=== PATIENT | female | born 1950 | race Caucasian/White ===

== ENCOUNTER 2017-08-26 21:36 | Observation (INO) | payer BC, OTHER ==
[2017-08-26 22:45] LABS: Absolute Lymphocytes (CBC) 2.4 K/uL (0.7-4.9); Absolute Monocytes 0.5 K/uL (0.1-1.3); Absolute Neutrophil 7.7 K/uL (1.8-8.0); Basophils % 0.5 % (0-1.3); Hematocrit 35.6 % (36.0-45.0); Lymphocytes % 22.2 % (15.3-44.8); MCH 29.1 pg (27.0-35.0); MPV 8.3 fL (7.6-11.3); RBC Red Blood Cell Count 4.19 M/uL (3.86-4.86)
[2017-08-26] MEDS ORDERED: ASPIRIN 81 MG CHEWABLE TABLET ONE (22:48)
[2017-08-26 22:56] LABS: Bicarbonate 26 mEq/L (21-31); Glucose Level 97 mg/dL (65-120); Potassium 3.8 mEq/L (3.6-5.0); Sodium Level 135 mEq/L (135-145)
[2017-08-26 23:02] LABS: ALT/SGPT 23 IU/L (10-60); AST/SGOT 18 IU/L (10-42); Albumin 3.6 g/dL (3.2-5.5); Alkaline Phosphatase 25 IU/L (42-121); BUN Blood Urea Nitrogen 25 mg/dL (6-20); Bilirubin Direct 0.1 mg/dL (0-0.2); Bilirubin Total 0.4 mg/dL (0.3-1.2); Creatine Phosphokinase 24 IU/L (22-269); Glomerular Filtration Rate > 90 mL/min (=/>90); Magnesium 1.7 mg/dL (1.8-2.5); Protein, Total 6.4 g/dL (6.0-8.3)
[2017-08-26 23:16] LABS: Protime INR 0.99
--- NOTE | 2017-08-27 01:10 | ER ---
Nurse's Notes [facility] Name: Gregoria Vela Age: 67 yrs Sex: Female : 1950 Arrival Date: 08/26/2017 Time: 21:40 Bed 6 Private MD: Diagnosis: Acute Chest pain;Acute shortness of breath Presentation: 08/26 21:47 Presenting complaint: Patient states: Chest pain that began at 1847; Took some antacids lp1 with no relief; pain to center of chest, burning up to neck and face. Transition of care: patient was not received from another setting of care. Onset of symptoms was August 26, 2017 at 18:47. Care prior to arrival: None. 21:47 Method Of Arrival: Wheelchair lp1 21:47 Acuity: ERIC 3 lp1 Historical: - Allergies: 21:50 Tylenol; lp1 - Home Meds: 21:50 Lisinopril Oral [Active]; fenofibrate oral oral [Active]; Aspirin Oral [Active]; lp1 Isosorbide Mononitrate Oral [Active]; Premarin Oral [Active]; Prozac Oral [Active]; Prevacid Oral [Active]; - PMHx: 21:50 lymphoma; Hypertension; Hyperlipidemia; skin cancer; lp1 - PSHx: 21:50 Hysterectomy; lp1 - Immunization history:: Adult Immunizations up to date. - Social history:: Smoking status: Patient/guardian denies using tobacco. Screenin:50 Abuse screen: Denies threats or abuse. Denies injuries from another. Nutritional lp1 screening: No deficits noted. Tuberculosis screening: No symptoms or risk factors identified. Fall Risk None identified. Assessment: 22:16 General: Appears in no apparent distress. uncomfortable, Behavior is cooperative, tl2 appropriate for age, anxious. Pain: Complains of pain in xyphoid area and mid-sternal area Pain radiates to head Pain currently is 7 out of 10 on a pain scale. Quality of pain is described as burning, sharp, stinging, Pain began this morning. Neuro: Level of Consciousness is awake, alert, obeys commands, Oriented to person, place, time, situation. Cardiovascular: Chest pain quality is burning, stabbing, is located in epigastric area radiates neck episodes are intermittent last 2-3 minutes. Respiratory: Airway is patent Respiratory effort is even, unlabored, Respiratory pattern is regular, symmetrical. GI: reports nausea during pain episodes. : No signs and/or symptoms were reported regarding the genitourinary system. Derm: Skin is pink, warm \T\ dry. 23:07 Reassessment: Patient appears in no apparent distress at this time. No changes from tl2 previously documented assessment. Patient and/or family updated on plan of care and expected duration. Pain level reassessed. Patient is alert, oriented x 3, equal unlabored respirations, skin warm/dry/pink. 08/27 00:57 Reassessment: Patient appears in no apparent distress at this time. Patient and/or tl2 family updated on plan of care and expected duration. Pain level reassessed. Patient is alert, oriented x 3, equal unlabored respirations, skin warm/dry/pink. Pt states she has not had any more episodes of pain since arrival. Pt is ambulatory to restroom. 02:00 Reassessment: Patient appears in no apparent distress at this time. Pt will be tl2 transported to room after shift change due to [employer]inder downtime. Pt resting, no questions or concerns at this time. Vital Signs: 08/26 21:48 BP 163 / 62; Pulse 77; Resp 18; Temp 97.0(TE); Pulse Ox 97% on R/A; Weight 77.11 kg; lp1 Height 5 ft. 1 in. (154.94 cm); Pain 7/10; 22:16 BP 152 / 55; Pulse 61; Resp 13; Pulse Ox 99% on R/A; tl2 23:07 BP 166 / 60; Pulse 53; Resp 13; Pulse Ox 100% on 2 lpm NC; tl2 23:57 BP 175 / 64; Pulse 54; Resp 16; Pulse Ox 99% on 2 lpm NC; mt 08/27 00:53 BP 181 / 62; Pulse 55; Resp 16; Pulse Ox 98% on 2 lpm NC; mt 06:02 BP 159 / 61; Pulse 63; Resp 17; Pulse Ox 99% on NC; mt 07:29 BP 169 / 57; Pulse 64; Resp 18; Pulse Ox 100% ; sv 08/26 21:48 Body Mass Index 32.12 (77.11 kg, 154.94 cm) lp1 Vitals: 08/26 22:16 Cardiac Rhythm Assessment Sinus rhythm. tl2 ED Course: 21:40 Patient arrived in ED. al2 21:48 Triage completed. lp1 21:48 Arm band placed on left wrist. lp1 21:50 Patient maintains SpO2 saturation greater than 95% on room air. lp1 22:05 Yovany Huang MD is Attending Physician. wa 22:15 Edith Grullon RN is Primary Nurse. tl2 22:16 Patient has correct armband on for positive identification. Bed in low position. Call tl2 light in reach. Side rails up X2. Adult w/ patient. classroom monitor on. Pulse ox on. NIBP on. 22:16 Inserted saline lock: 20 gauge in right wrist, using aseptic technique. Blood collected.tl2 22:54 X-ray completed. Portable x-ray completed in exam room. Patient tolerated procedure la2 well. 08/27 01:08 Reza Christensen MD is Hospitalizing Provider. ca 08:00 No provider procedures requiring assistance completed. Patient admitted, IV remains in sv place. intact. Administered Medications: 08/26 22:30 Drug: Aspirin Chewable Tablet 324 mg Route: PO; tl2 08/27 06:16 Follow up: Response: No adverse reaction tl2 08/26 22:30 Drug: Nitroglycerin 0.4 mg Route: Sublingual; tl2 23:00 Follow up: Response: No adverse reaction; Pain is decreased tl2 23:46 Drug: Nitroglycerin 0.4 mg Route: Sublingual; tl2 08/27 00:30 Follow up: Response: No adverse reaction; Pain is decreased tl2 Outcome: 01:09 Decision to Hospitalize by Provider. wa 08:00 Admitted to Tele accompanied by tech, via wheelchair, with oxygen, with chart, Report sv called to Sondra BRIZUELA 08:00 Condition: stable 08:00 Instructed on the need for admit. 08:29 Patient left the ED. sv Signatures: Katlyn Mills RN RN Kasia Avila RN RN lp1 Edith Grullon RN RN 2 Francisca Morse mt, William, MD MD ca Claudia Tate [facility] Rebekah Warren2 Corrections: (The following items were deleted from the chart) 08/26 23:57 23:57 BP 175 / 64; Pulse 54bpm; Resp 16bpm; Pulse Ox 99% RA; mt mt
--- NOTE | 2017-08-27 01:10 | EDPHYS ---
Physician Documentation [facility] Name: Gregoria Vela Age: 67 yrs Sex: Female : 1950 Arrival Date: 08/26/2017 Time: 21:40 Bed 6 Private MD: ED Physician Yovany Huang Historical: - Allergies: 08/26 21:50 Tylenol; lp1 - Home Meds: 21:50 Lisinopril Oral [Active]; fenofibrate oral oral [Active]; Aspirin Oral [Active]; lp1 Isosorbide Mononitrate Oral [Active]; Premarin Oral [Active]; Prozac Oral [Active]; Prevacid Oral [Active]; - PMHx: 21:50 lymphoma; Hypertension; Hyperlipidemia; skin cancer; lp1 - PSHx: 21:50 Hysterectomy; lp1 - Immunization history:: Adult Immunizations up to date. - Social history:: Smoking status: Patient/guardian denies using tobacco. Vital Signs: 21:48 BP 163 / 62; Pulse 77; Resp 18; Temp 97.0(TE); Pulse Ox 97% on R/A; Weight 77.11 kg; lp1 Height 5 ft. 1 in. (154.94 cm); Pain 7/10; 22:16 BP 152 / 55; Pulse 61; Resp 13; Pulse Ox 99% on R/A; tl2 23:07 BP 166 / 60; Pulse 53; Resp 13; Pulse Ox 100% on 2 lpm NC; tl2 23:57 BP 175 / 64; Pulse 54; Resp 16; Pulse Ox 99% on 2 lpm NC; mt 08/27 00:53 BP 181 / 62; Pulse 55; Resp 16; Pulse Ox 98% on 2 lpm NC; mt 06:02 BP 159 / 61; Pulse 63; Resp 17; Pulse Ox 99% on NC; mt 07:29 BP 169 / 57; Pulse 64; Resp 18; Pulse Ox 100% ; sv 08/26 21:48 Body Mass Index 32.12 (77.11 kg, 154.94 cm) lp1 MDM: 08/26 22:05 Patient medically screened. sc 08/26 22:23 Order name: Basic Metabolic Panel 08/26 22:23 Order name: BNP 08/26 22:23 Order name: CBC with Diff 08/26 22:23 Order name: CPK 08/26 22:23 Order name: LFT's 08/26 22:23 Order name: Magnesium 08/26 22:23 Order name: PT-INR 08/26 22:23 Order name: Troponin ([facility] Use Only) 08/26 22:49 Order name: CBC with Automated Diff; Complete Time: 23:53 EDMS 08/26 22:56 Order name: Basic Metabolic Panel; Complete Time: 23:53 EDMS 08/26 23:03 Order name: Liver (Hepatic) Function; Complete Time: 23:53 EDMS 08/26 23:03 Order name: Creatine Phosphokinase; Complete Time: 23:53 EDMS 08/26 23:03 Order name: Magnesium; Complete Time: 23:53 EDMS 08/26 23:03 Order name: Troponin ([facility] Use Only); Complete Time: 23:53 EDMS 08/26 22:23 Order name: XRAY Chest (1 view) 08/26 22:23 Order name: EKG; Complete Time: 22:24 08/26 22:23 Order name: Cardiac monitoring; Complete Time: 22:25 08/26 22:23 Order name: EKG - Nurse/Tech; Complete Time: 22:25 08/26 22:23 Order name: IV Saline Lock; Complete Time: 22:25 08/26 22:23 Order name: Labs collected and sent; Complete Time: 22:25 08/26 22:23 Order name: O2 Per Protocol; Complete Time: 22:25 08/26 22:23 Order name: O2 Sat Monitoring; Complete Time: 22:25 08/26 22:23 Order name: Urine Dipstick-Ancillary (obtain specimen); Complete Time: 00:57 08/26 23:06 Order name: BNP B-Type Natriuretic Peptide; Complete Time: 23:53 EDMS 08/26 23:17 Order name: Protime (+INR); Complete Time: 23:53 EDMS 08/27 01:09 Order name: Urine Dipstick--Ancillary (enter results) lp1 08/27 01:16 Order name: Urine Dipstick-Ancillary; Complete Time: 15:45 EDMS Administered Medications: 22:30 Drug: Aspirin Chewable Tablet 324 mg Route: PO; tl2 08/27 06:16 Follow up: Response: No adverse reaction tl2 08/26 22:30 Drug: Nitroglycerin 0.4 mg Route: Sublingual; tl2 23:00 Follow up: Response: No adverse reaction; Pain is decreased tl2 23:46 Drug: Nitroglycerin 0.4 mg Route: Sublingual; tl2 08/27 00:30 Follow up: Response: No adverse reaction; Pain is decreased tl2 Disposition: 08/27/17 01:09 Hospitalization ordered by Reza Christensen for Inpatient Admission. Preliminary diagnosis are Acute Chest pain, Acute shortness of breath. - Bed requested for Telemetry/MedSurg (Inpatient). - Status is Inpatient Admission. sv - Condition is Stable. - Problem is new. - Symptoms have improved. UTI on Admission? No Addendum: 09/08/2017 15:48 Addendum: CC: chest pain. HPI: 67 yo F c/o CP began at 1847 hrs. midsternal location. w a sharp, burning. radiates to neck and face. h/o same yesterday, lasted about 30 min. h/o same in the past. told has angina but did not f/u with the "heart doc". denies SOB, nausea, or diaphoresis. describes pain as 7/10 at the moment. PMHx: HTN. lymphoma. skin CA. elevated chol. PSurgHx: Hysterectomy. SHx: denies tobacco, ETOH or recreational drugs. Meds: lisinopril. isosorbide. finofibrate. premarin. prozac. prevacid. Allergies: tylenol. ROS: noted for chest pain. all other systems otherwise reviewed and negative. EXAM: Const: mild discomfiort secondary to chest pain. HEENT: normocephalic. atraumatic. pupils equal. throat clear. neck supple. CVS: NS1S2. RRR. no murmurs. CHEST: clear to auscultation bilaterally. normal excursion. Abd: soft. non-distended. no masses. Ext: no edema. no swelling. Neuro: appropriate for age. CN II-XII intact. no lateralizing deficits. Psych: pleasant. nml affect. DDx: r/o ACS, consider GI etiology. r/o pna. r/o pancreatitis. Plan: monitor. ASA. Nitro. check labs, EKG, CXR. reassess. Results: labs wnl. CXR: nml. EKG: no acute STEMI. reassessment: pain resolved with ASA and nitro in ED. concern for ACS. admit. cardiology consult. Dx: chest pain. . Signatures: Dispatcher [employer] EDMS Misa Copeland RN RN kl Verde, Stephanie, RN RN sv Pena, Laura, RN RN lp1 Edith Grullon RN RN tl2 Yovany Huang MD MD wa
[2017-08-27 01:16] LABS: Urine Blood NEGATIVE (NEG); Urine Glucose TRACE (NEG); Urine Protein NEGATIVE (NEG); Urine Specific Gravity 1.025 (1.005-1.030); Urine pH 6.5 (5.0-7.0)
--- NOTE | 2017-08-27 01:34 | P.HP ---
Certification for Inpatient Patient admitted to: Observation With expected LOS: <2 Midnights Practitioner: I am a practitioner with admitting privileges, knowledge of patient current condition, hospital course, and medical plan of care. Services: Services provided to patient in accordance with Admission requirements found in Title 42 Section 412.3 of the Code of Federal Regulations Patient History Date of Service: 08/27/17 Reason for admission: chest pain History of Present Illness: Ms Vela is a 67 years old woman with history of HTN, dyslipidemia, who had an episode of chest pain yesterday afternoon, located on substernal area, burning sensation 8/10, no rediated, associated with nausea and diaphoresis. The pain last for 12 seconds. Last night she had a new chest pain episode, located in substernal area, this time was pressure like, associated with nausea and diaphoresis as well. It improved after receive Nitro in ER. The patient states that she had chest pain in the past, she had cardiac work up in the past and was told that she has mild CHF. - Past Medical/Surgical History Diabetic: No -: lymphoma; Hypertension; Hyperlipidemia; skin cancer; -: GERD -: Hysterectomy - Family History Family History: Reviewed- Non-Contributory - Social History Smoking Status: Former smoker Alcohol use: No CD- Drugs: No Place of Residence: Home Review of Systems 10-point ROS is otherwise unremarkable Physical Examination - Physical Exam General: Alert, In no apparent distress HEENT: Atraumatic, PERRLA, Mucous membr. moist/pink, EOMI, Sclerae nonicteric Neck: Supple, 2+ carotid pulse no bruit, No LAD, Without JVD or thyroid abnormality Respiratory: Clear to auscultation bilaterally, Normal air movement Cardiovascular: Regular rate/rhythm, Normal S1 S2 Gastrointestinal: Normal bowel sounds, No tenderness Musculoskeletal: No tenderness Integumentary: No rashes Neurological: Normal speech, Normal strength at 5/5 x4 extr, Normal tone, Normal affect Lymphatics: No axilla or inguinal lymphadenopathy - Studies Laboratory Data (last 24 hrs) 08/26/17 22:20: PT 11.8, INR 0.99 08/26/17 22:20: WBC 10.6, Hgb 12.2, Hct 35.6 L, Plt Count 246 08/26/17 22:20: B-Natriuretic Peptide 35 08/26/17 22:20: Sodium 135, Potassium 3.8, BUN 25 H, Creatinine 0.57, Glucose 97 , Magnesium 1.7 L, Total Bilirubin 0.4, AST 18, ALT 23, Alkaline Phosphatase 25 L Assessment and Plan - Problems (Diagnosis) (1) Chest pain Current Visit: Yes Status: Acute Qualifiers: Chest pain type: precordial pain Qualified Code(s): R07.2 - Precordial pain (2) HTN (hypertension) Current Visit: Yes Status: Acute Qualifiers: Hypertension type: essential hypertension Qualified Code(s): I10 - Essential (primary) hypertension (3) Dyslipidemia Current Visit: Yes Status: Acute - Plan Ms Vela will be admitted to the hospital due to chest pain in order to R/O ACS. So far trop is negative, EGG remarkable for T wave inversion on septal leads. Will continue serial cardiac enzymes and EKG's, consult cardiology team. - Advance Directives Does patient have a Living Will: No Does patient have a Durable POA for Healthcare: No - Code Status/Comfort Care Code Status Assessed: Yes Code Status: Full Code
--- NOTE | 2017-08-27 05:12 | EKG ---
Test Date: 2017-08-26 Test Time: 21:56:37 Evs Attendant: ANNA MEASUREMENT RESULTS: Intervals: Rate: 60 IN: 122 QRSD: 78 QT: 420 QTc: 420 [place]: P: 55 IN: 122 QRS: -2 T: 45 INTERPRETIVE STATEMENTS: Normal sinus rhythm Nonspecific ST and T wave abnormality Abnormal ECG No previous ECG available for comparison Electronically Signed On 08-27-17 05:11:43 CDT by Jimmy Estrada
[2017-08-27] MEDS ORDERED: ONDANSETRON 4 MG/2 ML VIAL IV PRN (08:33)
[2017-08-27] MEDS ORDERED: ACETAMINOPHEN 500 MG TAB PO PRN (08:33)
--- NOTE | 2017-08-27 08:44 | RAD REPORT ---
EXAM DESCRIPTION: RAD - Chest Single View - 08/26/2017 10:56 pm CLINICAL HISTORY: Chest pain COMPARISON: None. TECHNIQUE: AP portable chest image was obtained 2251 hours . FINDINGS: Lungs are clear. Heart and vasculature are normal. No measurable pleural effusion and no p neumothorax. No gross bony abnormality seen. No acute aortic findings suspected. IMPRESSION: No acute cardiopulmonary process.
[2017-08-27 08:51] VITALS: BMI 32.1
[2017-08-27] MEDS ORDERED: ENOXAPARIN 40 MG/0.4 ML SQ SCH (09:00)
[2017-08-27] MEDS ORDERED: ASPIRIN EC 81 MG TAB PO SCH (09:00)
--- NOTE | 2017-08-27 10:47 | EKG ---
Test Date: 2017-08-27 Test Time: 09:31:26 Paint Maker: NESTOR MEASUREMENT RESULTS: Intervals: Rate: 65 IN: 136 QRSD: 90 QT: 430 QTc: 447 [place]: P: 46 IN: 136 QRS: -3 T: 71 INTERPRETIVE STATEMENTS: Normal sinus rhythm Non specific T abnormality Abnormal ECG Compared to ECG 08/26/2017 21:56:37 no significant change from previous ECG Electronically Signed On 08-27-17 10:46:51 CDT by Jimmy Estrada
[2017-08-27] MEDS: PANTOPRAZOLE 40MG TABLET PO SCH (12:47)
[2017-08-27] MEDS: TRAMADOL HCL 50 MG TAB PO PRN ×2 (13:50→20:22)
[2017-08-27] MEDS ORDERED: ISOSORBIDE MONO SR 30 MG TAB PO SCH (15:00)
[2017-08-27] MEDS: hydroCHLOROthiazide 12.5 MG CAP PO SCH (15:18)
--- NOTE | 2017-08-27 15:48 | CON ---
Chief Complaint: Chest pain. History Of Present Illness: Light night at 3:37 exactly, she had intense pain upper left side of her chest. Then she had pain all over her face and head and went away when she reached the emergency ro om. She never had any electrocardiographic changes. In the emergency room, the physicians gave her nothing that actually relieved her pain. Later she was started on aspirin and sublingual nitroglycer in. Her pain was already gone by the time she had received that. The patient has a history of a fol licular lymphoma. She has undergone chemotherapy. She says it is in remission. It was stage 3 to b egin with, apparently no surgery other than biopsy. No radiation was involved in the treatment. She has underlying anxiety and depression. 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 He has d one stress tests and echocardiograms. No cardiac cath was ever done and of course, no bypass surgery or stents. Outpatient Medications: Lumigan eye drops, Prozac, isosorbide mononitrate, conjugated estrogens, asp irin, fenofibrate, lisinopril, hydrochlorothiazide, and Prevacid. Physical Examination: Vital Signs: Height 5 feet 1 inches, 170 pounds. HEENT: Unremarkable. Carotids: No bruit. Lungs: Clear. Cardiac: Within normal limits. Abdomen: Soft. Extremities: Normal. Laboratory Data: Troponins are normal. Her EKG shows a nonspecific T-wave abnormality. Apparently, it is look like that for some time. Impression And Plan: I think we should check other enzymes, have her do a nuclear stress test and ca rdiac ultrasound of the abdomen to see if we can understand what is actually causing her pain. Clearly does not seem to be an acute OK. NOA/MODL Voice ID: [id number] Report ID: [id number]
[2017-08-27] MEDS: LISINOPRIL 20 MG TAB PO SCH (17:09)
[2017-08-27] MEDS ORDERED: HOME MED 1 EA UNK (Lisinopril/Hydrochlorothiazide [Lisinopril-Hctz 20-12.5 Mg Tab] 1 TAB) PO SCH (18:00)
[2017-08-27] MEDS ORDERED: FENOFIBRATE 160 MG TAB PO SCH (18:00)
--- NOTE | 2017-08-27 20:39 | RAD REPORT ---
EXAM DESCRIPTION: US - Abdomen Exam Complete - 08/27/2017 8:31 pm CLINICAL HISTORY: Abdominal pain COMPARISON: None. FINDINGS: Gallbladder size is normal. No gallstones, wall thickening or pericholecystic fluid. Commo n bile duct is normal with no common duct stone identified. The liver and spleen show no focal findin gs. Coarsened, increased echogenicity of the liver is present. This is nonspecific but commonly seen with fatty infiltration. The pancreas is normal. No hydronephrosis or suspicious mass in either kidney. Aorta is normal is size. No ascites or bulky lymphadenopathy. IMPRESSION: No gallbladder or biliary tree abnormality. Probable fatty infiltration of the liver.
[2017-08-28] MEDS: LISINOPRIL 20 MG TAB PO SCH (06:08)
[2017-08-28] MEDS: hydroCHLOROthiazide 12.5 MG CAP PO SCH (06:13)
[2017-08-28] MEDS: PANTOPRAZOLE 40MG TABLET PO SCH (06:35)
[2017-08-28] MEDS ORDERED: FLUOXETINE 20 MG CAP PO SCH (09:00)
[2017-08-28] MEDS ORDERED: ASPIRIN EC 81 MG TAB PO SCH (09:00)
[2017-08-28] MEDS ORDERED: HOME MED 1 EA UNK (Fluoxetine Hcl [Fluoxetine Hcl] 20 MG) PO SCH (09:00)
[2017-08-28] MEDS ORDERED: ISOSORBIDE MONO SR 30 MG TAB PO SCH (09:00)
[2017-08-28] MEDS ORDERED: REGADENOSON 0.4 MG/5 ML SYR IV ONE (11:46)
[2017-08-28] MEDS: TRAMADOL HCL 50 MG TAB PO PRN (13:17)
--- NOTE | 2017-08-28 13:21 | RAD REPORT ---
EXAM DESCRIPTION: NM - Rest Stress Cardiac Imaging - 08/28/2017 1:14 pm CLINICAL HISTORY: Chest pain. COMPARISON: None. TECHNIQUE: The patient was administered approximately 10mCi of Tc 99m Sestamibi prior to resting SPE CT imaging of the heart. The patient was then administered approximately 30 mCi of Tc 99m Sestamibi f ollowing exercise or pharmacologic stress. Multiplanar SPECT images were reviewed. FINDINGS: A small area of diminished radiotracer activity involves the apical left ventricular myoc ardium on rest and stress images. Otherwise there is uniformity of radiotracer activity involving the left ventricular myocardium. The left ventricular ejection fraction equals 73% IMPRESSION: Small area of diminished radiotracer uptake involving the apical wall probably is physio logic. There is no evidence of stress-induced ischemia
[2017-08-28 13:34] VITALS: O2SAT 96
--- NOTE | 2017-08-28 13:38 | ECHO ---
HEIGHT: 5 ft 1 in WEIGHT: 170 lb 0 oz DATE OF STUDY: 08/28/[address]: Jimmy Estrada MD 2-DIMENSIONAL: YES M.MODE: YES DOPPLER: YES COLOR FLOW: YES TDS: NO PORTABLE: NO DEFINITY: NO BUBBLE STUDY: NO DIAGNOSIS: CHEST PAIN CARDIAC HISTORY: CATHERIZATION: NO SURGERY: NO PROSTHETIC VALVE: NO PACEMAKER: NO MEASUREMENTS (cm) DIASTOLIC (NORMALS) SYSTOLIC (NORMALS) IVSd 0.8 (0.6-1.2) LA Diam 3.4 (1.9-4.0) LVEF 65% LVIDd 4.7 (3.5-5.7) LVIDs 3.1 (2.0-3.5) %FS 35% LVPWd 0.7 (0.6-1.2) Ao Diam 2.8 (2.0-3.7) 2 DIMENSIONAL ASSESSMENT: RIGHT ATRIUM: NORMAL LEFT ATRIUM: NORMAL RIGHT VENTRICLE: NORMAL LEFT VENTRICLE: NORMAL TRICUSPID VALVE: NORMAL MITRAL VALVE: NORMAL PULMONIC VALVE: NORMAL AORTIC VALVE: NORMAL PERICARDIAL EFFUSION: NONE AORTIC ROOT: NORMAL LEFT VENTRICULAR WALL MOTION: NORMAL. DOPPLER/COLOR FLOW: NORMAL. COMMENTS: NORMAL 2D ECHO WITH DOPPLER. TECHNOLOGIST: JOANIE FONTANA
[2017-08-28 16:20] VITALS: BP 134/61; TEMP 97.4
--- NOTE | 2017-08-28 16:48 | TREADPHA ---
DX: CHEST PAIN Date of Study: 08/28/2017 Ht: 5' 1 " Wt: 170 lb 0 oz Consulting Physician: LOC MEDICATIONS: ASPIRIN, TRICOR, PROZAC, IMDURM, PRINIVIL, ZOFRAN, PROTONIX, ULTRAM HISTORY: 67 YEAR OLD FEMALE HERE FOR CHEST PAIN. HISTORY OF LYMPHOMA, HYPERTENSION, HYPERLIPIDEMIA AND SKIN CANCER. PHYSICIAL EXAMINATION: RESTING B.P.: 156/50 RESTING H.R.: 76 RESTING EKG: NON-SPECIFIC T WAVE ABNORMALITY PROTOCOL: EXERCISE TIME: 3:30 B.P. AT PEAK STRESS: 76 IMPRESSION: LEXISCAN STRESS TEST PERFORMED. CARDIOLITE INJECTED PER PROTOCOL. NO ARRHYTHMIAS NOTED. DENIES CHEST PAIN. SEE NUCLEAR MEDICINE REPORT. NON-DIAGNOSTIC ELECTROCARDIOGRAM WITH LEXISCAN STRESS.
--- NOTE | 2017-08-28 17:22 | RAD REPORT ---
EXAM DESCRIPTION: CT - Angio Aorta For Dissection - 08/28/2017 5:12 pm CLINICAL HISTORY: Weakness, chest pain, prior hysterectomy, prior lymphoma diagnosis COMPARISON: Chest exam August 26 TECHNIQUE: Dynamically enhanced 3 mm thick images of the chest, abdomen, and upper pelvis were obtai justina during administration of approximately 150mL Isovue 370 IV contrast. Sagittal and coronal reconst ruction images were generated and reviewed. Exam utilizes a protocol to evaluate entire course of the aorta. All CT scans are performed using dose optimization technique as appropriate and may include automated exposure control or mA/KV adjustment according to patient size. FINDINGS: Aorta is normal in diameter with no dissection or other acute aortic findings. Reconstruct ion images show no worrisome findings. Patient has aortoiliac atherosclerotic calcifications. No disp laced calcifications. Aortic arch is four-vessel variant with the vertebral artery on the left arisin g proximal to the subclavian artery. Pulmonary arteries are normal as well. No cardiomegaly, pericardial thickening or pericardial effusio n. No mass or infiltrate in the lung parenchyma. No pleural thickening, pleural effusion or pneumothorax . No abnormal mediastinal or hilar mass or lymphadenopathy seen. No chest wall mass or abnormal axillar y lymphadenopathy. Celiac, SMA and renal arteries show no suspicious findings. Probable fatty infiltration of the liver. No focal liver lesion. Spleen and pancreas are unremarkable. No gallbladder or biliary tree abnormal ity. No mass or abnormal lymphadenopathy. No free air, free fluid or inflammatory stranding. Urinary bladder is contracted. Uterus is absent. Pelvic floor phleboliths are present. Disc and bony degenerative changes are present. No acute or destructive bone process seen. IMPRESSION: Negative CT scan of the aorta. CT chest, abdomen and pelvis otherwise show no acute findings. Nonacute findings are detailed in the body of the report.
--- NOTE | 2017-08-29 02:24 | DS ---
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 Procedures: Nuclear stress test on 08/28/2017, negative. No evidence of stress -induced ischemia. Admitting Diagnoses: 1. Chest pain. 2. Hypertension, essential. 3. Dyslipidemia. 4. Glaucoma. 5. History of lymphoma. 6. Gastroesophageal reflux disease, proton-pump inhibitor. Discharge Diagnoses: 1. Chest pain. Acute coronary syndrome ruled out. 2. Essential hypertension, stable. 3. Dyslipidemia. 4. History of lymphoma. 5. History of skin cancer. 6. Gastroesophageal reflux disease on proton-pump inhibitor. Hospital Course: The patient is a 67-year-old female, who came in with chest pain. She was admitted to the hospital for chest pain, rule out ACS. The patient's enzymes were negative. She did not have any changes on her EKG. The patient was seen by Cardiology, recommended stress test. Stress test was done which was negative for any stress-induced ischemia. Chest x-ray did not show any acute cardiopulmonary process. Echocardiogram showed EF of 65% without any other abnormalities. The patient also had abdominal ultrasound done which showed no gallbladder or biliary tree abnormality, did show some fatty infiltration of the liver. CT scan was done to rule out aortic dissection which was negative. The patient's symptoms improved. She was chest pain free. Her vital signs were stable. Her labs were within normal limits. The patient was then cleared for discharge from Cardiology standpoint. Followup: The patient to follow up with primary care physician in 2 to 3 days. Follow up with director social, Dr. Godwin, in 2 weeks. Return to ER for worsening condition. Diet: Heart healthy. Medications: As per medication reconciliation list. Activity: As tolerated. Physical Examination: General: Awake, alert, oriented x3. No acute distress. CV: S1, S2. No murmurs. Peripheral pulses present. Respiratory: Moving air well bilaterally. No wheezing. Abdomen: Soft, nontender, nondistended. Positive bowel sounds. Extremities: No clubbing, cyanosis, or edema. Neurologic: Nonfocal. SA/MODL Voice ID: [id number] Report ID: [id number] [facility]
== END 2017-08-28 18:20 | disposition home or self-care (01) ==
LOC: ER 21:36 → INTOOBSV 08-27 01:09 → ERHOLD 08-27 01:09 → 4TH 08-27 01:53
PROVIDERS: ADMIT Internal Medicine; ATTEND Internal Medicine
DX: R07.9 Chest pain, unspecified (principal); I10 Essential (primary) hypertension; E78.5 Hyperlipidemia, unspecified; Z85.72 Personal history of non-Hodgkin lymphomas; Z85.828 Personal history of other malignant neoplasm of skin; K21.9 Gastro-esophageal reflux disease without esophagitis
CPT/HCPCS: 36415; 71045; 71275; 74175; 76700; 78452; 80048; 80076; 81003; 82550; 83735; 83880; 84484; 85025; 85610; 93005; 93017; 93306; 99285; A9500; G0378; J1650; J2785; Q9967

== ENCOUNTER 2019-02-08 12:49 | Emergency (ER) | payer BC, SELFPAY ==
--- OUTSIDE RECORDS SUMMARY | 2019-02-08 12:51 | XMS REPORT | Continuity of Care Document ---
:1950 Author Organization [employer] Care Team Providers Name Role Phone Maxta Information Vaultive Unavailable Unavailable Problems Problem Status Onset Classification Date Comments Source Date Reported C83.3 Active [place] 6 [place] MESENTERIC LYMPH Active [facility] NODE-I88.0 6 [place] Angina pectoris, Resolved Problem 06/03/2016 [place] unspecified [place] Anxiety Active Problem 06/03/2016 [facility] Back pain Active Problem 06/03/2016 [facility] Acid reflux Active Problem 06/03/2016 [facility] Hypertension Active Problem 06/03/2016 [place] Skin cancer Resolved Problem 06/03/2016 [place] Neck pain Active Problem 06/03/2016 [facility] Medications Medication Details Route Status Patient Ordering Order Source Instructions Provider Date Roxicodone 5 mg, Route: Inactive PO, ONCE, 2015 [place] Dosing Weight [place] 67.864, kg, Start date: 05/02/16 14:33:00 CLAY WASHER, Stop date: 05/02/16 14:33:00 CLAY WASHER glycopyrrolate Route: IV, Drug Inactive (ANES) form: INJ, 2015 [place] ONCE, Stop [place] date: 05/02/16 12:36:00 CLAY WASHER neostigmine (ANES) Route: IV, Drug Inactive form: INJ, 2015 [place] ONCE, Stop [place] date: 05/02/16 12:36:00 CLAY WASHER Meperidine 12.5 mg, 0.5 Inactive mL, Route: IVP, 2015 [place] Drug form: INJ, [place] Q30Min, Dosing Weight 67.864, kg, PRN Other -See Comment, For shivering, Start date: 05/02/16 12:29:00 CLAY WASHER, Duration: 2 doses or times, Stop date: Limited # of timesNotes: (Same as: Demerol) "Use Precaution in Elderly, Seizure disorders, and Renal impairment" Dexamethasone 4 mg, 1 mL, Inactive Route: IVP2015 [place] Drug form: INJ, [place] ONCE, Dosing Weight 67.864, kg, PRN Nausea & Vomiting, Start date: 05/02/16 12:29:00 CSTNotes: Concentration: 4mg/ml Ondansetron 4 mg, 2 mL, Inactive Route: IVP2015 [place] Drug form: INJ, [place] ONCE, Dosing Weight 67.864, kg, PRN Nausea & Vomiting, Start date: 05/02/16 12:29:00 CSTNotes: (Same as: Zofran) MEDICATION WASTE Product Size: 4 mg Product Wasted: ___ mg Ketorolac 30 mg, 1 mL, Inactive Route: IVP2015 [place] Drug form: INJ, [place] ONCE, Dosing Weight 67.864, kg, Start date: 05/02/16 12:29:00 CLAY WASHER, Duration: 1 doses or times, Stop date: 05/02/16 12:29:00 CSTNotes: (Same as:Toradol) IV bolus must be given >15 seconds. Give IM administration slowly and deeply into the muscle. Not for use > 4 days MEDICATION WASTE Product Size: 30 mg Product Wasted: ___ mg Oxycodone 2.5 mg, 2.5 mL, Inactive Route: PO, Drug 2015 [place] form: LIQ, Q4H, [place] Dosing Weight 67.864, kg, PRN Pain Score 4-6, Start date: 05/02/16 12:29:00 CLAY WASHER, Duration: 30 day, Stop date: 06/01/16 12:28:00 CSTNotes: (Same as: 'Roxicodone) Acetaminophen 1,000 mg, Inactive Route: IVPB2015 [place] Drug form: INJ, [place] Q6H, Dosing Weight 67.727, kg, PRN Pain Score 1-3, Start date: 05/02/16 12:29:00 CLAY WASHER, Duration: 1 doses or times, Stop date: Limited # of times Labetalol 10 mg, 2 mL, Inactive Route: IVP, 2015 [place] Drug form: INJ, [place] Q5Min, Dosing Weight 67.864, kg, PRN Elevated BP, Start date: 05/02/16 12:29:00 CLAY WASHER, Duration: 5 doses or times, Stop date: Limited # of timesNotes: (Same as: Normodyne, Trandate) Push over 2 minutes Give bolus over 2-3 minutes. Naloxone 0.4 mg, 1 mL, Inactive Route: IVP, 2015 [place] Drug form: INJ, [place] Q2MIN, Dosing Weight 67.864, kg, PRN Narcotic Reversal, Start date: 05/02/16 12:29:00 CLAY WASHER, Duration: 8 doses or times, Stop date: Limited # of timesNotes: Same as Narcan Flumazenil 0.2 mg, 2 mL, Inactive Route: IVP2015 [place] Drug form: INJ, [place] PRN, Dosing Weight 67.864, kg, PRN Benzodiazepine Reversal, Initial dose, Start date: 05/02/16 12:29:00 CLAY WASHER, Duration: 30 day, Stop date: 06/01/16 12:28:00 CSTNotes: (Same as: Romazicon) Hydromorphone 0.5 mg, 0.25 Inactive mL, Route: IVP2015 [place] Drug form: INJ, [place] Q5Min, Dosing Weight 67.864, kg, PRN Pain Score 7-10, Start date: 05/02/16 12:29:00 CLAY WASHER, Duration: 4 doses or times, Stop date: Limited # of timesNotes: Same as Dilaudid POLYETHYLENE GLYCOL 17 gm, PO, Active 3350 142 MG/ML Oral Daily, PRN 2016 [facility] Solution [Miralax] Constipation, X [place] 31 day, # 527 gm, 0 Refill(s) tramadol 50 mg=1 tab, Active hydrochloride 50 MG PO, Q6H, PRN 2016 [place] Oral Tablet Pain, X 7 day, Land # 28 tab, 0 Refill(s) ondansetron (ANES) Route: IV, Drug Inactive form: INJ, 2015 [place] ONCE, Stop [place] date: 05/02/16 11:54:00 CLAY WASHER ePHEDrine (ANES) Route: IV, Drug Inactive form: INJ, 2015 [place] ONCE, Stop [place] date: 05/02/16 11:14:00 CLAY WASHER metoclopramide Route: IV, Drug Inactive (ANES) form: INJ, 2015 [place] ONCE, Stop [place] date: 05/02/16 11:04:00 CLAY WASHER famotidine (ANES) Route: IV, Drug Inactive form: INJ, 2015 [place] ONCE, Stop [place] date: 05/02/16 11:04:00 CLAY WASHER rocuronium (ANES) Route: IV, Drug Inactive form: INJ, 2015 [place] ONCE, Stop [place] date: 05/02/16 11:04:00 CLAY WASHER acetaminophen (ANES) Route: IV, Drug Inactive form: INJ, 2015 [place] ONCE, Stop [place] date: 05/02/16 11:04:00 CLAY WASHER propofol (ANES) Route: IV, Drug Inactive form: INJ, 2015 [place] ONCE, Stop [place] date: 05/02/16 10:59:00 CLAY WASHER succinylcholine Route: IV, Drug Inactive (ANES) form: INJ, 2015 [place] ONCE, Stop [place] date: 05/02/16 10:59:00 CLAY WASHER midazolam (ANES) Route: IV, Drug Inactive form: SOLN, 2015 [place] ONCE, Stop [place] date: 05/02/16 10:59:00 CLAY WASHER fentaNYL (ANES) Route: IV, Drug Inactive form: INJ, 2015 [place] ONCE, Stop [place] date: 05/02/16 10:59:00 CLAY WASHER lidocaine (ANES) Route: IV, Drug Inactive form: INJ, 2015 [place] ONCE, Stop [place] date: 05/02/16 10:59:00 CLAY WASHER cefOXitin (ANES) Route: IV, Drug Inactive form: INJ, 2015 [place] ONCE, Stop [place] date: 05/02/16 10:54:00 CLAY WASHER LR 1000 mL INJ Route: IV, Inactive (ANES) Total Volume: 2015 [place] 1,000, Start [place] date: 05/02/16 10:19:00 CLAY WASHER, Stop date: 05/02/16 11:19:00 CLAY WASHER Neurontin 300 mg, 1 cap, Inactive Route: PO, Drug 2015 [place] form: CAP, [place] ONCE, Start date: 05/02/16 9:30:00 CLAY WASHER, Stop date: 05/02/16 9:30:00 CSTNotes: (Same as: Neurontin) Calcium Chloride 1,000 mL, Rate: Inactive 0.0014 MEQ/ML / 25 ml/hr, 2015 [place] Potassium Chloride Infuse over: 40 [place] 0.004 MEQ/ML / hr, Route: IV, Sodium Chloride Dosing Weight 0.103 MEQ/ML / 67.727 kg, Sodium Lactate 0.028 Total Volume: MEQ/ML Injectable 1,000, Start Solution date: 05/02/16 7:59:00 CLAY WASHER, Duration: 30 day, Stop date: 06/01/16 7:58:00 CLAY WASHER Lovenox 40 mg, 0.4 mL, Inactive Route: SUB-Q, 2015 [place] Drug form: INJ, Land ONCALL, Start date: 05/02/16 6:00:00 CLAY WASHER, Duration: 1 doses or times, Stop date: 05/02/16 23:59:00 CSTNotes: (Same as: Lovenox) CeleBREX 400 mg, 2 cap, Inactive Route: PO, Drug 2015 [place] form: CAP, Land ONCALL, Start date: 05/02/16 6:00:00 CLAY WASHER, Duration: 1 doses or times, Stop date: 05/02/16 23:59:00 CSTNotes: NSAID. Please check indication. Not for seizure. (Same As: CeleBREX) Mefoxin + sodium 2 gm, Route: Inactive chloride 0.9% INJ IVPB, ONCALL, 2015 [place] 100 mL Start date: Tobin 05/02/16 6:00:00 CLAY WASHER, Duration: 1 doses or times, Stop date: 05/02/16 23:59:00 CSTNotes: (Same As: Mefoxin) MEDICATION WASTE Product Size: 2000 mg Product Wasted: ___ mg Neurontin 300 mg, 1 cap, Inactive Route: PO, Drug 2015 [place] form: CAP, [place] ONCE, Start date: 05/02/16 6:00:00 CLAY WASHER, Stop date: 05/02/16 6:00:00 CSTNotes: (Same as: Neurontin) Fish Oil 1200 mg =2 tab, PO, Active oral capsule PRN, 0 2015 [place] Refill(s) [place] biotin 1000 mcg oral 2,000 Active tablet microgram=2 2015 [place] tab, PO, Daily, [place] # 30 tab, 0 Refill(s) lansoprazole 30 MG 30 mg=1 cap, Active Enteric Coated PO, Daily, 0 2015 [place] Capsule [Prevacid] Refill(s) [place] Aspirin 325 MG Oral 325 mg=1 tab, Active Tablet PO, BID, 0 2015 [place] Refill(s) [place] latanoprost 0.05 1 drp, QPM, 0 Active MG/ML Ophthalmic Refill(s) 2015 [place] Solution [Xalatan] [place] Niacin SR 500 mg 500 mg=1 cap, Active oral capsule, PO, Bedtime, 0 2015 [place] extended release Refill(s) [place] Fenofibrate 145 MG 145 mg=1 tab, Active Oral Tablet PO, Daily, 0 2015 [place] Refill(s) [place] acyclovir 200 mg 200 mg=1 cap, Active oral capsule PO, TID, 0 2015 [place] Refill(s) [place] carisoprodol 350 mg 350 mg=1 tab, Active oral tablet PO, QID, 0 2015 [place] Refill(s) [place] Estrogens, 1.25 mg=1 tab, Active Conjugated (LONG TERM) PO, Daily, 0 2015 [place] 1.25 MG Oral Tablet Refill(s) [place] [Premarin] FLUoxetine 20 mg 20 mg=1 tab, Active oral tablet PO, Daily, 0 2015 [place] Refill(s) [place] isosorbide dinitrate 30 mg=1 tab, Active 30 mg oral tablet PO, Daily, 0 2015 [place] Refill(s) [place] Hydrochlorothiazide 1 tab, PO, Active 12.5 MG / Lisinopril Daily, 0 2015 [place] 20 MG Oral Tablet Refill(s) [place] Allergies, Adverse Reactions, Alerts Substance Category Reaction Severity Reaction Status Date Comments Source type Reported Tylenol Assertion rash Drug Active allergy [facility] Immunizations No Data Provided for This Section Results Order Name Results Value Reference Date Interpretation Comments Source Range HEMATOLOGY Eosinophils # 0.2 0.0 - 0.5 12/27/ MH 2016 [place] HEMATOLOGY Monocytes 5.5 2.0 - 12.0 2015 [place] HEMATOLOGY Segs 57.7 45.0 - 75.0 2015 [place] HEMATOLOGY Lymphocytes 33.5 20.0 - 40.0 2015 [place] HEMATOLOGY Eosinophils 2.9 0.0 - 4.0 2015 [place] HEMATOLOGY Segs-Bands # 4.9 1.5 - 8.1 2015 [place] HEMATOLOGY Lymphocytes # 2.9 1.0 - 5.5 2015 [place] HEMATOLOGY Monocytes # 0.5 0.0 - 0.8 2015 [place] HEMATOLOGY Basophils 0.4 0.0 - 1.0 2015 [place] HEMATOLOGY Basophils # 0.0 0.0 - 0.2 2015 [place] HEMATOLOGY Large Plt Slight 2015 [place] HEMATOLOGY Hgb 13.3 12.0 - 16.0 2015 [place] HEMATOLOGY WBC 8.5 3.7 - 10.4 2015 [place] HEMATOLOGY RBC 4.72 4.20 - 5.40 2015 [place] HEMATOLOGY MCHC 32.7 32.0 - 36.0 2015 [place] HEMATOLOGY MCH 28.2 27.0 - 31.0 2015 [place] HEMATOLOGY RDW 15.7 11.5 - 14.5 2015 [place] HEMATOLOGY MCV 86.5 80.0 - 98.0 2015 [place] HEMATOLOGY Hct 40.8 36.0 - 48.0 2015 [place] HEMATOLOGY MPV 9.6 7.4 - 10.4 2015 [place] HEMATOLOGY Platelet 268 133 - 450 2015 [place] HEMATOLOGY PT 13.5 12.0 - 14.7 2015 [place] HEMATOLOGY INR 1.01 0.85 - 1.17 2015 [place] HEMATOLOGY PTT 33.2 22.9 - 35.8 2015 [place] HEMATOLOGY Platelet 276 133 - 450 2015 [place] CHEM PANEL eGFR 97 2015 Comment: The [place] eGFR is Land calculated using the CKD-EPI formula. In most young, healthy individuals the eGFR will be >90 mL/min/1.73m2 . The eGFR declines with age. An eGFR of 60-89 may be normal in some populations, particularly the elderly, for whom the CKD-EPI formula has not been extensively validated. Use of the eGFR is not recommended in the following populations:< br/>
Sade viduals with unstable creatinine concentration s, including patients and those with serious co-morbid conditions.<b r/>
Patie nts with extremes in muscle mass or diet.

The data above are obtained from the National Kidney Disease Education Program (NKDEP) which additionally recommends that when the eGFR is used in patients with extremes of body mass index for purposes of drug dosing, the eGFR should be multiplied by the estimated BMI. CHEM PANEL Sodium Lvl 137 135 - 145 2015 [place] CHEM PANEL BUN 16 7 - 22 2015 [place] CHEM PANEL CO2 27 24 - 32 2015 [place] CHEM PANEL Creatinine 0.60 0.50 - 1.40 Lvl 2015 [place] CHEM PANEL Glucose Lvl 97 70 - 99 2015 [place] CHEM PANEL Potassium Lvl 4.0 3.5 - 5.1 2015 [place] CHEM PANEL Calcium Lvl 9.0 8.5 - 10.5 2015 [place] CHEM PANEL Chloride Lvl 101 95 - 109 2015 [place] CHEM PANEL AGAP 13.0 10.0 - 20.0 2015 [place] HEMATOLOGY MPV 8.6 7.4 - 10.4 2015 [place] HEMATOLOGY Platelet 323 133 - 450 2015 [place] HEMATOLOGY MCHC 33.2 32.0 - 36.0 2015 [place] HEMATOLOGY MCH 28.2 27.0 - 31.0 2015 [place] HEMATOLOGY RDW 15.2 11.5 - 14.5 2015 [place] HEMATOLOGY Hgb 12.6 12.0 - 16.0 2015 [place] HEMATOLOGY Hct 38.0 36.0 - 48.0 2015 [place] HEMATOLOGY MCV 85.0 80.0 - 98.0 2015 [place] HEMATOLOGY WBC 8.8 3.7 - 10.4 2015 [place] HEMATOLOGY RBC 4.47 4.20 - 5.40 2015 [place] HEMATOLOGY Basophils # 0.1 0.0 - 0.2 2015 [place] HEMATOLOGY Eosinophils # 0.1 0.0 - 0.5 2015 [place] HEMATOLOGY Eosinophils 1.3 0.0 - 4.0 2015 [place] HEMATOLOGY Monocytes 6.7 2.0 - 12.0 2015 [place] HEMATOLOGY Lymphocytes # 2.9 1.0 - 5.5 2015 [place] HEMATOLOGY Monocytes # 0.6 0.0 - 0.8 2015 [place] HEMATOLOGY Lymphocytes 33.2 20.0 - 40.0 2015 [place] HEMATOLOGY Segs-Bands # 5.1 1.5 - 8.1 2015 [place] HEMATOLOGY Basophils 0.6 0.0 - 1.0 2015 [place] HEMATOLOGY Segs 58.2 45.0 - 75.0 2015 [place] Pathology Reports No Data Provided for This Section Diagnostic Reports Report Value Date Source Bone Marrow Aspiration PROCEDURES PERFORMED: 05/31/2016 [facility] CT 1. Bone Marrow aspiration and core needle biopsy. 2. CT guidance. 3. Moderate Sedation HISTORY: Abnormal blood differential; history of non-Hodgkin's lymphoma Possible risks and complications of the procedure were discussed with the patient. Possible risks including pain, infection, bleeding, nondiagnostic sampling with need for resampling were discussed. The patient understood and asked to proceed. SEDATION: Moderate sedation for 30 minutes with fentanyl and Versed was carried out with monitoring by the nursing staff and myself throughout the procedure. Total DLP: 324.99 mGy-cm PROCEDURE DETAILS: Sterile barrier technique was followed including: Cap and mask, sterile gown , sterile gloves, and large sterile sheet. Hand hygiene, and 2% chlorhexidine for cutaneous antisepsis (or acceptable alternative antiseptics, per current guideline). The patient was placed supine on the CT scanner and a focused non-contrast scan of the pelvis was performed. The right gluteal region was prepped and draped in a standard sterile fashion. After administering local anesthesia, an 18-gauge bone biopsy needle was advanced with CT guidance into the left iliac bone. Satisfactory position was confirmed with CT. Approximately 7 cc of marrow w as aspirated and given to the surface lay out technician for preparation. An 8 gauge bone biopsy needle was then advanced under CT guidance into the right iliac bone and a core sample was obtained and given to the electrical design technologist in the room. Satisfactory position was confirmed under CT. The patient tolerated the procedure well, and there were no immediate complications. IMPRESSION: Bone marrow aspiration and core needle biopsy with CT guidance of the right iliac bone. Consultation Notes No Data Provided for This Section Discharge Summaries No Data Provided for This Section History and Physicals No Data Provided for This Section Vital Signs Vital Sign Value Date Comments Source Systolic (mm Hg) 144 05/31/2016 [place] Diastolic (mm Hg) 48 05/31/2016 [facility] Respitory Rate 20 05/31/2016 [facility] Temperature Oral (F) 98.4 F 05/31/2016 [place] Weight 65.909 05/31/2016 [facility] BMI Calculated 27.45 05/31/2016 [place] Height 154.94 cm 05/31/2016 [place] Respitory Rate 20 05/02/2016 [place] Systolic (mm Hg) 131 05/02/2016 [place] Diastolic (mm Hg) 58 05/02/2016 [place] Respitory Rate 17 05/02/2016 [facility] Systolic (mm Hg) 131 05/02/2016 [place] Diastolic (mm Hg) 63 05/02/2016 [place] Systolic (mm Hg) 142 05/02/2016 [place] Diastolic (mm Hg) 94 05/02/2016 [place] Respitory Rate 21 05/02/2016 [facility] Heart Rate 62 05/02/2016 [place] Weight 67.864 05/02/2016 [facility] BMI Calculated 28.27 05/02/2016 [place] Height 154.94 cm 04/25/2016 [facility] Encounters Location Location Encounter Encounter Reason Attending ADM DC Status Source Details Type Number For Provider Date Date Visit [facility] Surgery [id number] Shinil 05/02 05/02 Haris Shoemaker [facility] [id number] Tee 05/31 06/01 Haris Cifuentes [facility] [place] Procedures Procedure Code Date Perfomer Comments Source Cataract surgery [id number] 06/05/2012 [place] Removal - procedure [id number] 06/05/2005 [place] Hysterectomy [id number] 06/05/1988 [facility] Appendectomy [id number] 06/05/1979 [facility] Breast implantation [id number] 06/05/1974 [place] Miscellaneous [id number] 06/05/1960 [facility] [place] Breast biopsy and [id number] [facility] related procedures [place] Laparoscopy<sup>1</ [id number] LAPAROSCOPIC MESENTERIC [place] sup> LYMPH NODE BIOPSY, Land PRIMARY UMBILICAL HERNIA REPAIR Assessment and Plan No Data Provided for This Section Plan of Care No Data Provided for This Section Social History Social History Date Source Social History TypeResponse 04/25/2016 [place] Substance Abuse Use: None. Exercise 1 Employment/School Status: Retired. Alcohol 2 Smoking Status Former smoker; Exposure to Tobacco Smoke None; Cigarette Smoking Last 365 Days No; Reg Smoking Cessation Counseling No3 [id number] Family History No Data Provided for This Section Advance Directives No Data Provided for This Section Functional Status No Data Provided for This Section
--- OUTSIDE RECORDS SUMMARY | 2019-02-08 12:52 | XMS REPORT | Encounter Summary ---
:1950 Author Care Team Providers Name Role Phone Elpidio Burr MD Primary Care Provider Unavailable Devon Godwin OTHER [phone] Reason for Visit Follow Up Visit Instructions 1. Low back strain physical therapy referral Medrol (Silvio) 4 mg tablets in a dose pack Discussion Note: None recorded.Patient educational handouts: No information available. Plan of Care Reminders Provider Appointments Return to on or around Elpidio Burr MD Office 10/03/2018 Lab None recorded. Referral Physical 05/31/2018 [facility] Referral [facility] (Physical Therapy) Procedures None recorded. Surgeries None recorded. Imaging None recorded. Medications Name Start Date acyclovir 200 mg capsule TAKE ONE CAPSULE BY MOUTH EVERY 4 HOURS DIRECTED DURING EPISODE amlodipine 5 mg tablet Take 1 tablet every day by oral route. aspirin 325 mg tablet Take 1 tablet twice a day by oral route as directed for 30 days. carisoprodol 350 mg tablet TAKE 1 TABLET BY MOUTH EVERY 8 HOURS. diclofenac 50 mg-misoprostol 200 mcg tablet,immed.and delayed release TAKE 1 TABLET BY MOUTH THREE TIMES DAILY. take for joint pain diethylpropion 25 mg tablet Take 1 tablet 3 times a day by oral route before meals. fenofibrate nanocrystallized 145 mg tablet TAKE 1 TABLET BY MOUTH EVERY DAY fluocinolone 0.01 % shampoo APPLY 15 - 30 MILLILITERS BY TOPICAL ROUTE ONCE DAILY WORK INTO A LATHER AND ALLOW TO REMAIN ON SCALP FOR 5 MINUTES THEN RINSE OFF fluoxetine 20 mg capsule TAKE 1 CAPSULE BY MOUTH EVERY DAY hydroxyzine HCl 25 mg tablet TAKE 1 TABLET BY MOUTH TWICE DAILY NEEDED hydroxyzine HCl 50 mg tablet Take 2 tablets twice a day by oral route as needed. hydroxyzine pamoate 50 mg capsule TAKE 1 CAPSULE BY MOUTH TWICE DAILY isosorbide mononitrate ER 30 mg tablet,extended release 24 hr TAKE 1 TABLET BY MOUTH EVERY DAY DIRECTED lansoprazole 30 mg capsule,delayed release Take 1 capsule every day by oral route. levocetirizine 5 mg tablet Take 1 tablet every day by oral route. lisinopril 20 mg-hydrochlorothiazide 12.5 mg tablet TAKE 1 TABLET BY MOUTH EVERY MORNING AND 1 TABLET AT BEDTIME. Lumigan 0.01 % eye drops Medrol (Silvio) 4 mg tablets in a dose pack Take as directed take as directed for back inflamation omeprazole 40 mg capsule,delayed release Take 1 capsule every day by oral route. phentermine 30 mg capsule Take 1 capsule every day by oral route. Premarin 1.25 mg tablet TAKE 1 TABLET BY MOUTH EVERY DAY Restasis 0.05 % eye drops in a dropperette tramadol 50 mg tablet TAKE 1 TABLET BY MOUTH EVERY 6 HOURS. Vascepa 1 gram capsule Take 2 capsules twice a day by oral route. Xalatan 0.005 % eye drops Zovirax 5 % topical cream APPLY TO THE AFFECTED AREA TWICE DAILY NEEDED FOR OUTBREAK Medications Administered None recorded. Vitals Height Weight BMI Blood Pressure 61 in 185 lbs 35 kg/m2 133/71 mm[Hg] Lab Results None recorded. Allergies Code Code System Name Reaction Severity Status Onset 20230806 RxNorm Tylenol Rash Active Problems Name Status Onset Date Source Chronic Fatigue Syndrome Active 09/09/2016 Trochanteric Bursitis Active 09/09/2016 Bilateral Hip Joint Pain Active 02/16/2017 Acute Sciatica Active 05/04/2017 Low Back Strain Active 05/31/2018 Recurrent Herpes Simplex Active Encounter Malignant Neoplasm of Skin Active Encounter Vitamin D Deficiency Active Encounter Hypertriglyceridemia Active Encounter Body Mass Index 30+ - Obesity Active Encounter Obesity Active Encounter Overweight Active Encounter Blood Coagulation Disorder Active Encounter Mesenteric Lymphadenitis Active Encounter Mixed Anxiety and Depressive Disorder Active Encounter Carpal Tunnel Syndrome Active Encounter Otitis Media Active Acute Otitis Media Active Encounter Essential Hypertension Active Encounter Hypertensive Disorder Active Encounter Hypertensive Heart Disease Active Acute Sinusitis Active Encounter Acute Maxillary Sinusitis Active Has a Sore Throat Active Encounter Upper Respiratory Infection Active Encounter Acute Bronchitis Active Encounter Deviated Nasal Septum Active Encounter Sinusitis Active Encounter Allergic Rhinitis Active Nasal Obstruction Active Encounter Noninfectious Gastroenteritis Active Adhesion of Mesentery Active Encounter Gastrointestinal Hemorrhage Active Gastric Hemorrhage Active Encounter Menopausal and Postmenopausal Disorders Active Encounter Dermatitis Active Encounter Chronic Dermatitis Active Encounter Seborrhea Active Encounter Joint Pain Active Encounter Shoulder Pain Active Encounter Pain in Elbow Active Encounter Pain in Wrist Active Encounter Wrist Joint Pain Active Encounter Low Back Pain Active Encounter Adhesive Capsulitis of Shoulder Active Encounter Bursitis Active Encounter Ganglion of Tendon Sheath Active Encounter Pain in Forearm Active Encounter Fatigue Active Encounter Chest Pain Active Encounter Diarrhea Active Abdominal Pain Active Encounter Right Flank Pain Active Encounter Disorder of Trunk Active Encounter Breast Lump Active Encounter Hypertrophy of Nasal Turbinates Active Encounter Procedures Date Name Performed by Appendectomy Information not available Breast Surgery Information not available Cataract Surgery Information not available Hysterectomy Information not available Other Information not available Vaccine List Vaccine Type influenza, high dose seasonal 04/16/2014 influenza, seasonal, injectable 04/02/2013 pneumococcal polysaccharide PPV23 04/02/2013 Tdap 10/02/20150.5 mL Social History Smoking Status Former Smoker (2 PPD) Past Encounters 05/31/2018 Low Back Strain Elpidio Burr MD: [address] [place] [address], [address], [place] [address], Ph. [phone] History of Present Illness Note: cc low back strain<div>hpi hurt back bending over wrapping packages</div><div>CC overwt</div><div>hpi gaining more wt with each visit</div><div>ros</div><div>gen above< /div><div>cv neg</div><div>resp neg</div><div>m /s above</div>Review of Systems: ROS as noted in the HPI Review of Systems None recorded. Physical Exam Dr. Burr Brief Adult Exam - M/F Reported By: Patient Constitutional: General Appearance: healthy-appearing, well-nourished, well-developed. Level of Distress: moderate distress. Ambulation: limited ambulation Lungs: Auscultation: breath sounds normal, good air movement, CTA except as noted, no wheezing, no rales/crackles, no rhonchi Cardiovascular: Heart Auscultation: RRR Back: Thoracolumbar Appearance: normal curvature; sig tenderness of lower back to palpation
--- OUTSIDE RECORDS SUMMARY | 2019-02-08 12:52 | XMS REPORT | Encounter Summary ---
:1950 Author Care Team Providers Name Role Phone Elpidio Burr MD Primary Care Provider Unavailable Devon Godwin OTHER [phone] Reason for Visit Lab Results; Pain Instructions 1. Low back pain carisoprodol 350 mg tablet tramadol 50 mg tablet 2. Mixed anxiety and depressive disorder 3. Hypertriglyceridemia lipid panel, serum 4. Essential hypertension CBC w/ auto diff CMP, serum or plasma 5. Excessive weight gain hemoglobin A1c, QN, blood TSH, serum or plasma 6. Serum lactate dehydrogenase level elevated ldh, serum or plasma 7. Pain in right foot unlisted imaging order - foot 3 views right 8. Chronic diarrhea of unknown origin culture, stool O&P (ova & parasites), stool C diff screen, stool, reflex PCR wbc, stool Discussion Note: None recorded.Patient educational handouts: No information available. Plan of Care Reminders Provider Appointments Weight 01/09/2019 [facility] 11:00AM MD Juan Return to on or around Elpidio Burr MD Office 02/28/2019 Lab Hemoglobin 12/28/2018 [place] a1C, QN, Blood [facility] (Labs) (Xray) TSH, Serum 12/28/2018 [place] or Plasma [facility] (Labs) (Xray) Lipid Panel, 12/28/2018 [facility] Serum [facility] (Labs) (Xray) CBC W/ Auto 12/28/2018 [facility] Diff [facility] (Labs) (Xray) CMP, Serum 12/28/2018 [place] or Plasma [facility] (Labs) (Xray) Ldh, Serum 12/28/2018 [place] or Plasma [facility] (Labs) (Xray) Culture, 12/28/2018 [facility] Stool [facility] (Labs) (Xray) O&P (Ova & 12/28/2018 [facility] Parasites), Stool [facility] (Labs) (Xray) C Diff 12/28/2018 [place] Screen, Stool, Reflex [facility] (Labs) (Xray) Wbc, Stool 12/28/2018 [facility] (Labs) (Xray) Referral None recorded. Procedures None recorded. Surgeries None recorded. Imaging Unlisted 12/28/2018 [facility] Imaging Order [facility] (Scheduling) Medications Name Start Date acyclovir 200 mg [...] 1 TABLET BY MOUTH THREE TIMES DAILY. diethylpropion 25 mg tablet Take 1 tablet 3 times a day by oral route before meals. fenofibrate nanocrystallized 145 mg tablet TAKE 1 TABLET BY MOUTH EVERY DAY fluocinolone 0.01 % shampoo APPLY 15 - 30 MILLILITERS BY TOPICAL ROUTE ONCE DAILY WORK INTO A LATHER AND ALLOW TO REMAIN ON SCALP FOR 5 MINUTES THEN RINSE OFF fluocinolone 0.01 % topical body oil APPLY TWICE DAILY. fluoxetine 20 mg capsule TAKE 1 CAPSULE BY MOUTH EVERY DAY hydroxyzine pamoate 50 mg capsule TAKE 1 [...] AT BEDTIME. Lumigan 0.01 % eye drops omeprazole 40 mg capsule,delayed release Take 1 [...] Height Weight BMI Blood Pressure 61 in 178 lbs 16 oz 33.8 kg/m2 135/74 mm[Hg] Lab Results None recorded. Allergies Code Code System Name Reaction Severity Status Onset 20230806 RxNorm Tylenol Rash Active Problems Name Status Onset Date Source Chronic Fatigue Syndrome Active 09/09/2016 Trochanteric Bursitis Active 09/09/2016 Bilateral Hip Joint Pain Active 02/16/2017 Acute Sciatica Active 05/04/2017 Low Back Strain Active 05/31/2018 Excessive Weight Gain Active 12/28/2018 Recurrent Herpes Simplex Active Encounter Malignant Neoplasm [...] Information not available Other Information not available 12/28/2018 Unlisted Imaging Order [facility] ( Scheduling) [address] [place], [place] [id number] (Work Place) Vaccine List Vaccine Type influenza, high dose seasonal 04/16/2014 influenza, seasonal, injectable 04/02/2013 pneumococcal polysaccharide PPV23 04/02/2013 Tdap 10/02/20150.5 mL Social History Tobacco Smoking Status Former Smoker (2 PPD) Past Encounters 12/28/2018 Low Back Pain; Mixed Anxiety and Depressive Disorder; Hypertriglyceridemia; Essential Hypertension; Excessive Weight Gain; Serum Lactate Dehydrogenase Level Elevated; Pain in Right Foot; Chronic Diarrhea of Unknown Origin Elpidio Burr MD: [address], [address], [place] [address], Ph. [phone] History of Present Illness Note: CC needs pain meds refilled and muscle relaxant<div>hpi has not abused these meds as were filled 06/2018 needs for muscle spasms and joint pain& lt;/div><div>CC wt gain</div><div>hpi gained sig wt over the last yr has been eating out and not counting calories</div><div> CC diarrhea</div><div>hpi over the last yr she has developed daily diarrhea</div><div>cc rt foot pain</div><div>hpi has noticed pain in rt lateral foot for some time to palpation</div><div&gt ;ros</div><div>gen not feeling well</div><div>cv neg< /div><div>resp neg</div><div>gi diarrhea</div><div >m/s above</div>Review of Systems: ROS as noted in the HPI Review of Systems None recorded. Physical Exam Dr. Burr Brief Adult Exam - M/F Reported By: Patient Constitutional: General Appearance: healthy-appearing, well-nourished, well-developed. Level of Distress: NAD. Ambulation: ambulating normally Neck: Neck: supple, trachea midline, no masses, FROM. Lymph Nodes: no cervical LAD, no supraclavicular LAD Lungs: Auscultation: breath sounds normal, good air movement, CTA except as noted, no wheezing, no rales/crackles, no rhonchi Cardiovascular: Heart Auscultation: RRR, no rubs, no gallops Musculoskeletal: Edema absent; rt 5th metatarsal painful to palpate
--- OUTSIDE RECORDS SUMMARY | 2019-02-08 12:52 | XMS REPORT | Summary of Care ---
:1950 Author Organization [facility] Address [address], [place] [address]- Encounter HQ [facility]) [id number] Date(s): 05/02/16 - 05/02/16 [facility] [address] [place] [address]- Discharge Disposition: Home or Self Care Attending Physician: Yanick Shoemaker DO Referring Physician: Yanick Shoemaker DO Vital Signs Most recent to oldest 1 2 3 [Reference Range]: Height 154.94 cm (04/25/16 11:38 AM) Blood Pressure 131/58 mmHg 131/63 mmHg 142/94 mmHg [90-140/60-90 mmHg] (05/02/16 2:45 PM) (05/02/16 2:15 PM) *HI* (05/02/16 1:45 PM) Respiratory Rate [14-20 20 BRMIN 17 BRMIN 21 BRMIN BRMIN] (05/02/16 2:45 PM) (05/02/16 2:15 PM) *HI* (05/02/16 1:45 PM) Peripheral Pulse Rate 62 bpm [60-100 bpm] (05/02/16 8:45 AM) Weight 67.864 kg (05/02/16 8:23 AM) Body Mass Index 28.27 m2 (05/02/16 8:23 AM) Problem List Condition Effective Dates Status Health Status Informant Angina pectoris, Resolved unspecified(Confirmed) Anxiety(Confirmed) Active Back pain(Confirmed) Active Acid reflux(Confirmed) Active Hypertension(Confirmed) Active Skin cancer(Confirmed) Resolved Neck pain(Confirmed) Active Allergies, Adverse Reactions, Alerts Substance Reaction Severity Status Tylenol rash Active Medications acetaminophen (ANES) Route: IV, Drug form: INJ, ONCE, Stop date: 05/02/16 11:04:00 [employer] Start Date: 05/02/16 Stop Date: 05/02/16 Status: Completedacyclovir 200 mg oral capsule 200 mg=1 cap, PO, TID, 0 Refill(s) Start Date: 04/25/16 Status: OrderedANES acetaminophen 1,000 mg, Route: IVPB, Drug form: INJ, Q6H, Dosing Weight 67.727, kg, PRN Pain Score 1-3, Start date: 05/02/16 12:29:00 [employer], Duration: 1 doses or times, Stop date: Limited # of times Start Date: 05/02/16 Stop Date: 05/02/16 Status: DiscontinuedANES dexamethasone 4 mg, 1 mL, Route: IVP, Drug form: INJ, ONCE, Dosing Weight 67.864, kg, PRN Nausea & Vomiting, Start date: 05/02/16 12:29:00 [employer] Notes: Concentration: 4mg/ml Start Date: 05/02/16 Stop Date: 05/02/16 Status: DiscontinuedANES flumazenil 0.2 mg, 2 mL, Route: IVP, Drug form: INJ, PRN, Dosing Weight 67.864, kg, PRN Benzodiazepine Reversal, Initial dose, Start date: 05/02/16 12:29:00 [employer], Duration: 30 day, Stop date: 06/01/16 12:28:00 [employer] Notes: (Same as: Romazicon) Start Date: 05/02/16 Stop Date: 05/02/16 Status: DiscontinuedANES HYDROmorphone 0.5 mg, 0.25 mL, Route: IVP, Drug form: INJ, Q5Min, Dosing Weight 67.864, kg, PRN Pain Score 7-10, Start date: 05/02/16 12:29:00 [employer], Duration: 4 doses or times, Stop date: Limited # of times Notes: Same as Dilaudid Start Date: 05/02/16 Stop Date: 05/02/16 Status: DiscontinuedANES ketOROLAC 30 mg, 1 mL, Route: IVP, Drug form: INJ, ONCE, Dosing Weight 67.864, kg, Start date: 05/02/16 12:29:00 [employer], Duration: 1 doses or times, Stop date: 05/02/16 12: 29:00 [employer] Notes: (Same as:Toradol) IV bolus must be given >15 seconds. Give IM administration slowly and deeply into the muscle.Not for use > 4 days MEDICATION WASTE Product Size: 30 mgProduct Wasted: ___ mg Start Date: 05/02/16 Stop Date: 05/02/16 Status: CompletedANES labetalol 10 mg, 2 mL, Route: IVP, Drug form: INJ, Q5Min, Dosing Weight 67.864, kg, PRN Elevated BP, Start date: 05/02/16 12:29:00 [employer], Duration: 5 doses or times, Stop date: Limited # of times Notes: (Same as: Normodyne, Trandate)Push over 2 minutes Give bolus over 2-3 minutes. Start Date: 05/02/16 Stop Date: 05/02/16 Status: DiscontinuedANES meperidine 12.5 mg, 0.5 mL, Route: IVP, Drug form: INJ, Q30Min, Dosing Weight 67.864, kg, PRN Other -See Comment, For shivering, Start date: 05/02/16 12:29:00 [employer], Duration: 2 doses or times, Stop date: Limited #of times Notes: (Same as: Demerol) "Use Precaution in Elderly, Seizure disorders, and Renal impairment" Start Date: 05/02/16 Stop Date: 05/02/16 Status: DiscontinuedANES naloxone 0.4 mg, 1 mL, Route: IVP, Drug form: INJ, Q2MIN, Dosing Weight 67.864, kg, PRN Narcotic Reversal, Start date: 05/02/16 12:29:00 [employer], Duration: 8 doses or times , Stop date: Limited # of times Notes: Same as Narcan Start Date: 05/02/16 Stop Date: 05/02/16 Status: DiscontinuedANES ondansetron 4 mg, 2 mL, Route: IVP, Drug form: INJ, ONCE, Dosing Weight 67.864, kg, PRN Nausea & Vomiting, Start date: 05/02/16 12:29:00 [employer] Notes: (Same as: Zofran) MEDICATION WASTE Product Size: 4 mgProduct Wasted: ___ mg Start Date: 05/02/16 Stop Date: 05/02/16 Status: DiscontinuedANES oxyCODONE 2.5 mg, 2.5 mL, Route: PO, Drug form: LIQ, Q4H, Dosing Weight 67.864, kg, PRN Pain Score 4-6, Start date: 05/02/16 12:29:00 [employer], Duration: 30 day, Stop date: 06/01/16 12:28:00 [employer] Notes: (Same as: 'Roxicodone) Start Date: 05/02/16 Stop Date: 05/02/16 Status: Discontinuedaspirin buffered 325 mg oral tablet 325 mg=1 tab, PO, BID, 0 Refill(s) Start Date: 04/25/16 Status: Orderedbiotin 1000 mcg oral tablet 2,000 microgram=2 tab, PO, Daily, # 30 tab, 0 Refill(s) Start Date: 04/25/16 Status: Orderedcarisoprodol 350 mg oral tablet 350 mg=1 tab, PO, QID, 0 Refill(s) Start Date: 04/25/16 Status: OrderedcefOXitin (ANES) Route: IV, Drug form: INJ, ONCE, Stop date: 05/02/16 10:54:00 [employer] Start Date: 05/02/16 Stop Date: 05/02/16 Status: CompletedCeleBREX 400 mg, 2 cap, Route: PO, Drug form: CAP, ONCALL, Start date: 05/02/16 6:00:00 [employer], Duration: 1 doses or times, Stop date: 05/02/16 23:59:00 [employer] Notes: NSAID. Please check indication. Not for seizure. (Same As: CeleBREX) Start Date: 05/02/16 Stop Date: 05/02/16 Status: CompletedePHEDrine (ANES) Route: IV, Drug form: INJ, ONCE, Stop date: 05/02/16 11:14:00 [employer] Start Date: 05/02/16 Stop Date: 05/02/16 Status: Completedfamotidine (ANES) Route: IV, Drug form: INJ, ONCE, Stop date: 05/02/16 11:04:00 [employer] Start Date: 05/02/16 Stop Date: 05/02/16 Status: Completedfenofibrate 145 mg oral tablet 145 mg=1 tab, PO, Daily, 0 Refill(s) Start Date: 04/25/16 Status: OrderedfentaNYL (ANES) Route: IV, Drug form: INJ, ONCE, Stop date: 05/02/16 10:59:00 [employer] Start Date: 05/02/16 Stop Date: 05/02/16 Status: CompletedFish Oil 1200 mg oral capsule =2 tab, PO, PRN, 0 Refill(s) Start Date: 04/25/16 Status: OrderedFLUoxetine 20 mg oral tablet 20 mg=1 tab, PO, Daily, 0 Refill(s) Start Date: 04/25/16 Status: Orderedglycopyrrolate (ANES) Route: IV, Drug form: INJ, ONCE, Stop date: 05/02/16 12:36:00 [employer] Start Date: 05/02/16 Stop Date: 05/02/16 Status: Completedhydrochlorothiazide-lisinopril 12.5 mg-20 mg oral tablet 1 tab, PO, Daily, 0 Refill(s) Start Date: 04/25/16 Status: Orderedisosorbide dinitrate 30 mg oral tablet 30 mg=1 tab, PO, Daily, 0 Refill(s) Start Date: 04/25/16 Status: OrderedLactated Ringers 1,000 mL 1,000 mL, Rate: 25 ml/hr, Infuse over: 40 hr, Route: IV, Dosing Weight 67.727 kg , Total Volume: 1,000, Start date: 05/02/16 7:59:00 [employer], Duration: 30 day, Stop date: 06/01/16 7:58:00 [employer] Start Date: 05/02/16 Stop Date: 05/02/16 Status: Discontinuedlidocaine (ANES) Route: IV, Drug form: INJ, ONCE, Stop date: 05/02/16 10:59:00 [employer] Start Date: 05/02/16 Stop Date: 05/02/16 Status: CompletedLovenox 40 mg, 0.4 mL, Route: SUB-Q, Drug form: INJ, ONCALL, Start date: 05/02/16 6:00: 00 [employer], Duration: 1 doses or times, Stop date: 05/02/16 23:59:00 [employer] Notes: (Same as: Lovenox) Start Date: 05/02/16 Stop Date: 05/02/16 Status: CompletedLR 1000 mL INJ (ANES) Route: IV, Total Volume: 1,000, Start date: 05/02/16 10:19:00 [employer], Stop date: 11:19:00 [employer] Start Date: 05/02/16 Stop Date: 05/02/16 Status: CompletedMefoxin + sodium chloride 0.9% INJ 100 mL 2 gm, Route: IVPB, ONCALL, Start date: 05/02/16 6:00:00 [employer], Duration: 1 doses or times, Stop date: 05/02/16 23:59:00 [employer] Notes: (Same As: Mefoxin) MEDICATION WASTE Product Size: 2000 mgProduct Wasted: ___ mg Start Date: 05/02/16 Stop Date: 05/02/16 Status: Completedmetoclopramide (ANES) Route: IV, Drug form: INJ, ONCE, Stop date: 05/02/16 11:04:00 [employer] Start Date: 05/02/16 Stop Date: 05/02/16 Status: Completedmidazolam (ANES) Route: IV, Drug form: SOLN, ONCE, Stop date: 05/02/16 10:59:00 [employer] Start Date: 05/02/16 Stop Date: 05/02/16 Status: CompletedMiraLax oral powder for reconstitution 17 gm, PO, Daily, PRN Constipation, X 31 day, # 527 gm, 0 Refill(s) Start Date: 05/02/16 Stop Date: 06/02/16 Status: Orderedneostigmine (ANES) Route: IV, Drug form: INJ, ONCE, Stop date: 05/02/16 12:36:00 [employer] Start Date: 05/02/16 Stop Date: 05/02/16 Status: CompletedNeurontin 300 mg, 1 cap, Route: PO, Drug form: CAP, ONCE, Start date: 05/02/16 9:30:00 [employer] , Stop date: 05/02/16 9:30:00 [employer] Notes: (Same as: Neurontin) Start Date: 05/02/16 Stop Date: 05/02/16 Status: CompletedNeurontin 300 mg, 1 cap, Route: PO, Drug form: CAP, ONCE, Start date: 05/02/16 6:00:00 [employer] , Stop date: 05/02/16 6:00:00 [employer] Notes: (Same as: Neurontin) Start Date: 05/02/16 Stop Date: 05/02/16 Status: CompletedNiacin SR 500 mg oral capsule, extended release 500 mg=1 cap, PO, Bedtime, 0 Refill(s) Start Date: 04/25/16 Status: Orderedondansetron (ANES) Route: IV, Drug form: INJ, ONCE, Stop date: 05/02/16 11:54:00 [employer] Start Date: 05/02/16 Stop Date: 05/02/16 Status: CompletedPremarin 1.25 mg oral tablet 1.25 mg=1 tab, PO, Daily, 0 Refill(s) Start Date: 04/25/16 Status: OrderedPrevacid 30 mg oral delayed release capsule 30 mg=1 cap, PO, Daily, 0 Refill(s) Start Date: 04/25/16 Status: Orderedpropofol (ANES) Route: IV, Drug form: INJ, ONCE, Stop date: 05/02/16 10:59:00 [employer] Start Date: 05/02/16 Stop Date: 05/02/16 Status: Completedrocuronium (ANES) Route: IV, Drug form: INJ, ONCE, Stop date: 05/02/16 11:04:00 [employer] Start Date: 05/02/16 Stop Date: 05/02/16 Status: CompletedRoxicodone 5 mg, Route: PO, ONCE, Dosing Weight 67.864, kg, Start date: 05/02/16 14:33:00 [employer], Stop date: 05/02/16 14:33:00 [employer] Start Date: 05/02/16 Stop Date: 05/02/16 Status: Completedsuccinylcholine (ANES) Route: IV, Drug form: INJ, ONCE, Stop date: 05/02/16 10:59:00 [employer] Start Date: 05/02/16 Stop Date: 05/02/16 Status: Completedtramadol 50 mg oral tablet 50 mg=1 tab, PO, Q6H, PRN Pain, X 7 day, # 28 tab, 0 Refill(s) Start Date: 05/02/16 Stop Date: 05/09/16 Status: OrderedXalatan ophthalmic 0.005% solution 1 drp, QPM, 0 Refill(s) Start Date: 04/25/16 Status: Ordered Results ELECTROLYTES Most recent to oldest [Reference Range]: 1 Sodium Lvl [135-145 mEq/L] 137 mEq/L (04/25/16 11:44 AM) Potassium Lvl [3.5-5.1 mEq/L] 4.0 mEq/L (04/25/16 11:44 AM) Chloride Lvl [95-109 mEq/L] 101 mEq/L (04/25/16 11:44 AM) CO2 [24-32 mEq/L] 27 mEq/L (04/25/16 11:44 AM) AGAP [10.0-20.0 mEq/L] 13.0 mEq/L (04/25/16 11:44 AM) CHEM PANEL Most recent to oldest [Reference Range]: 1 Creatinine Lvl [0.50-1.40 mg/dL] 0.60 mg/dL (04/25/16 11:44 AM) eGFR 97 mL/min/1.73m2 1 *NA* (04/25/16 11:44 AM) BUN [7-22 mg/dL] 16 mg/dL (04/25/16 11:44 AM) Glucose Lvl [70-99 mg/dL] 97 mg/dL (04/25/16 11:44 AM) Calcium Lvl [8.5-10.5 mg/dL] 9.0 mg/dL (04/25/16 11:44 AM) 1Result Comment: The eGFR is calculated using the CKD-EPI formula. In most young , healthy individualsthe eGFR will be >90 mL/min/1.73m2. The eGFR declines with age. An eGFR of 60-89 may be normal in some populations, particularly the elderly, for whom the CKD-EPI formula has not been extensively validated. Use of the eGFR is not recommended in the following populations: Individuals with unstable creatinine concentrations, including patients and those with serious co-morbid conditions. Patients with extremes in muscle mass or diet. The data above are obtained from the National Kidney Disease Education Program ( NKDEP) which additionally recommends that when the eGFR is used in patients with extremes of body mass index for purposesof drug dosing, the eGFR should be multiplied by the estimated BMI.HEMATOLOGY Most recent to oldest [Reference Range]: 1 WBC [3.7-10.4 K/CMM] 8.8 K/CMM (04/25/16 11:44 AM) RBC [4.20-5.40 M/CMM] 4.47 M/CMM (04/25/16 11:44 AM) Hgb [12.0-16.0 g/dL] 12.6 g/dL (04/25/16 11:44 AM) Hct [36.0-48.0 %] 38.0 % (04/25/16 11:44 AM) MCV [80.0-98.0 fL] 85.0 fL (04/25/16 11:44 AM) MCH [27.0-31.0 pg] 28.2 pg (04/25/16 11:44 AM) MCHC [32.0-36.0 g/dL] 33.2 g/dL (04/25/16 11:44 AM) RDW [11.5-14.5 %] 15.2 % *HI* (04/25/16 11:44 AM) Platelet [133-450 K/CMM] 323 K/CMM (04/25/16 11:44 AM) MPV [7.4-10.4 fL] 8.6 fL (04/25/16 11:44 AM) Segs [45.0-75.0 %] 58.2 % (04/25/16 11:44 AM) Lymphocytes [20.0-40.0 %] 33.2 % (04/25/16 11:44 AM) Monocytes [2.0-12.0 %] 6.7 % (04/25/16 11:44 AM) Eosinophils [0.0-4.0 %] 1.3 % (04/25/16 11:44 AM) Basophils [0.0-1.0 %] 0.6 % (04/25/16 11:44 AM) Segs-Bands # [1.5-8.1 K/CMM] 5.1 K/CMM (04/25/16 11:44 AM) Lymphocytes # [1.0-5.5 K/CMM] 2.9 K/CMM (04/25/16 11:44 AM) Monocytes # [0.0-0.8 K/CMM] 0.6 K/CMM (04/25/16 11:44 AM) Eosinophils # [0.0-0.5 K/CMM] 0.1 K/CMM (04/25/16 11:44 AM) Basophils # [0.0-0.2 K/CMM] 0.1 K/CMM (04/25/16 11:44 AM) Immunizations No data available for this section Procedures Procedure Date Related Diagnosis Body Site Cataract surgery 2012 Removal - procedure 2005 Hysterectomy 1988 Appendectomy 1979 Breast implantation 1974 Miscellaneous operations 1960 Breast biopsy and related procedures Laparoscopy1 1LAPAROSCOPIC MESENTERIC LYMPH NODE BIOPSY, PRIMARY UMBILICAL HERNIA REPAIR Social History Social History Type Response Substance Abuse Use: None. Exercise 1 Employment/School Status: Retired. Alcohol 2 Smoking Status Former smoker; Exposure to Tobacco Smoke None; Cigarette Smoking Last 365 Days No; Reg Smoking Cessation Counseling No3 [id number] 1979 Assessment and Plan No data available for this section
--- OUTSIDE RECORDS SUMMARY | 2019-02-08 12:52 | XMS REPORT | Encounter Summary ---
:1950 Author Care Team Providers Name Role Phone Elpidio Burr MD Primary Care Provider Unavailable Devon Godwin OTHER [phone] Reason for Visit Lab Results; Pain Instructions 1. Low back pain carisoprodol 350 mg tablet tramadol 50 mg tablet 2. Mixed anxiety and depressive disorder 3. Hypertriglyceridemia lipid panel, serum 4. Essential hypertension CBC w/ auto diff CMP, serum or plasma 5. Excessive weight gain hemoglobin A1c, QN, blood TSH, serum or plasma 6. Serum lactate dehydrogenase level elevated ldh, serum or plasma Discussion Note: None recorded.Patient educational handouts: No information available. Plan of Care Reminders Provider Appointments Weight 01/09/2019 Dany Whalen Management 11:00AM MD Juan Return to on or around Elpidio Burr MD Office 02/28/2019 Lab Hemoglobin 12/28/2018 [place] a1C, QN, Blood [facility] (Labs) (Xray) TSH, Serum 12/28/2018 [facility] (Labs) (Xray) Lipid Panel, 12/28/2018 [facility] (Labs) (Xray) CBC W/ Auto 12/28/2018 [place] Diff [facility] (Labs) (Xray) CMP, Serum 12/28/2018 [place] or Plasma [facility] (Labs) (Xray) Ldh, Serum 12/28/2018 [facility] (Labs) (Xray) Referral None recorded. Procedures None [...] Excessive Weight Gain; Serum Lactate Dehydrogenase Level Elevated Elpidio Burr MD: [address] [place] [address], [address], [place] [address], Ph. History of Present Illness Note: CC needs pain meds refilled and muscle relaxant<div>hpi has not abused these meds as were filled 06/2018 needs for muscle spasms and joint pain& lt;/div><div>CC wt gain</div><div>hpi gained sig wt over the last yr has been eating out and not counting calories</div><div> CC diarrhea</div><div>hpi over the last yr she has developed daily diarrhea</div><div>ros</div><div>gen not feeling well&lt ;/div><div>cv neg</div><div>resp neg</div><div> gi diarrhea</div><div>m/s above</div>Review of Systems: ROS as noted in [...] RRR, no rubs, no gallops Musculoskeletal: Edema absent
--- OUTSIDE RECORDS SUMMARY | 2019-02-08 12:52 | XMS REPORT | Summary of Care ---
:1950 Author Organization [facility] Address [address], [place] [address]- Encounter HQ Juan_m[place]([facility]) [id number] Date(s): 05/31/16 - 05/31/16 [facility] [address] [place] [address]- Discharge Disposition: Home or Self Care Attending Physician: Tee Cifuentes MD Admitting Physician: Tee Cifuentes MD Referring Physician: Tee Cifuentes MD Vital Signs Most recent to oldest [Reference Range]: 1 Height 154.94 cm (05/31/16 7:20 AM) Temperature Oral [96.4-99.1 DegF] 98.4 DegF (05/31/16 8:00 AM) Blood Pressure [90-140/60-90 mmHg] 144/48 mmHg *HI* (05/31/16 8:00 AM) Respiratory Rate [14-20 BRMIN] 20 BRMIN (05/31/16 8:00 AM) Weight 65.909 kg (05/31/16 7:20 AM) Body Mass Index 27.45 m2 (05/31/16 7:20 AM) Problem List Condition Effective Dates Status Health Status Informant Angina pectoris, Resolved unspecified(Confirmed) Anxiety(Confirmed) Active Back pain(Confirmed) Active Acid reflux(Confirmed) Active Hypertension(Confirmed) Active Skin cancer(Confirmed) Resolved Neck pain(Confirmed) Active Allergies, Adverse Reactions, Alerts Substance Reaction Severity Status Tylenol rash Active Medications No data available for this section Results HEMATOLOGY Most recent to oldest [Reference Range]: 1 2 WBC [3.7-10.4 K/CMM] 8.5 K/CMM (05/31/16 8:00 AM) RBC [4.20-5.40 M/CMM] 4.72 M/CMM (05/31/16 8:00 AM) Hgb [12.0-16.0 g/dL] 13.3 g/dL (05/31/16 8:00 AM) Hct [36.0-48.0 %] 40.8 % (05/31/16 8:00 AM) MCV [80.0-98.0 fL] 86.5 fL (05/31/16 8:00 AM) MCH [27.0-31.0 pg] 28.2 pg (05/31/16 8:00 AM) MCHC [32.0-36.0 g/dL] 32.7 g/dL (05/31/16 8:00 AM) RDW [11.5-14.5 %] 15.7 % *HI* (05/31/16 8:00 AM) Platelet [133-450 K/CMM] 268 K/CMM 276 K/CMM (05/31/16 8:00 AM) (05/31/16 8:00 AM) MPV [7.4-10.4 fL] 9.6 fL (05/31/16 8:00 AM) Segs [45.0-75.0 %] 57.7 % (05/31/16 8:00 AM) Lymphocytes [20.0-40.0 %] 33.5 % (05/31/16 8:00 AM) Monocytes [2.0-12.0 %] 5.5 % (05/31/16 8:00 AM) Eosinophils [0.0-4.0 %] 2.9 % (05/31/16 8:00 AM) Basophils [0.0-1.0 %] 0.4 % (05/31/16 8:00 AM) Segs-Bands # [1.5-8.1 K/CMM] 4.9 K/CMM (05/31/16 8:00 AM) Lymphocytes # [1.0-5.5 K/CMM] 2.9 K/CMM (05/31/16 8:00 AM) Monocytes # [0.0-0.8 K/CMM] 0.5 K/CMM (05/31/16 8:00 AM) Eosinophils # [0.0-0.5 K/CMM] 0.2 K/CMM (05/31/16 8:00 AM) Basophils # [0.0-0.2 K/CMM] 0.0 K/CMM (05/31/16 8:00 AM) Large Plt Slight *NA* (05/31/16 8:00 AM) PT [12.0-14.7 seconds] 13.5 seconds (05/31/16 8:00 AM) INR [0.85-1.17] 1.01 (05/31/16 8:00 AM) PTT [22.9-35.8 seconds] 33.2 seconds (05/31/16 8:00 AM) Immunizations No data available for this [...] Days No; Reg Smoking Cessation Counseling No3 [id number] 1978 Assessment and Plan No data available for this section
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
[2019-02-08 16:17] VITALS: BP 143/67; TEMP 98.4; O2SAT 96
== END 2019-02-08 15:35 | disposition home or self-care (01) ==
LOC: ER 12:49
DX: S00.90XA Unspecified superficial injury of unspecified part of head, initial encounter (principal); M54.13 Radiculopathy, cervicothoracic region; V43.63XA Car passenger injured in collision with pick-up truck in traffic accident, initial encounter; Y93.89 Activity, other specified; Y92.488 Other paved roadways as the place of occurrence of the external cause
CPT/HCPCS: 70450; 72125; 99284

== ENCOUNTER 2019-02-22 06:26 | Emergency (ER) | payer BC, SELFPAY ==
--- OUTSIDE RECORDS SUMMARY | 2019-02-22 06:29 | XMS REPORT | Continuity of Care Document ---
:1950 Author Organization [facility] Team Providers Name Role Phone Dedicated Devices Information [employer] Unavailable Unavailable Problems Problem Status Onset Classification Date Comments Source Date Reported C83.3 Active [place] MESENTERIC LYMPH Active [place] NODE-I88.0 6 [place] Angina pectoris, Resolved Problem 06/03/2016 [place] unspecified [place] Anxiety Active Problem 06/03/2016 [place] Back pain Active Problem 06/03/2016 [place] Acid reflux Active Problem 06/03/2016 [place] Hypertension Active Problem 06/03/2016 [place] Skin cancer Resolved Problem 06/03/2016 [place] Neck pain Active Problem 06/03/2016 [place] Medications Medication Details Route Status Patient Ordering Order Source Instructions Provider Date Roxicodone 5 mg, Route: Inactive PO, ONCE, 2015 [place] Dosing Weight [place] 67.864, kg, Start date: 05/02/16 14:33:00 [employer], Stop date: 05/02/16 14:33:00 [employer] glycopyrrolate Route: IV, Drug Inactive (ANES) form: INJ, 2015 [place] ONCE, Stop [place] date: 05/02/16 12:36:00 [employer] neostigmine (ANES) Route: IV, Drug Inactive form: INJ, 2015 [place] ONCE, Stop [place] date: 05/02/16 12:36:00 [employer] Meperidine 12.5 mg, 0.5 Inactive mL, Route: IVP, 2015 [place] Drug form: INJ, [place] Q30Min, Dosing Weight 67.864, kg, PRN Other -See Comment, For shivering, Start date: 05/02/16 12:29:00 [employer], Duration: 2 doses or times, Stop date: [...] Weight 67.864, kg, Start date: 05/02/16 12:29:00 [employer], Duration: 1 doses or times, Stop date: [...] Pain Score 4-6, Start date: 05/02/16 12:29:00 [employer], Duration: 30 day, Stop date: 06/01/16 12:28:00 CSTNotes: (Same as: 'Roxicodone) Acetaminophen 1,000 mg, Inactive Route: IVPB2015 [place] Drug form: INJ, [place] Q6H, Dosing Weight 67.727, kg, PRN Pain Score 1-3, Start date: 05/02/16 12:29:00 [employer]KER, Duration: 1 doses or times, Stop date: Limited # of times Labetalol 10 mg, 2 mL, Inactive Route: IVP, 2015 [place] Drug form: INJ, [place] Q5Min, Dosing Weight 67.864, kg, PRN Elevated BP, Start date: 05/02/16 12:29:00 [employer], Duration: 5 doses or times, Stop date: Limited # of timesNotes: (Same as: Normodyne, Trandate) Push over 2 minutes Give bolus over 2-3 minutes. Naloxone 0.4 mg, 1 mL, Inactive Route: IVP, 2015 [place] Drug form: INJ, [place] Q2MIN, Dosing Weight 67.864, kg, PRN Narcotic Reversal, Start date: 05/02/16 12:29:00 [employer], Duration: 8 doses or times, Stop date: Limited # of timesNotes: Same as Narcan Flumazenil 0.2 mg, 2 mL, Inactive Route: IVP2015 [place] Drug form: INJ, [place] PRN, Dosing Weight 67.864, kg, PRN Benzodiazepine Reversal, Initial dose, Start date: 05/02/16 12:29:00 [employer]ER, Duration: 30 day, Stop date: 06/01/16 12:28:00 CSTNotes: (Same as: Romazicon) Hydromorphone 0.5 mg, 0.25 Inactive mL, Route: IVP2015 [place] Drug form: INJ, [place] Q5Min, Dosing Weight 67.864, kg, PRN Pain Score 7-10, Start date: 05/02/16 12:29:00 [employer]KER, Duration: 4 doses or times, Stop date: [...] [place] ONCE, Stop [place] date: 05/02/16 11:54:00 [employer] ePHEDrine (ANES) Route: IV, Drug Inactive form: INJ, 2015 [place] ONCE, Stop [place] date: 05/02/16 11:14:00 [employer] metoclopramide Route: IV, Drug Inactive (ANES) form: INJ, 2015 [place] ONCE, Stop [place] date: 05/02/16 11:04:00 [employer] famotidine (ANES) Route: IV, Drug Inactive form: INJ, 2015 [place] ONCE, Stop [place] date: 05/02/16 11:04:00 [employer] rocuronium (ANES) Route: IV, Drug Inactive form: INJ, 2015 [place] ONCE, Stop [place] date: 05/02/16 11:04:00 [employer] acetaminophen (ANES) Route: IV, Drug Inactive form: INJ, 2015 [place] ONCE, Stop [place] date: 05/02/16 11:04:00 [employer] propofol (ANES) Route: IV, Drug Inactive form: INJ, 2015 [place] ONCE, Stop [place] date: 05/02/16 10:59:00 [employer] succinylcholine Route: IV, Drug Inactive (ANES) form: INJ, 2015 [place] ONCE, Stop [place] date: 05/02/16 10:59:00 [employer] midazolam (ANES) Route: IV, Drug Inactive form: SOLN, 2015 [place] ONCE, Stop [place] date: 05/02/16 10:59:00 [employer]ER fentaNYL (ANES) Route: IV, Drug Inactive form: INJ, 2015 [place] ONCE, Stop [place] date: 05/02/16 10:59:00 [employer]KER lidocaine (ANES) Route: IV, Drug Inactive form: INJ, 2015 [place] ONCE, Stop [place] date: 05/02/16 10:59:00 [employer]KER cefOXitin (ANES) Route: IV, Drug Inactive form: INJ, 2015 [place] ONCE, Stop [place] date: 05/02/16 10:54:00 PATTERN AND CH[employer] MAKER LR 1000 mL INJ Route: IV, Inactive (ANES) Total Volume: 2015 [place] 1,000, Start [place] date: 05/02/16 10:19:00 PAT[employer] AND CH[employer]KER, Stop date: 05/02/16 11:19:00 [employer]KER Neurontin 300 mg, 1 cap, Inactive Route: PO, Drug 2015 [place] form: CAP, [place] ONCE, Start date: 05/02/16 9:30:00 PAT[employer] AND [employer]KER, Stop date: 05/02/16 9:30:00 CSTNotes: (Same as: Neurontin) Calcium Chloride 1,000 mL, Rate: Inactive 0.0014 MEQ/ML / 25 ml/hr, 2015 [place] Potassium Chloride Infuse over: 40 [place] 0.004 MEQ/ML / hr, Route: IV, Sodium Chloride Dosing Weight 0.103 MEQ/ML / 67.727 kg, Sodium Lactate 0.028 Total Volume: MEQ/ML Injectable 1,000, Start Solution date: 05/02/16 7:59:00 [employer]KER, Duration: 30 day, Stop date: 06/01/16 7:58:00 [employer]KER Lovenox 40 mg, 0.4 mL, Inactive Route: SUB-Q, 2015 [place] Drug form: INJ, [place] ONCALL, Start date: 05/02/16 6:00:00 [employer]KER, Duration: 1 doses or times, Stop date: 05/02/16 23:59:00 CSTNotes: (Same as: Lovenox) CeleBREX 400 mg, 2 cap, Inactive Route: PO, Drug 2015 [place] form: CAP, [place] ONCALL, Start date: 05/02/16 6:00:00 PAT[employer]KER, Duration: 1 doses or times, Stop date: 05/02/16 23:59:00 CSTNotes: NSAID. Please check indication. Not for seizure. (Same As: CeleBREX) Mefoxin + sodium 2 gm, Route: Inactive chloride 0.9% INJ IVPB, ONCALL, 2015 [place] 100 mL Start date: Tobin 05/02/16 6:00:00 PATTERN AND CH[employer] MAKER, Duration: 1 doses or times, Stop date: 05/02/16 23:59:00 CSTNotes: (Same As: Mefoxin) MEDICATION WASTE Product Size: 2000 mg Product Wasted: ___ mg Neurontin 300 mg, 1 cap, Inactive Route: PO, Drug 2015 [place] form: CAP, [place] ONCE, Start date: 05/02/16 6:00:00 PATTERN AND CH[employer]KER, Stop date: 05/02/16 6:00:00 CSTNotes: (Same as: [...] [place] Estrogens, 1.25 mg=1 tab, Active Conjugated (HALFWAY) PO, Daily, 0 2015 [place] 1.25 MG [...] Reported Tylenol Assertion rash Drug Active allergy [place] Immunizations No Data Provided for This Section Results Order Name Results Value Reference Date Interpretation Comments Source Range HEMATOLOGY Eosinophils # 0.2 0.0 - 0.5 12/27/ MH 2016 [place] HEMATOLOGY Monocytes 5.5 2.0 - 12.0 2015 [place] HEMATOLOGY Segs 57.7 45.0 - 75.0 2015 [place] HEMATOLOGY Lymphocytes 33.5 20.0 - 40.0 2015 [place] HEMATOLOGY Eosinophils 2.9 0.0 - 4.0 2015 [place] HEMATOLOGY Segs-Bands # 4.9 1.5 - 8.1 2015 [place] HEMATOLOGY Lymphocytes # 2.9 1.0 - 5.5 2015 [place] HEMATOLOGY Monocytes # 0.5 0.0 - 0.8 2015 [place] HEMATOLOGY Basophils 0.4 0.0 - 1.0 2015 [place] HEMATOLOGY Basophils # 0.0 0.0 - 0.2 2015 [place] HEMATOLOGY Large Plt Slight 2015 [place] HEMATOLOGY Hgb 13.3 12.0 - 16.0 2015 [place] HEMATOLOGY WBC 8.5 3.7 - 10.4 2015 [place] HEMATOLOGY RBC 4.72 4.20 - 5.40 2015 [place] HEMATOLOGY MCHC 32.7 32.0 - 36.0 2015 [place] HEMATOLOGY MCH 28.2 27.0 - 31.0 2015 [place] HEMATOLOGY RDW 15.7 11.5 - 14.5 2015 [place] HEMATOLOGY MCV 86.5 80.0 - 98.0 2015 [place] HEMATOLOGY Hct 40.8 36.0 - 48.0 2015 [place] HEMATOLOGY MPV 9.6 7.4 - 10.4 2015 [place] HEMATOLOGY Platelet 268 133 - 450 2015 [place] HEMATOLOGY PT 13.5 12.0 - 14.7 2015 [place] HEMATOLOGY INR 1.01 0.85 - 1.17 2015 [place] HEMATOLOGY PTT 33.2 22.9 - 35.8 2015 [place] HEMATOLOGY Platelet 276 133 - 450 2015 [place] CHEM PANEL eGFR 97 2015 Comment: The [...] Sodium Lvl 137 135 - 145 2015 [place] CHEM PANEL BUN 16 7 - 22 2015 [place] CHEM PANEL CO2 27 24 - 32 2015 [place] CHEM PANEL Creatinine 0.60 0.50 - 1.40 Lvl 2015 [place] CHEM PANEL Glucose Lvl 97 70 - 99 2015 [place] CHEM PANEL Potassium Lvl 4.0 3.5 - 5.1 2015 [place] CHEM PANEL Calcium Lvl 9.0 8.5 - 10.5 2015 [place] CHEM PANEL Chloride Lvl 101 95 - 109 2015 [place] CHEM PANEL AGAP 13.0 10.0 - 20.0 2015 [place] HEMATOLOGY MPV 8.6 7.4 - 10.4 2015 [place] HEMATOLOGY Platelet 323 133 - 450 2015 [place] HEMATOLOGY MCHC 33.2 32.0 - 36.0 2015 [place] HEMATOLOGY MCH 28.2 27.0 - 31.0 2015 [place] HEMATOLOGY RDW 15.2 11.5 - 14.5 2015 [place] HEMATOLOGY Hgb 12.6 12.0 - 16.0 2015 [place] HEMATOLOGY Hct 38.0 36.0 - 48.0 2015 [place] HEMATOLOGY MCV 85.0 80.0 - 98.0 2015 [place] HEMATOLOGY WBC 8.8 3.7 - 10.4 2015 [place] HEMATOLOGY RBC 4.47 4.20 - 5.40 2015 [place] HEMATOLOGY Basophils # 0.1 0.0 - 0.2 2015 [place] HEMATOLOGY Eosinophils # 0.1 0.0 - 0.5 2015 [place] HEMATOLOGY Eosinophils 1.3 0.0 - 4.0 2015 [place] HEMATOLOGY Monocytes 6.7 2.0 - 12.0 2015 [place] HEMATOLOGY Lymphocytes # 2.9 1.0 - 5.5 2015 [place] HEMATOLOGY Monocytes # 0.6 0.0 - 0.8 2015 [place] HEMATOLOGY Lymphocytes 33.2 20.0 - 40.0 2015 [place] HEMATOLOGY Segs-Bands # 5.1 1.5 - 8.1 2015 [place] HEMATOLOGY Basophils 0.6 0.0 - 1.0 2015 [place] HEMATOLOGY Segs 58.2 45.0 - 75.0 2015 [place] Pathology Reports No Data Provided for This Section Diagnostic Reports Report Value Date Source Bone Marrow Aspiration PROCEDURES PERFORMED: 05/31/2016 [facility] CT 1. Bone Marrow aspiration and [...] w as aspirated and given to the water filtration technician for preparation. An 8 gauge bone biopsy needle was then advanced under CT guidance into the right iliac bone and a core sample was obtained and given to the chief nuclear medicine technologist in the room. Satisfactory position was [...] Comments Source Systolic (mm Hg) 144 05/31/2016 [place] Diastolic (mm Hg) 48 05/31/2016 [place] Respitory Rate 20 05/31/2016 [place] Temperature Oral (F) 98.4 F 05/31/2016 [place] Weight 65.909 05/31/2016 [place] BMI Calculated 27.45 05/31/2016 [place] Height 154.94 cm 05/31/2016 [place] Respitory Rate 20 05/02/2016 [place] Systolic (mm Hg) 131 05/02/2016 [place] Diastolic (mm Hg) 58 05/02/2016 [place] Respitory Rate 17 05/02/2016 [place] Systolic (mm Hg) 131 05/02/2016 [place] Diastolic (mm Hg) 63 05/02/2016 [place] Systolic (mm Hg) 142 05/02/2016 [place] Diastolic (mm Hg) 94 05/02/2016 [place] Respitory Rate 21 05/02/2016 [place] Heart Rate 62 05/02/2016 [place] Weight 67.864 05/02/2016 [place] BMI Calculated 28.27 05/02/2016 [place] Height 154.94 cm 04/25/2016 [place] Encounters Location Location Encounter Encounter Reason Attending ADM DC Status Source Details Type Number For Provider Date Date Visit [facility] [id number] Shinil 05/02 05/02 Haris Shoemaker [facility] [place] [facility] [id number] Tee 05/31 06/01 Haris Cifuentes [place] Procedures Procedure Code Date Perfomer Comments Source Cataract surgery [id number] 06/05/2012 [place] Removal - procedure [id number] 06/05/2005 [place] Hysterectomy [id number] 06/05/1988 [place] Appendectomy [id number] 06/05/1979 [place] Breast implantation [id number] 06/05/1974 [place] Miscellaneous [id number] 06/05/1960 [place] Breast biopsy and [id number] [place] related procedures [place] Laparoscopy<sup>1</ [id number] LAPAROSCOPIC MESENTERIC [place] sup> LYMPH NODE BIOPSY, [place] PRIMARY UMBILICAL HERNIA REPAIR Assessment and Plan No Data Provided for This Section Plan of Care No Data Provided for This Section Social History Social History Date Source Social History TypeResponse 04/25/2016 [place] Substance Abuse Use: None. Exercise 1 Employment/School Status: Retired. Alcohol 2 Smoking Status Former smoker; Exposure to Tobacco Smoke None; Cigarette Smoking Last 365 Days No; Reg Smoking Cessation Counseling No3 [id number] 1979 Family History No Data Provided for This Section Advance Directives No Data Provided for This Section Functional Status No Data Provided for This Section
[2019-02-22] MEDS ORDERED: FENTANYL CITR 100 MCG/2 ML ONE (07:19)
[2019-02-22] MEDS ORDERED: NA CHLORIDE 0.9% 1,000 ML ONE (07:19)
[2019-02-22] MEDS ORDERED: PROMETHAZINE 25 MG/ML VIAL ONE (07:19)
[2019-02-22 08:02] LABS: Absolute Lymphocytes (CBC) 2.2 K/uL (0.7-4.9); Basophils % 0.6 % (0-1.3); Hematocrit 32.3 % (36.0-45.0); Lymphocytes % 26.4 % (15.3-44.8); MPV 8.3 fL (7.6-11.3); RBC Red Blood Cell Count 3.93 M/uL (3.86-4.86)
[2019-02-22 08:18] LABS: Albumin 3.4 g/dL (3.4-5.0); Bilirubin Direct 0.1 mg/dL (0-0.2); Bilirubin Total 0.3 mg/dL (0.2-1.0); Potassium 3.7 mmol/L (3.5-5.1); Protein, Total 6.8 g/dL (6.4-8.2)
--- NOTE | 2019-02-22 08:57 | RAD REPORT ---
EXAM DESCRIPTION: CT - Abdomen Pelvis W Contrast - 02/22/2019 8:39 am CLINICAL HISTORY: ABD PAIN COMPARISON: None. TECHNIQUE: Biphasic, helical CT imaging of the abdomen and pelvis was performed following 100 ml non -ionic IV contrast. Oral contrast was given. All CT scans are performed using dose optimization technique as appropriate and may include automated exposure control or mA/KV adjustment according to patient size. FINDINGS: No suspicious findings in the lung bases. Liver shows diffuse fatty infiltration moderate in severity. No focal liver lesion identified. Pancre as and spleen without acute findings. Gallbladder and biliary tree are also without suspicious findin g. Symmetric renal function is seen with no hydronephrosis or suspicious renal mass. No pyelonephritis o r acute parenchymal process. No bladder abnormalities. No adrenal abnormalities. Uterus is absent. Ov duarte are absent or atrophic. No adnexal mass. There is pelvic floor laxity evident. No gastric dilatation or wall thickening. No dilated large or small bowel loop seen. Very minimal div erticulosis evident with no diverticulitis. An acute process of the bowel is not seen. However, the p atient does have several mesenteric lymph nodes along the central mesenteric vasculature along with a nonspecific congestion or edema of the central mesenteric fat. No free air, free fluid or inflammatory stranding. No signet hernia defects seen. The abdominal wall extends to the skin surface at the umbilicus where there is a small 12 millimeter hernia. No bulky l ymphadenopathy or other mass lesion. No suspicious bony findings. Degenerative changes are present. IMPRESSION: Congestion or edema in the central mesenteric fat with multiple small mesenteric lymph n odes. No acute process of the bowel. No other acute findings noted. Central mesenteric process is nonspecific and may represent mesenteric adenitis or nonspecific enteri tis.
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
--- NOTE | 2019-02-22 10:02 | ER ---
Nurse's Notes [facility] Name: Gregoria Vela Age: 69 yrs Sex: Female : 1950 Arrival Date: 02/22/2019 Time: 06:29 Bed 7 Private MD: Yovany Mulligan E Diagnosis: Enteritis, unspecified Presentation: 02/22 06:40 Presenting complaint: Patient states: started 2 days i feel like my abdomen is rr5 bubbling. I took tramadol thinking its going to be fine. but today it gets worse I feel it swells. 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 episodes of diarrhea red and dark stool. associated with abdominal pain pain score 8/10, nausea and vomiting. 06:40 Transition of care: patient was not received from another setting of care. Onset of rr5 symptoms was February 20, 2019. Risk Assessment: Do you want to hurt yourself or someone else? Patient reports no desire to harm self or others. Initial Sepsis Screen: Does the patient meet any 2 criteria? No. Patient's initial sepsis screen is negative. Does the patient have a suspected source of infection? No. Patient's initial sepsis screen is negative. Care prior to arrival: Medication(s) given: tramadol. 06:40 Method Of Arrival: Wheelchair rr5 06:40 Acuity: ERIC 3 rr5 Triage Assessment: 06:52 General: Appears in no apparent distress. uncomfortable, Behavior is calm, cooperative, rr5 appropriate for age. Pain: Complains of pain in abdomen Pain does not radiate. Pain currently is 8 out of 10 on a pain scale. Quality of pain is described as aching, Pain began 2-3 days ago. Is intermittent. Neuro: Level of Consciousness is awake, alert, obeys commands, Oriented to person, place, time, situation, Appropriate for age. Cardiovascular: Capillary refill < 3 seconds Patient's skin is warm and dry. Respiratory: Airway is patent Respiratory effort is even, unlabored, Respiratory pattern is regular, symmetrical. GI: Abdomen is round obese, Reports lower abdominal pain, upper abdominal pain, diarrhea, bloody stool, flatulence, gaseousness, nausea, vomiting. Historical: - Allergies: 06:40 Tylenol; rr5 - Home Meds: 06:40 gemfibrocell [Active]; Aspirin Oral [Active]; fenofibrate Oral [Active]; Isosorbide rr5 Mononitrate Oral [Active]; lisinopril Oral [Active]; Premarin Oral [Active]; Prevacid Oral [Active]; Prozac Oral [Active]; - PMHx: 06:40 Hyperlipidemia; Hypertension; LYMPHOMA; plate in head; skin cancer; rr5 - PSHx: 06:40 Hysterectomy; breast surgery; rr5 - Immunization history:: Adult Immunizations up to date. - Social history:: Smoking status: Patient/guardian denies using tobacco. - Ebola Screening: : Patient negative for fever greater than or equal to 101.5 degrees Fahrenheit, and additional compatible Ebola Virus Disease symptoms Patient denies exposure to infectious person Patient denies travel to an Ebola-affected area in the 21 days before illness onset. Screenin:52 Abuse screen: Denies threats or abuse. Denies injuries from another. Nutritional rr5 screening: No deficits noted. Tuberculosis screening: No symptoms or risk factors identified. Fall Risk None identified. Total Bernstein Fall Scale indicates No Risk (0-24 pts). Assessment: 07:27 Reassessment: Patient appears in no apparent distress at this time. sg 07:27 General: Appears uncomfortable, ill, well groomed, well developed, well nourished, sg Behavior is cooperative, restless. Pain: Complains of pain in abdomen. 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 Full function Speech is normal, Facial symmetry appears normal. Cardiovascular: Heart tones S1 S2 present Patient's skin is warm and dry. Chest pain is denied. Respiratory: Airway is patent Respiratory effort is even, unlabored, Respiratory pattern is regular, symmetrical. GI: Reports nausea, swelling/distention in abdomen. GI: Bowel sounds present X 4 quads. Abd is soft and non tender X 4 quads. : No signs and/or symptoms were reported regarding the genitourinary system. EENT: No signs and/or symptoms were reported regarding the EENT system. Derm: Skin is pink, warm \T\ dry. Musculoskeletal: No signs and/or symptoms reported regarding the musculoskeletal system. 07:35 Reassessment: Patient appears in no apparent distress at this time. lab at bedside for sg blood draw, pt reports feeling better after IVP medication. 07:58 Reassessment: Patient appears in no apparent distress at this time. pt reports feeling sg better, requesting water and ice at this time, pt to be scanned for CT abd/pelvis, pt stated understanding. 08:54 Reassessment: Patient appears in no apparent distress at this time. Patient and/or sg family updated on plan of care and expected duration. Pain level reassessed. Patient is alert, oriented x 3, equal unlabored respirations, skin warm/dry/pink. 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 08:55 Reassessment: pt family requesting ice water for patient, pt and pt family educated on sg NPO until results are back, pt and pt family stated understanding. Vital Signs: 06:40 BP 143 / 61; Pulse 77; Resp 19; Temp 97.4; Pulse Ox 99% ; Weight 79.83 kg; Height 5 ft. rr5 1 in. (154.94 cm); Pain 8/10; 10:24 BP 135 / 50; Pulse 66; Resp 19; Temp 98.1(TE); Pulse Ox 97% on R/A; jb1 06:40 Body Mass Index 33.25 (79.83 kg, 154.94 cm) rr5 ED Course: 06:29 Patient arrived in ED. mr 06:29 Yovany Mulligan MD is Private Physician. mr 06:40 Arm band placed on. rr5 06:43 Jason Cope MD is Attending Physician. [facility] 06:43 [facility] Ewing [facility]C [facility]. snw 06:48 Triage completed. rr5 06:53 Patient has correct armband on for positive identification. Placed in gown. Bed in low rr5 position. Call light in reach. Side rails up X2. Pulse ox on. NIBP on. 07:26 Elias Golden, RN is Primary Nurse. sg 07:30 Inserted saline lock: 22 gauge in right forearm, using aseptic technique. jb1 08:[address] Scan. sg 08:42 CT Abd/Pelvis - IV Contrast Only In Process Unspecified. EDMS 08:55 Awaiting radiology results. sg 09:57 Yovany Mulligan MD is Referral Physician. snw 10:57 No provider procedures requiring assistance completed. IV discontinued, intact, sv bleeding controlled, No redness/swelling at site. Pressure dressing applied. Administered Medications: 07:20 Drug: fentaNYL (PF) 50 mcg Route: IVP; Site: right antecubital; sg 07:20 Follow up: 20- IFTIKHAR +1 sg 08:05 Follow up: Response: No adverse reaction; Pain is decreased; RASS: Alert and Calm (0) sg 07:20 Drug: Phenergan 6.25 mg Route: IVP; Site: right antecubital; sg 08:06 Follow up: Response: No adverse reaction; Nausea is decreased sg 07:27 Drug: NS 0.9% 1000 ml Route: IV; Rate: 125 ml/hr; Site: right antecubital; sg 10:57 Follow up: Response: No adverse reaction; IV Status: Order to discontinue infusion sv Intake: Outcome: 10:01 Discharge ordered by . snw 10:57 Discharged to home via wheelchair, with family. sv 10:57 Condition: stable 10:57 Discharge instructions given to patient, family, Instructed on discharge instructions, follow up and referral plans. no drinking with medication, no driving heavy equipment, medication usage, increase fluids Demonstrated understanding of instructions, follow-up care, medications, Prescriptions given X 2. 10:57 Patient left the ED. sv Signatures: Dispatcher [employer] EDMS Gianfranco Davis Stephanie, RN Elias Tran RN RN sg Anderson, Corey, MD MD cha Therrien, Shelly, POSTAL SORTING OFFICER-C POSTAL SORTING OFFICER-[facility] Flora Hernández Raymond RN RN rr5
[2019-02-22 11:14] VITALS: BP 135/50; TEMP 98.1; O2SAT 97
[2019-02-22 15:54] LABS: Urine Blood NEGATIVE (NEG); Urine Glucose NEGATIVE (NEG); Urine Protein NEGATIVE (NEG); Urine pH 8.5 (5.0-7.0)
== END 2019-02-22 10:57 | disposition home or self-care (01) ==
LOC: ER 06:26
DX: K52.9 Noninfective gastroenteritis and colitis, unspecified (principal); I10 Essential (primary) hypertension; E78.5 Hyperlipidemia, unspecified; Z79.82 Long term (current) use of aspirin; Z85.72 Personal history of non-Hodgkin lymphomas; Z85.828 Personal history of other malignant neoplasm of skin; Z88.6 Allergy status to analgesic agent
CPT/HCPCS: 96361; 87040; 85025; 80048; 36415; 80076; 81003; 83690; 74177; 96375; 96374; 99284; Q9967; J2550; J3010; J7030

== ENCOUNTER 2020-04-27 16:10 | Emergency (ER) | payer BC ==
--- OUTSIDE RECORDS SUMMARY | 2020-04-27 16:17 | XMS REPORT | Clinical Summary ---
:1950 Author Organization [facility] Address [address] [place] [address] Care Team Providers Name Role Phone Elpidio Burr MD Primary Care Provider Allergies Not on File Medications Medication Sig Dispensed Refills Start Date End Date Status traMADoL (ULTRAM) 50 Take 1 tablet (50 30 tablet 0 03/27/2020 04/06/2020 mg mg total) by tabletIndications: mouth every 8 acute pain (eight) hours as needed for moderate pain for up to 10 days .acute pain. Active Problems Not on file Encounters Date Type Specialty Care Team Description 04/07/2020 Orders Only Orthopedic Surgery Raymundo Brown, Spondylol isthesis of lumbar region (Primary Dx); Chase Lux Lumbar radiculo alesia, chronic 04/06/2020 Office Visit Orthopedic Surgery Raymundo Brown Spondylol isthesis of lumbar region (Primary Dx); Chase Lux Lumbar radiculo alesia, chronic 04/06/2020 Orders Only Orthopedic Surgery Raymundo Brown, Spondylol isthesis of lumbar region (Primary Dx); Chase Lux Lumbar radiculo alesia, chronic; MD Margaux sousa al low back pain without sciatica 04/06/2020 Orders Only Orthopedic Surgery Raymundo Brown, Spondylol isthesis, lumbar region (Primary Dx); Chase Lux Lumbar radiculo alesia MD 04/06/2020 Travel 03/27/2020 Orders Only Orthopedic Surgery Raymundo Brown, Facet art hritis of lumbar Chase Lux, region (Primary Dx) 03/26/2020 Travel 03/24/2020 Hospital Encounter Radiology Raymundo Brown Lumbar fa cet joint pain Chase Lux MD 03/24/2020 Office Visit Orthopedic Surgery Raymundo Brown, Facet art hritis of lumbar region (Primary Dx); Chase Lux, Chronic bilater al low back pain without sciatica 03/24/2020 Orders Only Orthopedic Surgery Raymundo Brown, Lumbar fa cet joint pain Chase Lux, (Primary Dx) 03/24/2020 Travel 03/04/2020 Travel after 04/27/2019 Social History Tobacco Use Types Packs/Day Years Used Date Never Assessed Sex Assigned at Date Recorded Not on file COVID-19 Exposure Response Date Recorded In the last month, have you been in contact with No / Unsure 04/06/2020 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 Last Filed Vital Signs Not on file Plan of Treatment Health Maintenance Due Date Last Done Comments BREAST CANCER SCREENING 01/05/2002 COLONOSCOPY SCREENING 01/05/2002 SHINGLES VACCINES (#1) 01/05/2002 65+ PNEUMOCOCCAL VACCINE (1 of 1 - PPSV23) 01/05/201704/02 INFLUENZA VACCINE 01/04/2020 04/16/2014, 04/02/2013 Implants Implanted Type Area Institutional Aide Device Identifier Shelf Exp iration Model / Date Serial / L ot Stent.No Info Procedures Procedure Name Priority Date/Time Associated Diagnosis Comme nts MRI LUMBAR SPINE WO STAT 03/24/2020 5:19 PM Lumbar facet j oint Results for this CONTRAST CDT pain procedure are i n the results section. XR LUMBAR SPINE Routine 03/24/2020 2:02 PM Low back pain, Res ults for this COMPLETE 4+ VW CDT unspecified back procedure are in pain laterality, the results unspecified section. chronicity, unspecified whether sciatica present after 04/27/2019 Results MRI Lumbar Spine Wo Contrast (03/24/2020 5:19 PM CDT) Specimen Narrative Performed At This result has an attachment that is no t available. Exam: MRI of the lumbar spine without contrast [facility] History: Lumbar facet joint pain Comparison studies: None Technique: Multiplanar multisequence MRI of the lumbar spine. Contrast: None Complications: None FINDINGS: Number of non-rib bearing lumbar vertebral bodies: 5. Alignment: Normal lordosis.No scoliosis. Soft tissues: No signal abnormalities. Posterior paraspinal muscles: Fatty infi ltration of the paraspinal musculature secondary to mild atrophy. Conus medullaris:Normal, ends at L1-L2. Cauda equina: No masses or arachnoidit is. Linear fat deposition at the filum terminale. Vertebrae: No fractures, infection or neoplasm. Degenerative changes: L1-L2: Disc degeneration with decreased interve rtebral space and loss of T2 signal. Mild disc bulge with patent canal and foramina. L2-L3: Disc degeneration with loss of T2 signal. Patent canal and foramina. L3-L4: Disc degeneration with loss of T2 signal . Diffuse disc bulge and mild facet hypertrophy results in no significant canal stenosis. L4-L5: Disc degeneration with loss of T2 signal . Diffuse disc bulge with superimposed right subarticular disc protrusion, moderate bilateral facet hypertrophy and ligamentum flavum buckling results in severe narrowing of the right subarticular recess, mild canal stenosis and mild bilateral forami nal narrowing. Possible impingement on the descending L5 nerve root. Fluid at the bilateral facet joints secondary to synov itis. L5-S1: Disc degeneration with loss of T2 signal . Mild diffuse disc bulge and mild facet hypertrophy results in no significant canal stenosis. Sacrum and coccyx: Symmetric. No signal abnormalities. IMPRESSION: 1. Right subarticular disc protrusion at L4-L5 obliterates the ipsilateral recess, with possible impingement on the descending L5 nerve root the right side. 2. Moderate facet hypertrophy at L4-L5 w ith synovitis changes. Other degenerative changes without significant (moderate or severe) canal stenosis or foraminal narrowing. . Procedure Note Hm Interface, Radiology Results 03/24/2020 5:40 PM CDT Exam: MRI of the lumbar spine without contrast History: Lumbar facet joint pain Comparison studies: None Technique: Multiplanar multisequence MRI of the lum bar spine. Contrast: None Complications: None FINDINGS: Number of non-rib bearing lumbar vertebr al bodies: 5. Alignment: Normal lordosis.No scoliosis. Soft tissues: No signal abnormalities. Posterior paraspinal muscles: Fatty infi ltration of the paraspinal musculature secondary to mild atrophy. Conus medullaris:Normal, ends at L1-L2. Cauda equina: No masses or arachnoiditi s. Linear fat deposition at the filum terminale. Vertebrae: No fractures, infection or neoplasm. Degenerative changes: L1-L2: Disc degeneration with decreased interve rtebral space and loss of T2 signal. Mild disc bulge with patent canal and foramina. L2-L3: Disc degeneration with loss of T2 signal . Patent canal and foramina. L3-L4: Disc degeneration with loss of T2 signal . Diffuse disc bulge and mild facet hypertrophy results in no significant canal stenosis. L4-L5: Disc degeneration with loss of T2 signal . Diffuse disc bulge with superimposed right subarticular disc protrusion, moderate bilateral facet hypertrophy and ligamentum flavum buckling results in severe narrowing of the right subarticular recess, mild canal stenosis and mild bilateral forami nal narrowing. Possible impingement on the descending L5 nerve root. Fluid at the bilateral facet joints seco ndary to synovitis. L5-S1: Disc degeneration with loss of T2 signal . Mild diffuse disc bulge and mild facet hypertrophy results in no significant canal stenosis. Sacrum and coccyx: Symmetric. No signal abnormalities. IMPRESSION: 1. Right subarticular disc protrusion a t L4-L5 obliterates the ipsilateral recess, with possible impingement on the descending L5 nerve root the right side. 2. Moderate facet hypertrophy at L4-L5 w ith synovitis changes. Other degenerative changes without significant (moderate or severe) canal stenosis or foraminal narrowing. . Performing Organization Address City/[facility] Phon e Number [facility] [id number] [place] [address] XR Lumbar Spine Complete 4+ Vw (03/24/2020 2:02 PM CDT) Specimen Narrative Performed At This result has an attachment that is no t available. X-ray lumbar spine spondylosis L4-5 L5-S1 [facility] 2 mm spondylolisthesis minimally mobile at the L4-5 se gment Facet arthrosis L3-4, L4-5 and L5-1. No fractures or bony erosions visualized. 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
--- OUTSIDE RECORDS SUMMARY | 2020-04-27 16:18 | XMS REPORT | Continuity of Care Document ---
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/03/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, systemic L and arterial (disorder) Malignant neoplasm Resolved Problem 06/03/2016 [place] of skin (disorder) L and Neck pain (finding) Active Problem 06/03/2016 [place] Medications Medication Details Route Status Patient Ordering Order Source Instructions Provider Date Roxicodone 5 mg, Route: Inactive PO, ONCE, 2015 [place] Dosing [place] Weight 67.864, kg, Start date: 05/02/16 14:33:00 QUALITY CONTROL REPRESENTATIVE, Stop date: 05/02/16 14:33:00 QUALITY CONTROL REPRESENTATIVE glycopyrrolate (ANES) Route: IV, Inactive Drug form: 2015 [place] INJ, ONCE, [place] Stop date: 05/02/16 12:36:00 QUALITY CONTROL REPRESENTATIVE neostigmine (ANES) Route: IV, Inactive M H Drug form: 2015 [place] INJ, ONCE, [place] Stop date: 05/02/16 12:36:00 QUALITY CONTROL REPRESENTATIVE Meperidine Notes: (Same Inactive as: Demerol) 2015 [place] "Use Land Precaution in Elderly, Seizure disorders, and Renal impairment&q uot; Dexamethasone Notes: Inactive Concentratio 2016 [place] n: 4mg/ml [place] Ondansetron Notes: (Same Inactive as: Zofran) 2015 [place] MEDICATION WASTE Product Size: 4 mg Product Wasted: ___ mg Ketorolac 4 days Inactive 2016 [place] MEDICATION [place] WASTE Product Size: 30 mg Product Wasted: ___ mg Oxycodone Notes: (Same Inactive as: 2016 [place] 'Roxicodone) [place] Acetaminophen 1,000 mg, Inactive Route: IVPB, 2015 [place] Drug form: [place] INJ, Q6H, Dosing Weight 67.727, kg, PRN Pain Score 1-3, Start date: 05/02/16 12:29:00 QUALITY CONTROL REPRESENTATIVE, Duration: 1 doses or times, Stop date: Limited # of times Labetalol Notes: (Same Inactive as: 2015 [place] Normodyne, [place] Trandate) Push over 2 minutes Give bolus over 2-3 minutes. Naloxone Notes: Same Inactive as Narcan 2015 [place] Flumazenil Notes: (Same Inactive as: 2015 [place] Romazicon) [place] Hydromorphone Notes: Same Inactive as Dilaudid 2016 [place] POLYETHYLENE GLYCOL 17 gm, PO, Active H 3350 142 MG/ML Oral Daily, PRN 2016 [place] Solution [Miralax] Constipation Land , X 31 day, # 527 gm, 0 Refill(s) tramadol 50 mg = 1 Active hydrochloride 50 MG tab, PO, 2016 [place] Oral Tablet Q6H, PRN [place] Pain, X 7 day, # 28 tab, 0 Refill(s) ondansetron (ANES) Route: IV, Inactive H Drug form: 2015 [place] INJ, ONCE, [place] Stop date: 05/02/16 11:54:00 QUALITY CONTROL REPRESENTATIVE ePHEDrine (ANES) Route: IV, Inactive Drug form: 2015 [place] INJ, ONCE, [place] Stop date: 05/02/16 11:14:00 QUALITY CONTROL REPRESENTATIVE metoclopramide (ANES) Route: IV, Inactive Drug form: 2015 [place] INJ, ONCE, [place] Stop date: 05/02/16 11:04:00 QUALITY CONTROL REPRESENTATIVE famotidine (ANES) Route: IV, Inactive Drug form: 2015 [place] INJ, ONCE, [place] Stop date: 05/02/16 11:04:00 QUALITY CONTROL REPRESENTATIVE rocuronium (ANES) Route: IV, Inactive Drug form: 2015 [place] INJ, ONCE, [place] Stop date: 05/02/16 11:04:00 QUALITY CONTROL REPRESENTATIVE acetaminophen (ANES) Route: IV, Inactive Drug form: 2015 [place] INJ, ONCE, [place] Stop date: 05/02/16 11:04:00 QUALITY CONTROL REPRESENTATIVE propofol (ANES) Route: IV, Inactive Drug form: 2015 [place] INJ, ONCE, [place] Stop date: 05/02/16 10:59:00 QUALITY CONTROL REPRESENTATIVE succinylcholine Route: IV, Inactive (ANES) Drug form: 2015 [place] INJ, ONCE, [place] Stop date: 05/02/16 10:59:00 QUALITY CONTROL REPRESENTATIVE midazolam (ANES) Route: IV, Inactive Drug form: 2015 [place] SOLN, ONCE, [place] Stop date: 05/02/16 10:59:00 QUALITY CONTROL REPRESENTATIVE fentaNYL (ANES) Route: IV, Inactive Drug form: 2015 [place] INJ, ONCE, [place] Stop date: 05/02/16 10:59:00 QUALITY CONTROL REPRESENTATIVE lidocaine (ANES) Route: IV, Inactive Drug form: 2015 [place] INJ, ONCE, [place] Stop date: 05/02/16 10:59:00 QUALITY CONTROL REPRESENTATIVE cefOXitin (ANES) Route: IV, Inactive Drug form: 2015 [place] INJ, ONCE, [place] Stop date: 05/02/16 10:54:00 QUALITY CONTROL REPRESENTATIVE LR 1000 mL INJ (ANES) Route: IV, Inactive Total 2016 [place] Volume: [place] 1,000, Start date: 05/02/16 10:19:00 QUALITY CONTROL REPRESENTATIVE, Stop date: 05/02/16 11:19:00 QUALITY CONTROL REPRESENTATIVE Neurontin Notes: (Same Inactive as: 2015 [place] Neurontin) [place] Calcium Chloride 1,000 mL, Inactive 0.0014 MEQ/ML / Rate: 25 2015 [place] Potassium Chloride ml/hr, [place] 0.004 MEQ/ML / Sodium Infuse over: Chloride 0.103 MEQ/ML 40 hr, / Sodium Lactate Route: IV, 0.028 MEQ/ML Dosing Injectable Solution Weight 67.727 kg, Total Volume: 1,000, Start date: 05/02/16 7:59:00 QUALITY CONTROL REPRESENTATIVE, Duration: 30 day, Stop date: 06/01/16 7:58:00 QUALITY CONTROL REPRESENTATIVE Lovenox Notes: (Same Inactive as: Lovenox) 2015 [place] CeleBREX Notes: Inactive NSAID. 2016 [place] Please check [place] indication. Not for seizure. (Same As: CeleBREX) Mefoxin + sodium Notes: (Same Inactive H chloride 0.9% INJ 100 As: Mefoxin) 2015 [place] mL [place] MEDICATION WASTE Product Size: 2000 mg Product Wasted: ___ mg Neurontin Notes: (Same Inactive as: 2015 [place] Neurontin) [facility] Fish Oil 1200 mg oral = 2 tab, PO, Active 04/25 capsule PRN, 0 2015 [place] Refill(s) [place] biotin 1000 mcg oral 2,000 Active tablet microgram = 2015 [place] 2 tab, PO, [place] Daily, # 30 tab, 0 Refill(s) lansoprazole 30 MG 30 mg = 1 Active Enteric Coated cap, PO, 2015 [place] Capsule [Prevacid] Daily, 0 [place] Refill(s) Aspirin 325 MG Oral 325 mg = 1 Active M H Tablet tab, PO, 2015 [place] BID, 0 [place] Refill(s) latanoprost 0.05 1 drp, QPM, Active MG/ML Ophthalmic 0 Refill(s) 2015 [place] Solution [Xalatan] Niacin SR 500 mg oral 500 mg = 1 Active capsule, extended cap, PO, 2015 [place] release Bedtime, 0 [place] Refill(s) Fenofibrate 145 MG 145 mg = 1 Active Oral Tablet tab, PO, 2015 [place] Daily, 0 [place] Refill(s) acyclovir 200 mg oral 200 mg = 1 Active capsule cap, PO, 2015 [place] TID, 0 [place] Refill(s) carisoprodol 350 mg 350 mg = 1 Active M H oral tablet tab, PO, 2015 [place] QID, 0 [place] Refill(s) Estrogens, Conjugated 1.25 mg = 1 Active (LONG TERM) 1.25 MG Oral tab, PO, 2015 [place] Tablet [Premarin] Daily, 0 [place] Refill(s) FLUoxetine 20 mg oral 20 mg = 1 Active tablet tab, PO, 2015 [place] Daily, 0 [place] Refill(s) isosorbide dinitrate 30 mg = 1 Active H 30 mg oral tablet tab, PO, 2015 [place] Daily, 0 [place] Refill(s) Hydrochlorothiazide 1 tab, PO, Active H 12.5 MG / Lisinopril Daily, 0 2015 [place] 20 MG Oral Tablet Refill(s) [place] Allergies, Adverse Reactions, Alerts Substance Category Reaction Severity Reaction Status Date Comments S ource type Reported Tylenol Assertion rash Drug Active MH allergy [place] Immunizations No Data Provided for This Section Results Order Name Results Value Reference Date Interpretation Comments [facility] [place] HEMATOLOGY Eosinophils # 0.2 0.0 - 0.5 2015 [place] HEMATOLOGY Monocytes 5.5 2.0 - 12.0 2015 [place] HEMATOLOGY Segs 57.7 45.0 - 75.0 2015 [place] HEMATOLOGY Lymphocytes 33.5 20.0 - 40.0 2015 [place] HEMATOLOGY Eosinophils 2.9 0.0 - 4.0 2015 [place] HEMATOLOGY Segs-Bands # 4.9 1.5 - 8.1 2015 [place] HEMATOLOGY Lymphocytes # 2.9 1.0 - 5.5 2015 [place] HEMATOLOGY Monocytes # 0.5 0.0 - 0.8 2015 [place] HEMATOLOGY Basophils 0.4 0.0 - 1.0 2015 [place] HEMATOLOGY Basophils # 0.0 0.0 - 0.2 2015 [place] HEMATOLOGY Large Plt Slight 2015 [place] HEMATOLOGY Hgb 13.3 12.0 - 16.0 2015 [place] HEMATOLOGY WBC 8.5 3.7 - 10.4 2015 [place] HEMATOLOGY RBC 4.72 4.20 - 5.40 2015 [place] HEMATOLOGY MCHC 32.7 32.0 - 36.0 2015 [place] HEMATOLOGY MCH 28.2 27.0 - 31.0 2015 [place] HEMATOLOGY RDW 15.7 11.5 - 14.5 2015 [place] HEMATOLOGY MCV 86.5 80.0 - 98.0 2015 [place] HEMATOLOGY Hct 40.8 36.0 - 48.0 2015 [place] HEMATOLOGY MPV 9.6 7.4 - 10.4 2015 [place] HEMATOLOGY Platelet 268 133 - 450 2015 [place] HEMATOLOGY PT 13.5 12.0 - 14.7 2015 [place] HEMATOLOGY INR 1.01 0.85 - 1.17 2015 [place] HEMATOLOGY PTT 33.2 22.9 - 35.8 2015 [place] HEMATOLOGY Platelet 276 133 - 450 2015 [place] CHEM PANEL eGFR 97 2015 Comment: The [...] Sodium Lvl 137 135 - 145 2015 [place] CHEM PANEL BUN 16 7 - 22 2015 [place] CHEM PANEL CO2 27 24 - 32 2015 [place] CHEM PANEL Creatinine 0.60 0.50 - 1.40 Lvl 2016 [place] CHEM PANEL Glucose Lvl 97 70 - 99 2015 [place] CHEM PANEL Potassium Lvl 4.0 3.5 - 5.1 2015 [place] CHEM PANEL Calcium Lvl 9.0 8.5 - 10.5 2015 [place] CHEM PANEL Chloride Lvl 101 95 - 109 2015 [place] CHEM PANEL AGAP 13.0 10.0 - 20.0 2015 [place] HEMATOLOGY MPV 8.6 7.4 - 10.4 2015 [place] HEMATOLOGY Platelet 323 133 - 450 2015 [place] HEMATOLOGY MCHC 33.2 32.0 - 36.0 2015 [place] HEMATOLOGY MCH 28.2 27.0 - 31.0 2015 [place] HEMATOLOGY RDW 15.2 11.5 - 14.5 2015 [place] HEMATOLOGY Hgb 12.6 12.0 - 16.0 2015 [place] HEMATOLOGY Hct 38.0 36.0 - 48.0 2015 [place] HEMATOLOGY MCV 85.0 80.0 - 98.0 2015 [place] HEMATOLOGY WBC 8.8 3.7 - 10.4 2015 [place] HEMATOLOGY RBC 4.47 4.20 - 5.40 2015 [place] HEMATOLOGY Basophils # 0.1 0.0 - 0.2 2015 [place] HEMATOLOGY Eosinophils # 0.1 0.0 - 0.5 2015 [place] HEMATOLOGY Eosinophils 1.3 0.0 - 4.0 2015 [place] HEMATOLOGY Monocytes 6.7 2.0 - 12.0 2015 [place] HEMATOLOGY Lymphocytes # 2.9 1.0 - 5.5 2015 [place] HEMATOLOGY Monocytes # 0.6 0.0 - 0.8 2015 [place] HEMATOLOGY Lymphocytes 33.2 20.0 - 40.0 2015 [place] HEMATOLOGY Segs-Bands # 5.1 1.5 - 8.1 2015 [place] HEMATOLOGY Basophils 0.6 0.0 - 1.0 2015 [place] HEMATOLOGY Segs 58.2 45.0 - 75.0 2015 [place] Pathology Reports No Data Provided for This Section Diagnostic Reports Report Value Date Source Bone Marrow Aspiration PROCEDURES PERFORMED: 05/31/[address] [facility] [address] 1. Bone Marrow aspiration and core needle biops y. 2. CT guidance. 3. Moderate Sedation HISTORY: Abnormal blood differential; history o f non-Hodgkin's lymphoma Possible risks and complicat ions of the procedure were discussed with the patient. Possible risks including pain, infection, bleeding, nondiagnostic sampling with need for resampling were discussed. The patient understood and asked to proceed. SEDATION: Moderate sedation for 30 minutes with fentanyl and Versed was carried out with monitoring by the nursing staff and myself throughout the procedure. Total DLP: 324.99 mGy-cm PROCEDURE DETAILS: Sterile barrier technique wa s followed including: Cap and mask, sterile gown, sterile gloves, and large sterile sheet. Hand hygiene, and 2% chlorhexidine for cutaneous antisepsis (or acceptable alternative antiseptics, per current guideline). The patient was placed supin e on the CT scanner and a focused non-contrast scan of the pelvis was performed. The right gluteal region was prepped and draped in a standard sterile fashion. After administering local an esthesia, an 18-gauge bone biopsy needle was advanced with CT guidance into the left iliac bone. Satisfactory position was confirmed with CT. Approximately 7 cc of marrow w as aspirated and given to [facility] pathology laboratory director for preparation. An 8 gauge bone biopsy needle was then advanced under CT guidance into the right iliac bone and a core sample was obtained and given to the pathology technologis t in the room. Satisfactory position was confirmed under CT. The patient tolerated the pr ocedure well, and there were no immediate complications. IMPRESSION: Bone marrow aspiration and c ore needle biopsy with CT guidance of the right iliac bone. Consultation Notes No Data Provided for This Section Discharge Summaries No Data Provided for This Section History and Physicals No Data Provided for This Section Vital Signs Vital Sign Value Date Comments Source Systolic (mm Hg) 144 05/31/2016 [place] Diastolic (mm Hg) 48 05/31/2016 [place] and Respitory Rate 20 05/31/2016 [place] Temperature Oral (F) 98.4 F 05/31/2016 [place] Weight 65.909 05/31/2016 [place] BMI Calculated 27.45 05/31/2016 [place] Height 154.94 cm 05/31/2016 [place] Respitory Rate 20 05/02/2016 [place] Systolic (mm Hg) 131 05/02/2016 [place] Diastolic (mm Hg) 58 05/02/2016 [place] and Respitory Rate 17 05/02/2016 [place] Systolic (mm Hg) 131 05/02/2016 [place] Diastolic (mm Hg) 63 05/02/2016 [place] and Systolic (mm Hg) 142 05/02/2016 [place] Diastolic (mm Hg) 94 05/02/2016 [place] and Respitory Rate 21 05/02/2016 [place] Heart Rate 62 05/02/2016 [place] Weight 67.864 05/02/2016 [place] BMI Calculated 28.27 05/02/2016 [place] Height 154.94 cm 04/25/2016 [place] Encounters Location Location Encounter Encounter Reason Attending ADM DC Stat us Source Details Type Number For Provider Date Date Visit [facility] Day Surgery [id number] Shinil 05/02 05/02 Haris Shoemaker /2015 [place] [facility] [id number] Tee 05/31 06/01 Haris Cifuentes /2015 [place] Procedures Procedure Code Date Perfomer Comments Source Cataract surgery [id number] 06/05/2012 [place] Removal - procedure [id number] 06/05/2005 [place] [facility] [place] Hysterectomy [id number] 06/05/1988 [place] Appendectomy [id number] 06/05/1979 [place] Breast implantation [id number] 06/05/1974 [place] [facility] [place] Miscellaneous [id number] 06/05/1960 [place] Breast biopsy and [id number] [place] related procedures [place] Laparoscopy<sup>1</ [id number] LAPAROSCOPIC MES ENTERIC [place] sup> LYMPH NODE BIOPSY, Land PRIMARY UMBILICAL HERNIA REPAIR Assessment and Plan No Data Provided for This Section Plan of Care No Data Provided for This Section Social History Social History Date Source Social History TypeResponse 04/25/2016 [place] Cem d Substance Abuse Use: None. Exercise 1 Employment/School Status: Retired. Alcohol 2 Smoking Status Former smoker; Exposure to Tobacco Smoke None; Cigarette Smoking Last 365 Days No; Reg Smoking Cessation Counseling No3 [id number] Family History No Data Provided for This Section Advance Directives No Data Provided for This Section Functional Status No Data Provided for This Section
--- OUTSIDE RECORDS SUMMARY | 2020-04-27 16:19 | XMS REPORT | Continuity of Care Document ---
:1950 Author Organization [facility] t Address [address] [place] [address] [address] [place] [address] Care Team Providers Name Role Phone Leno QUACH, Jim Primary Care Physician Jose J Hyde MD Attending Clinician Holland Chandler MD. Attending Clinician Josefina BRIZUELA J Attending Clinician Unavailable Williams QUACH, Nikky Attending Clinician Erick GRIFFITH, G Attending Clinician Unavailable Esau Attending Clinician Ignacia Shoemaker Attending Clinician Esau Admitting Clinician Payers Payer Name Policy Type Policy Effective Date Expiration Date Sour ce Number MEDICAREMEDICARE PART [id number] 2017 [facility] [id number]/[id number]- 00:00:00 Met [place] [id number] 2019 [place] PPO/FEDERAL EMPL 8 00:00:00 Shabana maldonado [id number] 20-PresentPPO MEDICAREMEDICARE PART [id number] 2017 MD Cope [id number] 2016- 00:00:00 [id number] [place] BLUE [id number] 2014 [facility] 8 00:00:00 [id number] 15-PresentPPO Problems Condition Condition Condition Status Onset Resolution Last Treating Co mments Source Name Details Category Date Date Treatment Clinician Date Acute Acute Problem Active [facility] pharyngiti Pharyngiti 7-08 da s s 00:00: Medical 00 Group Pain in Pain in Problem Active [place] the coccyx the Coccyx 7-08 da 00:00: Medical 00 Group Malignant Malignant Problem Active [facility] lymphoma Lymphoma 5-26 da (clinical) (Clinical) 00:00: Me dical 00 Group Cervical Cervical Problem Active 2018-06 [place] [facility] lymphadeno Lymphadeno 2-18 da alesia alesia 00:00: Medical 00 Group Non-neopla Non-neopla Problem Active 2018-06 M [facility] stic nevus stic Nevus 2-03 da 00:00: Medical 00 Group Maxillary Maxillary Problem Active 2018-06 [facility] sinusitis Sinusitis 2-03 da 00:00: Medical 00 Group Gastroesop Gastroesop Problem Active 2018-06 M [facility] hageal hageal 2-03 da reflux Reflux 00:00: Medical disease Disease 00 Group without without esophagiti Esophagiti s s Excessive Excessive Problem Active [facility] weight Weight 7-26 da gain Gain 00:00: Medical 00 Group Low back Low Back Problem Active 2017-06 [place] [facility] strain Strain 2-27 da 00:00: Medical 00 Group 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 00 Acute Acute Problem Active 2016-06 [facility] sciatica Sciatica 1-30 da 00:00: Medical 00 Group Bilateral Bilateral Problem Active [facility] hip joint Hip Joint 9-14 da pain Pain 00:00: Medical 00 Group Chronic Chronic Problem Active [place] fatigue Fatigue 4-07 da syndrome Syndrome 00:00: Medica l 00 Group Trochanter Trochanter Problem Active M [facility] ic ic 4-07 da bursitis Bursitis 00:00: Medica l 00 Group Pruritus Pruritus Disease Active MD 1-20 Anderso 00:00: n 00 Dermatogra Dermatogra Disease Active M D phic phic 1-20 Anderso urticaria urticaria 00:00: n 00 Asteatotic Asteatotic Disease Active M D eczema eczema 1-20 Anderso 00:00: n 00 Bilateral Bilateral Disease Active trochanter trochanter 1-13 An derso ic ic 00:00: n bursitis bursitis 00 C83.3 Diagnosis Active 2015-062016-05-31 Mem oria 08-01 06:59:00 l C83.3 00:00: Haris 00 Active 05/31/2016 MH Weld MESENTERIC Diagnosis Active 2015-062016-05-02 Memoria LYMPH 06-25 07:59:00 l NODE-I88.0 00:00: Gurwinder n MESENTERIC 00 LYMPH NODE-I88.0 Active 04/25/2016 Weld 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 [facility] Malignant Malignant Problem Active [facility] neoplasm Neoplasm da of skin of Skin Medical Group Vitamin D Vitamin D Problem Active [facility] deficiency Deficiency da Medical Group Hypertrigl Hypertrigl Problem Active M [facility] yceridemia yceridemia da Medical Group Body mass Body Mass Problem Active [facility] index 30+ Index 30+ da - obesity - Obesity [facility] Group Obesity Obesity Problem Active [facility] Overweight Overweight Problem Active M [facility] Blood Blood Problem Active [facility] coagulatio Coagulatio da n disorder n Disorder Me dical Group Mesenteric Mesenteric Problem Active M [facility] lymphadeni Lymphadeni da tis tis Medical Group Mixed Mixed Problem Active [facility] anxiety Anxiety da and and Medical depressive Depressive Gr oup disorder Disorder Carpal Carpal Problem Active [place] tunnel Tunnel da syndrome Syndrome Medica l Group Otitis Otitis Problem Active [facility] media Media da Medical Group Acute Acute Problem Active [facility] otitis Otitis da media Media Medical Group Essential Essential Problem Active [facility] hypertensi Hypertensi da on on Medical Group Hypertensi Hypertensi Problem Active M [facility] ve ve da disorder Disorder Medica l Group Hypertensi Hypertensi Problem Active M [facility] ve heart ve Heart da disease Disease Medical Group Acute Acute Problem Active [facility] sinusitis Sinusitis da Medical Group Acute Acute Problem Active [facility] maxillary Maxillary da sinusitis Sinusitis [facility] Group Has a sore Has a Sore Problem Active M [facility] throat Throat da Medical Group Upper Upper Problem Active [facility] respirator Respirator da y y Medical infection Infection Grou p Acute Acute Problem Active [facility] bronchitis Bronchitis da Medical Group Deviated Deviated Problem Active [facility] [facility] nasal Nasal da septum Septum Medical Group Sinusitis Sinusitis Problem Active [facility] Allergic Allergic Problem Active [facility] rhinitis Rhinitis da Medical Group Nasal Nasal Problem Active [facility] obstructio Obstructio da n n Medical Group Noninfecti Noninfecti Problem Active M [facility] ous ous da gastroente Gastroente Me dical ritis ritis Group Adhesion Adhesion Problem Active [facility] [facility] of of da mesentery Mesentery Medi yash Group Gastrointe Gastrointe Problem Active M [facility] stinal stinal da hemorrhage Hemorrhage Me dical Group Gastric Gastric Problem Active [facility] hemorrhage Hemorrhage da Medical Group Menopausal Menopausal Problem Active M [facility] and and da postmenopa Postmenopa Me dical usal usal Group disorders Disorders Dermatitis Dermatitis Problem Active M [facility] da Medical Group Chronic Chronic Problem Active [facility] dermatitis Dermatitis da Medical Group Seborrhea Seborrhea Problem Active [facility] Joint pain Joint Pain Problem Active M [facility] Group Shoulder Shoulder Problem Active [facility] [facility] pain Pain [facility] Group Pain in Pain in Problem Active [facility] elbow Elbow da Medical Group Pain in Pain in Problem Active [facility] wrist Wrist da Medical Group Wrist Wrist Problem Active [facility] joint pain Joint Pain da Medical Group Low back Low Back Problem Active [facility] [facility] pain Pain [facility] Group Adhesive Adhesive Problem Active [facility] [facility] capsulitis Capsulitis da of of Medical shoulder Shoulder Group Bursitis Bursitis Problem Active [facility] Ganglion Ganglion Problem Active [facility] cyst of Cyst of da tendon Tendon Medical sheath Sheath Group Pain in Pain in Problem Active [facility] forearm Forearm da Medical Group Fatigue Fatigue Problem Active [facility] Chest pain Chest Pain Problem Active M [facility] Diarrhea Diarrhea Problem Active [facility] Abdominal Abdominal Problem Active [facility] pain Pain da Medical Group Right Right Problem Active [facility] flank pain Flank Pain da Medical Group Disorder Disorder Problem Active [facility] [facility] of trunk of Trunk [facility] Medical Group Breast Breast Problem Active [facility] lump Lump [facility] Group Hypertroph Hypertroph Problem Active M [facility] y of nasal y of Nasal da turbinates Turbinates Me dical Group Angina Problem Resolve 2016-06-03 Kobi thania (disorder) d 02:23:46 l Angina Haris (disorder) Resolved Problem 06/03/2016 Weld Anxiety Problem Active 2016-06-03 Kobi thania (finding) 02:23:46 l Anxiety Bruno (finding) Active Problem 06/03/2016 Weld Backache Problem Active 2016-06-03 Mem oria (finding) 02:23:46 l Backache Gurwinder n (finding) Active Problem 06/03/2016 Weld Gastroesop Problem Active 2016-06-03 M emoria hageal 02:23:46 l reflux Haris disease Gastroesop (disorder) hageal reflux disease (disorder) Active Problem 06/03/2016 MH Weld Neck pain Problem Active 2016-06-03 Me moria (finding) 02:23:46 l Neck Haris pain (finding) Active Problem 06/03/2016 Weld Allergies, Adverse Reactions, Alerts Allergy Allergy Status Severity Reaction(s) Onset Inactive Treating Comm ents Source Name Type Date Date Clinician Tylenol Allergy Active Rash [place] to [facility] Medical e Group Tylenol Tylenol Active Memoria l Haris Family History Family Member Diagnosis Comments Start Date Stop Date Source Natural brother Diabetes MD Page on Natural father Coronary heart disease MD Cope (CHD) Natural father Hypertension Radhames son Maternal aunt -Brain cancer Radhames son Maternal aunt -Gastrointestinal MD Cheyenne christianson (Esophagus, Liver, Bile Duct, Stomach, Pancreas, Colon, Rectum, Anus Maternal aunt -Leukemia MD Cope Natural mother -Gynecology (Ovary, Alexa Cope Endometrial, Cervix, Vagina) Natural mother -Thoracic or Lung MD Cope Natural mother Coronary heart disease MD Cope (CHD) Natural mother Hypertension Radhames son Natural sister -Genitourinary (Bladder, MD Cope Kidney, Prostate, Testicle) Natural sister Stroke MD Cristobal onofre Social History Social Habit Start Date Stop Date Quantity Comments Source Exposure to Not sure [place] [facility] SARS-CoV-2 (event) Sex Assigned At MD Page on Cigarettes smoked 2019-10-04 2019-10-04 MD Rojas castellano current (pack per 00:00:00 00:00:00 day) - Reported Cigarette 2019-10-04 2019-10-04 MD Cope pack-years 00:00:00 00:00:00 Tobacco use and 2019-10-04 2019-10-04 Never used MD Page on exposure 00:00:00 00:00:00 Alcohol intake 2019-10-04 2019-10-04 Current MD Cristobal onofre 00:00:00 00:00:00 non-drinker of alcohol (finding) Social History 2016-04-25 2016-04-25 Paula bacon 18:11:00 18:11:00 History of tobacco 1968-06-05 1978-06-05 Current smoker MD Cope use 00:00:00 00:00:00 Smoking Status Start Date Stop Date Source Former smoker 2019-10-04 00:00:00 2019-10-04 00:00:00 MD Radhames betts Medications Ordered Filled Start Stop Current Ordering Indication Dosage Frequency Signature Comments Components Source Medication Medication Date Date Medication? Clinician (SIG) Name Name traMADoL 2019-06 acute pain 50mg Q8H Take 1 Noel (ULTRAM) 50 04-06 tablet (50 M ethodi mg tablet 00:00: 23:59 mg total) st 00 :00 by mouth every 8 (eight) hours as needed for moderate pain for up to 10 days .acute pain. lansoprazol 2019- No 1{capsu Take 1 MD e (PREVACID 10-03 le} capsule by A brisarso 24HR) 15 MG 20:22: 00:00 mouth n capsule 17 :00 daily. fexofenadin 2019- No 180mg Take 180 MD e (PHILLIP) 10-03 mg by Camilo carmela 180 mg 20:21: 00:00 mouth n tablet 34 :00 daily. cetirizine 2019- No 10mg Take 10 mg MD (ZyrTEC) 10 10-03 by mouth And erso mg tablet 20:21: 00:00 daily. n 20 :00 aspirin 325 2019- No 2{tbl} Take 2 M D mg tablet 10-03 tablets by And erso 20:00: 00:00 mouth n 59 :00 twice daily. amLODIPine 2019- Yes 5mg Take 5 mg MD (NORVASC) 5 10-03 by mouth Rojas rso mg tablet 19:53: daily. n 57 gemfibrozil 2019- Yes gemfibrozi MD (LOPID) 600 10-03 l 600 mg Rojas rso mg tablet 19:53: tablet n 57 TAKE 1 TABLET BY MOUTH TWICE DAILY icosapent 2020-0 Yes Vascepa 1 MD ethyL 5-01 gram Anderso (Vascepa) 1 19:53: capsule n gram cap 57 TAKE 2 CAPSULES BY MOUTH TWICE DAILY acyclovir 2020-0 Yes 2{capsu Take 2 MD (ZOVIRAX) 5-01 le} capsules Camilo o 200 mg 19:48: by mouth n capsule 02 as needed. acyclovir 2020-0 Yes 1{appli Apply 1 MD (ZOVIRAX) 5-01 cation} applicatio A nderso 5% cream 19:48: n n 02 topically to affected area(s) as needed. fenofibrate 2020-0 Yes 1{tbl} Take 1 MD nanocrystal 5-01 tablet by And erso lized 19:48: mouth n (TRICOR) 02 daily. 145 mg tablet FLUoxetine 2020-0 Yes 1{capsu Take 1 MD (PROzac) 20 5-01 le} capsule by An derso mg capsule 19:48: mouth n 02 daily. isosorbide 2020-0 Yes 1{tbl} Take 1 MD mononitrate 5-01 tablet by And erso (IMDUR) 30 19:48: mouth n mg 24 hr 02 daily. tablet lisinopril- 2020-0 Yes 1{tbl} Take 1 MD hydrochloro 5-01 tablet by And erso thiazide 19:48: mouth n (PRINZIDE,Z 02 twice ESTORETIC) daily. 20-12.5 mg per tablet estrogens, 2020-0 Yes 1{tbl} Take 1 MD conjugated, 5-01 tablet by And erso (PREMARIN) 19:48: mouth n 1.25 mg 02 daily. tablet traMADol 2020-0 Yes 1{tbl} Take 1 MD (ULTRAM) 50 5-01 tablet by And erso mg tablet 19:48: mouth n 02 every 6 (six) hours as needed. carisoprodo 2020-0 Yes 1{tbl} Take 1 MD l (SOMA) 5-01 tablet by Camilo o 350 mg 19:48: mouth as n tablet 02 needed. calcium 2020-0 Yes 2{tbl} Chew 2 MD carbonate 5-01 tablets as Rojas rso (TUMS) 1000 19:48: needed. n mg (400 mg 02 elemental calcium) chewable tablet HYDROXYZINE 2020-0 Yes 100mg Take 100 M D PAMOATE 5-01 mg by Anderso ORAL 19:48: mouth n 02 daily. Patient states that she takes this medication in the middle of the day. aspirin 81 2019-0 Yes 81mg Take 81 mg M D mg EC 5-01 by mouth Anderso tablet 19:48: daily. n 02 clopidogrel 2019-0 Yes 75mg Take 75 mg MD (PLAVIX) 75 4-22 by mouth Rojas rso mg tablet 00:00: daily. n 00 LUMIGAN 2019-0 Yes 1[drp] Administer MD 0.01 % 4-18 1 drop to Anderso ophthalmic 00:00: both eyes. n drops 00 Patient states she does two drops atorvastati 2019- Yes 40mg Take 40 mg MD n (LIPITOR) 3-03 by mouth Rojas rso 40 mg 00:00: at n tablet 00 bedtime. fluocinolon Yes Patient MD arshad 0.01 % 8-26 uses this Camilo o oil 00:00: 2-4 times n 00 a day hydrOXYzine Yes Dermatograp TAKE 1 OR HCl 7-30 hic 2 TABLETS Anderso (ATARAX) 25 00:00: urticaria BY MOUTH n mg tablet 00 EVERY NIGHT AT BEDTIME NEEDED FOR ITCHING. levocetiriz 2020- No TK 1 T PO MD davila (XYZAL) 6 05-01 QD Anderso 5 MG tablet 00:00: 00:00 n 00 :00 Roxicodone 2015-06 No 5 mg, Memori a 07-02 Route: PO, l 20:33: ONCE, Dosing Weight 67.864, kg, Start date: 05/02/16 14:33:00 CARDIOLOGY COORDINATOR, Stop date: 05/02/16 14:33:00 CARDIOLOGY COORDINATOR glycopyrrol 2015-06 No Route: IV, Memoria ate (ANES) 07-02 Drug form: l 18:36: INJ, ONCE, Stop date: 05/02/16 12:36:00 CARDIOLOGY COORDINATOR neostigmine 2015-06 No Route: IV, Memoria (ANES) 07-02 Drug form: l 18:36: INJ, ONCE, Stop date: 05/02/16 12:36:00 CARDIOLOGY COORDINATOR Meperidine 2015-06 No Notes: Memor ia 07-02 (Same as: l 18:29: Demerol) "Use Precaution in Elderly, Seizure disorders, and Renal impairment " Dexamethaso 2015-06 No Notes: Kobi thania ne 07-02 Concentrat l 18:29: ion: Haris 00 4mg/ml Ondansetron 2015-06 No Notes: Kobi thania 07-02 (Same as: l 18:29: Zofran) MEDICATION WASTE Product Size: 4 mg Product Wasted: ___ mg Ketorolac 2015-06 No 4 days Memor ia 07-02 l 18:29: MEDICATION WASTE Product Size: 30 mg Product Wasted: ___ mg Oxycodone 2015-06 No Notes: Memori a 07-02 (Same as: l 18:29: 'Roxicodon e) Acetaminoph 2015-06 No 1,000 mg, M emoria en 07-02 Route: l 18:29: IVPB, Drug form: INJ, Q6H, Dosing Weight 67.727, kg, PRN Pain Score 1-3, Start date: 05/02/16 12:29:00 CARDIOLOGY COORDINATOR, Duration: 1 doses or times, Stop date: Limited # of times Labetalol 2015-06 No Notes: Memori a 07-02 (Same as: l 18:29: Normodyne, Trandate) Push over 2 minutes Give bolus over 2-3 minutes. Naloxone 2015-06 No Notes: Memoria 07-02 Same as l 18:29: Narcan Flumazenil 2015-06 No Notes: Memor ia 07-02 (Same as: l 18:29: Romazicon) Hydromorpho 2015-06 No Notes: Kobi thania ne 07-02 Same as l 18:29: Dilaudid POLYETHYLEN 2015-06 Yes 17 gm, PO, Memoria E GLYCOL 07-02 Daily, PRN l 3350 142 18:22: Constipati Her walters MG/ML Oral 00 on, X 31 Solution day, # 527 [Miralax] gm, 0 Refill(s) tramadol 2015-06 Yes 50 mg = 1 Kobi thania hydrochlori 07-02 tab, PO, l de 50 MG 18:22: Q6H, PRN Ana nn Oral Tablet 00 Pain, X 7 day, # 28 tab, 0 Refill(s) ondansetron 2015-06 No Route: IV, Memoria (ANES) 07-02 Drug form: l 17:54: INJ, ONCE, Stop date: 05/02/16 11:54:00 CARDIOLOGY COORDINATOR ePHEDrine 2015-06 No Route: IV, Me moria (ANES) 07-02 Drug form: l 17:14: INJ, ONCE, Stop date: 05/02/16 11:14:00 CARDIOLOGY COORDINATOR metoclopram 2015-06 No Route: IV, Memoria simeon (ANES) 07-02 Drug form: l 17:04: INJ, ONCE, Stop date: 05/02/16 11:04:00 CARDIOLOGY COORDINATOR famotidine 2015-06 No Route: IV, M emoria (ANES) 07-02 Drug form: l 17:04: INJ, ONCE, Stop date: 05/02/16 11:04:00 CARDIOLOGY COORDINATOR rocuronium 2015-06 No Route: IV, M emoria (ANES) 07-02 Drug form: l 17:04: INJ, ONCE, Stop date: 05/02/16 11:04:00 CARDIOLOGY COORDINATOR acetaminoph 2015-06 No Route: IV, Memoria en (ANES) 07-02 Drug form: l 17:04: INJ, ONCE, Stop date: 05/02/16 11:04:00 CARDIOLOGY COORDINATOR propofol 2015-06 No Route: IV, Mem oria (ANES) 07-02 Drug form: l 16:59: INJ, ONCE, Stop date: 05/02/16 10:59:00 CARDIOLOGY COORDINATOR succinylcho 2015-06 No Route: IV, Memoria line (ANES) 07-02 Drug form: l 16:59: INJ, ONCE, Stop date: 05/02/16 10:59:00 CARDIOLOGY COORDINATOR midazolam 2015-06 No Route: IV, Me moria (ANES) 07-02 Drug form: l 16:59: SOLN, ONCE, Stop date: 05/02/16 10:59:00 CARDIOLOGY COORDINATOR fentaNYL 2015-06 No Route: IV, Mem oria (ANES) 07-02 Drug form: l 16:59: INJ, ONCE, Stop date: 05/02/16 10:59:00 CARDIOLOGY COORDINATOR lidocaine 2015-06 No Route: IV, Me moria (ANES) 07-02 Drug form: l 16:59: INJ, ONCE, Stop date: 05/02/16 10:59:00 CARDIOLOGY COORDINATOR cefOXitin 2015-06 No Route: IV, Me moria (ANES) 07-02 Drug form: l 16:54: INJ, ONCE, Stop date: 05/02/16 10:54:00 CARDIOLOGY COORDINATOR LR 1000 mL 2015-06 No Route: IV, M emoria INJ (ANES) 07-02 Total l 16:19: Volume: Bruno 00 1,000, Start date: 05/02/16 10:19:00 CARDIOLOGY COORDINATOR, Stop date: 05/02/16 11:19:00 CARDIOLOGY COORDINATOR Neurontin 2015-06 No Notes: Memori a 07-02 (Same as: l 15:30: Neurontin) Bruno 00 Calcium 2015-06 No 1,000 mL, Memor ia Chloride 07-02 Rate: 25 l 0.0014 13:59: ml/hr, Bruno MEQ/ML / 00 Infuse Potassium over: 40 Chloride hr, Route: 0.004 IV, Dosing MEQ/ML / Weight Sodium 67.727 kg, Chloride Total 0.103 Volume: MEQ/ML / 1,000, Sodium Start Lactate date: 0.028 05/02/16 MEQ/ML 7:59:00 Injectable CARDIOLOGY COORDINATOR, Solution Duration: 30 day, Stop date: 06/01/16 7:58:00 CARDIOLOGY COORDINATOR Lovenox 2015-06 No Notes: Memoria 07-02 (Same as: l 12:00: Lovenox) Bruno 00 CeleBREX 2015-06 No Notes: Memoria 07-02 NSAID. l 12:00: Please Haris 00 check indication . Not for seizure. (Same As: CeleBREX) Mefoxin + 2015-06 No Notes: Memori a sodium 07-02 (Same As: l chloride 12:00: Mefoxin) Ana nn 0.9% INJ 00 100 mL MEDICATION WASTE Product Size: 2000 mg Product Wasted: ___ mg Neurontin 2015-06 No Notes: Memori a 1-28 (Same as: l 12:00: Neurontin) Bruno 00 Fish Oil 2015-06 Yes = 2 tab, Memor ia 1200 mg -21 PO, PRN, 0 l oral 17:54: Refill(s) Bruno capsule 00 biotin 1000 2015-06 Yes 2,000 Memor ia mcg oral -21 microgram l tablet 17:53: = 2 tab, Haris 00 PO, Daily, # 30 tab, 0 Refill(s) lansoprazol 2015-06 Yes 30 mg = 1 M emoria e 30 MG -21 cap, PO, l Enteric 17:52: Daily, 0 Gurwinder n Coated 00 Refill(s) Capsule [Prevacid] Aspirin 325 2015-06 Yes 325 mg = 1 Memoria MG Oral -21 tab, PO, l Tablet 17:52: BID, 0 Haris 00 Refill(s) latanoprost 2015-06 Yes 1 drp, Kobi thania 0.05 MG/ML 06-25 QPM, 0 l Ophthalmic 17:51: Refill(s) He rmann Solution 00 [Xalatan] Niacin SR 2015-06 Yes 500 mg = 1 Me moria 500 mg oral -21 cap, PO, l capsule, 17:51: Bedtime, 0 Her walters extended 00 Refill(s) release Fenofibrate 2015-06 Yes 145 mg = 1 Memoria 145 MG Oral -21 tab, PO, l Tablet 17:51: Daily, 0 Haris 00 Refill(s) acyclovir 2015-06 Yes 200 mg = 1 Me moria 200 mg oral -21 cap, PO, l capsule 17:50: TID, 0 Bruno 00 Refill(s) carisoprodo 2015-06 Yes 350 mg = 1 Memoria l 350 mg -21 tab, PO, l oral tablet 17:49: QID, 0 Herm rgicel 00 Refill(s) Estrogens, 2015-06 Yes 1.25 mg = Me moria Conjugated -21 1 tab, PO, l (JAIL) 1.25 17:48: Daily, 0 Her walters MG Oral 00 Refill(s) Tablet [Premarin] FLUoxetine 2015-06 Yes 20 mg = 1 Me moria 20 mg oral 1-21 tab, PO, l tablet 17:47: Daily, 0 Haris 00 Refill(s) isosorbide 2015-06 Yes 30 mg = 1 Me moria dinitrate 1-21 tab, PO, l 30 mg oral 17:46: Daily, 0 Her walters tablet 00 Refill(s) Hydrochloro 2015-06 Yes 1 tab, PO, Memoria thiazide 1-21 Daily, 0 l 12.5 MG / 17:46: Refill(s) Her romeo Lisinopril 00 20 MG Oral Tablet diethylprop 2015-06 Yes TK 1 T PO M D ion 25 mg 0-20 TID BEFORE Rojas rso tab 00:00: MEALS n 00 acyclovir acyclovir No acyclovir [facility] 200 mg 200 mg 200 mg da capsule capsule capsule Medica l TAKE ONE TAKE ONE TAKE ONE Vick up CAPSULE BY CAPSULE BY CAPSULE BY MOUTH EVERY MOUTH EVERY MOUTH 4 HOURS 4 HOURS EVERY 4 DURING DURING HOURS EPISODE EPISODE DURING EPISODE acyclovir 5 acyclovir 5 No acyclovir [place] % topical % topical 5 % da cream APPLY cream APPLY topical Medical TO THE TO THE cream Group AFFECTED AFFECTED APPLY TO AREA TWICE AREA TWICE THE DAILY DAILY AFFECTED NEEDED FOR NEEDED FOR AREA TWICE OUTBREAK OUTBREAK DAILY NEEDED FOR OUTBREAK amlodipine amlodipine No amlodipine [place] 5 mg tablet 5 mg tablet 5 mg d a Take 1 Take 1 tablet Medical tablet tablet Take 1 Group every day every day tablet by oral by oral every day route. route. by oral route. aspirin 325 aspirin 325 No 1 BID aspirin [facility] mg tablet mg tablet 325 mg da Take 1 Take 1 tablet Medical tablet tablet Take 1 Group twice a day twice a day tablet by oral by oral twice a route as route as day by directed directed oral route for 30 for 30 as days. days. directed for 30 days. atorvastati atorvastati No atorvastat [place] n 40 mg n 40 mg in 40 mg da tablet tablet tablet Medical Group Brilinta 90 Brilinta 90 No Brilinta [facility] mg tablet mg tablet 90 mg da tablet Medical Group carisoprodo carisoprodo No carisoprod [place] l 350 mg l 350 mg ol 350 mg da tablet TAKE tablet TAKE tablet Medical 1 TABLET BY 1 TABLET BY TAKE 1 Group MOUTH EVERY MOUTH EVERY TABLET BY 8 HOURS 8 HOURS MOUTH EVERY 8 HOURS chlorhexidi chlorhexidi No chlorhexid [place] ne ne ine da gluconate gluconate gluconate Medical 0.12 % 0.12 % 0.12 % Group mouthwash mouthwash mouthwash clopidogrel clopidogrel No clopidogre [place] 75 mg 75 mg l 75 mg da tablet tablet tablet Medical Group diclofenac diclofenac No diclofenac [place] 50 50 50 da mg-misopros mg-misopros mg-misopro Medical ashlee 200 mcg ashlee 200 mcg stol 200 Group tablet,imme tablet,imme mcg d.and d.and tablet,imm delayed delayed ed.and release release delayed TAKE 1 TAKE 1 release TABLET BY TABLET BY TAKE 1 MOUTH THREE MOUTH THREE TABLET BY TIMES DAILY TIMES DAILY MOUTH THREE TIMES DAILY dicyclomine dicyclomine No dicyclomin [place] 10 mg 10 mg e 10 mg da capsule capsule capsule Medica l Group diethylprop diethylprop No diethylpro [place] ion 25 mg ion 25 mg pion 25 mg da tablet Take tablet Take tablet Medical 1 tablet 3 1 tablet 3 Take 1 G roup times a day times a day tablet 3 by oral by oral times a route route day by before before oral route meals. meals. before meals. famotidine famotidine No famotidine [facility] 40 mg 40 mg 40 mg da tablet TAKE tablet TAKE tablet Medical 1 TABLET BY 1 TABLET BY TAKE 1 Group MOUTH EVERY MOUTH EVERY TABLET BY DAY DAY MOUTH EVERY DAY fenofibrate fenofibrate No fenofibrat [place] nanocrystal nanocrystal e d a lized 145 lized 145 nanocrysta Medical mg tablet mg tablet llized 145 Group TAKE 1 TAKE 1 mg tablet TABLET BY TABLET BY TAKE 1 MOUTH EVERY MOUTH EVERY TABLET BY DAY DAY MOUTH EVERY DAY fluocinolon fluocinolon No fluocinolo [place] e 0.01 % e 0.01 % ne 0.01 % da shampoo shampoo shampoo Medica l APPLY 15 - APPLY 15 - APPLY 15 - Group 30 30 30 MILLILITERS MILLILITERS MILLILITER BY TOPICAL BY TOPICAL S BY ROUTE ONCE ROUTE ONCE TOPICAL DAILY WORK DAILY WORK ROUTE ONCE INTO A INTO A DAILY WORK LATHER AND LATHER AND INTO A ALLOW TO ALLOW TO LATHER AND REMAIN ON REMAIN ON ALLOW TO SCALP FOR 5 SCALP FOR 5 REMAIN ON MINUTES MINUTES SCALP FOR THEN RINSE THEN RINSE 5 MINUTES OFF OFF THEN RINSE OFF fluocinolon fluocinolon No fluocinolo [place] e 0.01 % e 0.01 % ne 0.01 % da topical topical topical Medica l body oil body oil body oil Vick up APPLY TWICE APPLY TWICE APPLY DAILY. DAILY. TWICE DAILY. fluoxetine fluoxetine No fluoxetine [facility] 20 mg 20 mg 20 mg da capsule capsule capsule Medica l TAKE 1 TAKE 1 TAKE 1 Group CAPSULE BY CAPSULE BY CAPSULE BY MOUTH EVERY MOUTH EVERY MOUTH DAY DAY EVERY DAY gemfibrozil gemfibrozil No gemfibrozi [facility] 600 mg 600 mg l 600 mg da tablet TAKE tablet TAKE tablet Medical 1 TABLET BY 1 TABLET BY TAKE 1 Group MOUTH TWICE MOUTH TWICE TABLET BY DAILY DAILY MOUTH TWICE DAILY hydroxyzine hydroxyzine No hydroxyzin [facility] HCl 50 mg HCl 50 mg e HCl 50 d a tablet TAKE tablet TAKE mg tablet Medical 2 TABLETS 2 TABLETS TAKE 2 Vick up BY MOUTH BY MOUTH TABLETS BY TWICE DAILY TWICE DAILY MOUTH NEEDED NEEDED TWICE DAILY NEEDED hydroxyzine hydroxyzine No hydroxyzin [facility] pamoate 50 pamoate 50 e pamoate da mg capsule mg capsule 50 mg Me dical TAKE 1 TAKE 1 capsule Group CAPSULE BY CAPSULE BY TAKE 1 MOUTH TWICE MOUTH TWICE CAPSULE BY DAILY. DAILY. MOUTH TWICE DAILY. ibuprofen ibuprofen No ibuprofen [facility] 600 mg 600 mg 600 mg da tablet tablet tablet Medical Group iron 20mg iron 20mg No iron 20mg [facility] daily daily daily da [facility] isosorbide isosorbide No isosorbide [facility] mononitrate mononitrate mononitrat da ER 30 mg ER 30 mg e ER 30 mg M edical tablet,exte tablet,exte tablet,ext Group nded nded ended release 24 release 24 release 24 hr TAKE 1 hr TAKE 1 hr TAKE 1 TABLET BY TABLET BY TABLET BY MOUTH EVERY MOUTH EVERY MOUTH DAY DAY EVERY DAY lansoprazol lansoprazol No lansoprazo [facility] e 30 mg e 30 mg le 30 mg da capsule,del capsule,del capsule,de Medical ayed ayed layed Group release release release TAKE 1 TAKE 1 TAKE 1 CAPSULE BY CAPSULE BY CAPSULE BY MOUTH EVERY MOUTH EVERY MOUTH DAY DAY EVERY DAY levocetiriz levocetiriz No levocetiri [facility] ine 5 mg ine 5 mg zine 5 mg da tablet Take tablet Take tablet Medical 1 tablet 1 tablet Take 1 Group every day every day tablet by oral by oral every day route. route. by oral route. lisinopril lisinopril No lisinopril [facility] 20 20 20 da mg-hydrochl mg-hydrochl mg-hydroch Medical orothiazide orothiazide lorothiazi Group 12.5 mg 12.5 mg de 12.5 mg tablet TAKE tablet TAKE tablet 1 TABLET BY 1 TABLET BY TAKE 1 MOUTH EVERY MOUTH EVERY TABLET BY MORNING AND MORNING AND MOUTH 1 TABLET AT 1 TABLET AT EVERY BEDTIME. BEDTIME. MORNING AND 1 TABLET AT BEDTIME. Lumigan Lumigan No Lumigan [facility] 0.01 % eye 0.01 % eye 0.01 % eye da drops drops drops Medical Group omeprazole omeprazole No omeprazole [facility] 40 mg 40 mg 40 mg da capsule,del capsule,del capsule,de Medical ayed ayed layed Group release release release Take 1 Take 1 Take 1 capsule capsule capsule every day every day every day by oral by oral by oral route. route. route. orphenadrin orphenadrin No orphenadri [facility] e citrate e citrate ne citrate da ER 100 mg ER 100 mg ER 100 mg Medical tablet,exte tablet,exte tablet,ext Group nded nded ended release release release prasugrel prasugrel No prasugrel [facility] 10 mg 10 mg 10 mg da tablet Take tablet Take tablet Medical by oral by oral Take by Group route for route for oral route 90 days. 90 days. for 90 days. Premarin Premarin No Premarin [facility] 1.25 mg 1.25 mg 1.25 mg da tablet TAKE tablet TAKE tablet Medical 1 TABLET BY 1 TABLET BY TAKE 1 Group MOUTH EVERY MOUTH EVERY TABLET BY DAY DAY MOUTH EVERY DAY Restasis Restasis No Restasis [facility] 0.05 % eye 0.05 % eye 0.05 % eye da drops in a drops in a drops in a Medical dropperette dropperette dropperett Group e tramadol 50 tramadol 50 No tramadol [facility] mg tablet mg tablet 50 mg da TAKE 1 TAKE 1 tablet Medical TABLET BY TABLET BY TAKE 1 Vick up MOUTH twice MOUTH twice TABLET BY daily take daily take MOUTH as needed as needed twice for pain for pain daily take as needed for pain Vascepa 1 Vascepa 1 No Vascepa 1 [facility] gram gram gram da capsule capsule capsule Medica l TAKE 2 TAKE 2 TAKE 2 Group CAPSULES BY CAPSULES BY CAPSULES MOUTH TWICE MOUTH TWICE BY MOUTH DAILY DAILY TWICE DAILY Xalatan Xalatan No Xalatan [facility] 0.005 % eye 0.005 % eye 0.005 % da drops drops eye drops Medical Group Immunizations Ordered Immunization Filled Immunization Date Status Commen ts Source Name Name Tdap Tdap 2015-10-02 Completed [place] 15:44:00 [facility] influenza, high dose influenza, high dose 2014-04-16 Completed [place] seasonal seasonal 00:00:00 [facility] Group pneumococcal pneumococcal 2013-04-02 Completed [place] polysaccharide PPV23 polysaccharide PPV23 18:27:10 Medical Group influenza, seasonal, influenza, seasonal, 2013-04-02 Completed [place] injectable injectable 18:27:10 [facility] Vital Signs Vital Name Observation Time Observation Value Comments Source Height 2020-02-20 00:00:00 61 [in_i] [facility] BMI (Body Mass 2020-02-20 00:00:00 34[facility]8 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 Body Weight 2020-02-20 00:00:00 2944 [oz_av] [facility] Height 2019-12-11 00:00:00 61 [in_i] [facility] BMI (Body Mass 2019-12-11 00:00:00 34.8 kg/m2 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 Index) Group Body Weight 2019-12-11 00:00:00 2944 [oz_av] [facility] BP Diastolic 2019-07-18 00:00:00 72 mm[Hg] [facility] Height 2019-07-18 00:00:00 61 [in_i] [facility] BMI (Body Mass 2019-07-18 00:00:00 34.8 kg/m2 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 Index) Group BP Systolic 2019-07-18 00:00:00 138 mm[Hg] [facility] Body Weight 2019-07-18 00:00:00 184 [lb_av] [facility] BP Diastolic 2019-06-11 00:00:00 72 mm[Hg] [facility] Height 2019-06-11 00:00:00 61 [in_i] [facility] BMI (Body Mass 2019-06-11 00:00:00 34.4 kg/m2 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 Index) Group BP Systolic 2019-06-11 00:00:00 138 mm[Hg] [facility] Body Weight 2019-06-11 00:00:00 182 [lb_av] [facility] BP Diastolic 2019-05-22 00:00:00 70 mm[Hg] [facility] Height 2019-05-22 00:00:00 61 [in_i] [facility] BMI (Body Mass 2019-05-22 00:00:00 34.4 kg/m2 [facility] Group BP Systolic 2019-05-22 00:00:00 141 mm[Hg] [facility] Body Weight 2019-05-22 00:00:00 2912 [oz_av] [facility] BP Diastolic 2019-05-07 00:00:00 71 mm[Hg] [facility] Height 2019-05-07 00:00:00 61 [in_i] [facility] BMI (Body Mass 2019-05-07 00:00:00 34.4 kg/m2 [facility]) Group BP Systolic 2019-05-07 00:00:00 141 mm[Hg] [facility] Body Weight 2019-05-07 00:00:00 2912 [oz_av] [facility] BP Diastolic 2019-03-26 00:00:00 69 mm[Hg] [facility] Height 2019-03-26 00:00:00 61 [in_i] [facility] BMI (Body Mass 2019-03-26 00:00:00 33.6 kg/m2 [facility]) Group BP Systolic 2019-03-26 00:00:00 138 mm[Hg] [facility] Body Weight 2019-03-26 00:00:00 2848 [oz_av] [facility] BP Diastolic 2018-12-28 00:00:00 74 mm[Hg] [facility] Height 2018-12-28 00:00:00 61 [in_i] [facility] BMI (Body Mass 2018-12-28 00:00:00 33.8 kg/m2 [facility]) Group BP Systolic 2018-12-28 00:00:00 135 mm[Hg] [facility] Body Weight 2018-12-28 00:00:00 2864 [oz_av] [facility] BP Diastolic 2018-05-31 00:00:00 71 mm[Hg] [facility] Height 2018-05-31 00:00:00 61 [in_i] [facility] BMI (Body Mass 2018-05-31 00:00:00 35 kg/m2 [facility] 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 Index) Group BP Systolic 2018-05-31 00:00:00 133 mm[Hg] [facility] Body Weight 2018-05-31 00:00:00 2960 [oz_av] [facility] Systolic blood 2019-10-04 19:26:46 135 mm[Hg] pressure Diastolic blood 2019-10-04 19:26:46 60 mm[Hg] MD Nielsen derson pressure Heart rate 2019-10-04 19:26:46 87 /min MD Radhames betts Body temperature 2019-10-04 19:26:46 36.39 Leni MD Cheyenne ledezmarson Respiratory rate 2019-10-04 19:26:46 16 /min MD Cheyenne ledezmarson Body weight 2019-10-04 19:26:46 83.7 kg MD Ricci son BMI 2019-10-04 19:26:46 35.76 kg/m2 MD Radhames betts Oxygen saturation in 2019-10-04 19:26:46 97 /min MD Cope Arterial blood by Pulse oximetry Systolic (mm Hg) 2016-05-31 14:00:00 Kobi rial Haris Diastolic (mm Hg) 2016-05-31 14:00:00 Mem [facility] Respitory Rate 2016-05-31 14:00:00 [facility] Temperature Oral (F) 2016-05-31 14:00:00 98.4 F [facility] Weight 2016-05-31 13:20:00 [facility] BMI Calculated 2016-05-31 13:20:00 [facility] Height 2016-05-31 13:20:00 154.94 cm [facility] Respitory Rate 2016-05-02 20:45:00 [facility] Systolic (mm Hg) 2016-05-02 20:45:00 Kobi rial Haris Diastolic (mm Hg) 2016-05-02 20:45:00 Mem o[facility] Respitory Rate 2016-05-02 20:15:00 Memori al [facility] Systolic (mm Hg) 2016-05-02 20:15:00 Kobi bernard Har[facility] Diastolic (mm Hg) 2016-05-02 20:15:00 Mem [facility] Systolic (mm Hg) 2016-05-02 19:45:00 Kobi thanial [facility] Diastolic (mm Hg) 2016-05-02 19:45:00 Mem o[facility] Respitory Rate 2016-05-02 19:45:00 Memori al [facility] Heart Rate 2016-05-02 14:45:00 [facility] Weight 2016-05-02 14:23:00 [facility] BMI Calculated 2016-05-02 14:23:00 [facility] Height 2016-04-25 17:38:00 154.94 cm [facility] Procedures Procedure Date / Time Performing Source Performed Clinician MRI LUMBAR SPINE WO CONTRAST 2020-03-24 Chase Hyde 17:19:58 Jose J Scientologist XR LUMBAR SPINE COMPLETE 4+ VW 2020-03-24 Chsae Hyde 14:02:19 Jose J Scientologist XR, lumbar spine 2020-02-20 [place] 00:00:00 [facility] Group MRI, lumbar spine, w/o contrast 2020-02-20 [place] 00:00:[address] CHEST ABDOMEN PELVIS W CONTRAST 2019-10-04 Sun Chandler MD LYMPHOMA 18:48:47 J. COMPLETE BLOOD COUNT W/ 2019-10-04 Mara Chandler MD derson DIFFERENTIAL 13:41:00 J. COMPREHENSIVE METABOLIC PANEL 2019-10-04 Mara Chandler MD 13:41:00 J. LACTATE DEHYDROGENASE 2019-10-04 Mara Chandler MD Rojas rson 13:41:00 J. URIC ACID 2019-10-04 Mara Chandler MD 13:41:00 J. Results CBC 2019-10-04 Mara Chandler MD 13:41:00 J. MANUAL DIFFERENTIAL 2019-10-04 Mara Chandler MD Camilo on 13:41:00 J. GLUCOSE LEVEL 2019-10-04 Mara Chandler MD 13:41:00 J. BLOOD UREA NITROGEN 2019-10-04 Mara Chandler MD on 13:41:00 J. ELECTROLYTE PANEL 2019-10-04 Mara Chandler MD 13:41:00 J. SERUM CREATININE 2019-10-04 Mara Chandler MD 13:41:00 J. .GLOMERULAR FILTRATION RATE 2019-10-04 Mara Chandler 13:41:00 J. CALCIUM LEVEL TOTAL 2019-10-04 Mara Chandler MD on 13:41:00 J. ALBUMIN LEVEL 2019-10-04 Mara Chandler MD 13:41:00 J. ALKALINE PHOSPHATASE 2019-10-04 Mara Chandler MD Radhames son 13:41:00 J. ALANINE AMINOTRANSFERASE 2019-10-04 Mara Chandler MD A nderson 13:41:00 J. ASPARTATE AMINOTRANSFERASE 2019-10-04 Mara Chandler MD 13:41:00 J. TOTAL PROTEIN 2019-10-04 Mara Chandler MD 13:41:00 J. FRACTIONATED BILIRUBIN 2019-10-04 Mara Chandler MD And erson 13:41:00 J. unlisted imaging order 2019-06-11 [place] 00:00:00 [facility] Group unlisted imaging order 2019-05-07 [place] 00:00:00 [facility] unlisted imaging order 2018-12-28 [place] 00:00:[facility]ar[facility] [facility] - procedure 2005-06-05 [facility] 00:00:00 Hysterectomy 1988-06-05 [facility] 00:00:00 Appendectomy 1979-06-05 [facility] 00:00:00 Breast implantation 1974-06-05 [facility] 00:00:00 Miscellaneous operations 1960-06-05 Erasmo Carballo 00:00:00 Appendectomy [facility] Cataract Surgery [facility] Hyste[facility] Esophagogastroduodenoscopy (Surg) [facility] Breast biopsy and related Joe Kong procedures Laparoscopy<sup>1</sup> [facility] Plan of Care Planned Activity Planned Date Details Comments Source Future Scheduled 2020-01-04 INFLUENZA VACCINE [place] Scientologist Test 00:00:00 [code = INFLUENZA VACCINE] Future Scheduled 2017-01-05 65+ PNEUMOCOCCAL Noel Scientologist Test 00:00:00 VACCINE (1 of 1 - PPSV23) [code = 65+ PNEUMOCOCCAL VACCINE (1 of 1 - PPSV23)] Future Scheduled 2002-01-05 BREAST CANCER [facility] thodist Test 00:00:00 SCREENING [code = BREAST CANCER SCREENING] Future Scheduled 2002-01-05 COLONOSCOPY SCREENING Ho josette Scientologist Test 00:00:00 [code = COLONOSCOPY SCREENING] Future Scheduled 2002-01-05 SHINGLES VACCINES (#1) H lester Scientologist Test 00:00:00 [code = SHINGLES VACCINES (#1)] Encounters Start End Encounter Admission Attending Care Care Encounter Source Date/Time Date/Time Type Type Clinicians Facility Department ID 2020-04-06 2020-04-06 Outpatient [facility] [id number] 00:00:00 00:00:00 PATRICIA [address] 2020-03-24 2020-03-24 Outpatient [facility] [id number] 00:00:00 00:00:00 PATRICIA, [address] 2020-03-24 2020-03-24 Outpatient [facility] [id number] 00:00:00 00:00:00 PATRICIA, [address] 2020-03-24 2020-03-24 Outpatient [facility] [id number] 00:00:00 00:00:00 PATRICIA [address] 2020-02-20 2020-02-20 Elpidio [place] - [id number] M [facility] 00:00:00 00:00:00 MD Leno: [facility] [address] [place] [address] , Ph. 2019-12-11 2019-12-11 Elpidio [place] - [id number] M [facility] 00:00:00 00:00:00 MD Leno: [facility] [address] [place] [address] , Ph. 2019-10-29 2019-10-29 Elpidio [place] - [id number] M [facility] 00:00:00 00:00:00 MD Leno: [address], [facility], [facility] [place] [place] [address] , Ph. 2019-07-18 2019-07-18 Simón [place] - [id number] M [facility] 00:00:00 00:00:00 Agus Contreras MD: [facility], [place] [address] , Ph. [phone] 2019-06-11 2019-06-11 Simón [place] - [id number] M [facility] 00:00:00 00:00:00 Agus Contreras MD: [facility], [place] [address] , Ph. [phone] 2019-05-22 2019-05-22 Elpidio [place] - [id number] M [facility] 00:00:00 00:00:00 MD Leno: [address], [facility], [facility] [place] [address] , Ph. 2019-05-07 2019-05-07 Elpidio [place] - [id number] M [facility] 00:00:00 00:00:00 MD Leno: [address], [facility] [place] [address] , Ph. 2019-03-26 2019-03-26 Elpidio [place] - [id number] M [facility] 00:00:00 00:00:00 MD Leno: [address], [facility], [facility] [place] [address] , Ph. 2018-12-28 2018-12-28 Elpidio Onofre [facility] [place] - [id number] M [facility] 00:00:00 00:00:00 MD Leno: [address], [place] - [address], [facility] [place] [address] , Ph. 2018-05-31 2018-05-31 Elpidio Onofre MM [place] - [id number] M [facility] 00:00:00 00:00:00 MD Leno: [address], [place] - [address], [facility] [place] [address] , Ph. 2016-05-31 2016-05-31 Outpatient Esau SL S [id number] 06:55:00 23:59:00 Tee 01 2016-05-02 2016-05-02 Outpatient Navid [facility] SL [id number] 07:55:11 15:05:00 Shinil 00 [facility] Results Test Description Test Time Test Comments Results Result Sour e Comments MRI Lumbar Spine 2020-03-06 Hm Interface, [place] Contrast 0 Radiology Results Method ist 17:37:13 03/24/2020 5:40 PM CDTExam: MRI of the lumbar spine without contrastHistory: Lumbar facet joint painComparison studies: NoneTechnique: Multiplanar multisequence MRI of the lumbar spine.Contrast: NoneComplications: NoneFINDINGS:Number of non-rib bearing lumbar vertebral bodies: 5.Alignment: Normal lordosis.No scoliosis.Soft tissues: No signal abnormalities.Poste rior paraspinal muscles: Fatty infiltration of the paraspinal musculature secondary to mild atrophy.Conus medullaris:Normal, ends at L1-L2.Cauda equina: No masses or arachnoiditis. Linear fat deposition at the filum terminale.Vertebrae : No fractures, infection or neoplasm.Degenerati ve changes:L1-L2: Disc degeneration with decreased intervertebral space and loss of T2 signal. Mild disc bulge with patent canal and foramina.L2-L3: Disc degeneration with loss of T2 signal. Patent canal and foramina.L3-L4:Disc degeneration with loss of T2 signal. Diffuse disc bulge and mild facet hypertrophy results in no significant canal stenosis.L4-L5: Disc degeneration with loss of T2 signal. Diffuse disc bulge with superimposed right subarticular disc protrusion, moderate bilateral facet hypertrophy and ligamentum flavum buckling results in severe narrowing of the right subarticular recess, mild canal stenosis and mild bilateral foraminal narrowing. Possible impingement on the descending L5 nerve root.Fluid at the bilateral facet joints secondary to synovitis.L5-S1: Disc degeneration with loss of T2 signal. Mild diffuse disc bulge and mild facet hypertrophy results in no significant canal stenosis.Sacrum and coccyx:Symmetric. No signal abnormalities.IMPRE SSION:1. Right subarticular disc protrusion at L4-L5 obliterates the ipsilateral recess, with possible impingement on the descending L5 nerve root the right side.2. Moderate facet hypertrophy at L4-L5 with synovitis changes. Other degenerative changes without significant (moderate or severe) canal stenosis or foraminal narrowing.. CT Chest Abdomen No evidence of MD Anatoliy Pelvis with 1 active lymphoma Contrast Lymphoma 20:52:47 disease. This document was created using a voice recognition transcribing system. Incorrect words or phrases may have been missed during proof reading. Please interpret accordingly. I personally reviewed these image(s) along with the resident's/fellow's interpretations, certify that if a procedure was performed I was physically present, and agree with the final report.Interface, Radiology Results In - 10/04/2019 3:54 PM CDTFULL RESULT:Examination: CT CHEST ABDOMEN PELVIS W CONTRAST LYMPHOMA, 10/04/2019 1:48 PMClinical History: Follicular lymphoma grade I of lymph nodes of multiple sitesIndication: evaluate for progressive lymphomaComparison: Ct dated 06/01/2017 Technique: CT of the chest, abdomen, and pelvis was performed with intravenous contrast.Findings: Chest:No suspicious lung nodules, masses or consolidation.No pleural or pericardial effusion.No pathologically-enla rged hilar, mediastinal or axillary lymphadenopathy.The heart and great vessels are within normal limits. Coronary artery calcifications.Abdo men and pelvis: No pathologically-enla rged abdominal or pelvic lymph nodes.Diffuse hepatic steatosis. No focal liver mass or intrahepatic biliary dilatation.The spleen, gallbladder, pancreas, adrenal glands, and kidneys appear essentially unremarkable. The paz mesentery is most consistent with sequela of treated disease.The bowel is unobstructed. No ascites.The bladder is without focal wall thickening.No suspicious osseous lesionsIMPRESSION:N o evidence of active lymphoma disease.This document was created using a voice recognition transcribing system. Incorrect words or phrases may have been missed during proof reading. Please interpret accordingly.I personally reviewed these image(s) along with the resident's/fellow's interpretations, certify that if a procedure was performed I was physically present, and agree with the final report. Fractionated Bilirubin 2019-10-04 14:17:53 Test Item Value Reference Range Interpretation Comme nts Bili Total (test code = 5096) 0.4 mg/dL <=1.2 Indocyanine Green (ICG) may cause falsely elevate d bilirubin results. Total and direc t bilirubin must not be measured fro m samples containing indocyanine gre en. False elevation of total biliru bin can be seen in patients with I gG concentrations above 28 g/L. Bili Direct (test code = 5094) 0.2 mg/dL <=0.3 Indocyanine Green (ICG) may cause falsely elevate d bilirubin results. Total and direc t bilirubin must not be measured fro m samples containing indocyanine gre en. Bili Indirect (test code = 0.2 mg/dL 0-0.9 5095) MD CopeGlomerular Filtration [id number] 14:17:51 Test Item Value Reference Range Interpretation Comments eGFR-AA (test 87 >=60 mL/min/1.73 sq. Normal eGFR: >= 60 code = 8062) m mL/min/1.73 m2N ote: The eGFR is calcula chiqui using the CKD-EPI equ ation. The eGFR declines w ith age. eGFR <60 mL/min /1.73 m2 is considered as " decreased". This equation s hould only be used for pat ients 18 and older. Acco rding to the National Ki dney Foundation's Ki dney Disease Outcome Quality Initiative (KDO QI) classification and 2012 Kidney Disease Improving Global Outcomes (KDIGO) Clinical Practi ce Guideline, the stage of CKD should be c ategorized based on estima chiqui GFR. Stage Descripti on GFR mL/min/1.73 m21 Normal or high GFR >=902 Mildly de creased GFR 60-893a Mildly to moder ately decreased GFR 45-593b Moderately to s everely decreased GFR 30-444 Severely decrea sed GFR 15-295 Kidney failure <15 eGFR-BRYAN (test 75 >=60 mL/min/1.73 sq. Vonnie l eGFR: >= 60 code = 8063) m mL/min/1.73 m2N ote: The eGFR is calcula chiqui using the CKD-EPI equ ation. The eGFR declines w ith age. eGFR <60 mL/min /1.73 m2 is considered as " decreased". This equation s hould only be used for pat ients 18 and older. Acco rding to the National dney Foundation's dney Disease Outcome Quality Initiative (KDO QI) classification and 2012 Kidney Disease Improving Global Outcomes (KDIGO) Clinical Practi ce Guideline, the stage of CKD should be c ategorized based on estima chiqui GFR. Stage Descripti on GFR mL/min/1.73 m21 Normal or high GFR >=902 Mildly de creased GFR 60-893a Mildly to moder ately decreased GFR 45-593b Moderately to s everely decreased GFR 30-444 Severely decrea sed GFR 15-295 Kidney failure <15 MD CopeUric [id number] 14:17:50 Test Item Value Reference Range Interpretation Comments Uric Acid (test code = 7955) 4.1 mg/dL 2.4-5.7 MD [id number] 14:17:49 Test Item Value Reference Range Interpretation Comments LDH (test code = 6111) 216 U/L 135-214 H Resul ts greater than 1800 U/L may no t be reliable due to matrix effect w ith extended diluti on as it exceeds the customer care assistant s recommended l imit. Caution should be exercised when interpreting huitron ch values and done in conjunction wit h clinical contex t. Lab Interpretation (test Abnormal code = 74956-8) MD CopeTotal [id number] 14:17:48 Test Item Value Reference Range Interpretation Comments Total Protein (test code = 7649) 7.4 6.4- 8.3 gm/dL MD CopeAlkaline [id number] 14:17:47 Test Item Value Reference Range Interpretation Comments Alk Phos (test code = 4768) 36 U/L 35-104 MD CopeCalcium [id number] 14:17:46 Test Item Value Reference Range Interpretation Comments Calcium Lvl (test code = 5258) 9.6 mg/dL 8.4-10.2 MD CopeAlbumin [id number] 14:17:45 Test Item Value Reference Range Interpretation Comments Albumin Lvl (test code = 4763) 4.7 3.5- 5.2 gm/dL MD [id number] 14:17:44 Test Item Value Reference Range Interpretation Comments ALT (test code = 4705) 31 U/L <=33 MD CopeAspartate [id number] 14:17:43 Test Item Value Reference Range Interpretation Comments AST (test code = 4731) 24 U/L <=32 MD [id number] 14:17:42 Test Item Value Reference Range Interpretation Comments BUN (test code = 5055) 18 mg/dL 6-23 MD CopeElectrolyte [id number] 14:17:41 Test Item Value Reference Range Interpretation Comments Sodium Lvl (test code = 7355) 138 136- 145 mEq/L Potassium Lvl (test code = 6854) 4.3 3.5- 5.1 mEq/L Chloride (test code = 5279) 98 98- 107 mEq/L CO2 (test code = 5227) 28 22- 29 mEq/L Anion Gap (test code = 9325) 12 4- 14 mEq/L MD CopeGlucose [id number] 14:17:39 Test Item Value Reference Range Interpretation Comments Glucose Level (test 99 mg/dL 70-99 Referenc e range is valid code = 5699) for fasting spe cimens only. Guideline s established by the [employer]eless [employer] es [employer] [place] (Standards of M edical Care in Diabete s 2016. Diabetes Care 2 016; 39: S13-22) are julius t a fasting glucose of greater than or equal to 126 mg/dL or a random glucose greater than or equal to 200 mg /dL with symptoms, that are confirmed by re peat testing on a di fferent day, meet the c riteria for diabetes me marty. MD Cope.Serum [id number] 14:17:38 Test Item Value Reference Range Interpretation Comments Creatinine (test code = 5399) 0.81 mg/dL 0.51-0.95 MD CopeXoudnivuPumawgazvuew5657-12-23 13:53:36 Test Item Value Reference Range Interpretation Comments Neutrophil % (test code = 43.1 % 42-66 6491) Lymphocyte % (test code = 41.9 % 24-44 6194) Monocyte % (test code = 9.1 % 2-7 H 6422) Eosinophil % (test code = 4.8 % 1-4 H 5520) Basophil % (test code = 0.7 % 0-1 5068) IGRE % (test code = 5958) 0.4 % 0-0.4 IG RE % count includes Metamyelocytes, Myelocytes, and Promyelocytes. Neutrophil Abs (test code 3.03 K/uL 1.7-7.3 = 6492) Lymphocyte Abs (test code 2.95 K/uL 1-4.8 = 6195) Monocyte Abs (test code = 0.64 K/uL 0.08-0.7 6423) Eosinophil Abs (test code 0.34 K/uL 0.04-0.4 = 5521) Basophil Abs (test code = 0.05 K/uL 0-0.1 5069) IG Abs (test code = 5954) 0.03 K/uL 0-0.04 Lab Interpretation (test Abnormal code = 63270-7) MD Cope.[id number] 13:53:33 Test Item Value Reference Range Interpretation Comments WBC (test code = 8034) 7.0 K/uL 4-11 RBC (test code = 6932) 4.96 4.00- 5.50 M/uL Hgb (test code = 5898) 11.6 12.0- 16.0 gm/dL L Hct (test code = 5860) 38.7 % 37-47 MCV (test code = 6222) 78 fL 82-98 L MCH (test code = 6220) 23.4 pg 27-31 L MCHC (test code = 6221) 30.0 31.0- 36.0 gm/dL L RDW-SD (test code = 45.9 fL 35.1-46.3 6972) RDW-CV (test code = 16.3 % 12-15.5 H 6971) Platelet count (test 303 K/uL 140-440 code = 6832) MPV (test code = 6282) 9.4 fL 4-10.4 INRBC (test code = 0.0 % <=0.0 The INRBC (instrument 5974) NRBC) value ref lects the enumeration of nucleated red b lood cells contained in a 200uL sampleof whole blood analyzed by the instrument. Thi s value maydiffer from the NRBC value reported in a m anual differential,wh ich is based on a 100 cell differential. Lab Interpretation Abnormal (test code = 44557-4) [facility] Differential panel - [id number] 07:27:00 Test Item Value Reference Range Interpretation Comments white blood count (test code = 5.6 K/uL 4.0-11.5 white blood count) red blood count (test code = red 4.54 M/uL 3.80-5.20 blood count) hemoglobin (test code = 10.5 g/dL 10.5-15.7 hemoglobin) hematocrit (test code = 34.3 % 34.0-50.0 hematocrit) Erythrocyte mean corpuscular 75.6 fL 86-100 L volume [Entitic volume] (test code = 80283-5) mean corpuscular hemoglobin (test 23.1 pg 26.2-33.4 L code = mean corpuscular hemoglobin) mean corpuscular HGB conc (test 30.6 g/dL 30-34 code = mean corpuscular HGB conc) red cell distribution width (test 15.2 % 12.0-15.5 code = red cell distribution width) platelet count (test code = 275 K/uL 165-450 platelet count) mean platelet volume (test code = 9.1 fL 9.4-12.6 L mean platelet volume) Neutrophils.segmented/100 51.9 % 44.4-80.1 leukocytes in Blood (test code = 03224-0) Granulocytes Immature [#/volume] 0.0 K/uL 0.0-0.03 in Blood (test code = 70329-4) lymphocyte% (test code = 37.5 % 10.0-50.0 lymphocyte%) mono % (test code = mono %) 6.9 % 3.6-12.0 eos % (test code = eos %) 3.0 % 0.0-5.4 Basophils/100 leukocytes in 0.5 % 0.1-1.2 Unspecified specimen (test code = 98852-2) Neutrophils.band form [#/volume] 2.92 K/uL 1.56-6.13 in Blood (test code = 50128-7) Lymphocytes [#/volume] in 2.1 K/uL 1.18-3.74 Unspecified specimen by Automated count (test code = 43779-2) mono # (test code = mono #) 0.39 K/uL 0.24-0.86 eos # (test code = eos #) 0.17 K/uL 0.04-0.36 basophil # (test code = basophil 0.03 K/uL 0.01-0.08 #) NRBC% (test code = NRBC%) 0 /100 WBC 0-0.2 NRBC# (test code = NRBC#) 0 K/uL [facility], [id number] 07:27:00 NeutrophilsBandLymphocyteAtypical LymphMonocyteEosinophilMetamyelocyteMyelocytePlatelet EstimatePlatelet MorphologyDifferential comment-[facility]iComprehensive metabolic 2000 panel - Serum or [id number] 07:27:00 Test Item Value Reference Range Interpretation Comments Glucose [Mass/volume] in Serum or 141 mg/dL 82-115 H Plasma (test code = 2345-7) Urea nitrogen [Mass/volume] in 11 mg/dL 8-23 Serum or Plasma (test code = 3094-0) osmolality calculated,serum (test 274 mOsm/kg 280-300 L code = osmolality calculated,serum) creatinine (test code = 0.6 mg/dL 0.50-0.90 creatinine) glomerular filtration rate (test >60.00 code = glomerular filtration rate) Urea nitrogen/Creatinine [Mass 18.3 12-20 Ratio] in Serum or Plasma (test code = 3097-3) sodium level (test code = sodium 136 mmol/L 135-145 level) potassium level (test code = 3.6 mmol/L 3.5-5.2 potassium level) chloride level (test code = 96 mmol/L 98-108 L chloride level) CO2 (test code = CO2) 26 mmol/L 21-32 anion gap (test code = anion gap) 17.6 mEq/L 12-20 calcium level (test code = 8.9 mg/dL 8.8-10.2 calcium level) total protein (test code = total 6.5 g/dL 6.6-8.7 L protein) albumin (test code = albumin) 4.1 g/dL 3.5-5.2 globulin (test code = globulin) 2.4 gm/dL A/G ratio (test code = A/G ratio) 1.7 >1.0 bilirubin,total (test code = <0.3 0.0-1.2 bilirubin,total) AST/SGOT (test code = AST/SGOT) 20 U/L 15-32 Alanine aminotransferase 23 U/L 0-33 [Enzymatic activity/volume] in Serum or Plasma (test code = 1742-6) Alkaline phosphatase [Enzymatic 38 U/L 35-105 activity/volume] in Serum or Plasma (test code = 6768-6) [facility]iopon I.cardiac [Mass/volume] in [id number] 07:27:00 Test Item Value Reference Range Interpretation Comments cardiac troponin I (test code = cardiac <0.30 0.0-0.5 troponin I) [facility] CenterCreat[facility] kinase.MB [Mass/volume] in Serum or Plasma 2019-06-29 07:27:00 Test Item Value Reference Range Interpretation Comments mass creatinine kinase-mb (test 1.7 NG/mL 0.0-3.6 code = mass creatinine kinase-mb) [facility]onin I.cardiac [Mass/volume] in [id number] 11:38:00 Test Item Value Reference Range Interpretation Comments cardiac troponin I (test code = cardiac <0.30 0.0-0.5 troponin I) [facility] CenterCreat[facility] kinase.MB [Mass/volume] in Serum or Plasma 2019-06-28 11:38:00 Test Item Value Reference Range Interpretation Comments mass creatinine kinase-mb (test 1.6 NG/mL 0.0-3.6 code = mass creatinine kinase-mb) [facility] [id number] 08:35:00 Test Item Value Reference Range Interpretation Comments Surgical pathology see separate pathology study (test code = report. 34225-8) [facility] [Mass/volume] in [id number] 06:27:00 Test Item Value Reference Range Interpretation Comments cardiac troponin I (test code = cardiac <0.30 0.0-0.5 troponin I) [facility].MB [Mass/volume] in Serum or Plasma 2019-06-28 06:27:00 Test Item Value Reference Range Interpretation Comments mass creatinine kinase-mb (test 1.7 NG/mL 0.0-3.6 code = mass creatinine kinase-mb) [facility] CenterCreat[facility] kinase [Enzymatic activity/volume] in Serum or [id number] 01:44:00 Test Item Value Reference Range Interpretation Comments creatine kinase (test code = creatine 40 U/L 20-180 kinase) [facility] CenterTrop[facility] I.cardiac [Mass/volume] in [id number] 01:44:00 Test Item Value Reference Range Interpretation Comments cardiac troponin I (test code = cardiac <0.30 0.0-0.5 troponin I) [facility] CenterCreat[facility] kinase.MB [Mass/volume] in Serum or Plasma 2019-06-28 01:44:00 Test Item Value Reference Range Interpretation Comments mass creatinine kinase-mb (test 1.5 NG/mL 0.0-3.6 code = mass creatinine kinase-mb) [facility] W Auto Differential panel - [id number] 10:00:00 Test Item Value Reference Range Interpretation Comments white blood count (test code = 7.0 K/uL 4.0-11.5 white blood count) red blood count (test code = red 4.56 M/uL 3.80-5.20 blood count) hemoglobin (test code = 11.0 g/dL 10.5-15.7 hemoglobin) hematocrit (test code = 34.2 % 34.0-50.0 hematocrit) Erythrocyte mean corpuscular 75.0 fL 86-100 L volume [Entitic volume] (test code = 50168-3) mean corpuscular hemoglobin (test 24.1 pg 26.2-33.4 L code = mean corpuscular hemoglobin) mean corpuscular HGB conc (test 32.2 g/dL 30-34 code = mean corpuscular HGB conc) red cell distribution width (test 13.0 % 12.0-15.5 code = red cell distribution width) platelet count (test code = 332 K/uL 165-450 platelet count) mean platelet volume (test code = 9.4 fL 9.4-12.6 mean platelet volume) Neutrophils.segmented/100 45.1 % 44.4-80.1 leukocytes in Blood (test code = 36511-4) Granulocytes Immature [#/volume] 0.0 K/uL 0.0-0.03 in Blood (test code = 07855-1) lymphocyte% (test code = 44.7 % 10.0-50.0 lymphocyte%) mono % (test code = mono %) 8.6 % 3.6-12.0 eos % (test code = eos %) 0.9 % 0.0-5.4 Basophils/100 leukocytes in 0.6 % 0.1-1.2 Unspecified specimen (test code = 81959-1) Neutrophils.band form [#/volume] 3.16 K/uL 1.56-6.13 in Blood (test code = 89068-8) Lymphocytes [#/volume] in 3.1 K/uL 1.18-3.74 Unspecified specimen by Automated count (test code = 46966-2) mono # (test code = mono #) 0.60 K/uL 0.24-0.86 eos # (test code = eos #) 0.06 K/uL 0.04-0.36 basophil # (test code = basophil 0.04 K/uL 0.01-0.08 #) NRBC% (test code = NRBC%) 0 /100 WBC 0-0.2 NRBC# (test code = NRBC#) 0 K/uL [facility]different[facility], [id number] 10:00:00 NeutrophilsBandLymphocyteAtypical LymphMonocytePlatelet EstimateMataSouthwest Mississippi Regional Medical CenterIxnpcJWDOHDEJKY0762-30-35 14:00:000.2[facility] 2016-[facility] 14:00:005.5[facility] QxxshrwUQPNVFQTKF9274-14-29 14:00:0057.7[facility] RofbgtpUMIIMYGFUG6927-19-23 14:00:0033.5[facility] MnftugqDVNLSUSKVR1549-34-57 14:00:002.9[facility] RsqzysnAVNVSXDWNG6528-58-25 14:00:004.9[facility] FWIQOOAXJX0891-02-25 14:00:002.9[facility] KtqgotqIPENHGSTXU7048-79-60 14:00:000.5 [facility] JkleplaUUVWHAOXHS8078-53-10 14:00:000.4[facility]HE[facility] 2016-05-31 14:00:000.0[facility] PtswgovUIQJIJFZJY7381-85-23 14:00:0013.3[facility] SozrhnoXEAHDKKKEZ9436-70-46 14:00:008.5[facility] VfqzgjtWWADFZDGBW4490-63-92 14:00:004.72[facility] LbfctrxAVIBEEPIKQ3678-65-61 14:00:0032.7[facility] CWILJRWVIQ7645-45-77 14:00:00 Test Item Value Reference Range Interpretation Comments MCH (test code = MCH) 28.2 pg 27.0-31.0 [facility] SowjgahSJHQTXODQS3782-55-70 14:00:0015.7[facility] 2016-05-31 14:00:0086.5[facility] UwakmjzVDXSLBWQGB9183-85-34 14:00:0040.8[facility] AgzzlxqEZJSYMJVSJ5989-12-80 14:00:009.6[facility] UihvpcuQRIMLHYTWO1518-73-23 14:00:57903Edhxwkrq WbbjmlhIMXZBFPWZK2743-43-20 14:00:00 Test Item Value Reference Range Interpretation Comments PT (test code = PT) 13.5 s 12.0-14.7 [facility] FjvwtnqKBQAHNUHQL2421-16-24 14:00:001.01[facility] 2016-05-31 14:00:00 Test Item Value Reference Range Interpretation Comments PTT (test code = PTT) 33.2 s 22.9-35.8 [facility] TbszhkxTLGZNRDQKI0778-81-94 14:00:60120Irspofds HermannCHEM PANEL 2016-04-25 17:44:0097[facility] HermannCHEM [id number] 17:44:56240Puamweqo HermannCHEM JPQEQ7629-82-50 17:44:0016[facility] HermannCHEM DMHTX7946-61-89 17:44:0027[facility] HermannCHEM BSXIT2563-89-14 17:44:000.60[facility] HermannCHEM DKONG8914-48-68 17:44:0097[facility] HermannCHEM MQAPM1803-77-45 17:44:004.0 [facility]annCHEM [id number] 17:44:009.0[facility] HermannCHEM PANEL 2016-04-25 17:44:24085Hohyjazi HermannCHEM TLUJI6531-36-09 17:44:0013.0[facility] DejzbpbFGHGXELYTN6731-06-36 17:44:008.6[facility] BdwnoijLJHSKTQEKP8946-62-13 17:44:04740Yzmhvnpe HeytzpbDUNCPLCUNA2361-69-11 17:44:0033.2[facility] MVPFDOCXCK9085-05-74 17:44:00 Test Item Value Reference Range Interpretation Comments MCH (test code = MCH) 28.2 pg 27.0-31.0 [facility] SahwqeqYWMIWXXXUI6729-41-80 17:44:0015.2[facility]annHEMATOLOGY 2016-04-25 17:44:0012.6[facility] KztwamcKWRJAIHNYO5284-53-21 17:44:0038.0[facility] LhmdinnUFOKKODLMD6559-80-06 17:44:0085.0[facility] KlindvhVUHOCAJGNJ0406-89-64 17:44:008.8[facility] ErkrwdgGOAZKIABCS9928-24-29 17:44:004.47[facility] FHFOHFXQEY6649-15-75 17:44:000.1[facility] BdxtnhmQPWPJTVBMV9000-84-71 17:44:000.1 [facility] QbtynoyNVTOCNAEXG4483-58-17 17:44:001.3[facility]annHEMATOLOGY 2016-04-25 17:44:006.7[facility] TxiimseJIJJEOQZJL4799-41-69 17:44:002.9[facility] AlikjifJKMOSZDFBL5160-47-55 17:44:000.6[facility] TdqurgeBFZVXOFHUG7232-62-01 17:44:0033.2[facility] LyuupwnGSZOUQTEKB3991-88-05 17:44:005.1[facility] EFZIVYFBXR5206-78-97 17:44:000.6[facility] LckhabhAGXIFYRIIB7141-95-00 17:44:00 58.2[facility]
[2020-04-27] MEDS ORDERED: MORPHINE 2 MG/ML SYR ONE (17:48)
[2020-04-27] MEDS ORDERED: ONDANSETRON 4 MG/2 ML VIAL ONE (17:48)
[2020-04-27] MEDS ORDERED: NA CHLORIDE 0.9% 1,000 ML ONE (17:49)
[2020-04-27] MEDS ORDERED: NA CHLORIDE 0.9% 500 ML ONE (17:49)
[2020-04-27 17:53] LABS: Absolute Lymphocytes (CBC) 2.8 K/uL (0.7-4.9); Basophils % 0.8 % (0-1.3); Hematocrit 33.8 % (36.0-45.0); MPV 7.8 fL (7.6-11.3); RBC Red Blood Cell Count 4.93 M/uL (3.86-4.86)
[2020-04-27 17:54] LABS: Protime INR 1.09
--- NOTE | 2020-04-27 18:00 | RAD REPORT ---
EXAM DESCRIPTION: CT - Head C Spine Cap W Con - 04/27/2020 5:45 pm CLINICAL HISTORY: Trauma, head and neck injury. Chest, abdomen and pelvis pain. Pain;Weakness COMPARISON: No comparisons TECHNIQUE: CT head without contrast. CT cervical spine without contrast with coronal and sagittal reformatted images. CT chest, abdomen and pelvis with IV contrast (approximately 100 mL nonionic IV contrast) with ward l and sagittal reformatted images of the spine. All CT scans are performed using dose optimization technique as appropriate and may include automated exposure control or mA/KV adjustment according to patient size. FINDINGS: CT HEAD WITHOUT CONTRAST: No intracranial hemorrhage, hydrocephalus or extra-axial fluid collection. No areas of brain edema o r midline shift. The paranasal sinuses and mastoids are clear. Craniectomy changes in the right frontal calvarium note d. CT CERVICAL SPINE WITHOUT CONTRAST: No fracture or subluxation. Mild lower cervical degenerative change. The prevertebral soft tissues ar e normal in thickness. CT CHEST, ABDOMEN, PELVIS WITH CONTRAST: The lungs are clear.No pneumothorax or pericardial/pleural fluid. No evidence of intra-abdominal visceral injury, free fluid or free air. No concerning pelvic findings. No fractures. IMPRESSION: Negative for acute traumatic findings.
[2020-04-27 18:04] LABS: ALT/SGPT 45 U/L (12-78); AST/SGOT 34 U/L (15-37); Albumin 3.9 g/dL (3.4-5.0); Alkaline Phosphatase 37 U/L (45-117); BUN Blood Urea Nitrogen 25 mg/dL (7-18); Bicarbonate 24 mmol/L (21-32); Bilirubin Direct 0.2 mg/dL (0-0.2); Bilirubin Total 0.5 mg/dL (0.2-1.0); Glucose Level 94 mg/dL (74-106); Lipase 134 U/L (73-393); Magnesium 1.9 mg/dL (1.8-2.4); NT PRO-BNP 67 pg/mL (<125); Potassium 3.7 mmol/L (3.5-5.1); Protein, Total 7.7 g/dL (6.4-8.2); Sodium Level 134 mmol/L (136-145); Troponin (Emerg Dept Use Only) < 0.02 ng/mL (0.0-0.045)
--- NOTE | 2020-04-27 18:30 | ER ---
Nurse's Notes [facility] Name: Gregoria Vela Age: 70 yrs Sex: Female : 1950 Arrival Date: 04/27/2020 Time: 16:12 Bed 25 Private MD: Diagnosis: Fall due to bumping against object;Superficial injury of head;Contusion of right hip;Strain of muscle, fascia and tendon at neck level;Low back pain Presentation: 04/27 16:48 Chief complaint: Spouse and/or significant other states: : Slipped and fell in ca1 the bathroom last night around 1700. Slipped back landed on back and R side of body. Hit head on the wood floor. Denies LOC. C/O headache and dizziness today. Also c/o epigastric pain and neck pain. Pt on blood thinner Prasugrel. Coronavirus screen: Client denies travel out of the [place] in the last 14 days. At this time, the client does not indicate any symptoms associated with coronavirus-19. The client reports previous COVID testing was negative. Date of collection: February 2020. Ebola Screen: Patient negative for fever greater than or equal to 101.5 degrees Fahrenheit, and additional compatible Ebola Virus Disease symptoms Patient denies exposure to infectious person. Patient denies travel to an Ebola-affected area in the 21 days before illness onset. No symptoms or risks identified at this time. Initial Sepsis Screen: Does the patient meet any 2 criteria? No. Patient's initial sepsis screen is negative. Does the patient have a suspected source of infection? No. Patient's initial sepsis screen is negative. Risk Assessment: Do you want to hurt yourself or someone else? Patient reports no desire to harm self or others. Onset of symptoms was April 27, 2020. 16:48 Method Of Arrival: Wheelchair ca1 16:48 Acuity: ERIC 2 ca1 17:07 Care prior to arrival: None. Mechanism of Injury: Fall from standing position. Trauma jd3 event details: Injury occurred: at home. Trauma Activation: Alert Physician: ED Physician; Name: Anatoliy; Notified At: 16:55; Arrived At: 16:55 Physician: General Surgeon; Name: ; Notified At: 16:55; Arrived At: Physician: Radiology; Name: CT and X-ray tech; Notified At: 16:55; Arrived At: 16:55 Physician: Respiratory; Name: ; Notified At: 16:55; Arrived At: Physician: Lab; Name: ; Notified At: 16:55; Arrived At: Historical: - Allergies: 16:54 No Known Allergies; ca1 - PMHx: 16:54 Hyperlipidemia; Hypertension; LYMPHOMA; plate in head; skin cancer; CAD; ca1 - PSHx: 16:54 Hysterectomy; breast surgery; Heart stents; ca1 - Immunization history:: Adult Immunizations up to date, Flu vaccine is up to date. - Social history:: Smoking status: Patient denies any tobacco usage or history of. - Immunization history: Last tetanus immunization: unknown. - Family history:: not pertinent. Screenin:08 Abuse screen: Denies threats or abuse. Nutritional screening: No deficits noted. jd3 Tuberculosis screening: No symptoms or risk factors identified. 17:08 Fall Risk Ambulatory Aid- None/Bed Rest/Nurse Assist (0 pts). Gait- Normal/Bed jd3 Rest/Wheelchair (0 pts) Mental Status- Oriented to own ability (0 pts). Total Bernstein Fall Scale indicates No Risk (0-24 pts). Primary Survey: 16:59 NO uncontrolled hemorrhage observed. A: The patient is alert. Airway: patent, No jd3 supplemental oxygen in use on arrival. Oral cavity: clear, Trachea midline. Breathing/Chest: Respiratory pattern: regular, Respiratory effort: spontaneous, unlabored, Breath sounds: clear, bilaterally. Chest inspection: symmetrical rise and fall of the chest. Circulation: Heart tones present. Pulses: palpable left carotid pulse and right carotid pulse. Skin color: pink, Skin temperature: warm. Disability Alert. Exposure/Environment: All clothing and personal items were removed. Forensic evidence collection is not deemed to be indicated at this time. Items placed in patient belonging bag. There is no evidence of uncontrolled external bleeding. Obvious injury(ies) are noted at this time: pt reporting pain to the back of the head A warming method has been applied: A warm blanket has been provided to the patient. 17:59 Reassessment Airway Airway Patent Oxygen No O2 Breathing/Chest Respiratory pattern jd3 Regular Respiratory effort Spontaneous Unlabored Chest inspection Symmetrical Circulation Heart tones Present Pulses Palpable Color [place] Temperature Warm Disability Alert. Secondary Survey: 17:04 HEENT: No deficits noted. Gastrointestinal: Abdomen is soft, Bowel sounds present in jd3 all quadrants. Palpation No deficit noted Patient reports Nausea. : No signs and/or symptoms were reported regarding the genitourinary system. Musculoskeletal: No signs and/or symptoms reported regarding the musculoskeletal system. Assessment: 17:05 General: Appears in no apparent distress. uncomfortable, Behavior is calm, cooperative, jd3 appropriate for age. Pain: Complains of pain in abdomen and back of head Quality of pain is described as aching. Neuro: Level of Consciousness is awake, alert, obeys commands, Oriented to person, place, time, situation. EENT: No signs and/or symptoms were reported regarding the EENT system. Cardiovascular: Denies chest pain, Capillary refill < 3 seconds Patient's skin is warm and dry. Respiratory: Airway is patent Respiratory effort is even, unlabored, Respiratory pattern is regular, symmetrical, Denies cough, shortness of breath. GI: Abdomen is round non-distended, Bowel sounds present X 4 quads. Abd is soft and non tender X 4 quads. Reports upper abdominal pain, nausea. : No signs and/or symptoms were reported regarding the genitourinary system. Derm: Skin is intact, Skin is dry, Skin is normal, Skin temperature is warm. Musculoskeletal: Circulation, motion, and sensation intact. Range of motion: intact in all extremities. 18:45 Reassessment: d/c pending x-ray results. zb 19:30 Reassessment: Patient appears in no apparent distress at this time. Patient and/or zb family updated on plan of care and expected duration. Pain level reassessed. Patient is alert, oriented x 3, equal unlabored respirations, skin warm/dry/pink. family at bedside. ECP discussing POC with patient. Pt d/c notes understanding of information. states she is feeling much better. transported via wheelchair to car. Patient states feeling better. Patient states symptoms have improved. Vital Signs: 16:48 BP 131 / 72; Pulse 81; Resp 18 S; Temp 97.9(TE); Pulse Ox 99% on R/A; Weight 82.55 kg ca1 (R); Height 5 ft. 1 in. (154.94 cm) (R); Pain 8/10; 18:09 BP 136 / 75; Pulse 80; Resp 16 S; Pulse Ox 99% on R/A; jd3 16:48 Body Mass Index 34.39 (82.55 kg, 154.94 cm) ca1 [place] Coma Score: 17:07 Eye Response: spontaneous(4). Verbal Response: oriented(5). Motor Response: obeys jd3 commands(6). Total: 15. 18:12 Eye Response: spontaneous(4). Verbal Response: oriented(5). Motor Response: obeys jd3 commands(6). Total: 15. Trauma Score (Adult): 17:07 Eye Response: spontaneous(1); Verbal Response: oriented(1); Motor Response: obeys jd3 commands(2); Systolic BP: > 89 mm Hg(4); Respiratory Rate: 10 to 29 per min(4); [place] Score: 15; Trauma Score: 12 18:12 Eye Response: spontaneous(1); Verbal Response: oriented(1); Motor Response: obeys jd3 commands(2); Systolic BP: > 89 mm Hg(4); Respiratory Rate: 10 to 29 per min(4); [place] Score: 15; Trauma Score: 12 ED Course: 16:12 Patient arrived in ED. ag5 16:52 Triage completed. ca1 16:54 Arm band placed on right wrist. ca1 16:59 Dereck Rogers, RN is Primary Nurse. jd3 16:59 Jason Cope MD is Attending Physician. ambreen 17:08 Patient has correct armband on for positive identification. Bed in low position. Call jd3 light in reach. Side rails up X2. Adult w/ patient. marketing project specialist on. Pulse ox on. NIBP on. 17:08 Patient maintains SpO2 saturation greater than 95% on room air. Thermoregulation: warm jd3 blanket given to patient. 17:37 Inserted saline lock: 22 gauge in left forearm, using aseptic technique. zb 17:45 CT Traumagram (Head C Spine CAP W Con) In Process Unspecified. EDMS 18:18 Hip Right 2 View XRAY In Process Unspecified. EDMS 18:19 XRAY Chest (1 view) In Process Unspecified. EDMS 18:27 Bennie Ledbetter MD is Referral Physician. ambreen 18:39 [place] Ha F[facility]-C [facility] la[facility] 19:20 No provider procedures requiring assistance completed. IV discontinued, intact, zb bleeding controlled, No redness/swelling at site. Pressure dressing applied. Administered Medications: 18:10 Drug: NS 0.9% 500 ml Route: IV; Rate: bolus; Site: left forearm; zb 18:10 Drug: NS 0.9% 1000 ml Route: IV; Rate: 125 ml/hr; Site: left forearm; zb 18:10 Drug: morphine 2 mg Route: IVP; Site: left forearm; zb 18:10 Drug: Zofran (Ondansetron) 4 mg Route: IVP; Site: left forearm; zb Outcome: 18:29 Discharge ordered by . ambreen 19:20 Discharged to home via wheelchair, with family. zb 19:20 Condition: good 19:20 Discharge instructions given to patient, family, Instructed on discharge instructions, follow up and referral plans. medication usage, Demonstrated understanding of instructions, follow-up care, medications, Prescriptions given X 3. 19:35 Patient left the ED. zb Signatures: Dispatcher [employer] EDMS Jason Cope MD MD cha Attema, Lee, FNP-C [employer] INTERN-Cla1 Dereck Rogers RN RN Amy Mckee RN RN ca1 Tamiko Oropeza ag5 Melissa Saucedo RN RN zb Corrections: (The following items were deleted from the chart) 17:01 16:48 Chief complaint: Spouse and/or significant other states: : Slipped and ca1 fell in the bathroom last night. Slipped back landed on back and R side of body. Hit head on the wood floor. Denies LOC. C/O headache and dizziness today. Also c/o epigastric pain and neck pain. ca1 17:03 16:48 Acuity: ERIC 3 ca1 ca1
--- NOTE | 2020-04-27 18:30 | EDPHYS ---
Physician Documentation [facility] Name: Gregoria Vela Age: 70 yrs Sex: Female : 1950 Arrival Date: 04/27/2020 Time: 16:12 Bed 25 Private MD: [place] Physician Jason Cope HPI: 04/27 17:10 This 70 yrs old Female presents to ER via Wheelchair with complaints of Fall ambreen Injury. 17:10 Details of fall: The patient fell from an upright position, while standing, while ambreen walking. Onset: The symptoms/episode began/occurred 1 day(s) ago. Associated injuries: The patient sustained injury to the head, neck injury, upper back injury, injury to the low back, right hip, decreased range of motion, painful injury. Severity of symptoms: At their worst the symptoms were mild, moderate, in the emergency department the symptoms are unchanged. The patient has not experienced similar symptoms in the past. Historical: - Allergies: 16:54 No Known Allergies; ca1 - PMHx: 16:54 Hyperlipidemia; Hypertension; LYMPHOMA; plate in head; skin cancer; CAD; ca1 - PSHx: 16:54 Hysterectomy; breast surgery; Heart stents; ca1 - Immunization history:: Adult Immunizations up to date, Flu vaccine is up to date. - Social history:: Smoking status: Patient denies any tobacco usage or history of. - Immunization history: Last tetanus immunization: unknown. - Family history:: not pertinent. ROS: 17:10 Constitutional: Negative for fever, chills, and weight loss, Eyes: Negative for injury, ambreen pain, redness, and discharge, ENT: Negative for injury, pain, and discharge, Cardiovascular: Negative for chest pain, palpitations, and edema, Respiratory: Negative for shortness of breath, cough, wheezing, and pleuritic chest pain, Abdomen/GI: Negative for abdominal pain, nausea, vomiting, diarrhea, and constipation, : Negative for injury, bleeding, discharge, and swelling, MS/Extremity: Negative for injury and deformity, Skin: Negative for injury, rash, and discoloration, Psych: Negative for depression, anxiety, suicide ideation, homicidal ideation, and hallucinations, Allergy/Immunology: Negative for hives, rash, and allergies, Endocrine: Negative for neck swelling, polydipsia, polyuria, polyphagia, and marked weight changes, Hematologic/Lymphatic: Negative for swollen nodes, abnormal bleeding, and unusual bruising. 17:10 Neck: Positive for pain with movement, pain at rest, tenderness. 17:10 Back: Positive for decreased range of motion, pain at rest, pain with movement. 17:10 MS/extremity: Positive for decreased range of motion, pain, of the right femoral area and right hip. Exam: 17:10 Constitutional: This is a well developed, well nourished patient who is awake, alert, ambreen and in no acute distress. Head/Face: Normocephalic, atraumatic. Eyes: Pupils equal round and reactive to light, extra-ocular motions intact. Lids and lashes normal. Conjunctiva and sclera are non-icteric and not injected. Cornea within normal limits. Periorbital areas with no swelling, redness, or edema. ENT: Nares patent. No nasal discharge, no septal abnormalities noted. Tympanic membranes are normal and external auditory canals are clear. Oropharynx with no redness, swelling, or masses, exudates, or evidence of obstruction, uvula midline. Mucous membranes moist. Chest/axilla: Normal chest wall appearance and motion. Nontender with no deformity. No lesions are appreciated. Cardiovascular: Regular rate and rhythm with a normal S1 and S2. No gallops, murmurs, or rubs. Normal PMI, no JVD. No pulse deficits. Respiratory: Lungs have equal breath sounds bilaterally, clear to auscultation and percussion. No rales, rhonchi or wheezes noted. No increased work of breathing, no retractions or nasal flaring. Abdomen/GI: Soft, non-tender, with normal bowel sounds. No distension or tympany. No guarding or rebound. No evidence of tenderness throughout. Back: No spinal tenderness. No costovertebral tenderness. Full range of motion. Female : Normal external genitalia. Skin: Warm, dry with normal turgor. Normal color with no rashes, no lesions, and no evidence of cellulitis. MS/ Extremity: Pulses equal, no cyanosis. Neurovascular intact. Full, normal range of motion. Neuro: Awake and alert, GCS 15, oriented to person, place, time, and situation. Cranial nerves II-XII grossly intact. Motor strength 5/5 in all extremities. Sensory grossly intact. Cerebellar exam normal. Normal gait. Psych: Awake, alert, with orientation to person, place and time. Behavior, mood, and affect are within normal limits. 17:10 Neck: External neck: no acute changes, C-spine: Thyroid: appears normal, no acute changes, Trachea: is midline with no obvious abnormalities, no acute changes, ROM/movement: pain, that is mild, limited range of motion, that is mild, Meningeal signs: are not present, Kernig's sign is negative, Brudzinski's sign is negative, Lymph nodes: no appreciated lymphadenopathy. 17:32 ECG was reviewed by the Attending Physician. [facility] Vital Signs: 16:48 BP 131 / 72; Pulse 81; Resp 18 S; Temp 97.9(TE); Pulse Ox 99% on R/A; Weight 82.55 kg ca1 (R); Height 5 ft. 1 in. (154.94 cm) (R); Pain 8/10; 18:09 BP 136 / 75; Pulse 80; Resp 16 S; Pulse Ox 99% on R/A; jd3 16:48 Body Mass Index 34.39 (82.55 kg, 154.94 cm) ca1 Hiram Coma Score: 17:07 Eye Response: spontaneous(4). Verbal Response: oriented(5). Motor Response: obeys jd3 commands(6). Total: 15. 18:12 Eye Response: spontaneous(4). Verbal Response: oriented(5). Motor Response: obeys jd3 commands(6). Total: 15. Trauma Score (Adult): 17:07 Eye Response: spontaneous(1); Verbal Response: oriented(1); Motor Response: obeys jd3 commands(2); Systolic BP: > 89 mm Hg(4); Respiratory Rate: 10 to 29 per min(4); Thornwood Score: 15; Trauma Score: 12 18:12 Eye Response: spontaneous(1); Verbal Response: oriented(1); Motor Response: obeys jd3 commands(2); Systolic BP: > 89 mm Hg(4); Respiratory Rate: 10 to 29 per min(4); Thornwood Score: 15; Trauma Score: 12 MDM: 16:59 Patient medically screened. ambreen 16:59 Patient medically screened. [facility] 17:15 Differential diagnosis: closed head injury, contusion, fracture, multiple trauma, ambreen sprain, strain. Data reviewed: vital signs, nurses notes, lab test result(s), EKG, radiologic studies, CT scan, plain films. Data interpreted: monitor car operator: Pulse oximetry:. Test interpretation: by ED physician or midlevel provider: ECG, plain radiologic studies. Counseling: I had a detailed discussion with the patient and/or guardian regarding: the historical points, exam findings, and any diagnostic results supporting the discharge/admit diagnosis, lab results, radiology results. 04/27 17:02 Order name: Basic Metabolic Panel; Complete Time: 18:[address] [facility] 04/27 17:02 Order name: CBC with Diff [facility] 04/27 17:02 Order name: LFT's; Complete Time: 18:[address] [facility] 04/27 17:02 Order name: Magnesium; Complete Time: 18:[address] [facility] 04/27 17:02 Order name: NT PRO-BNP; Complete Time: 18:[address] [facility] 04/27 17:02 Order name: PT-INR; Complete Time: 18:[address] [facility] 04/27 17:02 Order name: Troponin (emerg Dept Use Only); Complete Time: 18:[address] [facility] 04/27 17:02 Order name: XRAY Chest (1 view) [facility] 04/27 17:02 Order name: CT Traumagram (Head C Spine CAP W Con); Complete Time: 18:[address] [facility] 04/27 17:02 Order name: Lipase; Complete Time: 18:[address] [facility] 04/27 17:10 Order name: Hip Right 2 View XRAY [facility] 04/27 18:05 Order name: CBC Smear Scan ED[facility] 04/27 19:17 Order name: Urine Dipstick--Ancillary (enter results) tt 04/27 17:02 Order name: EKG; Complete Time: 17:[address] [facility] 04/27 17:02 Order name: Cardiac monitoring; Complete Time: 17:[address] [facility] 04/27 17:02 Order name: EKG - Nurse/Tech; Complete Time: 17:[address] [facility] 04/27 17:02 Order name: IV Saline Lock; Complete Time: 17:[address] [facility] 04/27 17:02 Order name: Labs collected and sent; Complete Time: 17:[address] [facility] 04/27 17:02 Order name: O2 Per Protocol; Complete Time: 17:[address] [facility] 04/27 17:02 Order name: O2 Sat Monitoring; Complete Time: 17:[address] [facility] 04/27 17:02 Order name: Urine Dipstick-Ancillary (obtain specimen); Complete Time: 19:16 ambreen EC:32 Rate is 77 beats/min. Rhythm is regular. QRS Gravette is Normal. PA interval is normal. QRS ambreen interval is normal. QT interval is normal. No Q waves. T waves are Normal. No ST changes noted. Clinical impression: NSR w/ Non-specific ST/T Changes and No evidence of ischemia. Interpreted by me. Reviewed by me. Administered Medications: 18:10 Drug: NS 0.9% 500 ml Route: IV; Rate: bolus; Site: left forearm; zb 18:10 Drug: NS 0.9% 1000 ml Route: IV; Rate: 125 ml/hr; Site: left forearm; zb 18:10 Drug: morphine 2 mg Route: IVP; Site: left forearm; zb 18:10 Drug: Zofran (Ondansetron) 4 mg Route: IVP; Site: left forearm; zb Disposition: 04/27/20 18:29 Discharged to Home. Impression: Fall due to bumping against object, Superficial injury of head, Contusion of right hip, Strain of muscle, fascia and tendon at neck level, Low back pain. - Condition is Stable. - Discharge Instructions: Back Pain, Adult, Head Injury, Adult, Musculoskeletal Pain, Cervical Sprain, [id number], Back Pain, Adult, [id number], Head Injury, Adult, [id number]. - Prescriptions for Tylenol- Codeine #3 300-30 mg Oral Tablet - take 2 tablets by ORAL route every 6 hours As needed; 20 tablet. Motrin IB 200 mg Oral Tablet - take 2 tablet by ORAL route every 8 hours As needed as needed with food; 30 tablet. Cyclobenzaprine 5 mg Oral Tablet - take 1 tablet by ORAL route 3 times per day As needed; 15 tablet. - Medication Reconciliation Form, Thank You Letter, Antibiotic Education, Prescription Opioid Use form. - Follow up: Private Physician; When: 2 - 3 days; Reason: Recheck today's complaints, Continuance of care, Re-evaluation by your physician. Follow up: Bennie Ledbetter MD; When: 2 - 3 days; Reason: Recheck today's complaints, Re-evaluation by your physician. - Problem is new. - Symptoms have improved. Signatures: Dispatcher [employer] EDMS Jason Cope MD MD cha Davies, Jonathon RN RN jd3 Amy Park RN Melissa Barreto RN RN zb Corrections: (The following items were deleted from the chart) 17:10 17:00 Head C Spine MPR Wo Con+CT.RAD.BRZ ordered. [facility] 19:35 18:29 04/27/2020 18:29 Discharged to Home. Impression: Fall due to bumping against zb object; Superficial injury of head; Contusion of right hip; Strain of muscle, fascia and tendon at neck level; Low back pain. Condition is Stable. Forms are Medication Reconciliation Form, Thank You Letter, Antibiotic Education, Prescription Opioid Use. Follow up: Private Physician; When: 2 - 3 days; Reason: Recheck today's complaints, Continuance of care, Re-evaluation by your physician. Follow up: Bennie Ledbetter; When: 2 - 3 days; Reason: Recheck today's complaints, Re-evaluation by your physician. Problem is new. Symptoms have improved. ambreen
[2020-04-27 19:03] LABS: Anisocytosis 1+; Blood Morphology Comment NOTED (NOT SEEN); Platelet Estimate ADEQ; Poikilocytosis 2+; White Blood Cell Scan OK (OK)
--- NOTE | 2020-04-27 19:11 | RAD REPORT ---
EXAM DESCRIPTION: RAD - Chest Single View - 04/27/2020 6:18 pm CLINICAL HISTORY: COUGH Chest pain. COMPARISON: Chest Single View dated 08/26/2017 FINDINGS: Portable technique limits examination quality. The lungs are grossly clear. The heart is normal in size. No displaced fractures. IMPRESSION: No acute intrathoracic process suspected.
--- NOTE | 2020-04-27 19:11 | RAD REPORT ---
EXAM DESCRIPTION: RAD - Hip Right 2 View - 04/27/2020 6:18 pm CLINICAL HISTORY: PAIN Fall, pain COMPARISON: No comparisons FINDINGS: Mild arthritic changes are present. No fracture, dislocation or AVN.
[2020-04-27 20:26] LABS: Urine Blood NEGATIVE (NEG); Urine Glucose NEGATIVE (NEG); Urine Protein NEGATIVE (NEG); Urine pH 6.5 (5.0-7.0)
[2020-04-27 23:09] VITALS: TEMP 97.9; O2SAT 99
[2020-04-27 23:15] VITALS: BP 136/75
--- NOTE | 2020-04-28 18:13 | EKG ---
Test Date: 2020-04-27 Test Time: 17:23:04 Break Off Worker: TAMMY MEASUREMENT RESULTS: Intervals: Rate: 77 NC: 144 QRSD: 88 QT: 412 QTc: 466 Larned: P: 71 NC: 144 QRS: -6 T: 77 INTERPRETIVE STATEMENTS: Sinus rhythm with premature atrial complexes Possible Anterior infarct, age undetermined Abnormal ECG Compared to ECG 08/27/2017 09:31:26 Atrial premature complex(es) now present Myocardial infarct finding now present T-wave abnormality no longer present Electronically Signed On 04-28-20 18:11:26 [employer] by Regis Wall
== END 2020-04-27 19:35 | disposition home or self-care (01) ==
LOC: ER 16:10
DX: S00.90XA Unspecified superficial injury of unspecified part of head, initial encounter (principal); S16.1XXA Strain of muscle, fascia and tendon at neck level, initial encounter; S70.01XA Contusion of right hip, initial encounter; W18.00XA Striking against unspecified object with subsequent fall, initial encounter; Y93.01 Activity, walking, marching and hiking; Y92.9 Unspecified place or not applicable; Z85.72 Personal history of non-Hodgkin lymphomas; Z95.818 Presence of other cardiac implants and grafts; I10 Essential (primary) hypertension
CPT/HCPCS: 93005; 85025; 80048; 36415; 83735; 85610; 82565; 80076; 81003; 84484; 83690; 83880; 70450; 72125; 71260; 74177; 71045; 73502; Q9967; J2270; J7040; J7030; J2405; 96374; 96375; 99285; G0390

== ENCOUNTER 2020-10-14 10:02 | Inpatient (IN) | payer OTHER, BC ==
--- OUTSIDE RECORDS SUMMARY | 2020-10-14 10:07 | XMS REPORT | Continuity of Care Document ---
:1950 Author Organization [facility] t Address [address] [place] [address] Care Team Providers Name Role Phone Nikky HUSSEIN Primary Care Physician Unavailable Shirin QUACH Attending Clinician Jose J Hyde MD Attending Clinician Esau Attending Clinician Ignacia Shoemaker Attending Clinician Esau Admitting Clinician Payers Payer Name Policy Type Policy Effective Date Expiration Date Sour ce Number MEDICAREMEDICARE PART [id number] 2017 MD Cope JmxheahhNV220/06/2016- 00:00:00 [id number] [id number] 2014 MD Radhames [facility] PPO 8 00:00:00 [id number] 15-PresentPPO MEDICAREMEDICARE PART [id number] 2017 josette [id number] 2016- 00:00:00 Met [place] [id number] 2019 [place] PPO/[facility] EMPL 8 00:00:00 Shabana maldonado [id number]/06/24 20-PresentPPO Problems Condition Condition Condition Status Onset Resolution Last Treating Co mments Source Name Details Category Date Date Treatment Clinician Date Splits in Splits in Problem Active 2020-0 [facility] nails Nails 3-17 da 00:00: Medical 00 Group Wheezing Wheezing Problem Active [facility] symptom Symptom 3-17 da 00:00: Medical 00 Group Acute Acute Problem Active [facility] pharyngiti Pharyngiti 7-08 da s s 00:00: Medical 00 Group Pain in Pain in Problem Active [place] the coccyx the Coccyx 7-08 da 00:00: Medical 00 Group Malignant Malignant Problem Active [facility] lymphoma Lymphoma 5-26 da 00:00: Medical 00 Group Cervical Cervical Problem Active 2018-06 [...] syndrome Syndrome 00:00: Medica l 00 Group Greater Greater Problem Active [place] trochanter Trochanter 4-07 da ic pain ic Pain 00:00: Medical syndrome Syndrome 00 Group Pruritus Pruritus Disease Active MD [...] C83.3 00:00: [place] 00 Active 05/31/2016 [facility] [place] MESENTERIC Diagnosis Active 2015-062016-05-02 Memoria LYMPH 06-25 07:59:00 l NODE-I88.0 00:00: Gurwinder n MESENTERIC 00 LYMPH NODE-I88.0 Active 04/25/2016 [facility] [place] Recurrent Recurrent Problem Active [facility] herpes [...] Index 30+ da - obesity - Obesity [facility] Obesity Obesity Problem Active [place] da [...] Active [place] maxillary Maxillary da sinusitis Sinusitis [facility] Has a sore Has a Sore [...] Nasal da turbinates Turbinates Me dical Group Anxiety Problem Active 2016-06-03 Kobi thania (finding) 02:23:46 l Anxiety [place] (finding) Active Problem 06/03/2016 [place] Backache Problem Active 2016-06-03 Mem oria (finding) 02:23:46 l Backache Gurwinder n (finding) Active Problem 06/03/2016 [facility] [place] Gastroesop Problem Active 2016-06-03 M tom hageal 02:23:46 l reflux [place] disease Gastroesop (disorder) hageal reflux disease (disorder) Active Problem 06/03/2016 [facility] [place] Neck pain Problem Active 2016-06-03 Me moria (finding) 02:23:46 l Neck [place] pain (finding) Active Problem 06/03/2016 [place] Angina Problem Resolve 2016-06-03 Kobi thania (disorder) d 02:23:46 l Angina [place] (disorder) Resolved Problem 06/03/2016 [facility] [place] Allergies, Adverse Reactions, Alerts Allergy Allergy Status Severity Reaction(s) Onset Inactive Treating Comm ents Source Name Type Date Date Clinician Tylenol Tylenol Active Memoria l [place] Tylenol Allergy Active Rash [facility] to [facility] Family History Family Member Diagnosis Comments Start Date Stop Date Source Natural mother -Thoracic or Lung MD Cope Natural mother Coronary heart disease MD Cope (CHD) Natural mother Hypertension Radhames son Natural mother -Gynecology (Ovary, Alexa Cope Endometrial, Cervix, Vagina) Natural sister -Genitourinary (Bladder, MD Cope Kidney, Prostate, Testicle) Natural sister Stroke MD Cristobal onofre Natural brother Diabetes MD Page on Natural father Coronary heart disease MD Cope (CHD) Natural father Hypertension Radhames son Maternal aunt -Brain cancer Radhames son Maternal aunt -Gastrointestinal MD Cheyenne christianson (Esophagus, Liver, Bile Duct, Stomach, Pancreas, Colon, Rectum, Anus Maternal aunt -Leukemia MD Cope Social History Social Habit Start Date Stop Date Quantity Comments Source Cigarettes smoked 2019-10-04 2019-10-04 MD Rojas castellano current (pack per 00:00:00 00:00:00 day) - Reported Cigarette 2019-10-04 2019-10-04 MD Cope pack-years 00:00:00 00:00:00 Tobacco use and 2019-10-04 2019-10-04 Never used MD Page on exposure 00:00:00 00:00:00 Alcohol intake 2019-10-04 2019-10-04 Current MD Cristobal onofre 00:00:00 00:00:00 non-drinker of alcohol (finding) Social History 2016-04-25 2016-04-25 [facility] Daniela bacon 18:11:00 18:11:00 History of tobacco 1968-06-05 1978-06-05 Current smoker MD Cope use 00:00:00 00:00:00 [birth year] Bert ocampoodist 00:00:00 00:00:00 Smoking Status Start Date Stop Date Source Former smoker 2019-10-04 00:00:00 2019-10-04 00:00:00 Radhames roxane Medications Ordered Filled Start Stop Current Ordering Indication Dosage Frequency Signature Comments Components Source Medication Medication Date Date Medication? Clinician (SIG) Name Name traMADoL 2019-06 2020- No acute pain 50mg Q8H Take 1 Bert (ULTRAM) 50 0-23 11-02 tablet (50 M ethodi mg tablet 00:00: 23:59 mg total) st 00 :00 by mouth every 8 (eight) hours as needed for moderate pain for up to 10 days .acute pain. amLODIPine Yes 5mg Take 5 mg MD (NORVASC) 5 5-01 by mouth Rojas rso mg tablet 19:53: daily. n 57 gemfibrozil 2019-0 Yes gemfibrozi MD (LOPID) 600 5-01 l 600 mg Rojas rso mg tablet 19:53: tablet n 57 TAKE 1 TABLET BY MOUTH TWICE DAILY icosapent 2019-0 Yes Vascepa 1 MD ethyL 5-01 gram Anderso (Vascepa) 1 19:53: capsule n gram cap 57 TAKE 2 CAPSULES BY MOUTH TWICE DAILY acyclovir 2019-0 Yes 2{capsu Take 2 MD (ZOVIRAX) 5-01 le} capsules Camilo o 200 mg 19:48: by mouth n capsule 02 as needed. acyclovir 2019-0 Yes 1{appli Apply 1 MD (ZOVIRAX) 5-01 cation} applicatio A nderso 5% cream 19:48: n n 02 topically to affected area(s) as needed. fenofibrate 2019-0 Yes 1{tbl} Take 1 MD nanocrystal 5-01 tablet by And erso lized 19:48: mouth n (TRICOR) 02 daily. 145 mg tablet FLUoxetine 2019-0 Yes 1{capsu Take 1 MD (PROzac) 20 [...] the middle of the day. aspirin 81 2020-0 Yes 81mg Take 81 mg M D mg EC 5-01 by mouth Anderso tablet 19:48: daily. n 02 clopidogrel 2020-0 Yes 75mg Take 75 mg MD (PLAVIX) 75 4-22 by mouth Rojas rso mg tablet 00:00: daily. n 00 LUMIGAN 2020-0 Yes 1[drp] Administer MD 0.01 % 4-18 1 drop to Anderso ophthalmic 00:00: both eyes. n drops 00 Patient states she does two drops atorvastati 2020-0 Yes 40mg Take 40 mg MD n (LIPITOR) 3-03 by mouth Rojas rso 40 mg 00:00: at n tablet 00 bedtime. fluocinolon 2019- Yes Patient MD arshad 0.01 % 8- uses this Camilo o oil 00:00: 2-4 times n 00 a day hydrOXYzine Yes Dermatograp TAKE 1 OR HCl 7-30 hic 2 TABLETS Anderso (ATARAX) 25 00:00: urticaria BY MOUTH n mg tablet 00 EVERY NIGHT AT BEDTIME NEEDED FOR ITCHING. Roxicodone 2015-06 No 5 mg, Memori a 07-02 Route: PO, l 20:33: ONCE, Dosing Weight 67.864, kg, Start date: 05/02/16 14:33:00 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 [employer] INCOM[employer], Stop date: 05/02/16 14:33:00 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 INCOME glycopyrrol 2015-06 No Route: IV, Memoria ate (ANES) 07-02 Drug form: l 18:36: INJ, ONCE, Stop date: 05/02/16 12:36:00 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 INCOME neostigmine 2015-06 No Route: IV, Memoria (ANES) 07-02 Drug form: l 18:36: INJ, ONCE, Stop date: 05/02/16 12:36:00 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 INCOME Meperidine 2015-06 No Notes: Memor ia 07-02 (Same as: l 18:29: Demerol) "Use Precaution in Elderly, Seizure disorders, and Renal impairment " Dexamethaso 2015-06 No Notes: Kobi thania ne 07-02 Concentrat l 18:29: ion: 4mg/ml Ondansetron 2015-06 No Notes: Kobi thania [...] Pain Score 1-3, Start date: 05/02/16 12:29:00 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 [employer] INCOME, Duration: 1 doses or times, Stop date: [...] 17:54: INJ, ONCE, Stop date: 05/02/16 11:54:00 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 INCOME ePHEDrine 2015-06 No Route: IV, Me moria (ANES) 07-02 Drug form: l 17:14: INJ, ONCE, Stop date: 05/02/16 11:14:00 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 INCOME metoclopram 2015-06 No Route: IV, Memoria simeon (ANES) 07-02 Drug form: l 17:04: INJ, ONCE, Stop date: 05/02/16 11:04:00 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 INCOME famotidine 2015-06 No Route: IV, M emoria (ANES) 07-02 Drug form: l 17:04: INJ, ONCE, Stop date: 05/02/16 11:04:00 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 INCOME rocuronium 2015-06 No Route: IV, M emoria (ANES) 07-02 Drug form: l 17:04: INJ, ONCE, Stop date: 05/02/16 11:04:00 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 INCOME acetaminoph 2015-06 No Route: IV, Memoria en (ANES) 07-02 Drug form: l 17:04: INJ, ONCE, Stop date: 05/02/16 11:04:00 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 INCOME propofol 2015-06 No Route: IV, Mem oria (ANES) 07-02 Drug form: l 16:59: INJ, ONCE, Stop date: 05/02/16 10:59:00 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 INCOME succinylcho 2015-06 No Route: IV, Memoria line (ANES) 07-02 Drug form: l 16:59: INJ, ONCE, Stop date: 05/02/16 10:59:00 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 [employer] INCOME midazolam 2015-06 No Route: IV, Me moria (ANES) 07-02 Drug form: l 16:59: SOLN, ONCE, Stop date: 05/02/16 10:59:00 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 [employer] INCOME fentaNYL 2015-06 No Route: IV, Mem oria (ANES) 07-02 Drug form: l 16:59: INJ, ONCE, Stop date: 05/02/16 10:59:00 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 [employer] INCOME lidocaine 2015-06 No Route: IV, Me moria (ANES) 07-02 Drug form: l 16:59: INJ, ONCE, Stop date: 05/02/16 10:59:00 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 [employer] INCOME cefOXitin 2015-06 No Route: IV, Me moria (ANES) 07-02 Drug form: l 16:54: INJ, ONCE, Stop date: 05/02/16 10:54:00 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 INCOME LR 1000 mL 2015-06 No Route: IV, M emoria INJ (ANES) 07-02 Total l 16:19: Volume: 1,000, Start date: 05/02/16 10:19:00 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 FIX[employer] INCOME, Stop date: 05/02/16 11:19:00 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 [employer] INCOME Neurontin 2015-06 No Notes: Memori a 07-02 (Same as: l 15:30: Neurontin) 00 Calcium 2015-06 No 1,000 mL, Memor ia Chloride 07-02 Rate: 25 l 0.0014 13:59: ml/hr, Haris MEQ/ML / 00 Infuse Potassium over: 40 Chloride hr, Route: 0.004 IV, Dosing MEQ/ML / Weight Sodium 67.727 kg, Chloride Total 0.103 Volume: MEQ/ML / 1,000, Sodium Start Lactate date: 0.028 05/02/16 MEQ/ML 7:59:00 Injectable 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 INCOME, Solution Duration: 30 day, Stop date: 06/01/16 7:58:00 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 INCOME Lovenox 2015-06 No Notes: Memoria 07-02 (Same as: l 12:00: Lovenox) [place] 00 CeleBREX 2015-06 No Notes: Memoria 07-02 NSAID. l 12:00: Please [place] 00 check indication . Not for seizure. (Same As: CeleBREX) Mefoxin + 2015-06 No Notes: Memori a sodium 07-02 (Same As: l chloride 12:00: Mefoxin) Ana nn 0.9% INJ 00 100 mL MEDICATION WASTE Product Size: 2000 mg Product Wasted: ___ mg Neurontin 2015-06 No Notes: Memori a 07-02 (Same as: l 12:00: Neurontin) [place] Fish Oil 2015-06 Yes = 2 tab, Memor ia 1200 mg -21 PO, PRN, 0 l oral 17:54: Refill(s) [place] capsule 00 biotin 1000 2015-06 Yes 2,000 Memor ia mcg oral 1-21 microgram l tablet 17:53: = 2 tab, [place] 00 PO, Daily, # 30 tab, 0 Refill(s) lansoprazol 2015-06 Yes 30 mg = 1 M emoria e 30 MG 1-21 cap, PO, l Enteric 17:52: Daily, 0 Gurwinder n Coated 00 Refill(s) Capsule [Prevacid] Aspirin 325 2015-06 Yes 325 mg = 1 Memoria MG Oral 1-21 tab, PO, l Tablet 17:52: BID, 0 [place] 00 Refill(s) latanoprost 2015-06 Yes 1 drp, Kobi thania 0.05 MG/ML - QPM, 0 l Ophthalmic 17:51: Refill(s) He rmann Solution 00 [Xalatan] Niacin SR 2015-06 Yes 500 mg = 1 Me moria 500 mg oral - cap, PO, l capsule, 17:51: Bedtime, 0 Her walters extended 00 Refill(s) release Fenofibrate 2015-06 Yes 145 mg = 1 Memoria 145 MG Oral -21 tab, PO, l Tablet 17:51: Daily, 0 [place] 00 Refill(s) acyclovir 2015-06 Yes 200 mg = 1 Me moria 200 mg oral 06-25 cap, PO, l capsule 17:50: TID, 0 [place] 00 Refill(s) carisoprodo 2015-06 Yes 350 mg = 1 Memoria l 350 mg - tab, PO, l oral tablet 17:49: QID, 0 Herm gricel 00 Refill(s) Estrogens, 2015-06 Yes 1.25 mg = Me moria Conjugated 06-25 1 tab, PO, l (SNF) 1.25 17:48: Daily, 0 Her walters MG Oral 00 Refill(s) Tablet [Premarin] FLUoxetine 2015-06 Yes 20 mg = 1 Me moria 20 mg oral - tab, PO, l tablet 17:47: Daily, 0 [place] 00 Refill(s) isosorbide 2015-06 Yes 30 mg = 1 Me moria dinitrate - tab, PO, l 30 mg oral 17:46: Daily, 0 Her walters tablet 00 Refill(s) Hydrochloro 2015-06 Yes 1 tab, PO, Memoria thiazide -21 Daily, 0 l 12.5 MG / 17:46: Refill(s) Her walters Lisinopril 00 20 MG Oral Tablet diethylprop 2015-06 Yes TK 1 T PO M D ion 25 mg 0-20 TID BEFORE Rojas rso tab 00:00: MEALS n 00 atorvastati atorvastati No atorvastat [place] n 40 mg n 40 mg in 40 mg da tablet TAKE tablet TAKE tablet Medical 1 TABLET BY 1 TABLET BY TAKE 1 Group MOUTH EVERY MOUTH EVERY TABLET BY DAY DAY MOUTH EVERY DAY carisoprodo carisoprodo No carisoprod [place] l 350 mg l 350 mg ol 350 mg da tablet TAKE tablet TAKE tablet Medical 1 TABLET BY 1 TABLET BY TAKE 1 Group MOUTH EVERY MOUTH EVERY TABLET BY 8 HOURS 8 HOURS MOUTH EVERY 8 HOURS famotidine famotidine No famotidine [place] 40 mg [...] APPLY TWICE APPLY DAILY. DAILY. TWICE DAILY. gemfibrozil gemfibrozil No gemfibrozi [place] 600 mg [...] 1 MOUTH TWICE MOUTH TWICE CAPSULE BY DAILY DAILY MOUTH TWICE DAILY ibuprofen ibuprofen No ibuprofen [place] 800 mg 800 mg 800 mg da tablet TK 2 tablet TK 2 tablet TK Medical T PO Q 8 T PO Q 8 2 T PO Q 8 G roup HOURS PRN HOURS PRN HOURS PRN WF WF WF iron 20mg iron 20mg No iron 20mg [...] MOUTH EVERY MOUTH DAY DAY EVERY DAY lisinopril lisinopril No lisinopril [place] 20 20 20 da mg-hydrochl mg-hydrochl mg-hydroch Medical orothiazide orothiazide lorothiazi Group 12.5 mg 12.5 mg de 12.5 mg tablet TAKE tablet TAKE tablet 1 TABLET BY 1 TABLET BY TAKE 1 MOUTH EVERY MOUTH EVERY TABLET BY MORNING AND MORNING AND MOUTH EVERY NIGHT EVERY NIGHT EVERY AT BEDTIME AT BEDTIME MORNING AND EVERY NIGHT AT BEDTIME Lumigan Lumigan No Lumigan [facility] [facility] 0.01 % eye 0.01 % eye 0.01 % eye da drops drops drops Medical INSTILL 1 INSTILL 1 INSTILL 1 Group DROP IN DROP IN DROP IN BOTH EYES BOTH EYES BOTH EYES AT BEDTIME AT BEDTIME AT BEDTIME prednisolon prednisolon No prednisolo [place] e acetate 1 e acetate 1 ne acetate da % eye % eye 1 % eye Medical drops,suspe drops,suspe drops,susp Group nsion nsion ension Premarin Premarin No Premarin [facility] 1.25 [...] in a Medical dropperette dropperette dropperett Group INSTILL 1 INSTILL 1 e INSTILL DROP IN DROP IN 1 DROP IN BOTH EYES BOTH EYES BOTH EYES TWICE DAILY TWICE DAILY TWICE DAILY tramadol 50 tramadol 50 No tramadol [place] mg tablet mg tablet 50 mg da TAKE 1 TAKE 1 tablet Medical TABLET BY TABLET BY TAKE 1 Vick up MOUTH TWICE MOUTH TWICE TABLET BY DAILY DAILY MOUTH TWICE DAILY Vascepa 1 Vascepa 1 No Vascepa 1 [place] gram gram gram da capsule capsule capsule Medica l TAKE 2 TAKE 2 TAKE 2 Group CAPSULES BY CAPSULES BY CAPSULES MOUTH TWICE MOUTH TWICE BY MOUTH DAILY DAILY TWICE DAILY acetaminoph acetaminoph No acetaminop [place] en 300 en 300 hen 300 da mg-codeine mg-codeine mg-codeine Medical 30 mg 30 mg 30 mg Group tablet TK 2 tablet TK 2 tablet TK T PO Q 6 T PO Q 6 2 T PO Q 6 HOURS PRN HOURS PRN HOURS PRN FOR PAIN FOR PAIN FOR PAIN acyclovir acyclovir No acyclovir [place] 200 mg 200 mg 200 mg da capsule capsule capsule Medica l TAKE 1 TAKE 1 TAKE 1 Group CAPSULE BY CAPSULE BY CAPSULE BY MOUTH EVERY MOUTH EVERY MOUTH 4 HOURS 4 HOURS EVERY 4 DURING DURING HOURS EPISODE EPISODE DURING EPISODE acyclovir 5 acyclovir 5 No acyclovir [place] % topical % topical 5 % da cream EMERSON cream EMERSON topical Me dical AA BID PRF AA BID PRF cream EMERSON Group OUTBREAK OUTBREAK AA BID PRF OUTBREAK amoxicillin amoxicillin No amoxicilli [place] [phone] n 875 da mg-potassiu mg-potassiu mg-potassi Medical m m um Group clavulanate clavulanate clavulanat 125 mg 125 mg e 125 mg tablet TAKE tablet TAKE tablet 1 TABLET BY 1 TABLET BY TAKE 1 MOUTH EVERY MOUTH EVERY TABLET BY 12 HOURS 12 HOURS MOUTH EVERY 12 HOURS Immunizations Ordered Immunization Filled Immunization Date Status Commen ts Source Name Name Tdap Tdap 2015-10-02 Completed [facility] 15:44:00 Medical Group influenza, high dose influenza, high dose 2014-04-16 Completed [facility] seasonal seasonal 00:00:00 Medical Group pneumococcal pneumococcal 2013-04-02 Completed [facility] polysaccharide PPV23 polysaccharide PPV23 18:27:10 Medical Group influenza, seasonal, influenza, seasonal, 2013-04-02 Completed [facility] injectable injectable 18:27:10 Medical Group Vital Signs Vital Name Observation Time Observation Value Comments Source Height 2020-08-19 00:00:00 61 [in_i] [facility] BMI (Body Mass 2020-08-19 00:00:00 34.8 kg/m2 [facility] Medical Index) Group Body Weight 2020-08-19 00:00:00 2944 [oz_av] [facility] Height 2020-02-20 00:00:00 61 [in_i] [facility] BMI (Body Mass 2020-02-20 00:00:00 34.8 kg/m2 [facility] Medical Index) Group Body Weight 2020-02-20 00:00:00 2944 [oz_av] [facility] Height 2019-12-11 00:00:00 61 [in_i] [facility] BMI (Body Mass 2019-12-11 00:00:00 34.8 kg/m2 [facility] resident caregiver Medical Index) Group Body Weight 2019-12-11 00:00:00 2944 [oz_av] [facility] BP Diastolic 2019-07-18 00:00:00 72 mm[Hg] [facility] Height 2019-07-18 00:00:00 61 [in_i] [facility] BMI (Body Mass 2019-07-18 00:00:00 34.8 kg/m2 [facility] resident caregiver Medical Index) Group BP Systolic 2019-07-18 00:00:00 138 mm[Hg] [facility] Body Weight 2019-07-18 00:00:00 184 [lb_av] [facility] BP Diastolic 2019-06-11 00:00:00 72 mm[Hg] [facility] Height 2019-06-11 00:00:00 61 [in_i] [facility] BMI (Body Mass 2019-06-11 00:00:00 34.4 kg/m2 [facility] resident caregiver Medical Index) Group BP Systolic 2019-06-11 00:00:00 138 mm[Hg] [facility] Body Weight 2019-06-11 00:00:00 182 [lb_av] [facility] BP Diastolic 2019-05-22 00:00:00 70 mm[Hg] [facility] Height 2019-05-22 00:00:00 61 [in_i] [facility] BMI (Body Mass 2019-05-22 00:00:00 34.4 kg/m2 [facility] resident caregiver Medical Index) Group BP Systolic 2019-05-22 00:00:00 141 mm[Hg] [facility] Body Weight 2019-05-22 00:00:00 2912 [oz_av] [facility] BP Diastolic 2019-05-07 00:00:00 71 mm[Hg] [facility] Height 2019-05-07 00:00:00 61 [in_i] [facility] BMI (Body Mass 2019-05-07 00:00:00 34.4 kg/m2 [facility] resident caregiver Medical Index) Group BP Systolic 2019-05-07 00:00:00 141 mm[Hg] [facility] Body Weight 2019-05-07 00:00:00 2912 [oz_av] [facility] BP Diastolic 2019-03-26 00:00:00 69 mm[Hg] [facility] Height 2019-03-26 00:00:00 61 [in_i] [facility] BMI (Body Mass 2019-03-26 00:00:00 33.6 kg/m2 [facility] Medical Index) Group BP Systolic 2019-03-26 00:00:00 138 mm[Hg] [facility] Body Weight 2019-03-26 00:00:00 2848 [oz_av] [facility] BP Diastolic 2018-12-28 00:00:00 74 mm[Hg] [facility] Height 2018-12-28 00:00:00 61 [in_i] [facility] BMI (Body Mass 2018-12-28 00:00:00 33.8 kg/m2 [facility] Medical Index) Group BP Systolic 2018-12-28 00:00:00 135 mm[Hg] [facility] Body Weight 2018-12-28 00:00:00 2864 [oz_av] [facility] BP Diastolic 2018-05-31 00:00:00 71 mm[Hg] [facility] Height 2018-05-31 00:00:00 61 [in_i] [facility] BMI (Body Mass 2018-05-31 00:00:00 35 kg/m2 [facility] Medical Index) Group BP Systolic 2018-05-31 00:00:00 133 mm[Hg] [facility] Body Weight 2018-05-31 00:00:00 2960 [oz_av] [facility] Systolic (mm Hg) 2016-05-31 14:00:00 Kobi Carballo Diastolic (mm Hg) 2016-05-31 14:00:00 Mem maryal [place] Respitory Rate 2016-05-31 14:00:00 Joe Kong Temperature Oral (F) 2016-05-31 14:00:00 98.4 F [facility] Weight 2016-05-31 13:20:00 Paula Carballo BMI Calculated 2016-05-31 13:20:00 Joe Kong Height 2016-05-31 13:20:00 154.94 cm [facility] [place] Respitory Rate 2016-05-02 20:45:00 Memori al [place] Systolic (mm Hg) 2016-05-02 20:45:00 Kobi rial [place] Diastolic (mm Hg) 2016-05-02 20:45:00 Mem orial [place] Respitory Rate 2016-05-02 20:15:00 Memori al [place] Systolic (mm Hg) 2016-05-02 20:15:00 Kobi rial [place] Diastolic (mm Hg) 2016-05-02 20:15:00 Mem orial [place] Systolic (mm Hg) 2016-05-02 19:45:00 Kobi rial [place] Diastolic (mm Hg) 2016-05-02 19:45:00 Mem orial [place] Respitory Rate 2016-05-02 19:45:00 Memori al [place] Heart Rate 2016-05-02 14:45:00 [facility] [place] Weight 2016-05-02 14:23:00 [facility] [place] BMI Calculated 2016-05-02 14:23:00 Memori al [place] Height 2016-04-25 17:38:00 154.94 cm [facility] Procedures Procedure Date / Time Performing Source Performed Clinician MRI LUMBAR SPINE WO CONTRAST 2020-03-24 Chase Hyde 17:19:58 Jose J Scientologist XR LUMBAR SPINE COMPLETE 4+ VW 2020-03-24 Chase Hyde 14:02:19 Jose J Scientologist XR, lumbar spine 2020-02-20 [facility] 00:00:00 Medical Group MRI, lumbar spine, w/o contrast 2020-02-20 [facility] 00:00:00 Medical Group unlisted imaging order 2019-06-11 [facility] 00:00:00 Medical Group unlisted imaging order 2019-05-07 [facility] 00:00:00 Medical Group unlisted imaging order 2018-12-28 [facility] 00:00:00 Medical Group Cataract surgery 2012-06-05 [facility] Gurwinder n 00:00:00 Removal - procedure 2005-06-05 [facility] 00:00:00 Hysterectomy 1988-06-05 [facility] 00:00:00 Appendectomy 1979-06-05 [facility] 00:00:00 Breast implantation 1974-06-05 [facility] 00:00:00 Miscellaneous operations 1960-06-05 Erasmo Carballo 00:00:00 Appendectomy [facility] Breast Surgery [facility] Cataract Surgery [facility] Hysterectomy [facility] Esophagogastroduodenoscopy (Surg) [facility] Breast biopsy and related Joe Kong procedures Laparoscopy<sup>1</sup> [facility] Plan of Care Planned Activity Planned Date Details Comments Source Future Scheduled 2021-01-03 INFLUENZA VACCINE [place] Scientologist Test 00:00:00 [code = INFLUENZA VACCINE] Future Scheduled 2018-04-02 65+ PNEUMOCOCCAL Noel Scientologist Test 00:00:00 VACCINE (2 of 4 - PPSV23) [code = 65+ PNEUMOCOCCAL VACCINE (2 of 4 - PPSV23)] Future Scheduled 2002-01-05 BREAST CANCER Noel Ne thodist Test 00:00:00 SCREENING [code = BREAST CANCER SCREENING] Future Scheduled 2002-01-05 COLONOSCOPY SCREENING [place] [facility] Test 00:00:00 [code = COLONOSCOPY SCREENING] Future Scheduled 2002-01-05 SHINGLES VACCINES (#1) [place] [facility] Test 00:00:00 [code = SHINGLES VACCINES (#1)] Future Scheduled 1970-01-05 Hepatitis C screening [place] [facility] Test 00:00:00 (procedure) [code = 857462116] Future Scheduled 1968 COVID-19 VACCINE (1) William ston Scientologist Test 00:00:00 [code = COVID-19 VACCINE (1)] Encounters Start End Encounter Admission Attending Care Care Encounter Source Date/Time Date/Time Type Type Clinicians Facility Department ID 2020-08-19 2020-08-19 Elpidio Onofre [facility] [place] - [id number] M christian 00:00:00 00:00:00 MD Leno: [facility] - [address], [place] [address] , Ph. 2020-04-06 2020-04-06 Outpatient [facility] [id number] [address] [place] [address] 00:00:00 00:00:00 Vilma GOMEZ i 2020-03-24 2020-03-24 Outpatient [facility] [id number] [place] 00:00:00 00:00:00 PATRICIA, [address] 2020-03-24 2020-03-24 Outpatient [facility] [id number] [place] 00:00:00 00:00:00 LELKES, [address] 2020-03-24 2020-03-24 Outpatient [facility] [id number] [place] 00:00:00 00:00:00 PATRICIA, [address] 2020-02-20 2020-02-20 Elpidio Onofre MM [place] - [id number] M [facility] 00:00:00 00:00:00 MD Leno: [address] [address], [place] [address] , Ph. 2019-12-11 2019-12-11 Elpidio ADAMS [place] - [id number] M atagor 00:00:00 00:00:00 MD Leno: [address] [address], [place] [address] , Ph. 2019-10-29 2019-10-29 Elpidio Onofre MM [place] - [id number] M atagor 00:00:00 00:00:00 MD Leno: [address] [address], [place] [address] , Ph. 2019-07-18 2019-07-18 Simón AGUIAR [place] - [id number] M atagor 00:00:00 00:00:00 Agus Contreras MD: [facility] [address], [place] [address] , Ph. [phone] 2019-06-11 2019-06-11 Simón ADAMS [place] - [id number] M atagor 00:00:00 00:00:00 Agus Contreras MD: Medical Med[facility] l [address] [place] [address] [address], [place] [address] , Ph. [phone] 2019-05-22 2019-05-22 Elpidio Onofre MM [place] - [id number] M atagor 00:00:00 00:00:00 MD Leno: [address], [facility], [place] [address] , Ph. 2019-05-07 2019-05-07 Elpidio ADAMS [place] - [id number] M atagor 00:00:00 00:00:00 MD Leno: [address], [facility], [place] [address] , Ph. 2019-03-26 2019-03-26 Elpidio ADAMS [place] - [id number] M atagor 00:00:00 00:00:00 MD Leno: [address], [facility], [place] [address] , Ph. 2018-12-28 2018-12-28 Elpidio Onofre MM [place] - [id number] M atagor 00:00:00 00:00:00 MD Leno: [address], [facility], [place] [address] , Ph. 2018-05-31 2018-05-31 Elpidio ADAMS [place] - [id number] M atagor 00:00:00 00:00:00 MD Leno: [address], [facility], [place] [address] , Ph. 2016-05-31 2016-05-31 Outpatient Esau MHSL MHSL [id number] 06:55:00 23:59:00 Tee 2016-05-02 2016-05-02 Outpatient Navid MHSL MHSL [id number] 07:55:11 15:05:00 Shinil 00 Ignacia Results Test Description Test Time Test Comments Results Result Sour e Comments MRI Lumbar Spine 2020-03-24 Riri Rosen on Wo Contrast 17:37:13 Radiology Results Method ist 03/24/2020 5:40 PM CDT Exam: MRI of the lumbar spine without contrastHistory: Lumbar facet joint painComparison studies: NoneTechnique: Multiplanar multisequence MRI of the lumbar spine.Contrast: NoneComplications: NoneFINDINGS:Numbe r of non-rib bearing lumbar vertebral bodies: 5.Alignment: Normal lordosis.No scoliosis.Soft tissues: No signal abnormalities.Post erior paraspinal muscles: Fatty infiltration of the paraspinal musculature secondary to mild atrophy.Conus medullaris:Normal, ends at L1-L2.Cauda equina: No masses or arachnoiditis. Linear fat deposition at the filum terminale.Vertebra e: No fractures, infection or neoplasm.Degenerat hillary changes:L1-L2: Disc degeneration with decreased intervertebral space and loss of T2 signal. Mild disc bulge with patent canal and foramina.L2-L3: Disc degeneration with loss of T2 signal. Patent canal and foramina.L3-L4:Dis c degeneration with loss of T2 signal. Diffuse [...] significant canal stenosis.Sacrum and coccyx:Symmetric. No signal abnormalities.IMPR ESSION:1. Right subarticular disc protrusion at L4-L5 obliterates the ipsilateral recess, with possible impingement on the descending L5 nerve root the right side.2. Moderate facet hypertrophy at L4-L5 with synovitis changes. Other degenerative changes without significant (moderate or severe) canal stenosis or foraminal narrowing.. Potassium Level 2019-08-23 09:37:59 Test Item Value Reference Range Interpretation Comme nts Potassium Level (test code = Potassium Level) 3.3 mmol/L 3.5-5.1 L Basic Metabolic [id number] 08:39:57 Test Item Value Reference Range Interpretation Comments Sodium Level (test 132.0 mmol/L 135.0-145.0 L code = Sodium Level) Potassium Level (test >10.0 mmol/L 3.5-5.1 Critic al results code = Potassium called to E . peggy Level) at 08/23/2019 08:39:49 CDT by glenys. Read back and verified? yes Chloride Level (test 97 mmol/L 98-105 L code = Chloride Level) CO2 (test code = CO2) 22 mmol/L 22-29 Anion Gap (test code = 13 mmol/L 7-16 Anion Gap) BUN (test code = BUN) 25.90 mg/dL 8.00-23.00 H Creatinine Level (test 0.90 mg/dL 0.50-0.90 code = Creatinine Level) BUN/Creat Ratio (test 29 N code = BUN/Creat Ratio) Glucose Level (test 102 mg/dL 70-115 code = Glucose Level) Calcium Level (test 9.0 mg/dL 8.3-10.5 code = Calcium Level) Basic Metabolic [id number] 08:39:57 Test Item Value Reference Range Interpretation Comments Sodium Level (test 132.0 mmol/L 135.0-145.0 L code = Sodium Level) Potassium Level >10.0 mmol/L 3.5-5.1 Critical res ults (test code = called to E. tu bbs Potassium Level) at 0 08:39:49 CDT by glenys. Read back and verified? yes Chloride Level (test 97 mmol/L 98-105 L code = Chloride Level) CO2 (test code = 22 mmol/L 22-29 CO2) Anion Gap (test code 13 mmol/L 7-16 = Anion Gap) BUN (test code = 25.90 mg/dL 8.00-23.00 H BUN) Creatinine Level 0.90 mg/dL 0.50-0.90 (test code = Creatinine Level) BUN/Creat Ratio 29 N (test code = BUN/Creat Ratio) Glucose Level (test 102 mg/dL 70-115 code = Glucose Level) Calcium Level (test 9.0 mg/dL 8.3-10.5 code = Calcium Level) eGFR AA (test code = >60 N eGFR (e stimated eGFR AA) mL/min/1.73 m2 Glomerular Filtration Rate ) is an estimated va lue, calculated from the patient's serum creatinine usin g the MDRD equation. It is NOT the patient 's actual GFR. The eGFR provides a more clinically usef ul measure of kidn ey disease than se rum creatinine alone.This calculation may es sex and race in to account, if the information is provided. If th e race is not provided, and t he patient is -Roselia n, multiply by 1.2 12. If sex is not provided, and t he patient is fema le, multiply by 0.7 42. Results for pat ients <18 years of ag e have not been validated by e MDRD study and should be interpreted wit h caution. eGFR R esult Interpretation: eGFR > or = 60 is in the Normal RangeeGF R < 60 may mean kid steve diseaseeGFR < 1 5 may mean kidney failure Rang es recommended by the National Kidney Foundation, http://nkdep.ni h.gov Basic Metabolic [id number] 08:39:57 Test Item Value Reference Range Interpretation Comments Sodium Level (test 132.0 mmol/L 135.0-145.0 L code = Sodium Level) Potassium Level >10.0 mmol/L 3.5-5.1 Critical res ults (test code = called to [facility] Potassium Level) at 0 08:39:49 CDT by glenys. Read back and verified? yes Chloride Level (test 97 mmol/L 98-105 L code = Chloride Level) CO2 (test code = 22 mmol/L 22-29 CO2) Anion Gap (test code 13 mmol/L 7-16 = Anion Gap) BUN (test code = 25.90 mg/dL 8.00-23.00 H BUN) Creatinine Level 0.90 mg/dL 0.50-0.90 (test code = Creatinine Level) BUN/Creat Ratio 29 N (test code = BUN/Creat Ratio) Glucose Level (test 102 mg/dL 70-115 code = Glucose Level) Calcium Level (test 9.0 mg/dL 8.3-10.5 code = Calcium Level) eGFR AA (test code = >60 N eGFR (e stimated eGFR AA) mL/min/1.73 m2 Glomerular Filtration Rate ) is an estimated va lue, calculated from the patient's serum creatinine usin g the MDRD equation. It is NOT the patient 's actual GFR. The eGFR provides a more clinically usef ul measure of kidn ey disease than se rum creatinine alone.This calculation may es sex and race in to account, if the information is provided. If th e race is not provided, and t he patient is -Roselia n, multiply by 1.2 12. If sex is not provided, and t he patient is fema le, multiply by 0.7 42. Results for pat ients <18 years of ag e have not been validated by [facility] MDRD study and should be interpreted wit h caution. eGFR R esult Interpretation: eGFR > or = 60 is in the Normal RangeeGF R < 60 may mean kid steve diseaseeGFR < 1 5 may mean kidney failure Rang es recommended by the National Kidney Foundation, http://nkdep.ni h.gov eGFR Non-AA (test >60.00 N eGFR (bernice mated code = eGFR Non-AA) mL/min/1.73 m2 Glomer ular Filtration Rate ) is an estimated va lue, calculated from the patient's serum creatinine usin g the MDRD equation. It is NOT the patient 's actual GFR. The eGFR provides a more clinically usef ul measure of kidn ey disease than se rum creatinine alone.This calculation may es sex and race in to account, if the information is provided. If th e race is not provided, and t he patient is -Roselia n, multiply by 1.2 12. If sex is not provided, and t he patient is fema le, multiply by 0.7 42. Results for pat ients <18 years of ag e have not been validated by [facility] MDRD study and should be interpreted wit h caution. eGFR R esult Interpretation: eGFR > or = 60 is in the Normal RangeeGF R < 60 may mean kid steve diseaseeGFR < 1 5 may mean kidney failure Rang es recommended by the National Kidney Foundation, http://nkdep.ni h.gov Prothrombin Time and [id number] 08:30:21 Test Item Value Reference Range Interpretation Comments Prothrombin Time (test code = 12.2 seconds 9.8-13.4 Prothrombin Time) INR (test code = INR) 1.0 ratio 0.6-1.2 Partial Thromboplastin [id number] 08:30:21 Test Item Value Reference Range Interpretation Comments Partial Thromboplastin Time 33.10 seconds 24.39-37.25 (test code = Partial Thromboplastin Time) Complete Blood Count with [id number] 08:21:36 Test Item Value Reference Range Interpretation Comments WBC (test code = WBC) 6.9 x10 4.4-10.5 RBC (test code = RBC) 4.65 x10 3.75-5.20 Hgb (test code = Hgb) 10.7 g/dL 12.2-14.8 L MCV (test code = MCV) 75.70 fL 80.00-100.00 L Hct (test code = Hct) 35.2 % 36.5-44.4 L MCHC (test code = 30.40 g/dL 32.00-37.50 L MCHC) RDW CV (test code = 15.9 % 11.5-14.5 H RDW CV) MCH (test code = MCH) 23.0 pg 27.0-32.5 L Platelets (test code = 296.0 x10 140.0-440.0 Platelets) MPV (test code = MPV) 10.2 fL N Slide Review (test Auto Auto Result cr eated by code = Slide Review) GL_SJM_ SLIDE_REV_AUTO nRBC (test code = 0 N nRBC) NRBC Abs (test code = 0.00 x10 N NRBC Abs) IPF (test code = IPF) 0 % N Automated [id number] 08:21:36 Test Item Value Reference Range Interpretation Comments Neutro Auto (test code = Neutro 41.9 % 36.0-70.0 Auto) Lymph Auto (test code = Lymph Auto) 45.2 % 12.0-44.0 H Bethel Auto (test code = Bethel Auto) 10.5 % 0.0-11.0 Eos, Auto (test code = Eos, Auto) 1.7 % 0.0-7.0 Basophil Auto (test code = Basophil 0.4 % 0.0-2.0 Auto) Neutro Absolute (test code = Neutro 2.9 x10 1.6-7.4 Absolute) Lymph Absolute (test code = Lymph 3.11 x10 .50-4.60 Absolute) Bethel Absolute (test code = Bethel .72 x10 .00-1.20 Absolute) Eos Absolute (test code = Eos 0.12 x10 0.00-0.74 Absolute) Baso Absolute (test code = Baso 0.03 x10 0.00-0.21 Absolute) IG [id number] 08:21:36 Test Item Value Reference Range Interpretation Comments IG (test code = IG) 0.3 % 0.0-5.0 IG Abs (test code = IG Abs) 0 x10 N CBC W Auto Differential panel - [id number] 07:27:00 Test Item Value Reference Range Interpretation Comments white blood count (test code = 5.6 K/uL 4.0-11.5 white blood count) red blood count (test code = red 4.54 M/uL 3.80-5.20 blood count) hemoglobin (test code = 10.5 g/dL 10.5-15.7 hemoglobin) hematocrit (test code = 34.3 % 34.0-50.0 hematocrit) Erythrocyte mean corpuscular 75.6 fL 86-100 L volume [Entitic volume] (test code = 87703-1) mean corpuscular hemoglobin (test 23.1 pg 26.2-33.4 [...] 44.4-80.1 leukocytes in Blood (test code = 95960-9) Granulocytes Immature [#/volume] 0.0 K/uL 0.0-0.03 in Blood (test code = 85887-2) lymphocyte% (test code = 37.5 % 10.0-50.0 lymphocyte%) mono % (test code = mono %) 6.9 % 3.6-12.0 eos % (test code = eos %) 3.0 % 0.0-5.4 Basophils/100 leukocytes in 0.5 % 0.1-1.2 Unspecified specimen (test code = 32356-6) Neutrophils.band form [#/volume] 2.92 K/uL 1.56-6.13 in Blood (test code = 73099-6) Lymphocytes [#/volume] in 2.1 K/uL 1.18-3.74 Unspecified specimen by Automated count (test code = 15276-9) mono # (test code = mono #) 0.39 K/uL 0.24-0.86 eos # (test code = eos #) 0.17 K/uL 0.04-0.36 basophil # (test code = basophil 0.03 K/uL 0.01-0.08 #) NRBC% (test code = NRBC%) 0 /100 WBC 0-0.2 NRBC# (test code = NRBC#) 0 K/uL [facility] [id number] 07:27:00 NeutrophilsBandLymphocyteAtypical LymphMonocyteEosinophilMetamyelocyteMyelocytePlatelet EstimatePlatelet MorphologyDifferential comment-[facility] HospitalComprehensive [facility] 2000 panel - Serum or [id number] 07:27:00 Test Item Value Reference Range Interpretation [...] Serum or Plasma (test code = 6768-6) [facility] CenterTrop[facility] I.cardiac [Mass/volume] in [id number] 07:27:00 Test Item Value Reference Range Interpretation Comments cardiac troponin I (test code = cardiac <0.30 0.0-0.5 troponin I) [facility] CenterCreatine kinase.MB [Mass/volume] in Serum or Plasma 2019-06-29 07:27:00 Test Item Value Reference Range Interpretation Comments mass creatinine kinase-mb (test 1.7 NG/mL 0.0-3.6 code = mass creatinine kinase-mb) [facility] CenterTrop[facility] I.cardiac [Mass/volume] in [id number] 11:38:00 Test Item Value Reference Range Interpretation Comments cardiac troponin I (test code = cardiac <0.30 0.0-0.5 troponin I) [facility] CenterCreat[facility] kinase.MB [Mass/volume] in Serum or Plasma 2019-06-28 11:38:00 Test Item Value Reference Range Interpretation Comments mass creatinine kinase-mb (test 1.6 NG/mL 0.0-3.6 code = mass creatinine kinase-mb) [facility] [id number] 08:35:00 Test Item Value Reference Range Interpretation Comments Surgical pathology see separate pathology study (test code = report. 76009-5) [facility] I.cardiac [Mass/volume] in [id number] 06:27:00 Test Item Value Reference Range Interpretation Comments cardiac troponin I (test code = cardiac <0.30 0.0-0.5 troponin I) [facility] CenterCreat[facility] kinase.MB [Mass/volume] in Serum or Plasma 2019-06-28 06:27:00 Test Item Value Reference Range Interpretation Comments mass creatinine kinase-mb (test 1.7 NG/mL 0.0-3.6 code = mass creatinine kinase-mb) [facility] CenterCreat[facility] kinase [Enzymatic activity/volume] in Serum or [id number] 01:44:00 Test Item Value Reference Range Interpretation Comments creatine kinase (test code = creatine 40 U/L 20-180 kinase) [facility] I.cardiac [Mass/volume] in [id number] 01:44:00 Test Item Value Reference Range Interpretation Comments cardiac troponin I (test code = cardiac <0.30 0.0-0.5 troponin I) [facility] CenterCreat[facility] kinase.MB [Mass/volume] in Serum or Plasma 2019-06-28 01:44:00 Test Item Value Reference Range Interpretation Comments mass creatinine kinase-mb (test 1.5 NG/mL 0.0-3.6 code = mass creatinine kinase-mb) [facility]different[facility], [id number] 10:00:00 NeutrophilsBandLymphocyteAtypical LymphMonocytePlatelet EstimateMaMagnolia [facility] W Auto Differential panel - [id number] 10:00:00 Test Item Value Reference Range Interpretation Comments white blood count (test code = 7.0 K/uL 4.0-11.5 white blood count) red blood count (test code = red 4.56 M/uL 3.80-5.20 blood count) hemoglobin (test code = 11.0 g/dL 10.5-15.7 hemoglobin) hematocrit (test code = 34.2 % 34.0-50.0 hematocrit) Erythrocyte mean corpuscular 75.0 fL 86-100 L volume [Entitic volume] (test code = 39190-2) mean corpuscular hemoglobin (test 24.1 pg 26.2-33.4 [...] 44.4-80.1 leukocytes in Blood (test code = 22251-3) Granulocytes Immature [#/volume] 0.0 K/uL 0.0-0.03 in Blood (test code = 17612-6) lymphocyte% (test code = 44.7 % 10.0-50.0 lymphocyte%) mono % (test code = mono %) 8.6 % 3.6-12.0 eos % (test code = eos %) 0.9 % 0.0-5.4 Basophils/100 leukocytes in 0.6 % 0.1-1.2 Unspecified specimen (test code = 71727-9) Neutrophils.band form [#/volume] 3.16 K/uL 1.56-6.13 in Blood (test code = 05374-4) Lymphocytes [#/volume] in 3.1 K/uL 1.18-3.74 Unspecified specimen by Automated count (test code = 04450-5) mono # (test code = mono #) 0.60 K/uL 0.24-0.86 eos # (test code = eos #) 0.06 K/uL 0.04-0.36 basophil # (test code = basophil 0.04 K/uL 0.01-0.08 #) NRBC% (test code = NRBC%) 0 /100 WBC 0-0.2 NRBC# (test code = NRBC#) 0 K/uL [facility] CenterJlmabXSCUPKSGJF2385-38-44 14:00:000.2[facility] OUQDLBGXNW6651-41-02 14:00:005.5[facility] XekjsakSRVNCKOOLW1133-22-88 14:00:00 57.7[facility] CjkrvffFCYOKKGYYP6673-39-45 14:00:0033.5[facility]annHEMATOLOGY 2016-05-31 14:00:002.9[facility] JkcboguYTQMMKGZYC6990-48-96 14:00:004.9[facility] XqbdvslZHCKGINGNV9312-53-18 14:00:002.9[facility] UgydrntVFFKTFBYWT0087-08-70 14:00:000.5[facility] CeackppBORKIYIISL0579-00-53 14:00:000.4[facility] AIVKTYHSGV4173-46-59 14:00:000.0[facility] ZunneruQHKTTBTRJJ9475-73-57 14:00:00 13.3[facility] BotcctwLFOQBTRZKS1058-90-56 14:00:008.5[facility]annHEMATOLOGY 2016-05-31 14:00:004.72[facility] ShvxjksIHZXLMVUJI2505-41-61 14:00:0032.7[facility] QclyhriDMUNCJPCAZ8367-96-77 14:00:00 Test Item Value Reference Range Interpretation Comments MCH (test code = MCH) 28.2 pg 27.0-31.0 [facility] TsbzskxTRMUXGSLFX8163-24-96 14:00:0015.7[facility]annHEMATOLOGY 2016-05-31 14:00:0086.5[facility] OszfavvGIRWHCAMTN4806-72-30 14:00:0040.8[facility] BkpaqwpKIAUOPHYEC8665-86-44 14:00:009.6[facility] PkhqqmpIFZGDRSTSV9315-19-91 14:00:01317Pgkpmlhl TultaetGQPBETWWCV1660-70-39 14:00:00 Test Item Value Reference Range Interpretation Comments PT (test code = PT) 13.5 s 12.0-14.7 [facility] CmkwiyzWXLXNEKFOD0447-95-89 14:00:001.01[facility]annHEMATOLOGY 2016-05-31 14:00:00 Test Item Value Reference Range Interpretation Comments PTT (test code = PTT) 33.2 s 22.9-35.8 [facility] WgdtaslRYFCHPQZWX3061-58-47 14:00:15654Dltmvhib HermannHEMATOLOGY 2016-04-25 17:44:00 Test Item Value Reference Range Interpretation Comments MCH (test code = MCH) 28.2 pg 27.0-31.0 [facility] KhzvwfdELQKOHOJLO9062-30-79 17:44:0015.2[facility]annHEMATOLOGY 2016-04-25 17:44:0012.6[facility] ThqektnLZPZBVUSKA9170-87-13 17:44:0038.0[facility] LysgumtJPHFRKIFJL2278-91-30 17:44:0085.0[facility] FpcywfpZTTNGQDZTN1600-00-55 17:44:008.8[facility] UwvncwbWXCLXBPNIU4022-74-88 17:44:004.47[facility] DVJGADHGNS4470-50-88 17:44:000.1[facility] CkzkzziCGBPSQCQDL5864-69-60 17:44:000.1 [facility] GseoqcgUOJRJHVXJI1816-75-05 17:44:001.3[facility]annHEMATOLOGY 2016-04-25 17:44:006.7[facility] VdgwexnAVBFFVYFIJ7026-30-43 17:44:002.9[facility] CwkjvbvNNXCTQPUUM3700-57-32 17:44:000.6[facility] DawoxeqXBJIZIFKTL7822-54-91 17:44:0033.2[facility] KtispsbNFXVNQOBHI6962-23-43 17:44:005.1[facility] DZYGNCSFIP4504-67-98 17:44:000.6[facility] RgpthjsERJYUPDFLR5598-81-21 17:44:00 58.2[facility] HermannCHEM TSTKK4761-43-82 17:44:0097[facility] HermannCHEM PANEL 2016-04-25 17:44:11747Ukjvqxlw HermannCHEM NZCFS4812-43-82 17:44:0016[facility] HermannCHEM EHGIT9861-20-07 17:44:0027[facility] HermannCHEM PBRMQ0349-89-54 17:44:000.60[facility] HermannCHEM RFIDR8408-65-48 17:44:0097[facility] HermannCHEM JHDZH7497-32-16 17:44:004.0[facility] HermannCHEM WNNTF2237-83-84 17:44:009.0 [facility] HermannCHEM CVWEN1310-44-26 17:44:29702Ddzphphf HermannCHEM PANEL 2016-04-25 17:44:0013.0[facility] AlgjxthYOTAQCSACX2300-39-90 17:44:008.6[facility] TwlsuadCIUWTYSWTI9226-17-29 17:44:71544Gxuxpgiy LjryncfAPCAABLAOV1579-69-53 17:44:0033.2[facility] Haris
[2020-10-14 10:39] LABS: Absolute Lymphocytes (CBC) 2.6 K/uL (0.7-4.9); Basophils % 0.5 % (0-1.3); Hematocrit 32.2 % (36.0-45.0); Lymphocytes % 38.5 % (15.3-44.8); MPV 7.9 fL (7.6-11.3); RBC Red Blood Cell Count 4.19 M/uL (3.86-4.86)
[2020-10-14 10:45] LABS: Protime INR 1.06
[2020-10-14 11:08] LABS: Albumin 3.5 g/dL (3.4-5.0); Bilirubin Direct 0.3 mg/dL (0-0.2); Bilirubin Total 0.5 mg/dL (0.2-1.0); Magnesium 2.5 mg/dL (1.8-2.4); Potassium 4.1 mmol/L (3.5-5.1); Protein, Total 6.7 g/dL (6.4-8.2); Troponin (Emerg Dept Use Only) 0.06 ng/mL (0.0-0.045)
[2020-10-14] MEDS ORDERED: MORPHINE 2 MG/ML SYR ONE ×2 (11:23→16:07)
[2020-10-14] MEDS ORDERED: ASPIRIN 81 MG CHEWABLE TABLET ONE (11:23)
[2020-10-14] MEDS ORDERED: ONDANSETRON 4 MG/2 ML VIAL ONE (11:23)
[2020-10-14] MEDS ORDERED: ENOXAPARIN 80 MG/0.8 ML SQ ONE (11:24)
[2020-10-14] MEDS ORDERED: NA CHLORIDE 0.9% 1,000 ML ONE (11:24)
--- NOTE | 2020-10-14 11:37 | ER ---
Nurse's Notes [facility] Name: Gregoria Vela Age: 70 yrs Sex: Female : 1950 Arrival Date: 10/14/2020 Time: 10:06 Bed 20 Private MD: Diagnosis: Angina pectoris;Obesity, unspecified;Subsequent non-ST elevation (NSTEMI) myocardial infarction Presentation: 10/14 10:26 Chief complaint: Patient states: chest pain beginning last night, progressively tr6 worsening. now involving numbness and tingling in left arm and up to jaw line. Coronavirus screen: Client denies travel out of the [place] in the last 14 days. Ebola Screen: Patient negative for fever greater than or equal to 101.5 degrees Fahrenheit, and additional compatible Ebola Virus Disease symptoms Patient denies exposure to infectious person. Patient denies travel to an Ebola-affected area in the 21 days before illness onset. Initial Sepsis Screen: Does the patient meet any 2 criteria? No. Patient's initial sepsis screen is negative. Does the patient have a suspected source of infection? No. Patient's initial sepsis screen is negative. Risk Assessment: Do you want to hurt yourself or someone else? Patient reports no desire to harm self or others. Onset of symptoms was October 13, 2020. 10:26 Method Of Arrival: Ambulatory tr6 10:26 Acuity: ERIC 2 tr6 Triage Assessment: 10:46 General: Appears distressed, Behavior is cooperative, appropriate for age, anxious. tr6 Pain: Complains of pain in left chest, radiating down left arm and up to jaw line, beginning last night. progressively getting worse. EENT: No deficits noted. Neuro: No deficits noted. Cardiovascular: Reports chest pain, Rhythm is sinus rhythm. Respiratory: No deficits noted. GI: No deficits noted. : No deficits noted. Derm: No deficits noted. Musculoskeletal: No deficits noted. Historical: - Allergies: 10:44 Hydrocodone-Acetaminophen; tr6 10:44 Acetaminophen; tr6 - Home Meds: 10:44 Aspirin Oral [Active]; fenofibrate Oral [Active]; gemfibrocell [Active]; Isosorbide tr6 Mononitrate Oral [Active]; Prozac Oral [Active]; Premarin Oral [Active]; lisinopril Oral [Active]; Prevacid Oral [Active]; - PMHx: 10:46 CAD; Hyperlipidemia; Hypertension; LYMPHOMA; plate in head; skin cancer; cardiac stent; tr6 - Immunization history:: Adult Immunizations up to date. - Social history:: Smoking status: unknown. - Family history:: not pertinent. Screenin:47 Abuse screen: Denies threats or abuse. Denies injuries from another. Nutritional tr6 screening: No deficits noted. Tuberculosis screening: No symptoms or risk factors identified. Fall Risk None identified. Assessment: 10:48 Pain: Pain radiates to down left arm. tr6 10:48 Pain: Pain began suddenly, last night, progressively getting worse. tr6 10:48 Reassessment: see triage assessment. tr6 11:27 Reassessment: transferred to CT via stretcher. tr6 11:37 Reassessment: pt returned from CT. tr6 12:45 Reassessment: MD Pérez at bedside. tr6 Vital Signs: 10:26 BP 123 / 46; Pulse 81; Resp 18; Pulse Ox 100% ; tr6 10:28 Temp 97.9; tr6 10:49 BP 101 / 63; Pulse 81; Resp 18; Pulse Ox 99% ; tr6 10:58 Weight 82.55 kg; tr6 ED Course: 10:06 Patient arrived in ED. mr 10:24 Jason Cope MD is Attending Physician. ambreen 10:25 Tammy Man RN is Primary Nurse. tr6 10:27 Triage completed. tr6 10:42 No provider procedures requiring assistance completed. Inserted saline lock: 20 gauge tr6 in right forearm, using aseptic technique. Blood collected. 10:47 Arm band placed on right wrist. tr6 10:47 Patient has correct armband on for positive identification. Placed in gown. Bed in low tr6 position. Call light in reach. Side rails up X 1. continuous drier operator on. Pulse ox on. NIBP on. 10:48 Patient maintains SpO2 saturation greater than 95% on room air. tr6 11:31 CT Aorta for Dissection In Process Unspecified. EDMS 11:36 Ant Nascimento MD is Hospitalizing Provider. ambreen 12:29 XRAY Chest (1 view) In Process Unspecified. EDMS 19:52 Patient admitted, IV remains in place. tr6 Administered Medications: 11:09 Drug: Zofran (Ondansetron) 4 mg Route: IVP; Site: right forearm; tr6 12:50 Follow up: Response: No adverse reaction; Pain is decreased tr6 11:10 Drug: Lovenox (enoxaparin) 1 mg/kg Route: Sub-Q; Site: abdomen; tr6 12:51 Follow up: Response: No adverse reaction tr6 11:10 Drug: Lovenox (enoxaparin) 1 mg/kg Route: Sub-Q; Site: abdomen; tr6 11:10 Drug: Aspirin 81 mg Route: PO; tr6 12:51 Follow up: Response: No adverse reaction tr6 11:10 Drug: morphine 2 mg Route: IVP; Site: right forearm; tr6 12:50 Follow up: Response: No adverse reaction; Pain is decreased tr6 11:11 Drug: NS 0.9% 1000 ml Route: IV; Rate: 125 ml/hr; Site: right forearm; tr6 12:20 Drug: Lopressor (metoprolol TARTRATE) 50 mg Route: PO; tr6 12:50 Follow up: Response: No adverse reaction tr6 15:46 Drug: morphine 2 mg Route: IVP; Site: right forearm; tr6 15:51 Follow up: Response: Pain is decreased tr6 Outcome: 11:36 Decision to Hospitalize by Provider. [facility] 19:52 Admitted to Med/surg accompanied by tech, via stretcher, with chart. tr6 19:52 Condition: good 19:52 Instructed on the need for admit. 19:53 Patient left the ED. tr6 Signatures: Dispatcher [employer] Jason Tee MD MD cha Rivera, Mary mr Ramnanan, Tiffany, GELACIO RN tr6
--- NOTE | 2020-10-14 11:38 | EDPHYS ---
Physician Documentation [facility] Name: Gregoria Vela Age: 70 yrs Sex: Female : 1950 Arrival Date: 10/14/2020 Time: 10:06 Bed 20 Private MD: [place] Physician Jason Cope HPI: 10/14 11:29 This 70 yrs old Female presents to ER via Ambulatory with complaints of Chest ambreen Pain, Arm Pain. 11:29 The patient or guardian reports chest pain that is located primarily in the substernal ambreen area, anterior chest wall, left. Onset: last night. The pain radiates to the left arm, Associated signs and symptoms: Pertinent positives: nausea. The chest pain is described as a pressure. Duration: The patient or guardian reports multiple episodes, that wax and wane. Modifying factors: The symptoms are alleviated by remaining still, the symptoms are aggravated by exertion. Severity of pain: At its worst the pain was moderate in the emergency department the pain has improved mildly. The patient has experienced similar episodes in the past, a few times. Historical: - Allergies: 10:44 Hydrocodone-Acetaminophen; tr6 10:44 Acetaminophen; tr6 - Home Meds: 10:44 Aspirin Oral [Active]; fenofibrate Oral [Active]; gemfibrocell [Active]; Isosorbide tr6 Mononitrate Oral [Active]; Prozac Oral [Active]; Premarin Oral [Active]; lisinopril Oral [Active]; Prevacid Oral [Active]; - PMHx: 10:46 CAD; Hyperlipidemia; Hypertension; LYMPHOMA; plate in head; skin cancer; cardiac stent; tr6 - Immunization history:: Adult Immunizations up to date. - Social history:: Smoking status: unknown. - Family history:: not pertinent. ROS: 11:29 Constitutional: Negative for fever, chills, and weight loss, Eyes: Negative for injury, ambreen pain, redness, and discharge, ENT: Negative for injury, pain, and discharge, Neck: Negative for injury, pain, and swelling, Respiratory: Negative for shortness of breath, cough, wheezing, and pleuritic chest pain, Back: Negative for injury and pain, : Negative for injury, bleeding, discharge, and swelling, MS/Extremity: Negative for injury and deformity, Skin: Negative for injury, rash, and discoloration, Neuro: Negative for headache, weakness, numbness, tingling, and seizure, Psych: Negative for depression, anxiety, suicide ideation, homicidal ideation, and hallucinations, Allergy/Immunology: Negative for hives, rash, and allergies, Endocrine: Negative for neck swelling, polydipsia, polyuria, polyphagia, and marked weight changes, Hematologic/Lymphatic: Negative for swollen nodes, abnormal bleeding, and unusual bruising. 11:29 Cardiovascular: Positive for chest pain. 11:29 Abdomen/GI: Positive for abdominal pain, nausea, abdominal distension, of the right upper quadrant, left upper quadrant, right lower quadrant and left lower quadrant. Exam: 11:29 Constitutional: This is a well developed, well nourished patient who is awake, alert, ambreen and in no acute distress. Head/Face: Normocephalic, atraumatic. Eyes: Pupils equal round and reactive to light, extra-ocular motions intact. Lids and lashes normal. Conjunctiva and sclera are non-icteric and not injected. Cornea within normal limits. Periorbital areas with no swelling, redness, or edema. ENT: Nares patent. No nasal discharge, no septal abnormalities noted. Tympanic membranes are normal and external auditory canals are clear. Oropharynx with no redness, swelling, or masses, exudates, or evidence of obstruction, uvula midline. Mucous membranes moist. Neck: Trachea midline, no thyromegaly or masses palpated, and no cervical lymphadenopathy. Supple, full range of motion without nuchal rigidity, or vertebral point tenderness. No Meningismus. Chest/axilla: Normal chest wall appearance and motion. Nontender with no deformity. No lesions are appreciated. Cardiovascular: Regular rate and rhythm with a normal S1 and S2. No gallops, murmurs, or rubs. Normal PMI, no JVD. No pulse deficits. Respiratory: Lungs have equal breath sounds bilaterally, clear to auscultation and percussion. No rales, rhonchi or wheezes noted. No increased work of breathing, no retractions or nasal flaring. Back: No spinal tenderness. No costovertebral tenderness. Full range of motion. Female : Normal external genitalia. Skin: Warm, dry with normal turgor. Normal color with no rashes, no lesions, and no evidence of cellulitis. MS/ Extremity: Pulses equal, no cyanosis. Neurovascular intact. Full, normal range of motion. Neuro: Awake and alert, GCS 15, oriented to person, place, time, and situation. Cranial nerves II-XII grossly intact. Motor strength 5/5 in all extremities. Sensory grossly intact. Cerebellar exam normal. Normal gait. Psych: Awake, alert, with orientation to person, place and time. Behavior, mood, and affect are within normal limits. 11:29 Abdomen/GI: Inspection: abdomen appears normal, Bowel sounds: normal, Palpation: mild abdominal tenderness, in the left upper quadrant and left lower quadrant, Liver: no appreciated palpable abnormalities, Hernia: not appreciated. Vital Signs: 10:26 BP 123 / 46; Pulse 81; Resp 18; Pulse Ox 100% ; tr6 10:28 Temp 97.9; tr6 10:49 BP 101 / 63; Pulse 81; Resp 18; Pulse Ox 99% ; tr6 10:58 Weight 82.55 kg; tr6 MDM: 10:24 Patient medically screened. ambreen 11:32 Differential diagnosis: abnormal EKG, acute myocardial infarction, coronary artery ambreen disease congestive heart failure gastroesophageal reflux disease (GERD), herpes zoster, pancreatitis, pleurisy, pulmonary embolus, stable angina, thoracic aortic disection, unstable angina. HEART Score: History: Moderately Suspicious (1), ECG: Non specific repolarization disturbance / LBTB / PM (1), Age: > or = 65 years (2), Risk Factors: > or = 3 Risk factors for atherosclerotic disease (2), [Hypercholesterolemia] [Hypertension] [+ Family HX] [Obesity] Troponin: < or = 1 x Normal Limit (0), Total Score = 6. The patient was given aspirin in the Emergency Department. The patient's deep vein thrombosis risk score was calculated as follows: Total Score: 0. This patient was found to be at low risk for a deep vein thrombosis by using the Well's assessment criteria. The patient's pulmonary embolism risk score was calculated as follows: Total Score: 0-2 points. This patient was found to be at low risk for a pulmonary embolism by using the Well's assessment criteria. STEFANO Risk Score: 1 - patient's age is greater or equal to 65 years, 1 - Three or more CAD risk factors, 1- Known CAD, 1 - ASA use in past 7 days, 1 - Recent [<24hrs] Severe Angina, 1 - Elevated Cardiac Markers, TOTAL SCORE = 6. Data reviewed: vital signs, nurses notes, lab test result(s), EKG, radiologic studies, CT scan, plain films. Data interpreted: athletic monitor: rate is 81 beats/min, rhythm is regular, Pulse oximetry: on room air is 99 %. Test interpretation: by ED physician or midlevel provider: ECG, plain radiologic studies. 10/14 10:25 Order name: Basic Metabolic Panel [facility] 10/14 10:25 Order name: CBC with Diff; Complete Time: 10:57 [facility] 10/14 10:25 Order name: LFT's; Complete Time: 11:26 [facility] 10/14 10:25 Order name: Magnesium; Complete Time: 11: [facility] 10/14 10:25 Order name: NT PRO-BNP; Complete Time: 11: [facility] 10/14 10:25 Order name: PT-INR; Complete Time: 11:26 [facility] 10/14 10:25 Order name: Troponin (emerg Dept Use Only); Complete Time: 11: [facility] 10/14 10:26 Order name: Basic Metabolic Panel; Complete Time: 11:26 [facility] 10/14 10:34 Order name: Lipase [facility] 10/14 10:36 Order name: Lipase; Complete Time: 11: [facility] 10/14 12:28 Order name: Urine Dipstick-Ancillary [facility] 10/14 14:39 Order name: COVID-19 : Document "Date of Symptom Onset" if Symptomatic. bd 10/14 15:34 Order name: Troponin I [facility] 10/14 10:25 Order name: XRAY Chest (1 view) [facility] 10/14 10:25 Order name: EKG; Complete Time: 10:26 [facility] 10/14 10:25 Order name: Cardiac monitoring; Complete Time: 10:25 [facility] 10/14 10:25 Order name: EKG - Nurse/Tech; Complete Time: 10:41 [facility] 10/14 10:25 Order name: IV Saline Lock; Complete Time: 10:25 [facility] 10/14 10:25 Order name: Labs collected and sent; Complete Time: 10:41 [facility] 10/14 10:25 Order name: O2 Per Protocol; Complete Time: 10:41 [facility] 10/14 10:59 Order name: CT Aorta for Dissection [facility] 10/14 16:09 Order name: CORONAVIRUS [facility] 10/14 16:55 Order name: SARS-COV-2 RT PCR [facility] 10/14 10:25 Order name: O2 Sat Monitoring; Complete Time: 10:41 tr6 Administered Medications: 11:09 Drug: Zofran (Ondansetron) 4 mg Route: IVP; Site: right forearm; tr6 12:50 Follow up: Response: No adverse reaction; Pain is decreased tr6 11:10 Drug: Lovenox (enoxaparin) 1 mg/kg Route: Sub-Q; Site: abdomen; tr6 12:51 Follow up: Response: No adverse reaction tr6 11:10 Drug: Lovenox (enoxaparin) 1 mg/kg Route: Sub-Q; Site: abdomen; tr6 11:10 Drug: Aspirin 81 mg Route: PO; tr6 12:51 Follow up: Response: No adverse reaction tr6 11:10 Drug: morphine 2 mg Route: IVP; Site: right forearm; tr6 12:50 Follow up: Response: No adverse reaction; Pain is decreased tr6 11:11 Drug: NS 0.9% 1000 ml Route: IV; Rate: 125 ml/hr; Site: right forearm; tr6 12:20 Drug: Lopressor (metoprolol TARTRATE) 50 mg Route: PO; tr6 12:50 Follow up: Response: No adverse reaction tr6 15:46 Drug: morphine 2 mg Route: IVP; Site: right forearm; tr6 15:51 Follow up: Response: Pain is decreased tr6 Disposition: 10/14/20 11:36 Hospitalization ordered by Ant Nascimento for Inpatient Admission. Preliminary diagnosis are Angina pectoris, Obesity, unspecified, Subsequent non-ST elevation (NSTEMI) myocardial infarction. - Bed requested for Telemetry/MedSurg (Inpatient). - Status is Inpatient Admission. tr6 - Condition is Fair. - Problem is new. - Symptoms have improved. Signatures: Dispatcher [employer] EDAlma Delia Ortiz RN RN dw Anderson, Corey, MD MD cha Ramnanan, Tiffany, RN RN tr6 Corrections: (The following items were deleted from the chart) 10:37 10:34 Lipase ordered. [facility] 18:17 11:36 Hospitalization Ordered by Ant Nascimento MD for Inpatient Admission. Preliminary dw diagnosis is Angina pectoris; Obesity, unspecified; Subsequent non-ST elevation (NSTEMI) myocardial infarction. Bed requested for Telemetry/MedSurg (Inpatient). Status is Inpatient Admission. Condition is Fair. Problem is new. Symptoms have improved. ambreen 19:53 18:17 10/14/2020 11:36 Hospitalization Ordered by Ant Nascimento MD for Inpatient tr6 Admission. Preliminary diagnosis is Angina pectoris; Obesity, unspecified; Subsequent non-ST elevation (NSTEMI) myocardial infarction. Bed requested for Telemetry/MedSurg (Inpatient). Status is Inpatient Admission. Condition is Fair. Problem is new. Symptoms have improved. dw
--- NOTE | 2020-10-14 11:56 | RAD REPORT ---
EXAM DESCRIPTION: CT - Angio Aorta For Dissection - 10/14/2020 11:32 am CLINICAL HISTORY: Chest pain radiating to the back. CHEST PAIN COMPARISON: Angio Aorta For Dissection dated 08/28/2017 TECHNIQUE: CT angiography of the aorta was performed with MIPs. All CT scans are performed using dose optimization technique as appropriate and may include automated exposure control or mA/KV adjustment according to patient size. FINDINGS: A left aortic arch is present with normal branching pattern of the great vessels.No acute aortic finding is seen such as aneurysm, penetrating ulcer or dissection. The celiac axis, SMA, RON and renal arteries are patent. Mild abdominal aortic atherosclerosis. No evidence of pulmonary embolism. The lungs are clear. The liver demonstrates no focal mass or biliary dilatation.The spleen, pancreas, adrenal glands and k idneys are within normal limits for arterial phase imaging. No bowel obstruction, free fluid or abscess.No pathologic enlarged lymphadenopathy identified. No fracture or worrisome bone lesion seen. IMPRESSION: No acute aortic finding is demonstrated.
[2020-10-14 12:28] LABS: Urine Blood Negative (Negative); Urine Glucose Negative (Negative); Urine Protein Negative (Negative)
[2020-10-14] MEDS ORDERED: METOPROLOL TAR 50 MG TAB ONE (12:38)
--- NOTE | 2020-10-14 12:40 | RAD REPORT ---
EXAM DESCRIPTION: RAD - Chest Single View - 10/14/2020 12:29 pm CLINICAL HISTORY: CHEST PAIN Chest pain. COMPARISON: Chest Single View dated 04/27/2020; Chest Single View dated 08/26/2017 FINDINGS: Portable technique limits examination quality. The lungs are grossly clear. The heart is upper limit of normal in size. No displaced fractures. IMPRESSION: No acute intrathoracic process suspected.
[2020-10-14] MEDS ORDERED: ACETAMINOPHEN 500 MG TAB PO PRN ×2 (12:48→14:35)
[2020-10-14] MEDS ORDERED: ALBUTEROL 2.5 MG/3 ML NEB SOL NEB PRN ×2 (12:48→14:35)
[2020-10-14] MEDS ORDERED: ONDANSETRON 4 MG/2 ML VIAL IV PRN ×2 (12:55→14:35)
[2020-10-14] MEDS ORDERED: NITROGLYCERIN 0.4 MG/TAB SL PRN (13:04)
--- NOTE | 2020-10-14 13:07 | P.HP ---
Certification for Inpatient Patient admitted to: Inpatient With expected LOS: >2 Midnights Patient will require the following post-hospital care: None Practitioner: I am a practitioner with admitting privileges, knowledge of patient current condition, hospital course, and medical plan of care. Services: Services provided to patient in accordance with Admission requirements found in Title 42 Section 412.3 of the Code of Federal Regulations <KatJaceksandro Sher - Last Filed: 10/14/20 16:21> Patient History Date of Service: 10/14/20 Primary Care Provider: Chest pain Reason for admission: Chest pain History of Present Illness: Patient is a 70-year-old female with a past medical history significant for hypertension, lymphoma, glaucoma, GERD, hyperlipidemia who presents with complaint of chest pain onset yersterday. Patient reported that pain is located in the substernal chest area with radiation to her neck, jaw, left shoulder\arm. Patient reports associated signs and symptoms of left arm numbness\tingling, dizziness, diaphoresis and shortness of breath. Patient denies any other signs or symptoms. Symptoms are aggravated or relived by nothing. Patient decided to present to the hospital due to worsening symptoms. - Past Medical/Surgical History Has patient received pneumonia vaccine in the past: Yes Diabetic: No -: lymphoma; Hypertension; Hyperlipidemia; skin cancer; -: GERD -: Hysterectomy -: Acrylic plate in head -: Cataracts - Family History Mother -: Heart disease, Hypertension, Diabetes, Cancer Father -: Heart disease, Hypertension, Diabetes, Cancer - Social History Smoking Status: Unknown if ever smoked Alcohol use: No CD- Drugs: No Caffeine use: Yes Place of Residence: Home <Wicho Stephens - Last Filed: 10/14/20 16:21> Date of Service: 10/15/20 <Ant Nascimento - Last Filed: 10/15/20 20:11> Allergies latex Allergy (Verified 10/14/20 19:53) Hives/Rash Latex, Natural Rubber Allergy (Verified 10/14/20 19:53) Hives/Rash acetaminophen [From Tylenol] Adverse Reaction (Verified 10/14/20 19:53) Rash Home Medications: Bimatoprost [Lumigan] 1 drop EACH EYE DAILY 6PM 08/27/17 Estrogens,Conj [Premarin*] 1.25 mg PO DAILY 08/27/17 Fenofibrate [Tricor*] 145 mg PO DAILY 6PM 08/27/17 Isosorbide Mononitrate [Isosorbide Mononitrate ER] 30 mg PO DAILY 08/27/17 Lisinopril/Hydrochlorothiazide [Lisinopril-Hctz 20-12.5 mg Tab] 1 tab PO BID 6AM 6PM 08/27/17 Aspirin [Aspirin EC] 81 mg PO DAILY 10/14/20 Famotidine 20 mg PO DAILY 10/14/20 Icosapent Ethyl [Vascepa] 1 cap PO BID 10/14/20 Prasugrel HCl 1 tab PO BID 10/14/20 hydrOXYzine HCL [Atarax] 1 tab PO BID 10/14/20 Review of Systems General: Other (Diaphoresis ), Unremarkable Eyes: Unremarkable ENT: Unremarkable Respiratory: Shortness of Breath Cardiovascular: Chest Pain Gastrointestinal: Unremarkable Genitourinary: Unremarkable Musculoskeletal: Unremarkable Integumentary: Unremarkable Neurological: Other (Dizziness, Left arm numbness\tingling ) <Wicho Stephens E - Last Filed: 10/14/20 16:21> Physical Examination - Physical Exam General: Alert, In no apparent distress, Oriented x3 HEENT: Atraumatic, PERRLA, Mucous membr. moist/pink, EOMI, Sclerae nonicteric Neck: Supple, 2+ carotid pulse no bruit, No LAD, Without JVD or thyroid abnormality Respiratory: Clear to auscultation bilaterally, Normal air movement Cardiovascular: No edema, Regular rate/rhythm, Normal S1 S2 Capillary refill: <2 Seconds Gastrointestinal: Normal bowel sounds, Non-distended, No tenderness Musculoskeletal: No clubbing, No swelling, No tenderness Integumentary: No rashes Neurological: Normal gait, Normal speech, Normal strength at 5/5 x4 extr, Normal tone, Normal affect Lymphatics: No axilla or inguinal lymphadenopathy External genitalia: Deferred Rectal: Deferred - Studies Laboratory Data (last 24 hrs) 10/14/20 10:34: Lipase Cancelled 10/14/20 10:28: PT 12.2, INR 1.06 10/14/20 10:28: WBC 6.60, Hgb 10.1 L, Hct 32.2 L, Plt Count 264 10/14/20 10:28: Sodium 136, Potassium 4.1, BUN 20 H, Creatinine 0.90, Glucose 101, Magnesium 2.5 H D, Total Bilirubin 0.5, AST 32, ALT 37, Alkaline Phosphatase 31 L, Lipase 115 <Wicho Stephens - Last Filed: 10/14/20 16:21> Assessment and Plan - Plan --Chest pain of unclear etiology. It Quality Analyst consulted. We will trend serial troponins. Telemetry. Echocardiogram pending. It Quality Analyst plans a [facility] in am. Further management per varnish inspector. --Hypertension. Stable. Continue home meds. --Hx of Lymphoma. Status unknown. Patient follow up with O/P Oncologist. --Glaucoma. Continue home med --GERD. Continue home med. --Hyperlipidemia. Continue statin --DVT prophylaxis with Heparin subQ Discharge Plan: Home Plan to discharge in: Greater than 2 days - Advance Directives Does patient have a Living Will: No Does patient have a Durable POA for Healthcare: No - Code Status/Comfort Care Code Status Assessed: Yes Code Status: Full Code Critical Care: No <Wicho Stephens - Last Filed: 10/14/20 16:21>
[2020-10-14] MEDS ORDERED: TRAMADOL HCL 50 MG TAB PO PRN (13:16)
[2020-10-14] MEDS ORDERED: ENOXAPARIN 40 MG/0.4 ML SQ SCH (14:00)
[2020-10-14] MEDS ORDERED: HEPARIN 5000 UNIT/ML 1 ML VIAL SQ SCH (17:00)
[2020-10-14] MEDS ORDERED: HOME MED 1 EA UNK (Lansoprazole [Prevacid] 15 MG Capsule.Dr) PO SCH (18:00)
[2020-10-14] MEDS ORDERED: BIMATOPROST OPHTH DROPS/2.5 ML BTL OPTH SCH (18:00)
[2020-10-14] MEDS ORDERED: FENOFIBRATE 160 MG TAB PO SCH (18:00)
[2020-10-14] MEDS ORDERED: PANTOPRAZOLE 40MG TABLET PO SCH (18:00)
[2020-10-14] MEDS ORDERED: HOME MED 1 EA UNK (Lisinopril/Hydrochlorothiazide [Lisinopril-Hctz 20-12.5 Mg Tab] Tablet) PO SCH (18:00)
[2020-10-14 20:08] VITALS: BMI 34.2
[2020-10-14] MEDS: ASPIRIN EC 325 MG TABLET PO SCH (20:18)
[2020-10-14] MEDS ORDERED: HOME MED 1 EA UNK (Aspirin [Aspirin Ec 325 Mg] 325 MG Tablet.Dr) PO SCH (21:00)
[2020-10-14 21:05] LABS: Urine Appearance CLEAR (Clear); Urine Bilirubin NEGATIVE (Negataive); Urine Blood NEGATIVE (Negative); Urine Color YELLOW (Yellow); Urine Glucose NEGATIVE (Negative); Urine Protein NEGATIVE (Negative); Urine Specific Gravity 1.025 (1.005-1.030); Urine Urobilinogen 0.2 mg/dL (0.2-1.0); Urine pH 6.5 (5.0-7.0)
[2020-10-14 21:25] LABS: Urine Microscopic Reflex NO UMIC
[2020-10-15] MEDS: NA CHLORIDE 0.9% 1,000 ML IV SCH ×2 (00:09→13:20)
[2020-10-15] MEDS ORDERED: FAMOTIDINE 20 MG/2 ML VIAL IV ONE (01:01)
[2020-10-15 04:27] LABS: Protime INR 1.09
[2020-10-15 04:31] LABS: Absolute Lymphocytes (CBC) 2.4 K/uL (0.7-4.9); Basophils % 0.8 % (0-1.3); Hematocrit 28.7 % (36.0-45.0); Lymphocytes % 48.5 % (15.3-44.8); MPV 8.2 fL (7.6-11.3); RBC Red Blood Cell Count 3.75 M/uL (3.86-4.86)
[2020-10-15 04:33] LABS: Potassium 3.9 mmol/L (3.5-5.1)
[2020-10-15] MEDS: ASPIRIN EC 325 MG TABLET PO SCH (08:22)
[2020-10-15] MEDS ORDERED: FLUOXETINE 20 MG CAP PO SCH (09:00)
[2020-10-15] MEDS ORDERED: HOME MED 1 EA UNK (Fluoxetine Hcl [Fluoxetine Hcl] 20 MG Tablet) PO SCH (09:00)
[2020-10-15] MEDS ORDERED: POTASSIUM CL SA 10 MEQ TAB PO ONE (09:00)
[2020-10-15] MEDS ORDERED: lisinopriL 20 MG TAB PO SCH (09:00)
[2020-10-15] MEDS ORDERED: hydroCHLOROthiazide 12.5 MG CAP PO SCH (09:00)
[2020-10-15] MEDS ORDERED: ISOSORBIDE MONO SR 30 MG TAB PO SCH (09:00)
[2020-10-15 09:54] VITALS: TEMP 96.6
[2020-10-15] MEDS ORDERED: HEPA 1000U/500MLS 1,000 UNIT/500 ML BAG IV ONE (11:16)
[2020-10-15] MEDS ORDERED: LIDOCAINE 1% 20 ML MDV ONE (11:16)
[2020-10-15] MEDS ORDERED: FENTANYL CITR 100 MCG/2 ML ONE (11:18)
[2020-10-15] MEDS ORDERED: NA CHLORIDE 0.9% 0 ML ONE (11:18)
[2020-10-15] MEDS ORDERED: ATROPINE SULF 1 MG/10 ML SYR IV ONE (11:18)
[2020-10-15] MEDS ORDERED: MIDAZOLAM HCL 2 MG/2 ML INJ ONE ×2 (11:18→11:31)
[2020-10-15] MEDS ORDERED: NITROGLYCERIN/D5W 0 MG/0 ML BTL IV ONE (11:19)
[2020-10-15] MEDS ORDERED: NITROGLYCERIN 100 MCG/ML SYR (for cath lab use only) IV ONE (11:19)
[2020-10-15 15:43] VITALS: O2SAT 99
[2020-10-15 15:44] VITALS: BP 134/61
--- NOTE | 2020-10-15 15:59 | CON ---
Date of Consultation: 10/14/2020 Reason For Consultation: Unstable angina. History Of Present Illness: Ms. Vela is a 70-year-old woman who is a patient of Dr. Devon Godwin i [facility]. Has had an LAD stent in the past. She has a history of hypertension, dyslipidemia, fami ly history of heart disease. Came in with substernal chest pressure radiating to the left arm that h as been going on for about 36 hours. EKG showed possible anterolateral ischemia. Troponin was negat hillary. Creatinine was normal. Continued to have chest pain despite traditional treatment with aspirin , beta-blockers, and Lovenox as well as statin. Past Medical History: As stated above. Allergies: SHE IS ALLERGIC TO TYLENOL. Review of Systems: Negative. Social History: Negative. Family History: Noncontributory. Medications: Include aspirin, Effient, metoprolol and statin. Physical Examination: Vital Signs: Stable, afebrile. HEENT: Negative. Neck: Supple without any bruit, lymphadenopathy, JVD, or thyromegaly. Chest: Clear to auscultation and percussion. Cardiac: Revealed a regular rhythm and rate. No murmurs, gallops, or rubs. Abdomen: Benign. Extremities: Revealed no clubbing, cyanosis, or edema. Diagnostic Data: As stated earlier. Impression And Plan: This is a patient with a history of LAD stent approximately a year ago, symptom s of chest pain radiating to the left arm with shortness of breath and diaphoresis, abnormal EKG. I think it is best to take her to the mechanical laboratory technician to define her coronary anatomy. The patient understands the risk and the benefits of the procedure. She agreed to proceed. Rest of her problems are stable at this point. Continue present medical regimen. We will see what the catheterization shows tomorr ow before making any further decisions. BRYON/MODL Voice ID: [id number] Report ID: [id number]
--- NOTE | 2020-10-15 20:17 | P.DS ---
Admission Date: 10/14/20 Discharge Date: 10/15/20 Primary Care Provider: Chest pain Disposition: ROUTINE DISCHARGE Discharge Condition: FAIR Reason for Admission: Chest pain Consultations: Cardiology - Dr. Wall Procedures: CXR (10/14): The lungs are grossly clear. The heart is upper limit of normal in size. No displaced fract CT Dissection (10/14): A left aortic arch is present with normal branching pattern of the great vessels.No acute aortic finding is seen such as aneurysm, penetrating ulcer or dissection. The celiac axis, SMA, RON and renal arteries are patent. Mild abdominal aortic atherosclerosis. No evidence of pulmonary embolism. The lungs are clear. The liver demonstrates no focal mass or biliary dilatation.The spleen, pancreas, adrenal glands and kidneys are within normal limits for arterial phase imaging. No bowel obstruction, free fluid or abscess.No pathologic enlarged lymphadenopathy identified. No fracture or worrisome bone lesion seen. Left heart cath (10/15): report unavailable at time of discharge, but no significant stenosis, did not requiring stenting. Problem List: Chest Pain Hypertension Glaucoma GERD HLD h/o lymphoma Brief History of Present Illness: 70-year-old female with a past medical history significant for hypertension, lymphoma, glaucoma, GERD, hyperlipidemia who presents with complaint of chest pain onset yersterday. Patient reported that pain is located in the substernal chest area with radiation to her neck, jaw, left shoulder\arm. Patient reports associated signs and symptoms of left arm numbness\tingling, dizziness, diaphoresis and shortness of breath. Patient denies any other signs or symptoms. Symptoms are aggravated or relived by nothing. Patient decided to present to the hospital due to worsening symptoms. Hospital Course: Patient's troponins trended slightly upward, peaking at 0.13. Cardiology was consulted and patient was taken for cardiac catheterization. She was noted to not have significant coronary artery stenosis, and did not undergo any stenting or other procedures. ACS was effectively ruled out. Her CT chest was also without any acute findings. She was discharged home, to continue current medications. She was noted to have low-normal blood pressure and advised to monitor her blood pressure over the next few days and restart her BP meds when needed. Follow up with PCP in 3-5 days. Follow up with Process Lead in the next few weeks. Vital Signs/Physical Exam: Temp Pulse Resp BP Pulse Ox 96.6 F L 66 16 134/61 95 10/15/20 09:51 10/15/20 13:35 10/15/20 13:35 10/15/20 13:35 10/15/20 08:00 General: Alert, In no apparent distress, Oriented x3 HEENT: Mucous membr. moist/pink, Sclerae nonicteric Neck: Supple, JVD not distended Respiratory: Clear to auscultation bilaterally, Normal air movement Cardiovascular: No edema, Regular rate/rhythm, Normal S1 S2 Gastrointestinal: Soft and benign, Non-distended, No tenderness Musculoskeletal: No tenderness, No warmth Integumentary: No rashes Neurological: Normal speech, Cranial nerves 3-12 intact, Normal affect Laboratory Data at Discharge: WBC 4.90 K/uL (4.3-10.9) D 10/15/20 03:37 Hgb 9.6 g/dL (12.0-15.0) L 10/15/20 03:37 Hct 28.7 % (36.0-45.0) L 10/15/20 03:37 Plt Count 215 K/uL (152-406) 10/15/20 03:37 PT 12.6 SECONDS (9.5-12.5) H 10/15/20 03:37 INR 1.09 10/15/20 03:37 Sodium 139 mmol/L (136-145) 10/15/20 03:37 Potassium 3.9 mmol/L (3.5-5.1) 10/15/20 03:37 BUN 22 mg/dL (7-18) H 10/15/20 03:37 Creatinine 0.97 mg/dL (0.55-1.3) 10/15/20 03:37 Glucose 106 mg/dL (74-106) 10/15/20 03:37 Magnesium 2.5 mg/dL (1.8-2.4) H D 10/14/20 10:28 Total Bilirubin 0.5 mg/dL (0.2-1.0) 10/14/20 10:28 AST 32 U/L (15-37) 10/14/20 10:28 ALT 37 U/L (12-78) 10/14/20 10:28 Alkaline Phosphatase 31 U/L (45-117) L 10/14/20 10:28 Troponin I Cancelled 10/15/20 02:28 Lipase Cancelled 10/14/20 10:34 Home Medications: RX: Bimatoprost [Lumigan] 1 drop EACH EYE DAILY 6PM 08/27/17 RX: Estrogens,Conj [Premarin*] 1.25 mg PO DAILY 08/27/17 RX: Fenofibrate [Tricor*] 145 mg PO DAILY 6PM 08/27/17 RX: Isosorbide Mononitrate [Isosorbide Mononitrate ER] 30 mg PO DAILY 08/27/17 RX: Lisinopril/Hydrochlorothiazide [Lisinopril-Hctz 20-12.5 mg Tab] 1 tab PO BID 6AM 6PM 08/27/17 RX: Aspirin [Aspirin EC] 81 mg PO DAILY 10/14/20 RX: Famotidine 20 mg PO DAILY 10/14/20 RX: Icosapent Ethyl [Vascepa] 1 cap PO BID 10/14/20 RX: Prasugrel HCl 1 tab PO BID 10/14/20 RX: hydrOXYzine HCL [Atarax] 1 tab PO BID 10/14/20 Diet: AHA Activity: Ad jose g Followup: Regis Wall MD [ACTIVE - CAN ADMIT] - JOSSE LOAIZA [Primary Care Provider] - Time spent managing pt's care (in minutes): 40
--- NOTE | 2020-10-15 21:35 | OP ---
Surgeon: Regis Wall MD Medical Front Desk Coordinator: Mr. Sixto Clark. Indication: The patient was admitted by Dr. Nascimento on 10/14/2020 with unstable angina, has a history of coronary artery disease. Procedure In Detail: The patient was brought to the worm farm laborer today, prepped and draped in a routine sterile fashion. Given Versed and fentanyl for sedation. A 6-Mexican sheath introduced in the right common femoral artery successfully using the Seldinger technique. Angiography there was normal. Ang io-Seal was used to close the case. Left JL4 and JR4 catheters were used to cannulate the left main and right main respectively. She has some mild plaquing throughout the RCA. She had a normal circum flex. She had a 20% to 30% ostial LAD, a patent LAD stent proximally. There were no complications. Blood Loss: 5 mL. Anesthesia: Total conscious sedation 45 minutes. Postoperative Diagnosis: Mild coronary artery disease. Plan: Continue medical therapy. Plan: The patient remained at bedrest for 2 hours after the procedure and then she can go home after that for followup in my office in the next 2 to 4 weeks. BRYON/DECLAN Voice ID: [id number] Report ID: [id number]
--- NOTE | 2020-10-16 08:12 | ECHO ---
HEIGHT: 5 ft 1 in WEIGHT: 181 lb 1 oz DATE OF STUDY: 10/14/[address]: Wicho Stephens 2-DIMENSIONAL: YES M.MODE: YES DOPPLER: NO COLOR FLOW: NO TDS: NO PORTABLE: NO DEFINITY: NO BUBBLE STUDY: NO DIAGNOSIS: CHEST PAIN CARDIAC HISTORY: CATHERIZATION: YES SURGERY: NO PROSTHETIC VALVE: NO PACEMAKER: NO MEASUREMENTS (cm) DIASTOLIC (NORMALS) SYSTOLIC (NORMALS) IVSd 1.0 (0.6-1.2) LA Diam 3.3 (1.9-4.0) LVEF 55-60% LVIDd 4.4 (3.5-5.7) LVIDs 2.4 (2.0-3.5) %FS 44% LVPWd 1.1 (0.6-1.2) Ao Diam 2.4 (2.0-3.7) 2 DIMENSIONAL ASSESSMENT: RIGHT ATRIUM: NORMAL LEFT ATRIUM: NORMAL RIGHT VENTRICLE: NORMAL LEFT VENTRICLE: NORMAL TRICUSPID VALVE: NORMAL MITRAL VALVE: NORMAL PULMONIC VALVE: NORMAL AORTIC VALVE: NORMAL PERICARDIAL EFFUSION: NONE AORTIC ROOT: NORMAL LEFT VENTRICULAR WALL MOTION: DOPPLER/COLOR FLOW: NOT REQUESTED. COMMENTS: 2D ECHOCARDIOGRAM ONLY. NORMAL LEFT VENTRICULAR EJECTION FRACTION 55-60%. NORMAL WALL MOTION. TECHNOLOGIST: Slim FONTANA
== END 2020-10-15 16:17 | disposition home or self-care (01) | DRG 287 ==
LOC: ER 10:02 → ERHOLD 12:48 → 2ND 19:17
PROVIDERS: ADMIT Hospitalist; ATTEND Hospitalist
PROC: 4A023N7 Measurement of Cardiac Sampling and Pressure, Left Heart, Percutaneous Approach (ICD-10-PCS; principal; 2020-10-15)
PROC: B2111ZZ Fluoroscopy of Multiple Coronary Arteries using Low Osmolar Contrast (ICD-10-PCS; 2020-10-15)
DX: I25.110 Atherosclerotic heart disease of native coronary artery with unstable angina pectoris (principal); I10 Essential (primary) hypertension; K21.9 Gastro-esophageal reflux disease without esophagitis; H40.9 Unspecified glaucoma; E78.5 Hyperlipidemia, unspecified; Z79.82 Long term (current) use of aspirin; Z79.899 Other long term (current) drug therapy; Z95.5 Presence of coronary angioplasty implant and graft; Z85.828 Personal history of other malignant neoplasm of skin; Z90.710 Acquired absence of both cervix and uterus; Z88.8 Allergy status to other drugs, medicaments and biological substances; Z91.040 Latex allergy status; Z20.822 Contact with and (suspected) exposure to COVID-19
CPT/HCPCS: 36415; 71045; 71275; 74175; 80048; 80076; 81003; 83690; 83735; 83880; 84484; 85025; 85610; 93307; 93454; 96372; 96374; 96375; 99285; C1760; C1893; J0583; J1644; J2250; J2270; J2405; J3010; J7030; Q9967; U0003

== ENCOUNTER 2021-06-08 17:09 | Emergency (ER) | payer BC, OTHER ==
--- OUTSIDE RECORDS SUMMARY | 2021-06-08 17:12 | XMS REPORT | Clinical Summary ---
:1950 Author Organization [facility] MD [facility] Center Address [address] [place] [address] Care Team Providers Name Role Phone Elpidio Burr Unavailable Elpidio Burr Unavailable Devon Godwin MD Unavailable Shikha Shoemaker MD Unavailable Nikky Kramer MD Primary Care Provider Allergies Active Allergy Reactions Severity Noted Date Comments Acetaminophen Rash Low 06/15/2016 Medications Medication Sig Dispensed Refills Start Date End Date Status acyclovir (ZOVIRAX) 200 Take 2 capsules 0 Active mg capsule by mouth as needed. acyclovir (ZOVIRAX) 5% Apply 1 0 Active cream application topically to affected area(s) as needed. fenofibrate Take 1 tablet by 0 A ctive nanocrystallized mouth daily. (TRICOR) 145 mg tablet FLUoxetine (PROzac) 20 Take 1 capsule by 0 Active mg capsule mouth daily. isosorbide mononitrate Take 1 tablet by 0 Active (IMDUR) 30 mg 24 hr mouth daily. tablet lisinopril-hydrochlorot Take 1 tablet by 0 Active hiazide mouth twice (PRINZIDE,ZESTORETIC) daily. 20-12.5 mg per tablet estrogens, conjugated, Take 1 tablet by 0 Active (PREMARIN) 1.25 mg mouth daily. tablet traMADol (ULTRAM) 50 mg Take 1 tablet by 0 Active tablet mouth every 6 (six) hours as needed. carisoprodol (SOMA) 350 Take 1 tablet by 0 Active mg tablet mouth as needed. calcium carbonate Chew 2 tablets as 0 Active (TUMS) 1000 mg (400 mg needed. elemental calcium) chewable tablet diethylpropion 25 mg TK 1 T PO TID 0 03/24/2016 Active tab BEFORE MEALS hydrOXYzine HCl TAKE 1 OR 2 60 tablet 5 01/01/2017 A ctive (ATARAX) 25 mg TABLETS BY MOUTH tabletIndications: EVERY NIGHT AT Other pruritus, BEDTIME NEEDED Dermatographic FOR ITCHING. urticaria Additional Information Patient taking differently: Patient states that she take 50 mg in the morning and 50 mg in the evening, Reason: Other, Reported on 10/04/2019 HYDROXYZINE PAMOATE ORAL Take 100 mg by mouth daily. 0 Active Patient states that she takes this medication in the middle of the day. aspirin 81 mg EC tablet Take 81 mg by mouth daily. 0 Active amLODIPine (NORVASC) 5 mg Take 5 mg by mouth daily. 0 Active tablet atorvastatin (LIPITOR) 40 mg Take 40 mg by mouth at 0 08/06/2019 Active tablet bedtime. fluocinolone 0.01 % oil Patient uses this 2-4 times a 0 01/28/2019 Active day clopidogrel (PLAVIX) 75 mg Take 75 mg by mouth daily. 0 09/25/2019 Active tablet LUMIGAN 0.01 % ophthalmic drops Administer 1 drop to both 0 09/21/2019 Active eyes. 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 Bilateral trochanteric bursitis 06/17/2016 Encounters Date Type Specialty Care Team Description 08/13/2020 Orders Only Infectious Diseases Fabrizio Carpio MD S ARS-CoV-2 vaccination after 06/08/2020 Surgical History Surgery Date Site/Laterality Comments APPENDECTOMY COLONOSCOPY MASTECTOMY breast reconstru cted after implant removal EXPLORATORY LAPAROTOMY BRAIN SURGERY HERNIA REPAIR BREAST LUMPECTOMY HYSTERECTOMY UPPER GASTROINTESTINAL ENDOSCOPY Medical History Medical History Date Comments Hypertension 2009 Hyperlipidemia 2009 Irregular heart beat 2010 Heart valve disorder 2009 Neuropathy 2015 arm, wrist, shoulder Chronic fatigue syndrome 2006 Nodule in breast several times benign, dense breast Cyst of breast several times benign Mastitis reoccurring painful breast area, rightone Mammoplasty Silicone breast imp lants 1974, but, removed in 2006 Chronic bronchitis 2005 - 2007 then later dry cough in 2008 Hepatitis 1996 Hep A Gastric reflux take Prevacid and Tu ms daily Diverticulitis recent on CT scan Urinary tract infection take AZO for isidro n Endometriosis had total hysterecto my 1985 Blood coagulation disorder thick blood Lupus erythematosus tested HELENE positive but not sure Gout in left foot in ball joint area Depressive disorder I cry easy Anxiety I worry alot Lymphedema not sure, have itchy arms with lumps under the skin. 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 Arrhythmia Congestive heart failure pt states it's mild Gastroesophageal reflux disease Stented coronary artery 08/2019 Family History Medical History Relation Name Comments Diabetes Brother Hermelindo Hunt Sixto Hunt Coronary heart disease (CHD) Father Bennie Mcdowell Hypertension Father Bennie Jeremias -Brain cancer Maternal Aunt 1 Marisel Wilson -Gastrointestinal (Esophagus, Liver, Maternal Aunt 2 Elana Lroa ms Bile Duct, Stomach, Pancreas, Colon, Rectum, Anus -Leukemia Maternal Aunt 3 Barbaraaptrice Griffin -Gynecology (Ovary, Endometrial, Mother Yamini Ivy Cervix, Vagina) -Thoracic or Lung Mother Yamini Ivy Coronary heart disease (CHD) Mother Yamini Ivy Hypertension Mother Yamini Ivy -Genitourinary (Bladder, Kidney, Sister 1 Bharti Lizarraga Prostate, Testicle) Stroke Sister 2 Rosa Hunt Relation Name Status Comments Brother Sixto Del Valle Father Bennie Mcdowell Maternal Aunt 1 Marisel Wilson Maternal Aunt 2 Elana Yun Maternal Aunt 3 Barbara Griffin Mother Yamini Ivy Sister 1 Bharti Lizarraga Sister 2 Rosa Hunt Social History Tobacco Use Types Packs/Day Years Used Date Former Smoker 1 10 06/05/1968 - 0 06/05/1978 Smokeless Tobacco: Never Used Alcohol Use Standard Drinks/Week Comments No 0 (1 standard drink = 0.6 oz pure alcoho l) Sex Assigned at Date Recorded Not on file Obstetrics History Para Term AB IAB SAB Ectopic Multiple Living Live Births 2 Last Filed Vital Signs Not on file Plan of Treatment Health Maintenance Due Date Last Done Comments COVID-19 Vaccination (1) 1964 Results Not on fileafter 06/08/2020 Insurance Payer Benefit Plan Subscriber ID Effective Phone Address Typ e / Group Dates MEDICARE MEDICARE PART [id number] 2017-Prese [phone] [employer] Medicare A nt 28 [employer] [address] [place] [phone] [employer] [place] PPO [id number] 2014-Prese [address] [place] [address] [place] [address] Gregoria Vela Personal/Family Self [address] (Home) [place] [id number] Gregoria Vela Personal/Family Self [address] (Home) [place] [id number] Care Teams 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
--- OUTSIDE RECORDS SUMMARY | 2021-06-08 17:16 | XMS REPORT | Continuity of Care Document ---
:1950 Author Organization [facility] t Address [address] [place] [address] Care Team Providers Name Role Phone Pcp, Does Not Have A Primary Care Physician JESSICA Attending Clinician Unavailable SEWIELAM Attending Clinician Unavailable A_Byrd Attending Clinician Unavailable Nurse, Pob Immunization Attending Clinician Unavailable Gurinder Bourne DO Attending Clinician Jessica QUACH Attending Clinician VAN MANTILLA Attending Clinician Unavailable MYKELSEYONLINE Attending Clinician Unavailable Cheyenne SANTOS Attending Clinician Unavailable SPRINGER Attending Clinician Unavailable LAB47 Attending Clinician Unavailable ANDRADE Attending Clinician Unavailable LAB90 Attending Clinician Unavailable Van Mantilla MD Attending Clinician Brennon BRIZUELA Attending Clinician Unavailable Only, Db Test Attending Clinician Unavailable Martínez QUACH Attending Clinician MARTÍNEZ Attending Clinician Unavailable Shirin QUACH Attending Clinician BECKY GOMEZ Attending Clinician Unavailable IHDE_G Attending Clinician Unavailable A_Byrd Admitting Clinician Unavailable IHDE_G Admitting Clinician Unavailable Payers Payer Name Policy Type Policy Effective Date Expiration Date Sour ce Number BCBS 2 [id number] 2019 8 00:00:00 [place] [id number] 2014 (PPO) 8 00:00:00 MEDICAREMEDICARE PART [id number] 2017 MD Cope [id number] 2016-P 00:00:00 [id number] [facility] SOL[facility] BOX [facility] M[facility]ENEGRO [id number] BLUE CROSS BLUE [id number] 2014 MD Ricci roxane SHIELDBCBS [place] PPO 8 00:00:00 [id number] 5-[id number], [place] [address]GWN Problems Condition Condition Condition Status Onset Resolution Last Treating Co mments Source Name Details Category Date Date Treatment Clinician Date Hyperlipid Hyperlipid Disease Active 2020-06 K elsey emia emia 0-22 Seybold 00:00: 00 Chronic Chronic Disease Active 2020-06 Conchis midline midline 0-22 Seybold low back low back 00:00: pain pain 00 CAD Condition Active 2020-062021-04-16 Mem oria (coronary 0-22 17:50:29 l artery CAD 00:00: Haris disease) (coronary 00 artery disease) Active 03/26/2021 [facility]16[facility] Herpes Problem Active [place] simplex Simplex 7-29 da type 1 Type 1 00:00: Medical infection Infection 00 Grou p Iron Iron Problem Active [place] deficiency Deficiency 6-08 da anemia Anemia 00:00: Medical 00 Group Angina Angina Problem Active [place] pectoris Pectoris 6-08 da 00:00: Medical 00 Group Splits in Splits in Problem Active [place] nails Nails 3-17 da 00:00: [...] 00:00: n 00 Bilateral Bilateral Disease Active MD trochanter trochanter 1-13 An derso ic ic 00:00: n bursitis bursitis 00 C83.3 Diagnosis Active 2015-062016-05-31 Mem oria 08-01 06:59:00 l C83.3 00:00: [place] 00 Active 05/31/2016 [facility] [place] MESENTERIC Diagnosis Active 2015-062016-05-02 Memoria LYMPH 06-25 07:59:00 l NODE-I88.0 00:00: Gurwinder onofre MESENTERIC 00 LYMPH NODE-I88.0 Active 04/25/2016 [facility] [place] Backache Problem Active 2016-06-03 Mem oria (finding) 02:23:46 l Backache Gurwinder n (finding) Active Problem 06/03/2016 [facility] [place] Gastroesop Problem Active 2016-06-03 Alexa santos hageal 02:23:46 l reflux [place] disease Gastroesop (disorder) hageal reflux disease (disorder) Active Problem 06/03/2016 [facility] [place] Neck pain Problem Active 2016-06-03 Me moria (finding) 02:23:46 l Neck [place] pain (finding) Active Problem 06/03/2016 [facility] [place] SARS-CoV-2 Diagnosis Active 2021-04-19 Memoria vaccinatio 16:44:40 l n Haris SARS-CoV-2 vaccinatio n Active 04/19/2021 MD Cope Encounter Diagnosis Active 2021-03-26 Memoria for 17:57:45 l immunizati Gurwinder n on - Encounter Unchanged for immunizati on - Unchanged Active 1 [facility] Chronic Diagnosis Active 2021-04-16 Me moria lumbosacra 17:50:29 l l pain Chronic Haris lumbosacra l pain Active 1 [facility] Lumbar Diagnosis Active 2021-04-16 Mem oria radiculiti 17:50:29 l s Lumbar [place] radiculiti s Active 04/16/2021 [facility] Degenerati Diagnosis Active 2021-04-16 Memoria ve disc 17:50:29 l disease, Haris lumbar Degenerati ve disc disease, lumbar Active 1 [facility] Anxiety Problem Active 2016-06-03 Kobi thania (finding) 02:23:46 l Anxiety Har[place] (finding) Active Problem 06/03/2016 [place] 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 [facility] Malignant Malignant Problem Active [facility] neoplasm Neoplasm da of skin [facility] Vitamin D Vitamin D Problem Active [place] deficiency Deficiency [facility] Hypertrigl Hypertrigl Problem Active [facility] yceridemia yceridemia [facility] Body mass Body Mass Problem Active [place] index 30+ Index 30+ da - obesity - Obesity Medi yash Group Obesity Obesity Problem Active [place] da [...] Active [place] maxillary Maxillary da sinusitis Sinusitis [facility] Has a sore Has a Sore [...] [place] of of da [facility]entery [facility] yash Group Gastrointe Gastrointe Problem Active M [...] Nasal da turbinates Turbinates Me dical Group Allergies, Adverse Reactions, Alerts Allergy Allergy Status Severity Reaction(s) Onset Inactive Treating Comm ents Source Name Type Date Date Clinician Tylenol Propensi Active Rash 2020-06 Conchis ty to 0-22 Seybold adverse 00:00: reaction 00 s Tylenol Tylenol Active Rash 2020-06 Memoria 0-22 l 00:00: [place] 00 Acetamin Propensi Active Rash Conchis ophen ty to 1-11 Seybold Injectio adverse 00:00: n reaction 00 s Acetamin Acetamin Active Low Rash 2016- Memori a ophen ophen 1-11 l Injectio Injectio 00:00: Gurwinder n n n 00 NO KNOWN Drug Active [facility] ALLERGIE Class ity of [facility] Tylenol Allergy Active Rash [place] to da substanc Medical e Group Family History Family Member [...] Quantity Comments Source Exposure to Not sure Conchis Seag hernandez SARS-CoV-2 (event) Alcohol intake 2019-10-04 2019-10-04 Current MD Cristobal onofre 00:00:00 00:00:00 non-drinker of alcohol (finding) Cigarettes smoked 2016-06-15 2016-06-15 MD Rojas castellano current (pack per 00:00:00 00:00:00 day) - Reported Cigarette 2016-06-15 2016-06-15 MD Cope pack-years 00:00:00 00:00:00 Tobacco use and 2016-06-15 2016-06-15 Smokeless tobacco MD Cope exposure 00:00:00 00:00:00 non-user Social History 2016-04-25 2016-04-[address] [facility] 18:11:00 18:11:00 History of tobacco 1968-06-05 1978-06-05 Current smoker MD Cope use 00:00:00 00:00:00 Sex [birth year] MD Page on 00:00:00 00:00:00 Smoking Status Start Date Stop Date Source Unknown if ever smoked [facility] Social History [facility] Social History 2016-06-15 00:00:00 2016-06-15 00:00:00 [facility] Medications Ordered Filled Start Stop Current Ordering Indication Dosage Frequency Signature Comments Components Source Medication Medication Date Date Medication? Clinician (SIG) Name Name Icosapent 2020-06 Yes 1{tbl} Take 1 Tabitha ey Ethyl 2-21 tablet by Mike (Vascepa) 1 10:09: mouth 2 g oral 29 times Capsule daily LISINOPRIL- 2020-06 Yes 1{tbl} Take 1 Ke lsey HCTZ 2-21 tablet by Mike 20-12.5 MG 10:09: mouth oral Tablet 29 daily Isosorbide 2020-06 Yes 30mg Take 30 mg K elsey Mononitrate 2-21 by mouth Yasmin old CR 30 MG 10:09: daily oral TABLET 29 SR 24 HR Fenofibrate 2020-06 Yes 145mg Take 145 K elsey 145 MG oral 2-21 mg by Seybold Tablet 10:09: mouth 29 daily hydroCHLORO 2020-06 Yes 50mg Take 50 mg Conchis thiazide 50 2-21 by mouth Seyb old MG oral 10:09: daily Tablet 29 hydrOXYzine 2020-06 Yes 50mg [id number] Take 50 mg Conchis Pamoate 50 2-21 [id number] by mouth 3 Seybold MG oral 10:09: 3D times Capsule 29 daily as needed for itching Carisoprodo 2020-06 Yes 350mg Q.25D Take 350 Conchis l 350 MG 2-21 mg by Seybold oral Tablet 10:09: mouth 4 29 times daily as needed for muscle spasms Tramadol 2020-06 Yes 50mg Q6H Take 50 mg Tanner y HCl 50 MG 2-21 by mouth Seybol d oral Tablet 10:09: every 6 29 hours as needed for pain Acyclovir 2020-06 Yes 200mg Take 200 Tanner sey 200 MG/5ML 2-21 mg by Seybold oral 10:09: mouth 5 Suspension 29 times daily Bimatoprost 2020-06 Yes 1[drp] 1 drop Dave guallpa (Lumigan) 2-21 nightly Seybold 0.01 % 10:09: ophthalmic 29 Solution cycloSPORIN 2020-06 Yes Apply to Dave guallpa E (RESTASIS 2-21 eye Seybold OP) 10:09: 29 Fluocin-Hyd 2020-06 Yes Apply 1 Tanner eagle roquinone-T 2-21 applicatio Se ybold retinoin 10:09: n 0.01-4-0.05 29 topically % apply nightly externally Cream Aspirin 2020-06 Yes 81mg Take 81 mg Tabitha ey (Aspirin 2-21 by mouth Seybold 81) 81 MG 10:09: daily oral 29 Chewable Tablet Atorvastati 2020-06 Yes 40mg Take 40 mg Conchis n Calcium 2-21 by mouth Seybol d 40 MG oral 10:09: daily Tablet 29 Famotidine 2020-06 Yes 40mg Take 40 mg K elsey 40 MG oral 2-21 by mouth Seybo ld Tablet 10:09: daily 29 Iron-Vitami 2020-06 Yes Take by Tanner sey n C (Iron 2-21 mouth Seybold 100/C) 10:09: 100-250 MG 29 oral Tablet ESTRADIOL 2020-06 Yes Take by Kelse y OR 2-21 mouth Seybold 10:09: Patient 29 states taking one daily Gabapentin 2020-06 Yes [id number] 300mg Take 1 Conchis 300 MG oral 2-21 capsule Seybo ld Capsule 00:00: (300 mg 00 total) by mouth at bedtime Diclofenac 2020-06 Yes [id number] 75mg Take 1 Conchis Sodium 75 2-21 tablet (75 Seyb old MG oral 00:00: mg total) Tablet 00 by mouth 2 Delayed times Response daily acyclovir 2020-06 Yes Take 2 Memori a (ZOVIRAX) 1-15 capsules l 200 mg 16:44: by mouth [place] capsule 40 as needed. acyclovir 2020-06 Yes Apply 1 Memor ia (ZOVIRAX) 1-15 applicatio l 5% cream 16:44: n Haris 40 topically to affected area(s) as needed. fenofibrate 2020-06 Yes Take 1 Kobi thania nanocrystal 1-15 tablet by l lized 16:44: mouth Haris (TRICOR) 40 daily. 145 mg tablet FLUoxetine 2020-06 Yes Take 1 Memor ia (PROzac) 20 1-15 capsule by l mg capsule 16:44: mouth Gurwinder n 40 daily. isosorbide 2020-06 Yes Take 1 Memor ia mononitrate 1-15 tablet by l (IMDUR) 30 16:44: mouth Gurwinder n mg 24 hr 40 daily. tablet lisinopril- 2020-06 Yes Take 1 Kobi thania hydrochloro 1-15 tablet by l thiazide 16:44: mouth Haris (PRINZIDE,Z 40 twice ESTORETIC) daily. 20-12.5 mg per tablet estrogens, 2020-06 Yes Take 1 Memor ia conjugated, 1-15 tablet by l (PREMARIN) 16:44: mouth Gurwinder n 1.25 mg 40 daily. tablet traMADol 2020-06 Yes Take 1 Memoria (ULTRAM) 50 1-15 tablet by l mg tablet 16:44: mouth [place] 40 every 6 (six) hours as needed. carisoprodo 2020-06 Yes Take 1 Kobi thania l (SOMA) 1-15 tablet by l 350 mg 16:44: mouth as [place] tablet 40 needed. calcium 2020-06 Yes Chew 2 Memoria carbonate 1-15 tablets as l (TUMS) 1000 16:44: needed. Her walters mg (400 mg 40 elemental calcium) chewable tablet HYDROXYZINE 2020-06 Yes Take 100 Me moria PAMOATE 1-15 mg by l ORAL 16:44: mouth [place] 40 daily. Patient states that she takes this medication in the middle of the day. aspirin 81 2020-06 Yes Take 81 mg M emoria mg EC 1-15 by mouth l tablet 16:44: daily. Haris 40 amLODIPine 2020-06 Yes Take 5 mg Me moria (NORVASC) 5 1-15 by mouth l mg tablet 16:44: daily. Gurwinder n 40 gemfibrozil 2020-06 Yes gemfibrozi Memoria (LOPID) 600 1-15 l 600 mg l mg tablet 16:44: tablet Gurwinder n 40 TAKE 1 TABLET BY MOUTH TWICE DAILY icosapent 2020-06 Yes Vascepa 1 Mem oria ethyL 1-15 gram l (Vascepa) 1 16:44: capsule Her walters gram cap 40 TAKE 2 CAPSULES BY MOUTH TWICE DAILY Icosapent 2020-06 Yes Take 1 Memori a Ethyl 1-12 tablet by l (Vascepa) 1 17:50: mouth 2 Her walters g oral 29 times Capsule daily LISINOPRIL- 2020-06 Yes Take 1 Kobi thania HCTZ 1-12 tablet by l 20-12.5 MG 17:50: mouth Gurwinder n oral Tablet 29 daily Isosorbide 2020-06 Yes Take 30 mg M emoria Mononitrate 1-12 by mouth l CR 30 MG 17:50: daily [place] oral TABLET 29 SR 24 HR Fenofibrate 2020-06 Yes Take 145 Me moria 145 MG oral 1-12 mg by l Tablet 17:50: mouth [place] 29 daily hydroCHLORO 2020-06 Yes Take 50 mg Memoria thiazide 50 1-12 by mouth l MG oral 17:50: daily [place] Tablet 29 hydrOXYzine 2020-06 Yes Take 50 mg Memoria Pamoate 50 1-12 by mouth 3 l MG oral 17:50: times Haris Capsule 29 daily as needed for itching Carisoprodo 2020-06 Yes Take 350 Me moria l 350 MG 1-12 mg by l oral Tablet 17:50: mouth 4 Her walters 29 times daily as needed for muscle spasms Tramadol 2020-06 Yes Take 50 mg Mem oria HCl 50 MG 1-12 by mouth l oral Tablet 17:50: every 6 Her walters 29 hours as needed for pain Acyclovir 2020-06 Yes Take 200 Kobi thania 200 MG/5ML 1-12 mg by l oral 17:50: mouth 5 Haris Suspension 29 times daily Bimatoprost 2020-06 Yes 1 drop Kobi thania (Lumigan) 1-12 nightly l 0.01 % 17:50: Haris ophthalmic 29 Solution cycloSPORIN 2020-06 Yes Apply to Me moria E (RESTASIS 12 eye l OP) 17:50: Haris 29 Fluocin-Hyd 2020-06 Yes Apply 1 Mem oria roquinone-T 06-16 applicatio l retinoin 17:50: n Haris 0.01-4-0.05 29 topically % apply nightly externally Cream Aspirin 2020-06 Yes Take 81 mg Kobi thania (Aspirin 12 by mouth l 81) 81 MG 17:50: daily [place] oral 29 Chewable Tablet Atorvastati 2020-06 Yes Take 40 mg Memoria n Calcium -12 by mouth l 40 MG oral 17:50: daily Gurwinder n Tablet 29 Famotidine 2020-06 Yes Take 40 mg M emoria 40 MG oral -12 by mouth l Tablet 17:50: daily Haris 29 Iron-Vitami 2020-06 Yes Take by Mem oria n C (Iron -12 mouth l 100/C) 17:50: Haris 100-250 MG 29 oral Tablet ESTRADIOL 2020-06 Yes Take by Sandrine ia OR 1-12 mouth l 17:50: Patient Haris 29 states taking one daily ESTRADIOL 2020-06 Yes Take by Tannerse y OR 1-12 mouth Seybold 08:25: Patient 08 states taking one daily Estrogens 2020-2020- No 1.25mg Take 1.25 Conchis Conjugated 1-12 11-12 mg by Mike (Premarin) 08:25: 00:00 mouth 1.25 MG 07 :00 daily oral Tablet Patient states taking one daily Icosapent 2020-06 Yes 1{tbl} Take 1 Tabitha ey Ethyl 1-12 tablet by Seybold (Vascepa) 1 08:16: mouth 2 g oral 17 times Capsule daily LISINOPRIL- 2020-06 Yes 1{tbl} Take 1 Ke lsey HCTZ 1-12 tablet by Seybold 20-12.5 MG 08:16: mouth oral Tablet 17 daily Isosorbide 2020-06 Yes 30mg Take 30 mg K elsey Mononitrate 1-12 by mouth Seyb old CR 30 MG 08:16: daily oral TABLET 17 SR 24 HR Fenofibrate 2020-06 Yes 145mg Take 145 K elsey 145 MG oral 1-12 mg by Seybold Tablet 08:16: mouth 17 daily hydroCHLORO 2020-06 Yes 50mg Take 50 mg Conchis thiazide 50 1-12 by mouth Seyb old MG oral 08:16: daily Tablet 17 hydrOXYzine 2020-06 Yes 50mg Q.[id number] Take 50 mg Conchis Pamoate 50 1-12 [id number] by mouth 3 Seybold MG oral 08:16: 3D times Capsule 17 daily as needed for itching Carisoprodo 2020-06 Yes 350mg Q.25D Take 350 Conchis l 350 MG 1-12 mg by Seybold oral Tablet 08:16: mouth 4 17 times daily as needed for muscle spasms Tramadol 2020-06 Yes 50mg Q6H Take 50 mg Tanner sey HCl 50 MG 1-12 by mouth Seybol d oral Tablet 08:16: every 6 17 hours as needed for pain Acyclovir 2020-06 Yes 200mg Take 200 Tanner sey 200 MG/5ML 1-12 mg by Seybold oral 08:16: mouth 5 Suspension 17 times daily Bimatoprost 2020-06 Yes 1[drp] 1 drop Ke lsey (Lumigan) 1-12 nightly Seybold 0.01 % 08:16: ophthalmic 17 Solution cycloSPORIN 2020-06 Yes Apply to Ke dakotahey E (RESTASIS 1-12 eye Seybold OP) 08:16: 17 Fluocin-Hyd 2020-06 Yes Apply 1 Tanner sey roquinone-T 12 applicatio Se ybold retinoin 08:16: n 0.01-4-0.05 17 topically % apply nightly externally Cream Aspirin 2020-06 Yes 81mg Take 81 mg Tabitha ey (Aspirin 1-12 by mouth Seybold 81) 81 MG 08:16: daily oral 17 Chewable Tablet Atorvastati 2020-06 Yes 40mg Take 40 mg Conchis n Calcium 1-12 by mouth Seybol d 40 MG oral 08:16: daily Tablet 17 Famotidine 2020-06 Yes 40mg Take 40 mg K elsey 40 MG oral 1-12 by mouth Seybo ld Tablet 08:16: daily 17 Iron-Vitami 2020-06 Yes Take by Tanner sey n C (Iron 1-12 mouth Seybold 100/C) 08:16: 100-250 MG 17 oral Tablet Estrogens 2020-06 No Take 1.25 Mem oria Conjugated 1-12 mg by l (Premarin) 00:00: mouth Gurwinder n 1.25 MG 00 daily oral Tablet Patient states taking one daily Gemfibrozil 2020-06- No 600mg Take 600 Conchis 600 MG oral 0-22 10-22 mg by Seybol d Tablet 10:03: 00:00 mouth 2 58 :00 times daily (before meals) Iron-Vitami 2020-06 Yes Take by Tanner sey n C (Iron 0-22 mouth Seybold 100/C) 09:48: 100-250 MG 44 oral Tablet Aspirin 2020-06 Yes 81mg Take 81 mg Tabitha ey (Aspirin 0-22 by mouth Seybold 81) 81 MG 09:46: daily oral 47 Chewable Tablet Atorvastati 2020-06 Yes 40mg Take 40 mg Conchis n Calcium 0-22 by mouth Seybol d 40 MG oral 09:46: daily Tablet 47 Famotidine 2020-06 Yes 40mg Take 40 mg K elsey 40 MG oral 0-22 by mouth Seybo ld Tablet 09:46: daily 47 Icosapent 2020-06 Yes 1{tbl} Take 1 Tabitha ey Ethyl 0-22 tablet by Seybold (Vascepa) 1 09:45: mouth 2 g oral 42 times Capsule daily LISINOPRIL- 2020-06 Yes 1{tbl} Take 1 Ke lsey HCTZ 0-22 tablet by Seybold 20-12.5 MG 09:45: mouth oral Tablet 42 daily Isosorbide 2020-06 Yes 30mg Take 30 mg K elsey Mononitrate 0-22 by mouth Seyb old CR 30 MG 09:45: daily oral TABLET 42 SR 24 HR Fenofibrate 2020-06 Yes 145mg Take 145 K elsey 145 MG oral 0-22 mg by Seybold Tablet 09:45: mouth 42 daily hydroCHLORO 2020-06 Yes 50mg Take 50 mg Conchis thiazide 50 0-22 by mouth Seyb old MG oral 09:45: daily Tablet 42 hydrOXYzine 2020-06 Yes 50mg Q.[id number] Take 50 mg Conchis Pamoate 50 0-22 [id number] by mouth 3 Seybold MG oral 09:45: 3D times Capsule 42 daily as needed for itching Carisoprodo 2020-06 Yes 350mg Q.25D Take 350 Conchis l 350 MG 0-22 mg by Seybold oral Tablet 09:45: mouth 4 42 times daily as needed for muscle spasms Tramadol 2020-06 Yes 50mg Q6H Take 50 mg Tanner sey HCl 50 MG 0-22 by mouth Seybol d oral Tablet 09:45: every 6 42 hours as needed for pain Acyclovir 2020-06 Yes 200mg Take 200 Tanner sey 200 MG/5ML 0-22 mg by Seybold oral 09:45: mouth 5 Suspension 42 times daily Bimatoprost 2020-06 Yes 1[drp] 1 drop Ke lsey (Lumigan) 0-22 nightly Seybold 0.01 % 09:45: ophthalmic 42 Solution cycloSPORIN 2020-06 Yes Apply to Dave lsey E (RESTASIS 0-22 eye Seybold OP) 09:45: 42 Fluocin-Hyd 2020-06 Yes Apply 1 Tanner sey roquinone-T 0-22 applicatio Se ybold retinoin 09:45: n 0.01-4-0.05 42 topically % apply nightly externally Cream Gemfibrozil 2020-06 Yes Take 1 Kobi thania 600 MG oral 0-22 tablet l Tablet 00:00: (600 mg Haris 00 total) by mouth 2 times daily (before meals) Gemfibrozil 2020-06 Yes [id number] 600mg Take 1 Conchis 600 MG oral 0-22 tablet Seybol d Tablet 00:00: (600 mg 00 total) by mouth 2 times daily (before meals) Gemfibrozil 2020-06 Yes [id number] 600mg Take 1 Conchis 600 MG oral 0-22 tablet Seybol d Tablet 00:00: (600 mg 00 total) by mouth 2 times daily (before meals) Gemfibrozil 2020-06 Yes [id number] 600mg Take 1 Conchis 600 MG oral 0-22 tablet Seybol d Tablet 00:00: (600 mg 00 total) by mouth 2 times daily (before meals) No known No [facility] medications 9-20 ity of 19:32: [address] No known No [facility] medications 9-20 ity of 19:32: [address] No known No Univers medications 9-20 ity of 19:32: [address] amLODIPine 2019-0 Yes 5mg Take 5 mg MD (NORVASC) 5 5-01 by mouth Rojas rso mg tablet 14:53: daily. n 57 gemfibrozil 2019-0 Yes gemfibrozi MD (LOPID) 600 5-01 l 600 mg Rojas rso mg tablet 14:53: tablet n 57 TAKE 1 TABLET BY MOUTH TWICE DAILY icosapent 2020-0 Yes Vascepa 1 MD ethyL 5-01 gram Anderso (Vascepa) 1 14:53: capsule n gram cap 57 TAKE 2 CAPSULES BY MOUTH TWICE DAILY acyclovir 2019-0 Yes 2{capsu Take 2 MD (ZOVIRAX) 5-01 le} capsules Camilo o 200 mg 14:48: by mouth n capsule 02 as needed. acyclovir 2020-0 Yes 1{appli Apply 1 MD (ZOVIRAX) 5-01 cation} applicatio A nderso 5% cream 14:48: n n 02 topically to affected area(s) as needed. fenofibrate 2020-0 Yes 1{tbl} Take 1 MD nanocrystal 5-01 tablet by And erso lized 14:48: mouth n (TRICOR) 02 daily. 145 mg tablet FLUoxetine 2020-0 Yes 1{capsu Take 1 MD (PROzac) 20 5-01 le} capsule by An derso mg capsule 14:48: mouth n 02 daily. isosorbide 2020-0 Yes 1{tbl} Take 1 MD mononitrate 5-01 tablet by And erso (IMDUR) 30 14:48: mouth n mg 24 hr 02 daily. tablet lisinopril- 2020-0 Yes 1{tbl} Take 1 MD hydrochloro 5-01 tablet by And erso thiazide 14:48: mouth n (PRINZIDE,Z 02 twice ESTORETIC) daily. 20-12.5 mg per tablet estrogens, 2020-0 Yes 1{tbl} Take 1 MD conjugated, 5-01 tablet by And erso (PREMARIN) 14:48: mouth n 1.25 mg 02 daily. tablet traMADol 2020-0 Yes 1{tbl} Take 1 MD (ULTRAM) 50 5-01 tablet by And erso mg tablet 14:48: mouth n 02 every 6 (six) hours as needed. carisoprodo 2020-0 Yes 1{tbl} Take 1 MD l (SOMA) 5-01 tablet by Camilo o 350 mg 14:48: mouth as n tablet 02 needed. calcium 2020-0 Yes 2{tbl} Chew 2 MD carbonate 5-01 tablets as Rojas rso (TUMS) 1000 14:48: needed. n mg (400 mg 02 elemental calcium) chewable tablet HYDROXYZINE 2020-0 Yes 100mg Take 100 M D PAMOATE 5-01 mg by Anderso ORAL 14:48: mouth n 02 daily. Patient states that she takes this medication in the middle of the day. aspirin 81 2020-0 Yes 81mg Take 81 mg M D mg EC 5-01 by mouth Anderso tablet 14:48: daily. n 02 clopidogrel 2020-0 Yes Take 75 mg Memoria (PLAVIX) 75 4-22 by mouth l mg tablet 00:00: daily. Gurwinder n 00 clopidogrel 2020-0 Yes 75mg Take 75 mg MD (PLAVIX) 75 4-22 by mouth Roajs rso mg tablet 00:00: daily. n 00 LUMIGAN 2020-0 Yes Administer Kobi thania 0.01 % 4-18 1 drop to l ophthalmic 00:00: both eyes. H ermann drops 00 Patient states she does two drops LUMIGAN 2020-0 Yes 1[drp] Administer MD 0.01 % 4-18 1 drop to Anderso ophthalmic 00:00: both eyes. n drops 00 Patient states she does two drops atorvastati 2020-0 Yes Take 40 mg Memoria n (LIPITOR) 3-03 by mouth l 40 mg 00:00: at Haris tablet 00 bedtime. atorvastati 2020-0 Yes 40mg Take 40 mg MD n (LIPITOR) 3-03 by mouth Rojas rso 40 mg 00:00: at n tablet 00 bedtime. fluocinolon Yes Patient Mem oria e 0.01 % 8 uses this l oil 00:00: 2-4 times Haris 00 a day fluocinolon Yes Patient MD e 0.01 % 8-26 uses this Camilo o oil 00:00: 2-4 times n 00 a day hydrOXYzine Yes TAKE 1 OR M emoria HCl 7-30 2 TABLETS l (ATARAX) 25 00:00: BY MOUTH He rmann mg tablet 00 EVERY NIGHT AT BEDTIME NEEDED FOR ITCHING. hydrOXYzine Yes Dermatograp TAKE 1 OR MD HCl 7-30 hic 2 TABLETS Anderso (ATARAX) 25 00:00: urticaria BY MOUTH n mg tablet 00 EVERY NIGHT AT BEDTIME NEEDED FOR ITCHING. Roxicodone 2015-06 No 5 mg, Memori a 07-02 Route: PO, l 20:33: ONCE, Dosing Weight 67.864, kg, Start date: 05/02/16 14:33:00 [employer], Stop date: 05/02/16 14:33:00 [employer] glycopyrrol 2015-06 No Route: IV, Memoria ate (ANES) 07-02 Drug form: l 18:36: INJ, ONCE, Stop date: 05/02/16 12:36:00 [employer] neostigmine 2015-06 No Route: IV, Memoria (ANES) 07-02 Drug form: l 18:36: INJ, ONCE, Stop date: 05/02/16 12:36:00 [employer] Meperidine 2015-06 No Notes: Memor ia 07-02 [...] Pain Score 1-3, Start date: 05/02/16 12:29:00 [employer], Duration: 1 doses or times, Stop date: [...] 17:54: INJ, ONCE, Stop date: 05/02/16 11:54:00 [employer] ePHEDrine 2015-06 No Route: IV, Me moria (ANES) 07-02 Drug form: l 17:14: INJ, ONCE, Stop date: 05/02/16 11:14:00 [employer] metoclopram 2015-06 No Route: IV, Memoria simeon (ANES) 07-02 Drug form: l 17:04: INJ, ONCE, Haris 00 Stop date: 05/02/16 11:04:00 [employer] famotidine 2015-06 No Route: IV, M emoria (ANES) 07-02 Drug form: l 17:04: INJ, ONCE, Stop date: 05/02/16 11:04:00 [employer] rocuronium 2015-06 No Route: IV, M emoria (ANES) 07-02 Drug form: l 17:04: INJ, ONCE, Stop date: 05/02/16 11:04:00 [employer] acetaminoph 2015-06 No Route: IV, Memoria en (ANES) 07-02 Drug form: l 17:04: INJ, ONCE, Stop date: 05/02/16 11:04:00 [employer] propofol 2015-06 No Route: IV, Mem oria (ANES) 07-02 Drug form: l 16:59: INJ, ONCE, Stop date: 05/02/16 10:59:00 [employer] succinylcho 2015-06 No Route: IV, Memoria line (ANES) 07-02 Drug form: l 16:59: INJ, ONCE, Stop date: 05/02/16 10:59:00 [employer] midazolam 2015-06 No Route: IV, Me moria (ANES) 07-02 Drug form: l 16:59: SOLN, Haris 00 ONCE, Stop date: 05/02/16 10:59:00 [facility] [employer] fentaNYL 2015-06 No Route: IV, Mem oria (ANES) 07-02 Drug form: l 16:59: INJ, ONCE, [place] 00 Stop date: 05/02/16 10:59:00 [facility] [employer] lidocaine 2015-06 No Route: IV, Me moria (ANES) 07-02 Drug form: l 16:59: INJ, ONCE, [place] 00 Stop date: 05/02/16 10:59:00 [facility] [employer] cefOXitin 2015-06 No Route: IV, Me moria (ANES) 07-02 Drug form: l 16:54: INJ, ONCE, [place] 00 Stop date: 05/02/16 10:54:00 [employer] [facility] [employer] LR 1000 mL 2015-06 No Route: IV, M emoria INJ (ANES) 07-02 Total l 16:19: Volume: [place] 00 1,000, Start date: 05/02/16 10:19:00 [facility] [employer], Stop date: 05/02/16 11:19:00 [employer] [facility] [employer] Neurontin 2015-06 No Notes: Memori a 07-02 (Same as: l 15:30: Neurontin) [place] Calcium 2015-06 No 1,000 mL, Memor ia Chloride 07-02 Rate: 25 l 0.0014 13:59: ml/hr, [place] MEQ/ML / 00 Infuse Potassium over: 40 Chloride hr, Route: 0.004 IV, Dosing MEQ/ML / Weight Sodium 67.727 kg, Chloride Total 0.103 Volume: MEQ/ML / 1,000, Sodium Start Lactate date: 0.028 05/02/16 MEQ/ML 7:59:00 Injectable [employer], Solution Duration: 30 day, Stop date: 06/01/16 7:58:00 [employer] [facility] [employer] Lovenox 2015-06 No Notes: Memoria 07-02 (Same as: l 12:00: Lovenox) [place] CeleBREX 2015-06 No Notes: Memoria 07-02 NSAID. l 12:00: Please [place] 00 check indication . Not for seizure. (Same As: CeleBREX) Mefoxin + 2015-06 No Notes: Memori a sodium 07-02 (Same As: l chloride 12:00: Mefoxin) Ana nn 0.9% INJ 00 100 mL MEDICATION WASTE Product Size: 2000 mg Product Wasted: ___ mg Neurontin 2015-06 No Notes: Memori a 07-02 (Same as: l 12:00: Neurontin) [place] 00 Fish Oil 2015-06 Yes = 2 tab, Memor ia 1200 mg 1-21 PO, PRN, 0 l oral 17:54: Refill(s) [place] capsule 00 biotin 1000 2015-06 Yes 2,000 Memor ia mcg oral 1-21 microgram l tablet 17:53: = 2 tab, [place] 00 PO, Daily, # 30 tab, 0 Refill(s) lansoprazol 2015-06 Yes 30 mg = 1 M emoria e 30 MG 06-25 cap, PO, l Enteric 17:52: Daily, 0 [...] = 1 Me moria 500 mg oral 06-25 cap, PO, l capsule, 17:51: Bedtime, 0 Her [facility] extended 00 Refill(s) release Fenofibrate 2015-06 Yes 145 mg = 1 Memoria 145 MG Oral -21 tab, PO, l Tablet 17:51: Daily, 0 [place] 00 Refill(s) acyclovir 2015-06 Yes 200 mg = 1 Me moria 200 mg oral 06-25 cap, PO, l capsule 17:50: TID, 0 [place] 00 Refill(s) carisoprodo 2015-06 Yes 350 mg = 1 Memoria l 350 mg - tab, PO, l oral tablet 17:49: QID, 0 Herm gricel 00 Refill(s) Estrogens, 2015-06 Yes 1.25 mg = Me moria Conjugated -21 1 tab, PO, l (MCC) 1.25 17:48: Daily, 0 Her [facility] MG Oral 00 Refill(s) Tablet [Premarin] FLUoxetine 2015-06 Yes 20 mg = 1 Me moria 20 mg oral -21 tab, PO, l tablet 17:47: Daily, 0 [place] 00 Refill(s) isosorbide 2015-06 Yes 30 mg = 1 Me moria dinitrate -21 tab, PO, l 30 mg oral 17:46: Daily, 0 Her [facility] tablet 00 Refill(s) Hydrochloro 2015-06 Yes 1 tab, PO, Memoria thiazide -21 Daily, 0 l 12.5 MG / 17:46: Refill(s) [facility] Lisinopril 00 20 MG Oral Tablet diethylprop 2015-06 Yes TK 1 T PO M emoria ion 25 mg 0-20 TID BEFORE l tab 00:00: MEALS [place] 00 diethylprop 2015-06 Yes TK 1 T PO M D ion 25 mg 0-20 TID BEFORE Rojas rso tab 00:00: MEALS n 00 isosorbide isosorbide No isosorbide [place] mononitrate mononitrate [...] % eye 0.01 % eye da drops APPLY drops APPLY drops Medical ONE DROP ONE DROP APPLY ONE Gr oup INTO BOTH INTO BOTH DROP INTO EYES EVERY EYES EVERY BOTH EYES NIGHT AT NIGHT AT EVERY BEDTIME BEDTIME NIGHT AT BEDTIME metoclopram metoclopram No metoclopra [place] simeon 10 mg simeon 10 mg mide 10 mg da tablet TAKE tablet TAKE tablet Medical 3 TABLET S 3 TABLET S TAKE 3 G roup BY MOUTH BY MOUTH TABLET S DIRECTED DIRECTED BY MOUTH DIRECTED omeprazole omeprazole No omeprazole [place] 20 mg 20 mg 20 mg da capsule,del capsule,del capsule,de Medical ayed ayed layed Group release release release TAKE 1 TAKE 1 TAKE 1 CAPSULE BY CAPSULE BY CAPSULE BY MOUTH EVERY MOUTH EVERY MOUTH MORNING IN MORNING IN EVERY THE MORNING THE MORNING MORNING IN THE MORNING prasugrel prasugrel No prasugrel [place] 10 mg 10 mg 10 mg da tablet TAKE tablet TAKE tablet Medical 1 TABLET BY 1 TABLET BY TAKE 1 Group MOUTH EVERY MOUTH EVERY TABLET BY DAY DAY MOUTH EVERY DAY prednisolon prednisolon No prednisolo [place] e acetate [...] TABLET BY DAILY DAILY MOUTH TWICE DAILY triamcinolo triamcinolo No triamcinol [place] ne ne one da acetonide acetonide acetonide Medical 0.1 % 0.1 % 0.1 % Group topical topical topical ointment ointment ointment APPLY APPLY APPLY TOPICALLY TOPICALLY TOPICALLY TO ANKLE TO ANKLE TO ANKLE TWICE DAILY TWICE DAILY TWICE DAILY Vascepa 1 Vascepa 1 No Vascepa 1 [place] gram gram gram da capsule capsule capsule Medica l TAKE 2 TAKE 2 TAKE 2 Group CAPSULES BY CAPSULES BY CAPSULES MOUTH TWICE MOUTH TWICE BY MOUTH DAILY DAILY TWICE DAILY Zithromax Zithromax No Zithromax [place] Z-Silvio 250 Z-Silvio 250 Z-Silvio 250 da mg tablet mg tablet mg tablet Medical TAKE 2 TAKE 2 TAKE 2 Group TABLETS TABLETS TABLETS (500 MG) BY (500 MG) BY (500 MG) ORAL ROUTE ORAL ROUTE BY ORAL ONCE DAILY ONCE DAILY ROUTE ONCE FOR 1 DAY FOR 1 DAY DAILY FOR THEN 1 THEN 1 1 DAY THEN TABLET (250 TABLET (250 1 TABLET MG) BY ORAL MG) BY ORAL (250 MG) ROUTE ONCE ROUTE ONCE BY ORAL DAILY FOR 4 DAILY FOR 4 ROUTE ONCE DAYS DAYS DAILY FOR 4 DAYS acetaminoph acetaminoph No acetaminop [place] en 300 [...] MOUTH 4 HOURS 4 HOURS EVERY 4 HOURS acyclovir 5 acyclovir 5 No acyclovir [place] % topical % topical 5 % da cream APPLY cream APPLY topical Medical TOPICALLY TOPICALLY cream Grou p TO THE TO THE APPLY AFFECTED AFFECTED TOPICALLY AREA TWICE AREA TWICE TO THE DAILY DAILY AFFECTED NEEDED FOR NEEDED FOR AREA TWICE OUTBREAK OUTBREAK DAILY NEEDED FOR OUTBREAK acyclovir 5 acyclovir 5 No acyclovir [place] % topical % topical 5 % da ointment ointment topical Medi yash APPLY TO APPLY TO ointment Vick up THE THE APPLY TO AFFECTED AFFECTED THE AREA(S) BY AREA(S) BY AFFECTED TOPICAL TOPICAL AREA(S) BY ROUTE EVERY ROUTE EVERY TOPICAL 3 HOURS 6 3 HOURS 6 ROUTE TIMES PER TIMES PER EVERY 3 DAY DAY HOURS 6 TIMES PER DAY atorvastati atorvastati No atorvastat [place] n 40 mg n 40 mg in 40 mg da tablet TAKE tablet TAKE tablet Medical 1 TABLET BY 1 TABLET BY TAKE 1 Group MOUTH EVERY MOUTH EVERY TABLET BY DAY DAY MOUTH EVERY DAY benzonatate benzonatate No 1capsul TID benzonatat [place] 200 mg 200 mg e(s) e 200 mg da capsule capsule capsule Medica l Take 1 Take 1 Take 1 Group capsule 3 capsule 3 capsule 3 times a day times a day times a by oral by oral day by route. route. oral route. carisoprodo carisoprodo No carisoprod [place] l 350 mg l 350 mg ol 350 mg da tablet TAKE tablet TAKE tablet Medical 1 TABLET BY 1 TABLET BY TAKE 1 Group MOUTH EVERY MOUTH EVERY TABLET BY 8 HOURS 8 HOURS MOUTH EVERY 8 HOURS ciclopirox ciclopirox No ciclopirox [place] 8 % topical 8 % topical 8 % d a solution solution topical Medi yash solution Group Dexilant 60 Dexilant 60 No Dexilant [place] mg capsule, mg capsule, 60 mg da delayed delayed capsule, Medic al release release delayed Group TAKE 1 TAKE 1 release CAPSULE BY CAPSULE BY TAKE 1 MOUTH 30 MOUTH 30 CAPSULE BY MINUTES MINUTES MOUTH 30 BEFORE BEFORE MINUTES EATING EATING BEFORE BREAKFAST BREAKFAST EATING BREAKFAST estradiol 2 estradiol 2 No estradiol [place] mg tablet mg tablet 2 mg da TAKE 1 TAKE 1 tablet Medical TABLET BY TABLET BY TAKE 1 Vick up MOUTH EVERY MOUTH EVERY TABLET BY DAY DAY MOUTH EVERY DAY famotidine famotidine No famotidine [place] 20 mg 20 mg 20 mg da tablet TAKE tablet TAKE tablet Medical 1 TABLET BY 1 TABLET BY TAKE 1 Group MOUTH EVERY MOUTH EVERY TABLET BY NIGHT AT NIGHT AT MOUTH BEDTIME BEDTIME EVERY NIGHT AT BEDTIME famotidine famotidine No famotidine [place] 40 mg [...] body oil body oil Vick up APPLY APPLY APPLY TOPICALLY TOPICALLY TOPICALLY TO THE TO THE TO THE AFFECTED AFFECTED AFFECTED AREA TWICE AREA TWICE AREA TWICE DAILY DAILY DAILY gemfibrozil gemfibrozil No gemfibrozi [place] 600 mg [...] DAILY MOUTH NEEDED NEEDED TWICE DAILY NEEDED ibuprofen ibuprofen No ibuprofen [place] 800 mg 800 mg 800 mg da tablet TK 2 tablet TK 2 tablet TK Medical T PO Q 8 T PO Q 8 2 T PO Q 8 G roup HOURS PRN HOURS PRN HOURS PRN WF WF WF Integra Integra No Integra [place] Plus 125 mg Plus 125 mg Plus 125 da iron-1 mg iron-1 mg mg iron-1 Medical capsule capsule mg capsule Vick up iron 20mg iron 20mg No iron 20mg [place] daily daily daily da Medical Group Immunizations Ordered Immunization Filled Immunization Date Status Sherin evans Source Name Name SARS-COV-2 COVID-19 2021-06-04 Completed Unive rsity of MODERNA BOOSTER 00:00:00 [facility] VACCINE Branch Influenza Virus 2021-03-26 Completed [facility] Ibarra ybold Vaccine, 00:00:00 Quadrivalent, High Dose, Age 65 And Up Influenza Virus 2021-03-26 Completed [facility] Se ybold Vaccine, 00:00:00 Quadrivalent, High Dose, Age 65 And Up Influenza Virus 2021-03-26 Completed [facility] Ibarra ybold Vaccine, 00:00:00 Quadrivalent, High Dose, Age 65 And Up Influenza Virus 2021-03-26 Completed [facility] Vaccine, 00:00:00 Quadrivalent, High Dose, Age 65 And Up Covid-19 Vaccine 2020-08-05 Completed [facility] S eybold (Moderna), Mrna-lnp, 00:00:00 Mio Protein, Pf, 100 Mcg/0.5ml,IM Covid-19 Vaccine 2020-08-05 Completed [facility] S eybold (Moderna), Mrna-lnp, 00:00:00 Mio Protein, Pf, 100 Mcg/0.5ml,IM Covid-19 Vaccine 2020-08-05 Completed [facility] S eybold (Moderna), Mrna-lnp, 00:00:00 Mio Protein, Pf, 100 Mcg/0.5ml,IM Covid-19 Vaccine 2020-08-05 Completed Paula Carballo (Moderna), Mrna-lnp, 00:00:00 Mio Protein, Pf, 100 Mcg/0.5ml,IM Covid-19 Vaccine 2020-07-08 Completed [facility] S eybold (Moderna), Mrna-lnp, 00:00:00 Mio Protein, Pf, 100 Mcg/0.5ml,IM Covid-19 Vaccine 2020-07-08 Completed [facility] S eybold (Moderna), Mrna-lnp, 00:00:00 Mio Protein, Pf, 100 Mcg/0.5ml,IM Covid-19 Vaccine 2020-07-08 Completed [facility] S eybold (Moderna), Mrna-lnp, 00:00:00 Mio Protein, Pf, 100 Mcg/0.5ml,IM Covid-19 Vaccine 2020-07-08 Completed Paula Carballo (Moderna), Mrna-lnp, 00:00:00 Mio Protein, Pf, 100 Mcg/0.5ml,IM Tdap Tdap 2015-10-02 Completed [facility] 15:44:00 Medical Group influenza, high dose influenza, high dose 2014-04-16 Completed [facility] seasonal seasonal 00:00:00 Medical Group pneumococcal pneumococcal 2013-04-02 Completed [facility] polysaccharide PPV23 polysaccharide PPV23 18:27:10 Medical Group influenza, seasonal, influenza, seasonal, 2013-04-02 Completed [facility] injectable injectable 18:27:10 Medical Group Vital Signs Vital Name Observation Time Observation Value Comments Source Body height 2021-05-25 16:13:00 154.9 cm [facility] alston Body weight 2021-05-25 16:13:00 78.472 kg [facility] paizbold BMI 2021-05-25 16:13:00 32.69 kg/m2 [facility] Miles eybold Systolic blood 2021-04-16 14:18:00 132 mm[Hg] [facility] Seybold pressure Diastolic blood 2021-04-16 14:18:00 56 mm[Hg] Kelse y Seybold pressure Heart rate 2021-04-16 14:18:00 84 /min [facility] alston Body height 2021-04-16 14:18:00 154.9 cm [facility] paizbothierry Body weight 2021-04-16 14:18:00 80.287 kg [facility] Miles eybold BMI 2021-04-16 14:18:00 33.44 kg/m2 [facility] Miles eybold Systolic blood 2021-04-16 14:18:00 132 mm[Hg] [facility] Seybold pressure Diastolic blood 2021-04-16 14:18:00 56 mm[Hg] Kelse y Seybold pressure Heart rate 2021-04-16 14:18:00 84 /min [facility] paizbold Body height 2021-04-16 14:18:00 154.9 cm [facility] Miles eybold Body weight 2021-04-16 14:18:00 80.287 kg [facility] Miles eybold BMI 2021-04-16 14:18:00 33.44 kg/m2 [facility] Miles eybold Systolic blood 2021-03-26 14:34:00 114 mm[Hg] [facility] Seybold pressure Diastolic blood 2021-03-26 14:34:00 59 mm[Hg] Kelse y Seybold pressure Heart rate 2021-03-26 14:34:00 79 /min [facility] S eybold Body temperature 2021-03-26 14:34:00 36.61 Leni Tabitha ey Seybold Respiratory rate 2021-03-26 14:34:00 15 /min Tabitha ey Seybold Body height 2021-03-26 14:34:00 154.9 cm [facility] S eybold Body weight 2021-03-26 14:34:00 81.194 kg Con[facility] S eybold BMI 2021-03-26 14:34:00 33.82 kg/m2 [facility] S eybold Systolic blood 2021-03-26 14:34:00 114 mm[Hg] [facility] Seybold pressure Diastolic blood 2021-03-26 14:34:00 59 mm[Hg] Kelse y Seybold pressure Heart rate 2021-03-26 14:34:00 79 /min [facility] S eybold Body temperature 2021-03-26 14:34:00 36.61 Leni Tabitha ey Seybold Respiratory rate 2021-03-26 14:34:00 15 /min Tabitha ey Seybold Body height 2021-03-26 14:34:00 154.9 cm Con[facility] S eybold Body weight 2021-03-26 14:34:00 81.194 kg Con[facility] S eybold BMI 2021-03-26 14:34:00 33.82 kg/m2 Con[facility] S eybold Systolic blood 2021-03-26 14:34:00 114 mm[Hg] [facility] Seybold pressure Diastolic blood 2021-03-26 14:34:00 59 mm[Hg] Kelse y Seybold pressure Heart rate 2021-03-26 14:34:00 79 /min [facility] S eybold Body temperature 2021-03-26 14:34:00 36.61 Leni Tabitha ey Seybold Respiratory rate 2021-03-26 14:34:00 15 /min Tabitha ey Seybold Body height 2021-03-26 14:34:00 154.9 cm [facility] S eybold Body weight 2021-03-26 14:34:00 81.194 kg Conchis alston BMI 2021-03-26 14:34:00 33.82 kg/m2 [facility] alston Height 2021-02-18 00:00:00 61 [in_i] [facility] BMI (Body Mass 2021-02-18 00:00:00 33.6 kg/m2 [facility] Body Weight 2021-02-18 00:00:00 2848 [oz_av] [facility] BP Diastolic 2020-11-10 00:00:00 67 mm[Hg] [facility] Height 2020-11-10 00:00:00 61 [in_i] [facility] BMI (Body Mass 2020-11-10 00:00:00 34.5 kg/m2 [facility] BP Systolic 2020-11-10 00:00:00 145 mm[Hg] [facility] Body Weight 2020-11-10 00:00:00 2921.6 [oz_av] [facility] Height 2020-08-19 00:00:00 61 [in_i] [facility] BMI (Body Mass 2020-08-19 00:00:00 34.8 kg/m2 [facility] Body Weight 2020-08-19 00:00:00 2944 [oz_av] [facility] Height 2020-02-20 00:00:00 61 [in_i] [facility] BMI (Body Mass 2020-02-20 00:00:00 34.8 kg/m2 [facility] Body Weight 2020-02-20 00:00:00 2944 [oz_av] [facility] Height 2019-12-11 00:00:00 61 [in_i] [facility] BMI (Body Mass 2019-12-11 00:00:00 34.8 kg/m2 [facility] Body Weight 2019-12-11 00:00:00 2944 [oz_av] [facility] BP Diastolic 2019-07-18 00:00:00 72 mm[Hg] [facility] Height 2019-07-18 00:00:00 61 [in_i] [facility] BMI (Body Mass 2019-07-18 00:00:00 34.8 kg/m2 [facility] BP Systolic 2019-07-18 00:00:00 138 mm[Hg] [facility] Body Weight 2019-07-18 00:00:00 184 [lb_av] [facility] BP Diastolic 2019-06-11 00:00:00 72 mm[Hg] [facility] Height 2019-06-11 00:00:00 61 [in_i] [facility] BMI (Body Mass 2019-06-11 00:00:00 34.4 kg/m2 [facility] Group BP Systolic 2019-06-11 00:00:00 138 mm[Hg] [facility] Body Weight 2019-06-11 00:00:00 182 [lb_av] [facility] BP Diastolic 2019-05-22 00:00:00 70 mm[Hg] [facility] Height 2019-05-22 00:00:00 61 [in_i] [facility] BMI (Body Mass 2019-05-22 00:00:00 34.4 kg/m2 [facility] Group BP Systolic 2019-05-22 00:00:00 141 mm[Hg] [facility] Body Weight 2019-05-22 00:00:00 2912 [oz_av] [facility] BP Diastolic 2019-05-07 00:00:00 71 mm[Hg] [facility] Height 2019-05-07 00:00:00 61 [in_i] [facility] BMI (Body Mass 2019-05-07 00:00:00 34.4 kg/m2 [facility] BP Systolic 2019-05-07 00:00:00 141 mm[Hg] [facility] Body Weight 2019-05-07 00:00:00 2912 [oz_av] [facility] BP Diastolic 2019-03-26 00:00:00 69 mm[Hg] [facility] Height 2019-03-26 00:00:00 61 [in_i] [facility] BMI (Body Mass 2019-03-26 00:00:00 33.6 kg/m2 [facility] BP Systolic 2019-03-26 00:00:00 138 mm[Hg] [facility] Body Weight 2019-03-26 00:00:00 2848 [oz_av] [facility] BP Diastolic 2018-12-28 00:00:00 74 mm[Hg] [facility] Height 2018-12-28 00:00:00 61 [in_i] [facility] BMI (Body Mass 2018-12-28 00:00:00 33.8 kg/m2 [facility] BP Systolic 2018-12-28 00:00:00 135 mm[Hg] [facility] Body Weight 2018-12-28 00:00:00 2864 [oz_av] [facility] BP Diastolic 2018-05-31 00:00:00 71 mm[Hg] [facility] Height 2018-05-31 00:00:00 61 [in_i] [facility] BMI (Body Mass 2018-05-31 00:00:00 35 kg/m2 [facility] BP Systolic 2018-05-31 00:00:00 133 mm[Hg] [facility] Body Weight 2018-05-31 00:00:00 2960 [oz_av] [facility] Systolic (mm Hg) 2021-04-16 14:18:00 Kobi [facility] [place] Diastolic (mm Hg) 2021-04-16 14:18:00 Mem o[facility] [place] Heart Rate 2021-04-16 14:18:00 [facility] Height 2021-04-16 14:18:00 154.9 cm [facility] [place] Weight 2021-04-16 14:18:00 [facility] [place] Systolic (mm Hg) 2021-03-26 14:34:00 Kobi rial [place] Diastolic (mm Hg) 2021-03-26 14:34:00 Mem [facility] [place] Heart Rate 2021-03-26 14:34:00 [facility] Temperature Oral (F) 2021-03-26 14:34:00 36.61 Leni [facility] Respitory Rate 2021-03-26 14:34:00 Memori al [place] Height 2021-03-26 14:34:00 154.9 cm [facility] [place] Weight 2021-03-26 14:34:00 [facility] Systolic (mm Hg) 2016-05-31 14:00:00 Kobi rial [place] Diastolic (mm Hg) 2016-05-31 14:00:00 Mem [facility] [place] Respitory Rate 2016-05-31 14:00:00 [facility] [place] Temperature Oral (F) 2016-05-31 14:00:00 98.4 F [facility] [place] Weight 2016-05-31 13:20:00 [facility] BMI Calculated 2016-05-31 13:20:00 [facility] [place] Height 2016-05-31 13:20:00 154.94 cm [facility] Respitory Rate 2016-05-02 20:45:00 [facility] [place] Systolic (mm Hg) 2016-05-02 20:45:00 Kobi rial [place] Diastolic (mm Hg) 2016-05-02 20:45:00 Mem [facility] [place] Respitory Rate 2016-05-02 20:15:00 [facility] [place] Systolic (mm Hg) 2016-05-02 20:15:00 Kobi rial [place] Diastolic (mm Hg) 2016-05-02 20:15:00 [facility] [place] Systolic (mm Hg) 2016-05-02 19:45:00 Kobi rial [place] Diastolic (mm Hg) 2016-05-02 19:45:00 [facility] [place] Respitory Rate 2016-05-02 19:45:00 [facility] [place] Heart Rate 2016-05-02 14:45:00 [facility] Weight 2016-05-02 14:23:00 [facility] [place] BMI Calculated 2016-05-02 14:23:00 [facility] [place] Height 2016-04-25 17:38:00 154.94 cm [facility] [place] Procedures Procedure Date / Time Performing Source Performed Clinician SARS-COV-2 COVID-19 VACCINE 2021-06-04 Doctor [facility] ersity of BOOSTER,0.25ML,IM (MODERNA) 19:58:50 [place] [facility] [place] [facility] LUMBAR SPINE 2 VIEWS 2021-04-16 Koby Verma [facility] Seyb old 15:17:01 LUMBAR SPINE 2 VIEWS 2021-04-16 LuciKoby rmann 15:17:01 XR, lumbar spine 2020-02-20 [facility] 00:[facility]:00 Group MRI, lumbar spine, w/o contrast 2020-02-20 [facility] 00:00:00 Group unlisted imaging order 2019-06-11 [facility] 00:00:00 Group unlisted imaging order 2019-05-07 [facility] 00:00:00 Group unlisted imaging order 2018-12-28 [facility] 00:00:00 [facility] - procedure 2005-06-05 [facility] 00:00:00 Hysterectomy 1988-06-05 [facility] 00:00:00 Appendectomy 1979-06-05 [facility] 00:00:00 Breast implantation 1974-06-05 [facility] 00:00:00 [facility] Breast biopsy and related [facility] procedures Laparoscopy<sup>1</sup> [facility] Esophagogastroduodenoscopy (Surg) [facility] Plan of Care Planned Activity Planned Date Details Comments Source Future Scheduled 1962 COVID-19 Vaccination MD Cope Test 00:00:00 (1) [code = COVID-19 Vaccination (1)] Future Scheduled MR LUMBAR SPINE W/WO Mem [facility] Test CONTRAST [code = 07294] Future Scheduled CREATINE, SERUM [code Me morial [place] Test = 57144] Future Scheduled Bone density scan [facility] Test (procedure) [code = 567425608] Future Scheduled PNEUMOCOCCAL 65+ (1 of M [facility] [place] Test 1 - PPSV23) [code = PNEUMOCOCCAL 65+ (1 of 1 - PPSV23)] Future Scheduled Screening for [facility] Test malignant neoplasm of colon (procedure) [code = 607220609] Future Scheduled Screening for [facility] Test malignant neoplasm of breast (procedure) [code = 431875145] Future Scheduled Zoster (Shingles) [facility] Test Vaccine (1 of 2) [code = Zoster (Shingles) Vaccine (1 of 2)] Future Scheduled Physical Exam 40 and Mem orial [place] Test over [code = Physical Exam 40 and over] Future Scheduled Lipid panel [facility] He rmann Test (procedure) [code = 38827039] Future Scheduled TDAP [code = TDAP] Memor [facility] Test Future Scheduled EYE EXAM [code = EYE [facility] Test EXAM] Future Scheduled COVID-19 Vaccination [facility] Test (1) [code = COVID-19 Vaccination (1)] Encounters Start End Encounter Admission Attending Care Care Encounter Source Date/Time Date/Time Type Type Clinicians Facility Department ID 2021-07-30 2021-07-30 Outpatient [facility] TRUJILLO [id number] [facility] 10:30:00 10:30:00 BIRGIT Hoffmanol david 2021-06-28 2021-06-28 Outpatient CONCH[facility] VERMA [id number] [facility] 10:34:00 10:34:00 AHISA Seybol d 2021-06-08 2021-06-08 Outpatient A_Byannette [facility] [id number] [facility] 04:31:00 04:31:00 [facility] 2021-06-07 2021-06-07 Outpatient CONCHIS VERMA [id number] [facility] 11:29:00 11:29:00 AHMED Seybol d 2021-06-04 2021-06-04 Imm/Inj Nurse, Adc Pob Immunization [facility] [id number] [facility] 14:40:00 14:40:00 Visit Mike Bourne [id number] [facility] [id number] Dale BORGES [id number] [address] 2021-05-27 2021-05-27 Outpatient CONCHIS VERMA [id number] [facility] 00:00:00 00:00:00 AHMED Seybol d 2021-05-26 2021-05-26 Outpatient CONCHIS VERMA [id number] [facility] 00:00:00 00:00:00 AHMED Seybol d 2021-05-25 2021-05-25 Office DIPTI Trujillo [id number] [facility] 10:00:00 10:30:00 Visit [facility] [id number] ybold [id number] 2021-05-25 2021-05-25 Outpatient CONCHIS MANTILLA [id number] [facility] 00:00:00 00:00:00 MONSERRAT Seybol d 2021-05-21 2021-05-21 Outpatient CONCHIS VERMA [id number] [facility] 00:00:00 00:00:00 AHMED Seybol d 2021-05-21 2021-05-21 Outpatient KRYSTEN BARNES [id number] [facility] 00:00:00 00:00:00 MD WILBER Seybol d 2021-05-21 2021-05-21 Outpatient KRYSTEN BARNES [id number] [facility] 00:00:00 00:00:00 MD WILBER Seybol d 2021-05-19 2021-05-19 Outpatient CONCHIS SANTOS [id number] [facility] 10:00:00 10:00:00 MAGALY Seybol d 2021-05-18 2021-05-18 Outpatient CONCHIS MANTILLA [id number] [facility] 00:00:00 00:00:00 MONSERRAT Seybol d 2021-05-17 2021-05-17 Outpatient CONCHIS BARNES [id number] [facility] 07:45:00 07:45:00 Seybol d 2021-05-17 2021-05-17 Outpatient CONCHIS SPRINGER [id number] [facility] 00:00:00 00:00:00 ERASTO Seybol d 2021-05-08 2021-05-08 Outpatient CONCHIS MANTILLA [id number] [facility] 00:00:00 00:00:00 MONSERRAT Seybol d 2021-05-07 2021-05-07 Outpatient CONCHIS MANTILLA [id number] [facility] 00:00:00 00:00:00 MONSERRAT Seybol d 2021-05-07 2021-05-07 Outpatient [facility] MANTILLA [id number] [place] 00:00:00 00:00:00 MONSERRAT Seybol d 2021-05-06 2021-05-06 Outpatient [facility] VERMA [id number] [place] 00:00:00 00:00:00 AHMED Seybol d 2021-05-03 2021-05-03 Outpatient [facility] MANTILLA [id number] [place] 15:30:00 15:30:00 MONSERRAT Seybol d 2021-05-03 2021-05-03 Outpatient [facility] MANTILLA [id number] [place] 00:00:00 00:00:00 MONSERRAT Seybol d 2021-04-30 2021-04-30 Outpatient [facility] TRUJILLO [id number] [place] 13:00:00 13:00:00 BIRGIT Seybol d 2021-04-28 2021-04-28 Outpatient [facility] MANTILLA [id number] [place] 00:00:00 00:00:00 MONSERRAT Seybol d 2021-04-27 2021-04-27 Outpatient GLORIA BARNES [id number] [place] 13:00:00 13:00:00 Seybol d 2021-04-27 2021-04-27 Outpatient CONCHIS VERMA [id number] [place] 00:00:00 00:00:00 AHMED Seybol d 2021-04-27 2021-04-27 Outpatient CONCHIS MANTILLA [id number] [place] 00:00:00 00:00:00 MONSERRAT Seybol d 2021-04-27 2021-04-27 Outpatient CONCHIS ANDRADE [id number] [place] 00:00:00 00:00:00 MECCA Seybo ld 2021-04-24 2021-04-24 Outpatient CONCHIS MANTILLA [id number] [place] 00:00:00 00:00:00 MONSERRAT Seybol d 2021-04-23 2021-04-23 Outpatient CONCHIS MANTILLA [id number] [place] 00:00:00 00:00:00 MONSERRAT Seybol d 2021-04-20 2021-04-20 Outpatient CONCHIS VERMA [id number] [place] 00:00:00 00:00:00 AHMED Seybol d 2021-04-19 2021-04-19 Outpatient CONCHIS MANTILLA [id number] [place] 00:00:00 00:00:00 MONSERRAT Seybol d 2021-04-17 2021-04-17 Outpatient LAB47 CONCHIS BARNES [id number] [place] 11:05:00 11:05:00 Seybol d 2021-04-16 2021-04-16 Outpatient LAB90 CONCHIS BARNES [id number] [place] 14:50:00 14:50:00 Seybol d 2021-04-16 2021-04-16 Office nullFlavo [facility] [id number] [place] 13:58:02 14:28:02 Visit r Medical and l Diagnostic Ana [facility] 2021-04-16 2021-04-16 Outpatient CONCHIS BARNES [id number] [place] 09:05:00 09:05:00 Seybol d 2021-04-16 2021-04-16 Office BONNIE VERMA [id number] [place] 08:15:00 08:15:00 Visit MED MEDICAL & 350.1.13.13 Seybold DIAGNOSTI 1.2.7.2.686 [facility] [id number] 2021-04-13 2021-04-13 Outpatient CONCHIS VERMA [id number] [place] 00:00:00 00:00:00 AHMED Seybol d 2021-04-12 2021-04-12 Outpatient CONCHIS VERMA [id number] [place] 00:00:00 00:00:00 AHMED Seybol d 2021-03-29 2021-03-29 Outpatient CONCHIS MANTILLA [id number] [place] 00:00:00 00:00:00 MONSERRAT Seybol d 2021-03-26 2021-03-26 Office nullFlavo Creston [id number] [place] 14:32:26 15:02:26 Visit harleen weiner [facility] 2021-03-26 2021-03-26 Office Shiraz Mantilla [id number] [place] 09:32:26 10:02:26 Visit Monserrat Rendon 350.1.13.13 Se marjan Wild 1.2.7.2.686 [id number] 2021-03-26 2021-03-26 Outpatient CONCHIS MANTILLA [id number] [place] 09:30:00 09:30:00 MONSERRAT Hoffmanol d 2021-03-26 2021-03-26 Outpatient CONCHIS MANTILLA [id number] [place] 00:00:00 00:00:00 MONSERRAT Hoffmanol david 2021-02-23 2021-02-23 Letter ALEX Willett [id number] [facility] 00:00:00 00:00:00 (Out) Jason NIKKI 350.1.13.10 it y of [facility] 4.2.7.2.686 Junior as [id number] [address] 2021-02-22 2021-02-22 Laboratory Only, Ang Db Test [facility] 1.2.8 [id number] Univers 19:30:19 19:45:19 Only Mart[facility]nez [facility] 350.1.13.10 ity [facility] 4.2.7.2.686 Junior as Sebastian?Blea [id number] [address] Medical Office Building 2021-02-22 2021-02-22 Outpatient Harleen LEON [facility] [id number] Univers 19:15:00 19:15:00 CRUZ ity [facility] 2021-02-18 2021-02-18 Outpatient Papito ADAMS G 1827-20 210 [place] 02:46:00 02:46:00 916 [facility] 2021-02-18 2021-02-18 Elpidio ADAMS [place] - [id number] M at[place] 00:00:00 00:00:00 MD Leno: [address] [employer] [place] [address], [facility] [place] [address] , Ph. 2021-01-08 2021-01-08 Outpatient CONCHIS MANTILLA [id number] [place] 10:30:00 10:30:00 MONSERRAT Seybol d 2021-01-08 2021-01-08 Outpatient CONCHIS MANTILLA [id number] [place] 10:15:00 10:15:00 MONSERRAT Seybol d 2021-01-08 2021-01-08 Outpatient CONCHIS MANTILLA [id number] [place] 00:00:00 00:00:00 MONSERRAT Seybol d 2021-01-04 2021-01-04 Outpatient CONCHIS MANTILLA [id number] [place] 16:00:00 16:00:00 MONSERRAT Seybol d 2020-11-10 2020-11-10 [facility] 1827- 210 [place] 05:07:00 05:07:00 608 [facility] 2020-11-10 2020-11-10 Outpatient A_Byrd MMG MM 1827- 210 [place] 05:07:00 05:07:00 609 [facility] 2020-11-10 2020-11-10 [facility] 1827- 210 [place] 05:07:00 05:07:00 610 [facility] 2020-11-10 2020-11-10 Elpidio Onofre [facility] [place] - [id number] [place]or 00:00:00 00:00:00 MD Leno: [address] [facility] - [address], [facility] [place] [address] , Ph. 2020-08-31 2020-08-31 Outpatient A_Byrd MMG MM 1827- 210 [place] 03:23:00 03:23:00 607 [facility] 2020-08-19 2020-08-19 Outpatient A_Byrd MMG MM 1827- 210 [place] 11:17:00 11:17:00 317 [facility] 2020-08-192020-08-19 Outpatient A_Byrd MMG [facility] 182- 210 [place] 11:17:00 11:17:00 318 Medical Group 2020-08-19 2020-08-19 Elpidio Onofre [facility] [place] - [id number] M at[place] 00:00:00 00:00:00 MD Leno: [address] [facility] [place] - [address], [facility], [facility] [place] [address] , Ph. 2020-08-13 2020-08-13 Outpatient [facility] 182- 210 [place] 05:30:00 05:30:00 311 [facility] 2020-08-13 2020-08-13 Megan Cope [id number] [place] 00:00:00 00:00:00 Only harleen Carballo 2020-07-14 2020-07-14 Outpatient A_Byrd [facility] 182- 210 [place] 02:56:00 02:56:00 209 Medical Group 2020-07-14 2020-07-14 Outpatient [facility] 182- 210 [place] 02:56:00 02:56:00 210 Medical Group 2020-04-22 2020-04-22 Outpatient [facility] 1826- 210 [place] 02:42:00 02:42:00 202 Medical Group 2020-04-22 2020-04-22 Outpatient A_Byrd [facility] [id number] 201 [place] 02:42:00 02:42:00 118 Medical [facility] 2020-04-06 2020-04-06 Outpatient [facility] [id number] [place] 00:00:00 00:00:00 PATRICIA [address] 2020-03-24 2020-03-24 Outpatient [facility] [id number] [place] 00:00:00 00:00:00 PATRICIA [address] 2020-03-24 2020-03-24 Outpatient [facility] [id number] [place] 00:00:00 00:00:00 PATRICIA [address] 2020-03-24 2020-03-24 Outpatient PENA [facility] [id number] [place] 00:00:00 00:00:00 Darcy GOMEZ [facility] [facility] 2020-03-04 2020-03-04 Outpatient A_Byrd MMG MMG 1827-20 200 [place] 10:00:00 10:00:00 930 [facility] 2020-02-20 2020-02-20 Outpatient IHDE_G MMG MMG 1827-20 200 [place] 09:55:00 09:55:00 917 [facility] 2020-02-20 2020-02-20 Elpidio N MMG [place] - [id number] M at[place]or 00:00:00 00:00:00 MD Leno: [address] [place] [address] , Ph. 2020-01-28 2020-01-28 Outpatient IHDE_G MMG MMG 1827-20 200 [place] 11:38:00 11:38:00 825 Medical Group 2020-01-28 2020-01-28 Outpatient IHDE_G MMG MMG 1827-20 200 [place] 11:38:00 11:38:00 916 Medical Group 2019-12-11 2019-12-11 Outpatient IHDE_G MMG MMG 1827-20 200 [place] 06:44:00 06:44:00 708 [facility] 2019-12-11 2019-12-11 Elpidio N MMG [place] - [id number] M [place] 00:00:00 00:00:00 MD Leno: [address] - [facility] 201, [facility] [place] [address] , Ph. 2019-10-29 2019-10-29 Outpatient IHDE_G MMG MMG 1827-20 200 [place] 06:35:00 06:35:00 526 [facility] 2019-10-29 2019-10-29 Elpidio N MMG [place] - [id number] M [place] 00:00:00 00:00:00 MD Leno: [address] - [address], [facility] [place] [address] , Ph. 2019-08-12 2019-08-12 Outpatient IHDE_G MMG MMG 1827-20 200 [place] 11:08:00 11:08:00 309 Medical Group 2019-08-07 2019-08-07 Outpatient IHDE_G MMG MMG 1827-20 200 [place] 09:34:00 09:34:00 304 Medical Group 2019-07-22 2019-07-22 Outpatient IHDE_G MMG MMG 1827-20 200 [place] 04:59:00 04:59:00 217 Medical Group 2019-07-18 2019-07-18 Outpatient IHDE_G MMG MMG 1827-20 200 [place] 05:21:00 05:21:00 213 Medical Group 2019-07-18 2019-07-18 [facility] [place] - [id number] M [place] 00:00:00 00:00:00 Agus Contreras MD: Medical Medica [address] General [address], [place] [address] , Ph. [phone] 2019-07-05 2019-07-05 Outpatient IHDE_G MMG MMG 1827-20 200 [place] 09:08:00 09:08:00 131 Medical Group 2019-07-01 2019-07-01 Outpatient IHDE_G MMG MMG 1827-20 200 [place] 05:18:00 05:18:00 127 Medical Group 2019-06-26 2019-06-26 Outpatient IHDE_G MMG MMG 1827-20 200 [place] 10:39:00 10:39:00 122 Medical Group 2019-06-19 2019-06-19 Outpatient A_Byrd MMG MMG 1827-20 200 [place] 10:35:00 10:35:00 115 Medical Group 2019-06-19 2019-06-19 Outpatient A_Byrd MMG MMG 1827-20 200 [place] 10:35:00 10:35:00 121 Medical Group 2019-06-18 2019-06-18 Outpatient A_Byrd MMG MMG 1827-20 200 [place] 12:09:00 12:09:00 114 Medical Group 2019-06-11 2019-06-11 Outpatient A_Leno [facility] 1827- 200 [place] 07:19:00 07:19:00 107 Medical Group 2019-06-11 2019-06-11 Simón [facility] [place] - [id number] M [place] 00:00:00 00:00:00 Agus Contreras MD: Medical Medica [address], [place] [address] , Ph. [phone] 2019-05-22 2019-05-22 Elpidio ADAMS [place] - [id number] M [place] 00:00:00 00:00:00 MD Leno: [address], [facility], [facility] [place] [address] , Ph. 2019-05-07 2019-05-07 Elpidio ADAMS [place] - [id number] M [place] 00:00:00 00:00:00 MD Leno: [address] 201, [facility], [facility] [place] [address] , Ph. 2019-03-26 2019-03-26 Elpidio ADAMS [place] - [id number] M [place] 00:00:00 00:00:00 MD Leno: [place] [address], [facility] [place] [address] , Ph. 2018-12-28 2018-12-28 Elpidio ADAMS [place] - [id number] M [place] 00:00:00 00:00:00 MD Leno: [address], [facility] [place] [address] , Ph. 2018-05-31 2018-05-31 Elpidio ADAMS [place] - [id number] M [place] 00:00:00 00:00:00 MD Leno: [facility] [address] [place] - [address], [facility], [place] [address] , Ph. 2016-05-31 2016-06-01 [facility] [id number] [place] 12:55:00 05:59:00 r [place] 01 l [place] 2016-05-02 2016-05-02 [facility] [id number] [place] 13:55:11 21:05:00 Surgery r [place] 00 l [place] nn Results Test Description Test Time Test Comments Results Result Comments Source Potassium Level 2019-08-23 09:37:59 Test Item Value Reference Range Interpretation Comme nts Potassium Level (test code = Potassium Level) 3.3 mmol/L 3.5-5.1 L Basic Metabolic [id number] 08:39:57 Test Item Value Reference Range Interpretation Comments Sodium Level (test 132.0 mmol/L 135.0-145.0 L code = Sodium Level) Potassium Level (test >10.0 mmol/L 3.5-5.1 Critic al results code = Potassium called to E Sherry pizanobs Level) at 08/23/2019 08:39:49 CDT by glenys. [...] 8.3-10.5 code = Calcium Level) Basic Metabolic [id number] 08:39:57 Test Item Value Reference Range Interpretation Comments Sodium Level (test 132.0 mmol/L 135.0-145.0 L code = Sodium Level) Potassium Level >10.0 mmol/L 3.5-5.1 Critical res ults (test code = called to Jordan rosales bbs Potassium Level) at 0 08:39:49 CDT [...] ag e have not been validated by th e MDRD study and should be interpreted wit h caution. eGFR R esult Interpretation: eGFR > or = 60 is in the Normal RangeeGF R < 60 may mean kid steve diseaseeGFR < 1 5 may mean kidney failure Rang es recommended by the National Kidney Foundation, http://nkdep.ni h.gov Basic Metabolic [id number] 08:39:57 Test Item Value Reference Range Interpretation Comments Sodium Level (test 132.0 mmol/L 135.0-145.0 L code = Sodium Level) Potassium Level >10.0 mmol/L 3.5-5.1 Critical res ults (test code = called to Jordan martin Potassium Level) at 0 08:39:49 CDT by [...] ag e have not been validated by th e MDRD study and should be interpreted [...] ag e have not been validated by th e MDRD study and should be interpreted wit h caution. eGFR R esult Interpretation: eGFR > or = 60 is in the Normal RangeeGF R < 60 may mean kid steve diseaseeGFR < 1 5 may mean kidney failure Rang es recommended by the National Kidney Foundation, http://nkdep.ni h.gov Prothrombin Time and [id number] 08:30:21 Test Item Value Reference Range Interpretation Comments Prothrombin Time (test code = 12.2 seconds 9.8-13.4 Prothrombin Time) INR (test code = INR) 1.0 ratio 0.6-1.2 Partial Thromboplastin [id number] 08:30:21 Test Item Value Reference Range Interpretation Comments Partial Thromboplastin Time 33.10 seconds 24.39-37.25 (test code = Partial Thromboplastin Time) Complete Blood Count with [id number] 08:21:36 Test Item Value Reference Range Interpretation [...] code = IPF) 0 % N Automated Vccjmuawbmkr1172-67-56 08:21:36 Test Item Value Reference Range Interpretation Comments Neutro Auto (test code = Neutro 41.9 % 36.0-70.0 Auto) Lymph Auto (test code = Lymph Auto) 45.2 % 12.0-44.0 H Stanley Auto (test code = Stanley Auto) 10.5 % 0.0-11.0 Eos, Auto (test code = Eos, Auto) 1.7 % 0.0-7.0 Basophil Auto (test code = Basophil 0.4 % 0.0-2.0 Auto) Neutro Absolute (test code = Neutro 2.9 x10 1.6-7.4 Absolute) Lymph Absolute (test code = Lymph 3.11 x10 .50-4.60 Absolute) Stanley Absolute (test code = Stanley .72 x10 .00-1.20 Absolute) Eos Absolute (test code = Eos 0.12 x10 0.00-0.74 Absolute) Baso Absolute (test code = Baso 0.03 x10 0.00-0.21 Absolute) IG [id number] 08:21:36 Test Item Value Reference Range Interpretation Comments IG (test code = IG) 0.3 % 0.0-5.0 IG Abs (test code = IG Abs) 0 x10 N CBC W Auto Differential panel - [id number] 07:27:00 Test Item Value Reference Range Interpretation Comments white blood count (test code = 5.6 K/uL 4.0-11.5 white blood count) red blood count (test code = red 4.54 M/uL 3.80-5.20 blood count) hemoglobin (test code = 10.5 g/dL 10.5-15.7 hemoglobin) hematocrit (test code = 34.3 % 34.0-50.0 hematocrit) Erythrocyte mean corpuscular 75.6 fL 86-100 L volume [Entitic volume] (test code = 29660-8) mean corpuscular hemoglobin (test 23.1 pg 26.2-33.4 [...] 44.4-80.1 leukocytes in Blood (test code = 74093-7) Granulocytes Immature [#/volume] 0.0 K/uL 0.0-0.03 in Blood (test code = 85385-2) lymphocyte% (test code = 37.5 % 10.0-50.0 lymphocyte%) mono % (test code = mono %) 6.9 % 3.6-12.0 eos % (test code = eos %) 3.0 % 0.0-5.4 Basophils/100 leukocytes in 0.5 % 0.1-1.2 Unspecified specimen (test code = 49392-6) Neutrophils.band form [#/volume] 2.92 K/uL 1.56-6.13 in Blood (test code = 63875-1) Lymphocytes [#/volume] in 2.1 K/uL 1.18-3.74 Unspecified specimen by Automated count (test code = 02802-8) mono # (test code = mono #) 0.39 K/uL 0.24-0.86 eos # (test code = eos #) 0.17 K/uL 0.04-0.36 basophil # (test code = basophil 0.03 K/uL 0.01-0.08 #) NRBC% (test code = NRBC%) 0 /100 WBC 0-0.2 NRBC# (test code = NRBC#) 0 K/uL [facility], [id number] 07:27:00 NeutrophilsBandLymphocyteAtypical LymphMonocyteEosinophilMetamyelocyteMyelocytePlatelet EstimatePlatelet MorphologyDifferential comment-PMaMemorial Hospital at GulfportComprehensive metabolic 2000 panel - Serum or [id number] 07:27:00 Test Item Value Reference Range Interpretation [...] Serum or Plasma (test code = 6768-6) [facility]Troponin I.cardiac [Mass/volume] in [id number] 07:27:00 Test Item Value Reference Range Interpretation Comments cardiac troponin I (test code = cardiac <0.30 0.0-0.5 troponin I) [facility] kinase.MB [Mass/volume] in Serum or Plasma 2019-06-29 07:27:00 Test Item Value Reference Range Interpretation Comments mass creatinine kinase-mb (test 1.7 NG/mL 0.0-3.6 code = mass creatinine kinase-mb) [facility]Trop[facility] I.cardiac [Mass/volume] in [id number] 11:38:00 Test Item Value Reference Range Interpretation Comments cardiac troponin I (test code = cardiac <0.30 0.0-0.5 troponin I) [facility] WesleyCreatine kinase.MB [Mass/volume] in Serum or Plasma 2019-06-28 11:38:00 Test Item Value Reference Range Interpretation Comments mass creatinine kinase-mb (test 1.6 NG/mL 0.0-3.6 code = mass creatinine kinase-mb) [facility] [id number] 08:35:00 Test Item Value Reference Range Interpretation Comments Surgical pathology see separate pathology study (test code = report. 57020-8) [facility]rop[facility] I.cardiac [Mass/volume] in [id number] 06:27:00 Test Item Value Reference Range Interpretation Comments cardiac troponin I (test code = cardiac <0.30 0.0-0.5 troponin I) [facility] WesleyCreatine kinase.MB [Mass/volume] in Serum or Plasma 2019-06-28 06:27:00 Test Item Value Reference Range Interpretation Comments mass creatinine kinase-mb (test 1.7 NG/mL 0.0-3.6 code = mass creatinine kinase-mb) [facility] kinase [Enzymatic activity/volume] in Serum or [id number] 01:44:00 Test Item Value Reference Range Interpretation Comments creatine kinase (test code = creatine 40 U/L 20-180 kinase) [facility] [Mass/volume] in [id number] 01:44:00 Test Item Value Reference Range Interpretation Comments cardiac troponin I (test code = cardiac <0.30 0.0-0.5 troponin I) [facility]Creat[facility] kinase.MB [Mass/volume] in Serum or Plasma 2019-06-28 01:44:00 Test Item Value Reference Range Interpretation Comments mass creatinine kinase-mb (test 1.5 NG/mL 0.0-3.6 code = mass creatinine kinase-mb) [facility] W Auto Differential panel - [id number] 10:00:00 Test Item Value Reference Range Interpretation Comments white blood count (test code = 7.0 K/uL 4.0-11.5 white blood count) red blood count (test code = red 4.56 M/uL 3.80-5.20 blood count) hemoglobin (test code = 11.0 g/dL 10.5-15.7 hemoglobin) hematocrit (test code = 34.2 % 34.0-50.0 hematocrit) Erythrocyte mean corpuscular 75.0 fL 86-100 L volume [Entitic volume] (test code = 82883-6) mean corpuscular hemoglobin (test 24.1 pg 26.2-33.4 [...] 44.4-80.1 leukocytes in Blood (test code = 28095-3) Granulocytes Immature [#/volume] 0.0 K/uL 0.0-0.03 in Blood (test code = 70792-4) lymphocyte% (test code = 44.7 % 10.0-50.0 lymphocyte%) mono % (test code = mono %) 8.6 % 3.6-12.0 eos % (test code = eos %) 0.9 % 0.0-5.4 Basophils/100 leukocytes in 0.6 % 0.1-1.2 Unspecified specimen (test code = 17017-8) Neutrophils.band form [#/volume] 3.16 K/uL 1.56-6.13 in Blood (test code = 11657-8) Lymphocytes [#/volume] in 3.1 K/uL 1.18-3.74 Unspecified specimen by Automated count (test code = 46880-4) mono # (test code = mono #) 0.60 K/uL 0.24-0.86 eos # (test code = eos #) 0.06 K/uL 0.04-0.36 basophil # (test code = basophil 0.04 K/uL 0.01-0.08 #) NRBC% (test code = NRBC%) 0 /100 WBC 0-0.2 NRBC# (test code = NRBC#) 0 K/uL [facility], [id number] 10:00:00 NeutrophilsBandLymphocyteAtypical LymphMonocytePlatelet EstimateChoctaw Health CenterATOLOGY2016-12-27 14:00:00 Test Item Value Reference Range Interpretation Comments Large Plt (test code = Large Plt) Slight [facility] EdinburgMmemnzwUYDEOWVDFX1085-05-14 14:00:00 Test Item Value Reference Range Interpretation Comments Hgb (test code = Hgb) 13.3 12.0-16.0 [facility] EdinburgOlqfocyFNSOSMPKVH0309-17-45 14:00:00 Test Item Value Reference Range Interpretation Comments WBC (test code = WBC) 8.5 3.7-10.4 [facility] EdinburgQdyzyjvFGSICYWDEQ8965-93-40 14:00:00 Test Item Value Reference Range Interpretation Comments RBC (test code = RBC) 4.72 4.20-5.40 [facility] EdinburgNttsqheABVLEUEQKO6232-30-60 14:00:00 Test Item Value Reference Range Interpretation Comments MCHC (test code = MCHC) 32.7 32.0-36.0 [facility] EdinburgGduyactKSNEHOXDOQ2998-63-75 14:00:00 Test Item Value Reference Range Interpretation Comments MCH (test code = MCH) 28.2 pg 27.0-31.0 [facility] EdinburgUdhpfhbUUANPPZOUS5653-50-59 14:00:00 Test Item Value Reference Range Interpretation Comments RDW (test code = RDW) 15.7 11.5-14.5 [facility] EdinburgPadzsrfLXTTREJPTB4841-59-00 14:00:00 Test Item Value Reference Range Interpretation Comments MCV (test code = MCV) 86.5 80.0-98.0 [facility] EdinburgAzjdwupVGIKKZRVOX0874-66-74 14:00:00 Test Item Value Reference Range Interpretation Comments Hct (test code = Hct) 40.8 36.0-48.0 [facility] EdinburgYvjdexjALIVOFCFEV3151-57-38 14:00:00 Test Item Value Reference Range Interpretation Comments MPV (test code = MPV) 9.6 7.4-10.4 [facility] EdinburgLjhpgvuHUWDKPFGBZ8613-08-56 14:00:00 Test Item Value Reference Range Interpretation Comments Platelet (test code = Platelet) 268 079-621 [facility] EdinburgGehfmkiKVRHTYBUDP1708-44-20 14:00:00 Test Item Value Reference Range Interpretation Comments PT (test code = PT) 13.5 s 12.0-14.7 [facility] EdinburgXqhivuiKDOJKLLFKS6465-18-61 14:00:00 Test Item Value Reference Range Interpretation Comments INR (test code = INR) 1.01 0.85-1.17 [facility] EdinburgKdjobaqOBEHYIBKDK3062-31-35 14:00:00 Test Item Value Reference Range Interpretation Comments PTT (test code = PTT) 33.2 s 22.9-35.8 [place] 245256-12-27 14:00:00 Test Item Value Reference Range Interpretation Comments Platelet (test code = Platelet) 356 643-126 [facility] EdinburgTodlyluXPNLCEBEYM3469-90-78 14:00:00 Test Item Value Reference Range Interpretation Comments Eosinophils # (test code 0.2 See_Comment [A utomated message] The = Eosinophils #) system whic h generated this result tra nsmitted reference range : <=0.5. The reference r caren was not used to int erpret this result as normal/abnormal . [facility] EdinburgJpjofrxIFQLBJVAXD8184-92-80 14:00:00 Test Item Value Reference Range Interpretation Comments Monocytes (test code = Monocytes) 5.5 2.0-12.0 [facility] EdinburgVxvjpfsFOXDMDXHZD2263-46-04 14:00:00 Test Item Value Reference Range Interpretation Comments Segs (test code = Segs) 57.7 45.0-75.0 [facility] EdinburgYonyiubWYZYHXEJLR4195-19-54 14:00:00 Test Item Value Reference Range Interpretation Comments Lymphocytes (test code = Lymphocytes) 33.5 20.0-40.0 [facility] EdinburgWeslebxQGWEMQEJHP9873-00-67 14:00:00 Test Item Value Reference Range Interpretation Comments Eosinophils (test code = 2.9 See_Comment [A utomated message] The Eosinophils) system which ge nerated this result tra nsmitted reference range : <=4.0. The reference r caren was not used to int erpret this result as normal/abnormal . [facility] EdinburgKybqgecTWYMPVMBPQ3206-78-66 14:00:00 Test Item Value Reference Range Interpretation Comments Segs-Bands # (test code = Segs-Bands #) 4.9 1.5-8.1 [facility] EdinburgUrknqkhOJAISEULCM5438-71-01 14:00:00 Test Item Value Reference Range Interpretation Comments Lymphocytes # (test code = Lymphocytes 2.9 1.0-5.5 #) [facility] EdinburgBtflfijQLACCDWNRI9362-16-62 14:00:00 Test Item Value Reference Range Interpretation Comments Monocytes # (test code 0.5 See_Comment [Aut omated message] The = Monocytes #) system which generated this result tra nsmitted reference range : <=0.8. The reference r caren was not used to int erpret this result as normal/abnormal . [facility] EdinburgUxydkbmPOOTKTERCO9203-28-61 14:00:00 Test Item Value Reference Range Interpretation Comments Basophils (test code = 0.4 See_Comment [Aut omated message] The Basophils) system which ge nerated this result tra nsmitted reference range : <=1.0. The reference r caren was not used to int erpret this result as normal/abnormal . [facility] EdinburgOvhxlrkZZXOLZZKPK2244-48-93 14:00:00 Test Item Value Reference Range Interpretation Comments Basophils # (test code 0.0 See_Comment [Aut omated message] The = Basophils #) system which generated this result tra nsmitted reference range : <=0.2. The reference r caren was not used to int erpret this result as normal/abnormal . [facility]2016-11-21 17:44:00 Test Item Value Reference Range Interpretation Comments eGFR (test code = eGFR) 97 [facility]2016-11-21 17:44:00 Test Item Value Reference Range Interpretation Comments Sodium Lvl (test code = Sodium Lvl) 137 135-145 [facility]2016-11-21 17:44:00 Test Item Value Reference Range Interpretation Comments BUN (test code = BUN) 16 7-22 [facility]2016-11-21 17:44:00 Test Item Value Reference Range Interpretation Comments CO2 (test code = CO2) 27 24-32 [facility]2016-11-21 17:44:00 Test Item Value Reference Range Interpretation Comments Creatinine Lvl (test code = Creatinine 0.60 0.50-1.40 Lvl) [facility]2016-11-21 17:44:00 Test Item Value Reference Range Interpretation Comments Glucose Lvl (test code = Glucose Lvl) 97 70-99 [facility]2016-11-21 17:44:00 Test Item Value Reference Range Interpretation Comments Potassium Lvl (test code = Potassium 4.0 3.5-5.1 Lvl) [facility]2016-11-21 17:44:00 Test Item Value Reference Range Interpretation Comments Calcium Lvl (test code = Calcium Lvl) 9.0 8.5-10.5 [facility]2016-11-21 17:44:00 Test Item Value Reference Range Interpretation Comments Chloride Lvl (test code = Chloride Lvl) 101 95-109 [facility]2016-11-21 17:44:00 Test Item Value Reference Range Interpretation Comments AGAP (test code = AGAP) 13.0 10.0-20.0 [id number] 17:44:00 Test Item Value Reference Range Interpretation Comments MPV (test code = MPV) 8.6 7.4-10.4 [id number] 17:44:00 Test Item Value Reference Range Interpretation Comments Platelet (test code = Platelet) 323 133-450 [id number] 17:44:00 Test Item Value Reference Range Interpretation Comments MCHC (test code = MCHC) 33.2 32.0-36.0 [id number] 17:44:00 Test Item Value Reference Range Interpretation Comments MCH (test code = MCH) 28.2 pg 27.0-31.0 [id number] 17:44:00 Test Item Value Reference Range Interpretation Comments RDW (test code = RDW) 15.2 11.5-14.5 [id number] 17:44:00 Test Item Value Reference Range Interpretation Comments Hgb (test code = Hgb) 12.6 12.0-16.0 [id number] 17:44:00 Test Item Value Reference Range Interpretation Comments Hct (test code = Hct) 38.0 36.0-48.0 [id number] 17:44:00 Test Item Value Reference Range Interpretation Comments MCV (test code = MCV) 85.0 80.0-98.0 [id number] 17:44:00 Test Item Value Reference Range Interpretation Comments WBC (test code = WBC) 8.8 3.7-10.4 [id number] 17:44:00 Test Item Value Reference Range Interpretation Comments RBC (test code = RBC) 4.47 4.20-5.40 [id number] 17:44:00 Test Item Value Reference Range Interpretation Comments Basophils # (test code 0.1 See_Comment [Aut omated message] The = Basophils #) system which generated this result tra nsmitted reference range : <=0.2. The reference r caren was not used to int erpret this result as normal/abnormal . [id number] 17:44:00 Test Item Value Reference Range Interpretation Comments Eosinophils # (test code 0.1 See_Comment [A utomated message] The = Eosinophils #) system whic h generated this result tra nsmitted reference range : <=0.5. The reference r caren was not used to int erpret this result as normal/abnormal . [facility]burgRgoycobALUFCQMYHG0472-15-06 17:44:00 Test Item Value Reference Range Interpretation Comments Eosinophils (test code = 1.3 See_Comment [A utomated message] The Eosinophils) system which ge nerated this result tra nsmitted reference range : <=4.0. The reference r caren was not used to int erpret this result as normal/abnormal . [id number] 17:44:00 Test Item Value Reference Range Interpretation Comments Monocytes (test code = Monocytes) 6.7 2.0-12.0 [id number] 17:44:00 Test Item Value Reference Range Interpretation Comments Lymphocytes # (test code = Lymphocytes 2.9 1.0-5.5 #) [id number] 17:44:00 Test Item Value Reference Range Interpretation Comments Monocytes # (test code 0.6 See_Comment [Aut omated message] The = Monocytes #) system which generated this result tra nsmitted reference range : <=0.8. The reference r craen was not used to int erpret this result as normal/abnormal . [id number] 17:44:00 Test Item Value Reference Range Interpretation Comments Lymphocytes (test code = Lymphocytes) 33.2 20.0-40.0 [id number] 17:44:00 Test Item Value Reference Range Interpretation Comments Segs-Bands # (test code = Segs-Bands #) 5.1 1.5-8.1 [id number] 17:44:00 Test Item Value Reference Range Interpretation Comments Basophils (test code = 0.6 See_Comment [Aut omated message] The Basophils) system which ge nerated this result tra nsmitted reference range : <=1.0. The reference r caren was not used to int erpret this result as normal/abnormal . [id number] 17:44:00 Test Item Value Reference Range Interpretation Comments Segs (test code = Segs) 58.2 45.0-75.0 [facility]
[2021-06-08] MEDS ORDERED: ONDANSETRON 4 MG/2 ML VIAL ONE (20:17)
[2021-06-08] MEDS ORDERED: NA CHLORIDE 0.9% 1,000 ML ONE (20:17)
[2021-06-08] MEDS ORDERED: MORPHINE 4 MG/ML SYR ONE (20:17)
[2021-06-08] MEDS ORDERED: FAMOTIDINE 20 MG/2 ML VIAL IV ONE (20:18)
[2021-06-08 20:24] LABS: Absolute Lymphocytes (CBC) 2.7 K/uL (0.7-4.9); Hematocrit 25.6 % (36.0-45.0); Lymphocytes % 21.1 % (15.3-44.8); MPV 7.6 fL (7.6-11.3); RBC Red Blood Cell Count 3.24 M/uL (3.86-4.86)
[2021-06-08 21:00] LABS: SARS-COV-2 RT PCR NEGATIVE (NEGATIVE)
[2021-06-08 21:21] LABS: Albumin 2.8 g/dL (3.4-5.0); Bilirubin Direct 0.2 mg/dL (0-0.2); Bilirubin Total 0.4 mg/dL (0.2-1.0)
[2021-06-08] MEDS ORDERED: PANTOPRAZOLE 40 MG INJ ONE ×2 (22:02→22:26)
[2021-06-08] MEDS ORDERED: NA CHLORIDE 0.9% 250 ML ONE (22:27)
[2021-06-08 22:28] LABS: Protime INR 1.15
[2021-06-08 23:30] LABS: Urine Blood Negative (Negative); Urine Glucose Negative (Negative); Urine Protein Negative (Negative); Urine pH 5.5 (5.0-7.0)
--- NOTE | 2021-06-09 00:36 | EDPHYS ---
Physician Documentation [facility] Name: Gregoria Vela Age: 71 yrs Sex: Female : 1950 Arrival Date: 06/08/2021 Time: 17:11 Bed 19 Private MD: ED Physician Abiel Arriola HPI: 06/08 19:39 This 71 yrs old Female presents to ER via Ambulatory with complaints of Abdominal Pain, mh7 Vomiting/Diarrhea. 19:40 The patient presents with abdominal pain that is diffuse. Onset: The symptoms/episode mh7 began/occurred 4 day(s) ago. The symptoms do not radiate. Associated signs and symptoms: Pertinent positives: nausea, vomiting, and diarrhea, diarrhea, nausea, vomiting, Pertinent negatives: anorexia, blood in stools, chest pain, constipation, dysuria, fever, headache, hematuria, palpitations, shortness of breath, vaginal discharge, vomiting blood. The symptoms are described as intermittent, vague, waxing/waning. Modifying factors: The symptoms are alleviated by nothing, the symptoms are aggravated by food. Severity of pain: At its worst the pain was moderate 2 day(s) ago, in the emergency department the pain is unchanged. Historical: - Allergies: 17:57 ACETAMINOPHEN; ll1 17:57 Hydrocodone-Acetaminophen; ll1 - PMHx: 17:57 Hyperlipidemia; LYMPHOMA; Hypertension; cardiac stent; CAD; plate in head; skin cancer; ll1 - PSHx: 17:57 plate in head; ll1 - Immunization history:: Client reports receiving the 2nd dose of the Covid vaccine, Flu vaccine is up to date. - Social history:: Smoking status: Patient denies any tobacco usage or history of. ROS: 19:40 Constitutional: Negative for fever, chills, and weight loss, Eyes: Negative for injury, mh7 pain, redness, and discharge, ENT: Negative for injury, pain, and discharge, Neck: Negative for injury, pain, and swelling, Cardiovascular: Negative for chest pain, palpitations, and edema, Respiratory: Negative for shortness of breath, cough, wheezing, and pleuritic chest pain, Back: Negative for injury and pain, : Negative for injury, bleeding, discharge, and swelling, MS/Extremity: Negative for injury and deformity, Skin: Negative for injury, rash, and discoloration, Neuro: Negative for headache, weakness, numbness, tingling, and seizure, Psych: Negative for depression, anxiety, suicide ideation, homicidal ideation, and hallucinations, Allergy/Immunology: Negative for hives, rash, and allergies, Endocrine: Negative for neck swelling, polydipsia, polyuria, polyphagia, and marked weight changes, Hematologic/Lymphatic: Negative for swollen nodes, abnormal bleeding, and unusual bruising. Exam: 19:40 Head/Face: Normocephalic, atraumatic. Eyes: Pupils equal round and reactive to light, mh7 extra-ocular motions intact. Lids and lashes normal. Conjunctiva and sclera are non-icteric and not injected. Cornea within normal limits. Periorbital areas with no swelling, redness, or edema. Neck: Trachea midline, no thyromegaly or masses palpated, and no cervical lymphadenopathy. Supple, full range of motion without nuchal rigidity, or vertebral point tenderness. No Meningismus. Chest/axilla: Normal chest wall appearance and motion. Nontender with no deformity. No lesions are appreciated. Cardiovascular: Regular rate and rhythm with a normal S1 and S2. No gallops, murmurs, or rubs. Normal PMI, no JVD. No pulse deficits. Respiratory: Lungs have equal breath sounds bilaterally, clear to auscultation and percussion. No rales, rhonchi or wheezes noted. No increased work of breathing, no retractions or nasal flaring. 19:40 Skin: Warm, dry with normal turgor. Normal color with no rashes, no lesions, and no evidence of cellulitis. MS/ Extremity: Pulses equal, no cyanosis. Neurovascular intact. Full, normal range of motion. Neuro: Awake and alert, GCS 15, oriented to person, place, time, and situation. Cranial nerves II-XII grossly intact. Motor strength 5/5 in all extremities. Sensory grossly intact. Cerebellar exam normal. Normal gait. Psych: Awake, alert, with orientation to person, place and time. Behavior, mood, and affect are within normal limits. 19:40 Constitutional: The patient appears in no acute distress, alert, awake, uncomfortable. 19:40 Abdomen/GI: Inspection: obese Bowel sounds: normal, in all quadrants, Palpation: moderate abdominal tenderness, in all quadrants, mass, is not appreciated, rebound tenderness, is not appreciated, voluntary guarding, is not appreciated, involuntary guarding, is not appreciated, no appreciated organomegaly, Indicators: McBurney's point is not tender, Ramirez's sign is negative, Rovsing's sign is negative, Obturator sign is negative, Psoas sign is negative, Liver: no appreciated palpable abnormalities, Hernia: not appreciated. 19:40 Back: normal spinal alignment noted, CVA tenderness, that is moderate, is noted on the left, vertebral tenderness, is not appreciated, muscle spasm, is not present. 19:50 Abdomen/GI: Rectal exam: rectal tone normal, Stool: brown, guaiac positive, mh7 hemorrhoid(s), external, without bleeding, without inflammation, without thrombosis, without pain, mass, is not appreciated, swelling, is not appreciated, tenderness, is not appreciated, fecal impaction, is not appreciated, the exam is chaperoned by the nurse. Vital Signs: 17:55 BP 122 / 80; Pulse 87; Resp 18; Temp 97.8; Pulse Ox 98% ; Weight 80.29 kg; Height 5 ft. ll1 1 in. (154.94 cm); Pain 9/10; 19:00 BP 152 / 58; Pulse 86; Resp 22; Temp 98.5; Pulse Ox 100% ; Weight 80.29 kg; Height 5 mary ft. 1 in. (154.94 cm); Pain 6/10; 19:00 BP 141 / 57; Pulse 84; Resp 20; Pulse Ox 100% ; Pain 0/10; mary 20:00 BP 141 / 87; Pulse 84; Resp 18; Temp 98.5; Pulse Ox 100% on R/A; mary 21:00 BP 149 / 65; Pulse 82; Resp 16; Temp 98.5; Pulse Ox 98% on R/A; mary 22:01 BP 139 / 63; Pulse 84; Resp 16; Temp 98.5; Pulse Ox 99% on R/A; mary 23:04 BP 133 / 64; Pulse 87; Resp 16; Temp 98.5; Pulse Ox 99% on R/A; Pain 0/10; mary 06/09 00:29 BP 133 / 64; Pulse 91; Resp 16; Pulse Ox 98% ; mary 06/08 19:00 Body Mass Index 33.44 (80.29 kg, 154.94 cm) mary MDM: 00:31 Differential diagnosis: bowel obstruction, cholecystitis, Cholelithiasis, 7 diverticulitis, gastritis, gastroesophageal reflux disease, GI Bleed, non-specific abd pain, pancreatitis, Peptic Ulcer Disease, Ureterolithiasis, urinary tract infection. Data reviewed: vital signs, nurses notes, old medical records, lab test result(s), cardiac enzymes, CBC, electrolytes, urinalysis, EKG, radiologic studies, CT scan, plain films. Data interpreted: Pulse oximetry: on room air is 98 %. Interpretation: normal. Counseling: I had a detailed discussion with the patient and/or guardian regarding: the historical points, exam findings, and any diagnostic results supporting the discharge/admit diagnosis, lab results, radiology results, to return to the emergency department if symptoms worsen or persist or if there are any questions or concerns that arise at home. Response to treatment: the patient's symptoms have resolved after treatment, the patient's blood pressure is in an acceptable range, mental status has returned to baseline, the patient no longer shows bradycardia, the patient is not short of breath, the patient is not tachycardic, the patient's pain is gone, the patient's temperature has normalized, the patient is now symptom free, patient is well hydrated. Refusal of service: The patient/guardian displays adequate decision making capability and despite a detailed discussion of alternatives, benefits, risks, and consequences refuses: Admission to the hospital for further work-up and treatment. 00:35 Patient medically screened. [facility] 06/08 19:27 Order name: Basic Metabolic Panel; Complete Time: 21:25 [facility] 06/08 19:27 Order name: CBC with Diff; Complete Time: 20:33 [facility] 06/08 19:27 Order name: Hepatic Function; Complete Time: 21:25 [facility] 06/08 19:27 Order name: Lipase; Complete Time: 21:25 [facility] 06/08 19:39 Order name: COVID-19/FLU A+B (Document "Date of Onset" if Symptomatic); Complete Time: [facility] 21:12 06/08 20:42 Order name: Type And Screen; Complete Time: 00:24 [facility] 06/08 19:28 Order name: CT Abd/Pelvis - IV Contrast Only [facility] 06/08 20:42 Order name: Protime (+inr); Complete Time: 22:56 [facility] 06/08 20:42 Order name: Ptt, Activated; Complete Time: 22:56 [facility] 06/08 23:30 Order name: Urine Dipstick-Ancillary; Complete Time: 00:05 [facility] 06/09 00:15 Order name: ABO/RH no charge; Complete Time: 00:24 [facility] 06/08 19:27 Order name: IV Saline Lock; Complete Time: 20:03 [facility] 06/08 19:27 Order name: Labs collected and sent; Complete Time: 20:03 [facility] 06/08 19:27 Order name: EKG; Complete Time: 19:28 [facility] 06/08 19:27 Order name: EKG - Nurse/Tech; Complete Time: 20:03 [facility] Administered Medications: 06/08 21:58 Discontinued: NS 0.9% 1000 ml IV at 1000 ml once mary 20:17 Drug: morphine 4 mg Route: IVP; Site: right forearm; mary 21:58 Follow up: Response: No adverse reaction mary 20:18 Drug: Zofran (Ondansetron) 4 mg Route: IVP; Site: right forearm; mary 21:58 Follow up: Response: No adverse reaction mary 20:19 Drug: NS 0.9% 1000 ml Route: IV; Rate: 1000 ml; Site: right femoral; mary 21:59 Follow up: IV Status: Completed infusion; IV Intake: 1000ml mary 22:03 Drug: ProTONIX (pantoprazole) 80 mg Route: IVP; Site: right forearm; mary 22:34 Follow up: Response: No adverse reaction ld1 23:31 Drug: ProTONIX (pantoprazole) 8 mg/hr Route: IV; Rate: 25 ml/hr; Site: right forearm; mary 06/09 00:45 Drug: Cipro (ciprofloxacin) 500 mg Route: PO; mary Disposition Summary: 06/09/21 00:35 Left Against Medical Advice Location: Home [facility] Problem: new [facility] Symptoms: have improved [facility] Condition: Stable [facility] Diagnosis - Mesenteric panniculitis 7 - Nausea with vomiting, unspecified mh7 - Diarrhea, unspecified 7 - Anemia possible GI bleeding [facility] Followup: [facility] - With: Private Physician - When: 1 - 2 days - Reason: If symptoms return, Worsening of condition, Recheck today's complaints, Continuance of care, Re-evaluation by your physician Followup: [facility] - With: Yovany Maurer MD - When: 1 - 2 days - Reason: Worsening of condition, Recheck today's complaints, Continuance of care, Re-evaluation by your physician Discharge Instructions: - Discharge Summary Sheet [facility] - Anemia [facility] - Abdominal Pain, Adult, Ffhp-hk-[id number] [facility] - Diarrhea, Adult, Bpyt-or-Aehl [facility] - Nausea, Adult, Vwls-av-Viem [facility] - Vomiting, Adult [facility] Prescriptions: - ondansetron 4 mg Oral tablet,disintegrating - place 1 tablet by TRANSLINGUAL route every 8 hours As needed; 10 tablet; [facility] Refills: 0, Product Selection Permitted - Flagyl 500 mg Oral Tablet - take 1 tablet by ORAL route every 8 hours for 7 days; 21 tablet; Refills: 0, [facility] Product Selection Permitted - Cipro 500 mg Oral Tablet - take 1 tablet by ORAL route every 12 hours for 7 days; 14 tablet; Refills: 0, [facility] Product Selection Permitted - dicyclomine 20 mg Oral Tablet - take 1 tablet by ORAL route 4 times per day As needed; 20 tablet; Refills: 0, [facility] Product Selection Permitted Signatures: Dispatcher [employer] EDMS Rafi Copeland RN RN ll1 Abiel Arriola MD MD [facility] Mariana Thornton RN RN mary Manuela Rainey RN ld1 Corrections: (The following items were deleted from the chart) 00:28 00:24 Abdomen/GI: Rectal exam: rectal tone normal, Stool: brown, guaiac positive, [facility] hemorrhoid(s), external, without bleeding, without inflammation, without thrombosis, mass, is not appreciated, swelling, is not appreciated, tenderness, is not appreciated, fecal impaction, is not appreciated, the exam is chaperoned by the nurse, [facility] :06/08 19:50 Differential diagnosis: bowel obstruction, cholecystitis, Cholelithiasis, [facility] diverticulitis, gastritis, gastroesophageal reflux disease, GI Bleed, Irritable bowel syndrome, Mesenteric ischemia or infarction, non-specific abd pain, pancreatitis, Peptic Ulcer Disease, urinary tract infection, [facility] 06/09 00:06/08 19:50 Data reviewed: vital signs, nurses notes, old medical records, lab test [facility] result(s), cardiac enzymes, CBC, electrolytes, urinalysis, EKG, radiologic studies, CT scan, plain films, [facility] 06/09 99:06/08 19:50 Data interpreted: Pulse oximetry: on room air is 99 %. Interpretation: [facility] normal. [facility] 06/09 99:06/08 19:50 Counseling: I had a detailed discussion with the patient and/or guardian [facility] regarding: the historical points, exam findings, and any diagnostic results supporting the discharge/admit diagnosis, lab results, radiology results, to return to the emergency department if symptoms worsen or persist or if there are any questions or concerns that arise at home, [facility] 06/09 99:06/08 19:50 Response to treatment: the patient's symptoms have resolved after [facility] treatment, the patient's blood pressure is in an acceptable range, mental status has returned to baseline, the patient no longer shows bradycardia, the patient is not short of breath, the patient is not tachycardic, the patient's pain is gone, the patient's temperature has normalized, patient is well hydrated. [facility] 06/09 99:06/08 19:50 Refusal of service: The patient/guardian displays adequate decision making [facility] capability and despite a detailed discussion of alternatives, benefits, risks, and consequences refuses: Admission to the hospital for further work-up and treatment, [facility]
--- NOTE | 2021-06-09 00:36 | ER ---
Nurse's Notes [facility] Name: Gregoria Vela Age: 71 yrs Sex: Female : 1950 Arrival Date: 06/08/2021 Time: 17:11 Bed 19 Private MD: Diagnosis: Mesenteric panniculitis;Nausea with vomiting, unspecified;Diarrhea, unspecified;Anemia possible GI bleeding Presentation: 06/08 17:55 Chief complaint: Patient states: Abd pain with N/V/D since Monday. Doctor Leno sent her ll1 in for eval. Coronavirus screen: Vaccine status: Patient reports receiving the 2nd dose of the covid vaccine. Client denies travel out of the [place] in the last 14 days. diarrhea, nausea, vomiting. Client presents with at least one sign or symptom that may indicate coronavirus-19. Standard/surgical mask placed on the client. Ebola Screen: Patient denies travel to an Ebola-affected area in the 21 days before illness onset. Initial Sepsis Screen: Does the patient meet any 2 criteria? No. Patient's initial sepsis screen is negative. Does the patient have a suspected source of infection? Yes: Acute abdominal pain. Risk Assessment: Do you want to hurt yourself or someone else? Patient reports no desire to harm self or others. Onset of symptoms was June 06, 2021. 17:55 Method Of Arrival: Ambulatory ll1 17:55 Acuity: ERIC 3 ll1 Triage Assessment: 21:45 General: Behavior is cooperative. mary Historical: - Allergies: 17:57 ACETAMINOPHEN; ll1 17:57 Hydrocodone-Acetaminophen; ll1 - PMHx: 17:57 Hyperlipidemia; LYMPHOMA; Hypertension; cardiac stent; CAD; plate in head; skin cancer; ll1 - PSHx: 17:57 plate in head; ll1 - Immunization history:: Client reports receiving the 2nd dose of the Covid vaccine, Flu vaccine is up to date. - Social history:: Smoking status: Patient denies any tobacco usage or history of. Screenin:44 Abuse screen: Denies threats or abuse. Denies injuries from another. Nutritional mary screening: No deficits noted. Tuberculosis screening: No symptoms or risk factors identified. Fall Risk None identified. IV access (20 points). Assessment: 20:44 General: Appears in no apparent distress. Pain: Complains of pain in abdomen. GI: Bowel mary sounds present X 4 quads. Derm: Skin is pale. 20:44 General: I recv'd the pt to room # 19 \\T\\ 1900 She reports,"...I had went to see my mary doctor in [place], Dr. Burr, and he looked at me and said it was diverticulitis...he said I should come to this hospital, because I live in [place]." The pt is morbidly obese and pale. She reportedly ambulates without assist and reports having abdominal pain.."for a while". The doc was able to perform a rectal, with me and the pt's at bedside, that was + for occult blood. The MD discussed with the pt the need to transfer to a facility that has a GI MD. She then said,"Maybe I can go to [place]" I explained to the pt and her the current situation with transferring, as well did, the doctor. Awaiting further orders, as all have been completed, save for the urine. I have asked the pt to provide urine and have a bedpan at bedside. . 22:51 General: The pt was taken to CT, via stretcher. . mary 23:05 General: Pt returned from CT. . mary 06/09 00:38 General: The pt is leaving AMA. She and her acknowledge understanding of the mary risks associated with doing so. The pt said she will "..follow-up with Dr. Burr.." She and her remain pleasant, but adamant on leaving. SL dc'd Protonix infusion stopped. She ambulated to the bathroom, with assist from her , with a steady gait. The pt states she has "to go home, or the dogs won't sleep". . Vital Signs: 06/08 17:55 BP 122 / 80; Pulse 87; Resp 18; Temp 97.8; Pulse Ox 98% ; Weight 80.29 kg; Height 5 ft. ll1 1 in. (154.94 cm); Pain 9/10; 19:00 BP 152 / 58; Pulse 86; Resp 22; Temp 98.5; Pulse Ox 100% ; Weight 80.29 kg; Height 5 mary ft. 1 in. (154.94 cm); Pain 6/10; 19:00 BP 141 / 57; Pulse 84; Resp 20; Pulse Ox 100% ; Pain 0/10; mary 20:00 BP 141 / 87; Pulse 84; Resp 18; Temp 98.5; Pulse Ox 100% on R/A; mary 21:00 BP 149 / 65; Pulse 82; Resp 16; Temp 98.5; Pulse Ox 98% on R/A; mary 22:01 BP 139 / 63; Pulse 84; Resp 16; Temp 98.5; Pulse Ox 99% on R/A; mary 23:04 BP 133 / 64; Pulse 87; Resp 16; Temp 98.5; Pulse Ox 99% on R/A; Pain 0/10; mary 01 00:29 BP 133 / 64; Pulse 91; Resp 16; Pulse Ox 98% ; mary 06/08 19:00 Body Mass Index 33.44 (80.29 kg, 154.94 cm) mary ED Course: 06/08 17:11 Patient arrived in ED. ds1 17:57 Triage completed. ll1 17:58 Arm band placed on. ll1 19:05 Abiel Arriola MD is Attending Physician. 7 19:28 Mariana Thornton, GELACIO is Primary Nurse. mary 20:00 Inserted saline lock: 24 gauge in right forearm, using aseptic technique. Blood ds4 collected. 20:14 Lipase Sent. mary 20:14 Hepatic Function Sent. mary 20:14 CBC with Diff Sent. mary 20:14 Basic Metabolic Panel Sent. mary 20:14 COVID-19/FLU A+B (Document "Date of Onset" if Symptomatic) Sent. mary 21:44 No provider procedures requiring assistance completed. Inserted. mary 21:58 Protime (+inr) Sent. mary 21:58 Ptt, Activated Sent. mary 21:58 Type And Screen Sent. mary 23:02 CT Abd/Pelvis - IV Contrast Only In Process Unspecified. EDMS 06/09 00:32 Yovany Maurer MD is Referral Physician. mh7 00:41 intact, bleeding controlled, No redness/swelling at site. Pressure dressing applied. mary Administered Medications: 06/08 21:58 Discontinued: NS 0.9% 1000 ml IV at 1000 ml once mary 20:17 Drug: morphine 4 mg Route: IVP; Site: right forearm; mary 21:58 Follow up: Response: No adverse reaction mary 20:18 Drug: Zofran (Ondansetron) 4 mg Route: IVP; Site: right forearm; mary 21:58 Follow up: Response: No adverse reaction mary 20:19 Drug: NS 0.9% 1000 ml Route: IV; Rate: 1000 ml; Site: right femoral; mary 21:59 Follow up: IV Status: Completed infusion; IV Intake: 1000ml mary 22:03 Drug: ProTONIX (pantoprazole) 80 mg Route: IVP; Site: right forearm; mary 22:34 Follow up: Response: No adverse reaction ld1 23:31 Drug: ProTONIX (pantoprazole) 8 mg/hr Route: IV; Rate: 25 ml/hr; Site: right forearm; mary 06/09 00:45 Drug: Cipro (ciprofloxacin) 500 mg Route: PO; mary Intake: 06/08 21:59 IV: 1000ml; Total: 1000ml. mary Outcome: 21:45 Condition: stable mary 06/09 00:49 Patient left the ED. mary 00:51 AMA AMA form signed mary Signatures: Dispatcher [employer] EDSD Saadia Sanches ds1 Glen Aguillon4 Rafi Copeland RN RN ll1 Abiel Arriola MD MD 7 Manuela Rainey RN RN ld1 Mariana Thornton RN RN mary Corrections: (The following items were deleted from the chart) 06/08 20:33 20:17 Pepcid (famotidine) 20 mg IVP in right forearm mary mary
[2021-06-09] MEDS ORDERED: CIPROFLOXACIN HCL 500 MG TAB ONE (00:45)
[2021-06-09 00:58] VITALS: TEMP 98.5
[2021-06-09 01:05] VITALS: BP 133/64
[2021-06-09 01:07] VITALS: O2SAT 98
--- NOTE | 2021-06-09 11:23 | EKG ---
Test Date: 2021-06-08 Test Time: 19:41:23 Clinical Data Management Director: CHAGO MEASUREMENT RESULTS: Intervals: Rate: 84 ME: 156 QRSD: 92 QT: 380 QTc: 449 [place]: P: 84 ME: 156 QRS: 35 T: 68 INTERPRETIVE STATEMENTS: Normal sinus rhythm Nonspecific T wave abnormality Abnormal ECG Compared to ECG 10/14/2020 10:35:13 Prolonged QT interval no longer present T-wave abnormality still present Electronically Signed On 06-09-21 11:22:16 VP ORGANIZATIONAL DEVELOPMENT by Regis Wall
--- NOTE | 2021-06-09 13:07 | RAD REPORT ---
EXAM DESCRIPTION: CT - Abdomen Pelvis W Contrast - 06/09/2021 7:21 am COMPARISON: None. TECHNIQUE: CT ABDOMEN PELVIS WITH IV CONTRAST on 06/08/2021 7:28 PM DIRECTOR MATERNAL CHILD This exam was performed according to our departmental dose-optimization program, which includes autom ated exposure control, adjustment of the mA and/or kV according to patient size and/or use of iterati ve reconstruction technique. FINDINGS: Lower lungs are clear. Abdomen: The liver is normal in appearance. There is no biliary dilatation. Gallbladder is normal in appearance. The pancreas and spleen are normal in appearance. The adrenal glands and kidneys are unre markable. Abdominal aorta is densely calcified without aneurysm. There is no free air. There is no retroperiton eal adenopathy. Pelvis: There is mild inflammation in the central small bowel mesentery. There is mild distal colonic diverticulosis. Urinary bladder is unremarkable. There is no free fluid. Hysterectomy was performed. Appendix is not clearly seen. Skeleton: There are no acute osseous findings. No suspicious bony lesions. IMPRESSION: Mild central mesenteric inflammation which would be secondary to mesenteric panniculitis . Electronically signed by: Dimitris Everett MD 06/08/2021 11:37 PM DIRECTOR MATERNAL CHILD Due to temporary technical issues with the PACS/Fluency reporting system, reports are being signed by the in house radiologist without review as a courtesy to ensure prompt reporting. The interpreting r adiologist is fully responsible for the content of the report.
== END 2021-06-09 00:49 | disposition left against medical advice (07) ==
LOC: ER 17:09
DX: K65.4 Sclerosing mesenteritis (principal); R11.2 Nausea with vomiting, unspecified; R19.7 Diarrhea, unspecified; D64.9 Anemia, unspecified; Z88.6 Allergy status to analgesic agent; Z20.822 Contact with and (suspected) exposure to COVID-19
CPT/HCPCS: 96361; 93005; 85025; 80048; 36415; 86900; 86850; 85610; 86901; 80076; 85730; 81003; 83690; 0240U; 74177; 96375; 96374; 99284; Q9967; C9113 ×2; J7050; J7030; J2405

== ENCOUNTER 2021-06-10 18:46 | Emergency (ER) | payer BC, OTHER ==
--- OUTSIDE RECORDS SUMMARY | 2021-06-10 19:04 | XMS REPORT | Clinical Summary ---
:1950 Author Organization [facility] MD [facility] Center Address [address] [place] [address] Care Team Providers Name Role Phone Elpidio [...] Fabrizio Carpio MD S ARS-CoV-2 vaccination after 06/10/2020 Surgical History Surgery Date Site/Laterality Comments APPENDECTOMY [...] -Gastrointestinal (Esophagus, Liver, Maternal Aunt 2 Elana Lora ms Bile Duct, Stomach, Pancreas, Colon, Rectum, Anus -Leukemia Maternal Aunt 3 Barbarapatrice Griffin -Gynecology (Ovary, Endometrial, Mother Yamini Ivy [...] Vaccination (1) 1964 Results Not on fileafter 06/10/2020 Insurance Payer Benefit Plan Subscriber ID Effective Phone Address Typ e / Group Dates MEDICARE MEDICARE PART [id number] 2017-Prese [phone] [employer] Medicare A nt 28 SOL[employer] [address] [place] [phone] [employer] PPO [id number] 2014-Prese [address] [place] 8[address] [place] [address] Gregoria Vela Personal/Family Self [address] (Home) [place] [id number] Gregoria Vela Personal/Family Self [address] (Home) [place] [id number] Care Teams Stoner Out Relationship Specialty Start Date End Date Elpidio Burr PCP - External Referring 06/15/16 Elpidio Burr PCP - External Follow Up 06/15/16 Devon Rivers PCP - External Follow Up Cardiology 06/15/16 MD Sharma [address] [id number] Yanick Shoemaker PCP - External Follow Up General Surgery 06/15/16 MD Shikha C [address] [place] [address] Lito Kramer, PCP - General Lymphoma and Myeloma 08/14/20 [facility] [place], [place] [id number]
--- OUTSIDE RECORDS SUMMARY | 2021-06-10 19:05 | XMS REPORT | Continuity of Care Document ---
:1950 Author Organization [facility] t Address [address] Patel [address] [place] [id number] Care Team Providers Name Role Phone Pcp, Does Not Have A Primary Care Physician A_Byrd Attending Clinician Unavailable Nurse, Pob Immunization Attending Clinician Unavailable Gurinder Bourne DO Attending Clinician VAN MANTILLA Attending Clinician Unavailable Brennon BRIZUELA Attending Clinician Unavailable Only, Db Test Attending Clinician Unavailable Martínez QUACH Attending Clinician MARTÍNEZ Attending Clinician Unavailable Shirin QUACH Attending Clinician BECKY GOMEZ Attending Clinician Unavailable IHDE_G Attending Clinician Unavailable A_Byrd Admitting Clinician Unavailable IHDE_G Admitting Clinician Unavailable Payers Payer Name Policy Type Policy Effective Date Expiration Date Sour ce Number [place] [id number] 2014 (PPO) 8 00:00:00 BCBS 2 [id number] 2021 8 00:00:00 MEDICAREMEDICARE PART [id number] 2017 MD Cope [id number] 2016-P 00:00:00 [id number] [facility] [address] [address]Medicare BLUE CROSS BLUE [id number] 2014 MD Radhames [facility] [place] PPO 8 00:00:00 [id number] 5-Present[address], [place] [address]AD[address] Problems Condition Condition Condition Status Onset Resolution Last Treating Co mments Source Name Details Category Date Date Treatment Clinician Date Hyperlipid Diagnosis Active 2020-062021-03-26 Memoria emia, 0- 17:57:45 l unspecifie 00:00: Gurwinder n d Hyperlipid 00 hyperlipid emia, emia type unspecifie - d Controlled hyperlipid emia type - Controlled Active 03/26/2021 [facility] Chronic Diagnosis Active 2020-062021-03-26 Me moria midline 17:57:45 l low back Chronic 00:00: Ana nn pain, midline 00 unspecifie low back d whether pain, sciatica unspecifie present - d whether Unchanged sciatica present - Unchanged Active [facility] CAD Condition Active 2020-062021-04-16 Mem oria (coronary 17:50:29 l artery CAD 00:00: Haris disease) (coronary 00 artery disease) Active 03/26/2021 04/16/2021 [facility] Herpes Herpes Problem Active [place] simplex Simplex [...] Mem oria 08-01 06:59:00 l C83.3 00:00: [place] 00 Active 05/31/2016 [place] MESENTERIC Diagnosis Active 2015-062016-05-02 Memoria LYMPH 06-25 07:59:00 l NODE-I88.0 00:00: Gurwinder n MESENTERIC 00 LYMPH NODE-I88.0 Active 04/25/2016 [place] Backache Problem Active 2016-06-03 Mem oria (finding) 02:23:46 l Backache Gurwinder n (finding) Active Problem 06/03/2016 [facility] [place] Gastroesop Problem Active 2016-06-03 M emoria hageal 02:23:46 l reflux Haris disease Gastroesop (disorder) hageal reflux disease (disorder) Active Problem 06/03/2016 [facility] [place] Neck pain Problem Active 2016-06-03 Me moria (finding) 02:23:46 l Neck [place] pain (finding) Active Problem 06/03/2016 [facility] [place] SARS-CoV-2 Diagnosis Active 2021-04-19 Memoria vaccinatio 16:44:40 l n [place] SARS-CoV-2 vaccinatio n Active 04/19/2021 MD Cope Encounter Diagnosis Active 2021-03-26 Memoria for 17:57:45 l immunizati Gurwinder n on - Encounter Unchanged for immunizati on - Unchanged Active 1 [facility] Chronic Diagnosis Active 2021-04-16 Me moria lumbosacra 17:50:29 l l pain Chronic [place] lumbosacra l pain Active 1 [facility] Lumbar Diagnosis Active 2021-04-16 Mem oria radiculiti 17:50:29 l s Lumbar [place] radiculiti s Active 04/16/2021 [facility] Degenerati Diagnosis Active 2021-04-16 Memoria ve disc 17:50:29 l disease, [place] lumbar Degenerati ve disc disease, lumbar Active 1 [facility] Anxiety Problem Active 2016-06-03 Kobi thania (finding) 02:23:46 l Anxiety [place]is (finding) Active Problem 06/03/2016 [place] Recurrent Recurrent Problem Active [place] herpes [...] Active [place] maxillary Maxillary da sinusitis Sinusitis Medi y[facility] Has a sore Has a Sore [...] [place] [facility] of da mesentery Mesentery [facility] yash Group Gastrointe Gastrointe Problem Active M [...] Type Date Date Clinician Tylenol Tylenol Active Rash 2020-06 Memoria 0-22 l 00:00: [place] 00 Acetamin Acetamin Active Low Rash 2016- Memori a ophen ophen 1-11 l Injectio Injectio 00:00: Gurwinder n n n 00 Tylenol Allergy Active Rash [place] to da substanc [facility] e Group NO KNOWN Drug Active Univers ALLERGIE Class ity of S [facility] Family History Family Member Diagnosis Comments Start [...] cancer Radhames son Maternal aunt -Gastrointestinal MD Quinn nderson (Esophagus, Liver, Bile Duct, Stomach, Pancreas, Colon, Rectum, Anus Maternal aunt -Leukemia MD Cope Social History Social Habit Start Date Stop Date Quantity Comments Source Exposure to Not sure University of SARS-CoV-2 (event) [facility] Alcohol intake 2019-10-04 2019-10-04 Current MD Cristobal onofre 00:00:00 00:00:00 non-drinker of alcohol (finding) Cigarettes smoked 2016-06-15 2016-06-15 MD Rojas castellano current (pack per 00:00:00 00:00:00 day) - Reported Cigarette 2016-06-15 2016-06-15 MD Cope pack-years 00:00:00 00:00:00 Tobacco use and 2016-06-15 2016-06-15 Smokeless MD Page on exposure 00:00:00 00:00:00 tobacco non-user Social History 2016[facility]04[facility]25 [facility]00 History of tobacco 1968-06-05 1978-06-05 Current smoker MD Cope use 00:00:00 00:00:00 Sex [birth year] MD Page on 00:00:00 00:00:00 Smoking Status Start Date Stop Date Source Unknown if ever smoked [facility] Social History [facility] Social History 2016-06-15 00:00:00 2016-06-15 00:00:00 [facility] Medications Ordered Filled Start Stop Current Ordering Indication Dosage Frequency Signature Comments Components Source Medication Medication Date Date Medication? Clinician (SIG) Name Name acyclovir 2020-06 Yes Take 2 Memori a (ZOVIRAX) 1-15 capsules l 200 mg 16:44: by mouth [place] capsule 40 as needed. acyclovir 2020-06 Yes Apply 1 Memor ia (ZOVIRAX) 1-15 applicatio l 5% cream 16:44: n [place] 40 topically to affected area(s) as needed. [...] tablet by l mg tablet 16:44: mouth Haris 40 every 6 (six) hours as needed. carisoprodo 2020-06 Yes Take 1 Kobi thania l (SOMA) 1-15 tablet by l 350 mg 16:44: mouth as [place] tablet 40 needed. calcium 2020-06 Yes Chew 2 Memoria carbonate 1-15 tablets as l (TUMS) 1000 16:44: needed. Her walters mg (400 mg 40 elemental calcium) chewable tablet HYDROXYZINE 2020-06 Yes Take 100 Me moria PAMOATE 1-15 mg by l ORAL 16:44: mouth Haris 40 daily. Patient states that she takes this medication in the middle of the day. aspirin 81 2020-06 Yes Take 81 mg M emoria mg EC 1-15 by mouth l tablet 16:44: daily. [place] 40 amLODIPine 2020-06 Yes Take 5 mg [...] mouth l CR 30 MG 17:50: daily [place] oral TABLET 29 SR 24 HR Fenofibrate 2020-06 Yes Take 145 Me moria 145 MG oral 1-12 mg by l Tablet 17:50: mouth Haris 29 daily hydroCHLORO 2020-06 Yes Take 50 mg Memoria thiazide 50 1-12 by mouth l MG oral 17:50: daily [place] Tablet 29 hydrOXYzine 2020-06 Yes Take 50 [...] mg by l oral 17:50: mouth 5 [place] Suspension 29 times daily Bimatoprost 2020-06 Yes 1 drop Kobi thania (Lumigan) 1-12 nightly l 0.01 % 17:50: [place] ophthalmic 29 Solution cycloSPORIN 2020-06 Yes Apply to Me moria E (RESTASIS 1-12 eye l OP) 17:50: Haris 29 Fluocin-Hyd 2020-06 Yes Apply 1 Mem oria roquinone-T 1-12 applicatio l retinoin 17:50: n Haris 0.01-4-0.05 29 topically % apply nightly externally Cream Aspirin 2020-06 Yes Take 81 mg Kobi thania (Aspirin 1-12 by mouth l 81) 81 MG 17:50: daily [place] oral 29 Chewable Tablet Atorvastati 2020-06 Yes Take 40 mg Memoria n Calcium 1-12 by mouth l 40 MG oral 17:50: daily Gurwinder n Tablet 29 Famotidine 2020-06 Yes Take 40 mg M emoria 40 MG oral 1-12 by mouth l Tablet 17:50: daily Haris 29 Iron-Vitami 2020-06 Yes Take by Mem oria n C (Iron 1-12 mouth l 100/C) 17:50: Haris 100-250 MG 29 oral Tablet ESTRADIOL 2020-06 Yes Take by Memor ia OR 1-12 mouth l 17:50: Patient Haris 29 states taking one daily Estrogens 2020-06 No Take 1.25 Mem oria Conjugated 1-12 mg by l (Premarin) 00:00: mouth Gurwinder n 1.25 MG 00 daily oral Tablet Patient states taking one daily Gemfibrozil 2020-06 Yes Take 1 Kobi thania 600 MG oral 0-22 tablet l Tablet 00:00: (600 mg [place] 00 total) by mouth 2 times daily (before meals) No known No Univers medications 9-20 ity of 19:32: [address] No known No Univers medications 9-20 ity of 19:32: [address] No known No Univers medications 9-20 ity of 19:32: [address] amLODIPine Yes 5mg Take 5 mg MD (NORVASC) 5 5-01 by mouth Rojas rso mg tablet 14:53: daily. n 57 gemfibrozil 0 Yes gemfibrozi MD (LOPID) 600 5-01 l [...] Patient states she does two drops atorvastati Yes Take 40 mg Memoria n (LIPITOR) 3-03 by mouth l 40 mg 00:00: at Haris tablet 00 bedtime. atorvastati Yes 40mg Take 40 mg MD n (LIPITOR) 3-03 by mouth Rojas rso 40 mg 00:00: at n tablet 00 bedtime. fluocinolon Yes Patient Mem oria e 0.01 % 8-26 uses this l oil 00:00: 2-4 times [place] 00 a day fluocinolon Yes Patient MD [...] Weight 67.864, kg, Start date: 05/02/16 14:33:00 MANAGED CARE ANALYST, Stop date: 05/02/16 14:33:00 MANAGED CARE ANALYST glycopyrrol 2015-06 No Route: IV, Memoria ate (ANES) 07-02 Drug form: l 18:36: INJ, ONCE, Stop date: 05/02/16 12:36:00 MANAGED CARE ANALYST neostigmine 2015-06 No Route: IV, Memoria (ANES) 07-02 Drug form: l 18:36: INJ, ONCE, Stop date: 05/02/16 12:36:00 MANAGED CARE ANALYST Meperidine 2015-06 No Notes: Memor ia 07-02 (Same as: l 18:29: Demerol) "Use Precaution in Elderly, Seizure disorders, and Renal impairment " Dexamethaso 2015-06 No Notes: Kobi thania ne 07-02 Concentrat l 18:29: ion: [place] 00 4mg/ml Ondansetron 2015-06 No Notes: Kobi thania 07-02 (Same as: l 18:29: Zofran) MEDICATION WASTE Product Size: 4 mg Product Wasted: ___ mg Ketorolac 2015-06 No 4 days Memor ia 07-02 l 18:29: MEDICATION Haris 00 WASTE Product Size: 30 mg Product Wasted: ___ mg Oxycodone 2015-06 No Notes: Memori a 07-02 (Same as: l 18:29: 'Roxicodon e) Acetaminoph 2015-06 No 1,000 mg, M emoria en 07-02 Route: l 18:29: IVPB, Drug form: INJ, Q6H, Dosing Weight 67.727, kg, PRN Pain Score 1-3, Start date: 05/02/16 12:29:00 MANAGED CARE ANALYST, Duration: 1 doses or times, Stop date: [...] 17:54: INJ, ONCE, Stop date: 05/02/16 11:54:00 MANAGED CARE ANALYST ePHEDrine 2015-06 No Route: IV, Me moria (ANES) 07-02 Drug form: l 17:14: INJ, ONCE, Stop date: 05/02/16 11:14:00 MANAGED CARE ANALYST metoclopram 2015-06 No Route: IV, Memoria simeon (ANES) 07-02 Drug form: l 17:04: INJ, ONCE, Stop date: 05/02/16 11:04:00 MANAGED CARE ANALYST famotidine 2015-06 No Route: IV, M emoria (ANES) 07-02 Drug form: l 17:04: INJ, ONCE, Stop date: 05/02/16 11:04:00 MANAGED CARE ANALYST rocuronium 2015-06 No Route: IV, M emoria (ANES) 07-02 Drug form: l 17:04: INJ, ONCE, Stop date: 05/02/16 11:04:00 MANAGED CARE ANALYST acetaminoph 2015-06 No Route: IV, Memoria en (ANES) 07-02 Drug form: l 17:04: INJ, ONCE, Stop date: 05/02/16 11:04:00 MANAGED CARE ANALYST propofol 2015-06 No Route: IV, Mem oria (ANES) 07-02 Drug form: l 16:59: INJ, ONCE, Stop date: 05/02/16 10:59:00 MANAGED CARE ANALYST succinylcho 2015-06 No Route: IV, Memoria line (ANES) 07-02 Drug form: l 16:59: INJ, ONCE, Stop date: 05/02/16 10:59:00 MANAGED CARE ANALYST midazolam 2015-06 No Route: IV, Me moria (ANES) 07-02 Drug form: l 16:59: SOLN, Haris 00 ONCE, Stop date: 05/02/16 10:59:00 MANAGED CARE ANALYST fentaNYL 2015-06 No Route: IV, Mem oria (ANES) 07-02 Drug form: l 16:59: INJ, ONCE, Stop date: 05/02/16 10:59:00 MANAGED CARE ANALYST lidocaine 2015-06 No Route: IV, Me moria (ANES) 07-02 Drug form: l 16:59: INJ, ONCE, Stop date: 05/02/16 10:59:00 MANAGED CARE ANALYST cefOXitin 2015-06 No Route: IV, Me moria (ANES) 07-02 Drug form: l 16:54: INJ, ONCE, Stop date: 05/02/16 10:54:00 MANAGED CARE ANALYST LR 1000 mL 2015-06 No Route: IV, M emoria INJ (ANES) 07-02 Total l 16:19: Volume: [place] 00 1,000, Start date: 05/02/16 10:19:00 MANAGED CARE ANALYST, Stop date: 05/02/16 11:19:00 MANAGED CARE ANALYST Neurontin 2015-06 No Notes: Memori a 07-02 (Same as: l 15:30: Neurontin) Calcium 2015-06 No 1,000 mL, Memor ia Chloride 07-02 Rate: 25 l 0.0014 13:59: ml/hr, MEQ/ML / 00 Infuse Potassium over: 40 Chloride hr, Route: 0.004 IV, Dosing MEQ/ML / Weight Sodium 67.727 kg, Chloride Total 0.103 Volume: MEQ/ML / 1,000, Sodium Start Lactate date: 0.028 05/02/16 MEQ/ML 7:59:00 Injectable MANAGED CARE ANALYST, Solution Duration: 30 day, Stop date: 06/01/16 7:58:00 MANAGED CARE ANALYST Lovenox 2015-06 No Notes: Memoria 07-02 (Same as: l 12:00: Lovenox) CeleBREX 2015-06 No Notes: Memoria 07-02 NSAID. l 12:00: Please [place] 00 check indication . Not for seizure. (Same As: CeleBREX) Mefoxin + 2015-06 No Notes: Memori a sodium 07-02 (Same As: l chloride 12:00: Mefoxin) Ana nn 0.9% INJ 00 100 mL MEDICATION WASTE Product Size: 2000 mg Product Wasted: ___ mg Neurontin 2015-06 No Notes: Memori a 07-02 (Same as: l 12:00: Neurontin) Fish Oil 2015-06 Yes = 2 tab, Memor ia 1200 mg 1-21 PO, PRN, 0 l oral 17:54: Refill(s) [place] capsule 00 biotin 1000 2015-06 Yes 2,000 [...] tab, PO, l Tablet 17:52: BID, 0 [place] 00 Refill(s) latanoprost 2015-06 Yes 1 drp, [...] cap, PO, l capsule 17:50: TID, 0 Haris 00 Refill(s) carisoprodo 2015-06 Yes 350 mg = 1 Memoria l 350 mg -21 tab, PO, l oral tablet 17:49: QID, 0 Herm gricel 00 Refill(s) Estrogens, 2015-06 Yes 1.25 mg = Me moria Conjugated -21 1 tab, PO, l (CORRECTION) 1.25 17:48: Daily, 0 Her walters MG Oral 00 Refill(s) Tablet [Premarin] FLUoxetine 2015-06 Yes 20 mg = 1 Me moria 20 mg oral 1-21 tab, PO, l tablet 17:47: Daily, 0 [place] 00 Refill(s) isosorbide 2015-06 Yes 30 mg [...] 0-20 TID BEFORE l tab 00:00: MEALS [place] 00 diethylprop 2015-06 Yes TK 1 T [...] Date Status Commen ts Source Name Name SARS-COV-2 COVID-19 2021-06-04 Completed Unive rsity of MODERNA BOOSTER 00:00:00 [facility] VACCINE Branch Influenza Virus 2021-03-26 Completed [facility] Vaccine, 00:00:00 Quadrivalent, High Dose, Age 65 And Up Covid-19 Vaccine 2020-08-05 Completed [facility] (Moderna), Mrna-lnp, 00:00:00 Mio Protein, Pf, 100 Mcg/0.5ml,IM Covid-19 Vaccine 2020-07-08 Completed [facility] (Moderna), Mrna-lnp, 00:00:00 Mio Protein, Pf, 100 Mcg/0.5ml,IM Tdap Tdap 2015-10-02 Completed [place] 15:44:[facility] influenza, high dose influenza, high dose 2014-04-16 Completed [place] seasonal seasonal 00:00:00 Medical Group pneumococcal pneumococcal 2013-04-02 Completed [place] polysaccharide PPV23 polysaccharide PPV23 18:27:10 Medical Group influenza, seasonal, influenza, seasonal, 2013-04-02 Completed [place] injectable injectable 18:27:10 [facility] Group Vital Signs Vital Name Observation Time Observation Value Comments Source Height 2021-02-18 00:00:00 61 [in_i] [facility] BMI (Body Mass 2021-02-18 00:00:00 33.6 kg/m2 [facility] Body Weight 2021-02-18 00:00:00 2848 [oz_av] [facility] BP Diastolic 2020-11-10 00:00:00 67 mm[Hg] [facility] Height 2020-11-10 00:00:00 61 [in_i] [facility] BMI (Body Mass 2020-11-10 00:00:00 34.5 kg/m2 [facility] BP Systolic 2020-11-10 00:00:00 145 mm[Hg] [facility] Body Weight 2020-11-10 00:00:00 2921.6 [oz_av] [facility] Height 2020-08-19 00:00:00 61 [in_i] [facility] BMI (Body Mass 2020-08-19 00:00:00 34.8 kg/m2 [facility] Body Weight 2020-08-19 00:00:00 2944 [oz_av] [facility] Height 2020-02-20 00:00:00 61 [in_i] [facility] BMI (Body Mass 2020-02-20 00:00:00 34.8 kg/m2 [facility] Body Weight 2020-02-20 00:00:00 2944 [oz_av] [facility] Height 2019-12-11 00:00:00 61 [in_i] [facility] BMI (Body Mass 2019-12-11 00:00:00 34.8 kg/m2 [facility] Body Weight 2019-12-11 00:00:00 2944 [oz_av] [facility] BP Diastolic 2019-07-18 00:00:00 72 mm[Hg] [facility] Height 2019-07-18 00:00:00 61 [in_i] [facility] BMI (Body Mass 2019-07-18 00:00:00 34.8 kg/m2 [facility] BP Systolic 2019-07-18 00:00:00 138 mm[Hg] [facility] Body Weight 2019-07-18 00:00:00 184 [lb_av] [facility] BP Diastolic 2019-06-11 00:00:00 72 mm[Hg] [facility] Height 2019-06-11 00:00:00 61 [in_i] [facility] BMI (Body Mass 2019-06-11 00:00:00 34.4 kg/m2 [facility] BP Systolic 2019-06-11 00:00:00 138 mm[Hg] [facility] Body Weight 2019-06-11 00:00:00 182 [lb_av] [facility] BP Diastolic 2019-05-22 00:00:00 70 mm[Hg] [facility] Height 2019-05-22 00:00:00 61 [in_i] [facility] BMI (Body Mass 2019-05-22 00:00:00 34.4 kg/m2 [facility] Index) Group BP Systolic 2019-05-22 00:00:00 141 mm[Hg] [facility] Body Weight 2019-05-22 00:00:00 2912 [oz_av] [facility] BP Diastolic 2019-05-07 00:00:00 71 mm[Hg] [facility] Height 2019-05-07 00:00:00 61 [in_i] [facility] BMI (Body Mass 2019-05-07 00:00:00 34.4 kg/m2 [facility] Index) Group BP Systolic 2019-05-07 00:00:00 141 mm[Hg] [facility] Body Weight 2019-05-07 00:00:00 2912 [oz_av] [facility] BP Diastolic 2019-03-26 00:00:00 69 mm[Hg] [facility] Height 2019-03-26 00:00:00 61 [in_i] [facility] BMI (Body Mass 2019-03-26 00:00:00 33.6 kg/m2 [facility] Index) Group BP Systolic 2019-03-26 00:00:00 138 mm[Hg] [facility] Body Weight 2019-03-26 00:00:00 2848 [oz_av] [facility] BP Diastolic 2018-12-28 00:00:00 74 mm[Hg] [facility] Height 2018-12-28 00:00:00 61 [in_i] [facility] BMI (Body Mass 2018-12-28 00:00:00 33.8 kg/m2 [facility] Index) Group BP Systolic 2018-12-28 00:00:00 135 mm[Hg] [facility] Body Weight 2018-12-28 00:00:00 2864 [oz_av] [facility] BP Diastolic 2018-05-31 00:00:00 71 mm[Hg] [facility] Height 2018-05-31 00:00:00 61 [in_i] [facility] BMI (Body Mass 2018-05-31 00:00:00 35 kg/m2 [facility] BP Systolic 2018-05-31 00:00:00 133 mm[Hg] [facility] Body Weight 2018-05-31 00:00:00 2960 [oz_av] [facility] Systolic (mm Hg) 2021-04-16 14:18:00 Kobi rial [place] Diastolic (mm Hg) 2021-04-16 14:18:00 Mem orial [place] Heart Rate 2021-04-16 14:18:00 [facility] Height 2021-04-16 14:18:00 154.9 cm [facility] [place] Weight 2021-04-16 14:18:00 [facility] [place] Systolic (mm Hg) 2021-03-26 14:34:00 Kobi rial [place] Diastolic (mm Hg) 2021-03-26 14:34:00 Mem orial [place] Heart Rate 2021-03-26 14:34:00 [facility] [place] Temperature Oral (F) 2021-03-26 14:34:00 36.61 Leni [facility] [place] Respitory Rate 2021-03-26 14:34:00 Memori al [place] Height 2021-03-26 14:34:00 154.9 cm [facility] [place] Weight 2021-03-26 14:34:00 [facility] [place] Systolic (mm Hg) 2016-05-31 14:00:00 Kobi rial Haris Diastolic (mm Hg) 2016-05-31 14:00:00 Mem orial [place] Respitory Rate 2016-05-31 14:00:00 Memori al [place] Temperature Oral (F) 2016-05-31 14:00:00 98.4 F [facility] [place] Weight 2016-05-31 13:20:00 [facility] [place] BMI Calculated 2016-05-31 13:20:00 Memori al [place] Height 2016-05-31 13:20:00 154.94 cm [facility] [place] Respitory Rate 2016-05-02 20:45:00 Memori al [place] Systolic (mm Hg) 2016-05-02 20:45:00 Kobi rial [place] Diastolic (mm Hg) 2016-05-02 20:45:00 Mem orial [place] Respitory Rate 2016-05-02 20:15:00 Memori al [place] Systolic (mm Hg) 2016-05-02 20:15:00 Kobi rial [place] Diastolic (mm Hg) 2016-05-02 20:15:00 Mem orial [place] Systolic (mm Hg) 2016-05-02 19:45:00 Kobi rial Haris Diastolic (mm Hg) 2016-05-02 19:45:00 Mem orial Haris Respitory Rate 2016-05-02 19:45:00 Memori al [place] Heart Rate 2016-05-02 14:45:00 [facility] [place] Weight 2016-05-02 14:23:00 [facility] [place] BMI Calculated 2016-05-02 14:23:00 Joe al [place] Height 2016-04-25 17:38:00 154.94 cm [facility] Procedures Procedure Date / Time Performing Source Performed Clinician SARS-COV-2 COVID-19 VACCINE 2021-06-04 Doctor Univ ersity of BOOSTER,0.25ML,IM (MODERNA) 19:58:50 [place]igned, [place] [facility] [place] [facility] LUMBAR SPINE 2 VIEWS 2021-04-16 [facility]R, lumbar spine 2020-02-20 [facility] 00:[facility]:00 Group MRI, lumbar spine, w/o contrast 2020-02-20 [facility] 00:00:00 Group unlisted imaging order 2019-06-11 [facility] 00:00:00 Group unlisted imaging order 2019-05-07 [facility] 00:00:00 Group unlisted imaging order 2018-12-28 [facility] 00:00:00 Group Cataract surgery 2012-06-05 [facility] Gurwinder n 00:00:00 Removal - procedure 2005-06-05 [facility] 00:00:00 Hysterectomy 1988-06-05 [facility] 00:00:00 Appendectomy 1979-06-05 [facility] 00:00:00 Breast implantation 1974-06-05 [facility] 00:00:00 Miscellaneous operations 1960-06-05 Memoria l [place] 00:00:00 Breast biopsy and related Memori al [place] procedures Laparoscopy<sup>1</sup> [facility] [place] [facility]aract [facility]ste[facility] Esophagogastroduodenoscopy (Surg) [facility] Plan of Care Planned Activity Planned Date Details Comments Source Future Scheduled 1962 COVID-19 Vaccination MD Cope Test 00:00:00 (1) [code = COVID-19 Vaccination (1)] Future Scheduled MR LUMBAR SPINE W/WO Mem orial Haris Test CONTRAST [code = 36460] Future Scheduled CREATINE, SERUM [code Me morial Mc[place]en Test = 09058] Future Scheduled Bone density scan Memori al [place] Test (procedure) [code = 206611110] Future Scheduled PNEUMOCOCCAL 65+ (1 of M emorial [place] Test 1 - PPSV23) [code = PNEUMOCOCCAL 65+ (1 of 1 - PPSV23)] Future Scheduled Screening for [facility] Test malignant neoplasm of colon (procedure) [code = 801037221] Future Scheduled Screening for [facility] Test malignant neoplasm of breast (procedure) [code = 360616512] Future Scheduled Zoster (Shingles) Memori al [place] Test Vaccine (1 of 2) [code = Zoster (Shingles) Vaccine (1 of 2)] Future Scheduled Physical Exam 40 and Mem orial Haris Test over [code = Physical Exam 40 and over] Future Scheduled Lipid panel [facility] He [facility]mann Test (procedure) [code = 41096215] Future Scheduled TDAP [code = TDAP] Memor ial Haris Test Future Scheduled EYE EXAM [code = EYE Mem orial [place] Test EXAM] Future Scheduled COVID-19 Vaccination Mem orial [place] Test (1) [code = COVID-19 Vaccination (1)] Encounters Start End Encounter Admission Attending Care Care Encounter Source Date/Time Date/Time Type Type Clinicians Facility Department ID 2021-06-08 2021-06-08 Outpatient A_Byrd [facility] [id number] [place] 04:31:00 04:31:00 [facility] 2021-06-04 2021-06-04 Imm/Inj Nurse, Adc Pob Immunization [facility] [id number] Univers 14:40:00 14:40:00 Visit Mike Bourne [id number] ity of [id number] [id number] [place] kimber [facility] [address] [facility] 2021-04-16 2021-04-16 Office nullFlavo Bond [id number] Memoria 13:58:02 14:28:02 Visit r [facility]ce and l [facility] 2021-03-26 2021-03-26 Office nullFlavo Weldon [id number] Memoria 14:32:26 15:02:26 Visit harleen weiner [facility] 2021-03-26 2021-03-26 Outpatient CONCHIS MANTILLA [id number] [place] 09:30:00 09:30:00 MONSERRAT hernandez 2021-02-23 2021-02-23 Letter ALEX Willett [id number] Univers 00:00:00 00:00:00 (Out) Jason EVANS [id number] it y of [facility] [id number] Junior as [id number] [address] 2021-02-22 2021-02-22 Laboratory Only, Ang Db Test [facility] 1.2.8 40.114 [id number] Univers 19:30:19 19:45:19 Only Cruz Soliz [facility] [id number] ity of [place] 4.2.7.2.686 Junior as Sebastian?Blea [id number] Ks dical kney 370 [facility] Office Building 2021-02-22 2021-02-22 Outpatient Harleen SOLIZ [facility] [id number] Univers 19:15:00 19:15:00 CRUZ ity [facility] 2021-02-18 2021-02-18 Outpatient Cheyenne_Leno ADAMS MM 1827-20 210 [place] 02:46:00 02:46:00 916 [facility] 2021-02-18 2021-02-18 Elpidio ADAMS [place] - [id number] M atagor 00:00:00 00:00:00 MD Leno: [address] [place] [address] , Ph. 2021-01-08 2021-01-08 Outpatient CONCHIS MANTILLA [id number] [place] 10:30:00 10:30:00 MONSERRAT Hoffmanol david 2021-01-08 2021-01-08 Outpatient CONCHIS MANTILLA [id number] [place] 00:00:00 00:00:00 MONSERRAT Hoffmanol d 2020-11-10 2020-11-10 Outpatient A_Byrd MMG MMG 1827-20 210 [place] 05:07:00 05:07:00 608 [facility] 2020-11-10 2020-11-10 Outpatient A_Byrd MMG MMG 1827-20 210 [place] 05:07:00 05:07:00 609 [facility] 2020-11-10 2020-11-10 Outpatient A_Byrd MMG MMG 1827-20 210 [place] 05:07:00 05:07:00 610 [facility] 2020-11-10 2020-11-10 Elpidio N MMG [place] - [id number] M [place] 00:00:00 00:00:00 MD Leno: [address] [place] [address] , Ph. 2020-08-31 2020-08-31 Outpatient A_Byrd MMG MMG 1827-20 210 [place] 03:23:00 03:23:00 607 [facility] 2020-08-19 2020-08-19 Outpatient A_Byrd MMG MMG 1827-20 210 [place] 11:17:00 11:17:00 317 [facility] 2020-08-19 2020-08-19 Outpatient A_Byrd MMG MMG 1827-20 210 [place] 11:17:00 11:17:00 318 [facility] 2020-08-19 2020-08-19 Elpidio N MMG [place] - [id number] M [place] 00:00:00 00:00:00 MD Leno: [address] [facility] [place] - [address], [facility], [facility] [address] , Ph. 2020-08-13 2020-08-13 Outpatient A_Byrd MMG MMG 1827-20 210 [place] 05:30:00 05:30:00 311 [facility] 2020-08-13 2020-08-13 Megan Cope [id number] Memoria 00:00:00 00:00:00 Only harleen Carballo 2020-07-14 2020-07-14 Outpatient A_Byrd MMG MMG 1827-20 210 [place] 02:56:00 02:56:00 209 [facility] 2020-07-14 2020-07-14 Outpatient A_Byrd MMG MMG 1827-20 210 [place] 02:56:00 02:56:00 210 [facility] 2020-04-22 2020-04-22 Outpatient A_Byrd MMG MMG 1827-20 210 [place] 02:42:00 02:42:00 202 Medical [facility] 2020-04-22 2020-04-22 Outpatient A_Byrd MMG MMG 1827-20 201 [place] 02:42:00 02:42:00 118 [facility] 2020-04-06 2020-04-06 Outpatient [facility] [id number] [address] [place] 00:00:00 00:00:00 PATRICIA [address] 2020-03-24 2020-03-24 Outpatient [facility] [id number] [address] [place] 00:00:00 00:00:00 PATRICIA [address] 2020-03-24 2020-03-24 Outpatient [facility] [id number] [address] [place] 00:00:00 00:00:00 PATRICIA [address] 2020-03-24 2020-03-24 Outpatient [facility] [id number] [address] [place] 00:00:00 00:00:00 PATRICIA [address] 2020-03-04 2020-03-04 Outpatient A_Byrd MMG MMG 1827-20 200 [place] 10:00:00 10:00:00 930 Medical Group 2020-02-20 2020-02-20 Outpatient IHDE_G MMG MMG 1827-20 200 [place] 09:55:00 09:55:00 917 Medical Group 2020-02-20 2020-02-20 Elpidio N MMG [place] - [id number] M [place] 00:00:00 00:00:00 MD Leno: [address] [place] [address] , Ph. 2020-01-28 2020-01-28 Outpatient IHDE_G MMG MMG 1827-20 200 [place] 11:38:00 11:38:00 825 Medical Group 2020-01-28 2020-01-28 Outpatient IHDE_G MMG MMG 1827-20 200 [place] 11:38:00 11:38:00 916 [facility] Group 2019-12-11 2019-12-11 Outpatient IHDE_G MMG MMG 1827-20 200 [place] 06:44:00 06:44:00 708 Medical Group 2019-12-11 2019-12-11 Elpidio N MMG [place] - [id number] M [place] 00:00:00 00:00:00 MD Leno: [address] [place] [address] , Ph. 2019-10-29 2019-10-29 Outpatient IHDE_G MMG MMG 1827-20 200 [place] 06:35:00 06:35:00 526 Medical [facility] 2019-10-29 2019-10-29 Elpidio N MMG [place] - [id number] M [place] 00:00:00 00:00:00 MD Leno: [address] [place] [address] , Ph. 2019-08-12 2019-08-12 Outpatient IHDE_G MMG MMG 1827-20 200 [place] 11:08:00 11:08:00 309 [facility] 2019-08-07 2019-08-07 Outpatient IHDE_G MMG MMG 1827-20 200 [place] 09:34:00 09:34:00 304 Medical Group 2019-07-22 2019-07-22 Outpatient IHDE_G MMG MMG 1827-20 200 [place] 04:59:00 04:59:00 217 Medical Group 2019-07-18 2019-07-18 Outpatient IHDE_G MMG MMG 1827-20 200 [place] 05:21:00 05:21:00 213 Medical Group 2019-07-18 2019-07-18 Simón [facility] [place] - [id number] M [place] 00:00:00 00:00:00 Agus Contreras MD: Medical [facility] [address], [place] [address] , Ph. [phone] 2019-07-05 2019-07-05 Outpatient IHDE_G MMG MMG 1827-20 [...] 12:09:00 114 Medical Group 2019-06-11 2019-06-11 Outpatient A_Byrd MMG MMG 1827-20 [address] [place] 07:19:00 07:19:00 107 Medical Group 2019-06-11 2019-06-11 Simón [facility] [place] - [id number] M at[place]or 00:00:00 00:00:00 Agus Contreras MD: [facility] [address], [place] [address] , Ph. [phone] 2019-05-22 2019-05-22 Elpidio Onofre MM [place] - [id number] M [place] 00:00:00 00:00:00 MD Leno: [address], [facility], [place] [address] , Ph. 2019-05-07 2019-05-07 Elpidio Onofre MM [place] - [id number] M [place] 00:00:00 00:00:00 MD Leno: [address], [facility], [facility] [place] [address] , Ph. 2019-03-26 2019-03-26 Elpidio Onofre MM [place] - [id number] M [place] 00:00:00 00:00:00 MD Leno: [address], [place] [address] , Ph. 2018-12-28 2018-12-28 Elpidio Onofre MM [place] - [id number] M [place] 00:00:00 00:00:00 MD Leno: [address], [facility], [facility] [place] [address] , Ph. 2018-05-31 2018-05-31 Elpidio Onofre MM [place] - [id number] M [place] 00:00:00 00:00:00 MD Leno: [address], [facility], [facility] [place] [address] , Ph. 2016-05-31 2016-06-01 [facility] [id number] [facility] 12:[facility]00 05:59:00 harleen Carballo 01 l [place] 2016-05-02 2016-05-02 [facility] [id number] [facility] 13:55:11 21:05:00 Surgery harleen Carballo 00 l [place] Results Test Description Test Time Test Comments Results Result Comments Source Potassium Level 2019-08-23 09:37:59 Test Item Value Reference Range Interpretation Comme nts Potassium Level (test code = Potassium Level) 3.3 mmol/L 3.5-5.1 L Basic Metabolic [id number] 08:39:57 Test Item Value Reference Range Interpretation [...] 8.3-10.5 code = Calcium Level) Basic Metabolic [id number] 08:39:57 Test Item Value Reference Range Interpretation [...] National Kidney Foundation, http://nkdep.ni h.gov Basic Metabolic Zzeue9501-23-30 08:39:57 Test Item Value Reference Range Interpretation [...] ag e have not been validated by [facility] MDRD study and should be interpreted wit [...] ag e have not been validated by [facility] MDRD study and should be interpreted wit h caution. eGFR R esult Interpretation: eGFR > or = 60 is in the Normal RangeeGF R < 60 may mean kid steve diseaseeGFR < 1 5 may mean kidney failure Rang es recommended by the National Kidney Foundation, http://nkdep.ni h.gov Prothrombin Time and [id number] 08:30:21 Test Item Value Reference Range Interpretation Comments Prothrombin Time (test code = 12.2 seconds 9.8-13.4 Prothrombin Time) INR (test code = INR) 1.0 ratio 0.6-1.2 Partial Thromboplastin [id number] 08:30:21 Test Item Value Reference Range Interpretation Comments Partial Thromboplastin Time 33.10 seconds 24.39-37.25 (test code = Partial Thromboplastin Time) Complete Blood Count with Olollrvnddrl0550-25-01 08:21:36 Test Item Value Reference Range Interpretation [...] code = IPF) 0 % N Automated Eukulzbysgwc7360-46-84 08:21:36 Test Item Value Reference Range Interpretation Comments Neutro Auto (test code = Neutro 41.9 % 36.0-70.0 Auto) Lymph Auto (test code = Lymph Auto) 45.2 % 12.0-44.0 H Prairie Auto (test code = Prairie Auto) 10.5 % 0.0-11.0 Eos, Auto (test code = Eos, Auto) 1.7 % 0.0-7.0 Basophil Auto (test code = Basophil 0.4 % 0.0-2.0 Auto) Neutro Absolute (test code = Neutro 2.9 x10 1.6-7.4 Absolute) Lymph Absolute (test code = Lymph 3.11 x10 .50-4.60 Absolute) Prairie Absolute (test code = Prairie .72 x10 .00-1.20 Absolute) Eos Absolute (test code = Eos 0.12 x10 0.00-0.74 Absolute) Baso Absolute (test code = Baso 0.03 x10 0.00-0.21 Absolute) IG [id number] 08:21:36 Test Item Value Reference Range Interpretation Comments IG (test code = IG) 0.3 % 0.0-5.0 IG Abs (test code = IG Abs) 0 x10 N CBC W Auto Differential panel - [id number] 07:27:00 Test Item Value Reference Range Interpretation Comments white blood count (test code = 5.6 K/uL 4.0-11.5 white blood count) red blood count (test code = red 4.54 M/uL 3.80-5.20 blood count) hemoglobin (test code = 10.5 g/dL 10.5-15.7 hemoglobin) hematocrit (test code = 34.3 % 34.0-50.0 hematocrit) Erythrocyte mean corpuscular 75.6 fL 86-100 L volume [Entitic volume] (test code = 04322-5) mean corpuscular hemoglobin (test 23.1 pg 26.2-33.4 [...] 44.4-80.1 leukocytes in Blood (test code = 56678-7) Granulocytes Immature [#/volume] 0.0 K/uL 0.0-0.03 in Blood (test code = 46768-8) lymphocyte% (test code = 37.5 % 10.0-50.0 lymphocyte%) mono % (test code = mono %) 6.9 % 3.6-12.0 eos % (test code = eos %) 3.0 % 0.0-5.4 Basophils/100 leukocytes in 0.5 % 0.1-1.2 Unspecified specimen (test code = 15067-8) Neutrophils.band form [#/volume] 2.92 K/uL 1.56-6.13 in Blood (test code = 57847-9) Lymphocytes [#/volume] in 2.1 K/uL 1.18-3.74 Unspecified specimen by Automated count (test code = 11178-7) mono # (test code = mono #) 0.39 K/uL 0.24-0.86 eos # (test code = eos #) 0.17 K/uL 0.04-0.36 basophil # (test code = basophil 0.03 K/uL 0.01-0.08 #) NRBC% (test code = NRBC%) 0 /100 WBC 0-0.2 NRBC# (test code = NRBC#) 0 K/uL [facility] [id number] 07:27:00 NeutrophilsBandLymphocyteAtypical LymphMonocyteEosinophilMetamyelocyteMyelocytePlatelet EstimatePlatelet MorphologyDifferential comment-[facility] CenterComprehensive metabolic 2000 panel - Serum or Fqukhp7353-25-19 07:27:00 Test Item Value Reference Range Interpretation [...] Serum or Plasma (test code = 6768-6) [facility] I.cardiac [Mass/volume] in [id number] 07:27:00 Test Item Value Reference Range Interpretation Comments cardiac troponin I (test code = cardiac <0.30 0.0-0.5 troponin I) [facility] HospitalCreat[facility] kinase.MB [Mass/volume] in Serum or Plasma 2019-06-29 07:27:00 Test Item Value Reference Range Interpretation Comments mass creatinine kinase-mb (test 1.7 NG/mL 0.0-3.6 code = mass creatinine kinase-mb) [facility] I.cardiac [Mass/volume] in [id number] 11:38:00 Test Item Value Reference Range Interpretation Comments cardiac troponin I (test code = cardiac <0.30 0.0-0.5 troponin I) [facility] kinase.MB [Mass/volume] in Serum or Plasma 2019-06-28 11:38:00 Test Item Value Reference Range Interpretation Comments mass creatinine kinase-mb (test 1.6 NG/mL 0.0-3.6 code = mass creatinine kinase-mb) [facility] [id number] 08:35:00 Test Item Value Reference Range Interpretation Comments Surgical pathology see separate pathology study (test code = report. 49471-1) [facility] I.cardiac [Mass/volume] in [id number] 06:27:00 Test Item Value Reference Range Interpretation Comments cardiac troponin I (test code = cardiac <0.30 0.0-0.5 troponin I) [facility].MB [Mass/volume] in Serum or Plasma 2019-06-28 06:27:00 Test Item Value Reference Range Interpretation Comments mass creatinine kinase-mb (test 1.7 NG/mL 0.0-3.6 code = mass creatinine kinase-mb) [facility] [Enzymatic activity/volume] in Serum or [id number] 01:44:00 Test Item Value Reference Range Interpretation Comments creatine kinase (test code = creatine 40 U/L 20-180 kinase) [facility] I.cardiac [Mass/volume] in Iylzb5387-94-72 01:44:00 Test Item Value Reference Range Interpretation Comments cardiac troponin I (test code = cardiac <0.30 0.0-0.5 troponin I) [facility] HospitalCreat[facility] kinase.MB [Mass/volume] in Serum or Plasma 2019-06-28 01:44:00 Test Item Value Reference Range Interpretation Comments mass creatinine kinase-mb (test 1.5 NG/mL 0.0-3.6 code = mass creatinine kinase-mb) [facility] W Auto Differential panel - [id number] 10:00:00 Test Item Value Reference Range Interpretation Comments white blood count (test code = 7.0 K/uL 4.0-11.5 white blood count) red blood count (test code = red 4.56 M/uL 3.80-5.20 blood count) hemoglobin (test code = 11.0 g/dL 10.5-15.7 hemoglobin) hematocrit (test code = 34.2 % 34.0-50.0 hematocrit) Erythrocyte mean corpuscular 75.0 fL 86-100 L volume [Entitic volume] (test code = 81567-8) mean corpuscular hemoglobin (test 24.1 pg 26.2-33.4 [...] 44.4-80.1 leukocytes in Blood (test code = 63077-1) Granulocytes Immature [#/volume] 0.0 K/uL 0.0-0.03 in Blood (test code = 86029-1) lymphocyte% (test code = 44.7 % 10.0-50.0 lymphocyte%) mono % (test code = mono %) 8.6 % 3.6-12.0 eos % (test code = eos %) 0.9 % 0.0-5.4 Basophils/100 leukocytes in 0.6 % 0.1-1.2 Unspecified specimen (test code = 84123-8) Neutrophils.band form [#/volume] 3.16 K/uL 1.56-6.13 in Blood (test code = 57352-3) Lymphocytes [#/volume] in 3.1 K/uL 1.18-3.74 Unspecified specimen by Automated count (test code = 99708-6) mono # (test code = mono #) 0.60 K/uL 0.24-0.86 eos # (test code = eos #) 0.06 K/uL 0.04-0.36 basophil # (test code = basophil 0.04 K/uL 0.01-0.08 #) NRBC% (test code = NRBC%) 0 /100 WBC 0-0.2 NRBC# (test code = NRBC#) 0 K/uL [facility]different[facility], bwqzl6977-50-14 10:00:00 NeutrophilsBandLymphocyteAtypical LymphMonocytePlatelet EstimateOceans Behavioral Hospital BiloxiATOLOGY2016-12-27 14:00:00 Test Item Value Reference Range Interpretation Comments Eosinophils # (test code 0.2 See_Comment [A utomated message] The = Eosinophils #) system [facility] generated this result tra nsmitted reference range : <=0.5. The reference r caren was not used to int erpret this result as normal/abnormal . [facility] DistrictZvkkvrdNDRZINPFGI2512-17-08 14:00:00 Test Item Value Reference Range Interpretation Comments Monocytes (test code = Monocytes) 5.5 2.0-12.0 [facility] DistrictIoegxztZYJIZHAHSX8519-74-55 14:00:00 Test Item Value Reference Range Interpretation Comments Segs (test code = Segs) 57.7 45.0-75.0 [facility] DistrictNbjonutPKFMIQCQOO4946-17-63 14:00:00 Test Item Value Reference Range Interpretation Comments Lymphocytes (test code = Lymphocytes) 33.5 20.0-40.0 [facility] DistrictItwrwahKHDMMNYBSF5481-50-79 14:00:00 Test Item Value Reference Range Interpretation Comments Eosinophils (test code = 2.9 See_Comment [A utomated message] The Eosinophils) system which ge nerated this result tra nsmitted reference range : <=4.0. The reference r caren was not used to int erpret this result as normal/abnormal . [facility] DistrictEbldkrhFBKGYTZKQR7873-49-35 14:00:00 Test Item Value Reference Range Interpretation Comments Segs-Bands # (test code = Segs-Bands #) 4.9 1.5-8.1 [facility] DistrictAdxutqyQOPNHREYPY8341-08-34 14:00:00 Test Item Value Reference Range Interpretation Comments Lymphocytes # (test code = Lymphocytes 2.9 1.0-5.5 #) [facility] DistrictWigmvejKOWDZCXKIY0132-87-30 14:00:00 Test Item Value Reference Range Interpretation Comments Monocytes # (test code 0.5 See_Comment [Aut omated message] The = Monocytes #) system which generated this result tra nsmitted reference range : <=0.8. The reference r caren was not used to int erpret this result as normal/abnormal . [facility] DistrictKhpxgqnAKREGSROUU2733-22-82 14:00:00 Test Item Value Reference Range Interpretation Comments Basophils (test code = 0.4 See_Comment [Aut omated message] The Basophils) system which ge nerated this result tra nsmitted reference range : <=1.0. The reference r caren was not used to int erpret this result as normal/abnormal . [facility] DistrictAproktwPMAQJWWHWP5074-08-21 14:00:00 Test Item Value Reference Range Interpretation Comments Basophils # (test code 0.0 See_Comment [Aut omated message] The = Basophils #) system which generated this result tra nsmitted reference range : <=0.2. The reference r caren was not used to int erpret this result as normal/abnormal . [facility] DistrictVoxvxqqUXYPOSIDYP1872-98-35 14:00:00 Test Item Value Reference Range Interpretation Comments Large Plt (test code = Large Plt) Slight [facility] DistrictQsnccalFDSWATSXMQ0006-15-52 14:00:00 Test Item Value Reference Range Interpretation Comments Hgb (test code = Hgb) 13.3 12.0-16.0 [facility] DistrictUfllunsWXOBAHLDOF7726-68-76 14:00:00 Test Item Value Reference Range Interpretation Comments WBC (test code = WBC) 8.5 3.7-10.4 [facility] DistrictViwcqcyXIVQHBAVTE0415-83-64 14:00:00 Test Item Value Reference Range Interpretation Comments RBC (test code = RBC) 4.72 4.20-5.40 [facility] DistrictFjxhpwfUCUQSKCMUS0306-08-27 14:00:00 Test Item Value Reference Range Interpretation Comments MCHC (test code = MCHC) 32.7 32.0-36.0 [facility] DistrictJrnxlobPDRAPHUJKI6568-32-81 14:00:00 Test Item Value Reference Range Interpretation Comments MCH (test code = MCH) 28.2 pg 27.0-31.0 [facility] DistrictDpdljltIFSQYKPUAM4876-42-21 14:00:00 Test Item Value Reference Range Interpretation Comments RDW (test code = RDW) 15.7 11.5-14.5 [facility] DistrictXivmyliIMGMGQJMTW0717-52-89 14:00:00 Test Item Value Reference Range Interpretation Comments MCV (test code = MCV) 86.5 80.0-98.0 [facility] DistrictZkhosskGVIBXYAJES2081-05-06 14:00:00 Test Item Value Reference Range Interpretation Comments Hct (test code = Hct) 40.8 36.0-48.0 [facility] DistrictTgbtijfWADEGGFVWY5684-56-97 14:00:00 Test Item Value Reference Range Interpretation Comments MPV (test code = MPV) 9.6 7.4-10.4 [facility] DistrictXenxxlnMDKJCKTNCE5045-92-93 14:00:00 Test Item Value Reference Range Interpretation Comments Platelet (test code = Platelet) 268 133-450 [facility] DistrictUadlwewWHUMEEFMCJ0096-99-97 14:00:00 Test Item Value Reference Range Interpretation Comments PT (test code = PT) 13.5 s 12.0-14.7 [facility] DistrictVzrhvyrJRFRUCPAAK3488-39-33 14:00:00 Test Item Value Reference Range Interpretation Comments INR (test code = INR) 1.01 0.85-1.17 [facility] DistrictQrjmjmeCPZHGVGTQE6329-69-91 14:00:00 Test Item Value Reference Range Interpretation Comments PTT (test code = PTT) 33.2 s 22.9-35.8 [facility] DistrictDxpuwtwYALQQUQIIW5615-41-70 14:00:00 Test Item Value Reference Range Interpretation Comments Platelet (test code = Platelet) 276 133-450 [facility] DistrictVlotiisVQZOAUKYMJ9443-70-10 17:44:00 Test Item Value Reference Range Interpretation Comments Platelet (test code = Platelet) 323 133-450 [facility] DistrictCwbhyuwTLYDPWJQNZ1487-68-05 17:44:00 Test Item Value Reference Range Interpretation Comments MCHC (test code = MCHC) 33.2 32.0-36.0 [facility] DistrictGftuvbwWJTXLLOHSV9738-88-32 17:44:00 Test Item Value Reference Range Interpretation Comments MCH (test code = MCH) 28.2 pg 27.0-31.0 [facility] DistrictOxxjtdrZECVJSWFBL2126-58-59 17:44:00 Test Item Value Reference Range Interpretation Comments RDW (test code = RDW) 15.2 11.5-14.5 [facility] DistrictFfobgcrTFDCCKSUGS3816-11-71 17:44:00 Test Item Value Reference Range Interpretation Comments Hgb (test code = Hgb) 12.6 12.0-16.0 [facility] DistrictYfvcmdlOSOJBWWCWP5849-63-04 17:44:00 Test Item Value Reference Range Interpretation Comments Hct (test code = Hct) 38.0 36.0-48.0 [facility] DistrictTkqrszaUGZCJRKHVJ8597-85-20 17:44:00 Test Item Value Reference Range Interpretation Comments MCV (test code = MCV) 85.0 80.0-98.0 [facility] DistrictLdjzmzxYOKERYITAK1868-79-88 17:44:00 Test Item Value Reference Range Interpretation Comments WBC (test code = WBC) 8.8 3.7-10.4 [facility] DistrictTejtitvIFODCVRTGC8961-57-53 17:44:00 Test Item Value Reference Range Interpretation Comments RBC (test code = RBC) 4.47 4.20-5.40 [facility] DistrictOcdyovrSXZDOWSDMU6874-49-18 17:44:00 Test Item Value Reference Range Interpretation Comments Basophils # (test code 0.1 See_Comment [Aut omated message] The = Basophils #) system which generated this result tra nsmitted reference range : <=0.2. The reference r caren was not used to int erpret this result as normal/abnormal . [facility] DistrictJiidjtnNSTWJEPQQZ9222-88-36 17:44:00 Test Item Value Reference Range Interpretation Comments Eosinophils # (test code 0.1 See_Comment [A utomated message] The = Eosinophils #) system whic h generated this result tra nsmitted reference range : <=0.5. The reference r caren was not used to int erpret this result as normal/abnormal . [facility] DistrictQlnitizHHREIUAWAV0130-50-63 17:44:00 Test Item Value Reference Range Interpretation Comments Eosinophils (test code = 1.3 See_Comment [A utomated message] The Eosinophils) system which ge nerated this result tra nsmitted reference range : <=4.0. The reference r caren was not used to int erpret this result as normal/abnormal . [facility] DistrictHvxymvaTFAEPDXWQR7769-40-17 17:44:00 Test Item Value Reference Range Interpretation Comments Monocytes (test code = Monocytes) 6.7 2.0-12.0 [facility] DistrictSnlomdwZWRTIUZLFM6397-58-72 17:44:00 Test Item Value Reference Range Interpretation Comments Lymphocytes # (test code = Lymphocytes 2.9 1.0-5.5 #) [facility] DistrictDcrspwqKHLGHDOJUW1999-97-46 17:44:00 Test Item Value Reference Range Interpretation Comments Monocytes # (test code 0.6 See_Comment [Aut omated message] The = Monocytes #) system which generated this result tra nsmitted reference range : <=0.8. The reference r caren was not used to int erpret this result as normal/abnormal . [facility] DistrictEujgqdrJGDBDEGFUM8622-43-71 17:44:00 Test Item Value Reference Range Interpretation Comments Lymphocytes (test code = Lymphocytes) 33.2 20.0-40.0 [facility] DistrictWnqnngsTXAFZBQYSG9141-74-77 17:44:00 Test Item Value Reference Range Interpretation Comments Segs-Bands # (test code = Segs-Bands #) 5.1 1.5-8.1 [facility] DistrictHhhwsmdZVYICVMJBO1585-20-52 17:44:00 Test Item Value Reference Range Interpretation Comments Basophils (test code = 0.6 See_Comment [Aut omated message] The Basophils) system which ge nerated this result tra nsmitted reference range : <=1.0. The reference r caren was not used to int erpret this result as normal/abnormal . [facility] DistrictKgomsiqJOXZYDTNPP5477-06-53 17:44:00 Test Item Value Reference Range Interpretation Comments Segs (test code = Segs) 58.2 45.0-75.0 [facility]2016-11-21 17:44:00 Test Item Value Reference Range Interpretation Comments eGFR (test code = eGFR) 97 [facility]2016-11-21 17:44:00 Test Item Value Reference Range Interpretation Comments Sodium Lvl (test code = Sodium Lvl) 137 135-145 [facility]2016-11-21 17:44:00 Test Item Value Reference Range Interpretation Comments BUN (test code = BUN) 16 7-22 [facility]2016-11-21 17:44:00 Test Item Value Reference Range Interpretation Comments CO2 (test code = CO2) 27 24-32 [facility]2016-11-21 17:44:00 Test Item Value Reference Range Interpretation Comments Creatinine Lvl (test code = Creatinine 0.60 0.50-1.40 Lvl) [facility]2016-11-21 17:44:00 Test Item Value Reference Range Interpretation Comments Glucose Lvl (test code = Glucose Lvl) 97 70-99 [facility]2016-11-21 17:44:00 Test Item Value Reference Range Interpretation Comments Potassium Lvl (test code = Potassium 4.0 3.5-5.1 Lvl) [facility] [id number] 17:44:00 Test Item Value Reference Range Interpretation Comments Calcium Lvl (test code = Calcium Lvl) 9.0 8.5-10.5 [facility]2016-11-21 17:44:00 Test Item Value Reference Range Interpretation Comments Chloride Lvl (test code = Chloride Lvl) 101 95-109 [facility]2016-11-21 17:44:00 Test Item Value Reference Range Interpretation Comments AGAP (test code = AGAP) 13.0 10.0-20.0 [id number] 17:44:00 Test Item Value Reference Range Interpretation Comments MPV (test code = MPV) 8.6 7.4-10.4 [facility]
--- NOTE | 2021-06-11 00:44 | ER ---
Nurse's Notes [facility] Name: Gregoria Vela Age: 71 yrs Sex: Female : 1950 Arrival Date: 06/10/2021 Time: 18:48 Bed Waiting Private MD: Diagnosis: Presentation: 06/10 19:26 Chief complaint: Patient states: I started feeling short of breath yesterday, and I can vc1 hear myself wheezing. Coronavirus screen: Client denies travel out of the [place] in the last 14 days. congestion, difficulty breathing, shortness of breath, Client presents with at least one sign or symptom that may indicate coronavirus-19. Standard/surgical mask placed on the client. Risk Assessment: Do you want to hurt yourself or someone else? Patient reports no desire to harm self or others. 19:26 Method Of Arrival: Wheelchair vc1 19:26 Acuity: ERIC 3 vc1 Triage Assessment: 19:28 General: Appears in no apparent distress. Behavior is calm. Pain: Denies pain. vc1 Respiratory: Reports shortness of breath at rest on exertion Onset: The symptoms/episode began/occurred yesterday, the patient has mild shortness of breath. Vital Signs: 19:26 BP 155 / 89; Pulse 93; Resp 36; Temp 97.5; Pulse Ox 98% on R/A; Weight 81.19 kg; Height vc1 5 ft. 1 in. (154.94 cm); Pain 0/10; 19:26 Body Mass Index 33.82 (81.19 kg, 154.94 cm) vc1 ED Course: 18:48 Patient arrived in ED. mr 19:28 Triage completed. vc1 06/11 00:39 Pio Ramires MD is Attending Physician. pkregine 00:41 Maggy Caputo, GELACIO is Primary Nurse. kd3 00:43 Patient's name was called from ER lobby. No response. Unable to locate patient. Will vc1 disposition as left without being seen by a provider. Administered Medications: No medications were administered Outcome: 00:44 Patient left the ED. vc1 Signatures: Pio Ramires MD MD pkregine Flora Hernández mr Maggy Caputo, GELACIO RN kd3 June Rivers RN RN vc1
[2021-06-11 01:09] VITALS: BP 155/89; TEMP 97.5; O2SAT 98
== END 2021-06-11 00:44 | disposition left against medical advice (07) ==
LOC: ER 18:46
DX: R06.02 Shortness of breath (principal); Z53.21 Procedure and treatment not carried out due to patient leaving prior to being seen by health care provider
CPT/HCPCS: 99281

== ENCOUNTER 2021-06-14 13:15 | Inpatient (IN) | payer BC, OTHER ==
--- OUTSIDE RECORDS SUMMARY | 2021-06-14 13:18 | XMS REPORT | Clinical Summary ---
:1950 Author Organization [facility] MD Ricci [facility] Address [address] [place] [address] Care Team Providers Name Role Phone Elpidio [...] Fabrizio Carpio MD S ARS-CoV-2 vaccination after 06/14/2020 Surgical History Surgery Date Site/Laterality Comments APPENDECTOMY [...] Vaccination (1) 1964 Results Not on fileafter 06/14/2020 Insurance Payer Benefit Plan Subscriber ID Effective Phone Address Typ e / Group Dates MEDICARE MEDICARE PART [id number] 2017-Prese [phone] [employer] Medicare A nt 28 [employer] [address] [place] [id number] [employer] [place] PPO [id number] 2014-Prese [address] [place] 902476 [place] [address] Gregoria Vela Personal/Family Self [address] (Home) [place] [id number] Gregoria Vela Personal/Family Self [address] (Home) [place] [phone] Care Teams Technical Services Coordinator Relationship Specialty Start Date End Date Elpidio Burr PCP - External Referring 06/15/16 Elpidio Burr PCP - External Follow Up 06/15/16 Devon Rivers PCP - External Follow Up Cardiology 06/15/16 MD Sharma [address] [phone] Yanick Shoemaker PCP - External Follow Up General Surgery 06/15/16 MD Sherrie Trivedi [address] [place] [address] Lito Kramer, PCP - General Lymphoma and Myeloma 08/14/20 [facility] [place], [place] [id number]
--- OUTSIDE RECORDS SUMMARY | 2021-06-14 13:23 | XMS REPORT | Continuity of Care Document ---
:1950 Author Organization [facility] t Address [address] [place] [address] Care Team Providers Name Role Phone Pcp, Does Not Have A Primary Care Physician JESSICA Attending Clinician Unavailable PABLO Attending Clinician Unavailable MARTÍNEZ Attending Clinician Unavailable VAN MANTILLA Attending Clinician Unavailable A_Byannette Attending Clinician Unavailable Nurse, Pob Immunization Attending Clinician Unavailable Gurinder Bourne DO Attending Clinician Jessica QUACH Attending Clinician BRENTON Attending Clinician Unavailable SANTOS, A Attending Clinician Unavailable SPRINGER Attending Clinician Unavailable LAB47 Attending Clinician Unavailable ANDRADE Attending Clinician Unavailable LAB90 Attending Clinician Unavailable Van Mantilla MD Attending Clinician Brennon BRIZUELA Attending Clinician Unavailable Only, Db Test Attending Clinician Unavailable Martínze QUACH Attending Clinician Shirin QUACH Attending Clinician BECKY GOMEZ Attending Clinician Unavailable IHDE_G Attending Clinician Unavailable A_Byrd Admitting Clinician Unavailable IHDE_G Admitting Clinician Unavailable Payers Payer Name Policy Type Policy Effective Date Expiration Date Sour ce Number [facility] [id number] 2019 8 00:00:00 [facility] [id number] 2019 8 00:00:00 [place] [id number] 2014 (PPO) 8 00:00:00 MEDICAREMEDICARE PART [id number] 2017 MD Cope [id number] 2016-P 00:00:00 [phone] [facility] SOL[address]SPO [address] [address]Medicare BLUE CROSS BLUE [id number] 2014 MD Ricci roxane [employer] PPO 8 00:00:00 [id number] 5-[id number] [id number] Problems Condition Condition Condition Status Onset Resolution [...] 00 artery disease) Active 03/26/2021 04/16/2021 [facility] Herpes Herpes Problem Active [place] simplex Simplex 7-29 da type 1 Type 1 00:00: Medical infection Infection 00 Grou p Iron Iron Problem Active [place] deficiency Deficiency 6-08 da anemia Anemia 00:00: Medical 00 Group Angina Angina Problem Active [place] pectoris Pectoris 6-08 da 00:00: Medical Group Splits in Splits in Problem Active [...] C83.3 00:00: Haris 00 Active 05/31/2016 [facility] [place] MESENTERIC Diagnosis Active 2015-062016-05-02 Memoria LYMPH 06-25 07:59:00 l NODE-I88.0 00:00: Gurwinder n MESENTERIC 00 LYMPH NODE-I88.0 Active 04/25/2016 [place] Backache Problem Active 2016-06-03 Mem oria (finding) 02:23:46 l Backache Gurwinder n (finding) Active Problem 06/03/2016 [place] Gastroesop Problem Active 2016-06-03 M damienricheyenne hageal 02:23:46 l reflux [place] disease Gastroesop (disorder) hageal reflux disease (disorder) Active Problem 06/03/2016 [facility] [place] Neck pain Problem Active 2016-06-03 Me moria (finding) 02:23:46 l Neck Haris pain (finding) Active Problem 06/03/2016 [facility] [place] SARS-CoV-2 Diagnosis Active 2021-04-19 Memoria vaccinatio 16:44:40 l n [place] SARS-CoV-2 vaccinatio n Active 04/19/2021 MD [facility] Encounter Diagnosis Active 2021-03-26 Memoria for 17:57:45 l immunizati Gurwinder n on - Encounter Unchanged for immunizati on - Unchanged Active 1 [facility] Chronic Diagnosis Active 2021-04-16 Me moria lumbosacra 17:50:29 l l pain Chronic [place] lumbosacra l pain Active 1 [facility] Clinic Lumbar Diagnosis Active 2021-04-16 Mem oria radiculiti 17:50:29 l s Lumbar [place] radiculiti s Active 04/16/2021 [facility] Clinic Degenerati Diagnosis Active 2021-04-16 Memoria ve disc 17:50:29 l disease, Haris lumbar Degenerati ve disc disease, lumbar Active 1 [facility] Anxiety Problem Active 2016-06-03 Kobi thania (finding) 02:23:46 l Anxiety Har[place] (finding) Active Problem 06/03/2016 [place] Recurrent Recurrent Problem Active [place] herpes [...] Active [place] maxillary Maxillary da sinusitis Sinusitis [facility] Has a sore Has [...] [place] of of da mesentery Mesentery [facility] Gastrointe Gastrointe Problem Active M atagor [...] Active Rash 2020-06 Memoria 0-22 l 00:00: [place] 00 Acetamin Propensi Active Rash Conchis ophen ty to 1-11 Seybold Injectio adverse 00:00: n reaction 00 s Acetamin Acetamin Active Low Rash Memori a ophen ophen 1-11 l Injectio Injectio 00:00: Gurwinder n n n 00 Tylenol Allergy Active Rash [place] to da substanc Medical e Group NO KNOWN Drug Active Univers ALLERGIE Class ity of [facility] Family History Family Member Diagnosis Comments Start Date Stop Date Source Natural mother -Thoracic or Lung MD Cope Natural mother Coronary heart disease MD Cope (CHD) Natural mother Hypertension MD Ricci son Natural mother -Gynecology (Ovary, Alexa Cope [...] Comments Source Exposure to Not sure Conchis hernandez SARS-CoV-2 (event) Alcohol intake 2019-10-04 2019-10-04 Current MD Cristobal onofre 00:00:00 00:00:00 non-drinker of alcohol (finding) Cigarettes smoked 2016-06-15 2016-06-15 MD Rojas castellano current (pack per 00:00:00 00:00:00 day) - Reported Cigarette 2016-06-15 2016-06-15 MD Cope pack-years 00:00:00 00:00:00 Tobacco use and 2016-06-15 2016-06-15 Smokeless tobacco MD Cope exposure 00:00:00 00:00:00 non-user Social History 2016-04-25 2016-04-25 [facility] 18:11:00 18:11:00 History of tobacco 1968-06-05 1978-06-05 Current smoker MD Cope use 00:00:00 00:00:00 [birth year] MD Page on 00:00:00 00:00:00 Smoking Status Start Date Stop Date Source Unknown if ever smoked [facility] Social History [facility] Social History 2016-06-15 00:00:00 2016-06-15 00:00:00 [facility] Medications Ordered Filled Start Stop Current Ordering [...] daily Tablet 29 hydrOXYzine 2020-06 Yes 50mg [id number] Take 50 mg Conchis Pamoate 50 2-21 [id number] by mouth 3 Seybold MG oral 10:09: 3D times Capsule 29 daily as needed for itching Carisoprodo 2020-06 Yes 350mg Q.25D Take 350 Conchis l 350 MG 2-21 mg by Seybold oral Tablet 10:09: mouth 4 29 times daily as needed for muscle spasms Tramadol 2020-06 Yes 50mg Q6H Take 50 mg Tanner sey HCl 50 MG 2-21 by mouth Seybol d oral Tablet 10:09: every 6 29 hours as needed for pain Acyclovir 2020-06 Yes 200mg Take 200 Tanner sey 200 MG/5ML 2-21 mg by Seybold oral 10:09: mouth 5 Suspension 29 times daily Bimatoprost 2020-06 Yes 1[drp] 1 drop Ke lsey (Lumigan) 2-21 nightly Seybold 0.01 % 10:09: ophthalmic 29 Solution cycloSPORIN 2020-06 Yes Apply to Dave lsey E (RESTASIS 2-21 eye Seybold OP) 10:09: 29 Fluocin-Hyd 2020-06 Yes Apply 1 Tanner sey roquinone-T 2-21 applicatio Se ybold retinoin 10:09: [...] Seybo ld Tablet 10:09: daily 29 Iron-Vitami 2021-1 Yes Take by Tanner eagle n C (Iron 2-21 mouth Seybold 100/C) 10:09: 100-250 MG 29 oral Tablet ESTRADIOL 2020-06 Yes Take by Domonique y OR 2-21 mouth Seybold 10:09: Patient 29 states taking one daily Gabapentin 2020-06 Yes [id number] 300mg Take 1 Conchis 300 MG oral 2-21 capsule Seybo ld Capsule 00:00: (300 mg 00 total) by mouth at bedtime Diclofenac 2020-06 Yes [id number] 75mg Take 1 Conchis Sodium 75 2-21 tablet (75 Seyb old MG oral 00:00: mg total) Tablet 00 by mouth 2 Delayed times Response daily acyclovir 2020-06 Yes Take 2 Memori a (ZOVIRAX) 1-15 capsules l 200 mg 16:44: by mouth Haris capsule 40 as needed. acyclovir 2020-06 Yes Apply 1 Memor ia (ZOVIRAX) 1-15 applicatio l 5% cream 16:44: n Haris 40 topically to affected area(s) as needed. fenofibrate 2020-06 Yes Take 1 Kobi thania nanocrystal 1-15 tablet by l lized 16:44: mouth [place] (TRICOR) 40 daily. 145 mg tablet FLUoxetine [...] 1-15 tablet by l thiazide 16:44: mouth [place] (PRINZIDE,Z 40 twice ESTORETIC) daily. 20-12.5 mg [...] by l 350 mg 16:44: mouth as Haris tablet 40 needed. calcium 2020-06 Yes Chew 2 Memoria carbonate 1-15 tablets as l (TUMS) 1000 16:44: needed. Her walters mg (400 mg 40 elemental calcium) chewable tablet HYDROXYZINE 2020-06 Yes Take 100 Me moria PAMOATE 1-15 mg by l ORAL 16:44: mouth [place] 40 daily. Patient states that she takes this medication in the middle of the day. aspirin 81 2020-06 Yes Take 81 mg M emoria mg EC 1-15 by mouth l tablet 16:44: daily. [place] 40 amLODIPine 2020-06 Yes Take 5 mg [...] mouth l CR 30 MG 17:50: daily Haris oral TABLET 29 SR 24 HR Fenofibrate 2020-06 Yes Take 145 Me moria 145 MG oral 1-12 mg by l Tablet 17:50: mouth [place] 29 daily hydroCHLORO 2020-06 Yes Take 50 mg Memoria thiazide 50 1-12 by mouth l MG oral 17:50: daily [place] Tablet 29 hydrOXYzine 2020-06 Yes Take 50 mg Memoria Pamoate 50 1-12 by mouth 3 l MG oral 17:50: times [place] Capsule 29 daily as needed for itching [...] mg by l oral 17:50: mouth 5 [place] Suspension 29 times daily Bimatoprost 2020-06 Yes 1 drop Kobi thania (Lumigan) -12 nightly l 0.01 % 17:50: Haris ophthalmic 29 Solution cycloSPORIN 2020-06 Yes Apply to Me jyotia E (RESTASIS 12 eye l OP) 17:50: [place] 29 Fluocin-Hyd 2020-06 Yes Apply 1 Mem oria roquinone-T 12 applicatio l retinoin 17:50: n Haris 0.01-4-0.05 29 topically % apply nightly externally Cream Aspirin 2020-06 Yes Take 81 mg Kobi thania (Aspirin 12 by mouth l 81) 81 MG 17:50: daily Haris oral 29 Chewable Tablet Atorvastati 2020-06 Yes [...] oral Tablet ESTRADIOL 2020-06 Yes Take by Sakinaor ia OR 1-12 mouth l 17:50: Patient Haris 29 states taking one daily ESTRADIOL 2020-06 Yes Take by Kelse y OR 1-12 mouth Seybold 08:25: Patient 08 states taking one daily Estrogens 2020-06- No 1.25mg Take 1.25 Conchis Conjugated 1-12 11-12 mg by Seybold (Premarin) 08:25: 00:00 mouth 1.25 MG 07 :00 daily oral Tablet Patient states taking one daily Icosapent 2020-06 Yes 1{tbl} Take 1 Tabitha ey Ethyl 1-12 tablet by Seybold (Vascepa) 1 08:16: mouth 2 g oral 17 times Capsule daily LISINOPRIL- 2020-06 Yes 1{tbl} Take 1 Ke saloni HCTZ 1-12 tablet by Seybold 20-12.5 MG [...] daily Tablet 17 hydrOXYzine 2020-06 Yes 50mg Q.[id number] Take 50 mg Conchis Pamoate 50 1-12 [id number] by mouth 3 Seybold MG oral 08:16: [...] Bimatoprost 2020-06 Yes 1[drp] 1 drop Ke dakotahey (Lumigan) 1-12 nightly Seybold 0.01 % 08:16: ophthalmic 17 Solution cycloSPORIN 2020-06 Yes Apply to Dave guallpa E (RESTASIS 1-12 eye Seybold OP) 08:16: 17 Fluocin-Hyd 2020-06 Yes Apply 1 Tanner sey roquinone-T -12 applicatio Se ybold retinoin 08:16: n 0.01-4-0.05 [...] daily Tablet 42 hydrOXYzine 2020-06 Yes 50mg [id number] Take 50 mg Con[place]is Pamoate 50 0-22 [id number] by mouth 3 Seybold MG oral 09:45: [...] times daily (before meals) Gemfibrozil 2020-06 Yes [id number] 600mg Take 1 Conchis 600 MG oral 0-22 tablet Seybol d Tablet 00:00: (600 mg 00 total) by mouth 2 times daily (before meals) Gemfibrozil 2020-06 Yes [id number] 600mg Take 1 Con[place]is 600 MG oral 0-22 tablet Seybol d Tablet 00:00: (600 mg 00 total) by mouth 2 times daily (before meals) Gemfibrozil 2020-06 Yes [id number] 600mg Take 1 Con[place] 600 MG oral 0-22 tablet Seybol d Tablet 00:00: (600 mg 00 total) by mouth 2 times daily (before meals) No known No [facility] medications 9-20 ity of 19:32: [address] No known No Univers medications 920 ity of 19:32: [address] No known No Univers medications 9 ity of 19:32: [address] amLODIPine 2019-0 Yes 5mg Take 5 [...] by mouth l 40 mg 00:00: at [place] tablet 00 bedtime. atorvastati Yes 40mg Take 40 mg MD n (LIPITOR) 3-03 by mouth Rojas rso 40 mg 00:00: at n tablet 00 bedtime. fluocinolon Yes Patient Mem oria e 0.01 % 8-26 uses this l oil 00:00: 2-4 times [place] 00 a day fluocinolon Yes Patient MD [...] Weight 67.864, kg, Start date: 05/02/16 14:33:00 STORE KEEPER, Stop date: 05/02/16 14:33:00 STORE KEEPER glycopyrrol 2015-06 No Route: IV, Memoria ate (ANES) 07-02 Drug form: l 18:36: INJ, ONCE, Stop date: 05/02/16 12:36:00 STORE KEEPER neostigmine 2015-06 No Route: IV, Memoria (ANES) 07-02 Drug form: l 18:36: INJ, ONCE, Stop date: 05/02/16 12:36:00 STORE KEEPER Meperidine 2015-06 No Notes: Memor ia 07-02 [...] Pain Score 1-3, Start date: 05/02/16 12:29:00 STORE KEEPER, Duration: 1 doses or times, Stop date: [...] 17:54: INJ, ONCE, Stop date: 05/02/16 11:54:00 STORE KEEPER ePHEDrine 2015-06 No Route: IV, Me moria (ANES) 07-02 Drug form: l 17:14: INJ, ONCE, [place] 00 Stop date: 05/02/16 11:14:00 STORE KEEPER metoclopram 2015-06 No Route: IV, Memoria simeon (ANES) 07-02 Drug form: l 17:04: INJ, ONCE, [place] 00 Stop date: 05/02/16 11:04:00 STORE KEEPER famotidine 2015-06 No Route: IV, M emoria (ANES) 07-02 Drug form: l 17:04: INJ, ONCE, [place] 00 Stop date: 05/02/16 11:04:00 STORE KEEPER rocuronium 2015-06 No Route: IV, M emoria (ANES) 07-02 Drug form: l 17:04: INJ, ONCE, Haris 00 Stop date: 05/02/16 11:04:00 STORE KEEPER acetaminoph 2015-06 No Route: IV, Memoria en (ANES) 07-02 Drug form: l 17:04: INJ, ONCE, [place] 00 Stop date: 05/02/16 11:04:00 STORE KEEPER propofol 2015-06 No Route: IV, Mem oria (ANES) 07-02 Drug form: l 16:59: INJ, ONCE, Stop date: 05/02/16 10:59:00 STORE KEEPER succinylcho 2015-06 No Route: IV, Memoria line (ANES) 07-02 Drug form: l 16:59: INJ, ONCE, Haris 00 Stop date: 05/02/16 10:59:00 STORE KEEPER midazolam 2015-06 No Route: IV, Me moria (ANES) 07-02 Drug form: l 16:59: SOLN, [place] 00 ONCE, Stop date: 05/02/16 10:59:00 STORE KEEPER fentaNYL 2015-06 No Route: IV, Mem oria (ANES) 07-02 Drug form: l 16:59: INJ, ONCE, Haris 00 Stop date: 05/02/16 10:59:00 STORE KEEPER lidocaine 2015-06 No Route: IV, Me moria (ANES) 07-02 Drug form: l 16:59: INJ, ONCE, [place] 00 Stop date: 05/02/16 10:59:00 STORE KEEPER cefOXitin 2015-06 No Route: IV, moria (ANES) 07-02 Drug form: l 16:54: INJ, ONCE, [place] 00 Stop date: 05/02/16 10:54:00 STORE KEEPER LR 1000 mL 2015-06 No Route: IV, M emoria INJ (ANES) 07-02 Total l 16:19: Volume: [place] 00 1,000, Start date: 05/02/16 10:19:00 STORE KEEPER, Stop date: 05/02/16 11:19:00 STORE KEEPER Neurontin 2015-06 No Notes: Memori a 07-02 (Same as: l 15:30: Neurontin) [place] Calcium 2015-06 No 1,000 mL, Memor ia Chloride 07-02 Rate: 25 l 0.0014 13:59: ml/hr, Haris MEQ/ML / 00 Infuse Potassium over: 40 Chloride hr, Route: 0.004 IV, Dosing MEQ/ML / Weight Sodium 67.727 kg, Chloride Total 0.103 Volume: MEQ/ML / 1,000, Sodium Start Lactate date: 0.028 05/02/16 MEQ/ML 7:59:00 Injectable STORE KEEPER, Solution Duration: 30 day, Stop date: 06/01/16 7:58:00 STORE KEEPER Lovenox 2015-06 No Notes: Memoria 07-02 (Same as: l 12:00: Lovenox) [place] CeleBREX 2015-06 No Notes: Memoria 07-02 NSAID. l 12:00: Please [place] 00 check indication . Not for seizure. [...] microgram l tablet 17:53: = 2 tab, [place] 00 PO, Daily, # 30 tab, 0 Refill(s) lansoprazol 2015-06 Yes 30 mg = 1 M emoria e 30 MG 06-25 cap, PO, l Enteric 17:52: Daily, 0 Gurwinder n Coated 00 Refill(s) Capsule [Prevacid] Aspirin 325 2015-06 Yes 325 mg = 1 Memoria MG Oral -21 tab, PO, l Tablet 17:52: BID, 0 [place] 00 Refill(s) latanoprost 2015-06 Yes 1 drp, Kobi thania 0.05 MG/ML 06-25 QPM, 0 l Ophthalmic 17:51: Refill(s) He rmann Solution 00 [Xalatan] Niacin SR 2015-06 Yes 500 mg = 1 Me moria 500 mg oral 06-25 cap, PO, l capsule, 17:51: Bedtime, 0 Her walters extended 00 Refill(s) release Fenofibrate 2015-06 Yes 145 mg = 1 Memoria 145 MG Oral - tab, PO, l Tablet 17:51: Daily, 0 [place] 00 Refill(s) acyclovir 2015-06 Yes 200 mg = 1 Me moria 200 mg oral - cap, PO, l capsule 17:50: TID, 0 [place] 00 Refill(s) carisoprodo 2015-06 Yes 350 mg = 1 Memoria l 350 mg - tab, PO, l oral tablet 17:49: QID, 0 Herm gricel 00 Refill(s) Estrogens, 2015-06 Yes 1.25 mg = Me moria Conjugated 21 1 tab, PO, l (LONG-TERM) 1.25 17:48: Daily, 0 Her walters MG Oral 00 Refill(s) Tablet [Premarin] FLUoxetine 2015-06 Yes 20 mg = 1 Me moria 20 mg oral -21 tab, PO, l tablet 17:47: Daily, 0 [place] 00 Refill(s) isosorbide 2015-06 Yes 30 mg = 1 Me moria dinitrate -21 tab, PO, l 30 mg oral 17:46: Daily, 0 Her walters tablet 00 Refill(s) Hydrochloro 2015-06 Yes 1 tab, PO, Memoria thiazide 06-25 Daily, 0 l 12.5 MG / 17:46: Refill(s) Her walters Lisinopril 00 20 MG Oral Tablet diethylprop 2015-06 Yes TK 1 T PO M emoria ion 25 mg 0-20 TID BEFORE l tab 00:00: MEALS [place] 00 diethylprop 2015-06 Yes TK 1 T [...] EATING EATING BEFORE BREAKFAST BREAKFAST EATING BREAKFAST diclofenac diclofenac No diclofenac [place] sodium 75 sodium 75 sodium 75 da mg mg mg Medical tablet,satish tablet,satish tablet,del Group yed release yed release ayed release estradiol 2 estradiol 2 No estradiol [place] mg tablet mg tablet 2 mg da TAKE 1 TAKE 1 tablet Medical TABLET BY TABLET BY TAKE 1 Vick up MOUTH EVERY MOUTH EVERY TABLET BY DAY DAY MOUTH EVERY DAY famotidine famotidine No famotidine [place] 40 mg [...] AREA TWICE AREA TWICE DAILY DAILY DAILY gabapentin gabapentin No gabapentin [place] 300 mg 300 mg 300 mg da capsule capsule capsule Medica l Group gemfibrozil gemfibrozil No gemfibrozi [place] 600 mg [...] HOURS PRN HOURS PRN WF WF WF icosapent icosapent No icosapent [place] ethyl 1 ethyl 1 ethyl 1 da gram gram gram Medical capsule capsule capsule Group TAKE 2 TAKE 2 TAKE 2 CAPSULES BY CAPSULES BY CAPSULES MOUTH TWICE MOUTH TWICE BY MOUTH DAILY DAILY TWICE DAILY Integra Integra No Integra [place] Plus [...] MOUTH EVERY MOUTH DAY DAY EVERY DAY latanoprost latanoprost No latanopros [place] 0.005 % eye 0.005 % eye t 0.005 % da drops drops eye drops Medical Group lisinopril lisinopril No lisinopril [place] 20 20 [...] EYES AT BEDTIME AT BEDTIME AT BEDTIME metoclopram metoclopram No metoclopra [place] [...] MORNING THE MORNING MORNING IN THE MORNING ondansetron ondansetron No ondansetro [place] HCl 4 mg HCl 4 mg n HCl 4 mg d a tablet TAKE tablet TAKE tablet Medical 1 TABLET BY 1 TABLET BY TAKE 1 Group MOUTH EVERY MOUTH EVERY TABLET BY 8 HOURS 8 HOURS MOUTH NEEDED NEEDED EVERY 8 HOURS NEEDED prasugrel prasugrel No prasugrel [place] 10 mg [...] ANKLE TWICE DAILY TWICE DAILY TWICE DAILY Immunizations Ordered Immunization Filled Immunization Date Status Commen ts Source Name Name SARS-COV-2 COVID-19 2021-06-04 [facility] MODERNA BOOSTER 00[facility]00:00 [facility] VACCINE Branch Influenza Virus 2021-03-26 Completed Conchis hiltonold Vaccine, 00:00:00 Quadrivalent, High Dose, Age 65 And Up Influenza Virus 2021-03-26 Completed Conchis Ibarra ybold Vaccine, 00:00:00 Quadrivalent, High Dose, Age 65 And Up Influenza Virus 2021-03-26 Completed Conchis Ibarra ybold Vaccine, 00:00:00 Quadrivalent, High Dose, Age 65 And Up Influenza Virus 2021-03-26 Completed [facility] Vaccine, 00:00:00 Quadrivalent, High Dose, Age 65 And Up Covid-19 Vaccine 2020-08-05 Completed Conchis alston (Moderna), Mrna-lnp, 00:00:00 Mio Protein, Pf, 100 Mcg/0.5ml,IM Covid-19 Vaccine 2020-08-05 Completed Conchis Burleson eybold (Moderna), Mrna-lnp, 00:00:00 Mio Protein, Pf, 100 Mcg/0.5ml,IM Covid-19 Vaccine 2020-08-05 Completed Conchis paizbold (Moderna), Mrna-lnp, 00:00:00 Mio Protein, Pf, 100 Mcg/0.5ml,IM Covid-19 Vaccine 2020-08-05 Completed Paula Carballo (Moderna), Mrna-lnp, 00:00:00 Mio Protein, Pf, 100 Mcg/0.5ml,IM Covid-19 Vaccine 2020-07-08 Completed Conchis alston (Moderna), Mrna-lnp, 00:00:00 Mio Protein, Pf, 100 Mcg/0.5ml,IM Covid-19 Vaccine 2020-07-08 Completed Conchis paizbold (Moderna), Mrna-lnp, 00:00:00 Mio Protein, Pf, 100 Mcg/0.5ml,IM Covid-19 Vaccine 2020-07-08 Completed Conchis paizbold (Moderna), Mrna-lnp, 00:00:00 Mio Protein, Pf, 100 Mcg/0.5ml,IM Covid-19 Vaccine 2020-07-08 Completed Paula Carballo (Moderna), Mrna-lnp, 00:00:00 Mio Protein, Pf, 100 Mcg/0.5ml,IM Tdap Tdap 2015-10-02 Completed [facility] 15:44:00 [facility] Group influenza, high dose influenza, high dose 2014-04-16 Completed [facility] seasonal seasonal 00:00:00 Medical Group pneumococcal pneumococcal 2013-04-02 Completed [facility] polysaccharide PPV23 polysaccharide PPV23 18:27:10 Medical Group influenza, seasonal, influenza, seasonal, 2013-04-02 Completed [facility] injectable injectable 18:27:10 Medical Group Vital Signs Vital Name Observation Time Observation Value Comments Source BP Diastolic 2021-06-08 00:00:00 76 mm[Hg] [facility] Height 2021-06-08 00:00:00 61 [in_i] [facility] BMI (Body Mass 2021-06-08 00:00:00 34.6 kg/m2 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) Group BP Systolic 2021-06-08 00:00:00 153 mm[Hg] [facility] Body Weight 2021-06-08 00:00:00 2926.4 [oz_av] [facility] Body height 2021-05-25 16:13:00 154.9 cm Conchis S eybold Body weight 2021-05-25 16:13:00 78.472 kg Conchis S eybold BMI 2021-05-25 16:13:00 32.69 kg/m2 Conchis S eybold Systolic blood 2021-04-16 14:18:00 132 mm[Hg] Conchis Seybold pressure Diastolic blood 2021-04-16 14:18:00 56 mm[Hg] Kelse y Seybold pressure Heart rate 2021-04-16 14:18:00 84 /min Conchis S eybold Body height 2021-04-16 14:18:00 154.9 cm Conchis S eybold Body weight 2021-04-16 14:18:00 80.287 kg Conchis S eybold BMI 2021-04-16 14:18:00 33.44 kg/m2 Conchis S eybold Systolic blood 2021-04-16 14:18:00 132 mm[Hg] Conchis Seybold pressure Diastolic blood 2021-04-16 14:18:00 56 mm[Hg] Kelse y Seybold pressure Heart rate 2021-04-16 14:18:00 84 /min Conchis S eybold Body height 2021-04-16 14:18:00 154.9 cm Conchis S eybold Body weight 2021-04-16 14:18:00 80.287 kg Conchis S eybold BMI 2021-04-16 14:18:00 33.44 kg/m2 Conchis S eybold Systolic blood 2021-03-26 [...] (Body Mass 2021-02-18 00:00:00 33.6 kg/m2 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) Group Body Weight 2021-02-18 00:00:00 2848 [oz_av] [facility] BP Diastolic 2020-11-10 00:00:00 67 mm[Hg] [facility] Height 2020-11-10 00:00:00 61 [in_i] [facility] BMI (Body Mass 2020-11-10 00:00:00 34.5 kg/m2 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) Group BP Systolic 2020-11-10 00:00:00 145 mm[Hg] [facility] Body Weight 2020-11-10 00:00:00 2921.6 [oz_av] [facility] Height 2020-08-19 00:00:00 61 [in_i] [facility] BMI (Body Mass 2020-08-19 00:00:00 34.8 kg/m2 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) Group Body Weight 2020-08-19 00:00:00 2944 [oz_av] [facility] Height 2020-02-20 00:00:00 61 [in_i] [facility] BMI (Body Mass 2020-02-20 00:00:00 34.8 kg/m2 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) Group Body Weight 2020-02-20 00:00:00 2944 [oz_av] [facility] Height 2019-12-11 00:00:00 61 [in_i] [facility] BMI (Body Mass 2019-12-11 00:00:00 34.8 kg/m2 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) Group Body Weight 2019-12-11 00:00:00 2944 [oz_av] [facility] BP Diastolic 2019-07-18 00:00:00 72 mm[Hg] [facility] Height 2019-07-18 00:00:00 61 [in_i] [facility] BMI (Body Mass 2019-07-18 00:00:00 34.8 kg/m2 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) Group BP Systolic 2019-07-18 00:00:00 138 mm[Hg] [facility] Body Weight 2019-07-18 00:00:00 184 [lb_av] [facility] BP Diastolic 2019-06-11 00:00:00 72 mm[Hg] [facility] Height 2019-06-11 00:00:00 61 [in_i] [facility] BMI (Body Mass 2019-06-11 00:00:00 34.4 kg/m2 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) Group BP Systolic 2019-06-11 00:00:00 138 mm[Hg] [facility] Body Weight 2019-06-11 00:00:00 182 [lb_av] [facility] BP Diastolic 2019-05-22 00:00:00 70 mm[Hg] [facility] Height 2019-05-22 00:00:00 61 [in_i] [facility] BMI (Body Mass 2019-05-22 00:00:00 34.4 kg/m2 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) Group BP Systolic 2019-05-22 00:00:00 141 mm[Hg] [facility] Body Weight 2019-05-22 00:00:00 2912 [oz_av] [facility] BP Diastolic 2019-05-07 00:00:00 71 mm[Hg] [facility] Height 2019-05-07 00:00:00 61 [in_i] [facility] BMI (Body Mass 2019-05-07 00:00:00 34.4 kg/m2 [employer]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) Group BP Systolic 2019-05-07 00:00:00 141 mm[Hg] [facility] Body Weight 2019-05-07 00:00:00 2912 [oz_av] [facility] BP Diastolic 2019-03-26 00:00:00 69 mm[Hg] [facility] Height 2019-03-26 00:00:00 61 [in_i] [facility] BMI (Body Mass 2019-03-26 00:00:00 33.6 kg/[facility]2 [facility] BP Systolic 2019-03-26 00:00:00 138 mm[Hg] [facility] Body Weight 2019-03-26 00:00:00 2848 [oz_av] [facility] BP Diastolic 2018-12-28 00:00:00 74 mm[Hg] [facility] Height 2018-12-28 00:00:00 61 [in_i] [facility] BMI (Body Mass 2018-12-28 00:00:00 33.8 kg/m2 [facility] BP Systolic 2018-12-28 00:00:00 135 mm[Hg] [facility] Body Weight 2018-12-28 00:00:00 2864 [oz_av] [facility] BP Diastolic 2018-05-31 00:00:00 71 mm[Hg] [facility] Height 2018-05-31 00:00:00 61 [in_i] [facility] BMI (Body Mass 2018-05-31 00:00:00 35 kg/m2 [facility] BP Systolic 2018-05-31 00:00:00 133 mm[Hg] [facility] Body Weight 2018-05-31 00:00:00 2960 [oz_av] [facility] Systolic (mm Hg) 2021-04-16 14:18:00 Okbi rial [place] Diastolic (mm Hg) 2021-04-16 14:18:00 [facility] [place] Heart Rate 2021-04-16 14:18:00 [facility] [place] Height 2021-04-16 14:18:00 154.9 cm [facility] Weight 2021-04-16 14:18:00 [facility] Systolic (mm Hg) 2021-03-26 14:34:00 Kobi rial [place] Diastolic (mm Hg) 2021-03-26 14:34:00 [facility] [place] Heart Rate 2021-03-26 14:34:00 [facility] [place] Temperature Oral (F) 2021-03-26 14:34:00 36.61 Leni [facility] [place] Respitory Rate 2021-03-26 14:34:00 [facility] [place] Height 2021-03-26 14:34:00 154.9 cm [facility] Weight 2021-03-26 14:34:00 [facility] Systolic (mm Hg) 2016-05-31 14:00:00 Kobi [facility] [place] Diastolic (mm Hg) 2016-05-31 14:00:00 [facility] [place] Respitory Rate 2016-05-31 14:00:00 [facility] [place] Temperature Oral (F) 2016-05-31 14:00:00 98.4 F [facility] [place] Weight 2016-05-31 13:20:00 [facility] [place] BMI Calculated 2016-05-31 13:20:00 [facility] [place] Height 2016-05-31 13:20:00 154.94 cm [facility] Respitory Rate 2016-05-02 20:45:00 [facility] [place] Systolic (mm Hg) 2016-05-02 20:45:00 Kobi rial [place] Diastolic (mm Hg) 2016-05-02 20:45:00 [facility] [place] Respitory Rate 2016-05-02 20:15:00 [facility] [place] Systolic (mm Hg) 2016-05-02 20:15:00 Kobi rial [place] Diastolic (mm Hg) 2016-05-02 20:15:00 [facility] [place] Systolic (mm Hg) 2016-05-02 19:45:00 Kobi rial [place] Diastolic (mm Hg) 2016-05-02 19:45:00 [facility] [place] Respitory Rate 2016-05-02 19:45:00 [facility] [place] Heart Rate 2016-05-02 14:45:00 [facility] [place] Weight 2016-05-02 14:23:00 [facility] [place] BMI Calculated 2016-05-02 14:23:00 [facility] [place] Height 2016-04-25 17:38:00 154.94 cm [facility] Procedures Procedure Date / Time Performing Source Performed Clinician SARS-COV-2 COVID-19 VACCINE 2021-06-04 Doctor Univ ersity of BOOSTER,0.25ML,IM (MODERNA) 19:58:50 Unassigned, [place] [facility] [place] LUMBAR SPINE 2 VIEWS 2021-04-16 Koby Verma Seyb old 15:17:01 LUMBAR SPINE 2 VIEWS 2021-04-16 Koby Verma [facility] rmann 15:17:01 XR, lumbar spine 2020-02-20 [facility] 00:00:00 Group MRI, lumbar spine, w/o contrast 2020-02-20 [facility] 00:00:00 Group unlisted imaging order 2019-06-11 [facility] 00:00:00 Group unlisted imaging order 2019-05-07 [facility] 00:00:00 Group unlisted imaging order 2018-12-28 [facility] 00:00:00 Group Cataract [facility] 2012[facility]06-05 [facility] Removal - procedure 2005-06-05 [facility] 00:00:00 Hysterectomy 1988-06-05 [facility] 00:00:00 Appendectomy 1979-06-05 [facility] 00:00:00 Breast implantation 1974-06-05 [facility] 00:00:00 Miscellaneous operations [facility]-06-[address] [facility] [place] 00:00:00 Breast biopsy and related [facility] procedures Laparoscopy<sup>1</sup> [facility] Appendectomy [facility] Breast Surgery [facility] Cataract Surgery [facility] Hysterectomy [facility] Other [facility] Esophagogastroduodenoscopy (Surg) [facility] Plan of Care Planned Activity Planned Date Details Comments Source Future Scheduled 1964 COVID-19 Vaccination MD Cope Test 00:00:00 (1) [code = COVID-19 Vaccination (1)] Future Scheduled MR LUMBAR SPINE W/WO Mem [facility] [place] Test CONTRAST [code = 98285] Future Scheduled CREATINE, SERUM [code Me morial [place] Test = 10920] Future Scheduled Bone density scan [facility] [place] Test (procedure) [code = 786463504] Future Scheduled PNEUMOCOCCAL 65+ (1 of M [facility] Test 1 - PPSV23) [code = PNEUMOCOCCAL 65+ (1 of 1 - PPSV23)] Future Scheduled Screening for [facility] Test malignant neoplasm of colon (procedure) [code = 488969431] Future Scheduled Screening for [facility] Test malignant neoplasm of breast (procedure) [code = 873319596] Future Scheduled Zoster (Shingles) [facility] Test Vaccine (1 of 2) [code = Zoster (Shingles) Vaccine (1 of 2)] Future Scheduled Physical Exam 40 and Mem orial [place] Test over [code = Physical Exam 40 and over] Future Scheduled Lipid panel [facility] rmann Test (procedure) [code = 01722792] Future Scheduled TDAP [code = TDAP] Memor ial [place] Test Future Scheduled EYE EXAM [code = EYE Mem [facility] [place] Test EXAM] Future Scheduled COVID-19 Vaccination [facility] [place] Test (1) [code = COVID-19 Vaccination (1)] Encounters Start End Encounter Admission Attending Care Care Encounter Source Date/Time Date/Time Type Type Clinicians Facility Department ID 2021-07-30 2021-07-30 Outpatient [facility] TRUJILLO [id number] [place] 10:30:00 10:30:00 BIRGIT hernandez 2021-06-28 2021-06-28 Outpatient CONCHIS VERMA [id number] [place] 10:34:00 10:34:00 KOBY Hoffmanol david 2021-06-11 2021-06-11 Outpatient R [facility] [id number] Univers 13:20:00 13:20:00 [id number] [facility] 2021-06-11 2021-06-11 [facility] [id number] Univers 13:20:00 13:20:00 LEANNA [facility] 2021-06-10 2021-06-10 Outpatient CONCHIS MANTILLA [id number] [place] 00:00:00 00:00:00 MONSERRAT Ibarraybol david 2021-06-09 2021-06-09 Outpatient CONCHIS MANTILLA [id number] [place] 00:00:00 00:00:00 MONSERRAT Seybol david 2021-06-09 2021-06-09 Outpatient CONCHIS MANTILLA [id number] [place] 00:00:00 00:00:00 MONSERRAT Seybol d 2021-06-08 2021-06-08 Outpatient A_Byannette MM [facility]G 1827-20 [id number] [place] 04:31:00 04:31:00 104 Medical Group 2021-06-08 2021-06-08 Elpidio Onofre [facility] [place] - [id number] M lanieriverar 00:00:00 00:00:00 MD Leno: [facility] [address] [place] [address] Group [employer] - [address], [facility], [facility] [place] [address] , Ph. 2021-06-07 2021-06-07 Outpatient CONCHIS VERMA [id number] [place] 11:29:00 11:29:00 AHMED Seybol d 2021-06-04 2021-06-04 Imm/Inj Nurse, Adc Pob Immunization [facility] [id number] [facility] 14:40:00 14:40:00 Visit Mike Bourne 350.1.13 .10 [facility] 4.2.7.2.686 Dale burleson PROFESSIO [id number] Ms [address] 2021-05-27 2021-05-27 Outpatient CONCHIS VERMA [id number] [place] 00:00:00 00:00:00 KOBY Seybol d 2021-05-26 2021-05-26 Outpatient CONCHIS VERMA [id number] [place] 00:00:00 00:00:00 KOBY Seybol d 2021-05-25 2021-05-25 Office DIPTI Trujillo 1.2.840.114 [id number] [place] 10:00:00 10:30:00 Visit [facility] 350.1.13.13 marjan 1.2.7.2.686 [id number] 2021-05-25 2021-05-25 Outpatient CONCHIS MANTILLA [id number] [place] 00:00:00 00:00:00 MONSERRAT Hoffmanol david 2021-05-21 2021-05-21 Outpatient CONCHIS VERMA [id number] [place] 00:00:00 00:00:00 KOBY Seybol d 2021-05-21 2021-05-21 Outpatient KRYSTEN BARNES [id number] [place] 00:00:00 00:00:00 MD WILBER Seybol d 2021-05-21 2021-05-21 Outpatient KRYSTEN CON[facility] BARNES [id number] [place] 00:00:00 00:00:00 MD WILBER Seybol d 2021-05-19 2021-05-19 Outpatient CONCHIS SANTOS [id number] [place] 10:00:00 10:00:00 MAGALY Seybol d 2021-05-18 2021-05-18 Outpatient CONCHIS MANTILLA [id number] [place] 00:00:00 00:00:00 MONSERRAT Seybol d 2021-05-17 2021-05-17 Outpatient CONCHIS BARNES [id number] [place] 07:45:00 07:45:00 Seybol d 2021-05-17 2021-05-17 Outpatient CONCHIS SPRINGER [id number] [place] 00:00:00 00:00:00 ERASTO Seybol d 2021-05-08 2021-05-08 Outpatient CONCHIS MANTILLA [id number] [place] 00:00:00 00:00:00 MONSERRAT Seybol d 2021-05-07 2021-05-07 Outpatient CONCHIS MANTILLA [id number] [place] 00:00:00 00:00:00 MONSERRAT Seybol d 2021-05-07 2021-05-07 Outpatient CONCHIS MANTILLA [id number] [place] 00:00:00 00:00:00 MONSERRAT Seybol d 2021-05-06 2021-05-06 Outpatient CONCHIS VERMA [id number] [place] 00:00:00 00:00:00 AHMED Seybol d 2021-05-03 2021-05-03 Outpatient CONCHIS MANTILLA [id number] [place] 15:30:00 15:30:00 MONSERRAT Seybol d 2021-05-03 2021-05-03 Outpatient CONCHIS MANTILLA [id number] [place] 00:00:00 00:00:00 MONSERRAT Seybol d 2021-04-30 2021-04-30 Outpatient CONCHIS TRUJILLO [id number] [place] 13:00:00 13:00:00 BIRGIT Seybol d 2021-04-28 2021-04-28 Outpatient CONCHIS MANTILLA [id number] [place] 00:00:00 00:00:00 MONSERRAT Seybol d 2021-04-27 2021-04-27 Outpatient LAB47 CONCHIS BARNES [id number] [place] 13:00:00 13:00:00 Seybol d 2021-04-27 2021-04-27 Outpatient CONCHIS VERMA [id number] [place] 00:00:00 00:00:00 AHMED Seybol d 2021-04-27 2021-04-27 Outpatient CONCHIS MANTILLA [id number] [place] 00:00:00 00:00:00 MONSERRAT Seybol d 2021-04-27 2021-04-27 Outpatient CONCHIS ANDRADE [id number] [place] 00:00:00 00:00:00 MECCA Seybo ld 2021-04-24 2021-04-24 Outpatient CONCHIS MANTILLA [id number] [place] 00:00:00 00:00:00 MONSERRAT Seybol d 2021-04-23 2021-04-23 Outpatient CONCHIS MANTILLA [id number] [place] 00:00:00 00:00:00 MONSERRAT Seybol d 2021-04-20 2021-04-20 Outpatient CONCHIS VERMA [id number] [place] 00:00:00 00:00:00 AHMED Seybol d 2021-04-19 2021-04-19 Outpatient CONCHIS MANTILLA [id number] [place] 00:00:00 00:00:00 MONSERRAT Seybol d 2021-04-17 2021-04-17 Outpatient LAB47 CONCHIS BARNES [id number] [place] 11:05:00 11:05:00 Seybol d 2021-04-16 2021-04-16 Outpatient LAB90 CONCHIS BARNES [id number] [place] 14:50:00 14:50:00 Seybol d 2021-04-16 2021-04-16 Office nullFlavo [facility] [id number] Memoria 13:58:02 14:28:02 Visit r Medical and l Diagnostic [facility] 2021-04-16 2021-04-16 Outpatient CONCHIS BARNES [id number] [place] 09:05:00 09:05:00 Seybol d 2021-04-16 2021-04-16 Office DARRYLTONYBONNIE MELENDEZ ELVIS 1.2.840.114 [id number] [place] 08:15:00 08:15:00 Visit KOBY SMITH 350.1.13.13 Seybold DIAGNOSTI 1.2.7.2.686 [facility] [id number] 2021-04-13 2021-04-13 Outpatient CONCHIS VERMA [id number] [place] 00:00:00 00:00:00 AHMED Seybol d 2021-04-12 2021-04-12 Outpatient CONCHIS VERMA [id number] [place] 00:00:00 00:00:00 AHMED Seybol d 2021-03-29 2021-03-29 Outpatient CONCHIS MANTILLA [id number] [place] 00:00:00 00:00:00 MONSERRAT Seybol d 2021-03-26 2021-03-[address] [facility] [id number] [facility] 14:32:26 15:02:26 Visit ky weiner [facility] 2021-03-26 2021-03-26 Office Shiraz Mantilla 1.2.840.114 [id number] [place] 09:32:26 10:02:26 Visit Monserrat Rendon 350.1.13.13 Se ybkatia Somogyi 1.2.7.2.686 [id number] 2021-03-26 2021-03-26 Outpatient CONCHIS MANTILLA [id number] [place] 09:30:00 09:30:00 MONSERRAT Seybol d 2021-03-26 2021-03-26 Outpatient CONCHIS MANTILLA [id number] [place] 00:00:00 00:00:00 MONSERRAT Seybol d 2021-02-23 2021-02-23 Letter ALEX Willett [id number] Univers 00:00:00 00:00:00 (Out) Jason JORDAN 350.1.13.10 it y of [facility] 4.2.7.2.686 Junior as [id number] [address] 2021-02-22 2021-02-22 Laboratory Only, Ang Db Test [facility] 1.2.8 40.114 [id number] Univers 19:30:19 19:45:19 Only Leanna Soliz [facility] 350.1.13.10 ity of [place] 4.2.7.2.686 Junior as Sebastian?Blea [id number] Ms dical [address] Medical Office Building 2021-02-22 2021-02-22 Outpatient R MARTÍNEZ [facility] [id number] Univers 19:15:00 19:15:00 LEANNA [facility] 2021-02-18 2021-02-18 Outpatient A_Leno [facility] 1827- 210 [place] 02:46:00 02:46:00 916 [facility] 2021-02-18 2021-02-18 Elpidio Onofre [facility] [place] - [id number] M atagor 00:00:00 00:00:00 MD Leno: [address] [employer] Group [employer] - [address], [facility] [place] [address] , Ph. 2021-01-08 2021-01-08 Outpatient CONCHIS MANTILLA [id number] [place] 10:30:00 10:30:00 MONSERRAT hernandez 2021-01-08 2021-01-08 Outpatient CONCHIS MANTILLA [id number] [place] 10:15:00 10:15:00 MONSERRAT hernandez 2021-01-08 2021-01-08 Outpatient CONCHIS MANTILLA [id number] [place] 00:00:00 00:00:00 MONSERRAT hernandez 2021-01-04 2021-01-04 Outpatient CONCHIS MANTILLA [id number] [place] 16:00:00 16:00:00 MONSERRAT Seybol david 2020-11-10 2020-11-10 Outpatient A_Byannette [facility] 1827- 210 [place] 05:07:00 05:07:00 608 Medical Group 2020-11-10 2020-11-10 Outpatient A_Byrd MMG [facility] 1827- 210 [place] 05:07:00 05:07:00 609 Medical Group 2020-11-10 2020-11-10 Outpatient A_Byrd MMG MM [id number] [place] 05:07:00 05:07:00 610 Medical Group 2020-11-10 2020-11-10 Elpidio Onofre [facility] [place] - [id number] M atagor 00:00:00 00:00:00 MD Leno: [address] [place] [address] , Ph. 2020-08-31 2020-08-31 Outpatient A_Byrd MMG MM 1827- 210 [place] 03:23:00 03:23:00 607 Medical Group 2020-08-19 2020-08-19 Outpatient A_Byrd MMG MM 182- 210 [place] 11:17:00 11:17:00 317 Medical Group 2020-08-19 2020-08-19 Outpatient A_Byrd MM MM 182- 210 [place] 11:17:00 11:17:00 318 Medical Group 2020-08-19 2020-08-19 Elpidio Onofre [facility] [place] - [id number] M atagor 00:00:00 00:00:00 MD Leno: [address] [place] [address] , Ph. 2020-08-13 2020-08-13 [facility]20 210 [place] 05:30:00 05:30:00 311 Medical Group 2020-08-13 2020-08-13 Megan Cope [id number] Memoria 00:00:00 00:00:00 Only ky Carballo 2020-07-14 2020-07-14 [facility]20 210 [place] 02:56:00 02:56:00 209 da Medical Group 2020-07-14 2020-07-14 Outpatient A_Byrd MMG [facility] 1827-20 210 [place] 02:56:00 02:56:00 210 da [facility] Group 2020-04-22 2020-04-22 Outpatient A_Byrd MMG MM 1827-20 210 [place] 02:42:00 02:42:00 202 da [facility] Group 2020-04-22 2020-04-22 Outpatient A_Byrd MMG MM 1827-20 201 [place] 02:42:00 02:42:00 118 Medical Group 2020-04-06 2020-04-06 Outpatient PENA [facility] [id number] [place] 00:00:00 00:00:00 PATRICIA, 845 Method i [facility] 2020-03-24 2020-03-24 Outpatient [facility] [id number] [place] 00:00:00 00:00:00 PATRICIA, 795 Method i [facility] 2020-03-24 2020-03-24 Outpatient [facility] [id number] [place] 00:00:00 00:00:00 PATRICIA, 547 Method i [facility] 2020-03-24 2020-03-24 Outpatient [facility] [id number] [place] 00:00:00 00:00:00 PATRICIA, [address] 2020-03-04 2020-03-04 [facility] 7- 200 [place] 10:00:00 10:00:[address] [facility] 2020-02-20 2020-02-20 Outpatient IHDE_G MMG MM 7- 200 [place] 09:55:00 09:55:00 917 [facility] 2020-02-20 2020-02-20 Elpidio Onofre [facility] [place] - [id number] M atagor 00:00:00 00:00:00 MD Leno: [address] [facility], [facility] [place] [address] , Ph. 2020-01-28 2020-01-28 Outpatient IHDE_G MMG MMG 1827-20 200 [place] 11:38:00 11:38:00 825 da Medical Group 2020-01-28 2020-01-28 Outpatient IHDE_G MMG MMG 1827-20 200 [place] 11:38:00 11:38:00 916 da [facility] 2019-12-11 2019-12-11 Outpatient IHDE_G MMG MMG 1827-20 200 [place] 06:44:00 06:44:00 708 da [facility] 2019-12-11 2019-12-11 Elpidio Onofre MMG [place] - [id number] M at[place]or 00:00:00 00:00:00 MD Leno: da [address] [facility] Group [employer] - [address], [facility] [place] [address] , Ph. 2019-10-29 2019-10-29 Outpatient IHDE_G MMG MMG 1827-20 200 [place] 06:35:00 06:35:00 526 da Medical Group 2019-10-29 2019-10-29 Elpidio Onofre MMG [place] - [id number] M [place] 00:00:00 00:00:00 MD Leno: 600 [facility] Group [employer] - [address], [facility] [place] [address] , Ph. 2019-08-12 2019-08-12 Outpatient IHDE_G MMG MMG 1827-20 200 [place] 11:08:00 11:08:00 309 da Medical Group 2019-08-07 2019-08-07 Outpatient IHDE_G MMG MMG 1827-20 200 [place] 09:34:00 09:34:00 304 da [facility] Group 2019-07-22 2019-07-22 Outpatient IHDE_G MMG MMG 1827-20 200 [place] 04:59:00 04:59:00 217 da Medical Group 2019-07-18 2019-07-18 Outpatient IHDE_G MMG MMG 1827-20 200 [place] 05:21:00 05:21:00 213 da Medical Group 2019-07-18 2019-07-18 Simón MMG [place] - [id number] M [place] 00:00:00 00:00:00 Agus Contreras MD: Medical Medica l 600 [facility] [address], [place] [address] , Ph. [phone] 2019-07-05 2019-07-05 Outpatient IHDE_G MMG MM 1827-20 200 [place] 09:08:00 09:08:00 131 Medical [...] 07:19:00 07:19:00 107 Medical Group 2019-06-11 2019[facility]06-11 [facility] [place] [facility] [id number] [facility] 00:00:00 00:00:00 Agus Contreras MD: Medical Medica l [address] [facility] [address], [place] [address] , Ph. [phone] 2019-05-22 2019-05-22 Elpidio ADAMS [place] - [id number] M at[place]or 00:00:00 00:00:00 MD Leno: [facility] [employer] [address] [place] [address] - [address], [facility] [address] , Ph. 2019-05-07 2019-05-07 Elpidio Onofre MM [place] - [id number] M [place]or 00:00:00 00:00:00 MD Leno: [address], [facility], [facility] [place] [place] [address] , Ph. 2019-03-26 2019-03-26 Elpidio ADAMS [place] - [id number] M at[place]or 00:00:00 00:00:00 MD Leno: [address], [facility], [facility] [place] [address] , Ph. 2018-12-28 2018-12-28 Elpidio ADAMS [place] - [id number] M at[place] 00:00:00 00:00:00 MD Leno: [address], [facility] [place] [address] , Ph. 2018-05-31 2018-05-31 Elpidio Onofre MM [place] - [id number] M [place] 00:00:00 00:00:00 MD Leno: [address], [facility] [place] [address] , Ph. 2016-05-31 2016-06-01 Outpatient [facility] [id number] [facility] 12:55[facility] 05:59:00 r [place] 01 l [place] 2016-05-02 2016-05-02 Day [facility] [id number] [place] 13:55:11 21:05:00 Surgery r Haris 00 l [place] Ana nn Results Test Description Test Time Test Comments Results Result Comments Source Potassium Level 2019-08-23 09:37:59 Test Item Value Reference Range Interpretation Comme nts Potassium Level (test code = Potassium Level) 3.3 mmol/L 3.5-5.1 L Basic Metabolic [id number] 08:39:57 Test Item Value Reference Range Interpretation Comments Sodium Level (test 132.0 mmol/L 135.0-145.0 L code = Sodium Level) Potassium Level (test >10.0 mmol/L 3.5-5.1 Critic al results code = Potassium called to E . peggy Level) at 08/23/2019 08:39:49 CDT by glneys. Read back and verified? yes Chloride Level [...] 8.3-10.5 code = Calcium Level) Basic Metabolic [id number] 08:39:57 Test Item Value Reference Range Interpretation Comments Sodium Level (test 132.0 mmol/L 135.0-145.0 L code = Sodium Level) Potassium Level >10.0 mmol/L 3.5-5.1 Critical res ults (test code = called to NikkySherry tu bbs Potassium Level) at 0 08:39:49 [...] National Kidney Foundation, http://nkdep.ni h.gov Basic Metabolic [id number] 08:39:57 Test Item Value Reference Range Interpretation Comments Sodium Level (test 132.0 mmol/L 135.0-145.0 L code = Sodium Level) Potassium Level >10.0 mmol/L 3.5-5.1 Critical res ults (test code = called to [facility] Potassium Level) at 0 08:39:49 CDT by [...] ag e have not been validated by [facility] MDRD study and should be interpreted wit [...] ag e have not been validated by [facility] MDRD study and should be interpreted wit h caution. eGFR R esult Interpretation: eGFR > or = 60 is in the Normal RangeeGF R < 60 may mean kid steve diseaseeGFR < 1 5 may mean kidney failure Rang es recommended by the National Kidney Foundation, http://nkdep.ni h.gov Prothrombin Time and [id number] 08:30:21 Test Item Value Reference Range Interpretation Comments Prothrombin Time (test code = 12.2 seconds 9.8-13.4 Prothrombin Time) INR (test code = INR) 1.0 ratio 0.6-1.2 Partial Thromboplastin [id number] 08:30:21 Test Item Value Reference Range Interpretation Comments Partial Thromboplastin Time 33.10 seconds 24.39-37.25 (test code = Partial Thromboplastin Time) Complete Blood Count with [id number] 08:21:36 Test Item Value Reference Range Interpretation [...] code = IPF) 0 % N Automated [id number] 08:21:36 Test Item Value Reference Range Interpretation Comments Neutro Auto (test code = Neutro 41.9 % 36.0-70.0 Auto) Lymph Auto (test code = Lymph Auto) 45.2 % 12.0-44.0 H Assumption Auto (test code = Assumption Auto) 10.5 % 0.0-11.0 Eos, Auto (test code = Eos, Auto) 1.7 % 0.0-7.0 Basophil Auto (test code = Basophil 0.4 % 0.0-2.0 Auto) Neutro Absolute (test code = Neutro 2.9 x10 1.6-7.4 Absolute) Lymph Absolute (test code = Lymph 3.11 x10 .50-4.60 Absolute) Assumption Absolute (test code = Assumption .72 x10 .00-1.20 Absolute) Eos Absolute (test code = Eos 0.12 x10 0.00-0.74 Absolute) Baso Absolute (test code = Baso 0.03 x10 0.00-0.21 Absolute) IG [id number] 08:21:36 Test Item Value Reference Range Interpretation Comments IG (test code = IG) 0.3 % 0.0-5.0 IG Abs (test code = IG Abs) 0 x10 N CBC W Auto Differential panel - [id number] 07:27:00 Test Item Value Reference Range Interpretation Comments white blood count (test code = 5.6 K/uL 4.0-11.5 white blood count) red blood count (test code = red 4.54 M/uL 3.80-5.20 blood count) hemoglobin (test code = 10.5 g/dL 10.5-15.7 hemoglobin) hematocrit (test code = 34.3 % 34.0-50.0 hematocrit) Erythrocyte mean corpuscular 75.6 fL 86-100 L volume [Entitic volume] (test code = 51803-6) mean corpuscular hemoglobin (test 23.1 pg 26.2-33.4 [...] 44.4-80.1 leukocytes in Blood (test code = 66834-2) Granulocytes Immature [#/volume] 0.0 K/uL 0.0-0.03 in Blood (test code = 40483-5) lymphocyte% (test code = 37.5 % 10.0-50.0 lymphocyte%) mono % (test code = mono %) 6.9 % 3.6-12.0 eos % (test code = eos %) 3.0 % 0.0-5.4 Basophils/100 leukocytes in 0.5 % 0.1-1.2 Unspecified specimen (test code = 35656-7) Neutrophils.band form [#/volume] 2.92 K/uL 1.56-6.13 in Blood (test code = 54252-0) Lymphocytes [#/volume] in 2.1 K/uL 1.18-3.74 Unspecified specimen by Automated count (test code = 64224-9) mono # (test code = mono #) 0.39 K/uL 0.24-0.86 eos # (test code = eos #) 0.17 K/uL 0.04-0.36 basophil # (test code = basophil 0.03 K/uL 0.01-0.08 #) NRBC% (test code = NRBC%) 0 /100 WBC 0-0.2 NRBC# (test code = NRBC#) 0 [facility] [id number] 07:27:00 NeutrophilsBandLymphocyteAtypical LymphMonocyteEosinophilMetamyelocyteMyelocytePlatelet EstimatePlatelet MorphologyDifferential comment-[facility] CenterComprehensive metabolic 2000 panel - Serum or [id number] 07:27:00 Test Item Value Reference Range Interpretation [...] Serum or Plasma (test code = 6768-6) [facility].cardiac [Mass/volume] in [id number] 07:27:00 Test Item Value Reference Range Interpretation Comments cardiac troponin I (test code = cardiac <0.30 0.0-0.5 troponin I) [facility] HospitalCreatine kinase.MB [Mass/volume] in Serum or Plasma 2019-06-29 07:27:00 Test Item Value Reference Range Interpretation Comments mass creatinine kinase-mb (test 1.7 NG/mL 0.0-3.6 code = mass creatinine kinase-mb) [facility] HospitalTroponin I.cardiac [Mass/volume] in [id number] 11:38:00 Test Item Value Reference Range Interpretation Comments cardiac troponin I (test code = cardiac <0.30 0.0-0.5 troponin I) [facility] HospitalCreatine kinase.MB [Mass/volume] in Serum or Plasma 2019-06-28 11:38:00 Test Item Value Reference Range Interpretation Comments mass creatinine kinase-mb (test 1.6 NG/mL 0.0-3.6 code = mass creatinine kinase-mb) [facility] [id number] 08:35:00 Test Item Value Reference Range Interpretation Comments Surgical pathology see separate pathology study (test code = report. 67804-3) [facility]Mass/volume] in [id number] 06:27:00 Test Item Value Reference Range Interpretation Comments cardiac troponin I (test code = cardiac <0.30 0.0-0.5 troponin I) [facility] HospitalCreatine kinase.MB [Mass/volume] in Serum or Plasma 2019-06-28 06:27:00 Test Item Value Reference Range Interpretation Comments mass creatinine kinase-mb (test 1.7 NG/mL 0.0-3.6 code = mass creatinine kinase-mb) [facility] HospitalCreatine kinase [Enzymatic activity/volume] in Serum or [id number] 01:44:00 Test Item Value Reference Range Interpretation Comments creatine kinase (test code = creatine 40 U/L 20-180 kinase) [facility] HospitalTroponin I.cardiac [Mass/volume] in [id number] 01:44:00 Test Item Value Reference Range Interpretation Comments cardiac troponin I (test code = cardiac <0.30 0.0-0.5 troponin I) [facility] HospitalCreatine kinase.MB [Mass/volume] in Serum or Plasma 2019-06-28 01:44:00 Test Item Value Reference Range Interpretation Comments mass creatinine kinase-mb (test 1.5 NG/mL 0.0-3.6 code = mass creatinine kinase-mb) [facility] Differential panel - [id number] 10:00:00 Test Item Value Reference Range Interpretation Comments white blood count (test code = 7.0 K/uL 4.0-11.5 white blood count) red blood count (test code = red 4.56 M/uL 3.80-5.20 blood count) hemoglobin (test code = 11.0 g/dL 10.5-15.7 hemoglobin) hematocrit (test code = 34.2 % 34.0-50.0 hematocrit) Erythrocyte mean corpuscular 75.0 fL 86-100 L volume [Entitic volume] (test code = 51504-6) mean corpuscular hemoglobin (test 24.1 pg 26.2-33.4 [...] 44.4-80.1 leukocytes in Blood (test code = 15791-7) Granulocytes Immature [#/volume] 0.0 K/uL 0.0-0.03 in Blood (test code = 16695-6) lymphocyte% (test code = 44.7 % 10.0-50.0 lymphocyte%) mono % (test code = mono %) 8.6 % 3.6-12.0 eos % (test code = eos %) 0.9 % 0.0-5.4 Basophils/100 leukocytes in 0.6 % 0.1-1.2 Unspecified specimen (test code = 19850-7) Neutrophils.band form [#/volume] 3.16 K/uL 1.56-6.13 in Blood (test code = 59499-9) Lymphocytes [#/volume] in 3.1 K/uL 1.18-3.74 Unspecified specimen by Automated count (test code = 09334-6) mono # (test code = mono #) 0.60 K/uL 0.24-0.86 eos # (test code = eos #) 0.06 K/uL 0.04-0.36 basophil # (test code = basophil 0.04 K/uL 0.01-0.08 #) NRBC% (test code = NRBC%) 0 /100 WBC 0-0.2 NRBC# (test code = NRBC#) 0 K/uL [facility] Hospitaldifferential panel, [id number] 10:00:00 NeutrophilsBandLymphocyteAtypical LymphMonocytePlatelet EstimateMataBeacham Memorial [id number] 14:00:00 Test Item Value Reference Range Interpretation Comments RDW (test code = RDW) 15.7 11.5-14.5 [facility] Camp[id number] 14:00:00 Test Item Value Reference Range Interpretation Comments MCV (test code = MCV) 86.5 80.0-98.0 [facility] Camp[id number] 14:00:00 Test Item Value Reference Range Interpretation Comments Hct (test code = Hct) 40.8 36.0-48.0 [facility] CampusWolaakxTNZKWTBWAE2447-62-45 14:00:00 Test Item Value Reference Range Interpretation Comments MPV (test code = MPV) 9.6 7.4-10.4 [facility] CampusXhqctgmWWCLOUQYUC0095-97-96 14:00:00 Test Item Value Reference Range Interpretation Comments Platelet (test code = Platelet) 852 877-496 [facility] CampusAtxfidnFPNYMXSAHR4858-74-63 14:00:00 Test Item Value Reference Range Interpretation Comments PT (test code = PT) 13.5 s 12.0-14.7 [facility] CampusSxjmazyVUKZLIGXSV0658-86-62 14:00:00 Test Item Value Reference Range Interpretation Comments INR (test code = INR) 1.01 0.85-1.17 [facility] CampusYjvxzklOYBOGPIGIG7815-10-81 14:00:00 Test Item Value Reference Range Interpretation Comments PTT (test code = PTT) 33.2 s 22.9-35.8 [facility] CampusKodnxhrGUEZWRRJDU1739-76-63 14:00:00 Test Item Value Reference Range Interpretation Comments Platelet (test code = Platelet) 737 868-052 [facility] CampusSylrukqSLZXXZDOMR0224-83-90 14:00:00 Test Item Value Reference Range Interpretation Comments Eosinophils # (test code 0.2 See_Comment [A utomated message] The = Eosinophils #) system whic h generated this result tra nsmitted reference range : <=0.5. The reference r caren was not used to int erpret this result as normal/abnormal . [facility] [id number] 14:00:00 Test Item Value Reference Range Interpretation Comments Monocytes (test code = Monocytes) 5.5 2.0-12.0 [facility] CampusVmggniaVENRDYDCXO2923-49-79 14:00:00 Test Item Value Reference Range Interpretation Comments Segs (test code = Segs) 57.7 45.0-75.0 [facility] CampusOrgiwfvXFZEQTABJK4725-44-71 14:00:00 Test Item Value Reference Range Interpretation Comments Lymphocytes (test code = Lymphocytes) 33.5 20.0-40.0 [facility] CampusNjkoxfsDRGMWZFSDK3412-23-17 14:00:00 Test Item Value Reference Range Interpretation Comments Eosinophils (test code = 2.9 See_Comment [A utomated message] The Eosinophils) system which ge nerated this result tra nsmitted reference range : <=4.0. The reference r caren was not used to int erpret this result as normal/abnormal . [facility] CampusAuqnequUYAVQGNZYT1301-95-19 14:00:00 Test Item Value Reference Range Interpretation Comments Segs-Bands # (test code = Segs-Bands #) 4.9 1.5-8.1 [facility] Camp[id number] 14:00:00 Test Item Value Reference Range Interpretation Comments Lymphocytes # (test code = Lymphocytes 2.9 1.0-5.5 #) [facility] CampusBfmsfhgAUXXVTJOZD7836-72-49 14:00:00 Test Item Value Reference Range Interpretation Comments Monocytes # (test code 0.5 See_Comment [Aut omated message] The = Monocytes #) system which generated this result tra nsmitted reference range : <=0.8. The reference r caren was not used to int erpret this result as normal/abnormal . [facility] CampusCzrcfwbCUTZPWUOXO9436-67-29 14:00:00 Test Item Value Reference Range Interpretation Comments Basophils (test code = 0.4 See_Comment [Aut omated message] The Basophils) system which ge nerated this result tra nsmitted reference range : <=1.0. The reference r caren was not used to int erpret this result as normal/abnormal . [facility] Camp[id number] 14:00:00 Test Item Value Reference Range Interpretation Comments Basophils # (test code 0.0 See_Comment [Aut omated message] The = Basophils #) system which generated this result tra nsmitted reference range : <=0.2. The reference r caren was not used to int erpret this result as normal/abnormal . [facility] CampusKqarsbiSTPOBECYWR2580-98-50 14:00:00 Test Item Value Reference Range Interpretation Comments Large Plt (test code = Large Plt) Slight [facility] CampusEitycwuVRNHTRYHMQ9957-81-32 14:00:00 Test Item Value Reference Range Interpretation Comments Hgb (test code = Hgb) 13.3 12.0-16.0 [facility] CampusCnzhassIVYXMVUESL4613-87-45 14:00:00 Test Item Value Reference Range Interpretation Comments WBC (test code = WBC) 8.5 3.7-10.4 [facility] CampusAbfujuzWDXKWLQBFN7908-47-17 14:00:00 Test Item Value Reference Range Interpretation Comments RBC (test code = RBC) 4.72 4.20-5.40 [facility] CampusFnkmacoZMUNCVCJKB1549-07-10 14:00:00 Test Item Value Reference Range Interpretation Comments MCHC (test code = MCHC) 32.7 32.0-36.0 [facility] CampusLxdghddGIJTWKATYR9966-11-71 14:00:00 Test Item Value Reference Range Interpretation Comments MCH (test code = MCH) 28.2 pg 27.0-31.0 [facility]2016-11-21 17:44:00 Test Item Value Reference Range Interpretation Comments eGFR (test code = eGFR) 97 [facility]2016-11-21 17:44:00 Test Item Value Reference Range Interpretation Comments Sodium Lvl (test code = Sodium Lvl) 137 135-145 [facility]2016-11-21 17:44:00 Test Item Value Reference Range Interpretation Comments BUN (test code = BUN) 16 7-22 [facility]2016-11-21 17:44:00 Test Item Value Reference Range Interpretation Comments CO2 (test code = CO2) 27 24-32 [facility]2016-11-21 17:44:00 Test Item Value Reference Range Interpretation Comments Creatinine Lvl (test code = Creatinine 0.60 0.50-1.40 Lvl) [facility]2016-11-21 17:44:00 Test Item Value Reference Range Interpretation Comments Glucose Lvl (test code = Glucose Lvl) 97 70-99 [facility]2016-11-21 17:44:00 Test Item Value Reference Range Interpretation Comments Potassium Lvl (test code = Potassium 4.0 3.5-5.1 Lvl) [facility]2016-11-21 17:44:00 Test Item Value Reference Range Interpretation Comments Calcium Lvl (test code = Calcium Lvl) 9.0 8.5-10.5 [facility]2016-11-21 17:44:00 Test Item Value Reference Range Interpretation Comments Chloride Lvl (test code = Chloride Lvl) 101 95-109 [facility]2016-11-21 17:44:00 Test Item Value Reference Range Interpretation Comments AGAP (test code = AGAP) 13.0 10.0-20.0 [facility] CampusWimtktwGCRRZNKJWY1993-30-56 17:44:00 Test Item Value Reference Range Interpretation Comments MPV (test code = MPV) 8.6 7.4-10.4 [facility] Camp[id number] 17:44:00 Test Item Value Reference Range Interpretation Comments Platelet (test code = Platelet) 323 133-450 [facility] CampusHbjftrxQTHVENBWJX8614-84-77 17:44:00 Test Item Value Reference Range Interpretation Comments MCHC (test code = MCHC) 33.2 32.0-36.0 [facility] CampusHnmfhhfGRULIOOMNJ1731-93-92 17:44:00 Test Item Value Reference Range Interpretation Comments MCH (test code = MCH) 28.2 pg 27.0-31.0 [facility] CampusFgmppntUHWFAFFZDX5429-44-13 17:44:00 Test Item Value Reference Range Interpretation Comments RDW (test code = RDW) 15.2 11.5-14.5 [facility] CampusRytzsdvBGONGCRKVI5092-20-75 17:44:00 Test Item Value Reference Range Interpretation Comments Hgb (test code = Hgb) 12.6 12.0-16.0 [facility] CampusEtxxrbcDBTSTDDDMG5703-72-28 17:44:00 Test Item Value Reference Range Interpretation Comments Hct (test code = Hct) 38.0 36.0-48.0 [facility] CampusLniolfnXTISQGPXCB7756-97-50 17:44:00 Test Item Value Reference Range Interpretation Comments MCV (test code = MCV) 85.0 80.0-98.0 [facility] CampusTcecfrhYWBQNETBPR9308-75-87 17:44:00 Test Item Value Reference Range Interpretation Comments WBC (test code = WBC) 8.8 3.7-10.4 [facility] CampusKlinsnoMCBYXFDJBP1572-21-48 17:44:00 Test Item Value Reference Range Interpretation Comments RBC (test code = RBC) 4.47 4.20-5.40 [facility] CampusQwibfjxOEIHPMNUZG8346-68-82 17:44:00 Test Item Value Reference Range Interpretation Comments Basophils # (test code 0.1 See_Comment [Aut omated message] The = Basophils #) system which generated this result tra nsmitted reference range : <=0.2. The reference r caren was not used to int erpret this result as normal/abnormal . [facility] CampusKjgmynlOTHNLPBQPM4548-75-26 17:44:00 Test Item Value Reference Range Interpretation Comments Eosinophils # (test code 0.1 See_Comment [A utomated message] The = Eosinophils #) system wh h generated this result tra nsmitted reference range : <=0.5. The reference r caren was not used to int erpret this result as normal/abnormal . [facility] CampusTivwgkvFCOMQZGQOK2278-29-07 17:44:00 Test Item Value Reference Range Interpretation Comments Eosinophils (test code = 1.3 See_Comment [A utomated message] The Eosinophils) system which ge nerated this result tra nsmitted reference range : <=4.0. The reference r caren was not used to int erpret this result as normal/abnormal . [facility] CampusFvseixsTGPFYHEBJG6638-20-80 17:44:00 Test Item Value Reference Range Interpretation Comments Monocytes (test code = Monocytes) 6.7 2.0-12.0 [facility] CampusQhpuqqfCBZRBHZXOW9032-74-62 17:44:00 Test Item Value Reference Range Interpretation Comments Lymphocytes # (test code = Lymphocytes 2.9 1.0-5.5 #) [facility] CampusMnvyszxHATCBIAOHA7420-54-74 17:44:00 Test Item Value Reference Range Interpretation Comments Monocytes # (test code 0.6 See_Comment [Aut omated message] The = Monocytes #) system which generated this result tra nsmitted reference range : <=0.8. The reference r caren was not used to int erpret this result as normal/abnormal . [facility] CampusBzbwabuEZHFBSDNOH4225-55-11 17:44:00 Test Item Value Reference Range Interpretation Comments Lymphocytes (test code = Lymphocytes) 33.2 20.0-40.0 [facility] CampusDnwtjtgKSUILVZYKI5624-02-11 17:44:00 Test Item Value Reference Range Interpretation Comments Segs-Bands # (test code = Segs-Bands #) 5.1 1.5-8.1 [facility] CampusQuivlroFOTEHXVBVO6608-24-03 17:44:00 Test Item Value Reference Range Interpretation Comments Basophils (test code = 0.6 See_Comment [Aut omated message] The Basophils) system which ge nerated this result tra nsmitted reference range : <=1.0. The reference r caren was not used to int erpret this result as normal/abnormal . [facility] CampusTkxgwyyQDLUYZPBZK9445-82-79 17:44:00 Test Item Value Reference Range Interpretation Comments Segs (test code = Segs) 58.2 45.0-75.0 Paula Carballo
[2021-06-14] MEDS ORDERED: METHYLPREDNISOLONE 125 MG INJ ONE (14:13)
[2021-06-14] MEDS ORDERED: IPRATROPIUM BROM 0.5MG/2.5ML ONE (14:14)
--- NOTE | 2021-06-14 14:16 | RAD REPORT ---
EXAM DESCRIPTION: RAD - Chest Single View - 06/14/2021 1:55 pm CLINICAL HISTORY: DYSPNEA Chest pain. COMPARISON: Chest Single View dated 10/14/2020; Chest Single View dated 04/27/2020; Chest Single View dated 08/26/2017 FINDINGS: Portable technique limits examination quality. Moderate bilateral pulmonary opacities may represent pulmonary edema or viral infection. The heart is mildly to moderately enlarged. No displaced fractures.
[2021-06-14] MEDS ORDERED: LORazepam 2 MG/ML VIAL ONE (14:55)
[2021-06-14 15:23] LABS: Absolute Lymphocytes (CBC) 4.7 K/uL (0.7-4.9); Hematocrit 31.9 % (36.0-45.0); Lymphocytes % 23.9 % (15.3-44.8); MPV 7.2 fL (7.6-11.3); Protime INR 1.21; RBC Red Blood Cell Count 4.09 M/uL (3.86-4.86)
[2021-06-14] MEDS ORDERED: FUROSEMIDE 100 MG/10 ML VIAL IV ONE (15:32)
[2021-06-14 15:33] LABS: Albumin 2.8 g/dL (3.4-5.0); Bilirubin Direct 0.2 mg/dL (0-0.2); Bilirubin Total 0.4 mg/dL (0.2-1.0); Potassium 4.1 mmol/L (3.5-5.1); Protein, Total 7.6 g/dL (6.4-8.2); Troponin (Emerg Dept Use Only) 0.18 ng/mL (0.0-0.045)
--- NOTE | 2021-06-14 16:19 | ER ---
Nurse's Notes [facility] Name: Gregoria Vela Age: 71 yrs Sex: Female : 1950 Arrival Date: 06/14/2021 Time: 13:20 Bed 17 Private MD: Diagnosis: Acute systolic (congestive) heart failure;Subsequent non-ST elevation (NSTEMI) myocardial infarction Presentation: 06/14 13:21 Chief complaint: Patient states: SOB. Coronavirus screen: Vaccine status: Patient fisher reports receiving the 2nd dose of the covid vaccine. Ebola Screen: Patient denies travel to an Ebola-affected area in the 21 days before illness onset. Initial Sepsis Screen: Does the patient meet any 2 criteria? RR > 20 per min. HR > 90 bpm. No. Patient's initial sepsis screen is negative. Does the patient have a suspected source of infection? No. Patient's initial sepsis screen is negative. Risk Assessment: Do you want to hurt yourself or someone else? Patient reports no desire to harm self or others. Onset of symptoms was June 14, 2021. 13:21 Method Of Arrival: EMS: [facility] 13:21 Acuity: ERIC 3 fisher Historical: - Allergies: 13:24 ACETAMINOPHEN; fisher 13:24 Hydrocodone-Acetaminophen; fisher - Home Meds: 13:24 Aspirin Oral [Active]; fenofibrate Oral [Active]; gemfibrocell [Active]; Isosorbide fisher Mononitrate Oral [Active]; lisinopril Oral [Active]; Premarin Oral [Active]; Prevacid Oral [Active]; Prozac Oral [Active]; - PMHx: 13:24 cardiac stent; CAD; Hyperlipidemia; Hypertension; LYMPHOMA; skin cancer; plate in head; fisher - PSHx: 13:24 plate in head; fisher - Immunization history:: Adult Immunizations up to date. - Social history:: Smoking status: Patient denies any tobacco usage or history of. Screenin:23 Abuse screen: Denies threats or abuse. Denies injuries from another. Nutritional fisher screening: No deficits noted. Tuberculosis screening: No symptoms or risk factors identified. Fall Risk None identified. Assessment: 13:23 General: Appears in no apparent distress. Behavior is calm, cooperative. Pain: Denies fisher pain. Respiratory: Reports shortness of breath at rest on exertion Breath sounds are clear bilaterally. 13:42 Respiratory: Breath sounds with wheezes in right upper lobe and left upper lobe. fisher 19:00 General: Appears in no apparent distress. Pain: Denies pain. Neuro: Level of Consciousness is awake, alert, obeys commands, Oriented to person, place, time, situation, Lock Plater are equal bilaterally Moves all extremities. Gait is steady. Cardiovascular: Heart tones S1 S2 present Capillary refill < 3 seconds fingers toes Clubbing of nail beds is absent JVD is absent Patient's skin is warm and dry. Pulses are 2+ in right radial artery, right dorsalis pedis artery, left radial artery and left dorsalis pedis artery Edema is absent. Rhythm is regular. GI: Abdomen is flat, non-distended. : Derm: Skin is intact, is fragile, Skin is dry, Skin is pink, warm \\T\\ dry. Skin temperature is warm. Musculoskeletal: Circulation, motion, and sensation intact. Capillary refill < 3 seconds, fingers. toes. Range of motion: intact in all extremities. 20:00 Reassessment: Patient appears in no apparent distress at this time. No changes from previously documented assessment. Patient and/or family updated on plan of care and expected duration. Pain level reassessed. 21:00 Reassessment: Patient appears in no apparent distress at this time. No changes from previously documented assessment. Patient and/or family updated on plan of care and expected duration. Pain level reassessed. Vital Signs: 13:21 BP 163 / 95; Pulse 109; Resp 20; Temp 97.5(O); Pulse Ox 98% on R/A; Weight 81.65 kg; fisher Height 5 ft. 1 in. (154.94 cm); 14:58 BP 154 / 93; Pulse 108; Resp 20; Pulse Ox 98% on R/A; fisher 15:52 BP 144 / 71; Pulse 107; Resp 20; Pulse Ox 97% on R/A; fisher 19:00 BP 147 / 88; Pulse 66; Resp 18; Pulse Ox 100% on R/A; mk 20:00 BP 165 / 88; Pulse 73; Resp 18; Pulse Ox 98% on R/A; mk 06/15 06:30 BP 151 / 79; Pulse 99; Resp 18; Pulse Ox 98% on R/A; mk 06/14 13:21 Body Mass Index 34.01 (81.65 kg, 154.94 cm) fisher [place] Coma Score: 06/14 19:00 Eye Response: spontaneous(4). Verbal Response: oriented(5). Motor Response: obeys mk commands(6). Total: 15. 20:00 Eye Response: spontaneous(4). Verbal Response: oriented(5). Motor Response: obeys mk commands(6). Total: 15. 06/15 06:30 Eye Response: spontaneous(4). Verbal Response: oriented(5). Motor Response: obeys mk commands(6). Total: 15. ED Course: 06/14 13:20 Patient arrived in ED. fisher 13:23 Triage completed. fisher 13:23 Patient has correct armband on for positive identification. Bed in low position. fisher 13:23 No provider procedures requiring assistance completed. fisher 13:24 Arm band placed on. fisher 13:25 Leroy Rowland PA is PHCP. jr8 13:25 Reinaldo Nascimento MD is Attending Physician. jr8 13:30 EKG done, by ED staff, reviewed by Leroy BALDERAS. mb7 13:54 XRAY Chest (1 view) In Process Unspecified. EDMS 14:44 SARS-COV-2 RT PCR Sent. fisher 14:44 COVID-19 SARS RT PCR (Document "Date of Onset" if Symptomatic) Sent. fisher 15:07 CBC with Automated Diff Sent. fisher 15:07 Liver (Hepatic) Function Sent. fisher 15:08 Magnesium Sent. fisher 15:08 Basic Metabolic Panel Sent. fisher 15:08 Basic Metabolic Panel Sent. fisher 15:08 CBC with Diff Sent. fisher 15:08 LFT's Sent. fisher 15:08 Magnesium Sent. fisher 16:18 Wilma Valdovinos MD is Hospitalizing Provider. jr8 19:17 Olga Pink, GELACIO is Primary Nurse. mk 21:14 Report given to Amando for admit. mk 21:14 Patient admitted, IV remains in place. mk Administered Medications: 14:21 Drug: SOLU-Medrol (methylPrednisoLONE) 125 mg Route: IVP; Site: left forearm; fisher 14:21 Follow up: Response: No adverse reaction fisher 14:21 Drug: Albuterol - atroVENT (ipratropium) (3:1) (2.5 mg - 0.5 mg) 3 ml Route: Nebulizer; fisher 14:21 Follow up: Response: No adverse reaction fisher 15:04 Drug: Ativan (LORazepam) 0.5 mg Route: IVP; Site: left forearm; fisher 15:05 Follow up: Response: No adverse reaction fisher 15:31 Drug: Lasix (furosemide) 60 mg Route: IVP; Site: left forearm; fisher 15:34 Follow up: Response: No adverse reaction fisher 16:22 Drug: Lovenox (enoxaparin) 1 mg/kg Route: Sub-Q; Site: left lower abdomen; fisher 17:07 Follow up: Response: No adverse reaction fisher Outcome: 16:18 Decision to Hospitalize by Provider. denisse 21:14 Admitted to Tele 21:14 Condition: stable 21:14 Instructed on the need for admit. 21:14 Patient left the ED. almita Signatures: Dispatcher [employer] EDLeroy Mendiola PA PA jrFlora Sutton 7 Cris Quick, RN RN fisehr Olga Pink RN RN
--- NOTE | 2021-06-14 16:19 | EDPHYS ---
Physician Documentation [facility] Name: Gregoria Vela Age: 71 yrs Sex: Female : 1950 Arrival Date: 06/14/2021 Time: 13:20 Bed 17 Private MD: ED Physician Reinaldo Nascimento HPI: 06/14 17:18 This 71 yrs old Female presents to ER via EMS with complaints of shortness of breath. jr8 17:18 The patient has shortness of breath at rest. Onset: The symptoms/episode began/occurred jr8 gradually. Duration: The symptoms are continuous, and are steadily getting worse. The patient's shortness of breath is aggravated by walking. Associated signs and symptoms: The patient has no apparent associated signs or symptoms. Severity of symptoms: At their worst the symptoms were moderate in the emergency department the symptoms are unchanged. It is unknown whether or not the patient has had similar symptoms in the past. The patient has not recently seen a physician. Historical: - Allergies: 13:24 ACETAMINOPHEN; fisher 13:24 Hydrocodone-Acetaminophen; fisher - Home Meds: 13:24 Aspirin Oral [Active]; fenofibrate Oral [Active]; gemfibrocell [Active]; Isosorbide fisher Mononitrate Oral [Active]; lisinopril Oral [Active]; Premarin Oral [Active]; Prevacid Oral [Active]; Prozac Oral [Active]; - PMHx: 13:24 cardiac stent; CAD; Hyperlipidemia; Hypertension; LYMPHOMA; skin cancer; plate in head; fisher - PSHx: 13:24 plate in head; fisher - Immunization history:: Adult Immunizations up to date. - Social history:: Smoking status: Patient denies any tobacco usage or history of. ROS: 17:18 Eyes: Negative for injury, pain, redness, and discharge, ENT: Negative for injury, jr8 pain, and discharge, Neck: Negative for injury, pain, and swelling, Abdomen/GI: Negative for abdominal pain, nausea, vomiting, diarrhea, and constipation, Back: Negative for injury and pain, MS/Extremity: Negative for injury and deformity, Skin: Negative for injury, rash, and discoloration, Neuro: Negative for headache, weakness, numbness, tingling, and seizure. 17:18 Cardiovascular: Positive for edema, orthopnea. 17:18 Respiratory: Positive for dyspnea on exertion, shortness of breath. Exam: 17:18 Constitutional: This is a well developed, well nourished patient who is awake, alert, jr8 and in no acute distress. Abdomen/GI: Soft, non-tender, with normal bowel sounds. No distension or tympany. No guarding or rebound. No evidence of tenderness throughout. Back: No spinal tenderness. No costovertebral tenderness. Full range of motion. Skin: Warm, dry with normal turgor. Normal color with no rashes, no lesions, and no evidence of cellulitis. MS/ Extremity: Pulses equal, no cyanosis. Neurovascular intact. Full, normal range of motion. Neuro: Awake and alert, GCS 15, oriented to person, place, time, and situation. Cranial nerves II-XII grossly intact. Motor strength 5/5 in all extremities. Sensory grossly intact. 17:18 Cardiovascular: Rate: tachycardic, Rhythm: regular, Pulses: Pulses are 2+ in right radial artery and left radial artery. Heart sounds: normal, normal S1and S2, no S3 or S4, no murmur, no rub, no gallop, Edema: 1+ edema to level of left ankle, left foot, right ankle and right foot. 17:18 Respiratory: the patient does not display signs of respiratory distress, Respirations: tachypnea, that is mild, Breath sounds: rales, that are mild, are located in both bases, wheezing: expiratory that is mild, is heard in the left posterior lower lobe, right posterior middle lobe and right posterior lower lobe. Vital Signs: 13:21 BP 163 / 95; Pulse 109; Resp 20; Temp 97.5(O); Pulse Ox 98% on R/A; Weight 81.65 kg; fisher Height 5 ft. 1 in. (154.94 cm); 14:58 BP 154 / 93; Pulse 108; Resp 20; Pulse Ox 98% on R/A; fisher 15:52 BP 144 / 71; Pulse 107; Resp 20; Pulse Ox 97% on R/A; fisher 19:00 BP 147 / 88; Pulse 66; Resp 18; Pulse Ox 100% on R/A; mk 20:00 BP 165 / 88; Pulse 73; Resp 18; Pulse Ox 98% on R/A; mk 06/15 06:30 BP 151 / 79; Pulse 99; Resp 18; Pulse Ox 98% on R/A; mk 06/14 13:21 Body Mass Index 34.01 (81.65 kg, 154.94 cm) fisher Hiram Coma Score: 06/14 19:00 Eye Response: spontaneous(4). Verbal Response: oriented(5). Motor Response: obeys mk commands(6). Total: 15. 20:00 Eye Response: spontaneous(4). Verbal Response: oriented(5). Motor Response: obeys mk commands(6). Total: 15. 06/15 06:30 Eye Response: spontaneous(4). Verbal Response: oriented(5). Motor Response: obeys mk commands(6). Total: 15. MDM: 06/14 13:25 Patient medically screened. [facility] 17:18 Data reviewed: vital signs, nurses notes, lab test result(s), EKG, radiologic studies, jr plain films. Data interpreted: Pulse oximetry: on room air is 95 %. Interpretation: acceptable. Counseling: I had a detailed discussion with the patient and/or guardian regarding: the historical points, exam findings, and any diagnostic results supporting the discharge/admit diagnosis, lab results, radiology results, the need for further work-up and treatment in the hospital. 06/14 13:25 Order name: Basic Metabolic Panel [facility] 06/14 13:25 Order name: CBC with Diff [facility] 06/14 13:25 Order name: LFT's [facility] 06/14 13:25 Order name: Magnesium [facility] 06/14 13:25 Order name: NT PRO-BNP; Complete Time: 16:00 [facility] 06/14 13:25 Order name: PT-INR; Complete Time: 15:36 [facility] 06/14 13:25 Order name: Troponin (emerg Dept Use Only); Complete Time: 16:00 [facility] 06/14 13:25 Order name: Basic Metabolic Panel; Complete Time: 16:00 [facility] 06/14 13:26 Order name: Liver (Hepatic) Function; Complete Time: 16:00 [facility] 06/14 13:26 Order name: Magnesium; Complete Time: 16:00 [facility] 06/14 13:26 Order name: CBC with Automated Diff; Complete Time: 15:36 [facility] 06/14 13:43 Order name: COVID-19 SARS RT PCR (Document "Date of Onset" if Symptomatic) [facility] 06/14 13:44 Order name: SARS-COV-2 RT PCR; Complete Time: 15:36 [facility] 06/14 17:45 Order name: Comprehensive Metabolic Panel [facility] 06/14 13:25 Order name: XRAY Chest (1 view); Complete Time: 14:27 [facility] 06/14 17:45 Order name: Echo with Doppler [facility] 06/14 17:45 Order name: Comprehensive Metabolic Panel [facility] 06/14 17:45 Order name: Magnesium [facility] 06/14 17:45 Order name: Magnesium [facility] 06/14 17:45 Order name: NT PRO-BNP [facility] 06/14 17:45 Order name: NT PRO-BNP [facility] 06/14 17:45 Order name: Phosphorus [facility] 06/14 17:45 Order name: Phosphorus [facility] 06/14 17:45 Order name: Troponin I [facility] 06/14 17:45 Order name: Troponin I [facility] 06/14 17:45 Order name: Troponin I [facility] 06/14 17:46 Order name: CBC with Automated Diff [facility] 06/14 17:46 Order name: CBC with Automated Diff [facility] 06/14 13:21 Order name: EKG - Nurse/Tech; Complete Time: 13:25 06/14 13:21 Order name: EKG; Complete Time: 13:22 06/14 13:25 Order name: Cardiac monitoring; Complete Time: 13:30 [facility] 06/14 13:25 Order name: IV Saline Lock; Complete Time: 15:08 [facility] 06/14 13:25 Order name: Labs collected and sent; Complete Time: 15:08 [facility] 06/14 13:25 Order name: O2 Per Protocol; Complete Time: 15:08 [facility] 06/14 13:25 Order name: O2 Sat Monitoring; Complete Time: 15:08 [facility] 06/14 17:45 Order name: CONS Physician Consult [facility] 06/14 17:45 Order name: Heart Healthy EDMS Administered Medications: 14:21 Drug: SOLU-Medrol (methylPrednisoLONE) 125 mg Route: IVP; Site: left forearm; fisher 14:21 Follow up: Response: No adverse reaction fisher 14:21 Drug: Albuterol - atroVENT (ipratropium) (3:1) (2.5 mg - 0.5 mg) 3 ml Route: Nebulizer; fisher 14:21 Follow up: Response: No adverse reaction fisher 15:04 Drug: Ativan (LORazepam) 0.5 mg Route: IVP; Site: left forearm; fisher 15:05 Follow up: Response: No adverse reaction fisher 15:31 Drug: Lasix (furosemide) 60 mg Route: IVP; Site: left forearm; fisher 15:34 Follow up: Response: No adverse reaction fisher 16:22 Drug: Lovenox (enoxaparin) 1 mg/kg Route: Sub-Q; Site: left lower abdomen; fisher 17:07 Follow up: Response: No adverse reaction fisher Disposition: 06/15 07:07 Co-signature as Attending Physician, Reinaldo Nascimento MD I agree with the assessment and rn plan of care. Attestation: The patient's history, exam findings, diagnostics, and a summary of any interventions or procedures was reviewed in detail with Leroy BALDERAS. Disposition Summary: 06/14/21 16:18 Hospitalization Ordered Hospitalization Status: Inpatient Admission [facility] Provider: Wilma Valdovinos Location: Telemetry/MedSur (Inpatient) [facility] Condition: Stable jr8 Problem: new jr8 Symptoms: have improved jr8 Bed/Room Type: Standard [facility] Room Assignment: 209(06/14/21 20:38) cg Diagnosis - Acute systolic (congestive) heart failure jr8 - Subsequent non-ST elevation (NSTEMI) myocardial infarction jr8 Forms: - Medication Reconciliation Form jr8 - SBAR form jr8 Signatures: Dispatcher [employer] EDReinaldo Markham MD MD rn Roszak, Josh, PA PA jr8 Ruth Grigsby RN RN cg Au-Stager, Heather, RN RN ha Corrections: (The following items were deleted from the chart) 06/14 20:38 16:18 jr8 cg
[2021-06-14] MEDS ORDERED: ENOXAPARIN 80 MG/0.8 ML SQ ONE (16:24)
[2021-06-14] MEDS ORDERED: ACETAMINOPHEN 500 MG TAB PO PRN (17:40)
[2021-06-14] MEDS: ENOXAPARIN 40 MG/0.4 ML SQ SCH (18:00)
--- NOTE | 2021-06-14 19:03 | P.HP ---
Certification for Inpatient Patient admitted to: Inpatient With expected LOS: >2 Midnights Patient will require the following post-hospital care: None Practitioner: I am a practitioner with admitting privileges, knowledge of patient current condition, hospital course, and medical plan of care. Services: Services provided to patient in accordance with Admission requirements found in Title 42 Section 412.3 of the Code of Federal Regulations Patient History Date of Service: 06/14/21 Reason for admission: Dyspnea; acute CHF exacerbation History of Present Illness: Patient is a 71-year-old female who came to the hospital with shortness of breath. She was also lightheaded whenever she stood up. I spoke to the who was at bedside and he states that she really does not get out of bed until he is at home. He is 72 years old and he works during the daytime. He normally does not come home till 4 or 5:00. She is completely dependent on him. She does have dogs that stay with her during the daytime and she occasionally has to walk them. She tends to get lightheaded and has fallen quite a bit. After this last fall he brought her into the hospital for further evaluation. She appears to be orthostatic. We will go ahead and work her up and get an echocardiogram and carotid Doppler and monitor her on telemetry. Allergies clopidogrel [From Plavix] Allergy (Verified 06/15/21 00:18) Hives/Rash latex Allergy (Verified 10/14/20 19:53) Hives/Rash Latex, Natural Rubber Allergy (Verified 10/14/20 19:53) Hives/Rash ticagrelor [From Brilinta] Allergy (Verified 06/14/21 22:58) Hives/Rash Home Medications: Acyclovir 200 mg PO Q4HP PRN 06/15/21 Albuterol Sulfate [Albuterol Sulfate Hfa] 2 puff IH Q6HP PRN 06/15/21 Aspirin [Wily Chewable] 81 mg PO DAILY 06/15/21 Biotin 5,000 mcg PO DAILY 06/15/21 Ciprofloxacin HCl 500 mg PO BID 06/15/21 Diclofenac Sodium [Voltaren] 75 mg PO BID 06/15/21 Dicyclomine [Bentyl] 20 mg PO QIDP PRN 06/15/21 Estradiol 2 mg PO DAILY 06/15/21 Famotidine [Pepcid] 20 mg PO DAILY 06/15/21 Fenofibrate [Tricor] 145 mg PO DAILY 06/15/21 Gabapentin [Neurontin] 300 mg PO BEDTIME 06/15/21 Isosorbide Mononitrate [Isosorbide Mononitrate ER] 30 mg PO DAILY 06/15/21 Lisinopril/Hydrochlorothiazide [Lisinopril-Hctz 20-12.5 mg Tab] 1 each PO BID 06/15/21 Prasugrel HCl 10 mg PO DAILY 06/15/21 Tramadol HCl [Ultram] 50 mg PO BIDP PRN 06/15/21 carisoprodoL [Soma] 350 mg PO Q8HP 06/15/21 gemfibroziL [Gemfibrozil] 600 mg PO BIDAC 06/15/21 hydrOXYzine HCL [Atarax] 100 mg PO BID 06/15/21 hydrOXYzine pamoate [Hydroxyzine Pamoate] 50 mg PO BID 06/15/21 icosapent ethyL [Vascepa 1 gm Cap] 2 gm PO BID 06/15/21 metroNIDAZOLE [Flagyl] 500 mg PO Q8H 06/15/21 predniSONE [Deltasone] 40 mg PO DAILY 06/15/21 - Past Medical/Surgical History Diabetic: No -: lymphoma; Hypertension; Hyperlipidemia; skin cancer; -: GERD -: Hysterectomy -: Acrylic plate in head -: Cataracts - Family History Mother Medical History: Heart disease, Hypertension, Diabetes, Cancer Father Medical History: Heart disease, Hypertension, Diabetes, Cancer - Social History Alcohol use: No CD- Drugs: No Caffeine use: Yes Review of Systems 10-point ROS is otherwise unremarkable Physical Examination - Vital Signs Temperature: 98 F Blood Pressure: 150/80 Pulse: 80 Respirations: 22 Pulse Ox (%): 95 - Physical Exam General: Alert, In no apparent distress, Other (She appears to be confused and scared) HEENT: Atraumatic, PERRLA, Mucous membr. moist/pink, EOMI, Sclerae nonicteric Neck: Supple, 2+ carotid pulse no bruit, No LAD, Without JVD or thyroid abnormality Respiratory: Clear to auscultation bilaterally, Normal air movement Cardiovascular: Regular rate/rhythm, Normal S1 S2, Systolic murmur Gastrointestinal: Normal bowel sounds, Soft and benign, Non-distended, No tenderness Musculoskeletal: No clubbing, No swelling, No tenderness Integumentary: No rashes Neurological: Normal speech, Normal tone, Sensation intact, Cranial nerves 3-12 intact, Normal affect, Abnormal gait (Patient gets lightheaded on standing), Abnormal strength (Patient with generalized weakness in all 4 extremities) Lymphatics: No axilla or inguinal lymphadenopathy - Studies Laboratory Data (last 24 hrs) 06/14/21 15:08: PT 13.9 H, INR 1.21 06/14/21 15:08: WBC 19.70 H D, Hgb 9.9 L, Hct 31.9 L D, Plt Count 432 H D 06/14/21 15:08: Sodium 138, Potassium 4.1, BUN 30 H, Creatinine 1.22, Glucose 117 H, Magnesium 2.0 D, Total Bilirubin 0.4, AST 26, ALT 43, Alkaline Phosphatase 56 Assessment & Plan - Problems (Diagnosis) (1) Dyspnea Current Visit: Yes Status: Acute (2) Acute diastolic CHF (congestive heart failure) Current Visit: Yes Status: Acute (3) Dyslipidemia Onset Date: 08/28/17 Current Visit: No Status: Acute (4) HTN (hypertension) Onset Date: 08/28/17 Current Visit: No Status: Acute (5) Near syncope Current Visit: Yes Status: Acute (6) Orthostatic hypotension Current Visit: Yes Status: Acute (7) History of fall Current Visit: Yes Status: Acute (8) Poor social situation Current Visit: Yes Status: Acute - Plan Plan: 1. Carotid Doppler 2. Echocardiogram 3. Check orthostatic blood pressures 4. Physical therapy consultation 5. Start midodrine 6. Diurese gently 7. Echocardiogram pending along with cardiology consultation 8. Monitor nutritional status 9. May need placement Discharge Plan: Home Plan to discharge in: Greater than 2 days - Advance Directives Does patient have a Living Will: No Does patient have a Durable POA for Healthcare: No - Code Status/Comfort Care Code Status Assessed: Yes Code Status: Full Code Critical Care: No Time Spent Managing PTS Care (In Minutes): 45
[2021-06-14] MEDS ORDERED: HYDRALAZINE HCL 20 MG/ML VIAL IV PRN (23:18)
[2021-06-14] MEDS: LORAZEPAM 0.5 MG TABLET PO PRN (23:45)
[2021-06-14] MEDS: FUROSEMIDE 40 MG/4 ML VIAL IV SCH (23:46)
[2021-06-15 04:07] LABS: Absolute Lymphocytes (CBC) 2.1 K/uL (0.7-4.9); Hematocrit 32.4 % (36.0-45.0); Lymphocytes % 16.8 % (15.3-44.8); MPV 7.1 fL (7.6-11.3); RBC Red Blood Cell Count 4.25 M/uL (3.86-4.86)
[2021-06-15 04:32] LABS: Albumin 2.9 g/dL (3.4-5.0); Bilirubin Total 0.4 mg/dL (0.2-1.0); Magnesium 1.9 mg/dL (1.8-2.4); Potassium 3.5 mmol/L (3.5-5.1); Protein, Total 7.9 g/dL (6.4-8.2)
[2021-06-15 04:47] LABS: Blood Morphology Comment NOT SEEN (NOT SEEN); Platelet Estimate ADEQ
[2021-06-15 05:44] LABS: Urine Appearance CLEAR (Clear); Urine Bilirubin NEGATIVE (Negative); Urine Blood NEGATIVE (Negative); Urine Color YELLOW (Yellow); Urine Glucose NEGATIVE (Negative); Urine Protein NEGATIVE (Negative); Urine Urobilinogen 0.2 mg/dL (0.2-1.0); Urine pH 6.5 (5.0-7.0)
[2021-06-15 05:45] LABS: Urine Microscopic Reflex NO UMIC
[2021-06-15 05:57] VITALS: BMI 32.5
[2021-06-15] MEDS ORDERED: POTASSIUM 25 MEQ EFFERV TAB PO ONE (06:00)
[2021-06-15] MEDS ORDERED: CLOPIDOGREL 75 MG TABLET PO SCH (09:00)
[2021-06-15] MEDS: VALSARTAN 80 MG TAB PO SCH (09:06)
[2021-06-15] MEDS: METOPROLOL TAR 50 MG TAB PO SCH ×2 (09:07→20:08)
[2021-06-15] MEDS: ASPIRIN EC 81 MG TAB PO SCH (09:07)
[2021-06-15] MEDS: FUROSEMIDE 40 MG/4 ML VIAL IV SCH (09:08)
[2021-06-15] MEDS: ENOXAPARIN 40 MG/0.4 ML SQ SCH (09:08)
--- NOTE | 2021-06-15 09:44 | CON ---
Date of Consultation: 06/15/2021 Reason For Consultation: Congestive heart failure. History Of Present Illness: Ms. Vela is 71. She is a patient of Dr. Devon Godwin, has had stent i n the past, has had recent negative stress test in the past, was told that she had mild congestive he art failure in the past as well. She also has a history of lymphoma, hypertension, dyslipidemia, cam e in with shortness of breath, was found on chest x-ray to have volume overload. Her troponin was 0. 18. Her BNP was 4926. Her creatinine 1.43. She was anemic with a hemoglobin of 5.9. EKG nonspecif ic. No chest pain reported. Denied any nausea, vomiting, diaphoresis. Has had PND, orthopnea, peda l edema. Denied any palpitation or syncope. Denied any fever or chills. Past Medical History: As stated above. Allergies: SHE IS ALLERGIC TO TYLENOL AND CODEINE. Review of Systems: Negative. Social History: Negative. Family History: Noncontributory. Medications: At home include Prozac, Prevacid, Premarin, Lopid, lisinopril, Imdur, and aspirin. Physical Examination: Vital Signs: Stable. Afebrile. Sinus rhythm. HEENT: Negative. Neck: Supple with no bruit. Chest: Revealed bilateral rales. Cardiac: Revealed regular rhythm and rate. No murmurs, gallops, or rubs. Abdomen: Benign. Extremities: Revealed no clubbing, cyanosis, or edema. Neurological: She is nonfocal. Skin: Dry and intact. Pulses present bilaterally symmetrically. Diagnostic Data: As stated earlier. Impression And Plan: 1.Acute congestive heart failure, most likely systolic. Echocardiogram is pending. I agree with th e present regimen. She is on IV Lasix 3 times a day right now. When she goes home, she should anne nue her home medications and she should probably be on a low-dose Lasix and we should consider a low- dose beta-mable on her as well. She will follow up with Dr. Godwin. 2.Elevated troponin and BNP secondary to demand ischemia from congestive heart failure. She does no t need a heart catheterization at this point. 3.Renal insufficiency. 4.Anemia. 5.Depression. 6.Gastroesophageal reflux disease. 7.Dyslipidemia, stable. 8.Hypertension, stable. 9.Coronary artery disease, status post percutaneous coronary intervention with recent stress test th at was negative. She will follow up with Dr. Godwin in that regard. 10.History of lymphoma. We will see what her echo shows. Continue present regimen. I will discuss the case further with Dr. Valdovinos. BRYON/DECLAN Voice ID: [id number] Report ID: [id number]
[2021-06-15] MEDS: FUROSEMIDE 20 MG TABLET PO SCH (16:55)
[2021-06-15] MEDS ORDERED: FUROSEMIDE 40 MG/4 ML VIAL IV SCH (18:00)
[2021-06-15] MEDS: MORPHINE 2 MG/ML SYR IV PRN (20:08)
[2021-06-16 05:55] LABS: Potassium 3.8 mmol/L (3.5-5.1)
--- NOTE | 2021-06-16 07:52 | EKG ---
Test Date: 2021-06-14 Test Time: 13:25:27 Supervisor Wrapping Room: STACIE MEASUREMENT RESULTS: Intervals: Rate: 106 ID: [id number] QRSD: 86 QT: 360 QTc: 478 [place]: P: 83 ID: [id number] QRS: 24 T: 64 INTERPRETIVE STATEMENTS: Sinus tachycardia Low voltage QRS Cannot rule out Anterior infarct, age undetermined Abnormal ECG Compared to ECG 06/08/2021 19:41:23 Low QRS voltage now present Myocardial infarct finding now present Sinus rhythm no longer present T-wave abnormality no longer present Electronically Signed On 06-16-21 07:46:11 [employer]ATING [employer]ER by Regis Wall
--- NOTE | 2021-06-16 08:25 | ECHO ---
HEIGHT: 5 ft 1 in WEIGHT: 172 lb 3.2 oz DATE OF STUDY: 06/15/[address]: Wilma Valdovinos MD 2-DIMENSIONAL: YES M.MODE: YES DOPPLER: YES COLOR FLOW: YES TDS: NO PORTABLE: NO DEFINITY: NO BUBBLE STUDY: NO DIAGNOSIS: CONGESTIVE HEART FAILURE CARDIAC HISTORY: CATHERIZATION: YES SURGERY: NO PROSTHETIC VALVE: NO PACEMAKER: NO MEASUREMENTS (cm) DIASTOLIC (NORMALS) SYSTOLIC (NORMALS) IVSd 1.0 (0.6-1.2) LA Diam 2.8 (1.9-4.0) LVEF 45% LVIDd 4.4 (3.5-5.7) LVIDs 3.2 (2.0-3.5) %FS 27% LVPWd 1.1 (0.6-1.2) Ao Diam 2.6 (2.0-3.7) 2 DIMENSIONAL ASSESSMENT: RIGHT ATRIUM: NORMAL LEFT ATRIUM: NORMAL RIGHT VENTRICLE: NORMAL LEFT VENTRICLE: NORMAL TRICUSPID VALVE: NORMAL MITRAL VALVE: NORMAL PULMONIC VALVE: NORMAL AORTIC VALVE: NORMAL PERICARDIAL EFFUSION: NONE AORTIC ROOT: NORMAL LEFT VENTRICULAR WALL MOTION: ANTERIOR HYPOKINESIS. DOPPLER/COLOR FLOW: MILD TRICUSPID REGURGITATION. COMMENTS: ANTERIOR HYPOKINESIS. EJECTION FRACTION 45%. MILD TRICUSPID REGURGITATION. TECHNOLOGIST: JOANIE FONTANA
[2021-06-16] MEDS: METOPROLOL TAR 50 MG TAB PO SCH (09:00)
[2021-06-16] MEDS ORDERED: POTASSIUM CL SA 10 MEQ TAB PO ONE (09:00)
[2021-06-16] MEDS: VALSARTAN 80 MG TAB PO SCH (09:00)
[2021-06-16] MEDS: FUROSEMIDE 20 MG TABLET PO SCH (09:00)
[2021-06-16] MEDS: ASPIRIN EC 81 MG TAB PO SCH (09:38)
[2021-06-16] MEDS: ENOXAPARIN 30 MG/0.3 ML SQ SCH (10:10)
[2021-06-16] MEDS: MIDODRINE HCL 5 MG TABLET PO SCH ×2 (13:16→20:06)
[2021-06-16] MEDS: NA CHLORIDE 0.9% 1,000 ML IV SCH (13:16)
[2021-06-16] MEDS: ONDANSETRON 4 MG/2 ML VIAL IV PRN (20:03)
[2021-06-17] MEDS: LORAZEPAM 0.5 MG TABLET PO PRN (00:51)
[2021-06-17 05:48] LABS: Absolute Lymphocytes (CBC) 2.7 K/uL (0.7-4.9); Hematocrit 31.4 % (36.0-45.0); MPV 7.2 fL (7.6-11.3); RBC Red Blood Cell Count 4.06 M/uL (3.86-4.86)
[2021-06-17 06:13] LABS: Magnesium 1.9 mg/dL (1.8-2.4); Potassium 3.6 mmol/L (3.5-5.1)
[2021-06-17 06:14] LABS: Thyroid Stimulating Hormone 5.82 uIU/mL (0.360-3.740)
[2021-06-17] MEDS: VALSARTAN 80 MG TAB PO SCH (08:51)
[2021-06-17] MEDS: MIDODRINE HCL 5 MG TABLET PO SCH ×3 (09:00→21:29)
[2021-06-17] MEDS: ASPIRIN EC 81 MG TAB PO SCH (09:00)
[2021-06-17] MEDS ORDERED: POTASSIUM CL SA 10 MEQ TAB PO ONE (09:00)
[2021-06-17] MEDS: NA CHLORIDE 0.9% 1,000 ML IV SCH (09:00)
[2021-06-17] MEDS: ENOXAPARIN 30 MG/0.3 ML SQ SCH (09:01)
[2021-06-17] MEDS: ONDANSETRON 4 MG/2 ML VIAL IV PRN (16:23)
[2021-06-17] MEDS ORDERED: DOCUSATE NA/SENNA CONC 1 TAB PO PRN (18:50)
[2021-06-17] MEDS: MORPHINE 2 MG/ML SYR IV PRN (21:34)
[2021-06-18] MEDS: NA CHLORIDE 0.9% 1,000 ML IV SCH (05:15)
[2021-06-18 06:10] LABS: Potassium 4.2 mmol/L (3.5-5.1)
--- NOTE | 2021-06-18 08:19 | P.PN ---
Date of Service: 06/15/21 Subjective: Patient continues to be lightheaded. We will continue encouraging her to get out of bed and waiting for physical therapy Physical Examination - Vital Signs Reviewed - Physical Exam General: Alert, In no apparent distress, Other (She appears to be confused and scared) Respiratory: Clear to auscultation bilaterally, Normal air movement Cardiovascular: Regular rate/rhythm, Normal S1 S2, Systolic murmur Gastrointestinal: Normal bowel sounds, Soft and benign, Non-distended, No tenderness Neurological: Normal speech, Normal tone, Sensation intact, Cranial nerves 3-12 intact, Normal affect, Abnormal gait (Patient gets lightheaded on standing), Abnormal strength (Patient with generalized weakness in all 4 extremities) Assessment & Plan - Problems (Diagnosis) (1) Dyspnea Current Visit: Yes Status: Acute (2) Acute diastolic CHF (congestive heart failure) Current Visit: Yes Status: Acute (3) Dyslipidemia Onset Date: 08/28/17 Current Visit: No Status: Acute (4) HTN (hypertension) Onset Date: 08/28/17 Current Visit: No Status: Acute (5) Near syncope Current Visit: Yes Status: Acute (6) Orthostatic hypotension Current Visit: Yes Status: Acute (7) History of fall Current Visit: Yes Status: Acute (8) Poor social situation Current Visit: Yes Status: Acute - Plan Continue with plan of care as mentioned below: 1. Carotid Doppler-no abnormality 2. Echocardiogram-anterior hypokinesis with an ejection fraction of 45% 3. Monitor hemodynamics closely; continue gentle diuresing 4. Physical therapy consultation appreciated 5. Start midodrine 6. Diurese gently 7. Appreciate cardiology consultation; no aggressive interventions at this time 8. Monitor nutritional status 9. May need placement
--- NOTE | 2021-06-18 08:20 | P.PN ---
Date of Service: 06/16/21 Subjective: Patient doing better. Encouraging her to get out of bed. We did rehydrate her and we will recheck her kidney numbers. Physical Examination - Vital Signs Reviewed - Physical Exam General: Alert, In no apparent distress, Other (She appears to be confused and scared) Respiratory: Clear to auscultation bilaterally, Normal air movement Cardiovascular: Regular rate/rhythm, Normal S1 S2, Systolic murmur Gastrointestinal: Normal bowel sounds, Soft and benign, Non-distended, No tenderness Neurological: Normal speech, Normal tone, Sensation intact, Cranial nerves 3-12 intact, Normal affect, Abnormal gait (Patient gets lightheaded on standing), Abnormal strength (Patient with generalized weakness in all 4 extremities) Assessment & Plan - Problems (Diagnosis) (1) Dyspnea Current Visit: Yes Status: Acute (2) Acute diastolic CHF (congestive heart failure) Current Visit: Yes Status: Acute (3) Dyslipidemia Onset Date: 08/28/17 Current Visit: No Status: Acute (4) HTN (hypertension) Onset Date: 08/28/17 Current Visit: No Status: Acute (5) Near syncope Current Visit: Yes Status: Acute (6) Orthostatic hypotension Current Visit: Yes Status: Acute (7) History of fall Current Visit: Yes Status: Acute (8) Poor social situation Current Visit: Yes Status: Acute - Plan Continue with plan of care as mentioned below/rehydrated and repeat kidney numbers. Her strength has improved: 1. Carotid Doppler-no abnormality 2. Echocardiogram-anterior hypokinesis with an ejection fraction of 45% 3. Monitor hemodynamics closely; continue gentle diuresing 4. Physical therapy consultation appreciated 5. Started midodrine; orthostatics has improved 6. We will continue to diurese gently with oral diuretics going forward 7. Appreciate cardiology consultation; no aggressive interventions at this time 8. Monitor nutritional status 9. May need placement
--- NOTE | 2021-06-18 08:22 | P.PN ---
Date of Service: 06/18/21 Subjective: Awaiting for placement at [facility] Physical Examination - Vital Signs Reviewed - Physical Exam General: Alert, In no apparent distress, Other (She appears to be confused and scared) Respiratory: Clear to auscultation bilaterally, Normal air movement Cardiovascular: Regular rate/rhythm, Normal S1 S2, Systolic murmur Gastrointestinal: Normal bowel sounds, Soft and benign, Non-distended, No tenderness Neurological: Normal speech, Normal tone, Sensation intact, Cranial nerves 3-12 intact, Normal affect, Abnormal gait (Patient gets lightheaded on standing), Abnormal strength (Patient with generalized weakness in all 4 extremities) Assessment & Plan - Problems (Diagnosis) (1) Dyspnea Current Visit: Yes Status: Acute (2) Acute diastolic CHF (congestive heart failure) Current Visit: Yes Status: Acute (3) Dyslipidemia Onset Date: 08/28/17 Current Visit: No Status: Acute (4) HTN (hypertension) Onset Date: 08/28/17 Current Visit: No Status: Acute (5) Near syncope Current Visit: Yes Status: Acute (6) Orthostatic hypotension Current Visit: Yes Status: Acute (7) History of fall Current Visit: Yes Status: Acute (8) Poor social situation Current Visit: Yes Status: Acute - Plan Continue with plan of care as mentioned below/rehydrated and repeat kidney numbers. Her strength has improved: 1. Carotid Doppler-no abnormality 2. Echocardiogram-anterior hypokinesis with an ejection fraction of 45% 3. Monitor hemodynamics closely; continue gentle diuresing 4. Physical therapy consultation appreciated 5. Started midodrine; orthostatics has improved 6. We will continue to diurese gently with oral diuretics going forward 7. Appreciate cardiology consultation; no aggressive interventions at this time 8. Monitor nutritional status 9. May need placement
--- NOTE | 2021-06-18 08:22 | P.PN ---
Date of Service: 06/17/21 Subjective: Patient continues to do well. Awaiting for placement. Physical Examination - Vital Signs Reviewed - Physical Exam General: Alert, In no apparent distress, Other (She appears to be confused and scared) Respiratory: Clear to auscultation bilaterally, Normal air movement Cardiovascular: Regular rate/rhythm, Normal S1 S2, Systolic murmur Gastrointestinal: Normal bowel sounds, Soft and benign, Non-distended, No tenderness Neurological: Normal speech, Normal tone, Sensation intact, Cranial nerves 3-12 intact, Normal affect, Abnormal gait (Patient gets lightheaded on standing), Abnormal strength (Patient with generalized weakness in all 4 extremities) Assessment & Plan - Problems (Diagnosis) (1) Dyspnea Current Visit: Yes Status: Acute (2) Acute diastolic CHF (congestive heart failure) Current Visit: Yes Status: Acute (3) Dyslipidemia Onset Date: 08/28/17 Current Visit: No Status: Acute (4) HTN (hypertension) Onset Date: 08/28/17 Current Visit: No Status: Acute (5) Near syncope Current Visit: Yes Status: Acute (6) Orthostatic hypotension Current Visit: Yes Status: Acute (7) History of fall Current Visit: Yes Status: Acute (8) Poor social situation Current Visit: Yes Status: Acute - Plan Continue with plan of care as mentioned below/rehydrated and repeat kidney numbers. Her strength has improved: 1. Carotid Doppler-no abnormality 2. Echocardiogram-anterior hypokinesis with an ejection fraction of 45% 3. Monitor hemodynamics closely; continue gentle diuresing 4. Physical therapy consultation appreciated 5. Started midodrine; orthostatics has improved 6. We will continue to diurese gently with oral diuretics going forward 7. Appreciate cardiology consultation; no aggressive interventions at this time 8. Monitor nutritional status 9. May need placement
[2021-06-18] MEDS: VALSARTAN 80 MG TAB PO SCH (09:00)
[2021-06-18] MEDS: ASPIRIN EC 81 MG TAB PO SCH (09:00)
[2021-06-18] MEDS: MIDODRINE HCL 5 MG TABLET PO SCH ×3 (09:00→20:34)
[2021-06-18] MEDS: FUROSEMIDE 20 MG TABLET PO SCH (09:00)
[2021-06-18] MEDS: ENOXAPARIN 40 MG/0.4 ML SQ SCH (09:04)
--- NOTE | 2021-06-18 15:55 | RAD REPORT ---
EXAM DESCRIPTION: USCarotid Artery Bilateral06/18/2021 3:35 pm CLINICAL HISTORY: syncope COMPARISON: None FINDINGS: The velocity of the right internal carotid artery equals 110 cm/sec. The right ICA/CCA rat io 2.2 The velocity of the left internal carotid artery equals 93 cm/sec. The left ICA/CCA ratio 1.7 Mild plaque is present within the carotid arteries. The vertebral arteries demonstrate antegrade flow IMPRESSION: Mild plaque within the carotid arteries without evidence of a hemodynamically significan t stenosis NASCET criteria used. Mild 0-49% stenosis Moderate 50-69% stenosis Severe 70-99% stenosis
[2021-06-19 00:32] VITALS: O2SAT 97
[2021-06-19] MEDS: NA CHLORIDE 0.9% 1,000 ML IV SCH (05:38)
[2021-06-19] MEDS: VALSARTAN 80 MG TAB PO SCH (08:04)
[2021-06-19] MEDS: ENOXAPARIN 40 MG/0.4 ML SQ SCH (09:00)
[2021-06-19 09:04] VITALS: BP 150/60; TEMP 97.5
[2021-06-19] MEDS: MIDODRINE HCL 5 MG TABLET PO SCH (09:36)
[2021-06-19] MEDS: FUROSEMIDE 20 MG TABLET PO SCH (09:36)
[2021-06-19] MEDS: ASPIRIN EC 81 MG TAB PO SCH (09:36)
--- NOTE | 2021-06-21 01:44 | P.DS ---
Discharge Date: 06/19/21 Disposition: ROUTINE DISCHARGE Discharge Condition: GOOD Reason for Admission: Dyspnea; acute CHF exacerbation - Problems (1) Dyspnea Status: Acute (2) Acute diastolic CHF (congestive heart failure) Status: Acute (3) Dyslipidemia Onset Date: 08/28/17 Status: Acute (4) HTN (hypertension) Onset Date: 08/28/17 Status: Acute (5) Near syncope Status: Acute (6) Orthostatic hypotension Status: Acute (7) History of fall Status: Acute (8) Poor social situation Status: Acute Brief History of Present Illness: Patient is a 71-year-old female who came to the hospital with shortness of breath. She was also lightheaded whenever she stood up. I spoke to the who was at bedside and he states that she really does not get out of bed until he is at home. He is 72 years old and he works during the daytime. He normally does not come home till 4 or 5:00. She is completely dependent on him. She does have dogs that stay with her during the daytime and she occasionally has to walk them. She tends to get lightheaded and has fallen quite a bit. After this last fall he brought her into the hospital for further evaluation. She appears to be orthostatic. We will go ahead and work her up and get an echocardiogram and carotid Doppler and monitor her on telemetry. Hospital Course: Patient clinically doing well. Plan to discharge home. Family is going to go to rehab as an outpatient once accepted. Vital Signs/Physical Exam: Temp Pulse Resp BP Pulse Ox 97.5 F 77 18 150/60 H 98 06/19/21 08:00 06/19/21 08:00 06/19/21 08:00 06/19/21 08:00 06/19/21 08:00 General: Alert, In no apparent distress, Oriented x3 Laboratory Data at Discharge: WBC 8.50 K/uL (4.3-10.9) D 06/17/21 05:30 Hgb 9.9 g/dL (12.0-15.0) L 06/17/21 05:30 Hct 31.4 % (36.0-45.0) L 06/17/21 05:30 Plt Count 400 K/uL (152-406) 06/17/21 05:30 PT 13.9 SECONDS (9.5-12.5) H 06/14/21 15:08 INR 1.21 06/14/21 15:08 Sodium 140 mmol/L (136-145) 06/18/21 05:15 Potassium 4.2 mmol/L (3.5-5.1) 06/18/21 05:15 BUN 29 mg/dL (7-18) H 06/18/21 05:15 Creatinine 0.94 mg/dL (0.55-1.3) 06/18/21 05:15 Glucose 97 mg/dL (74-106) 06/18/21 05:15 Phosphorus 5.0 mg/dL (2.5-4.9) H 06/15/21 03:43 Magnesium 1.9 mg/dL (1.8-2.4) 06/17/21 05:30 Total Bilirubin 0.4 mg/dL (0.2-1.0) 06/15/21 03:43 AST 21 U/L (15-37) 06/15/21 03:43 ALT 41 U/L (12-78) 06/15/21 03:43 Alkaline Phosphatase 56 U/L (45-117) 06/15/21 03:43 Troponin I Cancelled 06/15/21 03:43 Home Medications: Acyclovir 200 mg PO Q4HP PRN 06/15/21 Albuterol Sulfate [Albuterol Sulfate Hfa] 2 puff IH Q6HP PRN 06/15/21 Aspirin [Wily Chewable Aspirin] 81 mg PO DAILY 06/15/21 Biotin 5,000 mcg PO DAILY 06/15/21 Ciprofloxacin HCl 500 mg PO BID 06/15/21 Diclofenac Sodium [Voltaren] 75 mg PO BID 06/15/21 Dicyclomine [Bentyl*] 20 mg PO QIDP PRN 06/15/21 Estradiol 2 mg PO DAILY 06/15/21 Famotidine [Pepcid*] 20 mg PO DAILY 06/15/21 Fenofibrate [Tricor*] 145 mg PO DAILY 06/15/21 Gabapentin [Neurontin*] 300 mg PO BEDTIME 06/15/21 Prasugrel HCl 10 mg PO DAILY 06/15/21 carisoprodoL [Soma*] 350 mg PO Q8HP 06/15/21 gemfibroziL [Gemfibrozil] 600 mg PO BIDAC 06/15/21 hydrOXYzine HCL [Atarax] 100 mg PO BID 06/15/21 hydrOXYzine pamoate [Hydroxyzine Pamoate] 50 mg PO BID 06/15/21 icosapent ethyL [Vascepa 1 gm Cap] 2 gm PO BID 06/15/21 Docusate/Senna [Senokot-S*] 2 tab PO BEDTIME PRN #60 tab 06/19/21 Furosemide [Lasix*] 20 mg PO DAILY #30 tab 06/19/21 Midodrine HCl [Proamatine*] 5 mg PO TID #90 tab 06/19/21 Valsartan [Diovan] 80 mg PO DAILY #30 tablet 06/19/21 New Medications: Valsartan [Diovan] 80 mg PO DAILY #30 tablet Furosemide [Lasix*] 20 mg PO DAILY #30 tab Midodrine HCl [Proamatine*] 5 mg PO TID #90 tab Docusate/Senna [Senokot-S*] 2 tab PO BEDTIME PRN #60 tab PRN Reason: Constipation Physician Discharge Instructions: -DC IV and DC home -Follow-up with PCP in 1 to 2 weeks -Follow-up with Cardiology in 1 to 2 weeks -Please call Dr. Valdovinos at [phone] if any questions regarding hospital stay -Please call nursing station at [phone] if any nursing or medication questions -Return to the emergency room if symptoms worsen Diet: AHA Activity: Fall precautions Followup: Elpidio Burr MD [Primary Care Provider] - (Call to schedule appointment) Time spent managing pt's care (in minutes): 35
== END 2021-06-19 11:30 | disposition home or self-care (01) | DRG 291 ==
LOC: ER 13:15 → ERHOLD 17:48 → 2ND 21:49
PROVIDERS: ADMIT Hospitalist; ATTEND Hospitalist
DX: I11.0 Hypertensive heart disease with heart failure (principal); I50.31 Acute diastolic (congestive) heart failure; E78.5 Hyperlipidemia, unspecified; I95.1 Orthostatic hypotension; Z60.8 Other problems related to social environment; Z91.81 History of falling; R01.1 Cardiac murmur, unspecified; N28.9 Disorder of kidney and ureter, unspecified; Z85.72 Personal history of non-Hodgkin lymphomas; Z91.040 Latex allergy status; Z20.822 Contact with and (suspected) exposure to COVID-19
CPT/HCPCS: 36415; 71045; 80048; 80053; 80076; 81003; 82533; 83735; 83880; 84100; 84145; 84439; 84443; 84484; 85025; 85610; 93005; 93306; 93880; 94640; 96372; 96374; 96375; 97116; 97161; 97164; 97530; 99285; J1650; J1940; J2270; J2405; J2930; J7030; U0003

== ENCOUNTER 2022-05-26 08:58 | Emergency (ER) | payer OTHER ==
--- OUTSIDE RECORDS SUMMARY | 2022-05-26 09:02 | XMS REPORT | Clinical Summary ---
:1950 Author Organization [facility] MD 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 Bilateral trochanteric bursitis 06/17/2016 Surgical History Surgery Date Site/Laterality Comments APPENDECTOMY COLONOSCOPY MASTECTOMY breast reconstru cted after implant removal EXPLORATORY LAPAROTOMY BRAIN SURGERY HERNIA REPAIR BREAST LUMPECTOMY HYSTERECTOMY UPPER GASTROINTESTINAL ENDOSCOPY Medical History Medical History Date Comments Hypertension 2009 Hyperlipidemia 2009 Irregular heart beat 2010 Heart valve disorder 2010 Neuropathy 2015 arm, wrist, shoulder Chronic fatigue syndrome 2006 Nodule in breast several times benign, dense breast Cyst of breast several times benign Mastitis reoccurring painful breast area, rightone Mammoplasty Silicone breast impl ants 1974, but, removed in 2006 Chronic bronchitis [...] Medical History Relation Name Comments Diabetes Brother Sixto Del Valle Gilbert Coronary heart disease (CHD) Father Bennie Mcdowell Hypertension Father Bennie Mcdowell -Brain cancer Maternal Aunt 1 Marisel Katie -Gastrointestinal (Esophagus, Liver, Maternal Aunt 2 Elana Guido ms Bile Duct, Stomach, Pancreas, Colon, Rectum, Anus -Leukemia Maternal Aunt 3 Barbara Griffin -Gynecology (Ovary, Endometrial, Mother Yamini Ivy Cervix, Vagina) -Thoracic or Lung Mother Yamini Ivy Coronary heart disease (CHD) Mother Yamini Ivy Hypertension Mother Yamini Ivy -Genitourinary (Bladder, Kidney, Sister 1 Bharti Lizarraga Prostate, Testicle) Stroke Sister 2 Rosa Hunt Relation Name Status Comments Brother Sixto Del Valle Father Bennie Mcdowell Maternal Aunt 1 Marisel Katie Maternal Aunt 2 Elana Yun Maternal Aunt 3 Barbara Griffin Mother Yamini Ivy Sister 1 Bharti Lizarraga Sister 2 Rosa Hunt Social History Tobacco Use Types Packs/Day Years Used Date Smoking Tobacco: Former Cigarettes 06/1968 - 06/05/1978 Smokeless Tobacco: Never Alcohol Use Standard Drinks/Week Comments No 0 (1 standard drink = 0.6 oz pure alcoho l) Sex Assigned at Date Recorded Not on file Obstetrics History Para Term AB IAB SAB Ectopic Multiple Living Live Births 2 Last Filed Vital Signs Not on file Plan of Treatment Health Maintenance Due Date Last Done Comments COVID-19 Vaccination (#1) 1950 Results Not on fileafter 05/26/2021 Insurance Payer Benefit Plan Subscriber ID Effective Phone Address Typ e / Group Dates MEDICARE MEDICARE PART [id number] 2017-Prese [phone] [facility] Medicare A nt 28 SOLUTIONS [address] [place] [address] [employer] [place] PPO [id number] 2014-Prese [address] [place] POS nt [id number] [place] [address] Care Teams Psychiatry Physician Relationship Specialty Start Date End Date Elpidio Burr PCP - External Referring 06/15/16 Elpidio Burr PCP - External Follow Up 06/15/16 Devon Rivers, [place] - External Follow Up Cardiology 06/15/16 MD Sharma [id number] [id number] Yanick Shoemaker PCP - External Follow Up General Surgery 06/15/16 MD Sherrie Trivedi Lito Kramer, PCP - General Lymphoma and Myeloma 08/14/20 [address] [place], [place] [id number]
--- OUTSIDE RECORDS SUMMARY | 2022-05-26 09:09 | XMS REPORT | Continuity of Care Document ---
:1950 Author Organization [facility] t Address [address] [place] [address] Dr. Patel [address] [place] [address] Care Team Providers Name Role Phone CHANO HUSSEIN Primary Care Physician Unavailable Davion Prather Rahil Attending Clinician Unavailable [id number] Attending Clinician Unavailable Ben Godwin Attending Clinician Unavailable Ben Godwin Attending Clinician Unavailable Cheyenne_Byannette Attending Clinician Unavailable SIM DIGGS Attending Clinician Unavailable JL LOPEZ Attending Clinician Unavailable Marisa Nolen RN Attending Clinician Unavailable SHANT YIP Attending Clinician Unavailable Doctor Unassigned, [place] Attending Clinician Unavailable BEN GODWIN Attending Clinician Unavailable KOBY SHAH Attending Clinician Unavailable MONSERRAT MANTILLA Attending Clinician Unavailable LEANNA SOLIZ Attending Clinician Unavailable Jl Lopez MD Attending Clinician MD BRENTON Attending Clinician Unavailable MAGALY SANTOS Attending Clinician Unavailable ERASTO SPRINGER Attending Clinician Unavailable LAB47 Attending Clinician Unavailable MECCA ANDRADE Attending Clinician Unavailable LAB90 Attending Clinician Unavailable Monserrat Mantilla MD Attending Clinician [phone] Jason Willett RN Attending Clinician Unavailable Only, George Db Test Attending Clinician Unavailable Leanna Soliz MD Attending Clinician MARGARITO OLIVAREZ Attending Clinician Unavailable IHDE_G Attending Clinician Unavailable GLADIS MENON Attending Clinician Unavailable BRENDA BOBBY Attending Clinician Unavailable SADI QUEEN Attending Clinician Unavailable Tee Cifuentes Attending Clinician Yanick Shoemaker Attending Clinician CAMILLE WING Attending Clinician Unavailable KRYS BARTON Attending Clinician Unavailable NORRIS SANCHEZ Attending Clinician Unavailable CELIA HUSTON Attending Clinician Unavailable SHAKEEL ADAMS Attending Clinician Unavailable WILFRED DAO Attending Clinician Unavailable Davion Prather Rahil Admitting Clinician Unavailable [id number] Admitting Clinician Unavailable Ben Godwin Admitting Clinician Unavailable A_Byrd Admitting Clinician Unavailable IHDE_G Admitting Clinician Unavailable Tee Cifuentes Admitting Clinician Payers Payer Name Policy Type Policy Number Effective Date Expiration Date S ource BCTX BCTP [id number] [facility] [id number] BLUE CROSS [id number] 2021 2022 MEDICARE 00:00:00 00:00:00 [place]VAN TAGE - PPO) BCBS 2 [id number] 2019 00:00:00 BLUE CROSS [id number] 2021 MEDICARE 00:00:00 [place] [id number] 2014 [place] (PPO) 00:00:00 Problems Condition Condition Condition Status Onset Resolution Last Treating Co mments Source Name Details Category Date Date Treatment Clinician Date Type 2 Type 2 Problem Active 2021-06 [place] diabetes Diabetes 1-29 da mellitus Mellitus 00:00: Medica l without without 00 Group complicati Complicati on on Pruritic Pruritic Problem Active 2021-06 [place] rash Rash 1-29 da 00:00: Medical 00 Group Pleuritic Pleuritic Problem Active [place] pain Pain 4-28 da 00:00: Medical 00 Group Congestive Congestive Problem Active M [place] heart Heart 2-08 da failure Failure 00:00: Medical 00 Group CAD CAD Condition Active 2020-062021-04-16 Mem oria (coronary (coronary 0-22 17:50:29 l artery artery 00:00: [place] disease) disease) 00 Active 03/26/2021 04/16/2021 [facility] Hyperlipid Hyperlipid Disease Active 2020-06 Tim gunter emia 0-22 Seybold 00:00: 00 Chronic Chronic Disease Active 2020-06 [facility] midline midline 0-22 Seybold low back low back 00:00: pain pain 00 Herpes Herpes Problem Active [place] simplex Simplex [...] Pain in Pain in Problem Active [place] coccyx Coccyx 7-08 da 00:00: Medical 00 Group [...] 00 Group 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 00 MD [facility] Acute Acute Problem Active 2016-06 [place] sciatica [...] Syndrome 00 Group Pruritus Pruritus Disease Active Unive rs 1-20 ity of 00:00: [place] 00 MD [facility] Dermatogra Dermatogra Disease Active U nivers phic phic 1-20 ity of urticaria urticaria 00:[place] [facility] Asteatotic Asteatotic Disease Active U nivers eczema eczema 1-20 ity of 00:00: [place] MD [facility] Bilateral Bilateral Disease Active Uni vers trochanter trochanter 1-13 it y of ic ic 00:00: [place] bursitis bursitis 00 MD [facility] C83.3 C83.3 Diagnosis Active 2015-062016-05-31 Mem oria Active 08-01 06:59:00 l 05/31/2016 00:00: Gurwinder onofre [facility] [place] MESENTERIC MESENTERI Diagnosis Active 2015-062016-05-02 Memoria LYMPH C LYMPH 06-25 07:59:00 l NODE-I88.0 NODE-I88.0 00:00: He rmann Active 00 04/25/2016 [place] Recurrent Recurrent Problem Active [place] herpes [...] 30+ da - obesity - Obesity Medi lars Group Obesity Obesity Problem Active [place] da [...] [place] maxillary Maxillary da sinusitis Sinusitis Medi lars Group Has a sore Has a Sore [...] of of da mesentery Mesentery [facility] lars Group Gastrointe Gastrointe Problem Active M [place] [...] Nasal da turbinates Turbinates Me dical Group No known No known Disease Unive rs active active ity of problems problems [facility] Backache Backache Problem Active 2016-06-03 Memoria (finding) (finding) 02:23:46 l Active [place] Problem 06/03/2016 [facility] [place] Gastroesop Gastroeso Problem Active 2016-06-03 Memoria hageal phageal 02:23:46 l reflux reflux Haris disease disease (disorder) (disorder) Active Problem 06/03/2016 [facility] [place] Neck pain Neck pain Problem Active 2016-06-03 Memoria (finding) (finding) 02:23:46 l Active [place] Problem 06/03/2016 [facility] [place] SARS-CoV-2 SARS-CoV- Diagnosis Active 2021-04-19 Memoria vaccinatio 2 16:44:40 l n vaccinatio Gurwinder n n Active 04/19/2021 MD [facility]ope Encounter Encounter Diagnosis Active 2021-03-26 Memoria for for 17:57:45 l immunizati immunizati He rmann on - on - Unchanged Unchanged Active 03/26/2021 [facility] Chronic Chronic Diagnosis Active 2021-04-16 Memoria lumbosacra lumbosacra 17:50:29 l l pain l pain Haris Active 04/16/2021 [facility] Lumbar Lumbar Diagnosis Active 2021-04-16 Tn moria radiculiti radiculiti 17:50:29 l s s Active [place] 04/16/2021 [facility] Degenerati Degenerat Diagnosis Active 2021-04-16 Memoria ve disc hillary disc 17:50:29 l disease, disease, Gurwinder n lumbar lumbar Active 04/16/2021 [facility] Anxiety Anxiety Problem Active 2016-06-03 M damienria (finding) (finding) 02:23:46 l Active [place] Problem 06/03/2016 [place] Allergies, Adverse Reactions, Alerts Allergy Allergy Status Severity Reaction(s) Onset Inactive Treating Comm ents Source Name Type Date Date Clinician Tylenol Tylenol Active Rash 2020-06 Memoria 0-22 l 00:00: [place] 00 Tylenol Propensi Active Rash 2020-06 Conchis ty to 0-22 Seybold adverse 00:00: reaction 00 s Acetamin Drug Active Rash Univers ophen Allergy 06-15 ity of 00:00: [place] 00 MD [facility] Acetamin Propensi Active Rash Con[place]is ophen ty to 06-15 Seybold Injectio adverse 00:00: n reaction 00 s Tylenol Tylenol Active Memoria l [place] NO KNOWN Drug Active Univers ALLERGIE Class ity of S [facility] Unable Drug Active [facility] Tylenol Drug Active [facility] Tylenol Allergy [facility] Medical e [facility] Family History Family Member Diagnosis Comments Start Date Stop Date Source Natural brother Diabetes [facility] [place] [facility] Natural father Coronary heart Univer sity of disease (CHD) [place] MD Gia [facility] [place] Natural father Hypertension [facility] [place] MD [facility] Maternal aunt -Brain cancer [facility]i ty [facility] [place] MD Ricci [facility] Maternal aunt -Gastrointestinal Univ ersity of (Esophagus, Liver, Duncan Cope Bile Duct, Stomach, Cance r Center Pancreas, Colon, Rectum, Anus Maternal aunt -Leukemia [facility] MD Ricci [facility] Natural mother -Gynecology (Ovary, U niversity of Endometrial, Cervix, [place] Vagina) [facility] Natural mother -Thoracic or Lung Uni versity of [place] MD Ricci [facility] Natural mother Coronary heart Univer sity of disease (CHD) [facility] [place] Natural mother Hypertension Universi ty of [place] MD Radhames betts [facility] Natural sister -Genitourinary Univer sity of (Bladder, Kidney, [facility] [place] [facility] Prostate, Testicle) [facility] Natural sister Stroke [facility] MD Radhames betts [facility] Social History Social Habit Start Date Stop Date Quantity Comments Source Exposure to Not sure [facility] SARS-CoV-2 (event) [facility] Tobacco use and 2021-06-11 2021-06-11 Never used Universit y of exposure 00:00:00 00:00:00 [facility] Alcohol intake 2019-10-04 2019-10-04 Current University of 00:00:00 00:00:00 non-drinker of [place] MD Cheyenne christianson alcohol [facility] (finding) Cigarettes smoked 2016-06-15 2016-06-15 [facility] it of current (pack per 00:00:00 00:00:00 [facility] [place] ) - Reported Cancer Ce nter Cigarette 2016-06-15 2016-06-15 University of pack-years 00:00:00 00:00:00 [place] MD Radhames betts [facility] Social History 2016-04-25 2016-04-[address] [facility] 18:11:00 18:11:00 History of tobacco 1968-06-05 1978-06-05 Current smoker Un iversity of use 00:00:00 00:00:00 [place] MD Radhames betts [facility] Sex [birth year] Universit y of 00:00:00 00:00:00 [place] MD Radhames betts [facility] Smoking Status Start Date Stop Date Source Tobacco smoking [facility] consumption unknown Never smoker [facility] Social History 2016-06-15 00:00:00 2016-06-15 [facility] 00:00:00 Medications Ordered Filled Start Stop Current Ordering Indication Dosage Frequency Signature Comments Components Source Medication Medication Date Date Medication? Clinician (SIG) Name Name metoprolol Yes metoprolol U nivers succinate 2-23 succinate ity o f XL 25 mg 24 16:57: [place] 25 [place] tablet 43 tablet,ext Medi lars ended Branch release 24 hr TAKE 1 TABLET BY MOUTH EVERY DAY butalbital- Yes butalbital Univers acetaminoph 2-23 -acetamino it y of en-caff 16:57: phen-caffe [place] 50-325-40 43 ine 50 Medical mg tablet mg-325 Branch mg-40 mg tablet TAKE 1 TABLET BY MOUTH EVERY 4 HOURS NEEDED FOR HEADACHE acyclovir 0 Yes acyclovir Uni vers 200 mg 2-23 200 mg ity of capsule 16:57: capsule 43 Medical Branch prasugreL 0 Yes prasugrel Uni vers 10 mg 2-23 10 mg ity of tablet 16:57: tablet 43 Medical Branch benzonatate Yes benzonatat Univers 200 mg 2-23 e 200 mg ity of capsule 16:57: capsule 43 Take 1 Medical capsule 3 Branch times a day by oral route. valsartan Yes valsartan Uni vers 80 mg 2-23 80 mg ity of tablet 16:57: tablet [place] 43 TAKE 1 Medical TABLET BY Branch MOUTH EVERY DAY furosemide 0 Yes furosemide U nivers 20 mg 2-23 20 mg ity of tablet 16:57: tablet [place] 43 TAKE 1 Medical TABLET BY Branch MOUTH EVERY DAY codeine-gua Yes 5mL Take 5 mL U nivers ifenesin 2-23 by mouth ity of 10-100 mg/5 00:00: every 6 Junior as mL oral 00 (six) Medical solution hours as Branch needed for Cough. Indication s: cough fluticasone 0 Yes [id number] 1{spray Use 1 Univers propionate 2-23 } Veteran in ity o f 50 00:00: each [place] mcg/actuati 00 nostril Medic al on nasal daily. Branch spray guaiFENesin Yes [id number] 400mg Take 1 Univers 400 mg 2-23 tablet by ity of tablet 00:00: mouth [place] 00 every 4 Medical (four) Branch hours as needed for Cough. atorvastati Yes 40mg Take 40 mg Univers n 40 mg 1-12 by mouth ity of tablet 00:00: daily. [place] 00 Medical Branch ciprofloxac 0 Yes 500mg Take 500 U nivers in HCl 500 1-07 mg by ity of mg tablet 13:32: mouth [place] 21 every 12 Medical (twelve) Branch hours. metroNIDAZO 0 Yes 500mg Take 500 U nivers LE 500 mg 1-07 mg by ity of tablet 13:32: mouth [place] 21 every 8 Medical (eight) Branch hours. gabapentin Yes 300mg Take 300 Un stuart 300 mg 1-07 mg by ity of capsule 13:32: mouth 3 [place] 21 (three) Medical times Branch daily. albuterol Yes [id number] 2{puff} Inhale 2 Univers 90 1-07 Puffs ity of mcg/actuati 00:00: every 6 Junior as on inhaler 00 (six) Medical hours as Branch needed for Wheezing or Shortness of Breath. albuterol Yes [id number] 2{puff} Inhale 2 Univers 90 1-07 Puffs ity of mcg/actuati 00:00: every 6 Junior as on inhaler 00 (six) Medical hours as Branch needed for Wheezing or Shortness of Breath. Icosapent 2020-06 Yes 1{tbl} Take 1 Tabitha ey Ethyl 2-21 tablet by Seybold (Vascepa) 1 10:09: mouth 2 g oral 29 times Capsule daily LISINOPRIL- 2020-06 Yes 1{tbl} Take 1 Ke lsey HCTZ 2-21 tablet by Seybold 20-12.5 MG 10:09: mouth oral Tablet 29 daily Isosorbide 2020-06 Yes 30mg Take 30 mg K elsey Mononitrate 2-21 by mouth Seyb old CR 30 MG 10:09: daily oral TABLET 29 SR 24 HR Fenofibrate 2020-06 Yes 145mg Take 145 K elsey 145 MG oral 2-21 mg by Seybold Tablet 10:09: mouth 29 daily hydroCHLORO 2020-06 Yes 50mg Take 50 mg Conchis thiazide 50 2-21 by mouth Seyb old MG oral 10:09: daily Tablet 29 hydrOXYzine 2020-06 Yes 50mg Q.[id number] Take 50 mg [place]is Pamoate 50 2-21 [id number] by mouth 3 Seybold MG oral 10:09: [...] 10:09: Patient 29 states taking one daily gabapentin 2020-06 Yes 300mg Take 300 Un stuart 300 mg 2-21 mg by ity of capsule 00:00: mouth. [address] Gabapentin 2020-06 Yes [id number] 300mg Take 1 Conchis 300 MG oral 2-21 capsule Seybo ld Capsule 00:00: (300 mg 00 total) by mouth at bedtime Diclofenac 2020-06 Yes [id number] 75mg Take 1 Con[place]is Sodium 75 2-21 tablet (75 Seyb old MG oral 00:00: mg total) Tablet 00 by mouth 2 Delayed times Response daily estradioL 2 2020-06 Yes 2mg Take 2 mg U nivers mg tablet 2-10 by mouth ity of 00:00: daily. [address] acyclovir 2020-06 Yes Take 2 Memori a [...] 1-15 tablet by l thiazide 16:44: mouth [place] (PRINZIDE,Z 40 twice ESTORETIC) daily. 20-12.5 mg per tablet estrogens, 2020-06 Yes Take 1 Memor ia conjugated, 1-15 tablet by l (PREMARIN) 16:44: mouth Gurwinder n 1.25 mg 40 daily. tablet traMADol 2020-06 Yes Take 1 Memoria (ULTRAM) 50 1-15 tablet by l mg tablet 16:44: mouth [place] 40 every 6 (six) hours as needed. [...] 1-15 mg by l ORAL 16:44: mouth [place] 40 daily. Patient states that she takes this medication in the middle of the day. aspirin 81 2020-06 Yes Take 81 mg M emoria mg EC 1-15 by mouth l tablet 16:44: daily. [place] 40 amLODIPine 2020-06 Yes Take 5 mg Me moria (NORVASC) 5 1-15 by mouth l mg tablet 16:44: daily. Gurwinder n 40 gemfibrozil 2020-06 Yes gemfibrozi Memoria (LOPID) 600 1-15 l 600 mg l mg tablet 16:44: tablet Gurwinedr n 40 TAKE 1 TABLET BY MOUTH [...] by mouth l MG oral 17:50: daily [place] Tablet 29 hydrOXYzine 2020-06 Yes Take 50 [...] mg by l oral 17:50: mouth 5 [place] Suspension 29 times daily Bimatoprost 2020-06 Yes 1 drop Kobi thania (Lumigan) -12 nightly l 0.01 % 17:50: [place] ophthalmic 29 Solution cycloSPORIN 2020-06 Yes Apply to Me mary alice E (RESTASIS 06-16 eye l OP) 17:50: [place] 29 Fluocin-Hyd 2020-06 Yes Apply 1 Mem oria roquinone-T 06-16 applicatio l retinoin 17:50: n [place] 0.01-4-0.05 29 topically % apply nightly externally Cream Aspirin 2020-06 Yes Take 81 mg Kobi thania (Aspirin 12 by mouth l 81) 81 MG 17:50: daily [place] oral 29 Chewable Tablet Atorvastati 2020-06 Yes Take 40 mg Memoria n Calcium 12 by mouth l 40 MG oral 17:50: daily Gurwinder n Tablet 29 Famotidine 2020-06 Yes Take 40 mg M emoria 40 MG oral 12 by mouth l Tablet 17:50: daily [place] 29 Iron-Vitami 2020-06 Yes Take by Mem oria n C (Iron 06-16 mouth l 100/C) 17:50: [place] 100-250 MG 29 oral Tablet ESTRADIOL 2020-06 Yes Take by Memor ia OR -12 mouth l 17:50: Patient [place] 29 states taking one daily ESTRADIOL 2020-06 Yes Take by Kelse y OR -12 mouth Seybold 08:25: Patient 08 states taking one daily Estrogens 2020-06- No 1.25mg Take 1.25 Conchis Conjugated 1-12 11-12 mg by Mike (Premarin) 08:25: 00:00 mouth 1.25 MG 07 :00 daily oral Tablet Patient states taking one daily Icosapent 2020-06 Yes 1{tbl} Take 1 Tabitha ey Ethyl 1-12 tablet by Mike (Vascepa) 1 08:16: mouth 2 g oral 17 times Capsule daily LISINOPRIL- 2020-06 Yes 1{tbl} Take 1 Ke lsey HCTZ 1-12 tablet by Mike 20-12.5 MG 08:16: mouth oral Tablet 17 daily Isosorbide 2020-06 Yes 30mg Take 30 mg K elsey Mononitrate -12 by mouth yb old CR 30 MG 08:16: daily oral TABLET 17 SR 24 HR Fenofibrate 2020-06 Yes 145mg Take 145 K elsey 145 MG oral 1-12 mg by Seybold Tablet 08:16: mouth 17 daily hydroCHLORO 2020-06 Yes 50mg Take 50 mg Conchis thiazide 50 1-12 by mouth Seyb old MG oral 08:16: daily Tablet 17 hydrOXYzine 2020-06 Yes 50mg Q.[id number] Take 50 mg [place]is Pamoate 50 1-12 [id number] by mouth 3 Seybold MG oral 08:16: 3D times Capsule 17 daily as needed for itching Carisoprodo 2020-06 Yes 350mg Q.25D Take 350 Concihs l 350 MG 1-12 mg by Seybold [...] Bimatoprost 2020-06 Yes 1[drp] 1 drop Dave lsey (Lumigan) 1-12 nightly Seybold 0.01 % 08:16: ophthalmic 17 Solution cycloSPORIN 2020-06 Yes Apply to Dave claireey E (RESTASIS 1-12 eye Seybold OP) 08:16: 17 Fluocin-Hyd 2020-06 Yes Apply 1 Tanner y roquinone-T 1-12 applicatio Se ybold retinoin 08:16: n 0.01-4-0.05 [...] 17 Iron-Vitami 2020-06 Yes Take by Tanner latonia n C (Iron 1-12 mouth Seybold 100/C) [...] meals) Iron-Vitami 2020-06 Yes Take by Tanner lincoln n C (Iron 0-22 mouth Seybold 100/C) [...] daily Tablet 42 hydrOXYzine 2020-06 Yes 50mg Q.[id number] Take 50 mg Conchis Pamoate 50 0-22 [id number] by mouth 3 Seybold MG oral 09:45: [...] 42 Solution cycloSPORIN 2020-06 Yes Apply to Ke lsey E (RESTASIS 0-22 eye Seybold OP) 09:45: 42 Fluocin-Hyd 2020-06 Yes Apply 1 Tanner sey roquinone-T 0-22 applicatio Se ybold retinoin 09:45: n 0.01-4-0.05 42 topically % apply nightly externally Cream Gemfibrozil 2020-06 Yes Take 1 Kobi thania 600 MG oral 0-22 tablet l Tablet 00:00: (600 mg [place] 00 total) by mouth 2 times daily (before meals) Gemfibrozil 2020-06 Yes [id number] 600mg Take 1 Conchis 600 MG oral 0-22 tablet Seybol d Tablet 00:00: (600 mg 00 total) by mouth 2 times daily (before meals) Gemfibrozil 2020-06 Yes [id number] 600mg Take 1 Conchis 600 MG oral 0-22 tablet Seybol d Tablet 00:00: (600 mg 00 total) by mouth 2 times daily (before meals) Gemfibrozil 2020-06 Yes [id number] 600mg Take 1 Conchis 600 MG oral 0-22 tablet Seybol d Tablet 00:00: (600 mg 00 total) by mouth 2 times daily (before meals) No known No Univers medications -20 ity of 19:32: [address] No known No Univers medications 9-20 ity of 19:32: [address] No known No Univers medications 9-20 ity of 19:32: [address] amLODIPine Yes 5mg Take 5 mg Un stuart (NORVASC) 5 5-01 by mouth ity of mg tablet 14:53: daily. [place] 57 MD Jain [facility] gemfibrozil Yes gemfibrozi Univers (LOPID) 600 5-01 l 600 mg ity of mg tablet 14:53: tablet [place] 57 TAKE 1 MD TABLET BY Anderso MOUTH n TWICE Cancer DAILY [place] icosapent Yes Vascepa 1 Uni vers ethyL 5-01 gram ity of (Vascepa) 1 14:53: capsule Junior as gram [facility] 57 TAKE 2 MD CAPSULES Anderso BY MOUTH n TWICE Cancer DAILY [place] acyclovir Yes 2{capsu Take 2 Uni vers (ZOVIRAX) 5-01 le} capsules ity of 200 mg 14:48: by mouth [place] capsule 02 as needed. MD Cristobal onofre [facility] acyclovir Yes 1{appli Apply 1 Un stuart (ZOVIRAX) 5-01 cation} applicatio i ty of 5% cream 14:48: n [place] 02 [facility] Cancer needed. [place] fenofibrate Yes 1{tbl} Take 1 Un stuart nanocrystal 5-01 tablet by ity of lized 14:48: mouth [place] (TRICOR) 02 daily. 145 mg Anderso tablet Cancer [place] FLUoxetine Yes 1{capsu Take 1 Un stuart (PROzac) 20 5-01 le} capsule by it y of mg capsule 14:48: mouth [place] 02 daily. MD Cristobal onofre [facility] isosorbide Yes 1{tbl} Take 1 Uni vers mononitrate 5-01 tablet by ity of (IMDUR) 30 14:48: mouth [place] mg 24 hr 02 daily. MD nick Jain [facility] lisinopril- Yes 1{tbl} Take 1 Un stuart hydrochloro 5-01 tablet by ity of thiazide 14:48: mouth [place] (PRINZIDE,Z 02 twice MD DAVIS) daily. Anderso 20-12.5 mg n per tablet Cancer Center estrogens, 2019-0 Yes 1{tbl} Take 1 Uni vers conjugated, 5-01 tablet by ity of (PREMARIN) 14:48: mouth [place] 1.25 mg 02 daily. MD nick onofre [facility] traMADol 2020-0 Yes 1{tbl} Take 1 Unive rs (ULTRAM) 50 5-01 tablet by ity of mg tablet 14:48: mouth [place] 02 every 6 (six) Cristobal hours as n needed. Cancer [place] carisoprodo 2019-0 Yes 1{tbl} Take 1 Un stuart l (SOMA) 5-01 tablet by ity of 350 mg 14:48: mouth as [place] tablet 02 needed. MD Cristobal onofre [facility] calcium 2019-0 Yes 2{tbl} Chew 2 Univer s carbonate 5-01 tablets as ity of (TUMS) 1000 14:48: needed. Junior as mg (400 mg 02 elemental Cristobal calcium) n chewable Cancer tablet Center HYDROXYZINE 2019-0 Yes 100mg Take 100 U nivers PAMOATE 5-01 mg by ity of ORAL 14:48: mouth [place] 02 daily. Patient Cristobal states n that she Cancer takes this Center medication in the middle of the day. aspirin 81 2020-0 Yes 81mg Take 81 mg U nivers mg EC 5-01 by mouth ity of tablet 14:48: daily. MD Cristobal onofre [facility] clopidogrel 2020-0 Yes 75mg Take 75 mg Univers (PLAVIX) 75 4-22 by mouth ity of mg tablet 00:00: daily. MD Cristobal onofre [facility] clopidogrel 2020-0 Yes Take 75 mg Memoria (PLAVIX) 75 4-22 by mouth l mg tablet 00:00: daily. Gurwinder n 00 LUMIGAN 2019-0 Yes 1[drp] Administer Un stuart 0.01 % 4-18 1 drop to ity of ophthalmic 00:00: both eyes. [place] drops 00 Patient states francia Jain does two n drops Cancer [place] LUMIGAN 2019-0 Yes Administer Kobi thania 0.01 % 4-18 1 drop to l ophthalmic 00:00: both eyes. H ermann drops 00 Patient states she does two drops atorvastati Yes 40mg Take 40 mg Univers n (LIPITOR) 3-03 by mouth ity of 40 mg 00:00: at [place] tablet 00 bedtime. MD Cristobal onofre [facility] atorvastati Yes Take 40 mg Memoria n (LIPITOR) 3-03 by mouth l 40 mg 00:00: at [place] tablet 00 bedtime. fluocinolon Yes Patient Uni vers e 0.01 % 8-26 uses this ity of oil 00:00: 2-4 times [place] 00 a day MD Cristobal onofre [facility] fluocinolon Yes Patient Mem oria e 0.01 % 8-26 uses this l oil 00:00: 2-4 times Har[place] 00 a day hydrOXYzine Yes Dermatograp TAKE 1 OR Univers HCl 7-30 hic 2 TABLETS ity of (ATARAX) 25 00:00: urticaria BY MOUTH [place] mg tablet 00 EVERY MD NIGHT AT [facility] BEDTIME n NEEDED FOR Cancer ITCHING. [place] hydrOXYzine Yes TAKE 1 OR M emoria HCl 7-30 2 TABLETS l (ATARAX) 25 00:00: BY MOUTH He rmann mg tablet 00 EVERY NIGHT AT BEDTIME NEEDED FOR ITCHING. Roxicodone 2015-06 No 5 mg, Memori a 07-02 Route: PO, l 20:33: ONCE, Dosing Weight 67.864, kg, Start date: 05/02/16 14:33:00 [employer], Stop date: 05/02/16 14:33:00 [employer] Roxicodone 2015-06 No 5 mg, Memori a 07-02 Route: PO, l 20:33: ONCE, Dosing Weight 67.864, kg, Start date: 05/02/16 14:33:00 [employer], Stop date: 05/02/16 14:33:00 [employer] glycopyrrol 2015-06 No Route: IV, Memoria ate (ANES) 07-02 Drug form: l 18:36: INJ, ONCE, Stop date: 05/02/16 12:36:00 [employer] NURSE neostigmine 2015-06 No Route: IV, Memoria (ANES) 07-02 Drug form: l 18:36: INJ, ONCE, Stop date: 05/02/16 12:36:00 [employer] glycopyrrol 2015-06 No Route: IV, Memoria ate (ANES) 07-02 Drug form: l 18:36: INJ, ONCE, Stop date: 05/02/16 12:36:00 [employer] neostigmine 2015-06 No Route: IV, Memoria (ANES) 07-02 Drug form: l 18:36: INJ, ONCE, Stop date: 05/02/16 12:36:00 [employer] Meperidine 2015-06 No Notes: Memor ia 07-02 [...] Pain Score 1-3, Start date: 05/02/16 12:29:00 [employer], Duration: 1 doses or times, Stop date: [...] ne 07-02 Same as l 18:29: Dilaudid Meperidine 2015-06 No Notes: Memor ia 07-02 [...] Pain Score 1-3, Start date: 05/02/16 12:29:00 [employer], Duration: 1 doses or times, Stop date: [...] 50 mg = 1 Kobi thania hydrochlori -28 tab, PO, l de 50 MG 18:22: Q6H, PRN Ana nn Oral Tablet 00 Pain, X 7 day, # 28 tab, 0 Refill(s) POLYETHYLEN 2015-06 Yes 17 gm, PO, Memoria E GLYCOL -28 Daily, PRN l 3350 142 18:22: Constipati Her walters MG/ML Oral 00 on, X 31 Solution day, # 527 [Miralax] gm, 0 Refill(s) tramadol 2015-06 Yes 50 mg = 1 Kobi thania hydrochlori -28 tab, PO, l de 50 MG 18:22: Q6H, PRN Ana nn Oral Tablet 00 Pain, X 7 day, # 28 tab, 0 Refill(s) ondansetron 2015-06 No Route: IV, Memoria (ANES) 07-02 Drug form: l 17:54: INJ, ONCE, Stop date: 05/02/16 11:54:00 [employer] ondansetron 2015-06 No Route: IV, Memoria (ANES) 07-02 Drug form: l 17:54: INJ, ONCE, Stop date: 05/02/16 11:54:00 [employer] ePHEDrine 2015-06 No Route: IV, Me moria (ANES) 07-02 Drug form: l 17:14: INJ, ONCE, Stop date: 05/02/16 11:14:00 [employer] ePHEDrine 2015-06 No Route: IV, Me moria (ANES) 07-02 Drug form: l 17:14: INJ, ONCE, Stop date: 05/02/16 11:14:00 [employer] metoclopram 2015-06 No Route: IV, Memoria simeon (ANES) 07-02 Drug form: l 17:04: INJ, ONCE, Stop date: 05/02/16 11:04:00 [employer] famotidine 2015-06 No Route: IV, M emoria (ANES) 07-02 Drug form: l 17:04: INJ, ONCE, Stop date: 05/02/16 11:04:00 [employer] rocuronium 2015-06 No Route: IV, M emoria (ANES) 07-02 Drug form: l 17:04: INJ, ONCE, [place] 00 Stop date: 05/02/16 11:04:00 [employer] acetaminoph 2015-06 No Route: IV, Memoria en (ANES) 07-02 Drug form: l 17:04: INJ, ONCE, [place] 00 Stop date: 05/02/16 11:04:00 [employer] metoclopram 2015-06 No Route: IV, Memoria simeon (ANES) 07-02 Drug form: l 17:04: INJ, ONCE, [place] 00 Stop date: 05/02/16 11:04:00 [employer] famotidine 2015-06 No Route: IV, M emoria (ANES) 07-02 Drug form: l 17:04: INJ, ONCE, [place] 00 Stop date: 05/02/16 11:04:00 [employer] rocuronium 2015-06 No Route: IV, M emoria (ANES) 07-02 Drug form: l 17:04: INJ, ONCE, [place] 00 Stop date: 05/02/16 11:04:00 [employer] acetaminoph 2015-06 No Route: IV, Memoria en (ANES) 07-02 Drug form: l 17:04: INJ, ONCE, Stop date: 05/02/16 11:04:00 [employer] propofol 2015-06 No Route: IV, Mem oria (ANES) 07-02 Drug form: l 16:59: INJ, ONCE, Stop date: 05/02/16 10:59:00 [employer] succinylcho 2015-06 No Route: IV, Memoria line (ANES) 07-02 Drug form: l 16:59: INJ, ONCE, [place] 00 Stop date: 05/02/16 10:59:00 [employer] midazolam 2015-06 No Route: IV, Me moria (ANES) 07-02 Drug form: l 16:59: SOLN, [place] 00 ONCE, Stop date: 05/02/16 10:59:00 [employer] fentaNYL 2015-06 No Route: IV, Mem oria (ANES) 07-02 Drug form: l 16:59: INJ, ONCE, [place] 00 Stop date: 05/02/16 10:59:00 [employer] lidocaine 2015-06 No Route: IV, Me moria (ANES) 07-02 Drug form: l 16:59: INJ, ONCE, [place] 00 Stop date: 05/02/16 10:59:00 [employer] propofol 2015-06 No Route: IV, Mem oria (ANES) 07-02 Drug form: l 16:59: INJ, ONCE, [place] 00 Stop date: 05/02/16 10:59:00 [employer] succinylcho 2015-06 No Route: IV, Memoria line (ANES) 07-02 Drug form: l 16:59: INJ, ONCE, Stop date: 05/02/16 10:59:00 [employer] midazolam 2015-06 No Route: IV, Me moria (ANES) 07-02 Drug form: l 16:59: SOLN, [place] 00 ONCE, Stop date: 05/02/16 10:59:00 [employer] fentaNYL 2015-06 No Route: IV, Mem oria (ANES) 07-02 Drug form: l 16:59: INJ, ONCE, Stop date: 05/02/16 10:59:00 [employer] lidocaine 2015-06 No Route: IV, Me moria (ANES) 07-02 Drug form: l 16:59: INJ, ONCE, Stop date: 05/02/16 10:59:00 [employer] cefOXitin 2015-06 No Route: IV, Me moria (ANES) 07-02 Drug form: l 16:54: INJ, ONCE, Stop date: 05/02/16 10:54:00 [employer] cefOXitin 2015-06 No Route: IV, Me moria (ANES) 07-02 Drug form: l 16:54: INJ, ONCE, [place] 00 Stop date: 05/02/16 10:54:00 [employer] LR 1000 mL 2015-06 No Route: IV, M emoria INJ (ANES) 07-02 Total l 16:19: Volume: [place] 00 1,000, Start date: 05/02/16 10:19:00 [employer], Stop date: 05/02/16 11:19:00 [employer] LR 1000 mL 2015-06 No Route: IV, M emoria INJ (ANES) 07-02 Total l 16:19: Volume: [place] 00 1,000, Start date: 05/02/16 10:19:00 [employer], Stop date: 05/02/16 11:19:00 [employer] Neurontin 2015-06 No Notes: Memori a 07-02 (Same as: l 15:30: Neurontin) Neurontin 2015-06 No Notes: Memori a 07-02 (Same as: l 15:30: Neurontin) Calcium 2015-06 No 1,000 mL, Memor ia Chloride 07-02 Rate: 25 l 0.0014 13:59: ml/hr, [place] MEQ/ML / 00 Infuse Potassium over: 40 Chloride hr, Route: 0.004 IV, Dosing MEQ/ML / Weight Sodium 67.727 kg, Chloride Total 0.103 Volume: MEQ/ML / 1,000, Sodium Start Lactate date: 0.028 05/02/16 MEQ/ML 7:59:00 Injectable [employer], Solution Duration: 30 day, Stop date: 06/01/16 7:58:00 [employer] Calcium 2015-06 No 1,000 mL, Memor ia Chloride 07-02 Rate: 25 l 0.0014 13:59: ml/hr, [place] MEQ/ML / 00 Infuse Potassium over: 40 Chloride hr, Route: 0.004 IV, Dosing MEQ/ML / Weight Sodium 67.727 kg, Chloride Total 0.103 Volume: MEQ/ML / 1,000, Sodium Start Lactate date: 0.028 05/02/16 MEQ/ML 7:59:00 Injectable [employer], Solution Duration: 30 day, Stop date: 06/01/16 7:58:00 [employer] Lovenox 2015-06 No Notes: Memoria 07-02 (Same [...] a 07-02 (Same as: l 12:00: Neurontin) [place] 00 Lovenox 2015-06 No Notes: Memoria - (Same as: l 12:00: Lovenox) [place] 00 CeleBREX 2015-06 No Notes: Memoria 07-02 NSAID. l 12:00: Please [place] 00 check indication . Not for seizure. (Same As: CeleBREX) Mefoxin + 2015-06 No Notes: Memori a sodium 07-02 (Same As: l chloride 12:00: Mefoxin) Ana nn 0.9% INJ 00 100 mL MEDICATION WASTE Product Size: 2000 mg Product Wasted: ___ mg Neurontin 2015-06 No Notes: Memori a 07-02 (Same as: l 12:00: Neurontin) [place] 00 Fish Oil 2015-06 Yes = 2 tab, Memor ia 1200 mg 1-21 PO, PRN, 0 l oral 17:54: Refill(s) [place] capsule 00 Fish Oil 2015-06 Yes = 2 tab, Memor ia 1200 mg 1-21 PO, PRN, 0 l oral 17:54: Refill(s) [place] capsule 00 biotin 1000 2015-06 Yes 2,000 Memor ia mcg oral 1-21 microgram l tablet 17:53: = 2 tab, [place] 00 PO, Daily, # 30 tab, 0 Refill(s) biotin 1000 2015-06 Yes 2,000 Memor ia mcg oral 1-21 microgram l tablet 17:53: = 2 tab, [place] 00 PO, Daily, # 30 tab, 0 Refill(s) lansoprazol 2015-06 Yes 30 mg = 1 M emoria e 30 MG 1-21 cap, PO, l Enteric 17:52: Daily, 0 Gurwinder n Coated 00 Refill(s) Capsule [Prevacid] Aspirin 325 2015-06 Yes 325 mg = 1 Memoria MG Oral 1-21 tab, PO, l Tablet 17:52: BID, 0 [place] 00 Refill(s) lansoprazol 2015-06 Yes 30 mg = 1 M emoria e 30 MG 1-21 cap, PO, l Enteric 17:52: Daily, 0 Gurwinder n Coated 00 Refill(s) Capsule [Prevacid] Aspirin 325 2015-06 Yes 325 mg = 1 Memoria MG Oral 1-21 tab, PO, l Tablet 17:52: BID, 0 [place] 00 Refill(s) latanoprost 2015-06 Yes 1 drp, [...] tab, PO, l Tablet 17:51: Daily, 0 [place] 00 Refill(s) latanoprost 2015-06 Yes 1 drp, [...] tab, PO, l Tablet 17:51: Daily, 0 [place] Refill(s) acyclovir 2015-06 Yes 200 mg = 1 Me moria 200 mg oral 1-21 cap, PO, l capsule 17:50: TID, 0 [place] Refill(s) acyclovir 2015-06 Yes 200 mg = 1 Me moria 200 mg oral 1-21 cap, PO, l capsule 17:50: TID, 0 [place] 00 Refill(s) carisoprodo 2015-06 Yes 350 mg = 1 Memoria l 350 mg 1-21 tab, PO, l oral tablet 17:49: QID, 0 Herm gricel Refill(s) carisoprodo 2015-06 Yes 350 mg = 1 Memoria l 350 mg 1-21 tab, PO, l oral tablet 17:49: QID, 0 Herm gricel 00 Refill(s) Estrogens, 2015-06 Yes 1.25 mg = Me moria Conjugated -21 1 tab, PO, l (LONG-TERM) 1.25 17:48: Daily, 0 Her walters MG Oral 00 Refill(s) Tablet [Premarin] Estrogens, 2015-06 Yes 1.25 mg = Me moria Conjugated 1-21 1 tab, PO, l (LONG-TERM) 1.25 17:48: Daily, 0 Her walters MG Oral 00 Refill(s) Tablet [Premarin] FLUoxetine 2015-06 Yes 20 mg = 1 Me moria 20 mg oral 1-21 tab, PO, l tablet 17:47: Daily, 0 [place] 00 Refill(s) FLUoxetine 2015-06 Yes 20 mg = 1 Me moria 20 mg oral 1-21 tab, PO, l tablet 17:47: Daily, 0 [place] 00 Refill(s) isosorbide 2015-06 Yes 30 mg = 1 Me moria dinitrate 1-21 tab, PO, l 30 mg oral 17:46: Daily, 0 Her walters tablet 00 Refill(s) Hydrochloro 2015-06 Yes 1 tab, PO, Memoria thiazide 1-21 Daily, 0 l 12.5 MG / 17:46: Refill(s) Her walters Lisinopril 00 20 MG Oral Tablet isosorbide 2015-06 Yes 30 mg = 1 Me moria dinitrate 1-21 tab, PO, l 30 mg oral 17:46: Daily, 0 Her walters tablet 00 Refill(s) Hydrochloro 2015-06 Yes 1 tab, PO, Memoria thiazide 1-21 Daily, 0 l 12.5 MG / 17:46: Refill(s) Her walters Lisinopril 00 20 MG Oral Tablet diethylprop 2015-06 Yes TK 1 T PO U nivers ion 25 mg 0-20 TID BEFORE ity of tab 00:00: [facility]ALS [place] [facility] Yes TK 1 T PO M emoria ion 25 mg 0-20 TID BEFORE l tab 00:00: MEALS [place] 00 albuterol albuterol No albuterol [place] sulfate HFA sulfate HFA sulfate da 90 90 HFA 90 Medical mcg/actuati mcg/actuati mcg/actuat Group on aerosol on aerosol ion inhaler inhaler aerosol INHALE 2 INHALE 2 inhaler PUFFS BY PUFFS BY INHALE 2 MOUTH EVERY MOUTH EVERY PUFFS BY 6 HOURS 6 HOURS MOUTH NEEDED FOR NEEDED FOR EVERY 6 WHEEZING OR WHEEZING OR HOURS SHORTNESS SHORTNESS NEEDED FOR OF BREATH OF BREATH WHEEZING OR SHORTNESS OF BREATH aspirin 81 aspirin 81 No aspirin 81 [place] mg chewable mg chewable mg d a tablet CHEW tablet CHEW chewable Medical AND SWALLOW AND SWALLOW tablet Group 1 TABLET 1 TABLET CHEW AND DAILY DAILY SWALLOW 1 TABLET DAILY atorvastati atorvastati No atorvastat [place] n 40 mg n 40 mg in 40 mg da tablet TAKE tablet TAKE tablet Medical 1 TABLET BY 1 TABLET BY TAKE 1 Group MOUTH EVERY MOUTH EVERY TABLET BY DAY DAY MOUTH EVERY DAY butalbital- butalbital- No butalbital [place] acetaminoph acetaminoph -acetamino da en-caffeine en-caffeine phen-caffe Medical 50 mg-325 50 mg-325 ine 50 Vick up mg-40 mg mg-40 mg mg-325 tablet TAKE tablet TAKE mg-40 mg ONE TABLET ONE TABLET tablet BY MOUTH BY MOUTH TAKE ONE EVERY 4 EVERY 4 TABLET BY HOURS HOURS MOUTH NEEDED FOR NEEDED FOR EVERY 4 HEADACHE HEADACHE HOURS NEEDED FOR HEADACHE estradiol 2 estradiol 2 No estradiol [place] [...] AREA TWICE AREA TWICE DAILY DAILY DAILY furosemide furosemide No furosemide [place] 20 mg 20 mg 20 mg da tablet TAKE tablet TAKE tablet Medical 2 TABLETS 2 TABLETS TAKE 2 Vick up BY MOUTH BY MOUTH TABLETS BY EVERY DAY EVERY DAY MOUTH EVERY DAY gabapentin gabapentin No gabapentin [place] 300 mg 300 mg 300 mg da capsule capsule capsule Medica l TAKE 1 TAKE 1 TAKE 1 Group CAPSULE BY CAPSULE BY CAPSULE BY MOUTH EVERY MOUTH EVERY MOUTH NIGHT AT NIGHT AT EVERY BEDTIME BEDTIME NIGHT AT BEDTIME hydroxyzine hydroxyzine No hydroxyzin [place] HCl 50 mg HCl 50 mg e HCl 50 d a tablet TAKE tablet TAKE mg tablet Medical 2 TABLETS 2 TABLETS TAKE 2 Vick up BY MOUTH BY MOUTH TABLETS BY TWICE DAILY TWICE DAILY MOUTH NEEDED NEEDED TWICE DAILY NEEDED icosapent icosapent No icosapent [place] ethyl 1 ethyl 1 ethyl 1 da gram gram gram Medical capsule capsule capsule Group Take 2 Take 2 Take 2 capsules capsules capsules twice a day twice a day twice a by oral by oral day by route. route. oral route. isosorbide isosorbide No isosorbide [place] mononitrate mononitrate [...] % da drops drops eye drops Medical INSTILL 1 INSTILL 1 INSTILL 1 Group DROP IN DROP IN DROP IN BOTH EYES BOTH EYES BOTH EYES AT BEDTIME AT BEDTIME AT BEDTIME metoprolol metoprolol No metoprolol [place] succinate succinate succinate da ER 25 mg ER 25 mg ER 25 mg Med ical tablet,exte tablet,exte tablet,ext Group nded nded ended release 24 release 24 release 24 hr TAKE 1 hr TAKE 1 hr TAKE 1 TABLET BY TABLET BY TABLET BY MOUTH EVERY MOUTH EVERY MOUTH DAY DAY EVERY DAY omega-3 omega-3 No omega-3 [place] [facility] acid ethyl acid ethyl acid ethyl da esters 1 esters 1 esters 1 Med ical gram gram gram Group capsule capsule capsule TAKE 2 TAKE 2 TAKE 2 CAPSULES BY CAPSULES BY CAPSULES MOUTH TWICE MOUTH TWICE BY MOUTH DAILY DAILY TWICE DAILY potassium potassium No potassium [place] chloride ER chloride ER chloride da 10 mEq 10 mEq ER 10 mEq Medica l tablet,exte tablet,exte tablet,ext Group nded nded ended release release release TAKE 1 TAKE 1 TAKE 1 TABLET BY TABLET BY TABLET BY MOUTH EVERY MOUTH EVERY MOUTH DAY DAY EVERY DAY prasugrel prasugrel No prasugrel [place] 10 mg 10 mg 10 mg da tablet TAKE tablet TAKE tablet Medical 1 TABLET BY 1 TABLET BY TAKE 1 Group MOUTH EVERY MOUTH EVERY TABLET BY DAY DAY MOUTH EVERY DAY tramadol 50 tramadol 50 No tramadol [place] mg tablet mg tablet 50 mg da TAKE 1 TAKE 1 tablet Medical TABLET BY TABLET BY TAKE 1 Vick up MOUTH TWICE MOUTH TWICE TABLET BY DAILY DAILY MOUTH TWICE DAILY valsartan valsartan No valsartan [place] 80 mg 80 mg 80 mg da tablet TAKE tablet TAKE tablet Medical 1 TABLET BY 1 TABLET BY TAKE 1 Group MOUTH EVERY MOUTH EVERY TABLET BY DAY DAY MOUTH EVERY DAY albuterol albuterol No albuterol [place] sulfate HFA sulfate HFA sulfate da 90 90 HFA 90 Medical mcg/actuati mcg/actuati mcg/actuat Group on aerosol on aerosol ion inhaler inhaler aerosol INHALE 1 TO INHALE 1 TO inhaler 2 PUFFS BY 2 PUFFS BY INHALE 1 MOUTH EVERY MOUTH EVERY TO 2 PUFFS 4 TO 6 4 TO 6 BY MOUTH HOURS HOURS EVERY 4 TO NEEDED NEEDED 6 HOURS NEEDED aspirin 81 aspirin 81 No aspirin 81 [place] mg chewable mg chewable mg d a tablet CHEW tablet CHEW chewable Medical AND SWALLOW AND SWALLOW tablet Group 1 TABLET 1 TABLET CHEW AND DAILY DAILY SWALLOW 1 TABLET DAILY atorvastati atorvastati No atorvastat [place] n 40 mg n 40 mg in 40 mg da tablet TAKE tablet TAKE tablet Medical 1 TABLET BY 1 TABLET BY TAKE 1 Group MOUTH EVERY MOUTH EVERY TABLET BY DAY DAY MOUTH EVERY DAY butalbital- butalbital- No butalbital [place] acetaminoph acetaminoph -acetamino da en-caffeine en-caffeine phen-caffe Medical 50 mg-325 50 mg-325 ine 50 Vick up mg-40 mg mg-40 mg mg-325 tablet TAKE tablet TAKE mg-40 mg ONE TABLET ONE TABLET tablet BY MOUTH BY MOUTH TAKE ONE EVERY 4 EVERY 4 TABLET BY HOURS HOURS MOUTH NEEDED FOR NEEDED FOR EVERY 4 HEADACHE HEADACHE HOURS NEEDED FOR HEADACHE Contrave 8 Contrave 8 No Contrave 8 [place] mg-90 mg mg-90 mg mg-90 mg da tablet,exte tablet,exte tablet,ext Medical nded nded ended Group release release release TAKE 1 TAB TAKE 1 TAB TAKE 1 TAB DAILY X 7 DAILY X 7 DAILY X 7 DAYS, THEN DAYS, THEN DAYS, THEN 1 TAB TWICE 1 TAB TWICE 1 TAB DAILY X 7 DAILY X 7 TWICE DAYS, THEN DAYS, THEN DAILY X 7 2 TABS in 2 TABS in DAYS, THEN the MORNING the MORNING 2 TABS in AND 1 TAB AND 1 TAB the in the in the MORNING EVENING X 7 EVENING X 7 AND 1 TAB days, THEN days, THEN in the TAKE 2 TABS TAKE 2 TABS EVENING X TWICE DAILY TWICE DAILY 7 days, THEN TAKE 2 TABS TWICE DAILY estradiol 2 estradiol 2 No estradiol [place] [...] AREA TWICE AREA TWICE DAILY DAILY DAILY fluticasone fluticasone No fluticason [place] propionate propionate e da 50 50 propionate Medical mcg/actuati mcg/actuati 50 G roup on nasal on nasal mcg/actuat spray,suspe spray,suspe ion nasal nsion SHAKE nsion SHAKE spray,susp LIQUID AND LIQUID AND ension USE 1 SPRAY USE 1 SPRAY SHAKE IN EACH IN EACH LIQUID AND NOSTRIL NOSTRIL USE 1 EVERY DAY EVERY DAY SPRAY IN EACH NOSTRIL EVERY DAY furosemide furosemide No furosemide [place] 20 mg 20 mg 20 mg da tablet TAKE tablet TAKE tablet Medical 2 TABLETS 2 TABLETS TAKE 2 Vick up BY MOUTH BY MOUTH TABLETS BY EVERY DAY EVERY DAY MOUTH EVERY DAY gabapentin gabapentin No gabapentin [place] 300 mg 300 mg 300 mg da capsule capsule capsule Medica l TAKE 1 TAKE 1 TAKE 1 Group CAPSULE BY CAPSULE BY CAPSULE BY MOUTH EVERY MOUTH EVERY MOUTH NIGHT AT NIGHT AT EVERY BEDTIME BEDTIME NIGHT AT BEDTIME hydroxyzine hydroxyzine No hydroxyzin [place] HCl 50 mg HCl 50 mg e HCl 50 d a tablet TAKE tablet TAKE mg tablet Medical 2 TABLETS 2 TABLETS TAKE 2 Vick up BY MOUTH BY MOUTH TABLETS BY TWICE DAILY TWICE DAILY MOUTH NEEDED NEEDED TWICE DAILY NEEDED icosapent icosapent No icosapent [place] ethyl 1 ethyl 1 ethyl 1 da gram gram gram Medical capsule capsule capsule Group Take 2 Take 2 Take 2 capsules capsules capsules twice a day twice a day twice a by oral by oral day by route. route. oral route. isosorbide isosorbide No isosorbide [place] mononitrate mononitrate [...] % da drops drops eye drops Medical INSTILL 1 INSTILL 1 INSTILL 1 Group DROP IN DROP IN DROP IN BOTH EYES BOTH EYES BOTH EYES AT BEDTIME AT BEDTIME AT BEDTIME metoprolol metoprolol No metoprolol [place] succinate succinate succinate da ER 25 mg ER 25 mg ER 25 mg Med ical tablet,exte tablet,exte tablet,ext Group nded nded ended release 24 release 24 release 24 hr TAKE 1 hr TAKE 1 hr TAKE 1 TABLET BY TABLET BY TABLET BY MOUTH EVERY MOUTH EVERY MOUTH DAY DAY EVERY DAY nystatin-tr nystatin-tr No nystatin-t [place] iamcinolone iamcinolone riamcinolo da 100,000 100,000 ne 100,000 Med ical unit/gram-0 unit/gram-0 unit/gram- Group .1 % .1 % 0.1 % topical topical topical ointment ointment ointment APPLY TO APPLY TO APPLY TO THE THE THE AFFECTED AFFECTED AFFECTED AREA(S) BY AREA(S) BY AREA(S) BY TOPICAL TOPICAL TOPICAL ROUTE 2 ROUTE 2 ROUTE 2 TIMES PER TIMES PER TIMES PER DAY DAY DAY omega-3 omega-3 No omega-3 [place] acid ethyl acid ethyl acid ethyl da esters 1 esters 1 esters 1 Med ical gram gram gram Group capsule capsule capsule TAKE 2 TAKE 2 TAKE 2 CAPSULES BY CAPSULES BY CAPSULES MOUTH TWICE MOUTH TWICE BY MOUTH DAILY DAILY TWICE DAILY Ozempic Ozempic No Ozempic [place] [facility] 0.25 mg or 0.25 mg or 0.25 mg or da 0.5 mg (2 0.5 mg (2 0.5 mg (2 Medical mg/1.5 mL) mg/1.5 mL) mg/1.5 mL) Group subcutaneou subcutaneou subcutaneo s pen s pen us pen injector injector injector INJECT 0.25 INJECT 0.25 INJECT MG MG 0.25 MG SUBCUTANEOU SUBCUTANEOU SUBCUTANEO SLY ONCE SLY ONCE USLY ONCE WEEKLY FOR WEEKLY FOR WEEKLY FOR 4 WEEKS 4 WEEKS 4 WEEKS THEN THEN THEN INCREASE TO INCREASE TO INCREASE 0.5 MG 0.5 MG TO 0.5 MG WEEKLY. WEEKLY. WEEKLY. potassium potassium No potassium [place] chloride ER chloride ER chloride da 10 mEq 10 mEq ER 10 mEq Medica l tablet,exte tablet,exte tablet,ext Group nded nded ended release release release TAKE 1 TAKE 1 TAKE 1 TABLET BY TABLET BY TABLET BY MOUTH EVERY MOUTH EVERY MOUTH DAY DAY EVERY DAY prasugrel prasugrel No prasugrel [place] 10 mg 10 mg 10 mg da tablet TAKE tablet TAKE tablet Medical 1 TABLET BY 1 TABLET BY TAKE 1 Group MOUTH EVERY MOUTH EVERY TABLET BY DAY DAY MOUTH EVERY DAY tramadol 50 tramadol 50 No tramadol [place] mg tablet mg tablet 50 mg da TAKE 1 TAKE 1 tablet Medical TABLET BY TABLET BY TAKE 1 Vick up MOUTH TWICE MOUTH TWICE TABLET BY DAILY DAILY MOUTH TWICE DAILY valsartan valsartan No valsartan [place] 80 mg 80 mg 80 mg da tablet TAKE tablet TAKE tablet Medical 1 TABLET BY 1 TABLET BY TAKE 1 Group MOUTH EVERY MOUTH EVERY TABLET BY DAY DAY MOUTH EVERY DAY Immunizations Ordered Immunization Filled Immunization Date Status Commen ts Source Name Name SARS-COV-2 COVID-19 2021-06-04 Completed [facility] of [facility] 00:00:00 [facility] VACCINE [place] SARS-COV-2 COVID-19 2021-06-04 Completed Unive rsity of MODERNA BOOSTER 00:00:00 [facility] VACCINE [place] Influenza Virus 2021-03-26 Completed [facility] [place] Vaccine, 00:00:00 Quadrivalent, High Dose, Age 65 And Up Influenza Virus 2021-03-26 Completed [place] hiltonold Vaccine, 00:00:00 Quadrivalent, High Dose, Age 65 And Up Influenza Virus 2021-03-26 Completed [place] Ibarra ybold Vaccine, 00:00:00 Quadrivalent, High Dose, Age 65 And Up Influenza Virus 2021-03-26 Completed [place] Ibarra ybold Vaccine, 00:00:00 Quadrivalent, High Dose, Age 65 And Up SARS-COV-2 COVID-19 2020-08-05 Completed [facility]ive [facility] of MODERNA VACCINE 00:00:00 [facility] SARS-COV-2 COVID-19 2020-08-05 Completed Unive rsity of MODERNA VACCINE 00:00:00 [facility] Covid-19 Vaccine 2020-08-05 Completed Paula Carballo (Moderna), Mrna-lnp, 00:00:00 Mio Protein, Pf, 100 Mcg/0.5ml,IM Covid-19 Vaccine 2020-08-05 Completed [place] paizbold (Moderna), Mrna-lnp, 00:00:00 Mio Protein, Pf, 100 Mcg/0.5ml,IM Covid-19 Vaccine 2020-08-05 Completed [place] Miles eybold (Moderna), Mrna-lnp, 00:00:00 Mio Protein, Pf, 100 Mcg/0.5ml,IM Covid-19 Vaccine 2020-08-05 Completed [place] Miles eybold (Moderna), Mrna-lnp, 00:00:00 Mio Protein, Pf, 100 Mcg/0.5ml,IM SARS-COV-2 COVID-19 2020-07-08 Completed [facility]ive rs[facility] of MODERNA VACCINE 00:00:00 [facility] SARS-COV-2 COVID-19 2020-07-08 Completed Unive rsity of MODERNA VACCINE 00:00:00 [facility] Covid-19 Vaccine 2020-07-08 Completed Paula Carballo (Moderna), Mrna-lnp, 00:00:00 Mio Protein, Pf, 100 Mcg/0.5ml,IM Covid-19 Vaccine 2020-07-08 Completed [place] paizbold (Moderna), Mrna-lnp, 00:00:00 Mio Protein, Pf, 100 Mcg/0.5ml,IM Covid-19 Vaccine 2020-07-08 Completed [place] Miles eybold (Moderna), Mrna-lnp, 00:00:00 Mio Protein, Pf, 100 Mcg/0.5ml,IM Covid-19 Vaccine 2020-07-08 Completed [place] Miles eybold (Moderna), Mrna-lnp, 00:00:00 Mio Protein, Pf, 100 Mcg/0.5ml,IM Tdap Tdap 2015-10-02 Completed [place] 15:44:00 [facility] Tdap Tdap 2015-10-02 Completed [place] 15:44:00 Medical Group influenza, high dose influenza, high dose 2014-04-16 Completed [place] seasonal seasonal 00:00:00 Medical Group influenza, high dose influenza, high dose 2014-04-16 Completed [place] seasonal seasonal 00:00:00 Medical Group pneumococcal pneumococcal 2013-04-02 Completed [place] polysaccharide PPV23 polysaccharide PPV23 18:27:10 Medical Group influenza, seasonal, influenza, seasonal, 2013-04-02 Completed [place] injectable injectable 18:27:10 Medical Group pneumococcal pneumococcal 2013-04-02 Completed [place] polysaccharide PPV23 polysaccharide PPV23 18:27:10 Medical Group influenza, seasonal, influenza, seasonal, 2013-04-02 Completed [place] injectable injectable 18:27:10 [facility] Group Vital Signs Vital Name Observation Time Observation Value Comments Source Height/Length 2021-06-22 09:39:33 154 cm Measured Weight Dosing 2021-06-22 09:39:33 80 kg BP Diastolic 2022-05-03 00:00:00 75 mm[Hg] [facility] Height 2022-05-03 00:00:00 61 [in_i] [facility] BMI (Body Mass 2022-05-03 00:00:00 34.8 kg/m2 [facility]) Group BP Systolic 2022-05-03 00:00:00 155 mm[Hg] [facility] Body Weight 2022-05-03 00:00:00 2945.6 [oz_av] [facility] oats [facility] BP Diastolic 2022-02-08 00:00:00 81 mm[Hg] [facility] Height 2022-02-08 00:00:00 61 [in_i] [facility] BMI (Body Mass 2022-02-08 00:00:00 35.9 kg/m2 [facility] BP Systolic 2022-02-08 00:00:00 180 mm[Hg] [facility] Body Weight 2022-02-08 00:00:00 190.2 [facility]lb_av[facility] Diastolic 2022-01-04 00:00:00 69 mm[Hg] [facility] Height 2022-01-04 00:00:00 61 [in_i] [facility] BMI (Body Mass 2022-01-04 00:00:00 35.1 kg/m2 [facility] BP Systolic 2022-01-04 00:00:00 138 mm[Hg] [facility] Body Weight 2022-01-04 00:00:00 2972.8 [oz_av] [facility] BP Diastolic 2021-09-30 00:00:00 60 mm[Hg] [facility] Height 2021-09-30 00:00:00 61 [in_i] [facility] BMI (Body Mass 2021-09-30 00:00:00 33.1 kg/m2 [facility]) Group BP Systolic 2021-09-30 00:00:00 130 mm[Hg] [facility] Body Weight 2021-09-30 00:00:00 2803.2 [oz_av] [facility] Height 2021-07-27 00:00:00 61 [in_i] [facility] BMI (Body Mass 2021-07-27 00:00:00 31.9 kg/m2 [facility]) Group Body Weight 2021-07-27 00:00:00 2704 [oz_av] [facility] BP Diastolic 2021-07-13 00:00:00 65 mm[Hg] [facility] Height 2021-07-13 00:00:00 61 [in_i] [facility] BMI (Body Mass 2021-07-13 00:00:00 32 kg/m2 [facility]) Group BP Systolic 2021-07-13 00:00:00 131 mm[Hg] [facility] Body Weight 2021-07-13 00:00:00 2712 [oz_av] [facility] BP Diastolic 2021-06-08 00:00:00 76 mm[Hg] [facility] Height 2021-06-08 00:00:00 61 [in_i] [facility] BMI (Body Mass 2021-06-08 00:00:00 34.6 kg/m2 [facility] BP Systolic 2021-06-08 00:00:00 153 mm[Hg] [facility] Body Weight 2021-06-08 00:00:00 2926.4 [oz_av] [facility] Body height 2021-05-25 16:13:00 154.9 [...] 2021-03-26 14:34:00 33.82 kg/m2 [facility] Height 2021-02-18 00:00:00 61 [in_i] [facility] BMI (Body Mass 2021-02-18 00:00:00 33.6 kg/m2 [facility] Body Weight 2021-02-18 00:00:00 2848 [oz_av] [facility] BP Diastolic 2020-11-10 00:00:00 67 mm[Hg] [facility] Height 2020-11-10 00:00:00 61 [in_i] [facility] BMI (Body Mass 2020-11-10 00:00:00 34.5 kg/m2 [facility] BP Systolic 2020-11-10 00:00:00 145 mm[Hg] [facility] Body Weight 2020-11-10 00:00:00 2921.6 [oz_av] [facility] Height 2020-08-19 00:00:00 61 [in_i] [facility] BMI (Body Mass 2020-08-19 00:00:00 34.8 kg/m2 [facility] Body Weight 2020-08-19 00:00:00 2944 [oz_av] [facility] Height 2020-02-20 00:00:00 61 [in_i] [facility] BMI (Body Mass 2020-02-20 00:00:00 34.8 kg/m2 [facility] Body Weight 2020-02-20 00:00:00 2944 [oz_av] [facility] Height 2019-12-11 00:00:00 61 [in_i] [facility] BMI (Body Mass 2019-12-11 00:00:00 34.8 kg/m2 [facility] Body Weight 2019-12-11 00:00:00 2944 [oz_av] [facility] Height/Length 2019-08-23 07:43:23 Measured Weight Dosing 2019-08-23 07:43:23 BP Diastolic 2019-07-18 00:00:00 72 mm[Hg] [facility] Height 2019-07-18 00:00:00 61 [in_i] [facility] BMI (Body Mass 2019-07-18 00:00:00 34.8 kg/m2 [facility] Group BP Systolic 2019-07-18 00:00:00 138 mm[Hg] [facility] Body Weight 2019-07-18 00:00:00 184 [lb_av] [facility] BP Diastolic 2019-06-11 00:00:00 72 mm[Hg] [facility] Height 2019-06-11 00:00:00 61 [in_i] [facility] BMI (Body Mass 2019-06-11 00:00:00 34.4 kg/m2 [facility]) Group BP Systolic 2019-06-11 00:00:00 138 mm[Hg] [facility] Body Weight 2019-06-11 00:00:00 182 [lb_av] [facility] BP Diastolic 2019-05-22 00:00:00 70 mm[Hg] [facility] Height 2019-05-22 00:00:00 61 [in_i] [facility] BMI (Body Mass 2019-05-22 00:00:00 34.4 kg/m2 [facility] BP Systolic 2019-05-22 00:00:00 141 mm[Hg] [facility] Body Weight 2019-05-22 00:00:00 2912 [oz_av] [facility] BP Diastolic 2019-05-07 00:00:00 71 mm[Hg] [facility] Height 2019-05-07 00:00:00 61 [in_i] [facility] BMI (Body Mass 2019-05-07 00:00:00 34.4 kg/m2 [facility] BP Systolic 2019-05-07 00:00:00 141 mm[Hg] [facility] Body Weight 2019-05-07 00:00:00 2912 [oz_av] [facility] BP Diastolic 2019-03-26 00:00:00 69 mm[Hg] [facility] Height 2019-03-26 00:00:00 61 [in_i] [facility] BMI (Body Mass 2019-03-26 00:00:00 33.6 kg/m2 [facility] BP Systolic 2019-03-26 00:00:00 138 mm[Hg] [facility] Body Weight 2019-03-26 00:00:00 2848 [oz_av] [facility] BP Diastolic 2018-12-28 00:00:00 74 mm[Hg] [facility] Height 2018-12-28 00:00:00 61 [in_i] [facility] BMI (Body Mass 2018-12-28 00:00:00 33.8 kg/m2 [facility] BP Systolic 2018-12-28 00:00:00 135 mm[Hg] [facility] Body Weight 2018-12-28 00:00:00 2864 [oz_av] [facility] BP Diastolic 2018-05-31 00:00:00 71 mm[Hg] [facility] Height 2018-05-31 00:00:00 61 [in_i] [facility] BMI (Body Mass 2018-05-31 00:00:00 35 kg/m2 [facility]) [facility] BP Systolic 2018-05-31 00:00:00 133 mm[Hg] [facility] Body Weight 2018-05-31 00:00:00 2960 [oz_av] [facility] Systolic (mm Hg) 2021-04-16 14:18:00 Kobi rial [facility] Diastolic (mm Hg) 2021-04-16 14:18:00 [facility] Heart Rate 2021-04-16 14:18:00 [facility] Height 2021-04-16 14:18:00 154.9 cm [facility] Weight 2021-04-16 14:18:00 [facility] Systolic (mm Hg) 2021-03-26 14:34:00 Kobi rial [facility] Diastolic (mm Hg) 2021-03-26 14:34:00 [facility] Heart Rate 2021-03-26 14:34:00 [facility] Temperature Oral (F) 2021-03-26 14:34:00 36.61 Leni [facility] Respitory Rate 2021-03-26 14:34:00 [facility] Height 2021-03-26 14:34:00 154.9 cm [facility] Weight 2021-03-26 14:34:00 [facility] Systolic (mm Hg) 2016-05-31 14:00:00 Kobi rial Hrais Diastolic (mm Hg) 2016-05-31 14:00:00 [facility] Respitory Rate 2016-05-31 14:00:00 [facility] Temperature Oral (F) 2016-05-31 14:00:00 98.4 F [facility] Weight 2016-05-31 13:20:00 [facility] BMI Calculated 2016-05-31 13:20:00 [facility] Height 2016-05-31 13:20:00 154.94 cm [facility] Respitory Rate 2016-05-02 20:45:00 [facility] Systolic (mm Hg) 2016-05-02 20:45:00 Kobi [facility] Diastolic (mm Hg) 2016-05-02 20:45:00 [facility] Respitory Rate 2016-05-02 20:15:00 [facility] Systolic (mm Hg) 2016-05-02 20:15:00 Kobi [facility] Diastolic (mm Hg) 2016-05-02 20:15:00 [facility] Systolic (mm Hg) 2016-05-02 19:45:00 Kobi rial [facility] Diastolic (mm Hg) 2016-05-02 19:45:00 [facility] Respitory Rate 2016-05-02 19:45:00 [facility] Heart Rate 2016-05-02 14:45:00 [facility] Weight 2016-05-02 14:23:00 [facility] BMI Calculated 2016-05-02 14:23:00 [facility] Height 2016-04-25 17:38:00 154.94 cm [facility] Procedures Procedure Date / Time Performing Source Performed Clinician unlisted imaging order 2021-09-30 [facility] 00:00:00 Group CONSENT/REFUSAL FOR DIAGNOSIS AND 2021-07-28 [facility] 22:22:56 Unassigned, No [facility] ASSIGNMENT OF BENEFITS 2021-07-28 Doctor [facility] 22:22:41 Unassigned, No [facility] LUMBAR SPINE 2 VIEWS 2021-04-16 [facility] 15:17:01 LUMBAR SPINE 2 VIEWS 2021-04-16 Koby Shah [facility] 15:17:01 XR, lumbar spine 2020-02-20 [facility] 00:00:00 Group MRI, lumbar spine, w/o contrast 2020-02-20 [facility] 00:00:00 Group unlisted imaging order 2019-06-11 [facility] 00:00:00 Group unlisted imaging order 2019-05-07 [facility] 00:00:00 Group unlisted imaging order 2018-12-28 [facility] 00:00:00 Group [facility]aract [facility] 00[facility] Removal - procedure 2005-06-05 [facility] 00:00:00 Hysterectomy 1988-06-05 [facility] 00:00:00 Appendectomy 1979-06-05 [facility] 00:00:00 Breast implantation 1974-06-05 [facility] 00:00:00 Miscellaneous operations 1960-06-05 [facility] 00:00:00 [facility]endectomy [facility] Breast [facility] Cataract [facility] Hysterectomy [facility] Other [facility] Esophagogastroduodenoscopy (Surg) [facility] Breast biopsy and related [facility] procedures Laparoscopy<sup>1</sup> [facility] Plan of Care Planned Activity Planned Date Details Comments Source Future Scheduled 2022-05-22 INFLUENZA VACCINE Method [facility] Test 12:47:06 [code = INFLUENZA VACCINE] Future Scheduled 2022-05-22 COVID-19 VACCINE (#1) [facility] Test 12:47:06 [code = COVID-19 VACCINE (#1)] Future Scheduled 2022-05-22 Hepatitis C screening [facility] Test 12:47:06 (procedure) [code = 156804899] Future Scheduled 2022-05-22 BREAST CANCER [facility] Test 12:47:06 SCREENING [code = BREAST CANCER SCREENING] Future Scheduled 2022-05-22 COLONOSCOPY SCREENING [facility] Test 12:47:06 [code = COLONOSCOPY SCREENING] Future Scheduled 2022-05-22 SHINGLES VACCINES (1 [facility] Test 12:47:06 of 2) [code = SHINGLES VACCINES (1 of 2)] Future Scheduled 2022-05-22 65+ PNEUMOCOCCAL Methodi [facility] Test 12:47:06 VACCINE (2 - PCV) [code = 65+ PNEUMOCOCCAL VACCINE (2 - PCV)] Diagnostic Test 2022-05-03 CMP, serum or plasma [facility] Pending 00:00:00 [code = CMP, serum or Group plasma] Diagnostic Test 2022-05-03 [facility]00 blood [code = Group hemoglobin A1c, QN, blood] Future Scheduled 2022-02-03 COVID-19 Vaccination [facility] Test 16:43:03 (#1) [code = COVID-19 MD [facility] erson [facility] Vaccination (#1)] Center Future Scheduled MR LUMBAR SPINE W/WO [facility] Test CONTRAST [code = 69402] Future Scheduled CREATINE, SERUM [code Me morial Haris Test = 49894] Future Scheduled Bone density scan [facility] Test (procedure) [code = 063420830] Future Scheduled PNEUMOCOCCAL 65+ (1 Kobi rial [facility] Test of 1 - PPSV23) [code = PNEUMOCOCCAL 65+ (1 of 1 - PPSV23)] Future Scheduled Screening for [facility] malignant neoplasm of colon (procedure) [code = 442208939] Future Scheduled Screening for [facility] Test malignant neoplasm of breast (procedure) [code = 615023549] Future Scheduled Zoster (Shingles) Memori [facility] Test Vaccine (1 of 2) [code = Zoster (Shingles) Vaccine (1 of 2)] Future Scheduled Physical Exam 40 and Mem orial [facility] Test over [code = Physical Exam 40 and over] Future Scheduled Lipid panel [facility] Test (procedure) [code = 94313855] Future Scheduled TDAP [code = TDAP] Memor ial [facility] Test Future Scheduled EYE EXAM [code = EYE Mem orial [facility] Test EXAM] Future Scheduled COVID-19 Vaccination Mem orial [facility] Test (1) [code = COVID-19 Vaccination (1)] Future Appointment 2022-07-07 [facility] [facility] [address]; [place] [address] Encounters Start End Encounter Admission Attending Care Care Encounter Source Date/Time Date/Time Type Type Clinicians Facility Department ID 2021-07-01 Outpatient 3 JUNO PratherPL CRD [id number] [facility] 13:43:52 [facility] [place] 2021-07-01 Outpatient 3 JUNO PratherPL CRD [id number] [facility] 13:43:45 Davion 0115 [facility] [place] 2021-07-01 Outpatient 3 [id number] ENCPL REF [id number] [facility] 13:42:53 0113 [facility] [place] 2019-08-23 Inpatient [facility]ali [facility] [place] [id number] 15:49:00 Citlali [facility] 2019-08-22 Inpatient Citlali [facility] [id number] 15:55:00 Citlali, [facility] 2022-05-13 2022-05-13 Outpatient A_Genetrd [facility] [id number] [place] 00:00:00 00:00:00 220 [facility] 2022-05-03 2022-05-03 Outpatient EL SIM DIGGS [facility] [id number] [id number] [place] 16:18:00 16:18:00 -[id number] [facility] 2022-05-03 2022-05-03 Outpatient A_Byrd MM MM 1827- [id number] [place] 00:00:00 00:00:00 129 [facility] 2022-05-03 2022-05-03 Sim Onofre MM [place] - [id number] M at[place] 00:00:00 00:00:00 MD Leno: Discovery asif [address] [place] [address] Group [facility] 201, [facility] [place] [address] , Ph. 2022-02-26 2022-02-26 Outpatient A_Byrd MMG MMG [id number] [place] 00:00:00 00:00:00 924 [facility] 2022-02-082022-02-08 Outpatient A_Byrd [facility] [id number] [place] 00:00:00 00:00:00 906 Medical Group 2022-02-08 2022-02-08 Lito Hua [facility] [place] - [id number] [place] 00:00:00 00:00:00 : Ever Perez [facility] Suite [facility], [facility], Otolaryngol [facility] [address] , Ph. 2022-01-05 2022-01-05 Outpatient A_Byrd [facility] 182- [id number] [place] 00:00:00 00:00:00 803 [facility] 2022-01-04 2022-01-04 Sim Onofre A_Byrd [facility] [place] - [place] 00:00:00 00:00:00 MD Leno: [address] [address] , Ph. 2022-01-03 2022-01-03 Outpatient A_Byrd [facility] 182- [id number] [place] 00:00:00 00:00:00 801 [facility] 2021-12-13 2021-12-13 Outpatient A_Byrd [facility] 182- [id number] [place] 09:50:00 09:50:00 711 [facility] 2021-09-30 2021-09-30 Outpatient SIM HAWTHORNE [facility] [id number] [id number] [place] 14:54:00 14:54:00 -[id number] [facility] 2021-09-30 2021-09-30 Sim Onofre A_Byrd [facility] [place] - [place] 00:00:00 00:00:00 MD Leno: [address] [place] [address] , Ph. 2021-09-02 2021-09-02 Outpatient A_Byrd [facility] 1827- [id number] [place] 01:33:00 01:33:00 331 Medical Group 2021-07-30 2021-07-30 Outpatient CONCHIS LOPEZ [id number] [place] 10:30:00 10:30:00 JLNINOSKA Hoffmanol d 2021-07-29 2021-07-29 Letter Marisa Nolen [id number] Univers 00:00:00 00:00:00 (Out) NIKKI [id number] it y of [facility] [id number] Junior as [id number] [facility] 019 Branch 2021-07-28 2021-07-28 Outpatient Harleen YIP [facility] [id number] Univers 16:15:00 17:11:11 SHANT edmondsy o f [facility] 2021-07-28 2021-07-28 Orders Doctor JOHNSON [id number] [place] [address] 00:00:00 00:00:00 Only Unassigned, NIKKI 350.1.13.10 ity of [facility] 4.2.7.2.686 Junior as [id number] [facility] 009 Branch 2021-07-27 2021-07-27 Sim Cobos [facility] [place] 00:00:00 00:00:00 MD Leno: [address] [place] [address] , Ph. 2021-07-20 2021-07-20 Outpatient Papito [facility] [id number] [place] 03:13:00 03:13:00 215 Medical Group 2021-07-19 2021-07-19 Outpatient [facility] [id number] [place] 09:18:00 09:18:00 [id number] [facility] 2021-07-13 2021-07-13 Sim Cobos [facility] [place] 00:00:00 00:00:00 MD Leno: [address] [facility] [place] [address], [facility] [place] [address] , Ph. 2021-06-21 2021-06-29 Inpatient MINA Hayward [facility] [id number] [facility] 13:48:00 13:19:00 Davion 0117 [facility] itation [place] 2021-06-28 2021-06-28 Outpatient CONCHIS SHAH [id number] [place] 10:34:00 10:34:00 AHMED Selidaol tal 2021-06-15 2021-06-15 Outpatient CONCHIS MANTILLA [id number] [place] 00:00:00 00:00:00 MONSERRAT Hoffmanol tal 2021-06-11 2021-06-11 Outpatient Harleen SOLIZ [facility] [id number] Univers 13:20:00 13:20:00 LEANNA garces [facility] 2021-06-10 2021-06-10 Outpatient CONCHIS MANTILLA [id number] [place] 00:00:00 00:00:00 MONSERRAT hernandez 2021-06-09 2021-06-09 Outpatient CONCHIS MANTILLA [id number] [place] 00:00:00 00:00:00 MONSERRAT Hoffmanol tal 2021-06-09 2021-06-09 Outpatient CONCHIS MANTILLA [id number] [place] 00:00:00 00:00:00 MONSERRAT Seybol d 2021-06-08 2021-06-08 Sim Cobos [facility] [place] - 1826- [place] 00:00:00 00:00:00 MD Leno: 104 da 600 [facility]Note 2[facility] [address], [facility] [place] [address] , Ph. 2021-06-07 2021-06-07 Outpatient CONCHIS SHAH [id number] [place] 11:29:00 11:29:00 AHMED Seybol d 2021-05-27 2021-05-27 Outpatient CONCHIS SHAH [id number] [place] 00:00:00 00:00:00 AHMED Seybol d 2021-05-26 2021-05-26 Outpatient CONCHIS SHAH [id number] [place] 00:00:00 00:00:00 AHMED Seybol d 2021-05-25 2021-05-25 Office DIPTI Lopez 1.2.840.114 [id number] [place] 10:00:00 10:30:00 Visit [facility] 350.1.13.13 ybold 1.2.7.2.686 [id number] 2021-05-25 2021-05-25 Outpatient CONCHIS MANTILLA [id number] [place] 00:00:00 00:00:00 MONSERRAT Seybol d 2021-05-21 2021-05-21 Outpatient CONCHIS SHAH [id number] [place] 00:00:00 00:00:00 AHMED Seybol d 2021-05-21 2021-05-21 Outpatient KRYSTEN BARNES [id number] [place] 00:00:00 00:00:00 MD WILBER Seybol d 2021-05-21 2021-05-21 Outpatient KRYSTEN BARNES [id number] [place] 00:00:00 00:00:00 MD WILBER Seybol d 2021-05-19 2021-05-19 Outpatient CONCHIS SANTOS [id number] [place] 10:00:00 10:00:00 MAGALY Seybol d 2021-05-18 2021-05-18 Outpatient CONCHIS MANTILLA [id number] [place] 00:00:00 00:00:00 MONSERRAT Seybol d 2021-05-17 2021-05-17 Outpatient CONCHIS BARNES [id number] [place] 07:45:00 07:45:00 Seybol d 2021-05-17 2021-05-17 Outpatient CONCHIS SPRINGER [id number] [place] 00:00:00 00:00:00 ERASTO Seybol d 2021-05-08 2021-05-08 Outpatient CONCHIS MANTILLA [id number] [place] 00:00:00 00:00:00 MONSERRAT Seybol d 2021-05-07 2021-05-07 Outpatient CONCHIS MANTILLA [id number] [place] 00:00:00 00:00:00 MONSERRAT Seybol d 2021-05-07 2021-05-07 Outpatient CONCHIS MANTILLA [id number] [place] 00:00:00 00:00:00 MONSERRAT Seybol d 2021-05-06 2021-05-06 Outpatient CONCHIS SHAH [id number] [place] 00:00:00 00:00:00 AHMED Seybol d 2021-05-03 2021-05-03 Outpatient CONCHIS MANTILLA [id number] [place] 15:30:00 15:30:00 MONSERRAT Seybol d 2021-05-03 2021-05-03 Outpatient CONCHIS MANTILLA [id number] [place] 00:00:00 00:00:00 MONSERRAT Seybol d 2021-04-30 2021-04-30 Outpatient CONCHIS LOPEZ [id number] [place] 13:00:00 13:00:00 JL Seybol d 2021-04-28 2021-04-28 Outpatient CONCHIS MANTILLA [id number] [place] 00:00:00 00:00:00 MONSERRAT Seybol d 2021-04-27 2021-04-27 Outpatient [facility] COCNHIS BARNES [id number] [place] 13:00:00 13:00:00 Seybol d 2021-04-27 2021-04-27 Outpatient CONCHIS SHAH [id number] [place] 00:00:00 00:00:00 AHMED Seybol d 2021-04-27 2021-04-27 Outpatient CONCHIS MANTILLA [id number] [place] 00:00:00 00:00:00 MONSERRAT Seybol d 2021-04-27 2021-04-27 Outpatient CONCHIS ANDRADE [id number] [place] 00:00:00 00:00:00 MECCA Seybo ld 2021-04-24 2021-04-24 Outpatient CONCHIS MANTILLA [id number] [place] 00:00:00 00:00:00 MONSERRAT Seybol d 2021-04-23 2021-04-23 Outpatient CONCHIS MANTILLA [id number] [place] 00:00:00 00:00:00 MONSERRAT Seybol d 2021-04-20 2021-04-20 Outpatient CONCHIS SHAH [id number] [place] 00:00:00 00:00:00 AHMED Seybol d 2021-04-19 2021-04-19 Outpatient CONCHIS MANTILLA [id number] [place] 00:00:00 00:00:00 MONSERRAT Seybol d 2021-04-17 2021-04-17 Outpatient LAB47 CONCHIS BARNES [id number] [place] 11:05:00 11:05:00 Seybol d 2021-04-16 2021-04-16 Outpatient LAB90 CONCHIS BARNES [id number] [place] 14:50:00 14:50:00 Seybol d 2021-04-16 2021-04-16 [facility] [id number] Memoria 13:58:02 14:28:02 Visit r Medical and l Diagnostic [facility] Pain Management 2021-04-16 2021-04-16 Outpatient CONCHIS BARNES [id number] [place] 09:05:00 09:05:00 Seybol d 2021-04-16 2021-04-16 Office BONNIE SHAH BYRNEDALE 1.2.840.114 [id number] [place] 08:15:00 08:15:00 Visit [facility] & 350.1.13.13 Seybold DIAGNOSTI 1.2.7.2.686 [facility] [id number] 2021-04-13 2021-04-13 Outpatient CONCHIS SHAH [id number] [place] 00:00:00 00:00:00 AHMED Seybol d 2021-04-12 2021-04-12 Outpatient CONCHIS SHAH [id number] [place] 00:00:00 00:00:00 AHMED Seybol d 2021-03-29 2021-03-29 Outpatient CONCHIS MANTILLA [id number] [place] 00:00:00 00:00:00 MONSERRAT hernandez 2021-03-26 2021-03-26 Office Mana Weldon [id number] Memoria 14:32:26 15:02:26 Visit harleen weiner [facility] 2021-03-26 2021-03-26 Office Shiraz Mantilla 1.2.840.114 [id number] [place] 09:32:26 10:02:26 Visit Monserrat Rendon 350.1.13.13 Se marjan Morenocheko 1.2.7.2.686 [id number] 2021-03-26 2021-03-26 Outpatient CONCHIS MANTILLA [id number] [place] 09:30:00 09:30:00 MONSERRAT hernandez 2021-03-26 2021-03-26 Outpatient CONCHIS MANTILLA [id number] [place] 00:00:00 00:00:00 MONSERRAT hernandez 2021-02-23 2021-02-23 Letter ALEX Willett [id number] Univers 00:00:00 00:00:00 (Out) Jason [place] 350.1.13.10 it y of [facility] 4.2.7.2.686 Junior as [id number] [address] 2021-02-22 2021-02-22 Laboratory Only, Ang Db Test [facility] 1.2.8 [id number] Univers 19:30:19 19:45:19 Only Martínez Leanna [facility] 350.1.13.10 ity [facility] 4.2.7.2.686 Junior as Sebastian?Blea [id number] [address] Medical Office Building 2021-02-22 2021-02-22 Outpatient Harleen SOLIZ [facility] [id number] Univers 19:15:00 19:15:00 LEANNA ity [facility] 2021-02-18 2021-02-18 Sim Cobso [facility] [place] - [id number] [place] 00:00:00 00:00:00 MD Leno: 916 600 [facility] [address] [address] , Ph. 2021-01-08 2021-01-08 Outpatient CONCHIS MANTILLA [id number] [place] 10:30:00 10:30:00 MONSERRAT Seybol d 2021-01-08 2021-01-08 Outpatient CONCHIS MANTILLA [id number] [place] 10:15:00 10:15:00 MONSERRAT Seybol d 2021-01-08 2021-01-08 Outpatient CONCHIS MANTILLA [id number] [place] 00:00:00 00:00:00 MONSERRAT Seybol tal 2021-01-04 2021-01-04 Outpatient CONCHIS MANTILLA [id number] [place] 16:00:00 16:00:00 MONSERRAT Seybol d 2020-11-10 2020-11-10 Sim Cobos [facility] [place] - 7- [place] 00:00:00 00:00:00 MD Leno: [address] [place] [address] , Ph. 2020-09-11 2020-09-11 Outpatient SIM HAWTHORNE [facility] [id number] [place] 10:09:00 10:09:00 -[id number] [facility] 2020-08-31 2020-08-31 Outpatient Papito [facility] 1827- 210 [place] 03:23:00 03:23:00 329 [facility] 2020-08-19 2020-08-19 Sim PendletonByannette [facility] [place] - [id number] [place] 00:00:00 00:00:00 MD Leno: [address] [place] [address] , Ph. 2020-08-13 2020-08-13 Outpatient HelderByannette [facility] 1827- 210 [place] 05:30:00 05:30:00 311 [facility] 2020-08-13 2020-08-13 Megan Cope [id number] [place] 00:00:00 00:00:00 Only harleen Carballo 2020-07-14 2020-07-14 Outpatient A_[facility] [id number] [place] 02:56:00 02:56:00 [facility] 2020-04-22 2020-04-22 Outpatient A_[facility] 7-20 201 [place] 02:42:00 02:42:00 118 [facility] 2020-04-06 2020-04-06 Outpatient PENA [facility] [id number] [facility] 00:00:00 00:00:00 PATRICIA, [address] 2020-03-24 2020-03-24 Outpatient [facility] [id number] [place] 00:00:00 00:00:00 PATRICIA, [address] 2020-03-24 2020-03-24 Outpatient [facility] [id number] [facility] 00:00:00 00:00:00 PATRICIA, [address] 2020-03-24 2020-03-24 Outpatient [facility] [id number] [facility] 00:00:00 00:00:00 PATRICIA, [address] 2020-03-04 2020-03-04 Outpatient A_Byrd MMG MM 1826- 200 [place] 10:00:00 10:00:00 930 Medical Group 2020-02-20 2020-02-20 Sim Onofre IHDE_G MM [place] 00:00:00 00:00:00 MD Leno: [address] [facility] [place] - [address], [facility] [place] [address] , Ph. 2020-01-28 2020-01-28 Outpatient IHDE_G MMG MM 7- 200 [place] 11:38:00 11:38:00 825 Medical [facility] 2019-12-11 2019-12-11 Sim Onofre IHDE_G MMG [place] 00:00:00 00:00:00 MD Leno: 708 da 600 [facility] - [address], [facility], [place] [address] , Ph. 2019-10-29 2019-10-29 Sim Shelbie IHDE_G MMG - [place] 00:00:00 00:00:00 MD Leno: 526 da 600 [facility] - [address], [facility], [place] [address] , Ph. 2019-08-23 2019-08-23 Outpatient 3 Ben Godwin [facility] [id number] 05:29:00 05:29:00 Ben Godwin -[id number] [facility] 2019-08-12 2019-08-12 Outpatient IHDE_G MMG MMG 1827-20 200 [place] 11:08:00 11:08:00 309 Medical Group 2019-08-07 2019-08-07 Outpatient IHDE_G MMG MMG [id number] 200 [place] 09:34:00 09:34:00 304 Medical Group 2019-07-30 2019-07-30 Outpatient NEHEMIAH GODWIN [facility] [id number] [place] 11:38:00 11:38:00 CORNISH -[id number] [facility] 2019-07-22 2019-07-22 Outpatient IHDE_G MMG MMG 1827-20 200 [place] 04:59:00 04:59:00 217 Medical Group 2019-07-18 2019-07-18 Maupin IHDE_G MMG - [place] 00:00:00 00:00:00 Agus Perez 213 yefri Menon MD: Medical Medica l [address] [place] [address] General [address], [place] [address] , Ph. [phone] 2019-07-05 2019-07-05 Outpatient IHDE_G MMG MMG 1827-20 200 [place] 09:08:00 09:08:00 131 da Medical Group 2019-07-01 2019-07-01 Outpatient IHDE_G MMG MMG 1827- 200 [place] 05:18:00 05:18:00 127 [facility] 2019-06-28 2019-06-28 Outpatient EL GLADIS MENON [facility] [id number] [place] 08:20:00 08:20:00 -[id number] [facility] 2019-06-26 2019-06-26 Outpatient IHDE_G MMG [facility] 1827- 200 [place] 10:39:00 10:39:00 122 [facility] 2019-06-19 2019-06-19 Outpatient A_Byrd MMG [facility] 182- 200 [place] 10:35:00 10:35:00 115 [facility] 2019-06-18 2019-06-18 [facility] 182- 200 [place] 12:09:00 12:09:00 114 [facility] 2019-06-11 2019-06-11 Gladis A_Byrd [facility] [place] - 0 [place] 00:00:00 00:00:00 Agus Perez 107 yefri Menon MD: Medical Medica [address], [place] [address] , Ph. [phone] 2019-05-22 2019-05-22 Outpatient SIM HAWTHORNE [facility] D000 [id number] [place] 10:52:00 10:52:00 -[id number] [facility] 2019-05-22 2019-05-22 Sim Onofre [facility] [place] - 7- [place] 00:00:00 00:00:00 MD Leno: [address], [facility] [place] [address] , Ph. 2019-05-07 2019-05-07 Sim Onofre MM [place] - 1827- [place] 00:00:00 00:00:00 MD Leno: [address] - [address], [facility] [place] [address] , Ph. 2019-03-26 2019-03-26 Outpatient NEHEMIAH DIGGS ALAN [facility] D000 [id number] [place] 11:28:00 11:28:00 -[id number] [facility] 2019-03-26 2019-03-26 Sim Onofre [facility] [place] - 1827- [place] 00:00:00 00:00:00 MD Leno: 022 da 600 [facility] [address], [facility] [place] [address] , Ph. 2019-01-09 2019-01-09 Emergency ER BRENDA BOBBY [facility] [id number] [place] 11:24:00 15:44:00 -[id number] [facility] 2018-12-28 2018-12-28 Outpatient NEHEMIAH DIGGS ALAN [facility] D000 [id number] [place] 11:31:00 11:31:00 -[id number] [facility] 2018-12-28 2018-12-28 Sim Onofre [facility] [place] - 1827- [place] 00:00:00 00:00:00 MD Leno: [address], [facility] [place] [address] , Ph. 2018-05-31 2018-05-31 Sim Onofre [facility] [place] - 1822- [place] 00:00:00 00:00:00 MD Leno: 227 [address] [facility] [address], [facility], [place] [address] , Ph. 2018-05-03 2018-05-03 Outpatient SIM HAWTHORNE [facility] D000 [id number] [place] 10:17:00 10:17:00 -[id number] [facility] 2018-04-05 2018-04-05 Outpatient EL BASIL DIGGSN [facility] D000 [id number] [place] 10:55:00 10:55:00 -[id number] [facility] 2016-07-27 2016-07-27 Emergency ER BRET, [facility] [id number] [place] 10:51:00 16:15:00 [facility] -[id number] [facility] 2016-05-31 2016-06-01 [facility] 4622 [id number] [facility] 12:55:00 05:59:00 r Tarpley 01 l [place] 2016-05-31 2016-06-01 [facility]patient [facility] 4622 [id number] [facility] 12:55:00 05:59:00 r Haris 01 l [place] 2016-05-31 2016-05-31 Outpatient Esau, [facility] SL [id number] 06:55:00 23:59:00 Tee 01 2016-05-02 2016-05-02 [facility] [id number] [facility] 13:55:11 21:05:00 Surgery r Tarpley 00 l [place] 2016-05-02 2016-05-02 [facility] [id number] [facility] 13:55:11 21:05:00 Surgery r Tarpley 00 l [place] 2016-05-02 2016-05-02 Outpatient Shoemaker, [facility] SL [id number] 07:55:11 15:05:00 Yanick Beth 2016-02-22 2016-02-22 Outpatient NEHEMIAH DIGGS SIM [facility] [id number] [id number] [place] 09:44:00 09:44:00 -[id number] [facility] 2016-02-02 2016-02-02 Outpatient NEHEMIAH DIGGS SIM [facility] D000 [id number] [place] 14:26:00 14:26:00 -[id number] [facility] 2016-01-14 2016-01-14 Outpatient NEHEMIAH DIGGS SIM [facility] D000 [id number] [place] 09:25:00 09:25:00 -[id number] [facility] 2015-09-25 2015-09-25 Outpatient NEHEMIAH DIGGS SIM [facility] D000 [id number] [place] 09:16:00 09:16:00 -[id number] [facility] 2014-10-17 2014-10-17 Outpatient DALILA HEBERT [facility] [id number] [place] 12:18:00 12:18:00 CAMILLE -[id number] [facility] 2014-10-10 2014-10-10 Emergency ER BRET, [facility] [id number] [place] 13:08:00 16:26:00 SADI -[id number] [facility] 2014-10-07 2014-10-07 Outpatient NEHEMIAH WING, [facility] [id number] [place] 17:22:00 17:22:00 CAMILLE -[id number] [facility] 2014-05-19 2014-05-19 Outpatient NEHEMIAH GODWIN, [facility] [id number] [place] 10:39:00 10:39:00 BEN -[id number] [facility] 2013-12-18 2013-12-18 Outpatient NEHEMIAH WING, [facility] [id number] [place] 09:03:00 09:03:00 CAMILLE -[id number] [facility] 2013-05-24 2013-05-24 Outpatient NEHEMIAH GODWIN, [facility] [id number] [place] 07:15:00 07:15:00 BEN -[id number] [facility] 2013-04-04 2013-04-04 Outpatient NEHEMIAH GODWIN, [facility] [id number] [place] 11:03:00 11:03:00 BEN -[id number] [facility] 2012-05-04 2012-05-04 Outpatient NEHEMIAH BARTON, [facility] [id number] [place] 10:03:00 10:03:00 KRYS -[id number] [facility] 2012-05-03 2012-05-03 Outpatient CLAIR BARTON, [facility] [id number] [place] 11:17:00 11:17:00 KRYS -[id number] [facility] 2012-04-30 2012-05-01 Emergency ER ERIK HCIN, [facility] D000 [id number] [place] 22:02:00 02:22:00 NORRIS [id number] [facility] 2012-03-27 2012-03-27 Outpatient NEHEMIAH HUSTON, [facility] [id number] [place] 16:26:00 16:26:00 CELIA -[id number] [facility] 2011-11-14 2011-11-14 Outpatient NEHEMIAH HUSTON, [facility] [id number] [place] 09:15:00 09:15:00 CELIA -[id number] [facility] 2010-08-23 2010-08-23 Emergency ER ANGIE, [facility] [id number] [place] 09:51:00 15:24:00 SHAKEEL -[id number] d a [facility] 2009-04-21 2009-04-21 Outpatient NEHEMIAH BARTON, [facility] [id number] [place] 11:32:00 11:32:00 KRYS -[id number] [facility] 2007-07-03 2007-07-03 Emergency ER UGTYSON, [facility] [id number] [place] 15:37:00 17:30:00 SADI -[id number] [facility] 1998-04-07 1998-04-08 Emergency ER SYLWIA, [facility] [id number] [place] 23:31:00 00:45:00 WILFRED -[id number] [facility] Results Test Description Test Time Test Comments Results Result Comments Source CBC W Auto Differential panel - Blood 2021-07-19 08:37:00 Test Item Value Reference Range Interpretation Comme nts white blood count (test code = white blood count) 5.9 K/uL 4.0- 11.5 red blood count (test code = red blood count) 4.28 M/uL 3.80-5.2 0 hemoglobin (test code = hemoglobin) 10.9 g/dL 10.5-15.7 hematocrit (test code = hematocrit) 37.0 % 34.0-50.0 MCV [Entitic volume] (test code = 20502-4) 86.4 fL 86.0-100.0 mean corpuscular hemoglobin (test code = mean corpuscular 25.5 pg 26.2-33.4 L hemoglobin) mean corpuscular HGB conc (test code = mean corpuscular HGB 29.5 g/dL 30.0-34.0 L conc) red cell distribution width (test code = red cell 18.1 % 12.0 -15.5 H distribution width) platelet count (test code = platelet count) 283 K/uL 165-450 mean platelet volume (test code = mean platelet volume) 11.4 fL 9.4-12.6 Segmented neutrophils/100 leukocytes in Blood (test code = 39.2 % 44.4-80.1 L 55917-5) Immature granulocytes [#/volume] in Blood (test code = 0.01 K/uL 0.00-0.03 43606-6) lymphocyte% (test code = lymphocyte%) 48.7 % 10.0-50.0 mono % (test code = mono %) 8.4 % 3.6-12.0 eos % (test code = eos %) 3.0 % 0.0-5.4 Basophils/100 leukocytes in Specimen (test code = 93557-7) 0.5 % 0.1-1.2 Band form neutrophils [#/volume] in Blood (test code = 2.33 K/uL 1.56-6.13 51188-8) Lymphocytes [#/volume] in Specimen by Automated count (test 2.89 K/uL 1.18-3.74 code = 20178-6) mono # (test code = mono #) 0.50 K/uL 0.24-0.86 eos # (test code = eos #) 0.18 K/uL 0.04-0.36 basophil # (test code = basophil #) 0.03 K/uL 0.01-0.08 NRBC% (test code = NRBC%) 0 /100 WBC 0-0.2 NRBC# (test code = NRBC#) 0 K/uL [facility] metabolic 2000 panel - Serum or [id number] 08:37:00 Test Item Value Reference Range Interpretation Comments Glucose [Mass/volume] in Serum or 95 mg/dL 82-115 Plasma (test code = 2345-7) Urea nitrogen [Mass/volume] in 16 mg/dL 8-23 Serum or Plasma (test code = 3094-0) osmolality calculated,serum (test 279 mOsm/kg 280-300 L code = osmolality calculated,serum) creatinine (test code = 0.56 mg/dL 0.50-0.90 creatinine) glomerular filtration rate (test >60.00 code = glomerular filtration rate) Urea nitrogen/Creatinine [Mass 28.6 12.0-20.0 H Ratio] in Serum or Plasma (test code = 3097-3) sodium level (test code = sodium 139 mmol/L 135-145 level) potassium level (test code = 4.2 mmol/L 3.5-5.2 potassium level) chloride level (test code = 102 mmol/L 98-108 chloride level) CO2 (test code = CO2) 24 mmol/L 21-32 anion gap (test code = anion gap) 17.2 mEq/L 12.0-20.0 calcium level (test code = 9.6 mg/dL 8.8-10.2 calcium level) [facility] - Serum or [id number] 08:37:00 Test Item Value Reference Range Interpretation Comments cholesterol level (test code = 195 mg/dL 150-200 cholesterol level) triglycerides level (test code = 280 mg/dL <150 H triglycerides level) HDL cholesterol (test code = HDL 51 mg/dL >65 L cholesterol) LDL cholesterol direct (test code = 105 mg/dL <100 H LDL cholesterol direct) cholesterol risk ratio (test code = 3.823 cholesterol risk ratio) [facility], method unspecified - [id number] 00:00:00NeutrophilsBandLymphocyteAtypical LymphMonocyteEosinophilBasophilAbs Neutrophil Count (Man)Abs LymphCount (Man)Abs Monocyte Count (Man)Abs Eosinophil Count (Man)Abs Basophil Count (Man)Platelet EstimatePlatelet MorphologyAnisocytosisMicrocytosisMataJefferson Davis Community HospitalPotassium Level 2019-08-23 09:37:59 Test Item Value Reference Range Interpretation Comments Potassium Level (test code = 3.3 mmol/L 3.5-5.1 L Potassium Level) Basic Metabolic [id number] 08:39:57 Test Item Value Reference Range Interpretation [...] 8.3-10.5 code = Calcium Level) Basic Metabolic [id number] 08:39:57 Test Item Value Reference Range Interpretation [...] National Kidney Foundation, http://nkdep.ni h.gov Basic Metabolic [id number] 08:39:57 Test Item Value Reference Range Interpretation Comments Sodium Level (test 132.0 mmol/L 135.0-145.0 L code = Sodium Level) Potassium Level >10.0 mmol/L 3.5-5.1 Critical res ults (test code = called to [facility] Potassium Level) at 0 08:39:49 CDT [...] ag e have not been validated by [facility] MDRD study and should be interpreted wit [...] ag e have not been validated by [facility] MDRD study and should be interpreted wit h caution. eGFR R esult Interpretation: eGFR > or = 60 is in the Normal RangeeGF R < 60 may mean kid steve diseaseeGFR < 1 5 may mean kidney failure Rang es recommended by the National Kidney Foundation, http://nkdep.ni h.gov Prothrombin Time and [id number] 08:30:21 Test Item Value Reference Range Interpretation Comments Prothrombin Time (test code = 12.2 seconds 9.8-13.4 Prothrombin Time) INR (test code = INR) 1.0 ratio 0.6-1.2 Partial Thromboplastin [id number] 08:30:21 Test Item Value Reference Range Interpretation Comments Partial Thromboplastin Time 33.10 seconds 24.39-37.25 (test code = Partial Thromboplastin Time) Complete Blood Count with Kkvhgtypekug6993-81-11 08:21:36 Test Item Value Reference Range Interpretation [...] code = IPF) 0 % N Automated Nvldykvnsqjc4061-91-31 08:21:36 Test Item Value Reference Range Interpretation Comments Neutro Auto (test code = Neutro 41.9 % 36.0-70.0 Auto) Lymph Auto (test code = Lymph Auto) 45.2 % 12.0-44.0 H Barnwell Auto (test code = Barnwell Auto) 10.5 % 0.0-11.0 Eos, Auto (test code = Eos, Auto) 1.7 % 0.0-7.0 Basophil Auto (test code = Basophil 0.4 % 0.0-2.0 Auto) Neutro Absolute (test code = Neutro 2.9 x10 1.6-7.4 Absolute) Lymph Absolute (test code = Lymph 3.11 x10 .50-4.60 Absolute) Barnwell Absolute (test code = Barnwell .72 x10 .00-1.20 Absolute) Eos Absolute (test code = Eos 0.12 x10 0.00-0.74 Absolute) Baso Absolute (test code = Baso 0.03 x10 0.00-0.21 Absolute) IG [id number] 08:21:36 Test Item Value Reference Range Interpretation Comments IG (test code = IG) 0.3 % 0.0-5.0 IG Abs (test code = IG Abs) 0 x10 N CBC W Auto Differential panel - [id number] 07:27:00 Test Item Value Reference Range Interpretation Comments white blood count (test code = 5.6 K/uL 4.0-11.5 white blood count) red blood count (test code = red 4.54 M/uL 3.80-5.20 blood count) hemoglobin (test code = 10.5 g/dL 10.5-15.7 hemoglobin) hematocrit (test code = 34.3 % 34.0-50.0 hematocrit) Erythrocyte mean corpuscular 75.6 fL 86-100 L volume [Entitic volume] (test code = 66902-5) mean corpuscular hemoglobin (test 23.1 pg 26.2-33.4 [...] 44.4-80.1 leukocytes in Blood (test code = 65653-3) Granulocytes Immature [#/volume] 0.0 K/uL 0.0-0.03 in Blood (test code = 95649-3) lymphocyte% (test code = 37.5 % 10.0-50.0 lymphocyte%) mono % (test code = mono %) 6.9 % 3.6-12.0 eos % (test code = eos %) 3.0 % 0.0-5.4 Basophils/100 leukocytes in 0.5 % 0.1-1.2 Unspecified specimen (test code = 02783-0) Neutrophils.band form [#/volume] 2.92 K/uL 1.56-6.13 in Blood (test code = 18694-4) Lymphocytes [#/volume] in 2.1 K/uL 1.18-3.74 Unspecified specimen by Automated count (test code = 65690-4) mono # (test code = mono #) 0.39 K/uL 0.24-0.86 eos # (test code = eos #) 0.17 K/uL 0.04-0.36 basophil # (test code = basophil 0.03 K/uL 0.01-0.08 #) NRBC% (test code = NRBC%) 0 /100 WBC 0-0.2 NRBC# (test code = NRBC#) 0 K/uL [facility], [id number] 07:27:00 NeutrophilsBandLymphocyteAtypical LymphMonocyteEosinophilMetamyelocyteMyelocytePlatelet EstimatePlatelet MorphologyDifferential comment-[facility] HospitalComprehensive [facility] 2000 panel - Serum or [id number] 07:27:00 Test Item Value Reference Range Interpretation [...] Serum or Plasma (test code = 6768-6) [facility] GroupTroponin I.cardiac [Mass/volume] in [id number] 07:27:00 Test Item Value Reference Range Interpretation Comments cardiac troponin I (test code = cardiac <0.30 0.0-0.5 troponin I) [facility].MB [Mass/volume] in Serum or Plasma 2019-06-29 07:27:00 Test Item Value Reference Range Interpretation Comments mass creatinine kinase-mb (test 1.7 NG/mL 0.0-3.6 code = mass creatinine kinase-mb) [facility] I.cardiac [Mass/volume] in [id number] 11:38:00 Test Item Value Reference Range Interpretation Comments cardiac troponin I (test code = cardiac <0.30 0.0-0.5 troponin I) [facility] kinase.MB [Mass/volume] in Serum or Plasma 2019-06-28 11:38:00 Test Item Value Reference Range Interpretation Comments mass creatinine kinase-mb (test 1.6 NG/mL 0.0-3.6 code = mass creatinine kinase-mb) [facility] [id number] 08:35:00 Test Item Value Reference Range Interpretation Comments Surgical pathology see separate pathology study (test code = report. 02265-0) [facility]rop[facility] I.cardiac [Mass/volume] in [id number] 06:27:00 Test Item Value Reference Range Interpretation Comments cardiac troponin I (test code = cardiac <0.30 0.0-0.5 troponin I) [facility].MB [Mass/volume] in Serum or Plasma 2019-06-28 06:27:00 Test Item Value Reference Range Interpretation Comments mass creatinine kinase-mb (test 1.7 NG/mL 0.0-3.6 code = mass creatinine kinase-mb) [facility] [Enzymatic activity/volume] in Serum or [id number] 01:44:00 Test Item Value Reference Range Interpretation Comments creatine kinase (test code = creatine 40 U/L 20-180 kinase) [facility] I.cardiac [Mass/volume] in [id number] 01:44:00 Test Item Value Reference Range Interpretation Comments cardiac troponin I (test code = cardiac <0.30 0.0-0.5 troponin I) [facility] kinase.MB [Mass/volume] in Serum or Plasma 2019-06-28 01:44:00 Test Item Value Reference Range Interpretation Comments mass creatinine kinase-mb (test 1.5 NG/mL 0.0-3.6 code = mass creatinine kinase-mb) [facility] W Auto Differential panel - [id number] 10:00:00 Test Item Value Reference Range Interpretation Comments white blood count (test code = 7.0 K/uL 4.0-11.5 white blood count) red blood count (test code = red 4.56 M/uL 3.80-5.20 blood count) hemoglobin (test code = 11.0 g/dL 10.5-15.7 hemoglobin) hematocrit (test code = 34.2 % 34.0-50.0 hematocrit) Erythrocyte mean corpuscular 75.0 fL 86-100 L volume [Entitic volume] (test code = 52405-3) mean corpuscular hemoglobin (test 24.1 pg 26.2-33.4 [...] 44.4-80.1 leukocytes in Blood (test code = 38923-3) Granulocytes Immature [#/volume] 0.0 K/uL 0.0-0.03 in Blood (test code = 63968-0) lymphocyte% (test code = 44.7 % 10.0-50.0 lymphocyte%) mono % (test code = mono %) 8.6 % 3.6-12.0 eos % (test code = eos %) 0.9 % 0.0-5.4 Basophils/100 leukocytes in 0.6 % 0.1-1.2 Unspecified specimen (test code = 43562-2) Neutrophils.band form [#/volume] 3.16 K/uL 1.56-6.13 in Blood (test code = 83801-8) Lymphocytes [#/volume] in 3.1 K/uL 1.18-3.74 Unspecified specimen by Automated count (test code = 34305-7) mono # (test code = mono #) 0.60 K/uL 0.24-0.86 eos # (test code = eos #) 0.06 K/uL 0.04-0.36 basophil # (test code = basophil 0.04 K/uL 0.01-0.08 #) NRBC% (test code = NRBC%) 0 /100 WBC 0-0.2 NRBC# (test code = NRBC#) 0 K/uL [facility], [id number] 10:00:00 NeutrophilsBandLymphocyteAtypical LymphMonocytePlatelet EstimateNorth Mississippi Medical CenterATOLOGY2016-12-27 14:00:00 Test Item Value Reference Range Interpretation Comments Eosinophils # (test code 0.2 See_Comment [A utomated message] The = Eosinophils #) system [facility] generated this result tra nsmitted reference range : <=0.5. The reference r caren was not used to int erpret this result as normal/abnormal . [facility] WorthU[id number] 14:00:00 Test Item Value Reference Range Interpretation Comments Monocytes (test code = Monocytes) 5.5 2.0-12.0 [facility] [id number] 14:00:00 Test Item Value Reference Range Interpretation Comments Segs (test code = Segs) 57.7 45.0-75.0 [facility] WorthTaakvopWIKXRNWLVM6226-12-03 14:00:00 Test Item Value Reference Range Interpretation Comments Lymphocytes (test code = Lymphocytes) 33.5 20.0-40.0 [facility] Wor[id number] 14:00:00 Test Item Value Reference Range Interpretation Comments Eosinophils (test code = 2.9 See_Comment [A utomated message] The Eosinophils) system which ge nerated this result tra nsmitted reference range : <=4.0. The reference r caren was not used to int erpret this result as normal/abnormal . [facility] Wor[id number] 14:00:00 Test Item Value Reference Range Interpretation Comments Segs-Bands # (test code = Segs-Bands #) 4.9 1.5-8.1 [facility] [id number] 14:00:00 Test Item Value Reference Range Interpretation Comments Lymphocytes # (test code = Lymphocytes 2.9 1.0-5.5 #) [facility] WorthD[id number] 14:00:00 Test Item Value Reference Range Interpretation Comments Monocytes # (test code 0.5 See_Comment [Aut omated message] The = Monocytes #) system which generated this result tra nsmitted reference range : <=0.8. The reference r caren was not used to int erpret this result as normal/abnormal . [facility] WorthNdhkjjgELHTUULALJ9644-68-83 14:00:00 Test Item Value Reference Range Interpretation Comments Basophils (test code = 0.4 See_Comment [Aut omated message] The Basophils) system which ge nerated this result tra nsmitted reference range : <=1.0. The reference r caren was not used to int erpret this result as normal/abnormal . [facility] WorthFsbdarvTYRWOZULHE6675-02-62 14:00:00 Test Item Value Reference Range Interpretation Comments Basophils # (test code 0.0 See_Comment [Aut omated message] The = Basophils #) system which generated this result tra nsmitted reference range : <=0.2. The reference r caren was not used to int erpret this result as normal/abnormal . [facility] Wor[id number] 14:00:00 Test Item Value Reference Range Interpretation Comments Large Plt (test code = Large Plt) Slight [facility] WorthXeaagjvEJLUGUTLVD4295-08-04 14:00:00 Test Item Value Reference Range Interpretation Comments Hgb (test code = Hgb) 13.3 12.0-16.0 [facility] WorthAxjhmoaYWNSADZAGV1835-01-12 14:00:00 Test Item Value Reference Range Interpretation Comments WBC (test code = WBC) 8.5 3.7-10.4 [facility] WorthFrrrdonSETQHMGFUM7175-40-16 14:00:00 Test Item Value Reference Range Interpretation Comments RBC (test code = RBC) 4.72 4.20-5.40 [facility] WorthFzavcanUPTAUQAVNT0440-60-58 14:00:00 Test Item Value Reference Range Interpretation Comments MCHC (test code = MCHC) 32.7 32.0-36.0 [facility] WorthEdmxvswVKMXHHUGBV9686-98-64 14:00:00 Test Item Value Reference Range Interpretation Comments MCH (test code = MCH) 28.2 pg 27.0-31.0 [facility] WorthGacicbuVJDUSVLOHW1364-37-89 14:00:00 Test Item Value Reference Range Interpretation Comments RDW (test code = RDW) 15.7 11.5-14.5 [facility] WorthLozwyewEPURWJIFRU5702-59-62 14:00:00 Test Item Value Reference Range Interpretation Comments MCV (test code = MCV) 86.5 80.0-98.0 [facility] WorthVosasnlFLAYTKWGXE1916-75-68 14:00:00 Test Item Value Reference Range Interpretation Comments Hct (test code = Hct) 40.8 36.0-48.0 [facility] WorthSvgiwqlJEUJVSRAIK5549-97-91 14:00:00 Test Item Value Reference Range Interpretation Comments MPV (test code = MPV) 9.6 7.4-10.4 [facility] WorthYadzqmaOKNUCROOBT7945-12-23 14:00:00 Test Item Value Reference Range Interpretation Comments Platelet (test code = Platelet) 268 133-450 [facility] WorthNcwvqerQTCPZCDKDP7497-89-28 14:00:00 Test Item Value Reference Range Interpretation Comments PT (test code = PT) 13.5 s 12.0-14.7 [facility] WorthJzcccgkMAQNIIJWMP2289-34-59 14:00:00 Test Item Value Reference Range Interpretation Comments INR (test code = INR) 1.01 0.85-1.17 [facility] WorthSprnypuSZGKFSWNNH1739-88-72 14:00:00 Test Item Value Reference Range Interpretation Comments PTT (test code = PTT) 33.2 s 22.9-35.8 [facility] WorthGmyxztzSRJGWECLYI2905-25-48 14:00:00 Test Item Value Reference Range Interpretation Comments Platelet (test code = Platelet) 276 133-450 [facility] WorthEkbmixqXGYDHYPVGA6935-48-10 14:00:00 Test Item Value Reference Range Interpretation Comments Eosinophils # (test code 0.2 See_Comment [A utomated message] The = Eosinophils #) system ic h generated this result tra nsmitted reference range : <=0.5. The reference r caren was not used to int erpret this result as normal/abnormal . [facility] WorthJazbdmsMTZVZKENQT2012-08-95 14:00:00 Test Item Value Reference Range Interpretation Comments Monocytes (test code = Monocytes) 5.5 2.0-12.0 [facility] WorthUphrkbwMXVAJAFJCV7543-83-03 14:00:00 Test Item Value Reference Range Interpretation Comments Segs (test code = Segs) 57.7 45.0-75.0 [facility] WorthVadsjzyKZTFWSEVLE9719-32-67 14:00:00 Test Item Value Reference Range Interpretation Comments Lymphocytes (test code = Lymphocytes) 33.5 20.0-40.0 [facility] WorthJveupumQNDIGGCGPQ8375-43-46 14:00:00 Test Item Value Reference Range Interpretation Comments Eosinophils (test code = 2.9 See_Comment [A utomated message] The Eosinophils) system which ge nerated this result tra nsmitted reference range : <=4.0. The reference r caren was not used to int erpret this result as normal/abnormal . [facility] WorthGmfxywyBIXEOCWFSW1006-91-08 14:00:00 Test Item Value Reference Range Interpretation Comments Segs-Bands # (test code = Segs-Bands #) 4.9 1.5-8.1 [facility] WorthRyfsewpIMPQIMFMOK4832-38-55 14:00:00 Test Item Value Reference Range Interpretation Comments Lymphocytes # (test code = Lymphocytes 2.9 1.0-5.5 #) [facility] WorthCnfrjrfSXCHGLESZG3000-36-29 14:00:00 Test Item Value Reference Range Interpretation Comments Monocytes # (test code 0.5 See_Comment [Aut omated message] The = Monocytes #) system which generated this result tra nsmitted reference range : <=0.8. The reference r caren was not used to int erpret this result as normal/abnormal . [place] [address]-12-27 14:00:00 Test Item Value Reference Range Interpretation Comments Basophils (test code = 0.4 See_Comment [Aut omated message] The Basophils) system which ge nerated this result tra nsmitted reference range : <=1.0. The reference r caren was not used to int erpret this result as normal/abnormal . [facility] WorthTzmeewgYCWYKNALQF1148-07-42 14:00:00 Test Item Value Reference Range Interpretation Comments Basophils # (test code 0.0 See_Comment [Aut omated message] The = Basophils #) system which generated this result tra nsmitted reference range : <=0.2. The reference r caren was not used to int erpret this result as normal/abnormal . [facility] WorthTxzkoitNFNLWBBXQI5427-83-31 14:00:00 Test Item Value Reference Range Interpretation Comments Large Plt (test code = Large Plt) Slight [facility] WorthZbonnclKCZPKMTRXH0793-53-10 14:00:00 Test Item Value Reference Range Interpretation Comments Hgb (test code = Hgb) 13.3 12.0-16.0 [facility] WorthVskratdLZVDKHICJC3047-83-57 14:00:00 Test Item Value Reference Range Interpretation Comments WBC (test code = WBC) 8.5 3.7-10.4 [facility] WorthXbguladKHNUBRIZVB7469-03-19 14:00:00 Test Item Value Reference Range Interpretation Comments RBC (test code = RBC) 4.72 4.20-5.40 [facility] WorthQhebuaoJEPHSYVBCI9663-75-88 14:00:00 Test Item Value Reference Range Interpretation Comments MCHC (test code = MCHC) 32.7 32.0-36.0 [facility] WorthPfptbctMLGRTRYZVR5822-98-29 14:00:00 Test Item Value Reference Range Interpretation Comments MCH (test code = MCH) 28.2 pg 27.0-31.0 [facility] WorthDmyvpulPWMLWPQLNW7720-38-12 14:00:00 Test Item Value Reference Range Interpretation Comments RDW (test code = RDW) 15.7 11.5-14.5 [facility] WorthHfwfwjhRYTCKFYBHK0832-28-27 14:00:00 Test Item Value Reference Range Interpretation Comments MCV (test code = MCV) 86.5 80.0-98.0 [facility] WorthZypqctrHNXMTIDAQI8443-13-79 14:00:00 Test Item Value Reference Range Interpretation Comments Hct (test code = Hct) 40.8 36.0-48.0 [facility] WorthKsdsrshLIUPOQJJAW1270-72-05 14:00:00 Test Item Value Reference Range Interpretation Comments MPV (test code = MPV) 9.6 7.4-10.4 [facility] WorthRdotadeYQAIUBTNBS8888-52-93 14:00:00 Test Item Value Reference Range Interpretation Comments Platelet (test code = Platelet) 820 079-451 [facility] WorthOnldspxFJVSTQJAJW6646-83-35 14:00:00 Test Item Value Reference Range Interpretation Comments PT (test code = PT) 13.5 s 12.0-14.7 [facility] WorthGnihnqiWZYYDGWSCV1178-73-84 14:00:00 Test Item Value Reference Range Interpretation Comments INR (test code = INR) 1.01 0.85-1.17 [facility] WorthApqwjhqOTFXNFABTK1445-58-78 14:00:00 Test Item Value Reference Range Interpretation Comments PTT (test code = PTT) 33.2 s 22.9-35.8 [facility] WorthSjhkwsgUWQWJJXYLF5494-68-70 14:00:00 Test Item Value Reference Range Interpretation Comments Platelet (test code = Platelet) 276 803-944 [facility] WorthRxfentmDZBDQLUGZG6529-91-71 17:44:00 Test Item Value Reference Range Interpretation Comments MCH (test code = MCH) 28.2 pg 27.0-31.0 [facility] WorthInusvyhKGXUYEPJEQ9266-48-10 17:44:00 Test Item Value Reference Range Interpretation Comments RDW (test code = RDW) 15.2 11.5-14.5 [facility] WorthQrooqneWFESNAOGGV8724-87-13 17:44:00 Test Item Value Reference Range Interpretation Comments Hgb (test code = Hgb) 12.6 12.0-16.0 [facility] WorthZghxvjeGVFJYBJCFW2980-97-01 17:44:00 Test Item Value Reference Range Interpretation Comments Hct (test code = Hct) 38.0 36.0-48.0 [facility] WorthMnidsgrPIFCVQKPNH4198-00-79 17:44:00 Test Item Value Reference Range Interpretation Comments MCV (test code = MCV) 85.0 80.0-98.0 [facility] WorthLkotcecCJXLHYPGQQ5532-75-23 17:44:00 Test Item Value Reference Range Interpretation Comments WBC (test code = WBC) 8.8 3.7-10.4 [facility] WorthAhsndukONMUFYZFAS5744-36-32 17:44:00 Test Item Value Reference Range Interpretation Comments RBC (test code = RBC) 4.47 4.20-5.40 [facility] WorthHccgpruKRGGREHCHW8298-22-50 17:44:00 Test Item Value Reference Range Interpretation Comments Basophils # (test code 0.1 See_Comment [Aut omated message] The = Basophils #) system which generated this result tra nsmitted reference range : <=0.2. The reference r caren was not used to int erpret this result as normal/abnormal . [place] 593336-11-21 17:44:00 Test Item Value Reference Range Interpretation Comments Eosinophils # (test code 0.1 See_Comment [A utomated message] The = Eosinophils #) system whic h generated this result tra nsmitted reference range : <=0.5. The reference r caren was not used to int erpret this result as normal/abnormal . [facility] WorthYpcnmlgUTHNZQEZQR0103-67-13 17:44:00 Test Item Value Reference Range Interpretation Comments Eosinophils (test code = 1.3 See_Comment [A utomated message] The Eosinophils) system which ge nerated this result tra nsmitted reference range : <=4.0. The reference r caren was not used to int erpret this result as normal/abnormal . [facility] WorthQlcxatdBLAEBTUIEJ2314-62-56 17:44:00 Test Item Value Reference Range Interpretation Comments Monocytes (test code = Monocytes) 6.7 2.0-12.0 [facility] WorthDmvuufuLWKLFYGXNO3672-37-03 17:44:00 Test Item Value Reference Range Interpretation Comments Lymphocytes # (test code = Lymphocytes 2.9 1.0-5.5 #) [facility] WorthLrnuozvNZBGYVBUUE8939-85-61 17:44:00 Test Item Value Reference Range Interpretation Comments Monocytes # (test code 0.6 See_Comment [Aut omated message] The = Monocytes #) system which generated this result tra nsmitted reference range : <=0.8. The reference r caren was not used to int erpret this result as normal/abnormal . [place] 593336-11-21 17:44:00 Test Item Value Reference Range Interpretation Comments Lymphocytes (test code = Lymphocytes) 33.2 20.0-40.0 [place] 593336-11-21 17:44:00 Test Item Value Reference Range Interpretation Comments Segs-Bands # (test code = Segs-Bands #) 5.1 1.5-8.1 [facility] WorthSvjpsneAKULXHZGSC7532-12-76 17:44:00 Test Item Value Reference Range Interpretation Comments Basophils (test code = 0.6 See_Comment [Aut omated message] The Basophils) system which ge nerated this result tra nsmitted reference range : <=1.0. The reference r caren was not used to int erpret this result as normal/abnormal . [facility] WorthUupedohMNKPPSHRBY9342-32-54 17:44:00 Test Item Value Reference Range Interpretation Comments Segs (test code = Segs) 58.2 45.0-75.0 [facility]2016-11-21 17:44:00 Test Item Value Reference Range Interpretation Comments eGFR (test code = eGFR) 97 [facility]2016-11-21 17:44:00 Test Item Value Reference Range Interpretation Comments Sodium Lvl (test code = Sodium Lvl) 137 135-145 [facility]2016-11-21 17:44:00 Test Item Value Reference Range Interpretation Comments BUN (test code = BUN) 16 7-22 [facility]2016-11-21 17:44:00 Test Item Value Reference Range Interpretation Comments CO2 (test code = CO2) 27 24-32 [facility]2016-11-21 17:44:00 Test Item Value Reference Range Interpretation Comments Creatinine Lvl (test code = Creatinine 0.60 0.50-1.40 Lvl) [facility]2016-11-21 17:44:00 Test Item Value Reference Range Interpretation Comments Glucose Lvl (test code = Glucose Lvl) 97 70-99 [facility]2016-11-21 17:44:00 Test Item Value Reference Range Interpretation Comments Potassium Lvl (test code = Potassium 4.0 3.5-5.1 Lvl) [facility]2016-11-21 17:44:00 Test Item Value Reference Range Interpretation Comments Calcium Lvl (test code = Calcium Lvl) 9.0 8.5-10.5 [facility]2016-11-21 17:44:00 Test Item Value Reference Range Interpretation Comments Chloride Lvl (test code = Chloride Lvl) 101 95-109 [facility]2016-11-21 17:44:00 Test Item Value Reference Range Interpretation Comments AGAP (test code = AGAP) 13.0 10.0-20.0 [facility] WorthYvediglYBZMXVCRRT2526-75-68 17:44:00 Test Item Value Reference Range Interpretation Comments MPV (test code = MPV) 8.6 7.4-10.4 [facility] WorthHdfvsovSCQJEFQAOI3107-12-54 17:44:00 Test Item Value Reference Range Interpretation Comments Platelet (test code = Platelet) 323 133-450 [facility] WorthUbgsqvyNYLKERHUUX3681-49-46 17:44:00 Test Item Value Reference Range Interpretation Comments MCHC (test code = MCHC) 33.2 32.0-36.0 [facility]2016-11-21 17:44:00 Test Item Value Reference Range Interpretation Comments eGFR (test code = eGFR) 97 [facility]2016-11-21 17:44:00 Test Item Value Reference Range Interpretation Comments Sodium Lvl (test code = Sodium Lvl) 137 135-145 [facility]2016-11-21 17:44:00 Test Item Value Reference Range Interpretation Comments BUN (test code = BUN) 16 7-22 [facility]2016-11-21 17:44:00 Test Item Value Reference Range Interpretation Comments CO2 (test code = CO2) 27 24-32 [facility]2016-11-21 17:44:00 Test Item Value Reference Range Interpretation Comments Creatinine Lvl (test code = Creatinine 0.60 0.50-1.40 Lvl) [facility]2016-11-21 17:44:00 Test Item Value Reference Range Interpretation Comments Glucose Lvl (test code = Glucose Lvl) 97 70-99 [facility]2016-11-21 17:44:00 Test Item Value Reference Range Interpretation Comments Potassium Lvl (test code = Potassium 4.0 3.5-5.1 Lvl) [facility]2016-11-21 17:44:00 Test Item Value Reference Range Interpretation Comments Calcium Lvl (test code = Calcium Lvl) 9.0 8.5-10.5 [facility]2016-11-21 17:44:00 Test Item Value Reference Range Interpretation Comments Chloride Lvl (test code = Chloride Lvl) 101 95-109 [facility]2016-11-21 17:44:00 Test Item Value Reference Range Interpretation Comments AGAP (test code = AGAP) 13.0 10.0-20.0 [facility] WorthWhpqwlfAQHPGNAFAV7122-16-44 17:44:00 Test Item Value Reference Range Interpretation Comments MPV (test code = MPV) 8.6 7.4-10.4 [facility] WorthSrsxumzPOTYLZJYSG1817-65-86 17:44:00 Test Item Value Reference Range Interpretation Comments Platelet (test code = Platelet) 323 133-450 [facility] WorthJvwnpxmZYKQTCZBER6333-19-40 17:44:00 Test Item Value Reference Range Interpretation Comments MCHC (test code = MCHC) 33.2 32.0-36.0 [facility] WorthAplvlkuLWJAVXAFII8354-49-01 17:44:00 Test Item Value Reference Range Interpretation Comments MCH (test code = MCH) 28.2 pg 27.0-31.0 [facility] WorthGvirzryQHEYSBKXCY0020-40-05 17:44:00 Test Item Value Reference Range Interpretation Comments RDW (test code = RDW) 15.2 11.5-14.5 [facility] WorthAtqspubHOJRERURXD3937-43-03 17:44:00 Test Item Value Reference Range Interpretation Comments Hgb (test code = Hgb) 12.6 12.0-16.0 [facility] WorthIvmssxlGKPGQVUMFA7961-63-15 17:44:00 Test Item Value Reference Range Interpretation Comments Hct (test code = Hct) 38.0 36.0-48.0 [facility] WorthDdlvbveVTOKSETIWY1182-76-89 17:44:00 Test Item Value Reference Range Interpretation Comments MCV (test code = MCV) 85.0 80.0-98.0 [facility] WorthPiempuvLFQGUUJPAN3629-78-51 17:44:00 Test Item Value Reference Range Interpretation Comments WBC (test code = WBC) 8.8 3.7-10.4 [facility] WorthYcnabcnURGQZDFWXO2824-81-57 17:44:00 Test Item Value Reference Range Interpretation Comments RBC (test code = RBC) 4.47 4.20-5.40 [facility] WorthCcnrhanIFPKIMIWLB5368-75-09 17:44:00 Test Item Value Reference Range Interpretation Comments Basophils # (test code 0.1 See_Comment [Aut omated message] The = Basophils #) system which generated this result tra nsmitted reference range : <=0.2. The reference r caren was not used to int erpret this result as normal/abnormal . [facility] WorthBakioorBGQYSUKAWG1082-07-02 17:44:00 Test Item Value Reference Range Interpretation Comments Eosinophils # (test code 0.1 See_Comment [A utomated message] The = Eosinophils #) system whic h generated this result tra nsmitted reference range : <=0.5. The reference r caren was not used to int erpret this result as normal/abnormal . [facility] WorthUtowznxTNLWOLDBAN7956-74-50 17:44:00 Test Item Value Reference Range Interpretation Comments Eosinophils (test code = 1.3 See_Comment [A utomated message] The Eosinophils) system which ge nerated this result tra nsmitted reference range : <=4.0. The reference r caren was not used to int erpret this result as normal/abnormal . [facility] WorthOxvqixhVNQVNOTORJ9065-39-49 17:44:00 Test Item Value Reference Range Interpretation Comments Monocytes (test code = Monocytes) 6.7 2.0-12.0 [facility] WorthVfexajaMVNSQTQYKI8890-14-80 17:44:00 Test Item Value Reference Range Interpretation Comments Lymphocytes # (test code = Lymphocytes 2.9 1.0-5.5 #) [facility] WorthXzqvignXYRSNVYQGO3716-57-08 17:44:00 Test Item Value Reference Range Interpretation Comments Monocytes # (test code 0.6 See_Comment [Aut omated message] The = Monocytes #) system which generated this result tra nsmitted reference range : <=0.8. The reference r caren was not used to int erpret this result as normal/abnormal . [facility] WorthMfprvwsHTYWEPTPWO5634-07-73 17:44:00 Test Item Value Reference Range Interpretation Comments Lymphocytes (test code = Lymphocytes) 33.2 20.0-40.0 [facility] WorthBfyankgFAFCACGAID1244-99-45 17:44:00 Test Item Value Reference Range Interpretation Comments Segs-Bands # (test code = Segs-Bands #) 5.1 1.5-8.1 [facility] WorthTlmoqcoBNTCMFGVBT3426-09-30 17:44:00 Test Item Value Reference Range Interpretation Comments Basophils (test code = 0.6 See_Comment [Aut omated message] The Basophils) system which ge nerated this result tra nsmitted reference range : <=1.0. The reference r caren was not used to int erpret this result as normal/abnormal . [facility]UMMEDNV5019-55-49 17:44:00 Test Item Value Reference Range Interpretation Comments Segs (test code = Segs) 58.2 45.0-75.0 [facility]
[2022-05-26 09:53] LABS: Absolute Lymphocytes (CBC) 1.5 K/uL (0.7-4.9); Hematocrit 39.5 % (36.0-45.0); Lymphocytes % 12.6 % (15.3-44.8); MCV 87.1 fL (80-100); MPV 8.4 fL (7.6-11.3); RBC Red Blood Cell Count 4.53 M/uL (3.86-4.86)
[2022-05-26 10:12] LABS: Albumin 3.5 g/dL (3.4-5.0); Bilirubin Total 0.6 mg/dL (0.2-1.0); Potassium 3.7 mmol/L (3.5-5.1); Protein, Total 7.1 g/dL (6.4-8.2)
--- NOTE | 2022-05-26 11:12 | RAD REPORT ---
EXAM DESCRIPTION: CTAbdomen Pelvis W Contrast - 05/26/2022 10:52 am CLINICAL HISTORY: Abdominal pain. asdfsd COMPARISON: Abdomen Pelvis W Contrast dated 06/08/2021; Abdomen Pelvis W Contrast dated 02/22/2019 TECHNIQUE: Biphasic CT imaging of the abdomen and pelvis was performed with 100 ml non-ionic IV cont rast. All CT scans are performed using dose optimization technique as appropriate and may include automated exposure control or mA/KV adjustment according to patient size. FINDINGS: The lung bases are clear. The liver demonstrates diffuse fatty infiltration. The spleen, pancreas, adrenal glands and kidneys a re within normal limits. Aortic atherosclerosis. No bowel obstruction, free air, free fluid or abscess. There is mild inflammation seen the splenic fl exure region of the colon. The appendix is normal. No evidence of significant lymphadenopathy. No suspicious bony findings. IMPRESSION: Mild inflammation is seen involving the splenic flexure of the colon suspicious for coli tis. Diffuse fatty liver.
--- NOTE | 2022-05-26 11:36 | ER ---
Nurse's Notes [facility] Name: Gregoria Vela Age: 72 yrs Sex: Female : 1950 Arrival Date: 05/26/2022 Time: 09:01 Bed 6 Private MD: Diagnosis: Left sided colitis without complications;Lower abdominal pain, unspecified Presentation: 05/26 09:16 Chief complaint: Patient states: constipation x 1 week. Pt believes she may be ss impacated. Coronavirus screen: Client denies travel out of the [place] in the last 14 days. Ebola Screen: Patient denies exposure to infectious person. Patient denies travel to an Ebola-affected area in the 21 days before illness onset. Initial Sepsis Screen: Does the patient meet any 2 criteria? No. Patient's initial sepsis screen is negative. Does the patient have a suspected source of infection? No. Patient's initial sepsis screen is negative. Risk Assessment: Do you want to hurt yourself or someone else? Patient reports no desire to harm self or others. Onset of symptoms was May 19, 2022. 09:16 Method Of Arrival: Ambulatory ss 09:16 Acuity: ERIC 3 ss Historical: - Allergies: 09:17 ACETAMINOPHEN; ss 09:17 Hydrocodone-Acetaminophen; ss - PMHx: 09:17 cardiac stent; Hyperlipidemia; Hypertension; CAD; LYMPHOMA; plate in head; skin cancer; ss - PSHx: 09:17 plate in head; ss - Immunization history:: Adult Immunizations unknown. - Social history:: Smoking status: Patient denies any tobacco usage or history of. Screenin:41 [facility] ED Fall Risk Assessment (Adult) History of falling in the last 3 months, kc6 including since admission No falls in past 3 months (0 pts) Confusion or Disorientation No (0 pts) Intoxicated or Sedated No (0 pts) Impaired Gait No (0 pts) Mobility Assist Device Used No (0 pt) Altered Elimination No (0 pt) Score/Fall Risk Level 0 - 2 = Low Risk. Abuse screen: Denies threats or abuse. Denies injuries from another. Nutritional screening: No deficits noted. Tuberculosis screening: No symptoms or risk factors identified. Assessment: 09:39 General: Appears in no apparent distress. comfortable, Behavior is calm, cooperative, kc6 appropriate for age. Pain: Complains of pain in left lower quadrant Pain does not radiate. Pain currently is 7 out of 10 on a pain scale. Quality of pain is described as aching, dull, Is continuous, Alleviated by nothing. Also complains of constipation, nausea. Neuro: Miramontes Agitation-Sedation Scale (RASS): 0 - Alert and Calm Level of Consciousness is awake, alert, obeys commands, Oriented to person, place, time, situation, Appropriate for age. Cardiovascular: Heart tones S1 S2 present Capillary refill < 3 seconds. Respiratory: Airway is patent Trachea midline Respiratory effort is even, unlabored, Respiratory pattern is regular, symmetrical, Breath sounds are clear bilaterally. GI: Abdomen is flat, non-distended, Bowel sounds present X 4 quads. Abd is soft X 4 quads Abdomen is tender to palpation in left lower quadrant Reports lower abdominal pain, constipation, rectal bleeding, bloody stool, hemorrhoids, nausea, vomiting, Patient currently denies diarrhea. : No signs and/or symptoms were reported regarding the genitourinary system. EENT: No signs and/or symptoms were reported regarding the EENT system. Derm: No signs and/or symptoms reported regarding the dermatologic system. Skin is intact, Skin is pink, warm \T\ dry. Musculoskeletal: No signs and/or symptoms reported regarding the musculoskeletal system. Circulation, motion, and sensation intact. Capillary refill < 3 seconds, Range of motion: intact in all extremities. 10:37 Reassessment: Patient appears in no apparent distress at this time. No changes from kc6 previously documented assessment. Patient and/or family updated on plan of care and expected duration. Pain level reassessed. Patient is alert, oriented x 3, equal unlabored respirations, skin warm/dry/pink. 11:34 Reassessment: Patient appears in no apparent distress at this time. No changes from kc6 previously documented assessment. Patient and/or family updated on plan of care and expected duration. Pain level reassessed. Patient is alert, oriented x 3, equal unlabored respirations, skin warm/dry/pink. Vital Signs: 09:16 BP 177 / 64; Pulse 69; Resp 17; Pulse Ox 100% on R/A; ss 09:42 BP 169 / 58; Pulse 70; Resp 18 S; Temp 98.1(TE); Pulse Ox 95% on R/A; Weight 80.29 kg kc6 (R); Pain 8/10; 10:40 BP 168 / 62; Pulse 68; Resp 18 S; Pulse Ox 97% on R/A; kc6 11:34 BP 150 / 70; Pulse 66; Resp 18 S; Pulse Ox 94% on R/A; kc6 ED Course: 09:01 Patient arrived in ED. mr 09:03 Good Barnes MD is Attending Physician. mary 09:05 Nahomy Rahman, RN is Primary Nurse. kc6 09:17 Triage completed. ss 09:17 Arm band placed on right wrist. ss 09:42 Patient has correct armband on for positive identification. Placed in gown. Bed in low kc6 position. Call light in reach. Side rails up X2. 10:45 Inserted saline lock: 22 gauge in left wrist, using aseptic technique. ,using aseptic kc6 technique. placed by Michelle from CT. 10:53 CT Abd/Pelvis - IV Contrast Only In Process Unspecified. EDMS 11:44 No provider procedures requiring assistance completed. IV discontinued, intact, kc6 bleeding controlled, No redness/swelling at site. Pressure dressing applied. Administered Medications: No medications were administered Medication: 11:45 VIS not applicable for this client. kc6 Outcome: 11:35 Discharge ordered by . jr 11:44 Discharged to home ambulatory. kc6 11:44 Condition: stable 11:44 Discharge instructions given to patient, family, Instructed on discharge instructions, follow up and referral plans. medication usage, Demonstrated understanding of instructions, follow-up care, medications, Prescriptions given X 3. 11:45 Patient left the ED. kc6 Signatures: Dispatcher [facility] Flora Hernández Shelby, RN Good Gilman MD MD jrNahomy Padilla, GELACIO BRIZUELA kc6
--- NOTE | 2022-05-26 11:36 | EDPHYS ---
Physician Documentation [facility] Name: Gregoria Vela Age: 72 yrs Sex: Female : 1950 Arrival Date: 05/26/2022 Time: 09:01 Bed 6 Private MD: ED Physician Good Barnes HPI: 05/26 09:15 This 72 yrs old Female presents to ER via Unassigned with complaints of Constipation. jr11 09:15 The patient presents with abdominal pain in the lower abdomen, abdominal distention in jr11 the lower abdomen. Onset: The symptoms/episode began/occurred last night. 09:17 Associated signs and symptoms: Pertinent negatives: blood in stools, diarrhea, fever. jr11 The symptoms are described as achy, dull. Modifying factors: The symptoms are alleviated by nothing, the symptoms are aggravated by movement. Severity of pain: At its worst the pain was severe in the emergency department the pain is unchanged. no full BM in 1 week . Historical: - Allergies: 09:17 ACETAMINOPHEN; ss 09:17 Hydrocodone-Acetaminophen; ss - PMHx: 09:17 cardiac stent; Hyperlipidemia; Hypertension; CAD; LYMPHOMA; plate in head; skin cancer; ss - PSHx: 09:17 plate in head; ss - Immunization history:: Adult Immunizations unknown. - Social history:: Smoking status: Patient denies any tobacco usage or history of. ROS: 09:17 All other systems are negative. jr11 Exam: 09:17 Constitutional: This is a well developed, well nourished patient who is awake, alert, jr11 and in no acute distress. Head/Face: Normocephalic, atraumatic. Eyes: Extra-ocular motions intact. Lids and lashes normal. Conjunctiva and sclera are non-icteric and not injected. Cornea within normal limits. Periorbital areas with no swelling, redness, or edema. ENT: Nares patent. No nasal discharge, no septal abnormalities noted. Oropharynx with no redness, swelling, or masses, exudates, or evidence of obstruction, uvula midline. Mucous membranes moist. Neck: Trachea midline, no thyromegaly or masses palpated, and no cervical lymphadenopathy. Supple, full range of motion without nuchal rigidity, or vertebral point tenderness. No Meningismus. Chest/axilla: Normal chest wall appearance and motion. Nontender with no deformity. No lesions are appreciated. Cardiovascular: Regular rate and rhythm with a normal S1 and S2. No gallops, murmurs, or rubs. Normal PMI, no JVD. No pulse deficits. Respiratory: Lungs have equal breath sounds bilaterally, clear to auscultation and percussion. No rales, rhonchi or wheezes noted. No increased work of breathing, no retractions or nasal flaring. Abdomen/GI: lower abd pain Skin: Warm, dry with normal turgor. Normal color with no rashes, no lesions, and no evidence of cellulitis. MS/ Extremity: Pulses equal, no cyanosis. Neurovascular intact. Full, normal range of motion. Neuro: Awake and alert, GCS 15, oriented to person, place, time, and situation. No gross motor or sensory deficits. Vital Signs: 09:16 BP 177 / 64; Pulse 69; Resp 17; Pulse Ox 100% on R/A; ss 09:42 BP 169 / 58; Pulse 70; Resp 18 S; Temp 98.1(TE); Pulse Ox 95% on R/A; Weight 80.29 kg kc6 (R); Pain 8/10; 10:40 BP 168 / 62; Pulse 68; Resp 18 S; Pulse Ox 97% on R/A; kc6 11:34 BP 150 / 70; Pulse 66; Resp 18 S; Pulse Ox 94% on R/A; kc6 MDM: 09:15 Patient medically screened. 11 09:17 Differential diagnosis: urinary tract infection, constipation, lower abd pain. Data [facility] reviewed: vital signs, nurses notes. 11:29 ED course: no evidence of impaction, but colitis on CT, will rx cipro and flagyl . 11 05/26 09:16 Order name: CBC with Diff; Complete Time: 10:[address] [facility] 05/26 09:16 Order name: CMP; Complete Time: 10:[address] [facility] 05/26 09:16 Order name: Lipase; Complete Time: 10:15 11 05/26 09:16 Order name: IV Saline Lock; Complete Time: 10:[address] [facility] 05/26 09:16 Order name: Labs collected and sent; Complete Time: 10:[address] [facility] 05/26 10:16 Order name: CT Abd/Pelvis - IV Contrast Only; Complete Time: 11:13 jr11 Administered Medications: No medications were administered Disposition Summary: 05/26/22 11:35 Discharge Ordered Location: Home jr Condition: Stable jr11 Diagnosis - Left sided colitis without complications jr11 - Lower abdominal pain, unspecified jr11 Followup: jr11 - With: Private Physician - When: 2 - 3 days - Reason: Re-evaluation by your physician Discharge Instructions: - Discharge Summary Sheet jr11 - Colitis jr11 Forms: - Medication Reconciliation Form jr11 - Thank You Letter jr11 - Antibiotic Education jr11 - Prescription Opioid Use jr11 Prescriptions: - Flagyl 500 mg Oral Tablet - take 1 tablet by ORAL route every 8 hours for 10 days; 30 tablet; Refills: 0, jr11 Product Selection Permitted - Cipro 500 mg Oral Tablet - take 1 tablet by ORAL route every 12 hours for 10 days; 20 tablet; Refills: 0, jr11 Product Selection Permitted - dicyclomine 20 mg Oral Tablet - take 2 tablets by ORAL route 4 times per day abd cramping; 20 tablet; Refills: jr11 0, Product Selection Permitted Signatures: Dispatcher [employer] Audrey Truong, RN RN ss Good Barnes MD MD jr11 Nahomy Rahman RN RN kc6
[2022-05-26 12:00] VITALS: TEMP 98.1
[2022-05-26] MEDS ORDERED: ACETAMINOPHEN 160 MG/5 ML UCUP ONE (12:06)
[2022-05-26 12:10] VITALS: BP 150/70; O2SAT 94
== END 2022-05-26 11:45 | disposition home or self-care (01) ==
LOC: ER 08:58
DX: K51.50 Left sided colitis without complications (principal); I10 Essential (primary) hypertension; Z95.818 Presence of other cardiac implants and grafts; Z88.5 Allergy status to narcotic agent; Z88.6 Allergy status to analgesic agent
CPT/HCPCS: 85025; 36415; 83690; 80053; 74177; 99283; Q9967

== ENCOUNTER 2022-11-05 12:08 | Emergency (ER) | payer OTHER ==
--- OUTSIDE RECORDS SUMMARY | 2022-11-05 12:19 | XMS REPORT | Clinical Summary ---
:1950 Author Organization [facility] MD [facility] Center Address [address] [place] [address] Care Team Providers Name Role Phone Elpidio [...] Mcdowell -Brain cancer Maternal Aunt 1 Marisel aKtie -Gastrointestinal (Esophagus, Liver, Maternal Aunt 2 Elana [...] Years Used Date Smoking Tobacco: Former Cigarettes 1 06/1968 - 06/05/1978 Smokeless Tobacco: Never Alcohol [...] Vaccination (#1) 1950 Results Not on fileafter 11/05/2021 Insurance Payer Benefit Plan Subscriber ID Effective Phone Address Typ e / Group Dates MEDICARE MEDICARE PART [id number] 2017-Prese [phone] NOVFORMERLY [facility] Medicare A nt 28 [employer]UT[employer] [address] [place] [address] [employer] PPO [id number] 2014-Prese [address] [place] [address] [place] [address] Care Teams 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
--- OUTSIDE RECORDS SUMMARY | 2022-11-05 12:23 | XMS REPORT | Continuity of Care Document ---
:1950 Author Organization [facility] [place] [facility] t Address [address] [place] [address] [place] [id number] Care Team Providers Name Role Phone Sim Diggs MD Primary Care Physician SIM DIGGS Attending Clinician Unavailable Davion Prather Rahil Attending Clinician Unavailable [id number] Attending Clinician Unavailable Devon Godwin Attending Clinician Unavailable Devon Godwin Attending Clinician Unavailable Cheyenne_Leno Attending Clinician Unavailable Devon Godwin Attending Clinician Unavailable JL LOPEZ Attending Clinician Unavailable Marisa Nolen RN Attending Clinician Unavailable SHANT YIP Attending Clinician Unavailable Doctor Unassigned, [employer] Attending Clinician Unavailable KOBY SHAH Attending Clinician Unavailable MONSERRAT MANTILLA Attending Clinician Unavailable LEANNA SOLIZ Attending Clinician Unavailable Jl Lopez MD Attending Clinician MD BR[place] Attending Clinician Unavailable MAGALY SANTOS Attending Clinician Unavailable ERASTO SPRINGER Attending Clinician Unavailable LAB47 Attending Clinician Unavailable MECCA ANDRADE Attending Clinician Unavailable LAB90 Attending Clinician Unavailable Monserrat Mantilla MD Attending Clinician [phone] Jason Willett RN Attending Clinician Unavailable Only, Ang Db Test Attending Clinician Unavailable Leanna Soliz MD Attending Clinician MARGARITO OLIVAREZ Attending Clinician Unavailable IHDE_G Attending Clinician Unavailable Simón Menon Attending Clinician Unavailable BRENDA BOBBY Attending Clinician Unavailable SADI QUEEN Attending Clinician Unavailable Tee Cifuentes Attending Clinician Yanick Shoemaker Attending Clinician CAMILLE WING Attending Clinician Unavailable KRYS BARTON Attending Clinician Unavailable NORRIS SANCHEZ Attending Clinician Unavailable CELIA HUSTON Attending Clinician Unavailable SHAKEEL ADAMS Attending Clinician Unavailable WILFRED DAO Attending Clinician Unavailable Davion Prather Rahil Admitting Clinician Unavailable [id number] Admitting Clinician Unavailable Devon Godwin Admitting Clinician Unavailable A_Byrd Admitting Clinician Unavailable IHDE_G Admitting Clinician Unavailable Tee Cifuentes Admitting Clinician Payers Payer Name Policy Type Policy Number Effective Date Expiration Date S blaise BCTX BCTP [id number] [facility] [id number] [employer] [place] - [id number] 2022 STAR PLUS MMP - 00:00:00 DUAL ELIGIBLE (MEDICARE - MEDICAID REPLACEMENT HMO) [facility] MED[facility] [id number] 2021 2022 [place] 00:00:00 00:00:00 (MEDICARE REPLACEMENT/ADVANTA GE - PPO) BCBS 2 [id number] 2019 00:00:00 [facility] MEDICARE [id number] 2021 [place]:00 ([place]IC[place] REPLACEMENT/[place] [id number] 2014 (PPO) 00:00:00 Problems Condition Condition Condition Status Onset Resolution Last Treating Co mments Source Name Details Category Date Date Treatment Clinician Date Subcutaneo Subcutaneo Problem Active M [place] us nodule us Nodule 3-23 da 00:00: Medical 00 Group 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 00:00: Medical 00 Group Hyperlipid Hyperlipid Disease Active 2020-06 Tim gunter emia 0-22 Seybold 00:00: 00 Chronic Chronic Disease Active 2020-06 [place] midline midline 0-22 Seybold low back low back 00:00: pain pain 00 CAD CAD Disease Active 2020-06 [place] (coronary (coronary 0-22 Seyb old artery artery 00:00: disease) disease) 00 Herpes Herpes Problem Active [place] simplex [...] Group Follicular Follicular Disease Active 2016-06 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: [place]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 00 MD [facility]obal [facility] [...] [facility] Dermatogra Dermatogra Disease Active U mely phic phic 1-20 ity of urtic[place] [facility] [place] Asteatotic Asteatotic Disease Active U mely eczema eczema 1-20 ity of 00:00: [place] 00 MD [facility] Bilateral Bilateral Disease Active Uni vers trochanter trochanter 1-13 it y of ic ic 00:00: [place] bursitis bursitis 00 MD [facility] C83.3 C83.3 Diagnosis Active 2015-062016-05-31 Mem oria Active 08-01 06:59:00 l 05/31/2016 00:00: Gurwinder BUENROSTRO [place] MESENTERIC Diagnosis Active 2015-062016-05-02 Memoria LYMPH MESENTERIC 06-25 07:59:00 l NODE-I88.0 LYMPH 00:00: Gurwinder onofre NODE-I88.0 00 Active 04/25/2016 [facility] Recurrent Recurrent Problem Active [place] herpes [...] Active [place] maxillary Maxillary da sinusitis Sinusitis [facility] Has a sore Has a Sore [...] [place] of of da mesentery Mesentery [facility] Gastrointe Gastrointe Problem Active M at[place] [...] rs active active ity of problems problems [facility] Backache Backache Problem Active 2016-06-03 Memoria (finding) (finding) 02:23:46 l Active [place] Problem 06/03/2016 [facility] Gastroesop Gastroeso Problem Active 2016-06-03 Memoria hageal phageal 02:23:46 l reflux reflux [place] disease disease (disorder) (disorder) Active Problem 06/03/2016 [facility] Neck pain Neck pain Problem Active 2016-06-03 Memoria (finding) (finding) 02:23:46 l Active [place] Problem 06/03/2016 [facility] Anxiety Anxiety Problem Active 2016-06-03 M emoria (finding) (finding) 02:23:46 l Active [place] Problem 06/03/2016 [facility] Allergies, Adverse Reactions, Alerts Allergy Allergy Status Severity Reaction(s) Onset Inactive Treating Comm ents Source Name Type Date Date Clinician Tylenol Propensi Active Rash 2020-06 [place] ty to 0-22 Seybold adverse 00:00: reaction 00 s Acetamin Drug Active Rash Univers ophen Allergy 1-11 ity of 00:00: [place] 00 MD [facility] Acetamin Propensi Active Rash [place] ophen ty to 06-15 ybold Injectio adverse 00:00: n reaction 00 s Tylenol Tylenol Active Erasmo Carballo NO KNOWN Drug Active Univers ALLERGIE Class ity of S [facility] Unable Drug Active [facility] Tylenol Drug Active [facility] Tylenol Allergy Active Rash [place] to da [facility] Medical e Group Family History Family Member Diagnosis Comments Start Date Stop Date Source Natural brother Diabetes [facility] [place] MD Ricci [facility] Cancer [place] Natural father Coronary heart Univer sity of disease (CHD) [place] MD [facility] Natural father Hypertension Universi ty [facility] MD Ricci [facility] Maternal aunt -Brain cancer [facility]i ty [facility] [place] MD Ricci [facility] Maternal aunt -Gastrointestinal Univ ersity of (Esophagus, Liver, [place] Bile Duct, Stomach, [facility] Pancreas, Colon, Rectum, Anus Maternal aunt -Leukemia [facility] MD Ricci [facility] Natural mother -Gynecology (Ovary, U niversity of Endometrial, Cervix, [facility]ag[facility] Natural mother -Thoracic or Lung [facility] [place] [facility] Natural mother Coronary heart Univer sity of disease (CHD) [place] MD G[facility] Natural mother Hypertension [facility] [place] [facility] Natural sister -Genitourinary Univer sity of (Bladder, Kidney, [facility] Prostate, Testicle) [facility] Natural sister Stroke [facility] Social History Social Habit Start Date Stop Date Quantity Comments Source Gender identity [facility] Sexual orientation [facility] Exposure to Not sure [facility] SARS-CoV-2 (event) [facility] Tobacco use and 2021-06-11 2021-06-11 Never used Universit y of exposure 00:00:00 00:00:00 [facility] Alcohol intake 2019-10-04 2019-10-04 Current University of 00:00:00 00:00:00 non-drinker of [facility] (finding) Cigarettes smoked 2016-06-15 2016-06-15 Univers ity of current (pack per 00:00:00 00:00:00 [place] Alexa Parada Anatoliy ) - Reported Cancer Ce nter Cigarette 2016-06-15 2016-06-15 University of pack-years 00:00:00 00:00:00 [facility] Social History 2016-04-25 2016-04-25 [facility] jordi 18:11:00 18:11:00 History of tobacco 1968-06-05 1978-06-05 Cigarette Smoker University of use 00:00:00 00:00:00 [facility] Sex Ass[birth year] Universit y of 00:00:00 00:00:00 [facility] Smoking Status Start Date Stop Date Source Former Smoker [facility] Tobacco smoking consumption [facility] unknown Never smoker [facility] [place] [facility] Medications Ordered Filled Start Stop Current Ordering [...] EVERY 4 HOURS NEEDED FOR HEADACHE acyclovir Yes acyclovir Uni vers 200 mg 2-23 200 mg ity of capsule 16:57: capsule [address] Branch prasugreL Yes prasugrel Uni vers 10 mg 2-23 10 mg ity of tablet 16:57: tablet [place] 43 Medical Branch benzonatate Yes benzonatat Univers 200 mg 2-23 e 200 mg ity of capsule 16:57: capsule [place] [id number] Take 1 Medical capsule 3 Branch times a day by oral route. valsartan Yes valsartan Uni vers 80 mg 2-23 80 mg ity of tablet 16:57: tablet [place] 43 TAKE 1 Medical TABLET BY Branch MOUTH EVERY DAY furosemide Yes furosemide U nivers 20 mg 2-23 20 mg ity of tablet 16:57: tablet [place] [address] TAKE 1 Medical TABLET BY Branch MOUTH EVERY DAY codeine-gua 0 Yes 5mL Take 5 mL U nivers ifenesin 2-23 by mouth ity of 10-100 mg/5 00:00: every 6 Junior as mL oral 00 (six) Medical solution hours as Branch needed for Cough. Indication s: cough fluticasone 0 Yes [id number] 1{spray Use 1 Univers propionate 2-23 } [place] in ity o f 50 00:00: each [place] mcg/actuati 00 nostril Medic al on nasal daily. Branch spray guaiFENesin Yes [id number] 400mg Take 1 Univers 400 mg 2-23 [...] every 8 Medical (eight) Branch hours. gabapentin 0 Yes 300mg Take 300 Un [place] 300 mg 1-07 mg by ity of capsule 13:32: mouth 3 [place] 21 (three) Medical times Branch daily. albuterol Yes [id number] 2{puff} Inhale 2 Univers 90 1-07 Puffs ity of mcg/actuati 00:00: every 6 Junior as on inhaler 00 (six) Medical hours as Branch needed for Wheezing or Shortness of Breath. albuterol 0 Yes [id number] 2{puff} Inhale 2 Univers 90 1-07 Puffs [...] daily Tablet 29 hydrOXYzine 2020-06 Yes 50mg [id number] Take 50 mg [place] Pamoate 50 2-21 [id number] by mouth 3 Seybold MG oral 10:09: [...] Yes 1[drp] 1 drop [place] (Lumigan) 2-21 nightly Seybold 0.01 % 10:09: [...] mg by ity of capsule 00:00: mouth. [address] Gabapentin 2020-06 Yes [id number] 300mg Take 1 [place] 300 MG oral 2-21 capsule Seybo ld Capsule 00:00: (300 mg 00 total) by mouth at bedtime Diclofenac 2020-06 Yes [id number] 75mg Take 1 [place] Sodium 75 2-21 tablet (75 Seyb old MG oral 00:00: mg total) Tablet 00 by mouth 2 Delayed times Response daily estradioL 2 2020-06 Yes 2mg Take 2 mg U nivers mg tablet 2-10 by mouth ity of 00:00: daily. [address] acyclovir 2020-06 Yes Take 2 Memori a (ZOVIRAX) 1-15 capsules l 200 mg 16:44: by mouth [place] capsule 40 as needed. acyclovir 2020-06 Yes Apply 1 Memor ia (ZOVIRAX) 1-15 applicatio l 5% cream 16:44: n [place] 40 topically to affected area(s) as needed. fenofibrate 2020-06 Yes Take 1 Kobi thania nanocrystal 1-15 tablet by l lized 16:44: mouth [place] (TRICOR) 40 daily. 145 mg tablet FLUoxetine [...] by l 350 mg 16:44: mouth as [place] tablet 40 needed. calcium 2020-06 Yes Chew 2 Memoria carbonate 1-15 tablets as l (TUMS) 1000 16:44: needed. Her walters mg (400 mg 40 elemental calcium) chewable tablet HYDROXYZINE 2020-06 Yes Take 100 Me moria PAMOATE 1-15 mg by l ORAL 16:44: mouth [place] 40 daily. Patient states that she takes [...] 1-12 mg by l Tablet 17:50: mouth [place] 29 daily hydroCHLORO 2020-06 Yes Take 50 mg Memoria thiazide 50 1-12 by mouth l MG oral 17:50: daily [place] Tablet 29 hydrOXYzine 2020-06 Yes Take 50 mg Memoria Pamoate 50 1-12 by mouth 3 l MG oral 17:50: times [place] Capsule 29 daily as needed for itching [...] E (RESTASIS 1-12 eye l OP) 17:50: [place] 29 Fluocin-Hyd 2020-06 Yes Apply 1 Mem oria roquinone-T 1-12 applicatio l retinoin 17:50: n [place] 0.01-4-0.05 29 topically % apply nightly externally Cream Aspirin 2020-06 Yes Take 81 mg Kobi thania (Aspirin 1-12 by mouth l 81) 81 MG 17:50: daily [place] oral 29 Chewable Tablet Atorvastati 2020-06 Yes [...] ia OR 1-12 mouth l 17:50: Patient [place] 29 states taking one daily ESTRADIOL 2020-06 Yes Take by Domonique y OR 1-12 mouth Seybold 08:25: Patient [...] daily Tablet 17 hydrOXYzine 2020-06 Yes 50mg Q.[id number] Take 50 mg [place] Pamoate 50 1-12 [id number] by mouth 3 Seybold MG oral 08:16: [...] Yes 1[drp] 1 drop Dave guallpa (Lumigan) 1-12 nightly Seybold 0.01 % 08:16: ophthalmic 17 Solution cycloSPORIN 2020-06 Yes Apply to Dave guallpa E (RESTASIS 1-12 eye Seybold OP) 08:16: 17 Fluocin-Hyd 2020-06 Yes Apply 1 Tanner sey roquinone-T 1-12 applicatio Se ybold retinoin 08:16: [...] daily Tablet 42 hydrOXYzine 2020-06 Yes 50mg [id number] Take 50 mg [place] Pamoate 50 0-22 [id number] by mouth 3 Seybold MG oral 09:45: [...] Yes Apply to Dave guallpa E (RESTASIS 0-22 eye Seybold OP) 09:45: 42 Fluocin-Hyd 2020-06 Yes Apply 1 Tanner y roquinone-T 0-22 applicatio Se ybkatia retinoin 09:45: n 0.01-4-0.05 42 topically % apply nightly externally Cream Gemfibrozil 2020-06 Yes Take 1 Kobi thania 600 MG oral 0-22 tablet l Tablet 00:00: (600 mg [place] 00 total) by mouth 2 times daily (before meals) Gemfibrozil 2020-06 Yes [id number] 600mg Take 1 [place] 600 MG oral 0-22 tablet Seybol d Tablet 00:00: (600 mg 00 total) by mouth 2 times daily (before meals) Gemfibrozil 2020-06 Yes [id number] 600mg Take 1 [place] 600 MG oral 0-22 tablet Seybol d Tablet 00:00: (600 mg 00 total) by mouth 2 times daily (before meals) Gemfibrozil 2020-06 Yes [id number] 600mg Take 1 [place] 600 MG oral 0-22 tablet Seybol d Tablet 00:00: (600 mg 00 total) by mouth 2 times daily (before meals) No known No Univers medications 9-20 ity of 19:32: [address] No known No Univers medications 9-20 ity of 19:32: [address] No known No Univers medications 9-20 ity of 19:32: [address] amLODIPine Yes 5mg Take 5 mg Un stuart (NORVASC) 5 5-01 by mouth ity of mg tablet 14:53: daily. [place] 57 MD [facility] gemfibrozil Yes gemfibrozi Univers (LOPID) 600 5-01 l 600 mg ity of mg tablet 14:53: tablet [place] 57 TAKE 1 MD TABLET BY Anderso MOUTH n TWICE Cancer DAILY [place] icosapent 0 Yes Vascepa 1 Uni vers ethyL 5-01 gram ity of (Vascepa) 1 14:53: capsule Junior as gram [facility] 57 TAKE 2 MD CAPSULES Anderso BY MOUTH n TWICE Cancer DAILY [place] amLODIPine Yes 5mg Take 5 mg Un [place] (NORVASC) 5 5-01 by mouth ity of mg tablet 14:53: daily. [place] 57 MD Crist[facility] gemfibrozil Yes gemfibrozi Univers (LOPID) 600 5-01 l 600 mg ity of mg tablet 14:53: tablet [place] 57 TAKE 1 MD TABLET BY Anderso MOUTH n TWICE Cancer DAILY [place] icosapent 2019-0 Yes Vascepa 1 Uni vers ethyL 5-01 gram ity of (Vascepa) 1 14:53: capsule Junior as gram cap 57 TAKE 2 MD CAPSULES Anderso BY MOUTH n TWICE Cancer DAILY [place] acyclovir 2019-0 Yes 2{capsu Take 2 Uni vers (ZOVIRAX) 5-01 le} capsules ity of 200 mg 14:48: by mouth [place] capsule 02 as needed. MD [facility] acyclovir Yes 1{appli Apply 1 Un [place] (ZOVIRAX) 5-01 cation} applicatio i ty of 5% cream 14:48: n [place] 02 topically MD to Anderso affected n area(s) as Cancer needed. [place] fenofibrate Yes 1{tbl} Take 1 Un [place] nanocrystal 5-01 tablet by ity of lized 14:48: mouth [place] (TRICOR) 02 daily. 145 mg Anderso tablet [facility] FLUoxetine 2019- Yes 1{capsu Take 1 Un [place]uart (PROzac) 20 5-01 le} capsule by it y of mg capsule 14:48: mouth [place] 02 daily. MD [facility] isosorbide 2019- Yes 1{tbl} Take 1 Uni vers mononitrate 5-01 tablet by ity of (IMDUR) 30 14:48: mouth [place] mg 24 hr 02 daily. tablet Cristobal [facility] lisinopril- 2019-0 Yes 1{tbl} Take 1 Un [place] hydrochloro 5-01 tablet by ity of thiazide 14:48: mouth [place] (PRINZIDE,Z 02 twice ESTORETIC) daily. Anderso 20-12.5 mg n per tablet Cancer [place] estrogens, 2019-0 Yes 1{tbl} Take 1 Uni vers conjugated, 5-01 tablet by ity of (PREMARIN) 14:48: mouth [place] 1.25 mg 02 daily. tablet [facility] n [facility] traMADol 2019-0 Yes 1{tbl} Take 1 Unive rs (ULTRAM) 50 5-01 tablet by ity of mg tablet 14:48: mouth [place] 02 every 6 (six) Cristobal hours as n needed. Cancer Center carisoprodo 2019-0 Yes 1{tbl} Take 1 Un stuart l (SOMA) 5-01 tablet by ity of 350 mg 14:48: mouth as [place] tablet 02 needed. MD [facility] calcium 2019- Yes 2{tbl} Chew 2 Univer s carbonate 5-01 tablets as ity of (TUMS) 1000 14:48: needed. Junior as mg (400 mg 02 elemental Cristobal calcium) n chewable Cancer tablet Center HYDROXYZINE Yes 100mg Take 100 U nivers PAMOATE 5-01 mg by ity of ORAL 14:48: mouth [place] 02 daily. Patient Cristobal states n that she Cancer takes this Center medication in the middle of the day. aspirin 81 2019-0 Yes 81mg Take 81 mg U nivers mg EC 5-01 by mouth ity of tablet 14:48: daily. [place] 02 MD Cristobal on[facility] [place] acyclovir Yes 2{capsu Take 2 Uni vers (ZOVIRAX) 5-01 le} capsules ity of 200 mg 14:48: by mouth [place] capsule 02 as needed. MD Cristobal on[facility] [place] acyclovir Yes 1{appli Apply 1 Un [place] (ZOVIRAX) 5-01 cation} applicatio i ty of 5% cream 14:48: n [place] 02 topically MD to Cristobal affected n area(s) as Cancer needed. [place] fenofibrate 0 Yes 1{tbl} Take 1 Un [place] nanocrystal 5-01 tablet by ity of lized 14:48: mouth [place] (TRICOR) 02 daily. 145 mg Cristobal [facility] FLUoxetine 2019-0 Yes 1{capsu Take 1 Un [place] (PROzac) 20 5-01 le} capsule by it y of mg capsule 14:48: mouth [place] 02 daily. MD Cristobal on[facility] [place] isosorbide 2019-0 Yes 1{tbl} Take 1 Uni vers mononitrate 5-01 tablet by ity of (IMDUR) 30 14:48: mouth [place] mg 24 hr 02 daily. tablet [facility] lisinopril- 2020-0 Yes 1{tbl} Take 1 Un [place] hydrochloro 5-01 tablet by ity of thiazide 14:48: mouth [place] (PRINZIDE,Z 02 twice ESTMENA) daily. Anderso 20-12.5 mg n per tablet Cancer Center estrogens, 2020-0 Yes 1{tbl} Take 1 Uni vers conjugated, 5-01 tablet by ity of (PREMARIN) 14:48: mouth [place] 1.25 mg 02 daily. tablet [facility] traMADol 2019-0 Yes 1{tbl} Take 1 Unive rs (ULTRAM) 50 5-01 tablet by ity of mg tablet 14:48: mouth [place] 02 every 6 (six) Cristobal hours as n needed. Cancer [place] carisoprodo 2019-0 Yes 1{tbl} Take 1 Un stuart l (SOMA) 5-01 tablet by ity of 350 mg 14:48: mouth as [place] tablet 02 needed. MD [facility] calcium 2019-0 Yes 2{tbl} Chew 2 Univer s carbonate 5-01 tablets as ity of (TUMS) 1000 14:48: needed. Junior as mg (400 mg 02 elemental Cristobal calcium) n chewable Cancer tablet [place] HYDROXYZINE 2019-0 Yes 100mg Take 100 U nivers PAMOATE 5-01 mg by ity of ORAL 14:48: mouth [place] 02 daily. Patient Cristobal states n that she Cancer takes this Center medication in the middle of the day. aspirin 81 2020-0 Yes 81mg Take 81 mg U nivers mg EC 5-01 by mouth ity of tablet 14:48: daily. MD Crist[facility] on[facility] clopidogrel 2020-0 Yes 75mg Take 75 mg Univers (PLAVIX) 75 4-22 by mouth ity of mg tablet 00:00: daily. MD Cristobal on[facility] clopidogrel 2020-0 Yes Take 75 mg Memoria (PLAVIX) 75 4-22 by mouth l mg tablet 00:00: daily. Gurwinder n clopidogrel 2020-0 Yes 75mg Take 75 mg Univers (PLAVIX) 75 4-22 by mouth ity of mg tablet 00:00: daily. MD Crist[facility] LUMIGAN Yes 1[drp] Administer Un stuart 0.01 % 4-18 1 drop to ity of ophthalmic 00:00: both eyes. [place] drops 00 Patient states francia Jain does two n drops Cancer [place] LUMIGAN Yes Administer Kobi thania 0.01 % 4-18 1 drop to l ophthalmic 00:00: both eyes. H ermann drops 00 Patient states she does two drops LUMIGAN Yes 1[drp] Administer Un stuart 0.01 % 4-18 1 drop to ity of ophthalmic 00:00: both eyes. [place] drops 00 Patient states francia Jain does two n drops [facility] atorvastati Yes 40mg Take 40 mg Univers n (LIPITOR) 3-03 by mouth ity of 40 mg 00:00: at [place] tablet 00 bedtime. MD [facility] atorvastati Yes Take 40 mg Memoria n (LIPITOR) 3-03 by mouth l 40 mg 00:00: at [place] tablet 00 bedtime. atorvastati Yes 40mg Take 40 mg Univers n (LIPITOR) 3-03 by mouth ity of 40 mg 00:00: at [place] tablet 00 bedtime. MD [facility] fluocinolon Yes Patient Uni vers e 0.01 % 8-26 uses this ity of oil 00:00: 2-4 times [place] 00 a day MD [facility] fluocinolon Yes Patient Mem oria e 0.01 % 8-26 uses this l oil 00:00: 2-4 times [place] 00 a day fluocinolon Yes Patient Uni vers e 0.01 % 8-26 uses this ity of oil 00:00: 2-4 times [place] 00 a day MD [facility] hydrOXYzine Yes Dermatograp TAKE 1 OR Univers HCl 7-30 hic 2 TABLETS ity of (ATARAX) 25 00:00: urticaria BY MOUTH [place] mg tablet 00 EVERY MD NIGHT AT [facility] BEDTIME n NEEDED FOR Cancer ITCHING. [place] hydrOXYzine Yes TAKE 1 OR M emoria HCl 7-30 2 TABLETS l (ATARAX) 25 00:00: BY MOUTH He r[place] mg tablet 00 EVERY NIGHT AT BEDTIME NEEDED FOR ITCHING. hydrOXYzine 2017-0 Yes Dermatograp TAKE 1 OR Univers HCl 7-30 hic 2 TABLETS ity of (ATARAX) 25 00:00: urticaria BY MOUTH [place] mg tablet 00 EVERY MD NIGHT AT Anderso BEDTIME n NEEDED FOR Cancer ITCHING. [place] Roxicodone 2015-06 No 5 mg, Memori a 07-02 Route: PO, l 20:33: ONCE, [place] Dosing Weight 67.864, kg, Start date: 05/02/16 14:33:00 TALENT ACQUISITION OPERATIONS MANAGER, Stop date: 05/02/16 14:33:00 TALENT ACQUISITION OPERATIONS MANAGER Roxicodone 2015-06 No 5 mg, Memori a 07-02 Route: PO, l 20:33: ONCE, [place] Dosing Weight 67.864, kg, Start date: 05/02/16 14:33:00 TALENT ACQUISITION OPERATIONS MANAGER, Stop date: 05/02/16 14:33:00 TALENT ACQUISITION OPERATIONS MANAGER Roxicodone 2015-06 No 5 mg, Memori a 07-02 Route: PO, l 20:33: ONCE, [place] 00 Dosing Weight 67.864, kg, Start date: 05/02/16 14:33:00 TALENT ACQUISITION OPERATIONS MANAGER, Stop date: 05/02/16 14:33:00 TALENT ACQUISITION OPERATIONS MANAGER glycopyrrol 2015-06 No Route: IV, Memoria ate (ANES) 07-02 Drug form: l 18:36: INJ, ONCE, Stop date: 05/02/16 12:36:00 TALENT ACQUISITION OPERATIONS MANAGER neostigmine 2015-06 No Route: IV, Memoria (ANES) 07-02 Drug form: l 18:36: INJ, ONCE, Stop date: 05/02/16 12:36:00 TALENT ACQUISITION OPERATIONS MANAGER glycopyrrol 2015-06 No Route: IV, Memoria ate (ANES) 07-02 Drug form: l 18:36: INJ, ONCE, Stop date: 05/02/16 12:36:00 TALENT ACQUISITION OPERATIONS MANAGER neostigmine 2015-06 No Route: IV, Memoria (ANES) 07-02 Drug form: l 18:36: INJ, ONCE, Stop date: 05/02/16 12:36:00 TALENT ACQUISITION OPERATIONS MANAGER glycopyrrol 2015-06 No Route: IV, Memoria ate (ANES) 07-02 Drug form: l 18:36: INJ, ONCE, Stop date: 05/02/16 12:36:00 TALENT ACQUISITION OPERATIONS MANAGER neostigmine 2015-06 No Route: IV, Memoria (ANES) 07-02 Drug form: l 18:36: INJ, ONCE, Stop date: 05/02/16 12:36:00 TALENT ACQUISITION OPERATIONS MANAGER Meperidine 2015-06 No Notes: Memor ia 07-02 [...] Pain Score 1-3, Start date: 05/02/16 12:29:00 TALENT ACQUISITION OPERATIONS MANAGER, Duration: 1 doses or times, Stop date: [...] thania ne 07-02 Concentrat l 18:29: ion: [place] 00 4mg/ml Ondansetron 2015-06 No Notes: Kobi thania 07-02 (Same as: l 18:29: Zofran) [place] 00 MEDICATION WASTE Product Size: 4 mg Product [...] Pain Score 1-3, Start date: 05/02/16 12:29:00 TALENT ACQUISITION OPERATIONS MANAGER, Duration: 1 doses or times, Stop date: [...] days Memor ia 07-02 l 18:29: MEDICATION [place] 00 WASTE Product Size: 30 mg Product Wasted: ___ mg Oxycodone 2015-06 No Notes: Memori a 07-02 (Same as: l 18:29: 'Roxicodon e) Acetaminoph 2015-06 No 1,000 mg, M emoria en 07-02 Route: l 18:29: IVPB, Drug form: INJ, Q6H, Dosing Weight 67.727, kg, PRN Pain Score 1-3, Start date: 05/02/16 12:29:00 TALENT ACQUISITION OPERATIONS MANAGER, Duration: 1 doses or times, Stop date: [...] 17:54: INJ, ONCE, Stop date: 05/02/16 11:54:00 TALENT ACQUISITION OPERATIONS MANAGER ondansetron 2015-06 No Route: IV, Memoria (ANES) 07-02 Drug form: l 17:54: INJ, ONCE, Stop date: 05/02/16 11:54:00 TALENT ACQUISITION OPERATIONS MANAGER ondansetron 2015-06 No Route: IV, Memoria (ANES) 07-02 Drug form: l 17:54: INJ, ONCE, Stop date: 05/02/16 11:54:00 TALENT ACQUISITION OPERATIONS MANAGER ePHEDrine 2015-06 No Route: IV, Me moria (ANES) 07-02 Drug form: l 17:14: INJ, ONCE, Stop date: 05/02/16 11:14:00 TALENT ACQUISITION OPERATIONS MANAGER ePHEDrine 2015-06 No Route: IV, Me moria (ANES) 07-02 Drug form: l 17:14: INJ, ONCE, Stop date: 05/02/16 11:14:00 TALENT ACQUISITION OPERATIONS MANAGER ePHEDrine 2015-06 No Route: IV, Me moria (ANES) 07-02 Drug form: l 17:14: INJ, ONCE, [place] 00 Stop date: 05/02/16 11:14:00 TALENT ACQUISITION OPERATIONS MANAGER metoclopram 2015-06 No Route: IV, Memoria simeon (ANES) 07-02 Drug form: l 17:04: INJ, ONCE, [place] 00 Stop date: 05/02/16 11:04:00 TALENT ACQUISITION OPERATIONS MANAGER famotidine 2015-06 No Route: IV, M emoria (ANES) 07-02 Drug form: l 17:04: INJ, ONCE, [place] 00 Stop date: 05/02/16 11:04:00 TALENT ACQUISITION OPERATIONS MANAGER rocuronium 2015-06 No Route: IV, M emoria (ANES) 07-02 Drug form: l 17:04: INJ, ONCE, [place] 00 Stop date: 05/02/16 11:04:00 TALENT ACQUISITION OPERATIONS MANAGER acetaminoph 2015-06 No Route: IV, Memoria en (ANES) 07-02 Drug form: l 17:04: INJ, ONCE, Stop date: 05/02/16 11:04:00 TALENT ACQUISITION OPERATIONS MANAGER metoclopram 2015-06 No Route: IV, Memoria simeon (ANES) 07-02 Drug form: l 17:04: INJ, ONCE, Stop date: 05/02/16 11:04:00 TALENT ACQUISITION OPERATIONS MANAGER famotidine 2015-06 No Route: IV, M emoria (ANES) 07-02 Drug form: l 17:04: INJ, ONCE, Stop date: 05/02/16 11:04:00 TALENT ACQUISITION OPERATIONS MANAGER rocuronium 2015-06 No Route: IV, M emoria (ANES) 07-02 Drug form: l 17:04: INJ, ONCE, [place] 00 Stop date: 05/02/16 11:04:00 TALENT ACQUISITION OPERATIONS MANAGER acetaminoph 2015-06 No Route: IV, Memoria en (ANES) 07-02 Drug form: l 17:04: INJ, ONCE, [place] 00 Stop date: 05/02/16 11:04:00 TALENT ACQUISITION OPERATIONS MANAGER metoclopram 2015-06 No Route: IV, Memoria simeon (ANES) 07-02 Drug form: l 17:04: INJ, ONCE, [place] 00 Stop date: 05/02/16 11:04:00 TALENT ACQUISITION OPERATIONS MANAGER famotidine 2015-06 No Route: IV, M emoria (ANES) 07-02 Drug form: l 17:04: INJ, ONCE, [place] 00 Stop date: 05/02/16 11:04:00 TALENT ACQUISITION OPERATIONS MANAGER rocuronium 2015-06 No Route: IV, M emoria (ANES) 07-02 Drug form: l 17:04: INJ, ONCE, [place] 00 Stop date: 05/02/16 11:04:00 TALENT ACQUISITION OPERATIONS MANAGER acetaminoph 2015-06 No Route: IV, Memoria en (ANES) 07-02 Drug form: l 17:04: INJ, ONCE, Stop date: 05/02/16 11:04:00 TALENT ACQUISITION OPERATIONS MANAGER propofol 2015-06 No Route: IV, Mem oria (ANES) 07-02 Drug form: l 16:59: INJ, ONCE, Stop date: 05/02/16 10:59:00 TALENT ACQUISITION OPERATIONS MANAGER succinylcho 2015-06 No Route: IV, Memoria line (ANES) 07-02 Drug form: l 16:59: INJ, ONCE, Stop date: 05/02/16 10:59:00 TALENT ACQUISITION OPERATIONS MANAGER midazolam 2015-06 No Route: IV, Me moria (ANES) 07-02 Drug form: l 16:59: SOLN, [place] 00 ONCE, Stop date: 05/02/16 10:59:00 TALENT ACQUISITION OPERATIONS MANAGER fentaNYL 2015-06 No Route: IV, Mem oria (ANES) 07-02 Drug form: l 16:59: INJ, ONCE, [place] 00 Stop date: 05/02/16 10:59:00 TALENT ACQUISITION OPERATIONS MANAGER lidocaine 2015-06 No Route: IV, Me moria (ANES) 07-02 Drug form: l 16:59: INJ, ONCE, [place] 00 Stop date: 05/02/16 10:59:00 TALENT ACQUISITION OPERATIONS MANAGER propofol 2015-06 No Route: IV, Mem oria (ANES) 07-02 Drug form: l 16:59: INJ, ONCE, [place] 00 Stop date: 05/02/16 10:59:00 TALENT ACQUISITION OPERATIONS MANAGER succinylcho 2015-06 No Route: IV, Memoria line (ANES) 07-02 Drug form: l 16:59: INJ, ONCE, [place] 00 Stop date: 05/02/16 10:59:00 TALENT ACQUISITION OPERATIONS MANAGER midazolam 2015-06 No Route: IV, Me moria (ANES) 07-02 Drug form: l 16:59: SOLN, [place] 00 ONCE, Stop date: 05/02/16 10:59:00 TALENT ACQUISITION OPERATIONS MANAGER fentaNYL 2015-06 No Route: IV, Mem oria (ANES) 07-02 Drug form: l 16:59: INJ, ONCE, [place] Stop date: 05/02/16 10:59:00 TALENT ACQUISITION OPERATIONS MANAGER lidocaine 2015-06 No Route: IV, Me moria (ANES) 07-02 Drug form: l 16:59: INJ, ONCE, [place] 00 Stop date: 05/02/16 10:59:00 TALENT ACQUISITION OPERATIONS MANAGER propofol 2015-06 No Route: IV, Mem oria (ANES) 07-02 Drug form: l 16:59: INJ, ONCE, [place] 00 Stop date: 05/02/16 10:59:00 TALENT ACQUISITION OPERATIONS MANAGER succinylcho 2015-06 No Route: IV, Memoria line (ANES) 07-02 Drug form: l 16:59: INJ, ONCE, [place] 00 Stop date: 05/02/16 10:59:00 TALENT ACQUISITION OPERATIONS MANAGER midazolam 2015-06 No Route: IV, Me moria (ANES) 07-02 Drug form: l 16:59: SOLN, [place] 00 ONCE, Stop date: 05/02/16 10:59:00 TALENT ACQUISITION OPERATIONS MANAGER fentaNYL 2015-06 No Route: IV, Mem oria (ANES) 07-02 Drug form: l 16:59: INJ, ONCE, [place] 00 Stop date: 05/02/16 10:59:00 TALENT ACQUISITION OPERATIONS MANAGER lidocaine 2015-06 No Route: IV, Me moria (ANES) 07-02 Drug form: l 16:59: INJ, ONCE, [place] 00 Stop date: 05/02/16 10:59:00 TALENT ACQUISITION OPERATIONS MANAGER cefOXitin 2015-06 No Route: IV, Me moria (ANES) 07-02 Drug form: l 16:54: INJ, ONCE, [place] Stop date: 05/02/16 10:54:00 TALENT ACQUISITION OPERATIONS MANAGER cefOXitin 2015-06 No Route: IV, Me moria (ANES) 07-02 Drug form: l 16:54: INJ, ONCE, [place] 00 Stop date: 05/02/16 10:54:00 TALENT ACQUISITION OPERATIONS MANAGER cefOXitin 2015-06 No Route: IV, Me moria (ANES) 07-02 Drug form: l 16:54: INJ, ONCE, [place] 00 Stop date: 05/02/16 10:54:00 TALENT ACQUISITION OPERATIONS MANAGER LR 1000 mL 2015-06 No Route: IV, M emoria INJ (ANES) 07-02 Total l 16:19: Volume: [place] 00 1,000, Start date: 05/02/16 10:19:00 TALENT ACQUISITION OPERATIONS MANAGER, Stop date: 05/02/16 11:19:00 TALENT ACQUISITION OPERATIONS MANAGER LR 1000 mL 2015-06 No Route: IV, M emoria INJ (ANES) 07-02 Total l 16:19: Volume: [place] 00 1,000, Start date: 05/02/16 10:19:00 TALENT ACQUISITION OPERATIONS MANAGER, Stop date: 05/02/16 11:19:00 TALENT ACQUISITION OPERATIONS MANAGER LR 1000 mL 2015-06 No Route: IV, M emoria INJ (ANES) 07-02 Total l 16:19: Volume: [place] 00 1,000, Start date: 05/02/16 10:19:00 TALENT ACQUISITION OPERATIONS MANAGER, Stop date: 05/02/16 11:19:00 TALENT ACQUISITION OPERATIONS MANAGER Neurontin 2015-06 No Notes: Memori a 07-02 (Same as: l 15:30: Neurontin) Neurontin 2015-06 No Notes: Memori a - (Same as: l 15:30: Neurontin) [place] Neurontin 2015-06 No Notes: Memori a - (Same as: l 15:30: Neurontin) Calcium 2015-06 No 1,000 mL, Memor ia Chloride 07-02 Rate: 25 l 0.0014 13:59: ml/hr, [place] MEQ/ML / 00 Infuse Potassium over: 40 Chloride hr, Route: 0.004 IV, Dosing MEQ/ML / Weight Sodium 67.727 kg, Chloride Total 0.103 Volume: MEQ/ML / 1,000, Sodium Start Lactate date: 0.028 05/02/16 MEQ/ML 7:59:00 Injectable TALENT ACQUISITION OPERATIONS MANAGER, Solution Duration: 30 day, Stop date: 06/01/16 7:58:00 TALENT ACQUISITION OPERATIONS MANAGER Calcium 2015-06 No 1,000 mL, Memor ia Chloride 07-02 Rate: 25 l 0.0014 13:59: ml/hr, [place] MEQ/ML / 00 Infuse Potassium over: 40 Chloride hr, Route: 0.004 IV, Dosing MEQ/ML / Weight Sodium 67.727 kg, Chloride Total 0.103 Volume: MEQ/ML / 1,000, Sodium Start Lactate date: 0.028 05/02/16 MEQ/ML 7:59:00 Injectable TALENT ACQUISITION OPERATIONS MANAGER, Solution Duration: 30 day, Stop date: 06/01/16 7:58:00 TALENT ACQUISITION OPERATIONS MANAGER Calcium 2015-06 No 1,000 mL, Memor ia Chloride 07-02 Rate: 25 l 0.0014 13:59: ml/hr, [place] MEQ/ML / 00 Infuse Potassium over: 40 Chloride hr, Route: 0.004 IV, Dosing MEQ/ML / Weight Sodium 67.727 kg, Chloride Total 0.103 Volume: MEQ/ML / 1,000, Sodium Start Lactate date: 0.028 05/02/16 MEQ/ML 7:59:00 Injectable TALENT ACQUISITION OPERATIONS MANAGER, Solution Duration: 30 day, Stop date: 06/01/16 7:58:00 TALENT ACQUISITION OPERATIONS MANAGER Lovenox 2015-06 No Notes: Memoria 07-02 (Same as: l 12:00: Lovenox) [place] 00 CeleBREX 2015-06 No Notes: Memoria - NSAID. l 12:00: Please [place] 00 check indication . Not for seizure. (Same As: CeleBREX) Mefoxin + 2015-06 No Notes: Memori a sodium 07-02 (Same As: l chloride 12:00: Mefoxin) Naa nn 0.9% INJ 00 100 mL MEDICATION WASTE Product Size: 2000 mg Product Wasted: ___ mg Neurontin 2015-06 No Notes: Memori a - (Same as: l 12:00: Neurontin) [place] Lovenox 2015-06 No Notes: Memoria 07-02 (Same as: l 12:00: Lovenox) [place] CeleBREX 2015-06 No Notes: Memoria -28 NSAID. l 12:00: Please [place] 00 check indication . Not for seizure. (Same As: CeleBREX) Mefoxin + 2015-06 No Notes: Memori a sodium - (Same As: l chloride 12:00: Mefoxin) Ana nn 0.9% INJ 00 100 mL MEDICATION WASTE Product Size: 2000 mg Product Wasted: ___ mg Neurontin 2015-06 No Notes: Memori a -28 (Same as: l 12:00: Neurontin) [place] 00 Lovenox 2015-06 No Notes: Memoria 07-02 (Same as: l 12:00: Lovenox) [place] CeleBREX 2015-06 No Notes: Memoria 07-02 NSAID. l 12:00: Please [place] 00 check indication . Not for seizure. (Same As: CeleBREX) Mefoxin + 2015-06 No Notes: Memori a sodium 07-02 (Same As: l chloride 12:00: Mefoxin) Ana nn 0.9% INJ 00 100 mL MEDICATION WASTE Product Size: 2000 mg Product Wasted: ___ mg Neurontin 2015-06 No Notes: Memori a 07-02 (Same as: l 12:00: Neurontin) [place] Fish Oil 2015-06 Yes = 2 tab, Memor ia 1200 mg 1-21 PO, PRN, 0 l oral 17:54: Refill(s) [place] capsule 00 Fish Oil 2015-06 Yes = 2 tab, Memor ia 1200 mg 1-21 PO, PRN, 0 l oral 17:54: Refill(s) [place] capsule 00 Fish Oil 2015-06 Yes = 2 tab, Memor ia 1200 mg 1-21 PO, PRN, 0 l oral 17:54: Refill(s) [place] capsule 00 biotin 1000 2015-06 Yes 2,000 Memor ia mcg oral 1-21 microgram l tablet 17:53: = 2 tab, [place] 00 PO, Daily, # 30 tab, 0 [...] tab, PO, l Tablet 17:52: BID, 0 [place] 00 Refill(s) lansoprazol 2015-06 Yes 30 mg [...] 06-25 QPM, 0 l Ophthalmic 17:51: Refill(s) rmann Solution 00 [Xalatan] Niacin SR 2015-06 Yes 500 mg = 1 Me moria 500 mg oral 1-21 cap, PO, l capsule, 17:51: Bedtime, 0 Her walters extended 00 Refill(s) release Fenofibrate 2015-06 Yes 145 mg = 1 Memoria 145 MG Oral 1-21 tab, PO, l Tablet 17:51: Daily, 0 [place] 00 Refill(s) latanoprost 2015-06 Yes 1 drp, Kobi thania 0.05 MG/ML 06-25 QPM, 0 l Ophthalmic 17:51: Refill(s) rmann Solution 00 [Xalatan] Niacin SR 2015-06 Yes 500 mg = 1 Me moria 500 mg oral 1-21 cap, PO, l capsule, 17:51: Bedtime, 0 Her walters extended 00 Refill(s) release Fenofibrate 2015-06 Yes 145 mg = 1 Memoria 145 MG Oral 1-21 tab, PO, l Tablet 17:51: Daily, 0 [place] 00 Refill(s) latanoprost 2015-06 Yes 1 drp, Kobi thania 0.05 MG/ML 06-25 QPM, 0 l Ophthalmic 17:51: Refill(s) He rmann Solution 00 [Xalatan] Niacin SR 2015-06 Yes 500 mg = 1 Me moria 500 mg oral 1-21 cap, PO, l capsule, 17:51: Bedtime, 0 Her wal[place] extended 00 Refill(s) release Fenofibrate 2015-06 Yes 145 mg = 1 Memoria 145 MG Oral 1-21 tab, PO, l Tablet 17:51: Daily, 0 [place] 00 Refill(s) acyclovir 2015-06 Yes 200 mg = 1 Me moria 200 mg oral 1-21 cap, PO, l capsule 17:50: TID, 0 [place] 00 Refill(s) acyclovir 2015-06 Yes 200 mg = 1 Me moria 200 mg oral 1-21 cap, PO, l capsule 17:50: TID, 0 [place] 00 Refill(s) acyclovir 2015-06 Yes 200 mg = 1 Me moria 200 mg oral 1-21 cap, PO, l capsule 17:50: TID, 0 [place] 00 Refill(s) carisoprodo 2015-06 Yes 350 mg = 1 Memoria l 350 mg 1-21 tab, PO, l oral tablet 17:49: QID, 0 Herm gricel 00 Refill(s) carisoprodo 2015-06 Yes 350 mg = 1 Memoria l 350 mg 1-21 tab, PO, l oral tablet 17:49: QID, 0 Herm gricel 00 Refill(s) carisoprodo 2015-06 Yes 350 mg = 1 Memoria l 350 mg 1-21 tab, PO, l oral tablet 17:49: QID, 0 Herm gricel 00 Refill(s) Estrogens, 2015-06 Yes 1.25 mg = Me moria Conjugated -21 1 tab, PO, l (PRISON) 1.25 17:48: Daily, 0 Her [place] MG Oral 00 Refill(s) Tablet [Premarin] Estrogens, 2015-06 Yes 1.25 mg = Me moria Conjugated 1-21 1 tab, PO, l (PRISON) 1.25 17:48: Daily, 0 Her [place] MG Oral 00 Refill(s) Tablet [Premarin] Estrogens, 2015-06 Yes 1.25 mg = Me moria Conjugated 1-21 1 tab, PO, l (PRISON) 1.25 17:48: Daily, 0 Her [place] MG Oral 00 Refill(s) Tablet [Premarin] FLUoxetine 2015-06 Yes 20 mg = 1 Me moria 20 mg oral 1-21 tab, PO, l tablet 17:47: Daily, 0 [place] 00 Refill(s) FLUoxetine 2015-06 Yes 20 mg = 1 Me moria 20 mg oral 1-21 tab, PO, l tablet 17:47: Daily, 0 [place] 00 Refill(s) FLUoxetine 2015-06 Yes 20 mg = 1 Me moria 20 mg oral 1-21 tab, PO, l tablet 17:47: Daily, 0 [place] 00 Refill(s) isosorbide 2015-06 Yes 30 mg [...] TID BEFORE ity of tab 00:00: MEALS MD [facility] diethylprop 2015-06 Yes TK 1 T PO M emoria ion 25 mg 0-20 TID BEFORE l tab 00:00: MEALS diethylprop 2015-06 Yes TK 1 T PO U nivers ion 25 mg 0-20 TID BEFORE ity of tab 00:00: MEALS MD [facility] albuterol albuterol No albuterol [place] sulfate HFA [...] TABLET BY DAY DAY MOUTH EVERY DAY aspirin 81 aspirin 81 No aspirin 81 [...] oral day by route. route. oral route. butalbital- butalbital- No butalbital [place] acetaminoph acetaminoph [...] oral day by route. route. oral route. latanoprost latanoprost No latanopros [place] 0.005 % [...] MG TO 0.5 MG WEEKLY. WEEKLY. WEEKLY. prasugrel prasugrel No prasugrel [place] 10 mg [...] MOUTH TWICE TABLET BY DAILY DAILY MOUTH NEEDED NEEDED TWICE DAILY NEEDED valsartan valsartan No valsartan [place] 80 mg 80 mg 80 mg da tablet TAKE tablet TAKE tablet Medical 1 TABLET BY 1 TABLET BY TAKE 1 Group MOUTH EVERY MOUTH EVERY TABLET BY DAY DAY MOUTH EVERY DAY Zithromax Zithromax No Zithromax [place] 250 mg 250 mg 250 mg da tablet TAKE tablet TAKE tablet Medical 2 TABLETS 2 TABLETS TAKE 2 Vick up (500 MG) BY (500 MG) BY TABLETS ORAL ROUTE ORAL ROUTE (500 MG) ONCE DAILY ONCE DAILY BY ORAL FOR 1 DAY FOR 1 DAY ROUTE ONCE THEN 1 THEN 1 DAILY FOR TABLET (250 TABLET (250 1 DAY THEN MG) BY ORAL MG) BY ORAL 1 TABLET ROUTE ONCE ROUTE ONCE (250 MG) DAILY FOR 4 DAILY FOR 4 BY ORAL DAYS DAYS ROUTE ONCE DAILY FOR 4 DAYS aspirin 325 aspirin 325 No 1 Q1D aspirin [place] mg tablet mg tablet 325 mg da Take 1 Take 1 tablet Medical tablet tablet Take 1 Group every day every day tablet by oral by oral every day route for route for by oral 30 days. 30 days. route for 30 days. atorvastati atorvastati No atorvastat [...] mg-325 tablet TAKE tablet TAKE mg-40 mg 1 TABLET BY 1 TABLET BY tablet MOUTH EVERY MOUTH EVERY TAKE 1 4 HOURS 4 HOURS TABLET BY NEEDED FOR NEEDED FOR MOUTH HEADACHE. HEADACHE. EVERY 4 HOURS NEEDED FOR HEADACHE. Contrave 8 Contrave 8 No 1 BID Contrave 8 [place] mg-90 mg mg-90 mg mg-90 mg da tablet,exte tablet,exte tablet,ext Medical nded nded ended Group release release release Take 1 Take 1 Take 1 tablet tablet tablet twice a day twice a day twice a by oral by oral day by route. route. oral route. dicyclomine dicyclomine No dicyclomin [place] 20 mg 20 mg e 20 mg da tablet TAKE tablet TAKE tablet Medical 2 TABLETS 2 TABLETS TAKE 2 Vick up BY MOUTH BY MOUTH TABLETS BY FOUR TIMES FOUR TIMES MOUTH FOUR DAILY FOR DAILY FOR TIMES ABDOMINAL ABDOMINAL DAILY FOR CRAMPING. CRAMPING. ABDOMINAL CRAMPING. estradiol 2 estradiol 2 No estradiol [place] [...] AREA TWICE AREA TWICE DAILY DAILY DAILY NEEDED NEEDED NEEDED furosemide furosemide No furosemide [place] 20 mg [...] DAILY MOUTH NEEDED NEEDED TWICE DAILY NEEDED latanoprost latanoprost No latanopros [place] 0.005 % [...] MG TO 0.5 MG WEEKLY. WEEKLY. WEEKLY. prasugrel prasugrel No prasugrel [place] 10 mg [...] INSTILL 1 INSTILL 1 e INSTILL DROP INTO DROP INTO 1 DROP AFFECTED AFFECTED INTO EYE(S) BY EYE(S) BY AFFECTED OPHTHALMIC OPHTHALMIC EYE(S) BY ROUTE EVERY ROUTE EVERY OPHTHALMIC 12 HOURS 12 HOURS ROUTE NEEDED NEEDED EVERY 12 HOURS NEEDED tramadol 50 tramadol 50 No tramadol [place] mg tablet mg tablet 50 mg da TAKE 1 TAKE 1 tablet Medical TABLET BY TABLET BY TAKE 1 Vick up MOUTH TWICE MOUTH TWICE TABLET BY DAILY DAILY MOUTH NEEDED NEEDED TWICE DAILY NEEDED valsartan valsartan No valsartan [place] 80 mg 80 mg 80 mg da tablet TAKE tablet TAKE tablet Medical 1 TABLET BY 1 TABLET BY TAKE 1 Group MOUTH EVERY MOUTH EVERY TABLET BY DAY DAY MOUTH EVERY DAY Immunizations Ordered Immunization Filled Immunization Date Status Commen ts Source Name Name SARS-COV-2 COVID-19 2021-06-04 Completed [facility] 00:00:00 [facility] SARS-COV-2 COVID-19 2021-06-04 Completed [facility] of [facility] BOOST[facility] 00:00:00 [facility] Influenza Virus 2021-03-26 Completed [facility] [...] Completed [facility] rs[facility] of [facility]ER[facility] VACCINE 00:00:00 [facility] SARS-COV-2 COVID-19 2020-08-05 Completed [facility] rs[facility] of [facility]ER[facility] VACCINE 00:00:00 [facility] Covid-19 Vaccine 2020-08-05 Completed [facility] eybold (Moderna), Mrna-lnp, 00:00:00 [facility], Pf, 100 Mcg/0.5ml,IM Covid-19 Vaccine 2020-08-05 Completed [facility] (Moderna), Mrna-lnp, 00:00:00 Mio Protein, Pf, 100 Mcg/0.5ml,IM Covid-19 Vaccine 2020-08-05 Completed [facility] (Moderna), Mrna-lnp, 00:00:00 Mio Protein, Pf, 100 Mcg/0.5ml,IM Covid-19 Vaccine 2020-08-05 Completed [facility] [place] (Moderna), Mrna-lnp, 00:00:00 Mio Protein, Pf, 100 Mcg/0.5ml,IM SARS-COV-2 COVID-19 2020-07-08 Completed [facility] of MODERNA VACCINE 00:00:00 [facility] SARS-COV-2 COVID-19 2020-07-08 Completed [facility] of MODERNA VACCINE 00:00:00 [facility] Covid-19 Vaccine 2020-07-08 Completed [facility] S eybold (Moderna), Mrna-lnp, 00:00:00 [facility]io Protein, Pf, 100 Mcg/0.5ml,IM Covid-19 Vaccine 2020-07-08 Completed [facility]ston (Moderna), Mrna-lnp, 00:00:00 Mio Protein, Pf, 100 Mcg/0.5ml,IM Covid-19 Vaccine 2020-07-08 Completed [facility]ston (Moderna), Mrna-lnp, 00:00:00 [facility]io Protein, Pf, 100 Mcg/0.5ml,IM Covid-19 Vaccine 2020-07-08 Completed [facility] (Moderna), Mrna-lnp, 00:00:00 [facility] Protein, Pf, 100 Mcg/0.5ml,IM Tdap Tdap 2015-10-02 Completed [facility]:44:[facility] Tdap Tdap 2015-10-02 Completed [facility] 15:44:00 [facility] Tdap Tdap 2015-10-02 Completed [facility] 15:44:00 [facility] Tdap Tdap 2015-10-02 Completed [facility] 15:44:00 [facility] influenza, high dose influenza, high dose 2014-04-16 Completed [facility] seasonal seasonal 00:00:00 [facility] influenza, high dose influenza, high dose 2014-04-16 Completed [facility] seasonal seasonal 00:00:00 [facility] influenza, high dose influenza, high dose 2014-04-16 Completed [facility] seasonal seasonal 00:00:00 [facility] influenza, high dose influenza, high dose 2014-04-16 Completed [facility] seasonal seasonal 00:00:00 [facility] pneumococcal pneumococcal 2013-04-02 Completed [facility] polysaccharide PPV23 polysaccharide PPV23 18:27:10 [facility] influenza, seasonal, influenza, seasonal, 2013-04-02 Completed [facility] injectable injectable 18:27:10 [facility] pneumococcal pneumococcal 2013-04-02 Completed [facility] polysaccharide PPV23 polysaccharide PPV23 18:27:10 [facility] influenza, seasonal, influenza, seasonal, 2013-04-02 Completed [facility] injectable injectable 18:27:10 [facility] pneumococcal pneumococcal 2013-04-02 Completed [facility] polysaccharide PPV23 polysaccharide PPV23 18:27:10 [facility] influenza, seasonal, influenza, seasonal, 2013-04-02 Completed [facility] injectable injectable 18:27:10 [facility] pneumococcal pneumococcal 2013-04-02 Completed [facility] polysaccharide PPV23 polysaccharide PPV23 18:27:10 [facility] influenza, seasonal, influenza, seasonal, 2013-04-02 Completed [facility] injectable injectable 18:27:10 [facility] Vital Signs Vital Name Observation Time Observation Value Comments Source Height/Length 2021-06-22 09:39:33 154 cm Measured Weight Dosing 2021-06-22 09:39:33 80 kg BP Diastolic 2022-08-25 00:00:00 66 mm[Hg] [facility] Height 2022-08-25 00:00:00 61 [in_i] [facility] BMI (Body Mass 2022-08-25 00:00:00 33.2 kg/m2 [facility] [employer] [facility] BP Systolic 2022-08-25 00:00:00 155 mm[Hg] [facility] Body Weight 2022-08-25 00:00:00 2814.4 [oz_av] [facility] BP Diastolic 2022-07-06 00:00:00 68 mm[Hg] [facility] Height 2022-07-06 00:00:00 61 [in_i] [facility] BMI (Body Mass 2022-07-06 00:00:00 32.9 kg/m2 [facility] [employer] [facility] BP Systolic 2022-07-06 00:00:00 127 mm[Hg] [facility] Body Weight 2022-07-06 00:00:00 2784 [oz_av] [facility] BP Diastolic 2022-05-03 00:00:00 75 mm[Hg] [facility] Height 2022-05-03 00:00:00 61 [in_i] [facility] BMI (Body Mass 2022-05-03 00:00:00 34.8 kg/m2 [facility] [employer] [facility] BP Systolic 2022-05-03 00:00:00 155 mm[Hg] [facility] Body Weight 2022-05-03 00:00:00 2945.6 [oz_av] [facility] BP Diastolic 2022-02-08 00:00:00 81 mm[Hg] [facility] Height 2022-02-08 00:00:00 61 [in_i] [facility] BMI (Body Mass 2022-02-08 00:00:00 35.9 kg/m2 [facility]) Group BP Systolic 2022-02-08 00:00:00 180 mm[Hg] [facility] Body Weight 2022-02-08 00:00:00 190.2 [lb_av] [facility] BP Diastolic 2022-01-04 00:00:00 69 mm[Hg] [facility] Height 2022-01-04 00:00:00 61 [in_i] [facility] BMI (Body Mass 2022-01-04 00:00:00 35.1 kg/m2 [facility]) Group BP Systolic 2022-01-04 00:00:00 138 mm[Hg] [facility] Body Weight 2022-01-04 00:00:00 2972.8 [oz_av[facility] BP Diastolic 2021-09-30 00:00:00 60 mm[Hg] [facility] Height 2021-09-30 00:00:00 61 [in_i] [facility] BMI (Body Mass 2021-09-30 00:00:00 33.1 kg/m2 [facility]) Group BP Systolic 2021-09-30 00:00:00 130 mm[Hg] [facility] Body Weight 2021-09-30 00:00:00 2803.2 [oz_av] [facility] Height 2021-07-27 00:00:00 61 [in_i] [facility] BMI (Body Mass 2021-07-27 00:00:00 31.9 kg/m2 [facility]) Group Body Weight 2021-07-27 00:00:00 2704 [oz_av] [facility] BP Diastolic 2021-07-13 00:00:00 65 mm[Hg] [facility] Height 2021-07-13 00:00:00 61 [in_i] [facility] BMI (Body Mass 2021-07-13 00:00:00 32 kg/m2 [facility] BP Systolic 2021-07-13 00:00:00 131 mm[Hg] [facility] Body Weight 2021-07-13 00:00:00 2712 [oz_av] [facility] BP Diastolic 2021-06-08 00:00:00 76 mm[Hg] [facility] Height 2021-06-08 00:00:00 61 [in_i] [facility] BMI (Body Mass 2021-06-08 00:00:00 34.6 kg/m2 [facility] BP Systolic 2021-06-08 00:00:00 153 mm[Hg] [facility] Body Weight 2021-06-08 00:00:00 2926.4 [oz_av] [facility] Body height 2021-05-25 16:13:00 154.9 [...] Heart rate 2021-03-26 14:34:00 79 /min Conchis alston Body temperature 2021-03-26 14:34:00 36.61 Leni Tabitha Mckeon Respiratory rate 2021-03-26 14:34:00 15 /min Tabitha Mckeon Body height 2021-03-26 14:34:00 154.9 cm Conchis alston Body weight 2021-03-26 14:34:00 81.194 kg Conchis alston BMI 2021-03-26 14:34:00 33.82 kg/m2 Conchis paizbothierry Height 2021-02-18 00:00:00 61 [in_i] [facility] BMI (Body Mass 2021-02-18 00:00:00 33.6 kg/m2 [facility] Body Weight 2021-02-18 00:00:00 2848 [oz_av] [facility] BP Diastolic 2020-11-10 00:00:00 67 mm[Hg] [facility] Height 2020-11-10 00:00:00 61 [in_i] [facility] BMI (Body Mass 2020-11-10 00:00:00 34.5 kg/m2 [facility] BP Systolic 2020-11-10 00:00:00 145 mm[Hg] [facility] Body Weight 2020-11-10 00:00:00 2921.6 [oz_av] [facility] Height 2020-08-19 00:00:00 61 [in_i] [facility] BMI (Body Mass 2020-08-19 00:00:00 34.8 kg/m2 [facility] Body Weight 2020-08-19 00:00:00 2944 [oz_av] [facility] Height 2020-02-20 00:00:00 61 [in_i] [facility] BMI (Body Mass 2020-02-20 00:00:00 34.8 kg/m2 [facility] Body Weight 2020-02-20 00:00:00 2944 [oz_av] [facility] Height 2019-12-11 00:00:00 61 [in_i] [facility] BMI (Body Mass 2019-12-11 00:00:00 34.8 kg/m2 [facility] Body Weight 2019-12-11 00:00:00 2944 [oz_av] [facility] Height/Length 2019-08-23 07:43:23 Measured Weight Dosing 2019-08-23 07:43:23 BP Diastolic 2019-07-18 00:00:00 72 mm[Hg] [facility] Height 2019-07-18 00:00:00 61 [in_i] [facility] BMI (Body Mass 2019-07-18 00:00:00 34.8 kg/m2 [facility] BP Systolic 2019-07-18 00:00:00 138 mm[Hg] [facility] Body Weight 2019-07-18 00:00:00 184 [lb_av] [facility] BP Diastolic 2019-06-11 00:00:00 72 mm[Hg] [facility] Height 2019-06-11 00:00:00 61 [in_i] [facility] BMI (Body Mass 2019-06-11 00:00:00 34.4 kg/m2 [facility] BP Systolic 2019-06-11 00:00:00 138 mm[Hg] [facility] Body Weight 2019-06-11 00:00:00 182 [lb_av] [facility] BP Diastolic 2019-05-22 00:00:00 70 mm[Hg] [facility] Height 2019-05-22 00:00:00 61 [in_i] [facility] BMI (Body Mass 2019-05-22 00:00:00 34.4 kg/m2 [facility] BP Systolic 2019-05-22 00:00:00 141 mm[Hg] [facility] Body Weight 2019-05-22 00:00:00 2912 [oz_av] [facility] BP Diastolic 2019-05-07 00:00:00 71 mm[Hg] [facility] Height 2019-05-07 00:00:00 61 [in_i] [facility] BMI (Body Mass 2019-05-07 00:00:00 34.4 kg/m2 [facility] Index) Group BP Systolic 2019-05-07 00:00:00 141 mm[Hg] [facility] Body Weight 2019-05-07 00:00:00 2912 [oz_av] [facility] BP Diastolic 2019-03-26 00:00:00 69 mm[Hg] [facility] Height 2019-03-26 00:00:00 61 [in_i] [facility] BMI (Body Mass 2019-03-26 00:00:00 33.6 kg/m2 [facility] Index) Group BP Systolic 2019-03-26 00:00:00 138 mm[Hg] [facility] Body Weight 2019-03-26 00:00:00 2848 [oz_av] [facility] BP Diastolic 2018-12-28 00:00:00 74 mm[Hg] [facility] Height 2018-12-28 00:00:00 61 [in_i] [facility] BMI (Body Mass 2018-12-28 00:00:00 33.8 kg/m2 [facility] [employer] [facility] Medical Index) Group BP Systolic 2018-12-28 00:00:00 135 mm[Hg] [facility] Body Weight 2018-12-28 00:00:00 2864 [oz_av] [facility] BP Diastolic 2018-05-31 00:00:00 71 mm[Hg] [facility] Height 2018-05-31 00:00:00 61 [in_i] [facility] BMI (Body Mass 2018-05-31 00:00:00 35 kg/m2 [facility] [employer] [facility] Index) Group BP Systolic 2018-05-31 00:00:00 133 mm[Hg] [facility] Body Weight 2018-05-31 00:00:00 2960 [oz_av] [facility] Systolic (mm Hg) 2021-04-16 14:18:00 [facility] Diastolic (mm Hg) 2021-04-16 14:18:00 [facility] Heart Rate 2021-04-16 14:18:00 [facility] Height 2021-04-16 14:18:00 154.9 cm [facility] [place] Weight 2021-04-16 14:18:00 [facility] Systolic (mm Hg) 2021-03-26 14:34:00 Kobi [facility] Diastolic (mm Hg) 2021-03-26 14:34:00 [facility] [place] Heart Rate 2021-03-26 14:34:00 [facility] [place] Temperature Oral (F) 2021-03-26 14:34:00 36.61 Leni [facility] Respitory Rate 2021-03-26 14:34:00 [facility] Height 2021-03-26 14:34:00 154.9 cm [facility] [place] Weight 2021-03-26 14:34:00 [facility] [place] Systolic (mm Hg) 2016-05-31 14:00:00 Kobi [facility] Diastolic (mm Hg) 2016-05-31 14:00:00 [facility] [place] Respitory Rate 2016-05-31 14:00:00 [facility] Temperature Oral (F) 2016-05-31 14:00:00 98.4 F [facility] Weight 2016-05-31 13:20:00 [facility] [place] BMI Calculated 2016-05-31 13:20:00 [facility] [place] Height 2016-05-31 13:20:00 154.94 cm [facility] Respitory Rate 2016-05-02 20:45:00 [facility] Systolic (mm Hg) 2016-05-02 20:45:00 Kobi [facility] Diastolic (mm Hg) 2016-05-02 20:45:00 [facility] Respitory Rate 2016-05-02 20:15:00 [facility] Systolic (mm Hg) 2016-05-02 20:15:00 [facility] [place] Diastolic (mm Hg) 2016-05-02 20:15:00 [facility] [place] Systolic (mm Hg) 2016-05-02 19:45:00 [facility] [place] Diastolic (mm Hg) 2016-05-02 19:45:00 [facility] [place] Respitory Rate 2016-05-02 19:45:00 [facility] [place] Heart Rate 2016-05-02 14:45:00 [facility] [place] Weight 2016-05-02 14:23:00 [facility] [place] BMI Calculated 2016-05-02 14:23:00 Joe peterson [place] Height 2016-04-25 17:38:00 154.94 cm [facility] Procedures Procedure Date / Time Performing Source Performed Clinician MAMMO, screening, digital, 2022-08-25 [facility] 00:00:00 Group DEXA 2022-08-25 [facility] 00:00:00 Group unlisted imaging order 2021-09-30 [facility] 00:00:00 Group CONSENT/REFUSAL FOR DIAGNOSIS AND 2021-07-28 [facility] 22:22:56 Unassigned, No [place] [facility] [place] ASSIGNMENT OF BENEFITS 2021-07-[address] [facility] of 22:22:41 Unassigned, No [facility] LUMBAR SPINE 2 VIEWS 2021-04-16 Koby Shah yb old 15:17:01 LUMBAR SPINE 2 VIEWS 2021-04-16 Koby Shah [facility] 15:17:01 XR, lumbar spine 2020-02-20 [facility] 00:00:00 Group MRI, lumbar spine, w/o contrast 2020-02-20 [facility] 00:00:00 Group unlisted imaging order 2019-06-11 [facility] 00:00:00 Group unlisted imaging order 2019-05-07 [facility] 00:00:00 Group unlisted imaging order 2018-12-28 [facility] 00:00:00 Group Cataract surgery 2012-06-05 [facility] n 00:00:00 Removal - procedure 2005-06-05 [facility] 00:00:00 Hysterectomy 1988-06-05 [facility] 00:00:00 Appendectomy 1979-06-05 [facility] 00:00:00 Breast implantation 1974-06-05 [facility] 00:00:00 Miscellaneous operations 1960-06-05 Erasmo weiner [place] 00:00:00 Appendectomy [facility] Breast Surgery [facility] Cataract Surgery [facility] Hysterectomy [facility] Other [facility] Esophagogastroduodenoscopy (Surg) [facility] Breast biopsy and related [facility] procedures Laparoscopy<sup>1</sup> [facility] Plan of Care Planned Activity Planned Date Details Comments Source Future Scheduled 2022-09-04 SHINGLES VACCINES (1 Met [facility] Test 22:48:55 of 2) [code = SHINGLES VACCINES (1 of 2)] Future Scheduled 2022-09-04 65+ [facility] 22:48:55 VACCINE (2 - PCV) [code = 65+ PNEUMOCOCCAL VACCINE (2 - PCV)] Future Scheduled 2022-09-04 INFLUENZA VACCINE [facility] Test 22:48:55 [code = INFLUENZA VACCINE] Future Scheduled 2022-09-04 COVID-19 VACCINE (#1) Me [facility] Test 22:48:55 [code = COVID-19 VACCINE (#1)] Future Scheduled 2022-09-04 Hepatitis C screening [facility] Test 22:48:55 (procedure) [code = 949872589] Future Scheduled 2022-09-04 BREAST CANCER [facility] Test 22:48:55 SCREENING [code = BREAST CANCER SCREENING] Future Scheduled 2022-09-04 COLONOSCOPY SCREENING [facility] Test 22:48:55 [code = COLONOSCOPY SCREENING] Future Scheduled 2022-05-22 COVID-19 VACCINE (#1) [facility] Test 12:47:06 [code = COVID-19 VACCINE (#1)] Future Scheduled 2022-05-22 Hepatitis C screening [facility] Test 12:47:06 (procedure) [code = 317839926] Future Scheduled 2022-05-22 BREAST CANCER [facility] Test 12:47:06 SCREENING [code = BREAST CANCER SCREENING] Future Scheduled 2022-05-22 COLONOSCOPY SCREENING [facility] Test 12:47:06 [code = COLONOSCOPY SCREENING] Future Scheduled 2022-05-22 SHINGLES VACCINES (1 Met [facility] Test 12:47:06 of 2) [code = SHINGLES VACCINES (1 of 2)] Future Scheduled 2022-05-22 65+ [facility]OCOCCAL [facility] Test 12:47:06 VACCINE (2 - PCV) [code = 65+ PNEUMOCOCCAL VACCINE (2 - PCV)] Future Scheduled 2022-05-22 INFLUENZA VACCINE [facility] Test 12:47:06 [code = INFLUENZA VACCINE] Diagnostic Test 2022-05-03 hemoglobin A1c, QN, [facility] Pending 00:00:00 blood [code = Group hemoglobin A1c, QN, blood] Diagnostic Test 2022-05-03 CMP, serum or plasma [facility] Pending 00:00:00 [code = CMP, serum or Group plasma] Future Scheduled 2022-02-03 COVID-19 Vaccination [facility] Test 16:43:03 (#1) [code = COVID-19 [facility] (#1)] Center Future Scheduled 2022-02-03 COVID-19 Vaccination [facility] Test 16:43:03 (#1) [code = COVID-19 [facility] Vaccination (#1)] Center Future Scheduled MR LUMBAR SPINE W/WO [facility] Test CONTRAST [code = 69199] Future Scheduled CREATINE, SERUM [code [facility] [place] Test = 61567] Future Scheduled Bone density scan [facility] Test (procedure) [code = 666140114] Future Scheduled PNEUMOCOCCAL 65+ (1 [facility] Test of 1 - PPSV23) [code = PNEUMOCOCCAL 65+ (1 of 1 - PPSV23)] Future Scheduled [facility]ening for [facility] malignant neoplasm of colon (procedure) [code = 405710533] Future Scheduled Screening for [facility] malignant neoplasm of breast (procedure) [code = 935243499] Future Scheduled Zoster (Shingles) [facility] [place] Test Vaccine (1 of 2) [code = Zoster (Shingles) Vaccine (1 of 2)] Future Scheduled Physical Exam 40 and [facility] [place] Test over [code = Physical Exam 40 and over] Future Scheduled Lipid panel [facility] Test (procedure) [code = 65966958] Future Scheduled TDAP [code = TDAP] [facility] [place] Test Future Scheduled EYE EXAM [code = EYE [facility] [place] Test EXAM] Future Scheduled COVID-19 Vaccination [facility] [place] Test (1) [code = COVID-19 Vaccination (1)] Encounters Start End Encounter Admission Attending Care Care Encounter Source Date/Time Date/Time Type Type Clinicians Facility Department ID 2022-11-10 Inpatient NEHEMIAH MICHELLE DIGGSN [facility] [id number] [place] 13:00:00 -[id number] [facility] 2022-09-21 Inpatient SIM HAWTHORNE [facility] [id number] [place] 10:30:00 -[id number] [facility] 2021-07-01 Outpatient 3 Crescencio ENCPL CRD [id number] [facility] 13:43:52 [facility] [place] [facility] 2021-07-01 Outpatient 3 Crescencio ENCPL CRD [id number] [facility] 13:43:45 Davion 0115 [facility] [place] 2021-07-01 Outpatient 3 [id number] ENCPL REF [id number] [facility] 13:42:53 0113 [facility] [place] 2019-08-23 Inpatient Citlali [facility] LARS [id number] 15:49:00 [facility] 2019-08-22 Inpatient [facility]lali [facility]ARS [id number] 15:55:00 [facility] 2022-11-02 2022-11-02 Outpatient Marionannette [facility] 1827-20 230 [place] 00:00:00 00:00:00 531 [facility] 2022-08-25 2022-08-25 Sim Onofre [facility] [place] - [id number] M [facility] 00:00:00 00:00:00 MD Leno: [address] Group [place], [facility] [address] [place] [address] , Ph. 2022-08-19 2022-08-19 Outpatient NEHEMIAH Godwin [facility] [id number] [place] 09:23:00 09:23:00 Devon [id number] [facility] 2022-08-11 2022-08-11 Outpatient NEHEMIAH Godwin [facility] [id number] [place] 10:04:00 10:04:00 [id number] [facility] 2022-07-12 2022-07-12 Outpatient Papito [facility] 1827-20 230 [place] 00:00:00 00:00:00 207 [facility] 2022-07-12 2022-07-12 Outpatient A_Byrd [facility] 1827-20 230 [place] 00:00:00 00:00:00 323 [facility] 2022-07-12 2022-07-12 Outpatient A_Byrd [facility] 1827-20 230 [place] 00:00:00 00:00:00 331 [facility] 2022-07-06 2022-07-06 Sim Onofre MM [place] - [id number] [facility] 00:00:00 00:00:00 MD Leno: [address] - [facility] [address] [place] [address] , Ph. 2022-05-13 2022-05-13 Outpatient A_Byrd [facility] 1827-20 221 [place] 00:00:00 00:00:00 220 [facility] 2022-05-13 2022-05-13 Outpatient A_Byrd [facility] 1827-20 230 [place] 00:00:00 00:00:00 121 [facility] 2022-05-13 2022-05-13 Outpatient A_[facility]rd [facility] 1827-20 230 [place] 00:00:00 00:00:00 201 [facility] 2022-05-03 2022-05-03 Outpatient EL SIM DIGGS [facility] [id number] [place] 16:18:00 16:18:00 -[id number] [facility] 2022-05-03 2022-05-03 Outpatient A_Byrd [facility] 1827-20 221 [place] 00:00:00 00:00:00 129 [facility] 2022-05-03 2022-05-03 Sim Onofre MM [place] - [id number] [facility] 00:00:00 00:00:00 MD Leno: [address] - [address] [place] [address] , Ph. 2022-02-26 2022-02-26 Outpatient A_Byrd [facility] 1827-20 220 [place] 00:00:00 00:00:00 924 Medical Group 2022-02-08 2022-02-08 Outpatient A_Byrd [facility] 1827-20 220 [place] 00:00:00 00:00:00 906 Medical Group 2022-02-08 2022-02-08 Lito Hua [facility] [place] - [id number] [place] 00:00:00 00:00:00 MD: Ever Perez [facility] [address] [place] [address], Otolaryngol [facility] [address] , Ph. 2022-01-05 2022-01-05 Outpatient A_Byrd [facility] 1827- 220 [place] 00:00:00 00:00:00 803 Medical Group 2022-01-04 2022-01-04 Sim PendletonByrd [facility] [place] - 1826- [place] 00:00:00 00:00:00 MD Leno: [address] [place] [address] , Ph. 2022-01-03 2022-01-03 Outpatient A_Byrd [facility] 1827- 220 [place] 00:00:00 00:00:00 801 Medical Group 2021-12-13 2021-12-13 Outpatient A_Byrd [facility] 1827-20 220 [place] 09:50:00 09:50:00 711 Medical Group 2021-09-30 2021-09-30 Outpatient EL SIM DIGGS [facility] [id number] [place] 14:54:00 14:54:00 -[id number] [facility] 2021-09-30 2021-09-30 Sim PendletonByrd [facility] [place] - 1826- [place] 00:00:00 00:00:00 MD Leno: [address] [place] [address] , Ph. 2021-09-02 2021-09-02 Outpatient Papito [facility] [id number] [place] 01:33:00 01:33:00 331 Medical Group 2021-07-30 2021-07-30 Outpatient CONCHIS LOPEZ [id number] [place] 10:30:00 10:30:00 JL Seybol d 2021-07-29 2021-07-29 Letter Marisa Nolen [id number] Univers 00:00:00 00:00:00 (Out) NIKKI [id number] it y of [facility] 4.2.7.2.686 Junior as [id number] [facility] 019 Branch 2021-07-28 2021-07-28 Outpatient Harleen YIP [facility] [id number] [facility] 16:15:00 17:11:11 SHANT edmondsy o f [facility] 2021-07-28 2021-07-28 Orders Doctor JOHNSON [id number] [place] [address] 00:00:00 00:00:00 Only Unassigned, NIKKI 350.1.13.10 ity of [employer] [facility] 4.2.7.2.686 Junior as [id number] [facility] 009 Branch 2021-07-27 2021-07-27 Sim Cobos [facility] [place] - [place] 00:00:00 00:00:00 MD Leno: [address] Group [facility] [address] [place] [address] , Ph. 2021-07-20 2021-07-20 Outpatient Papito [facility] 220 [place] 03:13:00 03:13:00 215 Medical [facility] 2021-07-19 2021-07-19 Outpatient NEHEMIAH Godwin [facility] [id number] [place] 09:18:00 09:18:00 [id number] [facility] 2021-07-13 2021-07-13 Sim Cobos [facility] [place] - [place] 00:00:00 00:00:00 MD Leno: 208 [address] 600 [facility] Group [place] - [address], [place] [address] , Ph. 2021-06-21 2021-06-29 Inpatient 3 MINA Prather CRD [id number] [facility] 13:48:00 13:19:00 Davion 0117 [facility] [place] 2021-06-28 2021-06-28 Outpatient CONCHIS SHAH [id number] [place] 10:34:00 10:34:00 AHMED Seybol d 2021-06-15 2021-06-15 Outpatient CONCHIS MANTILLA [id number] [place] 00:00:00 00:00:00 MONSERRAT Selidaol david 2021-06-11 2021-06-11 Outpatient Harleen SOLIZ [facility] [id number] Univers 13:20:00 13:20:00 LEANNA garces [facility] 2021-06-10 2021-06-10 Outpatient CONCHIS MANTILLA [id number] [place] 00:00:00 00:00:00 MONSERRAT parada 2021-06-09 2021-06-09 Outpatient CONCHIS MANTILLA [id number] [place] 00:00:00 00:00:00 MONSERRAT Selidaol david 2021-06-09 2021-06-09 Outpatient CONCHIS MANTILLA [id number] [place] 00:00:00 00:00:00 MONSERRAT Seybol d 2021-06-08 2021-06-08 Sim Cobos [facility] [place] - 1827- [place] 00:00:00 00:00:00 MD Leno: 104 [address] 600 [facility] - [address], [place] [address] , Ph. 2021-06-07 2021-06-07 Outpatient CONCHIS SHAH [id number] [place] 11:29:00 11:29:00 AHMED Seybol d 2021-05-27 2021-05-27 Outpatient CONCHIS SHAH [id number] [place] 00:00:00 00:00:00 AHMED Seybol d 2021-05-26 2021-05-26 Outpatient CONCHIS SHAH [id number] [place] 00:00:00 00:00:00 AHMED Seybol d 2021-05-25 2021-05-25 Office DIPTI Lopez 1.2.840.114 [id number] [place] 10:00:00 10:30:00 Visit [facility] 350.1.13.13 Se ybold 1.2.7.2.686 [id number] 2021-05-25 2021-05-25 Outpatient CONCHIS MANTILLA [id number] [place] 00:00:00 00:00:00 MONSERRAT Seybol d 2021-05-21 2021-05-21 Outpatient CONCHIS SHAH [id number] [place] 00:00:00 00:00:00 AHMED Seybol d 2021-05-21 2021-05-21 Outpatient KRYSTEN BARNES [id number] [place] 00:00:00 00:00:00 MD WILBER Seybol d 2021-05-21 2021-05-21 Outpatient KRYSTEN BARNES [id number] [place] 00:00:00 00:00:00 MD WILBER Seybol d 2021-05-19 2021-05-19 Outpatient CONCHIS SANTOS [id number] [place] 10:00:00 10:00:00 MAGALY Seybol d 2021-05-18 2021-05-18 Outpatient CONCHIS MANTILLA [id number] [place] 00:00:00 00:00:00 MONSERRAT Seybol d 2021-05-17 2021-05-17 Outpatient CONCHIS BARNES [id number] [place] 07:45:00 07:45:00 Seybol d 2021-05-17 2021-05-17 Outpatient CONCHIS SPRINGER [id number] [place] 00:00:00 00:00:00 ERASTO Seybol d 2021-05-08 2021-05-08 Outpatient CONCHIS MANTILLA [id number] [place] 00:00:00 00:00:00 MONSERRAT Seybol d 2021-05-07 2021-05-07 Outpatient CONCHIS MANTILLA [id number] [place] 00:00:00 00:00:00 MONSERRAT Seybol d 2021-05-07 2021-05-07 Outpatient CONCHIS MANTILLA [id number] [place] 00:00:00 00:00:00 MONSERRAT Seybol d 2021-05-06 2021-05-06 Outpatient CONCHIS SHAH [id number] [place] 00:00:00 00:00:00 AHMED Seybol d 2021-05-03 2021-05-03 Outpatient CONCHIS MANTILLA [id number] [place] 15:30:00 15:30:00 MONSERRAT Seybol d 2021-05-03 2021-05-03 Outpatient CONCHIS MANTILLA [id number] [place] 00:00:00 00:00:00 MONSERRAT Seybol d 2021-04-30 2021-04-30 Outpatient CONCHIS LOPEZ [id number] [place] 13:00:00 13:00:00 JL Seybol d 2021-04-28 2021-04-28 Outpatient CONCHIS MANTILLA [id number] [place] 00:00:00 00:00:00 MONSERRAT Seybol d 2021-04-27 2021-04-27 Outpatient [facility] CONCHIS BARNES [id number] [place] 13:00:00 13:00:00 Seybol d 2021-04-27 2021-04-27 Outpatient CONCHIS SHAH [id number] [place] 00:00:00 00:00:00 AHMED Seybol d 2021-04-27 2021-04-27 Outpatient CONCHIS MANTILLA [id number] [place] 00:00:00 00:00:00 MONSERRAT Seybol d 2021-04-27 2021-04-27 Outpatient CONCHIS ANDRADE [id number] [place] 00:00:00 00:00:00 MECCA Seybo ld 2021-04-24 2021-04-24 Outpatient CONCHIS MANTILLA [id number] [place] 00:00:00 00:00:00 MONSERRAT Seybol d 2021-04-23 2021-04-23 Outpatient CONCHIS MANTILLA [id number] [place] 00:00:00 00:00:00 MONSERRAT Seybol d 2021-04-20 2021-04-20 Outpatient CONCHIS SHAH [id number] [place] 00:00:00 00:00:00 AHMED Seybol d 2021-04-19 2021-04-19 Outpatient CONCHIS MANTILLA [id number] [place] 00:00:00 00:00:00 MONSERRAT Seybol d 2021-04-17 2021-04-17 Outpatient LAB47 CONCHIS BARNES [id number] [place] 11:05:00 11:05:00 Seybol d 2021-04-16 2021-04-16 Outpatient LAB90 CONCHIS BARNES [id number] [place] 14:50:00 14:50:00 Seybol d 2021-04-16 2021-04-16 Office nullFlavo Raphael Herr [id number] [facility] 13:58:02 14:28:02 Visit r Medical and l Diagnostic [facility] 2021-04-16 2021-04-16 Outpatient CONCHIS BARNES [id number] [place] 09:05:00 09:05:00 Seybol d 2021-04-16 2021-04-16 Office RAPHAEL SHAH 1.2.840.114 [id number] [place] 08:15:00 08:15:00 Visit [facility] 350.1.13.13 Seybold DIAGNOSTI 1.2.7.2.686 [facility] [id number] 2021-04-13 2021-04-13 Outpatient CONCHIS SHAH [id number] [place] 00:00:00 00:00:00 AHMED Seybol d 2021-04-12 2021-04-12 Outpatient CONCHIS SHAH [id number] [place] 00:00:00 00:00:00 AHMED Seybol d 2021-03-29 2021-03-29 Outpatient CONCHIS MANTILLA [id number] [place] 00:00:00 00:00:00 MONSERRAT parada 2021-03-26 2021-03-26 Office Mana Weldon [id number] [facility]oria 14:32:26 15:02:26 Visit harleen weiner [facility] 2021-03-26 2021-03-26 Office Shiraz Mantilla 1.2.840.114 [id number] [place] 09:32:26 10:02:26 Visit Monserrat Rendon 350.1.13.13 Se marjan Torri 1.2.7.2.686 [id number] 2021-03-26 2021-03-26 Outpatient CONCHIS MANTILLA [id number] [place] 09:30:00 09:30:00 MONSERRAT parada 2021-03-26 2021-03-26 Outpatient CONCHIS MANTILLA [id number] [place] 00:00:00 00:00:00 MONSERRAT parada 2021-02-23 2021-02-23 Letter ALEX Willett [id number] Univers 00:00:00 00:00:00 (Out) Jason JORDAN 350.1.13.10 it y of [facility] 4.2.7.2.686 Junior as [id number] [address] 2021-02-22 2021-02-22 Laboratory Only, Ang Db Test [facility] 1.2.8 40.114 [id number] Univers 19:30:19 19:45:19 Only Leanna Soliz [facility] 350.1.13.10 ity [facility] [id number] Junior as Sebastian?Blea [phone] [address] Medical Office Building 2021-02-22 2021-02-22 Outpatient Harleen SOLIZ [facility] [id number] Univers 19:15:00 19:15:00 LEANNA ity [facility] 2021-02-18 2021-02-18 Sim Cobos [facility] [place] - [id number] [facility] 00:00:00 00:00:00 MD Leno: [address], [place] [phone] , Ph. 2021-01-08 2021-01-08 Outpatient CONCHIS MANTILLA [id number] 10:30:00 10:30:00 MONSERRAT Seybol d 2021-01-08 2021-01-08 Outpatient CONCHIS MANTILLA [id number] 10:15:00 10:15:00 MONSERRAT Seybol d 2021-01-08 2021-01-08 Outpatient CONCHIS MANTILLA [id number] [place] 00:00:00 00:00:00 MONSERRAT Seybol d 2021-01-04 2021-01-04 Outpatient CONCHIS MANTILLA [id number] [place] 16:00:00 16:00:00 MONSERRAT Seybol d 2020-11-10 2020-11-10 Sim Cobos [facility] [place] - 1826- [place] 00:00:00 00:00:00 MD Leno: [address] [place] [phone] , Ph. 2020-09-11 2020-09-11 Outpatient Sim [place] [facility] [facility] D000 [id number] [place] 10:09:00 10:09:00 -[id number] [facility] 2020-08-31 2020-08-31 Outpatient Papito [facility] 1827- 210 [place] 03:23:00 03:23:00 329 [facility] 2020-08-19 2020-08-19 Sim Cobos [facility] [place] - 7- [place] 00:00:00 00:00:00 MD Leno: [address] [address], [place] [address] , Ph. 2020-08-13 2020-08-13 [facility]patient [facility] 1827-20 210 [place] 05:30:00 05:30:00 311 [facility] 2020-08-13 2020-08-13 Megan Cope [id number] [place] 00:00:00 00:00:00 Only harleen Carballo 2020-07-14 2020-07-14 Outpatient A_Byrd [facility]G [facility] 1827-20 210 [place] 02:56:00 02:56:00 209 [facility] 2020-04-22 2020-04-22 Outpatient A_Byrd MMG [facility]G 1827-20 201 [place] 02:42:00 02:42:00 118 [facility] 2020-04-06 2020-04-06 Outpatient [facility] [id number] [place] 00:00:00 00:00:00 PATRICIA, 845 Method [facility] 2020-03-24 2020-03-24 Outpatient [facility] [id number] [place] 00:00:00 00:00:00 PATRICIA, 795 [facility] 2020-03-24 2020-03-24 Outpatient [facility] [id number] [place] 00:00:00 00:00:00 PATRICIA, 547 Method [facility] 2020-03-24 2020-03-24 Outpatient [facility] [id number] [place] 00:00:00 00:00:00 PATRICIA, [address] 2020-03-04 2020-03-04 Outpatient A_Byrd MMG MMG 1827-20 200 [place] 10:00:00 10:00:00 930 [facility] 2020-02-20 2020-02-20 Sim Onofre [facility] [place] - [place] 00:00:00 00:00:00 MD Leno: [address] Group [place] - [address], [place] [address] , Ph. 2020-01-28 2020-01-28 Outpatient IHDE_G MMG MMG 1827- 200 [place] 11:38:00 11:38:00 825 [facility] Group 2019-12-11 2019-12-11 Sim Onofre IH[facility]_G MMG - [place] 00:00:00 00:00:00 MD Leno: 708 da 600 [facility] - [address], [facility], [place] [address] , Ph. 2019-10-29 2019-10-29 Sim Onofre [facility]_G MMG - [place] 00:00:00 00:00:00 MD Leno: 526 da 600 [facility] - [address], [facility], [place] [address] , Ph. 2019-08-23 2019-08-23 Outpatient 3 Devon Godwin [facility] [id number] 05:29:00 05:29:00 Devon Godwin -[id number] [facility] 2019-08-12 2019-08-12 Outpatient IHDE_G MMG MMG 1827-20 200 [place] 11:08:00 11:08:00 309 [facility] Group 2019-08-07 2019-08-07 Outpatient IHDE_G MMG MMG 1827-20 200 [place] 09:34:00 09:34:00 304 [facility] 2019-07-30 2019-07-30 Outpatient NEHEMIAH Godwin [facility] [id number] [place] 11:38:00 11:38:00 [id number] [facility] 2019-07-22 2019-07-22 Outpatient IHDE_G MMG MMG 1827-20 200 [place] 04:59:00 04:59:00 217 [facility] Group 2019-07-18 2019-07-18 Simón IHDE_G MMG [place] 00:00:00 00:00:00 Agus Contreras MD: [facility] [address] [place] [address] General [address], [place] [address] , Ph. [phone] 2019-07-05 2019-07-05 Outpatient IHDE_G MMG MMG 1827-20 200 [place] 09:08:00 09:08:00 131 [facility] 2019-07-01 2019-07-01 Outpatient IHDE_G MMG [facility] 1827-20 200 [place] 05:18:00 05:18:00 127 [facility] 2019-06-28 2019-06-28 Outpatient EL Simón Menon [facility] D00 [id number] [place] 08:20:00 08:20:00 -[id number] [facility] 2019-06-26 2019-06-26 Outpatient IHDE_G MMG [facility] 1827- 200 [place] 10:39:00 10:39:00 122 [facility] 2019-06-19 2019-06-19 Outpatient A_Byrd MMG [facility] 1827-20 200 [place] 10:35:00 10:35:00 115 [facility] 2019-06-18 2019-06-18 Outpatient A_Byrd MMG [facility] 1827-20 200 [place] 12:09:00 12:09:00 114 [facility] 2019-06-11 2019-06-11 Simón A_Byrd [facility] [place] 00:00:00 00:00:00 Agus Perez 107 yefri Menon MD: Medical Medica [address] [address] , Ph. [phone] 2019-05-22 2019-05-22 Outpatient NEHEMIAH Diggs Alan [facility] D000 [id number] [place] 10:52:00 10:52:00 -[id number] [facility] 2019-05-22 2019-05-22 Sim Onofre [facility] [place] 00:00:00 00:00:00 MD Leno: 218 da 600 [facility] - [address], [place] [address] , Ph. 2019-05-07 2019-05-07 Sim Onofre [facility] [place] - [place] 00:00:00 00:00:00 MD Leno: 203 da 600 [facility] - [address], [place] [address] , Ph. 2019-03-26 2019-03-26 Outpatient EL Sim Diggs [facility] D000 [id number] [place] 11:28:00 11:28:00 -[id number] [facility] 2019-03-26 2019-03-26 Sim Onofre [facility] [place] - 1827- [place] 00:00:00 00:00:00 MD Leno: [address], [place] [address] , Ph. 2019-01-09 2019-01-09 Emergency ER OWO, TOKS [facility] [id number] [place] 11:24:00 15:44:00 -[id number] [facility] 2018-12-28 2018-12-28 Outpatient EL Michelle Diggsn [facility] D000 [id number] [place] 11:31:00 11:31:00 -[id number] [facility] 2018-12-28 2018-12-28 Sim Onofre [facility] [place] - [id number] [place] 00:00:00 00:00:00 MD Leno: [address], [place] [address] , Ph. 2018-05-31 2018-05-31 Sim Onofre [facility] [place] - 1827- [place] 00:00:00 00:00:00 MD Leno: [address], [place] [address] , Ph. 2018-05-03 2018-05-03 Outpatient EL Michelle Diggsn [facility] D000 [id number] [place] 10:17:00 10:17:00 -[id number] [facility] 2018-04-05 2018-04-05 Outpatient EL Michelle Diggsn [facility] D000 [id number] [place] 10:55:00 10:55:00 -[id number] [facility] 2016-07-27 2016-07-27 Emergency ER BRET [facility] [id number] [place] 10:51:00 16:15:00 CLEMENT -[id number] [facility] 2016-05-31 2016-06-01 Outpatient [facility] 4622 [id number] [place] 12:55:00 05:59:00 r Haris 01 l [place] 2016-05-31 2016-06-01 Outpatient [facility] 4622 [id number] [place] 12:55:00 05:59:00 r Haris 01 l [place] 2016-05-31 2016-05-31 Outpatient Esau, MHSL MHSL [id number] 06:55:00 23:59:00 Tee 01 2016-05-02 2016-05-02 Day [facility] [id number] [place] 13:55:11 21:05:00 Surgery r [place] 00 l [place] 2016-05-02 2016-05-02 Day [facility] [id number] [place] 13:55:11 21:05:00 Surgery r [place] 00 l [place] 2016-05-02 2016-05-02 Outpatient [place], MHSL MHSL [id number] 07:55:11 15:05:00 Yanick Ana Rosa Matild[place] 2016-02-22 2016-02-22 Outpatient Sim Hawthorne [facility] D000 [id number] [place] 09:44:00 09:44:00 -[id number] [facility] 2016-02-02 2016-02-02 Outpatient Sim Hawthorne [facility] D000 [id number] [place] 14:26:00 14:26:00 -[id number] [facility] 2016-01-14 2016-01-14 Outpatient Sim Hawthorne [facility] D000 [id number] [place] 09:25:00 09:25:00 -[id number] [facility] 2015-09-25 2015-09-25 Outpatient Sim Hawthorne [facility] D000 [id number] [place] 09:16:00 09:16:00 -[id number] [facility] 2014-10-17 2014-10-17 Outpatient DALILA HEBERT [facility] [id number] [place] 12:18:00 12:18:00 CAMILLE -[id number] [facility] 2014-10-10 2014-10-10 Emergency ER BRET, [facility] [id number] [place] 13:08:00 16:26:00 SADI -[id number] [facility] 2014-10-07 2014-10-07 Outpatient NEHEMIAH WING, [facility] [id number] [place] 17:22:00 17:22:00 CAMILLE -[id number] [facility] 2014-05-19 2014-05-19 Outpatient NEHEMIAH Godwin, [facility] [id number] [place] 10:39:00 10:39:00 Devon -[id number] [facility] 2013-12-18 2013-12-18 Outpatient NEHEMIAH WING, [facility] [id number] [place] 09:03:00 09:03:00 CAMILLE -[id number] [facility] 2013-05-24 2013-05-24 Outpatient NEHEMIAH Godwin, [facility] [id number] [place] 07:15:00 07:15:00 Devon -[id number] [facility] 2013-04-04 2013-04-04 Outpatient NEHEMIAH Godwin, [facility] [id number] [place] 11:03:00 11:03:00 Devon -[id number] [facility] 2012-05-04 2012-05-04 Outpatient NEHEMIAH BARTON, [facility] [id number] [place] 10:03:00 10:03:00 KRYS -[id number] [facility] 2012-05-03 2012-05-03 Outpatient CLAIR BARTON, [facility] [id number] [place] 11:17:00 11:17:00 KRYS -[id number] [facility] 2012-04-30 2012-05-01 Emergency ER ERIK CHIN, [facility] D000 [id number] [place] 22:02:00 02:22:00 NORRIS [id number] [facility] 2012-03-27 2012-03-27 Outpatient NEHEMIAH HUSTON, [facility] [id number] [place] 16:26:00 16:26:00 CELIA [id number] [facility] 2011-11-14 2011-11-14 Outpatient NEHEMIAH HUSTON, [facility] [id number] [place] 09:15:00 09:15:00 CELIA -[id number] [facility] 2010-08-23 2010-08-23 Emergency ER IMMARAJ, [facility] [id number] [place] 09:51:00 15:24:00 SHAKEEL -[id number] d a [facility] 2009-04-21 2009-04-21 Outpatient NEHEMIAH BARTON, [facility] [id number] [place] 11:32:00 11:32:00 KRYS -[id number] [facility] 2007-07-03 2007-07-03 Emergency ER UGORGIOVANI, [facility] [id number] [place] 15:37:00 17:30:00 SADI -[id number] [facility] 1998-04-07 1998-04-08 Emergency ER SYLWIA, [facility] [id number] [place] 23:31:00 00:45:00 WILFRED -[id number] [facility] Results Test Description Test Time Test Comments Results Result Comments Source basic metabolic panel 2022-08-11 11:25:00 Test Item Value Reference Range Interpretation Comme nts glucose (test code = glucose) 93 mg/dL 82-115 blood urea nitrogen (test code = blood urea nitrogen) 14 mg/dL 8-23 osmolality calculated,serum (test code = osmolality 280 mOsm/kg 28 0-300 calculated,serum) creatinine (test code = creatinine) 0.81 mg/dL 0.50-0.90 glomerular filtration rate (test code = glomerular > 60.00 filtration rate) BUN/creatinine ratio (test code = BUN/creatinine ratio) 17.3 12.0-20.0 sodium level (test code = sodium level) 140 mmol/L 135-145 potassium level (test code = potassium level) 4.2 mmol/L 3.5-5.2 chloride level (test code = chloride level) 101 mmol/L 98-108 CO2 (test code = CO2) 27 mmol/L 21-32 anion gap (test code = anion gap) 16.2 mEq/L 12.0-20.0 calcium level (test code = calcium level) 9.2 mg/dL 8.8-10.2 [id number] 11:25:00 Test Item Value Reference Range Interpretation Comments cholesterol level (test code = 156 mg/dL 150-200 cholesterol level) triglycerides level (test code = 211 mg/dL <150 H triglycerides level) HDL cholesterol (test code = HDL 52 mg/dL >65 L cholesterol) Cholesterol in LDL [Mass/volume] in 78 mg/dL <100 Serum or Plasma (test code = 2089-1) cholesterol risk ratio (test code = 3.000 cholesterol risk ratio) [facility] [id number] 11:18:00 Test Item Value Reference Range Interpretation Comments erythrocyte sedimentation rate (test 21 mm/HR 0.00-20 H code = erythrocyte sedimentation rate) [facility] Differential panel - [id number] 11:09:00 Test Item Value Reference Range Interpretation Comments white blood count (test code = 8.9 K/uL 4.0-11.5 white blood count) red blood count (test code = red 4.31 M/uL 3.80-5.20 blood count) hemoglobin (test code = 12.9 g/dL 10.5-15.7 hemoglobin) hematocrit (test code = 39.0 % 34.0-50.0 hematocrit) mean corpuscular volume (test code 90.5 fL 86.0-100.0 = mean corpuscular volume) mean corpuscular hemoglobin (test 29.9 pg 26.2-33.4 code = mean corpuscular hemoglobin) mean corpuscular HGB conc (test 33.1 g/dL 30.0-34.0 code = mean corpuscular HGB conc) red cell distribution width (test 14.5 % 12.0-15.5 code = red cell distribution width) platelet count (test code = 204 K/uL 165-450 platelet count) mean platelet volume (test code = 10.7 fL 9.4-12.6 mean platelet volume) neutrophils % (test code = 55.0 % 44.4-80.1 neutrophils %) Ig% (test code = Ig%) 0.2 % 0.0-0.4 lymphocyte% (test code = 33.9 % 10.0-50.0 lymphocyte%) mono % (test code = mono %) 7.7 % 3.6-12.0 eos % (test code = eos %) 2.6 % 0.0-5.4 basophil % (test code = basophil 0.6 % 0.1-1.2 %) absolute neutrophil count (test 4.89 K/uL 1.56-6.13 code = absolute neutrophil count) Ig# (test code = Ig#) 0.02 K/uL 0.00-0.03 lymph # (test code = lymph #) 3.01 K/uL 1.18-3.74 mono # (test code = mono #) 0.68 K/uL 0.24-0.86 eos # (test code = eos #) 0.23 K/uL 0.04-0.36 basophil # (test code = basophil 0.05 K/uL 0.01-0.08 #) NRBC% (test code = NRBC%) 0 /100 WBC 0-0.2 NRBC# (test code = NRBC#) 0 K/uL [facility] W Auto Differential panel - [id number] 08:37:00 Test Item Value Reference Range Interpretation Comments white blood count (test code = 5.9 K/uL 4.0-11.5 white blood count) red blood count (test code = red 4.28 M/uL 3.80-5.20 blood count) hemoglobin (test code = 10.9 g/dL 10.5-15.7 hemoglobin) hematocrit (test code = 37.0 % 34.0-50.0 hematocrit) MCV [Entitic volume] (test code = 86.4 fL 86.0-100.0 27939-2) mean corpuscular hemoglobin (test 25.5 pg 26.2-33.4 L code = mean corpuscular hemoglobin) mean corpuscular HGB conc (test 29.5 g/dL 30.0-34.0 L code = mean corpuscular HGB conc) red cell distribution width (test 18.1 % 12.0-15.5 H code = red cell distribution width) platelet count (test code = 283 K/uL 165-450 platelet count) mean platelet volume (test code = 11.4 fL 9.4-12.6 mean platelet volume) Segmented neutrophils/100 39.2 % 44.4-80.1 L leukocytes in Blood (test code = 41567-2) Immature granulocytes [#/volume] 0.01 K/uL 0.00-0.03 in Blood (test code = 28198-1) lymphocyte% (test code = 48.7 % 10.0-50.0 lymphocyte%) mono % (test code = mono %) 8.4 % 3.6-12.0 eos % (test code = eos %) 3.0 % 0.0-5.4 Basophils/100 leukocytes in 0.5 % 0.1-1.2 Specimen (test code = 31565-4) Band form neutrophils [#/volume] 2.33 K/uL 1.56-6.13 in Blood (test code = 21367-9) Lymphocytes [#/volume] in Specimen 2.89 K/uL 1.18-3.74 by Automated count (test code = 94271-3) mono # (test code = mono #) 0.50 K/uL 0.24-0.86 eos # (test code = eos #) 0.18 K/uL 0.04-0.36 basophil # (test code = basophil 0.03 K/uL 0.01-0.08 #) NRBC% (test code = NRBC%) 0 /100 WBC 0-0.2 NRBC# (test code = NRBC#) 0 K/uL [facility] metabolic 2000 panel - Serum or [id number] 08:37:00 Test Item Value Reference Range Interpretation [...] code = 9.6 mg/dL 8.8-10.2 calcium level) [facility] 1996 panel - Serum or [id number] 08:37:00 Test Item Value Reference Range Interpretation Comments cholesterol level (test code = 195 mg/dL 150-200 cholesterol level) triglycerides level (test code = 280 mg/dL <150 H triglycerides level) HDL cholesterol (test code = HDL 51 mg/dL >65 L cholesterol) LDL cholesterol direct (test code = 105 mg/dL <100 H LDL cholesterol direct) cholesterol risk ratio (test code = 3.823 cholesterol risk ratio) [facility], method unspecified - [id number] 00:00:00NeutrophilsBandLymphocyteAtypical LymphMonocyteEosinophilBasophilAbs Neutrophil Count (Man)Abs LymphCount (Man)Abs Monocyte Count (Man)Abs Eosinophil Count (Man)Abs Basophil Count (Man)Platelet EstimatePlatelet MorphologyAnisocytosisMicrocytosisMatagoHighland Community HospitalPotassium Level 2019-08-23 09:37:59 Test Item Value Reference Range Interpretation Comments Potassium Level (test code = 3.3 mmol/L 3.5-5.1 L Potassium Level) Basic Metabolic [id number] 08:39:57 Test Item Value Reference Range Interpretation [...] 8.3-10.5 code = Calcium Level) Basic Metabolic [id number] 08:39:57 Test Item Value Reference Range Interpretation [...] ag e have not been validated by [facility] MDRD study and should be interpreted wit h caution. eGFR R esult Interpretation: eGFR > or = 60 is in the Normal RangeeGF R < 60 may mean kid steve diseaseeGFR < 1 5 may mean kidney failure Rang es recommended by the National Kidney Foundation, http://nkdep.ni h.gov Basic Metabolic [id number] 08:39:57 Test Item Value Reference Range Interpretation Comments Sodium Level (test 132.0 mmol/L 135.0-145.0 L code = Sodium Level) Potassium Level >10.0 mmol/L 3.5-5.1 Critical res ults (test code = called to ES[facility] Potassium Level) at 0 08:39:49 CDT by [...] ag e have not been validated by [facility] MDRD study and should be interpreted [...] account, if the information is provided. If e race is not provided, and t he patient is -Roselia n, multiply by 1.2 12. If sex is not provided, and t he patient is fema le, multiply by 0.7 42. Results for pat ients <18 years of ag e have not been validated by [facility] MDRD study and should be interpreted wit h caution. eGFR R esult Interpretation: eGFR > or = 60 is in the Normal RangeeGF R < 60 may mean kid steve diseaseeGFR < 1 5 may mean kidney failure Rang es recommended by the National Kidney Foundation, http://nkdep.ni h.gov Prothrombin Time and [id number] 08:30:21 Test Item Value Reference Range Interpretation Comments Prothrombin Time (test code = 12.2 seconds 9.8-13.4 Prothrombin Time) INR (test code = INR) 1.0 ratio 0.6-1.2 Partial Thromboplastin [id number] 08:30:21 Test Item Value Reference Range Interpretation Comments Partial Thromboplastin Time 33.10 seconds 24.39-37.25 (test code = Partial Thromboplastin Time) Complete Blood Count with [id number] 08:21:36 Test Item Value Reference Range Interpretation [...] code = IPF) 0 % N Automated [id number] 08:21:36 Test Item Value Reference Range Interpretation Comments Neutro Auto (test code = Neutro 41.9 % 36.0-70.0 Auto) Lymph Auto (test code = Lymph Auto) 45.2 % 12.0-44.0 H Greene Auto (test code = Greene Auto) 10.5 % 0.0-11.0 Eos, Auto (test code = Eos, Auto) 1.7 % 0.0-7.0 Basophil Auto (test code = Basophil 0.4 % 0.0-2.0 Auto) Neutro Absolute (test code = Neutro 2.9 x10 1.6-7.4 Absolute) Lymph Absolute (test code = Lymph 3.11 x10 .50-4.60 Absolute) Greene Absolute (test code = Greene .72 x10 .00-1.20 Absolute) Eos Absolute (test code = Eos 0.12 x10 0.00-0.74 Absolute) Baso Absolute (test code = Baso 0.03 x10 0.00-0.21 Absolute) IG [id number] 08:21:36 Test Item Value Reference Range Interpretation Comments IG (test code = IG) 0.3 % 0.0-5.0 IG Abs (test code = IG Abs) 0 x10 N CBC W Auto Differential panel - [id number] 07:27:00 Test Item Value Reference Range Interpretation Comments white blood count (test code = 5.6 K/uL 4.0-11.5 white blood count) red blood count (test code = red 4.54 M/uL 3.80-5.20 blood count) hemoglobin (test code = 10.5 g/dL 10.5-15.7 hemoglobin) hematocrit (test code = 34.3 % 34.0-50.0 hematocrit) Erythrocyte mean corpuscular 75.6 fL 86-100 L volume [Entitic volume] (test code = 77795-5) mean corpuscular hemoglobin (test 23.1 pg 26.2-33.4 [...] 44.4-80.1 leukocytes in Blood (test code = 02914-9) Granulocytes Immature [#/volume] 0.0 K/uL 0.0-0.03 in Blood (test code = 95342-2) lymphocyte% (test code = 37.5 % 10.0-50.0 lymphocyte%) mono % (test code = mono %) 6.9 % 3.6-12.0 eos % (test code = eos %) 3.0 % 0.0-5.4 Basophils/100 leukocytes in 0.5 % 0.1-1.2 Unspecified specimen (test code = 14502-6) Neutrophils.band form [#/volume] 2.92 K/uL 1.56-6.13 in Blood (test code = 01455-2) Lymphocytes [#/volume] in 2.1 K/uL 1.18-3.74 Unspecified specimen by Automated count (test code = 95723-8) mono # (test code = mono #) 0.39 K/uL 0.24-0.86 eos # (test code = eos #) 0.17 K/uL 0.04-0.36 basophil # (test code = basophil 0.03 K/uL 0.01-0.08 #) NRBC% (test code = NRBC%) 0 /100 WBC 0-0.2 NRBC# (test code = NRBC#) 0 K/uL [facility], [id number] 07:27:00 NeutrophilsBandLymphocyteAtypical LymphMonocyteEosinophilMetamyelocyteMyelocytePlatelet EstimatePlatelet MorphologyDifferential comment-[facility]Comprehensive [facility] 2000 panel - Serum or [id number] 07:27:00 Test Item Value Reference Range Interpretation [...] Serum or Plasma (test code = 6768-6) [facility] HospitalTroponin I.cardiac [Mass/volume] in [id number] 07:27:00 Test Item Value Reference Range Interpretation Comments cardiac troponin I (test code = cardiac <0.30 0.0-0.5 troponin I) [facility] HospitalCreatine kinase.MB [Mass/volume] in Serum or Plasma 2019-06-29 07:27:00 Test Item Value Reference Range Interpretation Comments mass creatinine kinase-mb (test 1.7 NG/mL 0.0-3.6 code = mass creatinine kinase-mb) [facility] HospitalTroponin I.cardiac [Mass/volume] in [id number] 11:38:00 Test Item Value Reference Range Interpretation Comments cardiac troponin I (test code = cardiac <0.30 0.0-0.5 troponin I) [facility] HospitalCreatine kinase.MB [Mass/volume] in Serum or Plasma 2019-06-28 11:38:00 Test Item Value Reference Range Interpretation Comments mass creatinine kinase-mb (test 1.6 NG/mL 0.0-3.6 code = mass creatinine kinase-mb) [facility] [id number] 08:35:00 Test Item Value Reference Range Interpretation Comments Surgical pathology see separate pathology study (test code = report. 31774-2) [facility] HospitalTroponin I.cardiac [Mass/volume] in [id number] 06:27:00 Test Item Value Reference Range Interpretation Comments cardiac troponin I (test code = cardiac <0.30 0.0-0.5 troponin I) [facility] HospitalCreat[facility] kinase.MB [Mass/volume] in Serum or Plasma 2019-06-28 06:27:00 Test Item Value Reference Range Interpretation Comments mass creatinine kinase-mb (test 1.7 NG/mL 0.0-3.6 code = mass creatinine kinase-mb) [facility] kinase [Enzymatic activity/volume] in Serum or [id number] 01:44:00 Test Item Value Reference Range Interpretation Comments creatine kinase (test code = creatine 40 U/L 20-180 kinase) [facility] HospitalT[facility] I.cardiac [Mass/volume] in [id number] 01:44:00 Test Item Value Reference Range Interpretation Comments cardiac troponin I (test code = cardiac <0.30 0.0-0.5 troponin I) [facility] Hospital[facility] kinase.MB [Mass/volume] in Serum or Plasma 2019-06-28 01:44:00 Test Item Value Reference Range Interpretation Comments mass creatinine kinase-mb (test 1.5 NG/mL 0.0-3.6 code = mass creatinine kinase-mb) [facility] W Auto Differential panel - [id number] 10:00:00 Test Item Value Reference Range Interpretation Comments white blood count (test code = 7.0 K/uL 4.0-11.5 white blood count) red blood count (test code = red 4.56 M/uL 3.80-5.20 blood count) hemoglobin (test code = 11.0 g/dL 10.5-15.7 hemoglobin) hematocrit (test code = 34.2 % 34.0-50.0 hematocrit) Erythrocyte mean corpuscular 75.0 fL 86-100 L volume [Entitic volume] (test code = 18497-7) mean corpuscular hemoglobin (test 24.1 pg 26.2-33.4 [...] 44.4-80.1 leukocytes in Blood (test code = 03785-0) Granulocytes Immature [#/volume] 0.0 K/uL 0.0-0.03 in Blood (test code = 27625-1) lymphocyte% (test code = 44.7 % 10.0-50.0 lymphocyte%) mono % (test code = mono %) 8.6 % 3.6-12.0 eos % (test code = eos %) 0.9 % 0.0-5.4 Basophils/100 leukocytes in 0.6 % 0.1-1.2 Unspecified specimen (test code = 09268-5) Neutrophils.band form [#/volume] 3.16 K/uL 1.56-6.13 in Blood (test code = 85924-9) Lymphocytes [#/volume] in 3.1 K/uL 1.18-3.74 Unspecified specimen by Automated count (test code = 79851-4) mono # (test code = mono #) 0.60 K/uL 0.24-0.86 eos # (test code = eos #) 0.06 K/uL 0.04-0.36 basophil # (test code = basophil 0.04 K/uL 0.01-0.08 #) NRBC% (test code = NRBC%) 0 /100 WBC 0-0.2 NRBC# (test code = NRBC#) 0 [facility] [id number] 10:00:00 NeutrophilsBandLymphocyteAtypical LymphMonocytePlatelet EstimateCentral Mississippi Residential CenterATOLOGY2016-12-27 14:00:00 Test Item Value Reference Range Interpretation Comments Eosinophils # (test code 0.2 See_Comment [A utomated message] The = Eosinophils #) system [facility] generated this result tra nsmitted reference range : <=0.5. The reference r caren was not used to int erpret this result as normal/abnormal . [facility] SouthDaczwbmWVTYWUWFON8495-57-97 14:00:00 Test Item Value Reference Range Interpretation Comments Monocytes (test code = Monocytes) 5.5 2.0-12.0 [facility] SouthXgcbojxBFAEVVSXEZ8717-62-72 14:00:00 Test Item Value Reference Range Interpretation Comments Segs (test code = Segs) 57.7 45.0-75.0 [facility] SouthDgbbtviSGKADJDTJW8787-09-48 14:00:00 Test Item Value Reference Range Interpretation Comments Lymphocytes (test code = Lymphocytes) 33.5 20.0-40.0 [facility] SouthFkqndzcDAJKLXEPQR1946-58-03 14:00:00 Test Item Value Reference Range Interpretation Comments Eosinophils (test code = 2.9 See_Comment [A utomated message] The Eosinophils) system which ge nerated this result tra nsmitted reference range : <=4.0. The reference r caren was not used to int erpret this result as normal/abnormal . [facility] SouthAkgehpnFXAGPOUJLF8801-86-87 14:00:00 Test Item Value Reference Range Interpretation Comments Segs-Bands # (test code = Segs-Bands #) 4.9 1.5-8.1 [facility] SouthTrgracdAFINVRRRYP3131-75-38 14:00:00 Test Item Value Reference Range Interpretation Comments Lymphocytes # (test code = Lymphocytes 2.9 1.0-5.5 #) [facility] SouthHffbnfzMNKQJJRKDR5095-80-65 14:00:00 Test Item Value Reference Range Interpretation Comments Monocytes # (test code 0.5 See_Comment [Aut omated message] The = Monocytes #) system which generated this result tra nsmitted reference range : <=0.8. The reference r caren was not used to int erpret this result as normal/abnormal . [facility] SouthSqxqdfkCGJPVTTIRG6289-80-19 14:00:00 Test Item Value Reference Range Interpretation Comments Basophils (test code = 0.4 See_Comment [Aut omated message] The Basophils) system which ge nerated this result tra nsmitted reference range : <=1.0. The reference r caren was not used to int erpret this result as normal/abnormal . [facility] SouthHsfxtjpJKLKWIGAJX2315-14-53 14:00:00 Test Item Value Reference Range Interpretation Comments Basophils # (test code 0.0 See_Comment [Aut omated message] The = Basophils #) system which generated this result tra nsmitted reference range : <=0.2. The reference r caren was not used to int erpret this result as normal/abnormal . [facility] SouthGsbiqqbQCUJCGHCLC0093-83-27 14:00:00 Test Item Value Reference Range Interpretation Comments Large Plt (test code = Large Plt) Slight [facility] SouthWzlksmeHZLNFTZLXN7019-42-53 14:00:00 Test Item Value Reference Range Interpretation Comments Hgb (test code = Hgb) 13.3 12.0-16.0 [facility] SouthPhruhdgWLFTATMVUK3252-55-13 14:00:00 Test Item Value Reference Range Interpretation Comments WBC (test code = WBC) 8.5 3.7-10.4 [facility] SouthMesglztBCCKHKKCDX5142-75-71 14:00:00 Test Item Value Reference Range Interpretation Comments RBC (test code = RBC) 4.72 4.20-5.40 [facility] SouthZhtikjgAXUOATUEGZ6631-07-24 14:00:00 Test Item Value Reference Range Interpretation Comments MCHC (test code = MCHC) 32.7 32.0-36.0 [facility] SouthWymyhylHDVQTGAEHZ4161-44-46 14:00:00 Test Item Value Reference Range Interpretation Comments MCH (test code = MCH) 28.2 pg 27.0-31.0 [facility] SouthAmirmwgCRELMLUOXI4723-26-55 14:00:00 Test Item Value Reference Range Interpretation Comments RDW (test code = RDW) 15.7 11.5-14.5 [facility] SouthIkvyddnDDJDONXTQT4708-44-60 14:00:00 Test Item Value Reference Range Interpretation Comments MCV (test code = MCV) 86.5 80.0-98.0 [facility] SouthPuzzfkoMBQUBYKSKN6604-77-55 14:00:00 Test Item Value Reference Range Interpretation Comments Hct (test code = Hct) 40.8 36.0-48.0 [facility] SouthNszzrrzEKHHMPQEDY6911-67-48 14:00:00 Test Item Value Reference Range Interpretation Comments MPV (test code = MPV) 9.6 7.4-10.4 [facility] SouthBfrmklbBZBLVEKAOR9377-12-43 14:00:00 Test Item Value Reference Range Interpretation Comments Platelet (test code = Platelet) 268 133-450 [facility] SouthSpwywoaFDNZDRXQPK1639-30-11 14:00:00 Test Item Value Reference Range Interpretation Comments PT (test code = PT) 13.5 s 12.0-14.7 [facility] SouthJhxlykkKQXOWNKSWP1815-07-86 14:00:00 Test Item Value Reference Range Interpretation Comments INR (test code = INR) 1.01 0.85-1.17 [facility] SouthOsatqgnOUXPCPMZCU9108-20-15 14:00:00 Test Item Value Reference Range Interpretation Comments PTT (test code = PTT) 33.2 s 22.9-35.8 [facility] SouthYhwzfxkYLEMCRWZEU6762-53-44 14:00:00 Test Item Value Reference Range Interpretation Comments Platelet (test code = Platelet) 276 133-450 [facility] SouthWiigrurXBHXXWMTMT0933-96-78 14:00:00 Test Item Value Reference Range Interpretation Comments Eosinophils # (test code 0.2 See_Comment [A utomated message] The = Eosinophils #) system whic h generated this result tra nsmitted reference range : <=0.5. The reference r caren was not used to int erpret this result as normal/abnormal . [facility] SouthVsqjakaCPHUTIDOFH3859-22-58 14:00:00 Test Item Value Reference Range Interpretation Comments Monocytes (test code = Monocytes) 5.5 2.0-12.0 [facility] SouthGcfbaahIWVTGVHULS8485-51-75 14:00:00 Test Item Value Reference Range Interpretation Comments Segs (test code = Segs) 57.7 45.0-75.0 [facility] SouthOyhjoboSFYWUFSTTS0032-84-38 14:00:00 Test Item Value Reference Range Interpretation Comments Lymphocytes (test code = Lymphocytes) 33.5 20.0-40.0 [facility] SouthXdtcoogGQMTYFEGQF9331-27-28 14:00:00 Test Item Value Reference Range Interpretation Comments Eosinophils (test code = 2.9 See_Comment [A utomated message] The Eosinophils) system which ge nerated this result tra nsmitted reference range : <=4.0. The reference r caren was not used to int erpret this result as normal/abnormal . [facility] SouthFfaoelnGISPPBWUZS4303-77-73 14:00:00 Test Item Value Reference Range Interpretation Comments Segs-Bands # (test code = Segs-Bands #) 4.9 1.5-8.1 [facility] SouthNvbfeoeFPGDGHTGKC0261-02-88 14:00:00 Test Item Value Reference Range Interpretation Comments Lymphocytes # (test code = Lymphocytes 2.9 1.0-5.5 #) [facility] SouthFalybgwWLXKEUHHVZ9840-29-18 14:00:00 Test Item Value Reference Range Interpretation Comments Monocytes # (test code 0.5 See_Comment [Aut omated message] The = Monocytes #) system which generated this result tra nsmitted reference range : <=0.8. The reference r caren was not used to int erpret this result as normal/abnormal . [facility] SouthOeawfupICZBNVFQSF1994-56-44 14:00:00 Test Item Value Reference Range Interpretation Comments Basophils (test code = 0.4 See_Comment [Aut omated message] The Basophils) system which ge nerated this result tra nsmitted reference range : <=1.0. The reference r caren was not used to int erpret this result as normal/abnormal . [facility] SouthVcjtelkXURSSFWIEV9027-83-43 14:00:00 Test Item Value Reference Range Interpretation Comments Basophils # (test code 0.0 See_Comment [Aut omated message] The = Basophils #) system which generated this result tra nsmitted reference range : <=0.2. The reference r caren was not used to int erpret this result as normal/abnormal . [facility] SouthTvjleunWTSSLHJRAO3329-23-01 14:00:00 Test Item Value Reference Range Interpretation Comments Large Plt (test code = Large Plt) Slight [facility] SouthCpddkqfHXWIUEXHHN8367-37-29 14:00:00 Test Item Value Reference Range Interpretation Comments Hgb (test code = Hgb) 13.3 12.0-16.0 [facility] SouthJpoqfanCZYPVAYUZK2344-55-94 14:00:00 Test Item Value Reference Range Interpretation Comments WBC (test code = WBC) 8.5 3.7-10.4 [facility] SouthNynijsuCNSBDHFBMB0031-69-53 14:00:00 Test Item Value Reference Range Interpretation Comments RBC (test code = RBC) 4.72 4.20-5.40 [facility] SouthRzcjtqoOAPXPLENAE4316-81-74 14:00:00 Test Item Value Reference Range Interpretation Comments MCHC (test code = MCHC) 32.7 32.0-36.0 [facility] SouthPqkfswhUULZQKRXCY4920-99-68 14:00:00 Test Item Value Reference Range Interpretation Comments MCH (test code = MCH) 28.2 pg 27.0-31.0 [facility] SouthLpsrbkfEHWAWUGWZL5295-77-51 14:00:00 Test Item Value Reference Range Interpretation Comments RDW (test code = RDW) 15.7 11.5-14.5 [facility] SouthUmoexmgZLBHWCNYGV0946-81-95 14:00:00 Test Item Value Reference Range Interpretation Comments MCV (test code = MCV) 86.5 80.0-98.0 [facility] SouthEtfvhlfLHYHYEHIZV6127-84-27 14:00:00 Test Item Value Reference Range Interpretation Comments Hct (test code = Hct) 40.8 36.0-48.0 [facility] SouthSxrffafBRHVQYSGPU9321-17-87 14:00:00 Test Item Value Reference Range Interpretation Comments MPV (test code = MPV) 9.6 7.4-10.4 [facility] SouthXmvqnqnFXNNKSIHXJ4541-21-91 14:00:00 Test Item Value Reference Range Interpretation Comments Platelet (test code = Platelet) 268 560-444 [facility] SouthBpnyvuyXLTRKRJXSG9209-69-37 14:00:00 Test Item Value Reference Range Interpretation Comments PT (test code = PT) 13.5 s 12.0-14.7 [place] 365156-12-27 14:00:00 Test Item Value Reference Range Interpretation Comments INR (test code = INR) 1.01 0.85-1.17 [facility] SouthHrysgesHWZFUWRTBT1581-27-64 14:00:00 Test Item Value Reference Range Interpretation Comments PTT (test code = PTT) 33.2 s 22.9-35.8 [facility] SouthSvipqtlWNMOCQRKVC6405-41-03 14:00:00 Test Item Value Reference Range Interpretation Comments Platelet (test code = Platelet) 276 857-763 [facility] SouthZgpikugNEYCZLUVZW1211-49-48 14:00:00 Test Item Value Reference Range Interpretation Comments Eosinophils # (test code 0.2 See_Comment [A utomated message] The = Eosinophils #) system whic h generated this result tra nsmitted reference range : <=0.5. The reference r caren was not used to int erpret this result as normal/abnormal . [facility] SouthVoijpxrPJEEKWIFBM0773-51-98 14:00:00 Test Item Value Reference Range Interpretation Comments Monocytes (test code = Monocytes) 5.5 2.0-12.0 [facility] SouthWujqugvMSQXLRPAFZ2969-49-23 14:00:00 Test Item Value Reference Range Interpretation Comments Segs (test code = Segs) 57.7 45.0-75.0 [facility] SouthUmokaapXDEFUDKGKH4772-26-62 14:00:00 Test Item Value Reference Range Interpretation Comments Lymphocytes (test code = Lymphocytes) 33.5 20.0-40.0 [facility] SouthIyblwnnPRYMXCHSXX9972-99-57 14:00:00 Test Item Value Reference Range Interpretation Comments Eosinophils (test code = 2.9 See_Comment [A utomated message] The Eosinophils) system which ge nerated this result tra nsmitted reference range : <=4.0. The reference r caren was not used to int erpret this result as normal/abnormal . [facility] SouthXpahcapVVNNNYGPPB5368-15-78 14:00:00 Test Item Value Reference Range Interpretation Comments Segs-Bands # (test code = Segs-Bands #) 4.9 1.5-8.1 [facility] SouthSbicspwIHIMKOIUDS0785-01-08 14:00:00 Test Item Value Reference Range Interpretation Comments Lymphocytes # (test code = Lymphocytes 2.9 1.0-5.5 #) [facility] SouthHixrvchGOIXSUWKYQ8243-62-41 14:00:00 Test Item Value Reference Range Interpretation Comments Monocytes # (test code 0.5 See_Comment [Aut omated message] The = Monocytes #) system which generated this result tra nsmitted reference range : <=0.8. The reference r caren was not used to int erpret this result as normal/abnormal . [facility] SouthDwfbnzbELTXAVDYOH7757-14-39 14:00:00 Test Item Value Reference Range Interpretation Comments Basophils (test code = 0.4 See_Comment [Aut omated message] The Basophils) system which ge nerated this result tra nsmitted reference range : <=1.0. The reference r caren was not used to int erpret this result as normal/abnormal . [facility] SouthMptzuxgCCTBWBEODL7606-67-26 14:00:00 Test Item Value Reference Range Interpretation Comments Basophils # (test code 0.0 See_Comment [Aut omated message] The = Basophils #) system which generated this result tra nsmitted reference range : <=0.2. The reference r caren was not used to int erpret this result as normal/abnormal . [facility] SouthKflswurALJUXFQJYC1219-87-77 14:00:00 Test Item Value Reference Range Interpretation Comments Large Plt (test code = Large Plt) Slight [facility] SouthZhdsnbtVFFKSMKWPS5363-18-63 14:00:00 Test Item Value Reference Range Interpretation Comments Hgb (test code = Hgb) 13.3 12.0-16.0 [facility] SouthQylueqmKGYTKEGBHI5114-29-78 14:00:00 Test Item Value Reference Range Interpretation Comments WBC (test code = WBC) 8.5 3.7-10.4 [facility] SouthHtgblbkWSVHOMSSXT4323-66-81 14:00:00 Test Item Value Reference Range Interpretation Comments RBC (test code = RBC) 4.72 4.20-5.40 [facility] SouthRbewrvmDMGRZJQUZG3664-91-95 14:00:00 Test Item Value Reference Range Interpretation Comments MCHC (test code = MCHC) 32.7 32.0-36.0 [facility] SouthVwdipknIPSMFWUFOM3438-63-58 14:00:00 Test Item Value Reference Range Interpretation Comments MCH (test code = MCH) 28.2 pg 27.0-31.0 [facility] SouthTamazuhLNRRORUQYZ1946-02-72 14:00:00 Test Item Value Reference Range Interpretation Comments RDW (test code = RDW) 15.7 11.5-14.5 [facility] SouthEhpwiitZMQYSMYDBY5481-96-33 14:00:00 Test Item Value Reference Range Interpretation Comments MCV (test code = MCV) 86.5 80.0-98.0 [facility] SouthFzddwaaNOPKBRKLUY7248-97-89 14:00:00 Test Item Value Reference Range Interpretation Comments Hct (test code = Hct) 40.8 36.0-48.0 [facility] SouthHtochewPVZQIWWFHW4334-68-74 14:00:00 Test Item Value Reference Range Interpretation Comments MPV (test code = MPV) 9.6 7.4-10.4 [facility] SouthCyirfxxJKXEWIOBVL6106-72-67 14:00:00 Test Item Value Reference Range Interpretation Comments Platelet (test code = Platelet) 131 700-955 [facility] SouthLbbuhojJFHZRHLFXZ7973-70-51 14:00:00 Test Item Value Reference Range Interpretation Comments PT (test code = PT) 13.5 s 12.0-14.7 [facility] SouthZocaxxbNUFTHQGFBK9077-87-44 14:00:00 Test Item Value Reference Range Interpretation Comments INR (test code = INR) 1.01 0.85-1.17 [facility] SouthFaibmyuRPTUGDXDKK4573-33-69 14:00:00 Test Item Value Reference Range Interpretation Comments PTT (test code = PTT) 33.2 s 22.9-35.8 [facility] SouthRdpnikdGZFSFSUKVU7239-73-85 14:00:00 Test Item Value Reference Range Interpretation Comments Platelet (test code = Platelet) 276 022-124 [facility] SouthTcgtonsNWHGGAFQXF0545-02-89 17:44:00 Test Item Value Reference Range Interpretation Comments MCH (test code = MCH) 28.2 pg 27.0-31.0 [facility] SouthUecapzbYRDTFQDGYP2825-28-61 17:44:00 Test Item Value Reference Range Interpretation Comments RDW (test code = RDW) 15.2 11.5-14.5 [facility] SouthGulpxptPJTVCTKSES7936-90-78 17:44:00 Test Item Value Reference Range Interpretation Comments Hgb (test code = Hgb) 12.6 12.0-16.0 [facility] SouthQtnpvfuDRJQYYUIND3670-23-60 17:44:00 Test Item Value Reference Range Interpretation Comments Hct (test code = Hct) 38.0 36.0-48.0 [facility] SouthRbwcfzzTAQWVDUSCZ2916-73-86 17:44:00 Test Item Value Reference Range Interpretation Comments MCV (test code = MCV) 85.0 80.0-98.0 [facility] SouthSygghbaOSVOHZGFRW3250-23-18 17:44:00 Test Item Value Reference Range Interpretation Comments WBC (test code = WBC) 8.8 3.7-10.4 [facility] SouthBukyxngRPSCEAMNDT9829-64-74 17:44:00 Test Item Value Reference Range Interpretation Comments RBC (test code = RBC) 4.47 4.20-5.40 [facility] SouthAhptxrwCZEVPLPVCS0645-70-63 17:44:00 Test Item Value Reference Range Interpretation Comments Basophils # (test code 0.1 See_Comment [Aut omated message] The = Basophils #) system which generated this result tra nsmitted reference range : <=0.2. The reference r caren was not used to int erpret this result as normal/abnormal . [facility] SouthSwplebzXVLBRNATLU8105-34-68 17:44:00 Test Item Value Reference Range Interpretation Comments Eosinophils # (test code 0.1 See_Comment [A utomated message] The = Eosinophils #) system whic h generated this result tra nsmitted reference range : <=0.5. The reference r caren was not used to int erpret this result as normal/abnormal . [facility] SouthKnkhnsyYNNPCEIGHB4996-56-74 17:44:00 Test Item Value Reference Range Interpretation Comments Eosinophils (test code = 1.3 See_Comment [A utomated message] The Eosinophils) system which ge nerated this result tra nsmitted reference range : <=4.0. The reference r caren was not used to int erpret this result as normal/abnormal . [place] 365156-11-21 17:44:00 Test Item Value Reference Range Interpretation Comments Monocytes (test code = Monocytes) 6.7 2.0-12.0 [facility] SouthIghnircEWJNWEICAS6937-10-12 17:44:00 Test Item Value Reference Range Interpretation Comments Lymphocytes # (test code = Lymphocytes 2.9 1.0-5.5 #) [facility] SouthQrmakgsRJLAEKPTFU3881-68-89 17:44:00 Test Item Value Reference Range Interpretation Comments Monocytes # (test code 0.6 See_Comment [Aut omated message] The = Monocytes #) system which generated this result tra nsmitted reference range : <=0.8. The reference r caren was not used to int erpret this result as normal/abnormal . [facility] SouthSdnfkdmVKPTTCYUSD8529-67-56 17:44:00 Test Item Value Reference Range Interpretation Comments Lymphocytes (test code = Lymphocytes) 33.2 20.0-40.0 [facility] SouthCilcajwAXIGXEBEMO0747-76-25 17:44:00 Test Item Value Reference Range Interpretation Comments Segs-Bands # (test code = Segs-Bands #) 5.1 1.5-8.1 [facility] SouthMfhdalnPYYBSZMIAD2629-03-47 17:44:00 Test Item Value Reference Range Interpretation Comments Basophils (test code = 0.6 See_Comment [Aut omated message] The Basophils) system which ge nerated this result tra nsmitted reference range : <=1.0. The reference r caren was not used to int erpret this result as normal/abnormal . [facility] SouthVbyokhvDDTCUVYFBU5356-09-87 17:44:00 Test Item Value Reference Range Interpretation Comments Segs (test code = Segs) 58.2 45.0-75.0 [facility]2016-11-21 17:44:00 Test Item Value Reference Range Interpretation Comments eGFR (test code = eGFR) 97 [facility]2016-11-21 17:44:00 Test Item Value Reference Range Interpretation Comments Sodium Lvl (test code = Sodium Lvl) 137 135-145 [facility]2016-11-21 17:44:00 Test Item Value Reference Range Interpretation Comments BUN (test code = BUN) 16 7-22 [facility]2016-11-21 17:44:00 Test Item Value Reference Range Interpretation Comments CO2 (test code = CO2) 27 24-32 [facility]2016-11-21 17:44:00 Test Item Value Reference Range Interpretation Comments Creatinine Lvl (test code = Creatinine 0.60 0.50-1.40 Lvl) [facility]2016-11-21 17:44:00 Test Item Value Reference Range Interpretation Comments Glucose Lvl (test code = Glucose Lvl) 97 70-99 [facility]2016-11-21 17:44:00 Test Item Value Reference Range Interpretation Comments Potassium Lvl (test code = Potassium 4.0 3.5-5.1 Lvl) [facility]2016-11-21 17:44:00 Test Item Value Reference Range Interpretation Comments Calcium Lvl (test code = Calcium Lvl) 9.0 8.5-10.5 [facility]2016-11-21 17:44:00 Test Item Value Reference Range Interpretation Comments Chloride Lvl (test code = Chloride Lvl) 101 95-109 [facility]2016-11-21 17:44:00 Test Item Value Reference Range Interpretation Comments AGAP (test code = AGAP) 13.0 10.0-20.0 [facility] SouthUwhwthkCLKYWXHZVU4958-20-28 17:44:00 Test Item Value Reference Range Interpretation Comments MPV (test code = MPV) 8.6 7.4-10.4 [facility] SouthLkszkunGRMWKXJYLW1757-77-81 17:44:00 Test Item Value Reference Range Interpretation Comments Platelet (test code = Platelet) 323 133-450 [facility] SouthJcusatbBJVKGBAWYD0579-69-93 17:44:00 Test Item Value Reference Range Interpretation Comments MCHC (test code = MCHC) 33.2 32.0-36.0 [facility]2016-11-21 17:44:00 Test Item Value Reference Range Interpretation Comments eGFR (test code = eGFR) 97 [facility]2016-11-21 17:44:00 Test Item Value Reference Range Interpretation Comments Sodium Lvl (test code = Sodium Lvl) 137 135-145 [facility]2016-11-21 17:44:00 Test Item Value Reference Range Interpretation Comments BUN (test code = BUN) 16 7-22 [facility]2016-11-21 17:44:00 Test Item Value Reference Range Interpretation Comments CO2 (test code = CO2) 27 24-32 [facility]2016-11-21 17:44:00 Test Item Value Reference Range Interpretation Comments Creatinine Lvl (test code = Creatinine 0.60 0.50-1.40 Lvl) [facility]2016-11-21 17:44:00 Test Item Value Reference Range Interpretation Comments Glucose Lvl (test code = Glucose Lvl) 97 70-99 [facility]2016-11-21 17:44:00 Test Item Value Reference Range Interpretation Comments Potassium Lvl (test code = Potassium 4.0 3.5-5.1 Lvl) [facility]2016-11-21 17:44:00 Test Item Value Reference Range Interpretation Comments Calcium Lvl (test code = Calcium Lvl) 9.0 8.5-10.5 [facility]2016-11-21 17:44:00 Test Item Value Reference Range Interpretation Comments Chloride Lvl (test code = Chloride Lvl) 101 95-109 [facility]2016-11-21 17:44:00 Test Item Value Reference Range Interpretation Comments AGAP (test code = AGAP) 13.0 10.0-20.0 [facility] SouthVefiwwaFSKSJWTCUF9536-69-41 17:44:00 Test Item Value Reference Range Interpretation Comments MPV (test code = MPV) 8.6 7.4-10.4 [facility] SouthSjrplbtIJIRHEAWZZ7581-83-11 17:44:00 Test Item Value Reference Range Interpretation Comments Platelet (test code = Platelet) 323 133-450 [facility] Sou[id number] 17:44:00 Test Item Value Reference Range Interpretation Comments MCHC (test code = MCHC) 33.2 32.0-36.0 [facility] SouthOikupvfNUMSPEZOSH4782-67-58 17:44:00 Test Item Value Reference Range Interpretation Comments MCH (test code = MCH) 28.2 pg 27.0-31.0 [facility] SouthBqjzcpqPFBVTEWHUY3595-33-68 17:44:00 Test Item Value Reference Range Interpretation Comments RDW (test code = RDW) 15.2 11.5-14.5 [facility] SouthBhpnqfpODSYQLAYHE7726-11-17 17:44:00 Test Item Value Reference Range Interpretation Comments Hgb (test code = Hgb) 12.6 12.0-16.0 [facility] SouthInibhugDSDGTNJSQQ2345-88-72 17:44:00 Test Item Value Reference Range Interpretation Comments Hct (test code = Hct) 38.0 36.0-48.0 [facility] SouthYeugzfgSWFYHPHEVE2245-42-84 17:44:00 Test Item Value Reference Range Interpretation Comments MCV (test code = MCV) 85.0 80.0-98.0 [facility] SouthOqncmliIXFSAEVLTG8311-14-02 17:44:00 Test Item Value Reference Range Interpretation Comments WBC (test code = WBC) 8.8 3.7-10.4 [facility] SouthZzksrpxYRDIRKRQIG7658-27-47 17:44:00 Test Item Value Reference Range Interpretation Comments RBC (test code = RBC) 4.47 4.20-5.40 [facility] SouthVjuaatqIXKYBJOXPN9507-95-72 17:44:00 Test Item Value Reference Range Interpretation Comments Basophils # (test code 0.1 See_Comment [Aut omated message] The = Basophils #) system which generated this result tra nsmitted reference range : <=0.2. The reference r caren was not used to int erpret this result as normal/abnormal . [facility] SouthHrpfuomTYYTHBTMTE9257-31-32 17:44:00 Test Item Value Reference Range Interpretation Comments Eosinophils # (test code 0.1 See_Comment [A utomated message] The = Eosinophils #) system whic h generated this result tra nsmitted reference range : <=0.5. The reference r caren was not used to int erpret this result as normal/abnormal . [facility] SouthBswzvjuFDHYLFJJUI4790-01-85 17:44:00 Test Item Value Reference Range Interpretation Comments Eosinophils (test code = 1.3 See_Comment [A utomated message] The Eosinophils) system which ge nerated this result tra nsmitted reference range : <=4.0. The reference r caren was not used to int erpret this result as normal/abnormal . [facility] SouthWndhlocLLSFOTYYFJ0041-64-56 17:44:00 Test Item Value Reference Range Interpretation Comments Monocytes (test code = Monocytes) 6.7 2.0-12.0 [facility] SouthXoghbfkPKWAJISBTN7811-12-37 17:44:00 Test Item Value Reference Range Interpretation Comments Lymphocytes # (test code = Lymphocytes 2.9 1.0-5.5 #) [facility] SouthXuxkqnvYHDLYHEEGR2023-21-67 17:44:00 Test Item Value Reference Range Interpretation Comments Monocytes # (test code 0.6 See_Comment [Aut omated message] The = Monocytes #) system which generated this result tra nsmitted reference range : <=0.8. The reference r caren was not used to int erpret this result as normal/abnormal . [facility] SouthDenyynlMUGGJLPLKU5754-77-15 17:44:00 Test Item Value Reference Range Interpretation Comments Lymphocytes (test code = Lymphocytes) 33.2 20.0-40.0 [facility] SouthPmniwrxDNBUZUXRMR7897-19-40 17:44:00 Test Item Value Reference Range Interpretation Comments Segs-Bands # (test code = Segs-Bands #) 5.1 1.5-8.1 [facility] SouthJtiutkpKCTHQZFIRV7184-72-88 17:44:00 Test Item Value Reference Range Interpretation Comments Basophils (test code = 0.6 See_Comment [Aut omated message] The Basophils) system which ge nerated this result tra nsmitted reference range : <=1.0. The reference r caren was not used to int erpret this result as normal/abnormal . [facility] SouthHxmbdjbNAXSYHUKAG3766-99-14 17:44:00 Test Item Value Reference Range Interpretation Comments Segs (test code = Segs) 58.2 45.0-75.0 [facility]2016-11-21 17:44:00 Test Item Value Reference Range Interpretation Comments eGFR (test code = eGFR) 97 [facility]2016-11-21 17:44:00 Test Item Value Reference Range Interpretation Comments Sodium Lvl (test code = Sodium Lvl) 137 135-145 [facility]2016-11-21 17:44:00 Test Item Value Reference Range Interpretation Comments BUN (test code = BUN) 16 7-22 [facility]2016-11-21 17:44:00 Test Item Value Reference Range Interpretation Comments CO2 (test code = CO2) 27 24-32 [facility]2016-11-21 17:44:00 Test Item Value Reference Range Interpretation Comments Creatinine Lvl (test code = Creatinine 0.60 0.50-1.40 Lvl) [facility]2016-11-21 17:44:00 Test Item Value Reference Range Interpretation Comments Glucose Lvl (test code = Glucose Lvl) 97 70-99 [facility]2016-11-21 17:44:00 Test Item Value Reference Range Interpretation Comments Potassium Lvl (test code = Potassium 4.0 3.5-5.1 Lvl) [facility]2016-11-21 17:44:00 Test Item Value Reference Range Interpretation Comments Calcium Lvl (test code = Calcium Lvl) 9.0 8.5-10.5 [facility]2016-11-21 17:44:00 Test Item Value Reference Range Interpretation Comments Chloride Lvl (test code = Chloride Lvl) 101 95-109 [facility]2016-11-21 17:44:00 Test Item Value Reference Range Interpretation Comments AGAP (test code = AGAP) 13.0 10.0-20.0 [facility] SouthOdknlyuRTJFZSYTCI0969-43-65 17:44:00 Test Item Value Reference Range Interpretation Comments MPV (test code = MPV) 8.6 7.4-10.4 [facility] SouthQcjlrlcCNNUNSCWSB9302-08-86 17:44:00 Test Item Value Reference Range Interpretation Comments Platelet (test code = Platelet) 323 133-450 [facility] SouthRirmgdoNUBNVDIJLN3285-19-04 17:44:00 Test Item Value Reference Range Interpretation Comments MCHC (test code = MCHC) 33.2 32.0-36.0 [facility] SouthRivxnzkPFUVFEBROH7784-75-72 17:44:00 Test Item Value Reference Range Interpretation Comments MCH (test code = MCH) 28.2 pg 27.0-31.0 [facility] SouthOurqmfcTPCPIBAAVZ3571-41-83 17:44:00 Test Item Value Reference Range Interpretation Comments RDW (test code = RDW) 15.2 11.5-14.5 [facility] SouthFzhfsroOPAKBDJPSK6238-29-17 17:44:00 Test Item Value Reference Range Interpretation Comments Hgb (test code = Hgb) 12.6 12.0-16.0 [facility] SouthWhqvjffPMKKPTBZMQ2121-04-59 17:44:00 Test Item Value Reference Range Interpretation Comments Hct (test code = Hct) 38.0 36.0-48.0 [facility] SouthAlkechsCJNENXHPMY5599-18-84 17:44:00 Test Item Value Reference Range Interpretation Comments MCV (test code = MCV) 85.0 80.0-98.0 [facility] SouthXhsqqboWPMIKLCXAA5587-95-06 17:44:00 Test Item Value Reference Range Interpretation Comments WBC (test code = WBC) 8.8 3.7-10.4 [facility] SouthQmfmcbiUZPPPUYDMP8695-61-34 17:44:00 Test Item Value Reference Range Interpretation Comments RBC (test code = RBC) 4.47 4.20-5.40 [facility] SouthC[id number] 17:44:00 Test Item Value Reference Range Interpretation Comments Basophils # (test code 0.1 See_Comment [Aut omated message] The = Basophils #) system which generated this result tra nsmitted reference range : <=0.2. The reference r caren was not used to int erpret this result as normal/abnormal . [facility] SouthRzbrtxgCRIJUUVESV4814-92-60 17:44:00 Test Item Value Reference Range Interpretation Comments Eosinophils # (test code 0.1 See_Comment [A utomated message] The = Eosinophils #) system whic h generated this result tra nsmitted reference range : <=0.5. The reference r caren was not used to int erpret this result as normal/abnormal . [facility] SouthXjnwtklUYEMUMSFHP0862-27-82 17:44:00 Test Item Value Reference Range Interpretation Comments Eosinophils (test code = 1.3 See_Comment [A utomated message] The Eosinophils) system which ge nerated this result tra nsmitted reference range : <=4.0. The reference r caren was not used to int erpret this result as normal/abnormal . [facility] SouthYnpcizsGCKRHXSFBW3758-43-36 17:44:00 Test Item Value Reference Range Interpretation Comments Monocytes (test code = Monocytes) 6.7 2.0-12.0 [facility] SouthCvrotdaHRMERAMJBX8012-68-83 17:44:00 Test Item Value Reference Range Interpretation Comments Lymphocytes # (test code = Lymphocytes 2.9 1.0-5.5 #) [facility] SouthY[id number] 17:44:00 Test Item Value Reference Range Interpretation Comments Monocytes # (test code 0.6 See_Comment [Aut omated message] The = Monocytes #) system which generated this result tra nsmitted reference range : <=0.8. The reference r caren was not used to int erpret this result as normal/abnormal . [facility] SouthIgdexocNLISPSFPBC8300-77-40 17:44:00 Test Item Value Reference Range Interpretation Comments Lymphocytes (test code = Lymphocytes) 33.2 20.0-40.0 [facility] SouthIlitzjyGHIJESYLSU0655-77-66 17:44:00 Test Item Value Reference Range Interpretation Comments Segs-Bands # (test code = Segs-Bands #) 5.1 1.5-8.1 [facility] SouthIvsuirnTRYEPGZHOE3291-56-81 17:44:00 Test Item Value Reference Range Interpretation Comments Basophils (test code = 0.6 See_Comment [Aut omated message] The Basophils) system which ge nerated this result tra nsmitted reference range : <=1.0. The reference r caren was not used to int erpret this result as normal/abnormal . [facility] SouthLaioxfbYHKWDDPXHJ3042-89-53 17:44:00 Test Item Value Reference Range Interpretation Comments Segs (test code = Segs) 58.2 45.0-75.0 [facility]
--- NOTE | 2022-11-05 13:31 | RAD REPORT ---
EXAM DESCRIPTION: US - Extremity Venous Uni Ltd - 11/05/2022 1:25 pm CLINICAL HISTORY: swelling COMPARISON: None. TECHNIQUE: Real-time sonographic evaluation of the left lower extremity deep venous system was perfo rmed. FINDINGS: Normal compressibility, flow augmentation, phasic flow and spontaneous flow is identified in the left lower extremity deep venous system. No intraluminal filling defects seen. IMPRESSION: No DVT in the left lower extremity.
--- NOTE | 2022-11-05 14:01 | ER ---
Nurse's Notes [facility] Name: Gregoria Vela Age: 72 yrs Sex: Female : 1950 Arrival Date: 11/05/2022 Time: 12:08 Bed 11 Private MD: Diagnosis: Contusion of left lower leg Presentation: 11/05 12:23 Chief complaint: Patient states: Bump to back of L leg noticed today. Started to bruise ll1 after rubbing it. Coronavirus screen: Client denies travel out of the [place] in the last 14 days. At this time, the client does not indicate any symptoms associated with coronavirus-19. Ebola Screen: Patient denies travel to an Ebola-affected area in the 21 days before illness onset. Initial Sepsis Screen: Does the patient meet any 2 criteria? No. Patient's initial sepsis screen is negative. Does the patient have a suspected source of infection? No. Patient's initial sepsis screen is negative. Risk Assessment: Do you want to hurt yourself or someone else? Patient reports no desire to harm self or others. Onset of symptoms was November 05, 2022. 12:23 Method Of Arrival: Ambulatory ll1 12:23 Acuity: ERIC 4 ll1 Historical: - Allergies: 12:24 Latex, Natural Rubber; ll1 - PMHx: 12:24 Hyperlipidemia; LYMPHOMA; plate in head; cardiac stent; Hypertension; CAD; skin cancer; ll1 - PSHx: 12:24 plate in head; ll1 - Immunization history:: Adult Immunizations up to date. - Social history:: Smoking status: Patient denies any tobacco usage or history of. Vital Signs: 12:23 BP 152 / 71; Pulse 87; Resp 16; Pulse Ox 97% ; Pain 10/10; ll1 14:16 BP 151 / 66; Pulse 72; Resp 17; Pulse Ox 98% ; jl7 12:23 Pain Scale: Adult ll1 ED Course: 12:12 Patient arrived in ED. mr 12:17 Isamar Nieves FNP is PHCP. jh7 12:17 Cameron Luke MD is Attending Physician. jh7 12:24 Triage completed. ll1 12:25 Arm band placed on Patient placed in an exam room, on a stretcher. ll1 13:27 US Extremity Venous Unilateral Ltd In Process Unspecified. EDND 14:16 Brianna Shea, RN is Primary Nurse. jl7 14:16 Patient has correct armband on for positive identification. jl7 14:16 Patient did not have IV access during this emergency room visit. jl7 Administered Medications: No medications were administered Medication: 14:16 VIS not applicable for this client. jl7 Outcome: 14:00 Discharge ordered by . 7 14:16 Discharged to home ambulatory. jl7 14:16 Condition: stable 14:16 Discharge instructions given to patient, Instructed on discharge instructions, follow up and referral plans. Demonstrated understanding of instructions, follow-up care. 14:17 Patient left the ED. jl7 Signatures: Dispatcher [employer] [facility] Flora Hernández mr Brianna Shea, RN RN jl7 Rafi Copeland, RN RN ll1 Isamar Nieves, GUIDANCE COUNSELOR GUIDANCE COUNSELOR 7
--- NOTE | 2022-11-05 14:01 | EDPHYS ---
Physician Documentation [facility] Name: Gregoria Vela Age: 72 yrs Sex: Female : 1950 Arrival Date: 11/05/2022 Time: 12:08 Bed 11 Private MD: ED Physician Cameron Luke HPI: 11/05 12:25 This 72 yrs old Female presents to ER via Ambulatory with complaints of Bump on leg. jh7 12:25 Onset: The symptoms/episode began/occurred acutely. Associated signs and symptoms: jh7 Pertinent negatives: abdominal pain, chest pain, fever, shortness of breath, vomiting. 72-year-old female presents for swelling to the distal calf occurring this morning. Patient states she noted the swelling and after pushing on it she noticed it began to bruise. The area is tender to palpation. Denies fever or any other symptoms.. Historical: - Allergies: 12:24 Latex, Natural Rubber; ll1 - PMHx: 12:24 Hyperlipidemia; LYMPHOMA; plate in head; cardiac stent; Hypertension; CAD; skin cancer; ll1 - PSHx: 12:24 plate in head; ll1 - Immunization history:: Adult Immunizations up to date. - Social history:: Smoking status: Patient denies any tobacco usage or history of. ROS: 12:25 Constitutional: Negative for fever, chills, and weight loss, Eyes: Negative for injury, jh7 pain, redness, and discharge, Neck: Negative for injury, pain, and swelling, Cardiovascular: Negative for chest pain, palpitations, and edema, Respiratory: Negative for shortness of breath, cough, wheezing, and pleuritic chest pain, Skin: Negative for injury, rash, and discoloration, Neuro: Negative for headache, weakness, numbness, tingling, and seizure. 12:25 MS/extremity: Positive for pain, swelling, tenderness, of the Left distal calf. 12:25 All other systems are negative. Exam: 12:25 Constitutional: This is a well developed, well nourished patient who is awake, alert, jh7 and in no acute distress. Head/Face: Normocephalic, atraumatic. Neck: Trachea midline, no thyromegaly or masses palpated, and no cervical lymphadenopathy. Supple, full range of motion without nuchal rigidity, or vertebral point tenderness. No Meningismus. Cardiovascular: Regular rate and rhythm with a normal S1 and S2. No gallops, murmurs, or rubs. Normal PMI, no JVD. No pulse deficits. Respiratory: Lungs have equal breath sounds bilaterally, clear to auscultation and percussion. No rales, rhonchi or wheezes noted. No increased work of breathing, no retractions or nasal flaring. Skin: Warm, dry with normal turgor. Normal color with no rashes, no lesions, and no evidence of cellulitis. Neuro: Awake and alert, GCS 15, oriented to person, place, time, and situation. Motor strength 5/5 in all extremities. Sensory grossly intact. Cerebellar exam normal. Normal gait. 12:25 Musculoskeletal/extremity: ROM: intact in all extremities, Circulation is intact in all extremities. Pulses: are normal with no appreciated deficits, Sensation intact. Palm sized area of swelling and bruising noted to the distal calf. No erythema noted.. Vital Signs: 12:23 BP 152 / 71; Pulse 87; Resp 16; Pulse Ox 97% ; Pain 10/10; ll1 14:16 BP 151 / 66; Pulse 72; Resp 17; Pulse Ox 98% ; jl7 12:23 Pain Scale: Adult ll1 MDM: 12:17 Patient medically screened. [facility] 14:05 Differential diagnosis: Contusion, sprain, DVT. Data reviewed: vital signs, nurses [facility] notes, radiologic studies, ultrasound. Care significantly affected by the following chronic conditions: Hypertension. Counseling: I had a detailed discussion with the patient and/or guardian regarding: the historical points, exam findings, and any diagnostic results supporting the discharge/admit diagnosis, to return to the emergency department if symptoms worsen or persist or if there are any questions or concerns that arise at home. 11/05 12:28 Order name: US Extremity Venous Unilateral Ltd; Complete Time: 14:00 [facility] Administered Medications: No medications were administered Disposition Summary: 11/05/22 14:00 Discharge Ordered Location: Home [facility] Problem: new [facility] Symptoms: have improved [facility] Condition: Stable [facility] Diagnosis - Contusion of left lower leg [facility] Followup: [facility] - With: Private Physician - When: 2 - 3 days - Reason: Recheck today's complaints Discharge Instructions: - Discharge Summary Sheet [facility] - Contusion [facility] Forms: - Medication Reconciliation Form jh7 - Thank You Letter jh7 Signatures: Dispatcher [employer] Rafi Sosa RN RN ll1 Iasmar Nieves FNP FNP jh7
[2022-11-05 14:37] VITALS: BP 151/66; O2SAT 98
== END 2022-11-05 14:17 | disposition home or self-care (01) ==
LOC: ER 12:08
DX: S80.12XA Contusion of left lower leg, initial encounter (principal); I10 Essential (primary) hypertension; Z91.040 Latex allergy status; Z91.048 Other nonmedicinal substance allergy status; Z95.818 Presence of other cardiac implants and grafts
CPT/HCPCS: 93971; 99283

== ENCOUNTER → 2023-08-19 | Emergency (ER) | payer OTHER ==
[~2023-08-19] MED LIST: HYDROCODONE/APAP 5/325 MG TAB ONE; MORPHINE 4 MG/ML SYR ONE
--- OUTSIDE RECORDS SUMMARY | 2023-08-19 12:00 | XMS REPORT | Clinical Summary ---
Author Name Unknown Organization [facility] Address [address] [place] [address] Care Team Providers Care Commercial Estimator Name Role Phone Elpidio Burr Unavailable Elpidio Burr Unavailable Devon Godwin MD Unavailable [phone] Yanick Shoemaker MD Unavailable [phone] Lito Kramer MD Primary Care Provider Unav ailable Nastoupil, Mara Motley MD Unavailable [phone] Marisol Box MD Unavailable [phone] Myron Shoemaker MD Unavailable Unavailable Allergies Active Allergy Reactions Criticality Noted Date Comments Acetaminophen Rash Low 06/15/2016 Medications Medication Sig Dispensed Refills Start Date End Date Status acyclovir (ZOVIRAX) 200 mg capsule Take 2 capsules by mouth as needed. 0 Active acyclovir (ZOVIRAX) 5% cream Apply 1 application topically to affected area(s) as needed. 0 Active fenofibrate nanocrystallized (TRICOR) 145 mg tablet Take 1 tablet by mouth daily. 0 Active FLUoxetine (PROzac) 20 mg capsule Take 1 capsule by mouth daily. 0 Active isosorbide mononitrate (IMDUR) 30 mg 24 hr tablet Take 1 tablet by mouth daily. 0 Active lisinopril-hydrochloro thiazide (PRINZIDE,ZESTORETIC) 20-12.5 mg per tablet Take 1 tablet by mouth twice daily. 0 Active estrogens, conjugated, (PREMARIN) 1.25 mg tablet Take 1 tablet by mouth daily. 0 Active traMADol (ULTRAM) 50 mg tablet Take 1 tablet by mouth every 6 (six) hours as needed. 0 Active carisoprodol (SOMA) 350 mg tablet Take 1 tablet by mouth as needed. 0 Active calcium carbonate (TUMS) 1000 mg (400 mg elemental calcium) chewable tablet Chew 2 tablets as needed. 0 Active diethylpropion 25 mg tab TK 1 T PO TID BEFORE MEALS 0 03/24/2016 Active hydrOXYzine HCl (ATARAX) 25 mg tabletIndications:Othe r pruritus,Dermatographi c urticaria TAKE 1 OR 2 TABLETS BY MOUTH EVERY NIGHT AT BEDTIME NEEDED FOR ITCHING. 60 tablet 5 01/01/2017 Active Additional Information Patient taking differently: Patient states that she take 50 mg in the morning and 50 mg in the evening, Reason: Other, Reported on 10/04/2019 HYDROXYZINE PAMOATE ORAL Take 100 mg by mouth daily. Patient states that she takes this medication in the middle of the day. 0 Active aspirin 81 mg EC tablet Take 81 mg by mouth daily. 0 Active amLODIPine (NORVASC) 5 mg tablet Take 5 mg by mouth daily. 0 Active atorvastatin (LIPITOR) 40 mg tablet Take 40 mg by mouth at bedtime. 0 08/06/2019 Active fluocinolone 0.01 % oil Patient uses this 2-4 times a day 0 01/28/2019 Active clopidogrel (PLAVIX) 75 mg tablet Take 75 mg by mouth daily. 0 09/25/2019 Active LUMIGAN 0.01 % ophthalmic drops Administer 1 drop to both eyes. 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 Bilateral trochanteric bursitis 06/17/2016 Surgical History Surgery Date Site/Laterality Comments APPENDECTOMY COLONOSCOPY MASTECTOMY breast reconstructed after implant removal EXPLORATORY LAPAROTOMY BRAIN SURGERY HERNIA REPAIR BREAST LUMPECTOMY HYSTERECTOMY UPPER GASTROINTESTINAL ENDOSCOPY Medical History Medical History Date Comments Hypertension 2009 Hyperlipidemia 2009 Irregular heart beat 2010 Heart valve disorder 2009 Neuropathy 2015 arm, wrist, shou lder Chronic fatigue syndrome 2006 Nodule in breast several times benign, dense b reast Cyst of breast several times benign Mastitis reoccurring painful breast a yumi, rightone Mammoplasty Silicone breast implants 1974, but, removed in 2006 Chronic bronchitis 2005 - [address] marinelli cough in 2008 Hepatitis 1996 Hep A Gastric reflux take Prevacid an d Tums daily Diverticulitis recent on CT sca n Urinary tract infection take AZO for pain Endometriosis had total hyster ectomy 1985 Blood coagulation disorder thick blood Lupus erythematosus tested HELENE p ositive but not sure Gout in left foot in ball joint area Depressive disorder I cry easy Anxiety I worry alot Lymphedema not sure, have i tchy arms with lumps under the skin. 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 Arrhythmia Congestive heart failure pt stat es it's mild Gastroesophageal reflux disease Stented coronary artery 08/2019 Family History Medical History Relation Name Comments Diabetes Brother Hermelindo Hunt Sixto Hunt Coronary heart disease (CHD) Father Bennie Mcdowell Hypertension Father Bennie Mcdowell -Brain cancer Maternal Aunt 1 Marisel Wilson -Gastrointestinal (Esophagus , Liver, Bile Duct, Stomach, Pancreas, Colon, Rectum, Anus Maternal Aunt 2 Elana Yun -Leukemia Maternal Aunt 3 Barbara Griffin -Gynecology (Ovary, Endometr ial, Cervix, Vagina) Mother Yamini Ivy -Thoracic or Lung Mother Yamini Ivy Coronary heart disease (CHD) Mother Yamini Ivy Hypertension Mother Yamini Ivy -Genitourinary (Bladder, Kid steve, Prostate, Testicle) Sister 1 Bharti Lizarraga Stroke Sister 2 Rosa Hunt Relation Name Status Comments Brother Sixto Del Valle Father Bennie Mcdowell Maternal Aunt 1 Marisel Stephenss Maternal Aunt 2 Elana Yun Maternal Aunt 3 Barbara Griffin Mother Yamini Ivy Sister 1 Bharti Lizarraga Sister 2 Rosa Hunt Social History Tobacco Use Types Packs/Day Years Used Date Smoking Tobacco: Former Cigarettes 1 10 0 06/05/1968 - 06/05/1978 Smokeless Tobacco: Never Alcohol Use Standard Drinks/Week Comments No 0 (1 standard drink = 0.6 oz pur e alcohol) Sex and Gender Information Value Date Recorded Sex Assigned at Not on file Gender Identity Not on file Sexual Orientation Not on file Obstetrics History Para Term AB IAB SAB Ectopic Multiple Livin g Live Births 2 Plan of Treatment Health Maintenance Due Date Last Done Comments COVID-19 Vaccine (2022-2 4 season) 2023 06/04/2021, 08/05/2020, 07/08/2020 Influenza Vaccine 02/03/2023 03/26/2021, , 04/02/2013 Care Teams Commercial Estimator Relationship Specialty Start Date End Date Elpidio Burr PCP - External Referring 06/15/16 Elpidio Burr PCP - External Follow Up A 06/15/16 Devon Godwni MD [address] [phone] PCP - External Follow Up B Cardiology 06/15/16 Yanick Shoemaker MD [address] [phone] PCP - External Follow Up C General Surgery 06/15/16 Lito Kramer MD [address] [phone] PCP - General Lymphoma and Myeloma 08/14/20 Mara Chandler MD [address] [place] [address] Physician Lymphoma and Myeloma 06/15/16 Marisol Box MD [address] [place] [address] Consulting Physician Dermatology 06/24/16 Myron Shoemaker MD Consulting Physician Rheumatology 06/17/16
--- NOTE | 2023-08-19 13:41 | RAD REPORT ---
EXAM DESCRIPTION: CT - Spine Lumbar Wo Con - 08/19/2023 1:34 pm CLINICAL HISTORY: Radiculopathy. LOWER BACK PAIN COMPARISON: No comparisons TECHNIQUE: Axial noncontrast CT imaging of the lumbar spine was performed with coronal and sagittal re-formatted images. All CT scans are performed using dose optimization technique as appropriate and may include automated exposure control or mA/KV adjustment according to patient size. FINDINGS: No acute lumbar spine fracture seen. No aggressive marrow pattern or malalignment. Paraspinal tissues are normal in thickness. No paraspinal abscess or hematoma seen. Vacuum disc degeneration present at L1-2. Prominent disc protrusion is likely present L4-5 which marina g with facet and ligamentum flavum hypertrophy results in significant central canal stenosis. Mild nonspecific mesenteric edema seen in the central abdomen. Moderate aorto and iliac atheroscleros is. IMPRESSION: No acute lumbar spine finding seen. Suspected significant central canal stenosis at L4-5. Nonemergent MRI followup would be recommended.
--- NOTE | 2023-08-19 14:15 | ER ---
Nurse's Notes [facility] Name: Gregoria Vela Age: 73 yrs Sex: Female : 1950 Arrival Date: 08/19/2023 Time: 11:57 Bed 19 Private MD: Diagnosis: Low back pain;Muscle spasm Presentation: 08/18 12:37 Chief complaint: Patient states: "I bent over yesterday and I felt something snap in my aa5 back". Pt c/o lower back pain, reports hx of chronic back pain. 12:37 Coronavirus screen: At this time, the client does not indicate any symptoms associated aa5 with coronavirus-19. Ebola Screen: Patient denies travel to an Ebola-affected area in the 21 days before illness onset. Initial Sepsis Screen: Does the patient meet any 2 criteria? No. Patient's initial sepsis screen is negative. Does the patient have a suspected source of infection? No. Patient's initial sepsis screen is negative. Risk Assessment: Do you want to hurt yourself or someone else? Patient reports no desire to harm self or others. Onset of symptoms was August 2023. 12:37 Method Of Arrival: Wheelchair aa5 12:37 Acuity: ERIC 3 aa5 Historical: - Allergies: 12:47 ACETAMINOPHEN; aa5 12:47 Hydrocodone-Acetaminophen; aa5 12:47 Latex; aa5 - PMHx: 12:47 CAD; cardiac stent; Hyperlipidemia; Hypertension; LYMPHOMA; plate in head; skin cancer; aa5 Chronic back pain; - PSHx: 12:47 plate in head; aa5 - Immunization history:: Adult Immunizations unknown. - Social history:: Smoking status: Patient denies any tobacco usage or history of. Screenin:[address] [facility] ED Fall Risk Assessment (Adult) History of falling in the last 3 months, rs5 including since admission No falls in past 3 months (0 pts) Confusion or Disorientation No (0 pts) Intoxicated or Sedated No (0 pts) Impaired Gait No (0 pts) Mobility Assist Device Used No (0 pt) Altered Elimination No (0 pt) Score/Fall Risk Level 0 - 2 = Low Risk Oriented to surroundings, Maintained a safe environment. Abuse screen: Denies threats or abuse. Nutritional screening: No deficits noted. Tuberculosis screening: No symptoms or risk factors identified. Assessment: 12:40 General: Appears in no apparent distress. uncomfortable, Behavior is cooperative. Pain: rs5 Complains of pain in lower back Pain does not radiate. Pain currently is 8 out of 10 on a pain scale. Quality of pain is described as aching, Is continuous. Neuro: Level of Consciousness is awake, alert, obeys commands, Oriented to person, place, time, situation, Intact. Cardiovascular: Patient's skin is warm and dry. Rhythm is regular. Respiratory: Airway is patent Respiratory effort is even, unlabored, Respiratory pattern is regular, symmetrical. 12:40 GI: Abdomen is round non-distended, Abd is soft and non tender X 4 quads. : No signs rs5 and/or symptoms were reported regarding the genitourinary system. EENT: No signs and/or symptoms were reported regarding the EENT system. Derm: Skin is intact, Skin is pink, warm \\T\\ dry. Musculoskeletal: Range of motion: intact in all extremities. 13:57 Reassessment: Patient and/or family updated on plan of care and expected duration. Pain rs5 level reassessed. Patient is alert, oriented x 3, equal unlabored respirations, skin warm/dry/pink. Patient denies pain at this time. Patient states feeling better. Patient states symptoms have improved. Vital Signs: 12:37 BP 162 / 57; Pulse 78; Resp 20 S; Temp 97.8(TE); Pulse Ox 99% on R/A; Weight 81.65 kg aa5 (R); Height 5 ft. 1 in. ; 13:57 BP 155 / 59; Pulse 80; Resp 18; Pulse Ox 99% on R/A; rs5 12:37 Body Mass Index 34.01 (81.65 kg, 154.94 cm) aa5 ED Course: 11:59 Patient arrived in ED. mg5 12:05 Lyle Alvarez MD is Attending Physician. cp3 12:30 Patient has correct armband on for positive identification. Placed in gown. Bed in low rs5 position. Call light in reach. Side rails up X2. 12:37 Arm band placed on. aa5 12:41 Dante Wheatley, RN is Primary Nurse. rs5 12:49 Triage completed. aa5 13:35 CT Lumbar Spine Wo Con In Process Unspecified. EDMS 13:57 No provider procedures requiring assistance completed. rs5 14:17 Ga Portillo MD is Referral Physician. cp3 14:30 Patient did not have IV access during this emergency room visit. rs5 Administered Medications: 13:05 Drug: morphine IM 4 mg IM once Route: IM; Site: left deltoid; rs5 13:30 Follow up: Response: No adverse reaction; Pain is decreased rs5 14:15 Drug: HYDROcodone-acetaminophen PO 5 mg-325 mg 2 tabs PO once Route: PO; rs5 14:25 Follow up: Response: No adverse reaction rs5 Medication: 13:03 VIS not applicable for this client. rs5 Outcome: 14:14 Discharge ordered by MD. cp3 14:30 Discharged to home via wheelchair, with family, rs5 14:30 Condition: stable 14:30 Discharge instructions given to patient, family, Instructed on discharge instructions, follow up and referral plans. medication usage, Demonstrated understanding of instructions, follow-up care, medications, Prescriptions given X 2, 14:34 Patient left the ED. rs5 Signatures: Dispatcher [employer] Lyle David MD MD cp3 Lsia Bedoya, RN RN aa5 Dante Wheatley RN RN rs5 Felicitas Garcia mg5
--- NOTE | 2023-08-19 14:15 | EDPHYS ---
Physician Documentation [facility] Name: Gregoria Vela Age: 73 yrs Sex: Female : 1950 Arrival Date: 08/19/2023 Time: 11:57 Bed 19 Private MD: ED Physician Lyle Alvarez HPI: 08/18 13:48 This 73 yrs old Female presents to ER via Wheelchair with complaints of Back Pain. cp3 13:48 Patient is a 73-year-old female who was bending over and developed lower back pain. cp3 Patient endorsed that she started having a spasm of the lower back this morning with increasing pain and discomfort. No numbness and tingling. No change in motor strength or strength sensory or sensation.. Historical: - Allergies: 12:47 ACETAMINOPHEN; aa5 12:47 Hydrocodone-Acetaminophen; aa5 12:47 Latex; aa5 - PMHx: 12:47 CAD; cardiac stent; Hyperlipidemia; Hypertension; LYMPHOMA; plate in head; skin cancer; aa5 Chronic back pain; - PSHx: 12:47 plate in head; aa5 - Immunization history:: Adult Immunizations unknown. - Social history:: Smoking status: Patient denies any tobacco usage or history of. ROS: 13:48 Constitutional: Negative for fever, chills, and weight loss, Neck: Negative for injury, cp3 pain, and swelling, Cardiovascular: Negative for chest pain, palpitations, and edema, Respiratory: Negative for shortness of breath, cough, wheezing, and pleuritic chest pain, Abdomen/GI: Negative for abdominal pain, nausea, vomiting, diarrhea, and constipation, Back: Negative for injury and pain, : Negative for injury, bleeding, discharge, and swelling, Skin: Negative for injury, rash, and discoloration, Neuro: Negative for headache, weakness, numbness, tingling, and seizure, Psych: Negative for depression, anxiety, suicide ideation, homicidal ideation, and hallucinations, Allergy/Immunology: Negative for hives, rash, and allergies, Endocrine: Negative for neck swelling, polydipsia, polyuria, polyphagia, and marked weight changes, Hematologic/Lymphatic: Negative for swollen nodes, abnormal bleeding, and unusual bruising, 13:48 Back: Positive for pain at rest, pain with movement, Exam: 13:48 Back: pain, that is moderate, vertebral tenderness, is appreciated at lumbar spine, cp3 muscle spasm, is appreciated in the left low back and right low back, 14:15 Constitutional: This is a well developed, well nourished patient who is awake, alert, cp3 and in no acute distress. Head/Face: Normocephalic, atraumatic. Eyes: Pupils equal round and reactive to light, extra-ocular motions intact. Lids and lashes normal. Conjunctiva and sclera are non-icteric and not injected. Cornea within normal limits. Periorbital areas with no swelling, redness, or edema. ENT: Nares patent. No nasal discharge, no septal abnormalities noted. Tympanic membranes are normal and external auditory canals are clear. Oropharynx with no redness, swelling, or masses, exudates, or evidence of obstruction, uvula midline. Mucous membranes moist. Neck: Trachea midline, no thyromegaly or masses palpated, and no cervical lymphadenopathy. Supple, full range of motion without nuchal rigidity, or vertebral point tenderness. No Meningismus. Chest/axilla: Normal chest wall appearance and motion. Nontender with no deformity. No lesions are appreciated. Cardiovascular: Regular rate and rhythm with a normal S1 and S2. No gallops, murmurs, or rubs. Normal PMI, no JVD. No pulse deficits. Respiratory: Lungs have equal breath sounds bilaterally, clear to auscultation and percussion. No rales, rhonchi or wheezes noted. No increased work of breathing, no retractions or nasal flaring. Abdomen/GI: Soft, non-tender, with normal bowel sounds. No distension or tympany. No guarding or rebound. No evidence of tenderness throughout. 14:15 Musculoskeletal/extremity: Compartment Syndrome exam of affected extremity: lumbar paraspinal tenderness. Vital Signs: 12:37 BP 162 / 57; Pulse 78; Resp 20 S; Temp 97.8(TE); Pulse Ox 99% on R/A; Weight 81.65 kg aa5 (R); Height 5 ft. 1 in. ; 13:57 BP 155 / 59; Pulse 80; Resp 18; Pulse Ox 99% on R/A; rs5 12:37 Body Mass Index 34.01 (81.65 kg, 154.94 cm) aa5 MDM: 12:39 Patient medically screened. cp3 13:48 Differential diagnosis: arthritis, Joint Injury ruptured disc, vertebral fracture. Data cp3 reviewed: vital signs, nurses notes, radiologic studies, CT scan. 13:53 Independent interpretation of the following test(s) in the Emergency Department CT cp3 Scan: My interpretation is no fracture noted on exam. 14:15 Consideration of Admission/Observation Escalation of care including cp3 admission/observation considered. I considered the following discharge prescriptions or medication management in the emergency department Medications were administered in the Emergency Department. See MAR. Response to treatment: the patient's symptoms have markedly improved after treatment. 08/18 13:01 Order name: CT Lumbar Spine Wo Con; Complete Time: 13:53 cp3 Administered Medications: 13:05 Drug: morphine IM 4 mg IM once Route: IM; Site: left deltoid; rs5 13:30 Follow up: Response: No adverse reaction; Pain is decreased rs5 14:15 Drug: HYDROcodone-acetaminophen PO 5 mg-325 mg 2 tabs PO once Route: PO; rs5 14:25 Follow up: Response: No adverse reaction rs5 Disposition Summary: 08/19/23 14:14 Discharge Ordered Notes: Location: Home cp3 Condition: Stable cp3 Diagnosis - Low back pain cp3 - Muscle spasm cp3 Followup: cp3 - With: Ga Portillo MD - When: As needed - Reason: Continuance of care Discharge Instructions: - Discharge Summary Sheet cp3 - Acute Back Pain, Adult cp3 Forms: - Medication Reconciliation Form cp3 - Thank You Letter cp3 - Antibiotic Education cp3 - Prescription Opioid Use cp3 - Patient Portal Instructions cp3 - Leadership Thank You Letter cp3 Prescriptions: - TYLENOL-3 1 tab po q 8 hours prn # 12 - take 1 tablet ORAL route 3 times per day As needed; 12 tablet; Refills: 0, cp3 Product Selection Permitted Signatures: Dispatcher [employer] Lyle David MD MD cp3 Lisa Bedoya RN RN aa5 Dante Wheatley RN RN rs5
[2023-08-19 15:03] VITALS: BP 155/59; TEMP 97.8; O2SAT 99
== END ==
LOC: ER 11:57
DX: M62.830 Muscle spasm of back (principal); Z88.5 Allergy status to narcotic agent; Z88.6 Allergy status to analgesic agent; Z91.040 Latex allergy status
CPT/HCPCS: 72131; 96372; 99284

== ENCOUNTER 2024-03-31 11:01 | Emergency (ER) | payer OTHER ==
--- OUTSIDE RECORDS SUMMARY | 2024-03-31 11:03 | XMS REPORT | Clinical Summary ---
Author Name Unknown Organization [facility] Address [address] [place] [address] Care Team Providers Care Hobbies [employer] Crafts Sales Representative Name Role Phone Elpidio Burr Unavailable Elpidio Burr Unavailable Devon Godwin MD Unavailable [phone] Yanick Shoemaker MD Unavailable [phone] Lito Kramer MD Primary Care Provider [email or web address] Mara Chandler MD Unavailable Marisol Box MD Unavailable [phone] Myron Shoemaker MD Unavailable [email or web address] Allergies Active Allergy Reactions Criticality Noted Date Comments Acetaminophen Rash Low 06/15/2016 Medications Medication Sig Dispensed Refills Start Date End Date Status acyclovir (ZOVIRAX) 200 mg capsule Take 2 capsules by mouth as needed. Active acyclovir (ZOVIRAX) 5% cream Apply 1 application topically to affected area(s) as needed. Active fenofibrate nanocrystallized (TRICOR) 145 mg tablet Take 1 tablet by mouth daily. Active FLUoxetine (PROzac) 20 mg capsule Take 1 capsule by mouth daily. Active isosorbide mononitrate (IMDUR) 30 mg 24 hr tablet Take 1 tablet by mouth daily. Active lisinopril-hydrochloro thiazide (PRINZIDE,ZESTORETIC) 20-12.5 mg per tablet Take 1 tablet by mouth twice daily. Active estrogens, conjugated, (PREMARIN) 1.25 mg tablet Take 1 tablet by mouth daily. Active traMADol (ULTRAM) 50 mg tablet Take 1 tablet by mouth every 6 (six) hours as needed. Active carisoprodol (SOMA) 350 mg tablet Take 1 tablet by mouth as needed. Active calcium carbonate (TUMS) 1000 mg (400 mg elemental calcium) chewable tablet Chew 2 tablets as needed. Active diethylpropion 25 mg tab TK 1 [...] medication in the middle of the day. Active aspirin 81 mg EC tablet Take 81 mg by mouth daily. Active amLODIPine (NORVASC) 5 mg tablet Take 5 mg by mouth daily. Active atorvastatin (LIPITOR) 40 mg tablet Take 40 mg by mouth at bedtime. 08/06/2019 Active fluocinolone 0.01 % oil Patient uses this 2-4 times a day 01/28/2019 Active clopidogrel (PLAVIX) 75 mg tablet Take 75 mg by mouth daily. 09/25/2019 Active LUMIGAN 0.01 % ophthalmic drops Administer 1 drop to both eyes. Patient states she does two drops 09/21/2019 Active gemfibrozil (LOPID) 600 mg tablet gemfibrozil 600 mg tablet TAKE 1 TABLET BY MOUTH TWICE DAILY Active icosapent ethyL (Vascepa) 1 gram cap Vascepa 1 gram capsule TAKE 2 CAPSULES BY MOUTH TWICE DAILY Active Active Problems Problem Noted Date Diagnosed [...] Hypertension 2009 Hyperlipidemia 2009 Irregular heart beat 2009 Heart valve disorder 2010 Neuropathy 2015 arm, wrist, shou lder Chronic [...] History Relation Name Comments Diabetes Brother Hermelindo Gilbert Sixto Hunt Coronary heart disease (CHD) Father Bennie Mcdowell Hypertension Father Bennie Mcdoewll -Brain cancer Maternal Aunt 1 Marisel Wilson [...] Name Status Comments Brother Sixto Del Valle Gilbert Father Bennie Mcdowell Maternal Aunt 1 Marisel [...] Health Maintenance Due Date Last Done Comments Pneumococcal Vaccine: 65+ Ye ars (3 of 3 - PPSV23 or PCV20) 06/05/2019 06/05/2014, 04/02/2013 COVID-19 Vaccine ( - season) 2024 06/04/2021, 08/05/2020, 07/08/2020 Influenza Vaccine (#1) 2024 , 04/16/2014, 04/02/2013 Care Teams Hobbies [employer] Crafts Sales Representative Relationship Specialty Start Date End Date Elpidio Burr PCP - External Referring 06/15/16 Elpidio Burr PCP - External Follow Up A 06/15/16 Devon Godwin MD [address] [place] [phone] PCP - External Follow Up B Cardiology 06/15/16 Yanick Shoemaker MD [address] [phone] [email or web address] PCP - External Follow Up C General Surgery 06/15/16 Lito Kramer MD [address] [phone] [email or web address] PCP - General Lymphoma and Myeloma 08/14/20 Mara Chandler MD [address] [place] [email or web address] Physician Lymphoma and Myeloma 06/15/16 Marisol Box MD [address] [place] [id number] [email or web address] Consulting Physician Dermatology 06/24/16 Myron Shoemaker MD [email or web address] Consulting Physician Rheumatology 06/17/16
[2024-03-31] MEDS ORDERED: NA CHLORIDE 0.9% 500 ML ONE ×2 (11:27→14:41)
[2024-03-31] MEDS ORDERED: ONDANSETRON 4 MG/2 ML VIAL ONE (11:54)
[2024-03-31 12:44] LABS: Absolute Eosinophils 0.1 K/uL (0-0.5); Absolute Neutrophil 2.2 K/uL (1.8-8.0); Basophils % 0.5 % (0-1.3); Platelets 166 thou/uL (152-406)
[2024-03-31 12:45] LABS: PT Prothrombin Time 12.4 SECONDS (9.4-12.5); Protime INR 1.11
[2024-03-31 12:47] LABS: Absolute Lymphocytes (CBC) 2.1 K/uL (0.7-4.9); Absolute Monocytes 0.6 K/uL (0.1-1.3); Eosinophils % 1.9 % (0-4.4); Hematocrit 34.1 % (36.0-45.0); Hemoglobin 11.5 g/dL (12.0-15.0); Lymphocytes % 41.4 % (15.3-44.8); MCH 31.7 pg (27.0-35.0); MCHC 33.7 g/dL (32.0-36.0); MCV 94.2 fL (80-100); Monocytes % 11.1 % (3.3-12.3); Neutrophils % 45.1 % (41.7-73.7); RBC Red Blood Cell Count 3.61 M/uL (3.86-4.86); Red Cell Distribution Width 14.3 % (12.1-15.2)
[2024-03-31 13:01] LABS: Albumin 2.8 g/dL (3.4-5.0); Albumin/Globulin Ratio 0.8 (1.1-1.8); Anion Gap 7.5 mEq/L (5.0-15.0); Bilirubin Total 0.3 mg/dL (0.2-1.0); Globulin 3.6 g/dL (2.3-3.5); Potassium 3.5 mEq/L (3.5-5.1); Protein, Total 6.4 g/dL (6.4-8.2); Troponin High Sensitivity 4.2 pg/mL (<58.9)
--- NOTE | 2024-03-31 13:26 | RAD REPORT ---
EXAMINATION: CT ABDOMEN AND PELVIS WITHOUT CONTRAST CLINICAL INDICATION: PAIN TECHNIQUE: CT abdomen and pelvis was performed, without IV contrast, as per department protocol. Axia l, sagittal and coronal reconstructions were obtained. One or more of the following dose reduction techniques were used: Automated exposure control, adjustment of the mA and kV according to the patien t size, and iterative reconstruction. Unless otherwise specified, incidental findings do not require dedicated imaging follow-up. COMPARISON: 05/26/2022 FINDINGS: The lack of intravenous contrast limits the sensitivity of this exam for evaluation of solid visceral organs, vascular structures, and retroperitoneum. LOWER CHEST: The visualized lung bases are clear. LIVER:Normal in size and contour. No focal lesion. Grossly unremarkable gallbladder. SPLEEN: Normal size. No focal lesion. PANCREAS: No mass, ductal dilation, or milan-pancreatic fluid. ADRENALS: Normal; no mass. KIDNEYS AND URETERS: Normal size and contour. No hydronephrosis. URINARY BLADDER: Normal contour. GASTROINTESTINAL TRACT: No evidence of bowel obstruction, significant free fluid, free air or abscess . Mild edema in the central small bowel mesentery with small lymph nodes appears unchanged. APPENDIX: Appendix not visualized, but no inflammatory changes in region of appendix. LYMPH NODES: No lymphadenopathy. MUSCULOSKELETAL: No acute or suspicious osseous abnormality. ADDITIONAL FINDINGS: None. IMPRESSION: No acute or concerning abnormalities in the abdomen or pelvis, with evaluation limited by lack of IV contrast.
[2024-03-31] MEDS ORDERED: DICYCLOMINE HCL 20 MG/2 ML AMP IM ONE (14:31)
[2024-03-31 14:51] LABS: Specific Gravity 1.005 (1.005-1.030); Sqamous Epithelial <5 /HPF (None Seen); Urine Bacteria <20 /HPF (<20); Urine Bilirubin NEGATIVE (Negative); Urine Blood Negative (Negative); Urine Clarity Clear (Clear); Urine Color Colorless (Yellow); Urine Culture Reflex Order NOT NEEDED; Urine Glucose NEGATIVE (Negative); Urine Ketones NEGATIVE (Negative); Urine Microscopic Reflex YN ORDER UMIC; Urine Nitrite NEGATIVE (Negative); Urine Protein NEGATIVE (Negative); Urine RBC <5 /HPF (None Seen); Urine Urobilinogen Normal (Normal); Urine WBC <5 /HPF (<5)
--- NOTE | 2024-03-31 15:58 | EDPHYS ---
Physician Documentation [facility] Name: Gregoria Vela Age: 74 yrs Sex: Female : 1950 Arrival Date: 03/31/2024 Time: 11:01 Bed 19 Private MD: ED Physician Dixon Nichole HPI: 03/31 11:39 This 74 yrs old Female presents to ER via Ambulatory with complaints of Flu Symptoms, bo1 Vomiting. 11:39 The patient presents to the emergency department with nausea, vomiting, diarrhea, bo1 abdominal pain, of the left lower quadrant, with "black" diarrhea in the past 36 hours. Onset: The symptoms/episode began/occurred suddenly. Associated signs and symptoms: Pertinent positives: abdominal pain, diarrhea, nausea, vomiting. Severity of symptoms: At their worst the symptoms were moderate Pt had taken some Excedrin for fever. Hx of the flu shot. Historical: - Allergies: 11:11 ACETAMINOPHEN; ap3 11:11 Hydrocodone-Acetaminophen; ap3 11:11 Latex; ap3 - PMHx: 11:11 CAD; cardiac stent; chronic back pain; Hyperlipidemia; Hypertension; LYMPHOMA; plate in ap3 head; skin cancer; - PSHx: 11:11 plate in head; ap3 - Immunization history:: Client reports having NOT received the Covid vaccine. Flu vaccine is up to date. - Infectious Disease History:: Denies. - Social history:: Smoking status: Patient denies any tobacco usage or history of. ROS: 11:41 Cardiovascular: Positive for chest pain, of the chest, Left sided, bo1 15:53 Constitutional: Negative for weight loss bo1 15:53 ENT: Positive for ear pain, of the right ear, 15:53 Neck: Negative for pain with movement, pain at rest, 15:53 Respiratory: Negative for shortness of breath, 15:53 Abdomen/GI: Positive for abdominal pain, of the left lower quadrant, 15:53 MS/extremity: Negative for rash, swelling, tenderness, 15:53 Neuro: Negative for altered mental status, dizziness, 15:53 All other systems are negative, Exam: 12:01 ECG was reviewed by the Attending Physician. bo1 12:11 Abdomen/GI: Rectal exam: tenderness, is not appreciated, the exam is chaperoned by the bo1 nurse, No "black" stool - "green leidy" found. 12:45 Constitutional: This is a well developed, well nourished patient who is awake, alert, bo1 and in no acute distress. 12:45 Head/face: Exam is negative for acute changes, 12:45 ENT: Exam is negative for acute changes, Right EAC has a "cotton" plug in it. 12:45 Neck: External neck: is normal, 12:45 Cardiovascular: Rate: bradycardic, Rhythm: regular, Pulses: no pulse deficits are appreciated, Heart sounds: normal, 12:45 Respiratory: the patient does not display signs of respiratory distress, Respirations: normal, Breath sounds: are clear throughout, 12:45 Abdomen/GI: Inspection: abdomen appears normal, Palpation: mild abdominal tenderness, in the left lower quadrant, 12:45 Musculoskeletal/extremity: Extremities: all appear grossly normal, with no appreciated pain with palpation, 12:45 Skin: no rash present. 15:56 ENT: TM's: are normal, No erythema or displaced light reflex, bo1 Vital Signs: 11:09 BP 166 / 66; Pulse 58; Resp 18; Temp 97.9(O); Pulse Ox 97% on R/A; Weight 83.01 kg; ap3 Height 5 ft. 1 in. ; Pain 7/10; 11:30 BP 179 / 58; Pulse 57; Resp 18; Pulse Ox 96% on R/A; db 12:44 BP 183 / 66; Pulse 56; Resp 18; Pulse Ox 95% on R/A; tl4 13:45 BP 164 / 61; Pulse 52; Resp 18; Pulse Ox 97% on R/A; tl4 14:45 BP 157 / 67; Pulse 51; Resp 20; Pulse Ox 97% on R/A; tl4 15:45 BP 150 / 47; Pulse 53; Resp 18; Pulse Ox 98% on R/A; tl4 16:22 BP 149 / 62; Pulse 53; Resp 18; Temp 98.2(O); Pulse Ox 97% on R/A; tl4 11:09 Body Mass Index 34.58 (83.01 kg, 154.94 cm) ap3 11:09 Pain Scale: Adult ap3 MDM: 11:05 Medical Screening Exam initiated bo1 15:54 Differential diagnosis: Nonspecific abd pain, gastroenteritis, Viral syndrome; bo1 Non-influenza. 15:55 Data reviewed: vital signs, lab test result(s), CBC, electrolytes, Flu: urinalysis. ED bo1 course: Pt is better after NSx2 IVF being given along with some Bentyl IM. 03/31 11:20 Order name: CBC with Diff; Complete Time: 12:47 bo1 03/31 11:20 Order name: CMP; Complete Time: 13:29 bo1 03/31 11:20 Order name: Lipase; Complete Time: 13:29 bo1 03/31 11:20 Order name: Urinalysis w/ reflexes; Complete Time: 14:59 bo1 03/31 11:20 Order name: Troponin HS; Complete Time: 13:29 bo1 03/31 11:20 Order name: PT-INR; Complete Time: 12:47 bo1 03/31 11:21 Order name: Flu; Complete Time: 12:47 bo1 03/31 12:49 Order name: CT Abd/Pelvis - Without Contrast; Complete Time: 13:29 bo1 03/31 11:20 Order name: IV Saline Lock; Complete Time: 12:40 bo1 03/31 11:20 Order name: Labs collected and sent; Complete Time: 11:42 bo1 03/31 11:52 Order name: Labs - recollect needed; Complete Time: 12:39 hb EC:01 Rate is 54 beats/min. Rhythm is regular. QRS [place] is Normal. UT interval is normal. QRS bo1 interval is normal. QT interval is normal. No Q waves. T waves are Normal. No ST changes noted. Clinical impression: Sinus bradycardia. Interpreted by me. Reviewed by me. Administered Medications: 11:51 CANCELLED (Physician Discretion): ondansetron 4 mg IVP once; over 2 minutes bo1 12:39 Drug: NS 0.9% IV 500 ml IV at bolus once; to be given as a bolus over 30 minutes Route: tl4 IV; Rate: bolus; Site: left wrist; Delivery: Primary tubing; 14:24 Follow up: IV Status: Completed infusion; IV Intake: 500ml tl4 12:39 Drug: Ondansetron IVP 4 mg IVP once; over 2 minutes Route: IVP; Infused Over: 2 mins; tl4 Site: left wrist; 13:02 Follow up: Response: No adverse reaction; Nausea is decreased tl4 14:42 Drug: Dicyclomine IM 20 mg IM once Route: IM; Site: right ventrogluteal; tl4 15:22 Follow up: Response: No adverse reaction; Pain is decreased tl4 14:51 Drug: NS 0.9% IV 500 ml 500 ml IV at 1 bolus once; to be given as a bolus over 30 tl4 minutes Volume: 500 ml; Route: IV; Rate: 1 bolus; Site: left wrist; Delivery: Primary tubing; 15:30 Follow up: Response: No adverse reaction; IV Status: Completed infusion; IV Intake: tl4 500ml Disposition Summary: 03/31/24 15:58 Discharge Ordered Notes: Location: Home bo1 Problem: new bo1 Symptoms: have improved bo1 Condition: Stable bo1 Diagnosis - Other specified viral diseases bo1 - Abdominal pain, unspecified bo1 Followup: bo1 - With: Private Physician - When: Tomorrow - Reason: Recheck today's complaints, Continuance of care Discharge Instructions: - Discharge Summary Sheet bo1 - Viral Respiratory Infection bo1 - Abdominal Pain, Adult, [id number] bo1 Forms: - Medication Reconciliation Form bo1 - Antibiotic Education bo1 - Prescription Opioid Use bo1 - Patient Portal Instructions bo1 - Leadership Thank You Letter bo1 Prescriptions: - ondansetron 8 mg Oral Tablet,disintegrating - take 1 tablet ORAL route every 12 hours; 10 tablet; Refills: 0, Product bo1 Selection Permitted Signatures: Dispatcher [employer] EDCris Galloway, RN RN Leanna Martinez RN RN ap3 Jamir Cedeno RN RN tl4 Dixon Nichole MD MD bo1 Corrections: (The following items were deleted from the chart) 11:51 11:38 Ondansetron IVP 4 mg IVP once; over 2 minutes ordered. bo1 bo1
--- NOTE | 2024-03-31 15:58 | ER ---
Nurse's Notes [facility] Name: Gregoria Vela Age: 74 yrs Sex: Female : 1950 Arrival Date: 03/31/2024 Time: 11:01 Bed 19 Private MD: Diagnosis: Other specified viral diseases;Abdominal pain, unspecified Presentation: 03/31 11:09 Chief complaint: Patient states: she has been having a runny nose, right ear pain, ap3 vomiting and diarrhea, and body aches since Monday03/29/24. patient currently rates her pain as a 7/10 on the pain scale. Coronavirus screen: Client presents with at least one sign or symptom that may indicate coronavirus-19. Ebola Screen: No symptoms or risks identified at this time. Initial Sepsis Screen: Does the patient meet any 2 criteria? No. Patient's initial sepsis screen is negative. Does the patient have a suspected source of infection? No. Patient's initial sepsis screen is negative. Risk Assessment: Do you want to hurt yourself or someone else? Patient reports no desire to harm self or others. Onset of symptoms was March 29, 2024. Transition of care: patient was not received from another setting of care. 11:09 Method Of Arrival: Ambulatory ap3 11:09 Acuity: ERIC 3 ap3 Triage Assessment: 11:11 General: Appears ill, Behavior is calm, cooperative, appropriate for age, Reports ap3 chills for fever for feeling ill for fatigue for. Pain: Complains of pain in body aches, right ear. Neuro: Level of Consciousness is awake, alert, obeys commands, Oriented to person, place, time, situation, Appropriate for age Gait is steady, Speech is normal. Cardiovascular: Patient's skin is warm and dry. Respiratory: Airway is patent Respiratory effort is even, unlabored, Respiratory pattern is regular, symmetrical. GI: Reports diarrhea, nausea, vomiting. Historical: - Allergies: 11:11 ACETAMINOPHEN; ap3 11:11 Hydrocodone-Acetaminophen; ap3 11:11 Latex; ap3 - PMHx: 11:11 CAD; cardiac stent; chronic back pain; Hyperlipidemia; Hypertension; LYMPHOMA; plate in ap3 head; skin cancer; - PSHx: 11:11 plate in head; ap3 - Immunization history:: Client reports having NOT received the Covid vaccine. Flu vaccine is up to date. - Infectious Disease History:: Denies. - Social history:: Smoking status: Patient denies any tobacco usage or history of. Screenin:12 [facility] ED Fall Risk Assessment (Adult) History of falling in the last 3 months, ap3 including since admission No falls in past 3 months (0 pts) Confusion or Disorientation No (0 pts) Intoxicated or Sedated No (0 pts) Impaired Gait No (0 pts) Mobility Assist Device Used No (0 pt) Altered Elimination No (0 pt) Score/Fall Risk Level 0 - 2 = Low Risk Oriented to surroundings, Maintained a safe environment, Educated pt \T\ family on fall prevention, incl call for assistance when getting out of bed, Assessed \T\ reinforced patient's understanding of fall precautions, Provided non-skid footwear, Hourly rounding (assess needs \T\ fall precautionary measures) done, Used ambulatory aids as needed (educated on \T\ assisted with), Used gait belt as appropriate. Abuse screen: Denies threats or abuse. Nutritional screening: No deficits noted. Tuberculosis screening: No symptoms or risk factors identified. Assessment: 11:40 Reassessment: Patient appears in no apparent distress at this time. Patient and/or db family updated on plan of care and expected duration. Pain level reassessed. Patient is alert, oriented x 3, equal unlabored respirations, skin warm/dry/pink. General: Appears in no apparent distress. comfortable, Behavior is calm, cooperative, appropriate for age. Neuro: Level of Consciousness is awake, alert, obeys commands, Oriented to person, place, time, situation. Respiratory: Airway is patent Respiratory effort is even, unlabored, Respiratory pattern is regular, symmetrical. GI: Abdomen is non-distended, Reports diarrhea, nausea, vomiting. 12:40 Reassessment: Patient and/or family updated on plan of care and expected duration. Pain tl4 level reassessed. Patient is alert, oriented x 3, equal unlabored respirations, skin warm/dry/pink. Pt updated on status. Pt denies any needs. Pt covered with warm blanket for comfort. Family at bedside. Call james at bedside. Will continue to monitor. 16:22 Reassessment: Patient and/or family updated on plan of care and expected duration. Pain tl4 level reassessed. Patient is alert, oriented x 3, equal unlabored respirations, skin warm/dry/pink. Patient states feeling better. Vital Signs: 11:09 BP 166 / 66; Pulse 58; Resp 18; Temp 97.9(O); Pulse Ox 97% on R/A; Weight 83.01 kg; ap3 Height 5 ft. 1 in. ; Pain 7/10; 11:30 BP 179 / 58; Pulse 57; Resp 18; Pulse Ox 96% on R/A; db 12:44 BP 183 / 66; Pulse 56; Resp 18; Pulse Ox 95% on R/A; tl4 13:45 BP 164 / 61; Pulse 52; Resp 18; Pulse Ox 97% on R/A; tl4 14:45 BP 157 / 67; Pulse 51; Resp 20; Pulse Ox 97% on R/A; tl4 15:45 BP 150 / 47; Pulse 53; Resp 18; Pulse Ox 98% on R/A; tl4 16:22 BP 149 / 62; Pulse 53; Resp 18; Temp 98.2(O); Pulse Ox 97% on R/A; tl4 11:09 Body Mass Index 34.58 (83.01 kg, 154.94 cm) ap3 11:09 Pain Scale: Adult ap3 ED Course: 11:03 Patient arrived in ED. ra3 11:05 Dixon Nichole MD is Attending Physician. bo1 11:09 Leanna Martinez, GELACIO is Primary Nurse. ap3 11:11 Triage completed. ap3 11:12 Arm band placed on right wrist. ap3 11:13 Patient has correct armband on for positive identification. Bed in low position. Call ap3 light in reach. Side rails up X 1. Adult w/ patient. Provided Education on: call light education . Pulse ox on. NIBP on. 11:40 Initial lab(s) drawn, by me, sent to lab. Missed attempt(s): 22 gauge in right forearm. db Bleeding controlled, band aid applied, catheter tip intact. 11:40 Flu and/or RSV swab sent to lab. db 12:00 Report given to gelacio de. ap3 12:39 PT-INR Sent. tl4 12:39 Troponin HS Sent. tl4 12:39 CBC with Diff Sent. tl4 12:40 CMP Sent. tl4 12:40 Lipase Sent. 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 Lab(s) recollected, by me, sent to lab. tl4 Inserted saline lock: 22 gauge in left wrist, using aseptic technique. Blood collected. Flushed with 10 mL NS. 13:21 CT Abd/Pelvis - Without Contrast In Process Unspecified. EDMS 16:22 Jamir Cedeno, RN is Primary Nurse. tl4 16:24 IV discontinued, intact, bleeding controlled, No redness/swelling at site. Pressure tl4 dressing applied. Administered Medications: 11:51 CANCELLED (Physician Discretion): ondansetron 4 mg IVP once; over 2 minutes bo1 12:39 Drug: NS 0.9% IV 500 ml IV at bolus once; to be given as a bolus over 30 minutes Route: tl4 IV; Rate: bolus; Site: left wrist; Delivery: Primary tubing; 14:24 Follow up: IV Status: Completed infusion; IV Intake: 500ml tl4 12:39 Drug: Ondansetron IVP 4 mg IVP once; over 2 minutes Route: IVP; Infused Over: 2 mins; tl4 Site: left wrist; 13:02 Follow up: Response: No adverse reaction; Nausea is decreased tl4 14:42 Drug: Dicyclomine IM 20 mg IM once Route: IM; Site: right ventrogluteal; tl4 15:22 Follow up: Response: No adverse reaction; Pain is decreased tl4 14:51 Drug: NS 0.9% IV 500 ml 500 ml IV at 1 bolus once; to be given as a bolus over 30 tl4 minutes Volume: 500 ml; Route: IV; Rate: 1 bolus; Site: left wrist; Delivery: Primary tubing; 15:30 Follow up: Response: No adverse reaction; IV Status: Completed infusion; IV Intake: tl4 500ml Medication: 11:13 VIS not applicable for this client. ap3 Intake: 14:24 IV: 500ml; Total: 500ml. tl4 15:30 IV: 500ml; Total: 1000ml. tl4 Outcome: 15:58 Discharge ordered by . bo1 16:25 Discharged to home ambulatory, with family, tl4 16:25 Condition: stable 16:25 Discharge instructions given to patient, family, Instructed on discharge instructions, follow up and referral plans. medication usage, Demonstrated understanding of instructions, follow-up care, medications, Prescriptions given X 1, 16:31 Patient left the ED. tl4 Signatures: Dispatcher [employer] EDMS Leanna Martinez RN RN ap3 Celena Jameson RN RN Jamir Prasad RN RN tl4 Yamini Alex ra3 Dixon Nichole MD MD bo1
[2024-03-31 21:56] VITALS: BP 149/62; TEMP 98.2; O2SAT 97
--- NOTE | 2024-04-01 12:36 | EKG ---
Test Date: 2024-03-31 Test Time: 11:43:45 Route Relief Driver: ARTI MEASUREMENT RESULTS: Intervals: Rate: 54 KS: 158 QRSD: 100 QT: 452 QTc: 428 [place]: P: 74 KS: 158 QRS: -29 T: 72 INTERPRETIVE STATEMENTS: Sinus bradycardia Low voltage QRS Borderline ECG Compared to ECG 06/14/2021 13:25:27 Sinus tachycardia no longer present Myocardial infarct finding no longer present Electronically Signed On 04-01-24 12:35:47 CDT by Abdifatah Guzman
== END 2024-03-31 16:31 | disposition home or self-care (01) ==
LOC: ER 11:01
DX: B34.8 Other viral infections of unspecified site (principal); R10.9 Unspecified abdominal pain; I10 Essential (primary) hypertension; E78.5 Hyperlipidemia, unspecified; I25.10 Atherosclerotic heart disease of native coronary artery without angina pectoris; Z95.5 Presence of coronary angioplasty implant and graft; Z88.5 Allergy status to narcotic agent; Z91.040 Latex allergy status
CPT/HCPCS: 85025; 81001; 36415; 85610; 84484; 83690; 80053; 87804 ×2; 74176; J0500; J2405; J7040 ×2; 93005; 96361; 96372; 96374; 99284

== ENCOUNTER 2024-10-12 09:19 | Inpatient (IN) | payer OTHER ==
--- OUTSIDE RECORDS SUMMARY | 2024-10-12 09:22 | XMS REPORT | Clinical Summary ---
Author Name Unknown Organization [facility] [place] Address [address] [place] [address] Care Team Providers Care Semiconductor Manufacturing Technician Name Role Phone Elpidio Burr Unavailable Elpidio Burr Unavailable Devon Godwin MD Unavailable [phone] Yanick Shoemaker MD Unavailable [phone] Lito Kramer MD Primary Care Provider [email or web address] [email or web address] Mara Chandler MD Unavailable [phone] Marisol Box MD Unavailable [phone] Myron Shoemaker MD Unavailable [email or web address] Akilah Palma APRN Primary Care Provider [phone] Allergies Active Allergy Reactions Criticality Noted Date Comments Clopidogrel Rash Low 06/15/2021 Contact Metal Agent 07/26/2024 Latex, Natural Rubber Rash Low 10/14/2020 Ticagrelor Rash Low 06/14/2021 Tylenol Allergy Cmp Mult-Sx Nt Rash Low 03/26 Acetaminophen Rash Low 06/15/2016 Medications * This document contains information received from the source organization and may not represent a complete record from that organization. acyclovir (ZOVIRAX) 200 mg capsule Take 2 capsules (400 mg) by mouth as needed. Active acyclovir (ZOVIRAX) 5% cream Apply 0.5 inches (1 application ) topically to affected area(s) as needed. Active traMADol (ULTRAM) 50 mg tablet Take 1 tablet (50 mg) by mouth every 6 (six) hours as needed. Active carisoprodol (SOMA) 350 mg tablet Take 1 tablet (350 mg) by mouth as needed. Active hydrOXYzine HCl (ATARAX) 25 mg tabletIndications:O ther pruritus,Dermatogra phic urticaria TAKE 1 OR 2 TABLETS BY MOUTH EVERY NIGHT AT BEDTIME NEEDED FOR ITCHING. 60 tablet 5 01/02/20 17 Active Additional Information Patient taking differently: Patient states that she take 50 mg in the morning and 50 mg in the evening, Reason: Other, Reported on 07/26/2024 atorvastatin (LIPITOR) 40 mg tablet Take 1 tablet (40 mg) by mouth at bedtime. 08/06/19 20 Active fluocinolone 0.01 % oil Patient uses this 2-4 times a day 01/29/20 19 Active LUMIGAN 0.01 % ophthalmic drops Administer 1 drop to both eyes. Patient states she does two drops 09/21/19 20 Active famotidine (PEPCID) 40 mg tablet TAKE 1 TABLET BY MOUTH EVERY DAY Active furosemide (LASIX) 20 mg tablet Take 2 tablets every day by oral route. 05/27/20 24 Active metoprolol succinate (TOPROL XL) 25 mg 24 hr tablet Take 1 tablet every day by oral route. 05/27/20 24 Active valsartan (DIOVAN) 320 mg tablet Take 1 tablet every day by oral route. 05/24/20 24 Active gabapentin (NEURONTIN) 300 mg capsule Take 2 capsules every day by oral route at bedtime. 05/25/20 21 Active prasugrel (EFFIENT) 10 mg tablet TAKE 1 TABLET BY MOUTH EVERY DAY 05/24/20 24 Active fenofibrate nanocrystallized (TRICOR) 145 mg tablet Take 1 tablet (145 mg) by mouth daily. 025 Discontin ued(Disco ntinued by another clinician ) FLUoxetine (PROzac) 20 mg capsule Take 1 capsule (20 mg) by mouth daily. 025 Discontin ued(Disco ntinued by another clinician ) isosorbide mononitrate (IMDUR) 30 mg 24 hr tablet Take 1 tablet (30 mg) by mouth daily. 025 Discontin ued(Disco ntinued by another clinician ) lisinopril-hydrochl orothiazide (PRINZIDE,ZESTORETI C) 20-12.5 mg per tablet Take 1 tablet by mouth twice daily. 025 Discontin ued(Patie nt Discharge ) estrogens, conjugated, (PREMARIN) 1.25 mg tablet Take 1 tablet (1.25 mg) by mouth daily. 025 Discontin ued(Patie nt Discharge ) calcium carbonate (TUMS) 1000 mg (400 mg elemental calcium) chewable tablet Chew and swallow 2 tablets (2,000 mg) by mouth as needed. 025 Discontin ued(Patie nt Discharge ) diethylpropion 25 mg tab TK 1 T PO TID BEFORE MEALS 0 03/24/20 16 025 Discontin ued(Disco ntinued by another clinician ) HYDROXYZINE PAMOATE ORAL Take 100 mg by mouth daily. Patient states that she takes this medication in the middle of the day. 025 Discontin ued(Patie nt Discharge ) aspirin 81 mg EC tablet Take 1 tablet (81 mg) by mouth daily. 025 Discontin ued(Disco ntinued by another clinician ) amLODIPine (NORVASC) 5 mg tablet Take 1 tablet (5 mg) by mouth daily. 025 Discontin ued(Disco ntinued by another clinician ) clopidogrel (PLAVIX) 75 mg tablet Take 1 tablet (75 mg) by mouth daily. 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 Bilateral trochanteric bursitis 06/17/2016 Encounters Date Type Department Care Team Description 07/26/2024 3:20 PM NURSERY SCHOOL TEACHER Clinical Support Undiagnosed Breast Clinic [address] [facility] [facility]th [place] [address] Akilah Palma APRN 07/26/2024 12:44 PM NURSERY SCHOOL TEACHER - 07/26/2024 11:59 PM NURSERY SCHOOL TEACHER Hospital Encounter Breast Imaging [address] [facility], 5th [place] [address] Akilah Palma APRN Mammography abnormal Discharge Disposition: Home 07/26/2024 11:27 AM NURSERY SCHOOL TEACHER - 07/26/2024 12:43 PM NURSERY SCHOOL TEACHER Hospital Encounter Breast Imaging [address] [facility] 5th Floor [facility] [place] [address] Akilah Palma APRN Mammography abnormal Discharge Disposition: Home 07/26/2024 10:00 AM NURSERY SCHOOL TEACHER Office Visit Undiagnosed Breast Clinic [address] [place] [address], [address] [place] [address] Akilah Palma APRN Breast lump present (Primary Dx); Mastodynia; History of B-cell lymphoma; Encounter for other screening for malignant neoplasm of breast 07/26/2024 Travel 07/24/2024 8:10 PM NURSERY SCHOOL TEACHER Ancillary Procedure Image Library [address] [place] [address] Akilah Palma APRN Cancer 07/24/2024 8:05 PM NURSERY SCHOOL TEACHER Ancillary Procedure Image Library [address] [place] [address] Akilah Palma APRN Cancer 07/24/2024 8:00 PM NURSERY SCHOOL TEACHER Ancillary Procedure Image Library [address] [place] [address] Akilah Palma APRN Cancer 07/24/2024 11:00 AM NURSERY SCHOOL TEACHER NPR MDA PATIENT ACCESS Akilah Palma APRN 07/22/2024 8:05 PM NURSERY SCHOOL TEACHER Ancillary Procedure Image Library [address] [place] [address] Akilah Palma APRN Cancer 07/22/2024 8:00 PM NURSERY SCHOOL TEACHER Ancillary Procedure Image Library [address] [place] [address] Akilah Palma APRN Cancer 07/17/2024 Orders Only Cancer Prevention Center ([facility]) [address] [facility], [address] [place] [address] Akilah Palma APRN Mammography abnormal (Primary Dx); Postmenopausal hormone replacement therapy after 10/13/2023 Immunizations Name Administration Dates Next Due Fluad Quad Pf 03/19/2022 Flumist Quadrivalent 03/26/2021 Influenza Quadrivalent High Dose 03/26/2021 Influenza, high dose, trivalent, preservative fr ee 04/16/2014 Influenza, split virus, trivalent, preservative 04/02/2013 Pneumococcal Conjugate 13-Valent 06/05/2014 Pneumococcal Polysaccharide PPSV23 04/02/2013 Tdap 10/02/2015 Surgical History Surgery Date Site/Laterality Comments APPENDECTOMY [...] a yumi, rightone Mammoplasty Silicone breast implants 1975, but, removed in 2006 Chronic bronchitis 2005 [...] Name Comments Diabetes Brother Sixto Del Valle Coronary heart disease (CHD) Father Bennie Mcdowell Hypertension Father Bennie Mcdowell -Brain cancer Maternal Aunt 1 Marisel Wilson -Gastrointestinal (Esophagus , Liver, Bile Duct, Stomach, Pancreas, Colon, Rectum, Anus Maternal Aunt 2 Elana Jama -Leukemia Maternal Aunt 3 Barbara Griffin -Gynecology [...] 0 06/05/1968 - 06/05/1978 Smokeless Tobacco: Never Tobacco Cessation:Counseling Given: Not Answered Alcohol Use Standard Drinks/Week Comments No 0 (1 standard drink = 0.6 oz pur e alcohol) Comments No Sex and Gender Information Value Date Recorded Sex Assigned at Not on file Legal Sex Female 2:24 PM NURSERY SCHOOL TEACHER Gender Identity Not on file Sexual Orientation Not on file Occupation Industry Job Start Date Job End Date Retired Not on file Not on file Not on file Obstetrics History Para Term AB IAB SAB Ectopic Multiple Livin g Live Births 2 2 2 Date Outcome GA Total Labor Labor/2nd/3rd Weight Sex Type Anes PTL Sweta A1 A5 Name Clin Para Para Comments Menarche 16 Parity 31 OBC Used for 5-10 years Hormonal Therapy Premarin for 3 years Last Pap (OS) Remote Abnormal Pap None Last Julio Cesar None Last Colon (OS) 2020 Benign polyps Breast Bx None Last Filed Vital Signs Vital Sign Reading Time Taken Comments Blood Pressure 146/69 07/26/2024 9:48 AM NURSERY SCHOOL TEACHER Pulse 93 07/26/2024 9:48 AM NURSERY SCHOOL TEACHER Temperature - - Respiratory Rate 18 07/26/2024 9:48 AM NURSERY SCHOOL TEACHER Oxygen Saturation - - Inhaled Oxygen Concentration - - Weight 84 kg (185 lb 3 oz) 07/26/2024 9:48 AM CS T Height 152 cm (4' 11.84") 07/26/2024 9:48 AM NURSERY SCHOOL TEACHER Body Mass Index 36.36 07/26/2024 9:48 AM NURSERY SCHOOL TEACHER Plan of Treatment Upcoming Encounters Date Type Department Care Team (Late st Contact Info) Description 07/31/2025 10:25 AM NURSERY SCHOOL TEACHER Appointment Breast Imaging ([facility]) [address] [facility], [address] [place] [address] Akilah Palma, COATING MACHINE OPERATOR [address] [place] [address] [email or web address] 07/31/2025 11:20 AM NURSERY SCHOOL TEACHER Office Visit Cancer Prevention Center ([facility]) [address] [facility] [address], [address] [place] [address] Akilah Palma, COATING MACHINE OPERATOR [address] [place] [address] [email or web address] Health Maintenance Due Date Last Done Comments Pneumococcal Vaccine: 50+ Ye ars (3 of 3 - PPSV23, PCV20 or PCV21) 04/02/2018 06/05/2014, 04/02/2013 COVID-19 Vaccine (3 - Modern a risk series) 07/02/2021 06/04/2021, 08/05/2020, 07/08/2020 Influenza Vaccine (Season Ended) 2025 03/19/2022, 03/26/2021, 03/26/2021, Additional history exists Procedures Procedure Name Priority Date/Time Associated Diagnosis Comments US BREAST COMPLETE BILATERAL Routine 07/26/2024 2:20 PM NURSERY SCHOOL TEACHER Mammography abnormal MAMMO DIGITAL DIAGNOSTIC BILATERAL W [facility] Routine 07/26/2024 12:48 PM NURSERY SCHOOL TEACHER Mammography abnormal O[facility] US BREAST Routine 03/06/2024 8:16 PM CDT Cancer [facility] US BREAST Routine 03/06/2024 8:16 PM CDT Cancer after 10/13/2023 Results * US Breast Complete Bilateral (07/26/2024 2:20 PM NURSERY SCHOOL TEACHER) Anatomical Region Laterality Modality Breast Bilateral Ultrasound Impressions 07/26/2024 4:45 PM NURSERY SCHOOL TEACHER Bilateral No suspicious sonographic findings identified. Recommend clinical follow-up for the patient's breast pain and bilateral palpable findings. Overall BI-RAD Category: 2 - Benign Recommend return to annual screening mammography, due on 07/2025. Narrative 07/26/2024 4:45 PM NURSERY SCHOOL TEACHER CLINICAL INDICATION: Patient is a 74 y.o. female and is seen for abnormal mammogram. US Breast Complete Bilateral COMPARISON: The present examination has been compared to prior imaging studies performed : 12/20/2013 [facility] Mammo at External outside facility, 02/23/2016 [facility] Mammo at External outside facility, 05/03/2018 [facility] Mammo at External outside facility, 03/06/2024 [facility] US Breast at External outside facility, 03/06/2024 [facility] US Breast at External outside facility, 07/26/2024 Mammography Digital Diagnostic Bilateral with [facility] at [facility] TECHNIQUE: Real-time sonographic imaging was performed on the following regions: bilateral, breast (including all 4 quadrants and retroareolar region). Images were obtained in multiple scanning planes. FINDINGS: Left Breast No suspicious sonographic findings identified. There is retroareolar ductal ectasia. No sonographic correlate for the patient's left breast pain. No sonographic correlate for the palpable finding in the 11 o'clock position, 5 cm from the nipple. Clinical follow-up is recommended for the pain and palpable area. Right Breast No suspicious sonographic findings identified. There is retroareolar ductal ectasia. There is no sonographic correlate for the right breast pain. No sonographic correlate for the palpable finding in the 10 o'clock position, 7 cm from the nipple. Clinical follow-up is recommended for the pain and palpable area. A benign-appearing cyst is noted in the 6 o'clock position. us Akilah Palma APRN IMG US ORDERABLES Final R esult * (ABNORMAL) Mammography Digital Diagnostic Bilateral with [facility] (07/26/2024 12:48 PM NURSERY SCHOOL TEACHER) Anatomical Region Laterality Modality Breast Bilateral Mammography Impressions 07/26/2024 4:42 PM NURSERY SCHOOL TEACHER Right 1) Pertinent Negative: Right breast pertinent negative in the lower region. Additional Imaging: Breast Ultrasound is recommended. Bilateral 2) Pertinent Negative: Both breasts pertinent negative in the upper outer quadrants. Additional Imaging: Breast Ultrasound is recommended. Overall BI-RAD Category: 0 - Incomplete: Needs Additional Imaging Evaluation Additional Imaging: Breast Ultrasound is recommended for both breasts. Narrative 07/26/2024 4:42 PM NURSERY SCHOOL TEACHER CLINICAL INDICATION: Patient is a 74 y.o. female and is seen for bilateral palpable findings, right breast pain, right breast probably benign mass. Mammography Digital Diagnostic Bilateral with [facility] Computer-aided detection was utilized by the radiologist in the interpretation of this examination. Tomosynthesis was performed in CC and MLO projections. COMPARISON: The present examination has been compared to prior imaging studies performed : 12/20/2013 [facility] Mammo at External outside facility, 02/23/2016 [facility] Mammo at External outside facility, 05/03/2018 [facility] Mammo at External outside facility, 03/06/2024 [facility] US Breast at External outside facility, 03/06/2024 [facility] US Breast at External outside facility FINDINGS: There are scattered areas of fibroglandular density. Right 1) Pertinent Negative: A 6 month follow-up ultrasound was recommended on [facility] US from 03/06/2024 for a sonographically detected probably benign mass in the right breast 6 o'clock position. Bilateral 2) Pertinent Negative: There is no finding to correlate with the bilateral palpable areas or right breast pain. us Akilah Palma APRN IMG MAMMOGRAPHY ORDERABLE S Final Result * [facility] US Breast (03/06/2024 8:16 PM CDT) Only the most recent of2 resultswithin the time period is included. Narrative [facility] - 07/22/2024 8:16 PM NURSERY SCHOOL TEACHER Study acquired at another institution. For comparison only. No [facility] originated interpretation requested or available. us Akilah Alejandreierrez COATING MACHINE OPERATOR IMG OUTSIDE IMAGE ORDERAB LES Final Result [facility] after 10/13/2023 Insurance [employer] MED[employer] PPO [employer] PPO Care Teams Semiconductor Manufacturing Technician Relationship Specialty Start Date End Date Elpidio Burr PCP - External Referring 06/15/16 Elpidio Burr PCP - External Follow Up A 06/15/16 Devon Godwin MD [address] [phone] PCP - External Follow Up B Cardiology 06/15/16 Yanick Shoemaker MD [address] [place] [phone] [email or web address] PCP - External Follow Up C General Surgery 06/15/16 Lito Kramer MD [address] [place] [phone] [email or web address] PCP - General Lymphoma and Myeloma 08/14/20 07/16/24 Akilah Palma APRN [address] [place] [email or web address] PCP - General Cancer Prevention 07/17/24 Mara Chandler MD [address] [place] [id number] [email or web address] Physician Lymphoma and Myeloma 06/15/16 Marisol Box MD [address] [place] [phone] [email or web address] Consulting Physician Dermatology 06/24/16 Myron Shoemaker MD [email or web address] Consulting Physician Rheumatology 06/17/16
[2024-10-12 10:11] LABS: Absolute Basophils 0.1 K/uL (0-0.5); Absolute Eosinophils 0.2 K/uL (0-0.5); Absolute Lymphocytes (CBC) 2.4 K/uL (0.7-4.9); Absolute Monocytes 0.8 K/uL (0.1-1.3); Absolute Neutrophil 3.4 K/uL (1.8-8.0); Basophils % 0.8 % (0-1.3); Eosinophils % 2.6 % (0-4.4); Hematocrit 35.7 % (36.0-45.0); Hemoglobin 12.2 g/dL (12.0-15.0); Lymphocytes % 35.8 % (15.3-44.8); MCH 31.5 pg (27.0-35.0); MCHC 34.3 g/dL (32.0-36.0); MCV 91.8 fL (80-100); MPV 8.4 fL (7.6-11.3); Monocytes % 11.6 % (3.3-12.3); Neutrophils % 49.2 % (41.7-73.7); Nucleated Red Blood Cells % 0.3 % (0-0); Platelets 192 thou/uL (152-406); RBC Red Blood Cell Count 3.89 M/uL (3.86-4.86)
[2024-10-12 10:16] LABS: PT Prothrombin Time 12.2 SECONDS (10-13.0); PTT, Activated Partial Thromb 29.9 SECONDS (27.2-37.4); Protime INR 1.07
[2024-10-12 10:28] LABS: SARS-CoV-2 Antigen Rapid Res Negative (Negative)
--- NOTE | 2024-10-12 10:41 | RAD REPORT ---
Procedure: Chest Single View HISTORY: Cough COMPARISON: 2021 FINDINGS: The lungs appear clear of acute infiltrate. No significant pleural effusion noted. The heart is normal size. IMPRESSION: No acute abnormality is displayed.
[2024-10-12 10:47] LABS: Anion Gap 10.5 mEq/L (5.0-15.0); Potassium 3.5 mEq/L (3.5-5.1); Troponin High Sensitivity 4.6 pg/mL (<58.9)
--- NOTE | 2024-10-12 12:05 | EDPHYS ---
Physician Documentation [facility] Name: Gregoria Vela Age: 74 yrs Sex: Female : 1950 Arrival Date: 10/12/2024 Time: 09:19 Bed 8 Private MD: ED Physician Reinaldo Nascimento HPI: 10/12 09:37 This 74 yrs old Female presents to ER via Ambulatory with complaints of Breathing rn Difficulty, Cough, Congestion. 09:37 The patient has shortness of breath at rest, with light activity. Onset: The rn symptoms/episode began/occurred 1 week(s) ago. The patient's shortness of breath is aggravated by light activity, supine position, talking, walking. Severity of symptoms: At their worst the symptoms were mild in the emergency department the symptoms are worse. Patient reports 1 week of cough, productive of yellow sputum, orthopnea and dyspnea on exertion. Patient reports mild chest discomfort. Has history of congestive heart failure and takes diuretics. No lower extremity swelling. Seen by PCP recently and placed on doxycycline. Patient feels worse.. Historical: - Allergies: 09:32 ACETAMINOPHEN; ss 09:32 Hydrocodone-Acetaminophen; ss 09:32 Latex; ss - PMHx: 09:32 CAD; cardiac stent; skin cancer; plate in head; LYMPHOMA; Hyperlipidemia; Hypertension; ss chronic back pain; - PSHx: 09:32 plate in head; Angioplasty (plate in head); ss - Immunization history:: Adult Immunizations up to date. - Infectious Disease History:: Denies. - Family history:: not pertinent. - Hospitalizations: : No recent hospitalization is reported. - Social history:: Smoking status: Patient denies any tobacco usage or history of. ROS: 09:37 Constitutional: Negative for fever, chills, and weight loss, Neck: Negative for injury, rn pain, and swelling, Cardiovascular: Negative for chest pain, palpitations, and edema, Respiratory: Positive for cough and shortness of breath Abdomen/GI: Negative for abdominal pain, nausea, vomiting, diarrhea, and constipation, MS/Extremity: Negative for injury and deformity, Skin: Negative for injury, rash, and discoloration, Neuro: Negative for headache, weakness, numbness, tingling, and seizure, Exam: 09:37 Constitutional: This is a well developed, well nourished patient who is awake, alert, rn and in no acute distress. Cardiovascular: Regular rate and rhythm. No pulse deficits. Respiratory: Mild tachypnea, wheezing bilateral lower bases of lungs. No retractions Abdomen/GI: Soft, non-tender MS/ Extremity: Pulses equal, no cyanosis. Neuro: Awake and alert, GCS 15 16:23 ECG was reviewed by the Attending Physician. rn Vital Signs: 09:48 BP 178 / 68; Pulse 72; Resp 16; Temp 98; Pulse Ox 96% ; bp 11:14 BP 177 / 62; Pulse 67; Resp 16; Pulse Ox 98% ; bp 13:00 BP 174 / 55; Pulse 88; Resp 15; Pulse Ox 97% ; bp 14:00 BP 188 / 67; Pulse 78; Resp 15; Pulse Ox 99% ; bp 15:00 BP 188 / 66; Pulse 69; Resp 15; Pulse Ox 97% ; bp 16:00 BP 177 / 61; Pulse 72; Resp 15; Pulse Ox 95% ; bp MDM: 09:23 Medical Screening Exam initiated rn 11:58 Differential diagnosis: Anemia Anxiety Reaction Bronchitis CHF exacerbation, Myocardial rn Infarction pneumonia, Pneumothorax pulmonary edema. Data reviewed: vital signs, nurses notes. 12:04 Counseling: I had a detailed discussion with the patient and/or guardian regarding the rn historical points, exam findings, and any diagnostic results supporting the discharge/admit diagnosis, lab results, radiology results, the need for further work-up and treatment in the hospital. 10/12 09:34 Order name: BMP; Complete Time: 11: rn 10/12 09:34 Order name: Blood Culture Adult (2) rn 10/12 09:34 Order name: CBC with Diff; Complete Time: 11: rn 10/12 09:34 Order name: NT PRO-BNP; Complete Time: 11:03 rn 10/12 09:34 Order name: PT-INR; Complete Time: 11: rn 10/12 09:34 Order name: Ptt, Activated; Complete Time: 11: rn 10/12 09:34 Order name: Troponin HS; Complete Time: 11: rn 10/12 09:35 Order name: SARS RAPID; Complete Time: 11: rn 10/12 09:36 Order name: Lactate w/ 2H reflex if indic.; Complete Time: 11: rn 10/12 10:36 Order name: Ghost Lactate-NO COLLECT Timer EDMS 10/12 13:17 Order name: T4 Free EDMS 10/12 13:17 Order name: Thyroid Stimulating Hormone EDMS 10/12 13:17 Order name: Basic Metabolic Panel EDMS 10/12 13:17 Order name: Basic Metabolic Panel EDMS 10/12 13:17 Order name: Basic Metabolic Panel EDMS 10/12 13:17 Order name: Basic Metabolic Panel EDMS 10/12 13:17 Order name: CBC with Automated Diff EDMS 10/12 13:17 Order name: CBC with Automated Diff EDMS 10/12 13:17 Order name: CBC with Automated Diff EDMS 05 13:17 Order name: CBC with Automated Diff EDMS 05 13:17 Order name: Magnesium EDMS 10/12 13:17 Order name: Magnesium EDMS 10/12 13:17 Order name: Magnesium EDMS 10/12 13:17 Order name: Magnesium EDMS 10/12 13:17 Order name: Phosphorus EDMS 10/12 13:17 Order name: Phosphorus EDMS 10/12 13:17 Order name: Phosphorus EDMS 10/12 13:17 Order name: Phosphorus EDMS 10/12 13:17 Order name: Troponin High Sensitivity EDMS 10/12 13:17 Order name: Troponin High Sensitivity EDMS 10/12 13:17 Order name: Troponin High Sensitivity EDMS 05 14:14 Order name: Lactate Sepsis 2 HR Follow-up EDMS 10/12 09:34 Order name: XRAY CXR (1 view); Complete Time: 11:03 rn 10/12 09:34 Order name: Cardiac monitoring; Complete Time: 09:53 rn 10/12 09:34 Order name: EKG - Nurse/Tech; Complete Time: 09:53 rn 10/12 09:34 Order name: IV Saline Lock; Complete Time: 09:54 rn 10/12 09:34 Order name: Labs collected and sent; Complete Time: 09:54 rn 10/12 09:34 Order name: O2 Per Protocol; Complete Time: 09:54 rn 10/12 09:34 Order name: O2 Sat Monitoring; Complete Time: 09:54 rn EC:23 Rate is 72 beats/min. Rhythm is regular. Left axis deviation noted. QRS is positive in rn lead I and negative in lead aVF. UT interval is normal. QRS interval is normal. QT interval is normal. No Q waves. T waves are Normal. No ST changes noted. Clinical impression: NSR w/ Non-specific ST/T Changes. Interpreted by me. Reviewed by me. Administered Medications: 12:43 Drug: Zithromax IVPB 500 mg IVPB once over 1 hrs; mix in 250 mL NS Route: IVPB; Infused bp Over: 1 hrs; Site: right antecubital; 12:44 Drug: Rocephin IV 1 grams IV at calculated rate once; Given slow IV push per pharmacy bp instructions Route: IV; Rate: calculated rate; Site: right antecubital; Disposition Summary: 10/12/24 12:05 Hospitalization Ordered Notes: Hospitalization Status: Observation rn Provider: Ant Nascimento rn Condition: Stable rn Problem: new rn Symptoms: are unchanged rn Bed/Room Type: Standard rn Location: Telemetry/MedSurg (observation)(10/12/24 17:57) ss Room Assignment: 229(10/12/24 17:57) ss Diagnosis - Dyspnea, unspecified rn - Pneumonia, unspecified organism rn Forms: - Medication Reconciliation Form rn - SBAR form rn - Leadership Thank You Letter rn Signatures: Dispatcher [employer] EDMS Reinaldo Nascimento MD MD rn Blanchard, Shelby, RN RN Emile Cruz RN RN bp Corrections: (The following items were deleted from the chart) 09:35 09:35 BASIC METABOLIC PANEL+C.LAB.BRZ ordered. EDMS EDMS 09:35 09:35 BLOOD CULTURE*+BA.LAB.BRZ ordered. EDMS EDMS 09:35 09:35 CBC+H.LAB.BRZ ordered. EDMS EDMS 09:35 09:35 PROBNP+C.LAB.BRZ ordered. EDMS EDMS 09:35 09:35 PROTIME (+INR)+COAG.LAB.BRZ ordered. EDMS EDMS 09:35 09:35 PTT, ACTIVATED+COAG.LAB.BRZ ordered. EDMS EDMS 09:35 09:35 Troponin High Sensitivity+C.LAB.BRZ ordered. EDMS EDMS 09:35 09:35 Chest Single View+RAD.RAD.BRZ ordered. EDMS EDMS 15:29 12:05 Telemetry/MedSurg (observation) rn bp 15:29 12:05 rn bp 17:57 15:29 [facility] ER HOLD bp ss 17:57 15:29 ERHOLD- bp ss
--- NOTE | 2024-10-12 12:05 | ER ---
Nurse's Notes [facility] Name: Gregoria Vela Age: 74 yrs Sex: Female : 1950 Arrival Date: 10/12/2024 Time: 09:19 Bed 8 Private MD: Diagnosis: Dyspnea, unspecified;Pneumonia, unspecified organism Presentation: 10/12 09:31 Chief complaint: Patient states: Cough and shortness of breath that began 5 days ago. ss Saw PCP on Monday, was told she had bronchitis and was prescribed Doxycycline. Pt reports her symptoms are not improving. Coronavirus screen: Client denies travel out of the [place] in the last 14 days. Ebola Screen: Patient denies exposure to infectious person. Patient denies travel to an Ebola-affected area in the 21 days before illness onset. Initial Sepsis Screen: Does the patient meet any 2 criteria? No. Patient's initial sepsis screen is negative. Does the patient have a suspected source of infection? No. Patient's initial sepsis screen is negative. Risk Assessment: Do you want to hurt yourself or someone else? Patient reports no desire to harm self or others. Onset of symptoms was October 08, 2024. 09:31 Method Of Arrival: Ambulatory 09:31 Acuity: ERIC 3 Triage Assessment: 09:35 General: Appears in no apparent distress. Behavior is calm, cooperative, appropriate bp for age. Pain: Denies pain. EENT: No deficits noted. Neuro: No deficits noted. Cardiovascular: No deficits noted. Respiratory: Reports shortness of breath Onset: The symptoms/episode began/occurred gradually, the patient reports symptoms have resolved. GI: No signs and/or symptoms were reported involving the gastrointestinal system. : No signs and/or symptoms were reported regarding the genitourinary system. Derm: No deficits noted. Musculoskeletal: No deficits noted. Historical: - Allergies: 09:32 ACETAMINOPHEN; 09:32 Hydrocodone-Acetaminophen; 09:32 Latex; ss - PMHx: 09:32 CAD; cardiac stent; skin cancer; plate in head; LYMPHOMA; Hyperlipidemia; Hypertension; ss chronic back pain; - PSHx: 09:32 plate in head; Angioplasty (plate in head); ss - Immunization history:: Adult Immunizations up to date. - Infectious Disease History:: Denies. - Family history:: not pertinent. - Hospitalizations: : No recent hospitalization is reported. - Social history:: Smoking status: Patient denies any tobacco usage or history of. Screenin:[address] [facility] ED Fall Risk Assessment (Adult) History of falling in the last 3 months, bp including since admission No falls in past 3 months (0 pts) Confusion or Disorientation No (0 pts) Intoxicated or Sedated No (0 pts) Impaired Gait No (0 pts) Mobility Assist Device Used No (0 pt) Altered Elimination No (0 pt) Score/Fall Risk Level 0 - 2 = Low Risk Oriented to surroundings. Abuse screen: Denies threats or abuse. Denies injuries from another. Nutritional screening: No deficits noted. Tuberculosis screening: No symptoms or risk factors identified. Assessment: 09:35 General: SEE TRIAGE NOTE. bp 09:35 Cardiovascular: Rhythm is sinus rhythm. Respiratory: Airway is patent Respiratory bp effort is even, unlabored, Breath sounds are coarse. 11:14 Reassessment: Patient appears in no apparent distress at this time. Patient is alert, bp oriented x 3, equal unlabored respirations, skin warm/dry/pink. Vital Signs: 09:48 BP 178 / 68; Pulse 72; Resp 16; Temp 98; Pulse Ox 96% ; bp 11:14 BP 177 / 62; Pulse 67; Resp 16; Pulse Ox 98% ; bp 13:00 BP 174 / 55; Pulse 88; Resp 15; Pulse Ox 97% ; bp 14:00 BP 188 / 67; Pulse 78; Resp 15; Pulse Ox 99% ; bp 15:00 BP 188 / 66; Pulse 69; Resp 15; Pulse Ox 97% ; bp 16:00 BP 177 / 61; Pulse 72; Resp 15; Pulse Ox 95% ; bp ED Course: 09:21 Patient arrived in ED. mr 09:23 Reinaldo Nascimento MD is Attending Physician. rn 09:27 Emile Cruz, GELACIO is Primary Nurse. bp 09:32 Triage completed. ss 09:32 Arm band placed on right wrist. ss 09:32 Patient has correct armband on for positive identification. bp 09:53 EKG done, by ED staff. td1 09:55 Initial lab(s) drawn, by me, sent to lab. First set of blood cultures drawn by me. aa5 10:00 XRAY CXR (1 view) In Process Unspecified. EDMS 10:00 Inserted saline lock: 20 gauge in right antecubital area, using aseptic technique. aa5 Flushed with 10 mL NS. 12:05 Ant Nascimento MD is Hospitalizing Provider. rn 16:00 No provider procedures requiring assistance completed. Patient admitted, IV remains in bp place. Administered Medications: 12:43 Drug: Zithromax IVPB 500 mg IVPB once over 1 hrs; mix in 250 mL NS Route: IVPB; Infused bp Over: 1 hrs; Site: right antecubital; 12:44 Drug: Rocephin IV 1 grams IV at calculated rate once; Given slow IV push per pharmacy bp instructions Route: IV; Rate: calculated rate; Site: right antecubital; Medication: 16:02 VIS not applicable for this client. bp Outcome: 12:05 Decision to Hospitalize by Provider. rn 16:02 Admitted to ER Hold. Please see [facility] for further documentation. bp 16:02 Condition: stable 16:02 Instructed on the need for admit, 18:51 Patient left the ED. bp Signatures: Dispatcher [employer] EDMN Flora Hernández, Reg Reg mr Reinaldo Nascimento MD MD rn Calderon, Audri, RN RN aa5 Audrey Pacheco RN RN ss Peltier, Brian, RN RN bp Dowling, Trey td1
[2024-10-12] MEDS ORDERED: NA CHLORIDE 0.9% 250 ML ONE (12:28)
[2024-10-12] MEDS ORDERED: CEFTRIAXONE 1000 MG/VIAL ONE (12:28)
[2024-10-12] MEDS ORDERED: AZITHROMYCIN 500 MG INJ IVPB ONE (12:28)
--- NOTE | 2024-10-12 12:43 | P.HP ---
Certification for Inpatient Patient admitted to: Observation With expected LOS: <2 Midnights Patient will require the following post-hospital care: None Practitioner: I am a practitioner with admitting privileges, knowledge of patient current condition, hospital course, and medical plan of care. Services: Services provided to patient in accordance with Admission requirements found in Title 42 Section 412.3 of the Code of Federal Regulations Patient History Date of Service: 10/12/24 Reason for admission: URI, bronchitis failed outpatient antibiotics History of Present Illness: Gregoria Vela is a 74 year old female with Pmhx CAD; cardiac stent; Congesive heart failure, skin cancer; plate in head; LYMPHOMA; Hyperlipidemia; Hypertension; chronic back who presents to the ED with dyspnea and orthopnea for one week. She reports recently being prescribed doxycycline but symptoms have worsened. On examination, She is laying flat on the stretcher, on RA, no cough during examination, clear lung sounds. Chest xray is clear of an acute process, BNP 68, Lactic acid 2.4. Gregoria will be admitted to observation for URI, bronichitis. Allergies clopidogrel [From Plavix] Allergy (Verified 06/15/21 00:18) Hives/Rash latex Allergy (Verified 10/14/20 19:53) Hives/Rash Latex, Natural Rubber Allergy (Verified 10/14/20 19:53) Hives/Rash ticagrelor [From Brilinta] Allergy (Verified 06/14/21 22:58) Hives/Rash Home Medications: Acyclovir 200 mg PO Q4HP PRN 06/15/21 Albuterol Sulfate [Albuterol Sulfate Hfa] 2 puff IH Q6HP PRN 06/15/21 Aspirin [Wily Chewable Aspirin] 81 mg PO DAILY 06/15/21 Biotin 5,000 mcg PO DAILY 06/15/21 Ciprofloxacin HCl 500 mg PO BID 06/15/21 Diclofenac Sodium [Voltaren] 75 mg PO BID 06/15/21 Dicyclomine [Bentyl*] 20 mg PO QIDP PRN 06/15/21 Estradiol 2 mg PO DAILY 06/15/21 Famotidine [Pepcid*] 20 mg PO DAILY 06/15/21 Fenofibrate [Tricor*] 145 mg PO DAILY 06/15/21 Gabapentin [Neurontin*] 300 mg PO BEDTIME 06/15/21 carisoprodoL [Soma*] 350 mg PO Q8HP 06/15/21 gemfibroziL [Gemfibrozil] 600 mg PO BIDAC 06/15/21 hydrOXYzine HCL [Atarax] 100 mg PO BID 06/15/21 hydrOXYzine pamoate [Hydroxyzine Pamoate] 50 mg PO BID 06/15/21 icosapent ethyL [Vascepa 1 gm Cap] 2 gm PO BID 06/15/21 prasugrel HCL [Prasugrel HCl] 10 mg PO DAILY 06/15/21 Docusate/Senna [Senokot-S*] 2 tab PO BEDTIME PRN #60 tab 06/19/21 Furosemide [Lasix*] 20 mg PO DAILY #30 tab 06/19/21 Midodrine HCl [Proamatine*] 5 mg PO TID #90 tab 06/19/21 Valsartan [Diovan] 80 mg PO DAILY #30 tablet 06/19/21 - Past Medical/Surgical History Diabetic: No -: lymphoma; Hypertension; Hyperlipidemia; skin cancer; -: GERD -: IBS -: DDD -: Spondylosis -: Diverticulosis -: Hysterectomy -: Acrylic plate in head -: Cataracts -: Heart Stent -: Breast implants-removed and reconstruction r/t rupture of implant - Family History Mother -: Heart disease, Hypertension, Diabetes, Cancer Father -: Heart disease, Hypertension, Diabetes, Cancer - Social History Smoking Status: Never smoker Alcohol use: No CD- Drugs: No Caffeine use: No Review of Systems Other: per HPI Physical Examination - Physical Exam General: Alert, In no apparent distress, Oriented x3 HEENT: Atraumatic, Normocephalic Neck: Supple, 2+ carotid pulse no bruit Respiratory: Clear to auscultation bilaterally, Normal air movement Cardiovascular: Normal pulses, Regular rate/rhythm, Normal S1 S2 Capillary refill: <2 Seconds Gastrointestinal: Normal bowel sounds, Soft and benign Musculoskeletal: No clubbing Integumentary: No rashes Neurological: Normal speech, Normal tone - Studies Laboratory Data (last 24 hrs) 10/12/24 10/12/24 10/12/24 09:55 09:55 09:55 WBC 6.80 Hgb 12.2 Hct 35.7 L Plt Count 192 PT 12.2 INR 1.07 APTT 29.9 Sodium 141 Potassium 3.5 BUN 16 Creatinine 0.80 Glucose 96 Assessment and Plan - Plan Assessment and Plan Upper Respiratory infection failed outpatient antibiotics Intractable cough -Chest xray is clear of an acute process -Failed doxycycline outpatient -rocephin/azithromycin -robitussin, mucinex -duonebs -antiemetic GERD IBS DDD spondylosis Diverticulosis -Continue home medications DVT ppx Lovenox FUll code LOS 24 hour OBS Discharge Plan: Home Plan to discharge in: 24 Hours - Advance Directives Does patient have a Living Will: No Does patient have a Durable POA for Healthcare: No
[2024-10-12] MEDS: CEFTRIAXONE 1,000 MG in NA CHLORIDE 0.9% 50 ML IVPB SCH (13:30)
[2024-10-12] MEDS: AZITHROMYCIN IV 500 MG in NA CHLORIDE 0.9% 250 ML IVPB SCH (13:47)
[2024-10-12] MEDS: ENOXAPARIN 40 MG/0.4 ML SQ SCH (14:00)
[2024-10-12 19:51] VITALS: BMI 35.4
[2024-10-12] MEDS: GUAIFENESIN 600 MG SA TAB PO SCH (21:53)
[2024-10-12] MEDS: IPRATROPIUM BROM 0.5MG/2.5ML NEB SCH (21:59)
[2024-10-12] MEDS: ALBUTEROL 2.5 MG/3 ML NEB SOL NEB PRN (22:17)
[2024-10-12] MEDS: SIMETHICONE 80 MG CHEWABLE TAB PO PRN (22:50)
[2024-10-12] MEDS: MELATONIN 3 MG TABLET PO PRN (22:50)
[2024-10-13] MEDS: ACETAMINOPHEN 325 MG TABLET PO PRN (06:41)
[2024-10-13 07:23] LABS: Absolute Eosinophils 0.1 K/uL (0-0.5); Absolute Monocytes 0.7 K/uL (0.1-1.3); Basophils % 0.6 % (0-1.3); Eosinophils % 1.4 % (0-4.4); Hematocrit 33.5 % (36.0-45.0); Hemoglobin 11.5 g/dL (12.0-15.0); Lymphocytes % 29.5 % (15.3-44.8); MCH 31.3 pg (27.0-35.0); MCHC 34.2 g/dL (32.0-36.0); MCV 91.5 fL (80-100); MPV 8.4 fL (7.6-11.3); Monocytes % 9.7 % (3.3-12.3); Neutrophils % 58.8 % (41.7-73.7); Nucleated Red Blood Cells % 0.1 % (0-0); Platelets 167 thou/uL (152-406); RBC Red Blood Cell Count 3.67 M/uL (3.86-4.86); Red Cell Distribution Width 15.1 % (12.1-15.2)
[2024-10-13 07:50] LABS: Anion Gap 9.7 mEq/L (5.0-15.0); Magnesium 1.5 mg/dL (1.6-2.4); Phosphorus 3.2 mg/dL (2.5-4.9); Potassium 3.7 mEq/L (3.5-5.1); Thyroid Stimulating Hormone 1.61 uIU/mL (0.358-3.740)
[2024-10-13] MEDS: NA CHLORIDE 0.9% 0 ML ONE (09:41)
[2024-10-13] MEDS: GUAIFENESIN/CODEINE 5ML UCUP PO PRN (09:47)
[2024-10-13] MEDS: METOPROLOL XL 25 MG TAB PO SCH (13:24)
[2024-10-13] MEDS: GABAPENTIN 300 MG CAP PO SCH (13:25)
--- NOTE | 2024-10-13 17:46 | P.PN ---
Date of Service: 10/13/24 Subjective C/o of a persistent cough all night and diarrhea that started last night tolerating Room Air awaiting Cdiff results ROS 10 point ROS as noted above, otherwise negative Physical Exam General: Alert and Oriented x3, NAD HEENT: Atraumatic, Normocephalic Neck: Supple, 2+ carotid pulse no bruit Respiratory: Rhonichi, Normal air movement, on RA Cardiovascular: Normal pulses, RRR, Normal S1 S2 Capillary refill: <2 Seconds Gastrointestinal: Normal bowel sounds, Soft and benign Musculoskeletal: No clubbing Integumentary: No rashes Neurological: Normal speech, Normal tone Vitals Reviewed Problem list Upper Respiratory infection failed outpatient antibiotics Intractable cough History of IBS Diarrhea GERD DDD spondylosis Diverticulosis Assessment and Plan Upper Respiratory infection failed outpatient antibiotics Intractable cough -Chest xray is clear of an acute process -Failed doxycycline outpatient -Stopped rocephin/azithromycin -robitussin, mucinex -duonebs -antiemetic History of IBS Diarrhea -CDiff pending -stopped antibiotics GERD DDD spondylosis Diverticulosis -Continue home medications DVT ppx lovenox Full code LOS 24 hours
[2024-10-13] MEDS: KETOROLAC 30 MG/ML INJ IV ONE (18:38)
[2024-10-13] MEDS: hydrOXYzine HCL 25 MG TAB PO SCH (20:35)
[2024-10-13] MEDS: POTASSIUM CL SA 10 MEQ TAB PO ONE (22:20)
[2024-10-13] MEDS: Magnesium Sulfate 2gm IVPB 2 G/50 ML BAG IV ONE (22:20)
[2024-10-14 04:04] VITALS: O2SAT 95
[2024-10-14 05:09] LABS: C.diff Antigen/Toxin Ag neg : Tox neg (NEG : NEG); CDIFF INTERNAL NEG CONTROL White Background (WHITE BKGD); STOOL CONSISTENCY Liquid/Semi-Solid
[2024-10-14] MEDS ORDERED: CHLORASEPTIC LOZENGES PO PRN (06:34)
[2024-10-14 07:22] LABS: Absolute Basophils 0.1 K/uL (0-0.5); Absolute Eosinophils 0.1 K/uL (0-0.5); Absolute Lymphocytes (CBC) 2.3 K/uL (0.7-4.9); Absolute Monocytes 0.7 K/uL (0.1-1.3); Absolute Neutrophil 3.7 K/uL (1.8-8.0); Basophils % 0.9 % (0-1.3); Eosinophils % 2.1 % (0-4.4); Hematocrit 32.6 % (36.0-45.0); Hemoglobin 11.2 g/dL (12.0-15.0); Lymphocytes % 32.8 % (15.3-44.8); MCH 31.5 pg (27.0-35.0); MCHC 34.4 g/dL (32.0-36.0); MCV 91.6 fL (80-100); MPV 8.4 fL (7.6-11.3); Monocytes % 10.7 % (3.3-12.3); Neutrophils % 53.5 % (41.7-73.7); Nucleated Red Blood Cells % 0.1 % (0-0); Platelets 140 thou/uL (152-406); RBC Red Blood Cell Count 3.56 M/uL (3.86-4.86); Red Cell Distribution Width 15.3 % (12.1-15.2)
[2024-10-14 07:35] LABS: Anion Gap 9.9 mEq/L (5.0-15.0); Magnesium 2.2 mg/dL (1.6-2.4); Phosphorus 3.3 mg/dL (2.5-4.9); Potassium 3.9 mEq/L (3.5-5.1)
[2024-10-14 07:56] VITALS: BP 150/83; TEMP 98
[2024-10-14] MEDS: PRASUGREL (EFFIENT) 10 MG TAB PO SCH (09:00)
[2024-10-14] MEDS: VALSARTAN 160 MG TAB PO SCH (10:08)
[2024-10-14] MEDS: FUROSEMIDE 40 MG TABLET PO SCH (10:09)
[2024-10-14] MEDS: FAMOTIDINE 20 MG TAB PO SCH (10:09)
[2024-10-14] MEDS: METHYLPREDNISOLONE 40 MG INJ IV ONE (10:20)
--- NOTE | 2024-10-14 12:03 | EKG ---
Test Date: 2024-10-12 Test Time: 09:47:32 Multimedia Services Manager: LETICIA MEASUREMENT RESULTS: Intervals: Rate: 72 AK: 134 QRSD: 90 QT: 420 QTc: 459 [place]: P: 81 AK: 134 QRS: -32 T: 68 INTERPRETIVE STATEMENTS: Normal sinus rhythm Left axis deviation Low voltage QRS Cannot rule out Anterior infarct, age undetermined Abnormal ECG Compared to ECG 03/31/2024 11:43:45 Left-axis deviation now present Myocardial infarct finding now present Sinus bradycardia no longer present Electronically Signed On 10-14-24 12:02:29 CDT by Abdifatah Guzman
--- NOTE | 2024-10-14 14:38 | P.DS ---
Admission Date: 10/13/24 Discharge Date: 10/14/24 Disposition: ROUTINE DISCHARGE Discharge Condition: GOOD Reason for Admission: URI, bronchitis failed outpatient antibiotics Brief History of Present Illness: Gregoria Vela is a 74 year old female with Pmhx CAD; cardiac stent; Congesive heart failure, skin cancer; plate in head; LYMPHOMA; Hyperlipidemia; Hypertension; chronic back who presents to the ED with dyspnea and orthopnea for one week. She reports recently being prescribed doxycycline but symptoms have worsened. On examination, She is laying flat on the stretcher, on RA, no cough during examination, clear lung sounds. Chest xray is clear of an acute process, BNP 68, Lactic acid 2.4. Gregoria will be admitted to observation for URI, bronichitis. Hospital Course: 74-year-old female was admitted to hospital for bronchitis, dyspnea. She subsequently developed significant diarrhea during her hospitalization. She was tested for C. difficile which was negative, I believe the diarrhea is likely a side effect of the antibiotics, her white blood cell count has been within normal limits and she has remained afebrile throughout hospitalization. Blood culture showed no growth in 24 hours. She is stable for discharge and outpatient follow-up with her primary care doctor. At discharge patient should continue her home medications Prescriptions for low-dose prednisone, as needed inhaler and Tessalon Perles sent to her pharmacy. Vital Signs/Physical Exam: Temp Pulse Resp BP Pulse Ox 98.0 F 79 18 150/83 H 94 10/14/24 07:55 10/14/24 07:55 10/14/24 07:55 10/14/24 07:55 10/14/24 07:55 General: Alert, In no apparent distress, Oriented x3 HEENT: Atraumatic, PERRLA Neck: Supple, JVD not distended Respiratory: Clear to auscultation bilaterally, Normal air movement Cardiovascular: Regular rate/rhythm, Normal S1 S2 Gastrointestinal: Normal bowel sounds Musculoskeletal: No tenderness Integumentary: No rashes Neurological: Normal speech, Normal affect Laboratory Data at Discharge: WBC 7.00 thou/uL (4.3-10.9) 10/14/24 07:10 Hgb 11.2 g/dL (12.0-15.0) L 10/14/24 07:10 Hct 32.6 % (36.0-45.0) L 10/14/24 07:10 Plt Count 140 thou/uL (152-406) L 10/14/24 07:10 PT 12.2 SECONDS (10-13.0) 10/12/24 09:55 INR 1.07 10/12/24 09:55 APTT 29.9 SECONDS (27.2-37.4) 10/12/24 09:55 Sodium 140 mEq/L (136-145) 10/14/24 07:10 Potassium 3.9 mEq/L (3.5-5.1) 10/14/24 07:10 BUN 11 mg/dL (7-18) 10/14/24 07:10 Creatinine 0.68 mg/dL (0.55-1.02) 10/14/24 07:10 Glucose 102 mg/dL (74-106) 10/14/24 07:10 Phosphorus 3.3 mg/dL (2.5-4.9) 10/14/24 07:10 Magnesium 2.2 mg/dL (1.6-2.4) 10/14/24 07:10 Home Medications: Carisoprodol [Soma] 350 mg PO Q8HP PRN 10/13/24 Estradiol 2 mg PO DAILY 10/13/24 Famotidine [Pepcid] 40 mg PO DAILY 10/13/24 Furosemide [Lasix*] 40 mg PO DAILY 10/13/24 Gabapentin 300 mg PO TID 10/13/24 Metoprolol Succinate [Toprol Xl*] 25 mg PO DAILY 10/13/24 Prasugrel HCl [Effient] 10 mg PO DAILY 10/13/24 Valsartan [Diovan] 320 mg PO DAILY 10/13/24 hydrOXYzine HCL [Atarax] 50 mg PO BID 10/13/24 traMADol HCL [Ultram*] 50 mg PO Q8HP PRN 10/13/24 Albuterol Inhaler [Ventolin Inhaler*] 2 puff IH Q6H PRN #2 inh 10/14/24 Benzonatate [Tessalon Perle] 100 mg PO TID PRN #30 cap 10/14/24 predniSONE [Deltasone*] 10 mg PO BID 5 Days #10 tab 10/14/24 New Medications: predniSONE [Deltasone*] 10 mg PO BID 5 Days #10 tab Benzonatate [Tessalon Perle] 100 mg PO TID PRN #30 cap PRN Reason: Cough Albuterol Inhaler [Ventolin Inhaler*] 2 puff IH Q6H PRN #2 inh PRN Reason: Shortness Of Breath Physician Discharge Instructions: 74-year-old female was admitted to hospital for bronchitis, dyspnea. She subsequently developed significant diarrhea during her hospitalization. She was tested for C. difficile which was negative, I believe the diarrhea is likely a side effect of the antibiotics, her white blood cell count has been within normal limits and she has remained afebrile throughout hospitalization. Blood culture showed no growth in 24 hours. She is stable for discharge and outpatient follow-up with her primary care doctor. At discharge patient should continue her home medications Prescriptions for low-dose prednisone, as needed inhaler and Tessalon Perles sent to her pharmacy. Diet: Regular Activity: Ad jose g Followup: Laly Burr [Primary Care Provider] - 1-2 Weeks Time spent managing pt's care (in minutes): 45
== END 2024-10-14 10:58 | disposition home or self-care (01) | DRG 202 ==
LOC: ER 09:19 → ERHOLD 13:07 → 2ND 19:30 → OBSVTOIN 10-13 16:53
PROVIDERS: ADMIT Hospitalist; ATTEND Hospitalist
DX: J40 Bronchitis, not specified as acute or chronic (principal); K52.1 Toxic gastroenteritis and colitis; E78.5 Hyperlipidemia, unspecified; I10 Essential (primary) hypertension; M47.9 Spondylosis, unspecified; J06.9 Acute upper respiratory infection, unspecified; I25.10 Atherosclerotic heart disease of native coronary artery without angina pectoris; K57.90 Diverticulosis of intestine, part unspecified, without perforation or abscess without bleeding; T36.95XA Adverse effect of unspecified systemic antibiotic, initial encounter; Z88.5 Allergy status to narcotic agent; Z95.5 Presence of coronary angioplasty implant and graft; Z88.8 Allergy status to other drugs, medicaments and biological substances; Z11.52 Encounter for screening for COVID-19; Z79.82 Long term (current) use of aspirin; Z91.040 Latex allergy status; Z79.899 Other long term (current) drug therapy; Z85.828 Personal history of other malignant neoplasm of skin; Z90.710 Acquired absence of both cervix and uterus
CPT/HCPCS: 36415; 71045; 80048; 83605; 83735; 83880; 84100; 84439; 84443; 84484; 85025; 85610; 85730; 87040; 87324; 87426; 93005; 96374; 96375; 99285; G0378; J0696; J1650; J2919; J3475; J7050; J7613; J7644

== ENCOUNTER 2025-02-28 12:12 | Emergency (ER) | payer OTHER ==
--- OUTSIDE RECORDS SUMMARY | 2025-02-28 12:15 | XMS REPORT | Clinical Summary ---
Author Name Unknown Organization [facility] Address [address] [place] [address] Care Team Providers Care Crime Scene Evidence Technician Name Role Phone Elpidio Burr Unavailable Elpidio Burr Unavailable Devon Godwin MD Unavailable [phone] Yanick Shoemaker MD Unavailable [phone] Lito Kramer MD Primary Care Provider [email or web address] [email or web address] Mara Chandler MD Unavailable Marisol Box MD Unavailable [phone] Myron Shoemaker MD Unavailable [email or web address] Akilah Palma APRN Primary Care Provider [phone] Allergies Active Allergy Reactions Criticality Noted Date [...] Department Care Team Description 07/26/2024 3:20 PM PRODUCTION PROOFREADER Clinical Support Undiagnosed Breast Clinic [address] [facility], [address]th [place] [address] Akilah Palma APRN 07/26/2024 12:44 PM PRODUCTION PROOFREADER - 07/26/2024 11:59 PM PRODUCTION PROOFREADER Hospital Encounter Breast Imaging [address] [facility], 5th [place] [address] Akilah Palma APRN Mammography abnormal Discharge Disposition: Home 07/26/2024 11:27 AM PRODUCTION PROOFREADER - 07/26/2024 12:43 PM PRODUCTION PROOFREADER Hospital Encounter Breast Imaging [address] [facility], [address]th [facility] [place] [address] Akilah Palma APRN Mammography abnormal Discharge Disposition: Home 07/26/2024 10:00 AM PRODUCTION PROOFREADER Office Visit Undiagnosed Breast Clinic [address] [place] [address], [address] [place] [address] Akilah Palma APRN Breast lump present (Primary Dx); Mastodynia; History of B-cell lymphoma; Encounter for other screening for malignant neoplasm of breast 07/26/2024 Travel 07/24/2024 8:10 PM PRODUCTION PROOFREADER Ancillary Procedure Image Library [address] [place] [address] Akilah Palma APRN Cancer 07/24/2024 8:05 PM PRODUCTION PROOFREADER Ancillary Procedure [facility] [address] [place] [address] Akilah Palma APRN Cancer 07/24/2024 8:00 PM PRODUCTION PROOFREADER Ancillary Procedure [facility] [address] [place] [address] Akilah Palma APRN Cancer 07/24/2024 11:00 AM PRODUCTION PROOFREADER NPR MDA PATIENT ACCESS Akilah Palma APRN 07/22/2024 8:05 PM PRODUCTION PROOFREADER Ancillary Procedure [facility] [address] [place] [address] Akilah Palma APRN Cancer 07/22/2024 8:00 PM PRODUCTION PROOFREADER Ancillary Procedure Image [facility] [address] [place] [address] Akilah Palma APRN Cancer 07/17/2024 Orders Only Cancer Prevention Center ([facility]) [address] [facility] [place], [address] [place] [address] Akilah Palma APRN Mammography abnormal (Primary Dx); Postmenopausal hormone replacement therapy after 02/29/2024 Immunizations Immunization Administration Dates Next Due Fluad Quad Pf [...] on file Legal Sex Female 2:24 PM PRODUCTION PROOFREADER Gender Identity Not on file Sexual Orientation [...] Comments Blood Pressure 146/69 07/26/2024 9:48 AM PRODUCTION PROOFREADER Pulse 93 07/26/2024 9:48 AM PRODUCTION PROOFREADER Temperature - - Respiratory Rate 18 07/26/2024 9:48 AM PRODUCTION PROOFREADER Oxygen Saturation - - Inhaled Oxygen Concentration - - Weight 84 kg (185 lb 3 oz) 07/26/2024 9:48 AM CS T Height 152 cm (4' 11.84") 07/26/2024 9:48 AM PRODUCTION PROOFREADER Body Mass Index 36.36 07/26/2024 9:48 AM PRODUCTION PROOFREADER Plan of Treatment Upcoming Encounters Date Type Department Care Team (Late st Contact Info) Description 07/31/2025 10:25 AM PRODUCTION PROOFREADER Appointment Breast Imaging ([facility]) [address] [facility] [place], [address] [place] [address] Akilah Palma, EXCEL SPECIALIST [address] [place] [address] [email or web address] 07/31/2025 11:20 AM PRODUCTION PROOFREADER Office Visit Cancer Prevention [facility] ([facility]) [address] [facility] [place], [address] [place] [address] Akilah Palma, EXCEL SPECIALIST [address] [place] [address] [email or web address] Maintenance Due Date Last Done Comments Pneumococcal Vaccine: 50+ Ye ars (3 of 3 - PCV20 or PCV21) 04/02/2018 06/05/2014, 04/02/2013 COVID-19 Vaccine (3 - Modern a risk series) 07/02/2021 06/04/2021, 08/05/2020, 07/08/2020 Influenza Vaccine (#1) 2025 2, 03/26/2021, 03/26/2021, Additional history exists Procedures Procedure Name Priority Date/Time Associated Diagnosis Comments US BREAST COMPLETE BILATERAL Routine 07/26/2024 2:20 PM PRODUCTION PROOFREADER Mammography abnormal MAMMO DIGITAL DIAGNOSTIC BILATERAL W HADLEY Routine 07/26/2024 12:48 PM PRODUCTION PROOFREADER Mammography abnormal OSI US BREAST Routine 03/06/2024 8:16 PM CDT Cancer OSI US BREAST Routine 03/06/2024 8:16 PM CDT Cancer after 02/29/2024 Results * US Breast Complete Bilateral (07/26/2024 2:20 PM PRODUCTION PROOFREADER) Anatomical Region Laterality Modality Breast Bilateral Ultrasound Impressions 07/26/2024 4:45 PM PRODUCTION PROOFREADER Bilateral No suspicious sonographic findings identified. Recommend clinical follow-up for the patient's breast pain and bilateral palpable findings. Overall BI-RAD Category: 2 - Benign Recommend return to annual screening mammography, due on 07/2025. Narrative 07/26/2024 4:45 PM PRODUCTION PROOFREADER CLINICAL INDICATION: Patient is a 74 y.o. [...] Mammography Digital Diagnostic Bilateral with [facility] at [facility]NI[facility]: Real-time sonographic imaging was performed on [...] Diagnostic Bilateral with [facility] (07/26/2024 12:48 PM PRODUCTION PROOFREADER) Anatomical Region Laterality Modality Breast Bilateral Mammography Impressions 07/26/2024 4:42 PM PRODUCTION PROOFREADER Right 1) Pertinent Negative: Right breast pertinent negative in the lower region. Additional Imaging: Breast Ultrasound is recommended. Bilateral 2) Pertinent Negative: Both breasts pertinent negative in the upper outer quadrants. Additional Imaging: Breast Ultrasound is recommended. Overall BI-RAD Category: 0 - Incomplete: Needs Additional Imaging Evaluation Additional Imaging: Breast Ultrasound is recommended for both breasts. Narrative 07/26/2024 4:42 PM PRODUCTION PROOFREADER CLINICAL INDICATION: Patient is a 74 y.o. [...] or right breast pain. us Akilah Palma EXCEL SPECIALIST IMG MAMMOGRAPHY ORDERABLE S Final Result * OSI US Breast (03/06/2024 8:16 PM CDT) Only the most recent of2 resultswithin the time period is included. Narrative [facility] - 07/22/2024 8:16 PM PRODUCTION PROOFREADER Study acquired at another institution. For comparison only. No [facility] interpretation requested or available. us Akilah Palma EXCEL SPECIALIST IMG OUTSIDE IMAGE ORDERAB LES Final Result [facility] after 02/29/2024 Insurance [employer] MEDICARE PPO [employer] MEDICARE PPO Care Teams Crime Scene Evidence Technician Relationship Specialty Start Date End Date Elpidio Burr PCP - External Referring 06/15/16 Elpidio Burr PCP - External Follow Up A 06/15/16 Devon Godwin MD [address] [phone] PCP - External Follow Up B Cardiology 06/15/16 Yanick Shoemaker MD [address] [place] [phone] [email or web address] PCP - External Follow Up C General Surgery 06/15/16 Lito Kramer MD [address] [place] [phone] [email or web address] PCP - General Lymphoma and Myeloma 08/14/20 07/16/24 Akilah Palma APRN [address] [place] [id number] [email or web address] PCP - General Cancer Prevention 07/17/24 Mara Chandler MD [address] [place] [id number] [email or web address] Physician Lymphoma and Myeloma 06/15/16 Marisol Box MD [address] [place] [id number] [email or web address] Consulting Physician Dermatology 06/24/16 Myron Shoemaker MD [email or web address] Consulting Physician Rheumatology 06/17/16
--- NOTE | 2025-02-28 13:49 | ER ---
Nurse's Notes [facility] Name: Gregoria Vela Age: 75 yrs Sex: Female : 1950 Arrival Date: 02/28/2025 Time: 12:12 Bed [id number] Private MD: Diagnosis: Presentation: 02/28 12:20 Chief complaint: Patient states: RASH STARTED MONDAY WENT TO [employer]. CLEARED UP db MONDAY. STATES THEN PUT MEDICATION ALL OVER FACE MONDAY AND RASH INCREASED ALL OVER FACE AND DOWN NECK. STATES STARTED A MEDROL STARTED TODAY. Coronavirus screen: Client denies travel out of the [place] in the last 14 days. At this time, the client does not indicate any symptoms associated with coronavirus-19. Ebola Screen: Patient negative for fever greater than or equal to 101.5 degrees Fahrenheit, and additional compatible Ebola Virus Disease symptoms Patient denies exposure to infectious person. Patient denies travel to an Ebola-affected area in the 21 days before illness onset. No symptoms or risks identified at this time. Onset: The symptoms/episode began/occurred gradually. Anaphylaxis evaluation, no signs or symptoms of anaphylaxis were noted. Initial Sepsis Screen: Does the patient meet any 2 criteria? No. Patient's initial sepsis screen is negative. Does the patient have a suspected source of infection? No. Patient's initial sepsis screen is negative. Risk Assessment: Do you want to hurt yourself or someone else? Patient reports no desire to harm self or others. Onset of symptoms was February 24, 2025. 12:20 Method Of Arrival: Ambulatory db 12:20 Acuity: ERIC 3 db Triage Assessment: 12:22 General: Appears in no apparent distress. uncomfortable, Behavior is calm, cooperative. db Pain: Complains of pain in face. Neuro: Level of Consciousness is awake, alert, obeys commands, Oriented to person, place, time, situation. Respiratory: Airway is patent Respiratory effort is even, unlabored, Respiratory pattern is regular, symmetrical. Derm: Rash noted that is red, on face and neck. Historical: - Allergies: 12:22 ACETAMINOPHEN; db 12:22 Hydrocodone-Acetaminophen; db 12:22 Latex; db - PMHx: 12:22 cardiac stent; chronic back pain; Hypertension; Hyperlipidemia; plate in head; db LYMPHOMA; skin cancer; CAD; - PSHx: 12:22 angioplasty (in); plate in head; db - Immunization history:: Adult Immunizations unknown. - Infectious Disease History:: Denies. - Social history:: Smoking status: Patient denies any tobacco usage or history of. Assessment: 13:09 Reassessment: pt not in lobby when called. iw Vital Signs: 12:20 BP 156 / 88; Pulse 72; Resp 16; Temp 98; Pulse Ox 99% ; Weight 79.38 kg; Height 5 ft. 0 db in. ; 12:20 Body Mass Index 34.18 (79.38 kg, 152.4 cm) db ED Course: 12:14 Patient arrived in ED. al6 12:15 [facility]ced[facility] sb4 12:15 Jason Cope MD is Attending Physician. sb4 12:22 Triage completed. db 12:22 Arm band placed on right wrist. db 13:02 Mica Yun, RN is Primary Nurse. iw Administered Medications: No medications were administered Outcome: 13:49 Patient left the ED. iw Signatures: Mica Yun, RN RN iw Celena Jameson RN RN db Mariah Saucedo PA-C PA-C sb4 Darcie Jones al6
[2025-02-28 13:54] VITALS: BP 156/88; TEMP 98; O2SAT 99
== END 2025-02-28 13:49 | disposition left against medical advice (07) ==
LOC: ER 12:12
DX: Z53.21 Procedure and treatment not carried out due to patient leaving prior to being seen by health care provider (principal)
CPT/HCPCS: 99281